=== PATIENT | male | born 1975 | race Caucasian/White ===

== ENCOUNTER 2020-09-13 14:53 | Emergency (ER) | payer SELFPAY ==
[2020-09-13 15:22] VITALS: BP 159/98; PULSE 58; RESP 18; TEMP 36.4; O2SAT 100; BMI 24.4
--- NOTE | 2020-09-13 15:37 | ED_ITS ---
Documented by User: SUSIE Garza 09/14/20 07:08 HPI - Nausea/Vomiting/Diarrhea General: Chief complaint: Nausea/Vomiting/Diarrhea Stated complaint: vomiting uncontrollably for last hour and half Time Seen by Provider: 09/13/20 15:32 History of Present Illness: HPI Narrative: Patient arrives a with vomiting since 2:00 today he is with his fianc?e. She said and that he has possible celiac disease been having problems for months she has been with him for about 90 days. For some reason the pain is worse today and vomiting again since 2:00. Patient not running fever has had some diarrhea is on opioid abuse medication. Patient is asking for medicine for nausea. MD elicited complaint: nausea, vomiting, diarrhea and abdominal pain Pertinent past history: other (Opioid abuse denies marijuana use) Onset (ago): month(s) Description of vomiting: bilious Description of diarrhea: semi-solid Associated nausea: Yes Associated abdominal pain: Yes Location of pain: Diffuse Severity: moderate Quality: aching Exacerbating factors: eating Relieving factors: none Associated symtoms: Reports no associated symptoms and nausea; Denies anxiety, change in vision, chest pain or headache(s) Review of Systems Narrative: Abdominal pain on and off for the last few months been worse the last few weeks fianc? says and then he vomited since 2 today Const: Denies: fever(s), chills or body aches Eyes: Denies: change in vision or blurry vision ENMT: Denies: throat pain or nasal congestion Card: Denies: chest pain or dyspnea on exertion Resp: Denies: dyspnea, productive cough or non-productive cough GI: Reports: abdominal pain, nausea, vomiting and diarrhea : Denies: difficulty urinating Musc: Denies: extremity pain Skin/Breast: Denies: rash Neuro: Denies: headache(s) Psych: Denies: anxiety or depression Festus/Lymph: Denies: easy bruising PFSH ED PFSH: Social History (Updated 07/02/20 @ 10:52 by Caroline Lay LPN) Smoking and tobacco status: current every day smoker Physical Exam Const: COMMON NORMALS: no acute distress, average body habitus and patient oriented x3 HENMT: COMMON NORMALS: normocephalic HEAD & SCALP: normal to inspection and normocephalic FACE & SINUS: normal facial exam Eye: COMMON NORMALS: conjunctivae normal GENERAL EYE: appearance normal, both eyes and all related structures CONJUNCTIVA: Yes conjunctivae normal Neck/C-Spine: COMMON NORMALS: no JVD Chest: COMMONS NORMALS: normal inspection of the chest Resp: COMMON NORMALS: normal respiratory effort and clear to auscultation bilaterally AUSCULTATION: clear to auscultation bilaterally Cardio: COMMON NORMALS: no JVD, regular rate and regular rhythm RATE: regular rate RHYTHM: regular rhythm GI: COMMON NORMALS: Normal to inspection, nondistended, normoactive bowel sounds present PALPATION: Yes Tenderness to palpation present (GI) Extremity: COMMON NORMALS: normal to inspection and full ROM Neuro: COMMON NORMALS: patient oriented x3 Course Vital Signs: Vital signs: Vital Signs Temperature 97.6 F 09/13/20 15:22 Pulse Rate 58 L 09/13/20 15:22 Respiratory Rate 16 09/13/20 20:49 Blood Pressure 159/98 09/13/20 15:22 Pulse Oximetry 100 09/13/20 15:22 MDM - Nausea/Vomiting/Diarrhea Lab Data: Labs: Lab Results 09/13/20 09/13/20 09/13/20 Range/Units 16:52 16:52 18:06 WBC Cancelled 11.1 H Corrected WBC Cancelled RBC Cancelled 4.36 Hgb Cancelled 13.1 Hct Cancelled 39.6 L MCV Cancelled 90.8 MCH Cancelled 30.0 MCHC Cancelled 33.1 RDW Cancelled 12.3 Plt Count Cancelled 176 MPV Cancelled 10.3 Gran % Cancelled Neut % (Auto) Cancelled 90.9 Lymph % (Auto) Cancelled 6.0 [place] % (Auto) Cancelled 2.4 Eos % (Auto) Cancelled 0.1 Baso % (Auto) Cancelled 0.2 Neut # (Auto) Cancelled 10.07 H Lymph # (Auto) Cancelled 0.7 L [place] # (Auto) Cancelled 0.3 Eos # (Auto) Cancelled 0.0 Baso # (Auto) Cancelled 0.0 Absolute Gran (aut o) Cancelled Nucleated RBC % (a uto) Cancelled 0 Nucleated RBCs # Cancelled 0.0 Sodium 140 (136-145) mmol/L Potassium 4.1 (3.5-5.1) mmol/L Chloride 99 (98-107) mmol/L Carbon Dioxide 28 (22-29) mmol/L Anion Gap 17.1 (5-19) BUN 13 (6-20) mg/dL Creatinine 0.8 (0.7-1.2) mg/dL GFR Calculation 104.1 (90-130) mL/min Glucose 127 H (65-115) mg/dL Calculated Osmolal ity 292 (285-295) mOsm/k g Calcium 10.4 (8.5-10.5) mg/dL Magnesium 1.9 (1.7-2.3) mg/dL Total Bilirubin 0.5 (0.15-1.2) mg/dL AST 47 H (0-40) U/L ALT 65 H (0-41) U/L Alkaline Phosphata se 66 (40-130) IU/L Total Protein 8.2 (6.6-8.7) g/dL Albumin 5.0 (3.5-5.2) g/dL Globulin 3.2 (1.3-4.6) g/dL Lipase 33 (13-60) U/L Urine Color (Yellow) Urine Appearance (CLEAR) Urine pH (5-7) Ur Specific Gravit y (1.005-1.030) Urine Protein (Negative) Urine Glucose (UA) (Normal) Urine Ketones (Negative) Urine Blood (Negative) Urine Nitrate (Negative) Urine Bilirubin (Negative) Urine Urobilinogen (Negative) mg/dL Ur Leukocyte Debi ase (Negative) Ethyl Alcohol < 10 (0-10) mg/dL 10/15/20 Range/Units 19:30 WBC Corrected WBC RBC Hgb Hct MCV MCH MCHC RDW Plt Count MPV Gran % Neut % (Auto) Lymph % (Auto) [place] % (Auto) Eos % (Auto) Baso % (Auto) Neut # (Auto) Lymph # (Auto) [place] # (Auto) Eos # (Auto) Baso # (Auto) Absolute Gran (aut o) Nucleated RBC % (a uto) Nucleated RBCs # Sodium (136-145) mmol/L Potassium (3.5-5.1) mmol/L Chloride (98-107) mmol/L Carbon Dioxide (22-29) mmol/L Anion Gap (5-19) BUN (6-20) mg/dL Creatinine (0.7-1.2) mg/dL GFR Calculation (90-130) mL/min Glucose (65-115) mg/dL Calculated Osmolal ity (285-295) mOsm/k g Calcium (8.5-10.5) mg/dL Magnesium (1.7-2.3) mg/dL Total Bilirubin (0.15-1.2) mg/dL AST (0-40) U/L ALT (0-41) U/L Alkaline Phosphata se (40-130) IU/L Total Protein (6.6-8.7) g/dL Albumin (3.5-5.2) g/dL Globulin (1.3-4.6) g/dL Lipase (13-60) U/L Urine Color Yellow (Yellow) Urine Appearance Clear (CLEAR) Urine pH 6.5 (5-7) Ur Specific Gravit y 1.010 (1.005-1.030) Urine Protein Neg (Negative) Urine Glucose (UA) Norm (Normal) Urine Ketones 1+ H (Negative) Urine Blood Neg (Negative) Urine Nitrate Negative (Negative) Urine Bilirubin 2+ H (Negative) Urine Urobilinogen Neg (Negative) mg/dL Ur Leukocyte Debi ase Negative (Negative) Ethyl Alcohol (0-10) mg/dL Discharge Plan Discharge Patient Disposition: Home Clinical Impression: Gastroenteritis Nausea & vomiting Qualifiers: Vomiting type: unspecified Vomiting Intractability: unspecified Qualified Code(s): R11.2 - Nausea with vomiting, unspecified Condition: Stable Prescriptions: New Zofran 4 mg tablet 4 mg PO 6XD PRN (Reason: nausea and vomiting) 4 Days Qty: 10 RF: 0 No Action buprenorphine HCl 8 mg tablet, sublingual 8 mg SUBLINGUAL BID RF: 0 Discharge Orders: Discharge Order (Routine); Ordered 09/13/20 Ordered By: Erika Fowler Discharge Diet: Advance as tolerated and Clear Liquid Discharge Activity: Limit activity as instructed Patient Instructions: Gastroenteritis (ED), Acute Nausea and Vomiting (ED) Activity Restrictions/Additional Instructions: Rest at home today and tomorrow Push fluids, wash hands frequently, follow-up with your primary care provider in 3 to 4 days for reevaluation Return to emergency department if you develop blood in your stool, blood while vomiting, vomiting with use of Zofran, inability to keep fluids down. Continue current medications Clear liquid diet for the first 12 hours, then may advance to bland diet such as crackers, bread or chicken noodle soup Discharge Date/Time: 09/13/20 20:49 Coding Level of Care Code ED Curtain Drier for Chg Fwd Exam Comprehensive Documented by User: BARBARA Thomas 09/13/20 22:21 HPI - Nausea/Vomiting/Diarrhea General: Chief complaint: Nausea/Vomiting/Diarrhea Stated complaint: vomiting uncontrollably for last hour and half Time Seen by Provider: 09/13/20 15:32 [facility] ED PFS: Social History (Updated 07/02/20 @ 10:52 by Caroline Lay LPN) Smoking and tobacco status: current every day smoker Course ED course: Transition of care from Declan Vieira, 45-year-old male patient presents to the emergency department with acute onset of nausea vomiting that started at 2 pm today. He reports several day history of stomach upset. His significant other who is with him reports he has been around paint which causes him to experience stomach upset. He is complaining of intense anxiety, requesting Ativan. Hydroxyzine was offered but he says he does not like the way it makes him feel. He has history of substance abuse, heroin, last use was November 2019. Reports was in psychiatric facility, detox with completion of the program, currently in treatment at [facility] by outpatient and is doing well. He denies relapse. Zofran was administered, CT abdomen pelvis without acute findings, he was able to tolerate p.o. fluids without difficulty. Able to ambulate in the ED without difficulty, serology results and CT findings discussed with patient and significant other, questions were answered, appropriate follow-up recommended with primary care. Vital Signs: Vital signs: Vital Signs Temperature 97.6 F 09/13/20 15:22 Pulse Rate 58 L 09/13/20 15:22 Respiratory Rate 16 09/13/20 20:49 Blood Pressure 159/98 09/13/20 15:22 Pulse Oximetry 100 09/13/20 15:22 MDM - Nausea/Vomiting/Diarrhea Lab Data: Labs: Lab Results 09/13/20 09/13/20 09/13/20 Range/Units 16:52 16:52 18:06 WBC Cancelled 11.1 H Corrected WBC Cancelled RBC Cancelled 4.36 Hgb Cancelled 13.1 Hct Cancelled 39.6 L MCV Cancelled 90.8 MCH Cancelled 30.0 MCHC Cancelled 33.1 RDW Cancelled 12.3 Plt Count Cancelled 176 MPV Cancelled 10.3 Gran % Cancelled Neut % (Auto) Cancelled 90.9 Lymph % (Auto) Cancelled 6.0 [place] % (Auto) Cancelled 2.4 Eos % (Auto) Cancelled 0.1 Baso % (Auto) Cancelled 0.2 Neut # (Auto) Cancelled 10.07 H Lymph # (Auto) Cancelled 0.7 L [place] # (Auto) Cancelled 0.3 Eos # (Auto) Cancelled 0.0 Baso # (Auto) Cancelled 0.0 Absolute Gran (aut o) Cancelled Nucleated RBC % (a uto) Cancelled 0 Nucleated RBCs # Cancelled 0.0 Sodium 140 (136-145) mmol/L Potassium 4.1 (3.5-5.1) mmol/L Chloride 99 (98-107) mmol/L Carbon Dioxide 28 (22-29) mmol/L Anion Gap 17.1 (5-19) BUN 13 (6-20) mg/dL Creatinine 0.8 (0.7-1.2) mg/dL GFR Calculation 104.1 (90-130) mL/min Glucose 127 H (65-115) mg/dL Calculated Osmolal ity 292 (285-295) mOsm/k g Calcium 10.4 (8.5-10.5) mg/dL Magnesium 1.9 (1.7-2.3) mg/dL Total Bilirubin 0.5 (0.15-1.2) mg/dL AST 47 H (0-40) U/L ALT 65 H (0-41) U/L Alkaline Phosphata se 66 (40-130) IU/L Total Protein 8.2 (6.6-8.7) g/dL Albumin 5.0 (3.5-5.2) g/dL Globulin 3.2 (1.3-4.6) g/dL Lipase 33 (13-60) U/L Urine Color (Yellow) Urine Appearance (CLEAR) Urine pH (5-7) Ur Specific Gravit y (1.005-1.030) Urine Protein (Negative) Urine Glucose (UA) (Normal) Urine Ketones (Negative) Urine Blood (Negative) Urine Nitrate (Negative) Urine Bilirubin (Negative) Urine Urobilinogen (Negative) mg/dL Ur Leukocyte Debi ase (Negative) Ethyl Alcohol < 10 (0-10) mg/dL 09/13/20 Range/Units 19:30 WBC Corrected WBC RBC Hgb Hct MCV MCH MCHC RDW Plt Count MPV Gran % Neut % (Auto) Lymph % (Auto) [place] % (Auto) Eos % (Auto) Baso % (Auto) Neut # (Auto) Lymph # (Auto) [place] # (Auto) Eos # (Auto) Baso # (Auto) Absolute Gran (aut o) Nucleated RBC % (a uto) Nucleated RBCs # Sodium (136-145) mmol/L Potassium (3.5-5.1) mmol/L Chloride (98-107) mmol/L Carbon Dioxide (22-29) mmol/L Anion Gap (5-19) BUN (6-20) mg/dL Creatinine (0.7-1.2) mg/dL GFR Calculation (90-130) mL/min Glucose (65-115) mg/dL Calculated Osmolal ity (285-295) mOsm/k g Calcium (8.5-10.5) mg/dL Magnesium (1.7-2.3) mg/dL Total Bilirubin (0.15-1.2) mg/dL AST (0-40) U/L ALT (0-41) U/L Alkaline Phosphata se (40-130) IU/L Total Protein (6.6-8.7) g/dL Albumin (3.5-5.2) g/dL Globulin (1.3-4.6) g/dL Lipase (13-60) U/L Urine Color Yellow (Yellow) Urine Appearance Clear (CLEAR) Urine pH 6.5 (5-7) Ur Specific Gravit y 1.010 (1.005-1.030) Urine Protein Neg (Negative) Urine Glucose (UA) Norm (Normal) Urine Ketones 1+ H (Negative) Urine Blood Neg (Negative) Urine Nitrate Negative (Negative) Urine Bilirubin 2+ H (Negative) Urine Urobilinogen Neg (Negative) mg/dL Ur Leukocyte Debi ase Negative (Negative) Ethyl Alcohol (0-10) mg/dL Imaging Data^: CT Abd/Pel: Radiologist's impression: [facility] [address] [place] [address] CT Scan Report Signed Patient: FANNIE HER Unit #: [id number] : 1975 Age/Sex: 45 / M ADM Date: 09/13/20 Loc: ER Room/Bed: Attending Dr: Ordering Provider/Ordering MD: Ann Marie Vieira Sr, RESIDENTIAL SALES EXECUTIVE- Date of Service: 09/13/20 Procedure(s): CT abdomen pelvis w con* [id number] Accession Number(s): [id number] Report Number: [id number] PROCEDURE INFORMATION: Exam: CT Abdomen And Pelvis With Contrast Exam date and time: 09/13/2020 4:04 PM Age: 45 years old Clinical indication: Nausea and vomiting and other: Diarrhea; Additional info: Abd pain TECHNIQUE: Imaging protocol: Computed tomography of the abdomen and pelvis with intravenous contrast. Radiation optimization: All CT scans at this facility use at least one of these dose optimization techniques: automated exposure control; mA and/or kV adjustment per patient size (includes targeted exams where dose is matched to clinical indication); or iterative reconstruction. Contrast material: OMNI 300; Contrast volume: 95 ml; Contrast route: INTRAVENOUS (IV); COMPARISON: No relevant prior studies available. RADIATION DOSE METRICS: Total DLP (mGy-cm): 480.66 FINDINGS: Lungs: Limited assessment of the lung bases fails to reveal evidence for active cardiopulmonary process. Liver: Unremarkable. No mass. Gallbladder and bile ducts: Normal. No calcified stones. No ductal dilation. Pancreas: Normal. No ductal dilation. Spleen: Normal. No splenomegaly. Adrenals: Normal. No mass. Kidneys and ureters: Rare bilateral tiny foci of nonobstructing calyceal nephrolithiasis all under 3 mm. No hydronephrosis or perinephric fluid. Stomach and bowel: Unremarkable. No obstruction. No mucosal thickening. Appendix: No evidence of appendicitis. Intraperitoneal space: Unremarkable. No free air. No significant fluid collection. Vasculature: Unremarkable. No abdominal aortic aneurysm. Lymph nodes: No current visible evidence of active mesenteric or retroperitoneal lymphadenopathy. Urinary bladder: Unremarkable as visualized. Reproductive: Unremarkable as visualized. Bones/joints: No visible active or acute osseous pathology. Soft tissues: Unremarkable. CT/CT abdomen pelvis w con* [id number] IMPRESSION: 1. Bilateral nephrolithiasis. 2. Currently no visible evidence of acute abdominal or pelvic pathologic process. Radiation Dose CTDIVOL = (mGy): DLP = 480.66 (mGy-cm) Dictated By: Lester Brooks Discharge Plan Discharge Patient Disposition: Home Clinical Impression: Gastroenteritis Nausea & vomiting Qualifiers: Vomiting type: unspecified Vomiting Intractability: unspecified Qualified Code(s): R11.2 - Nausea with vomiting, unspecified Condition: Stable Prescriptions: New Zofran 4 mg tablet 4 mg PO 6XD PRN (Reason: nausea and vomiting) 4 Days Qty: 10 RF: 0 No Action buprenorphine HCl 8 mg tablet, sublingual 8 mg SUBLINGUAL BID RF: 0 Discharge Orders: Discharge Order (Routine); Ordered 09/13/20 Ordered By: Erika Fowler Discharge Diet: Advance as tolerated and Clear Liquid Discharge Activity: Limit activity as instructed Patient Instructions: Gastroenteritis (ED), Acute Nausea and Vomiting (ED) Activity Restrictions/Additional Instructions: Rest at home today and tomorrow Push fluids, wash hands frequently, follow-up with your primary care provider in 3 to 4 days for reevaluation Return to emergency department if you develop blood in your stool, blood while vomiting, vomiting with use of Zofran, inability to keep fluids down. Continue current medications Clear liquid diet for the first 12 hours, then may advance to bland diet such as crackers, bread or chicken noodle soup Discharge Date/Time: 09/13/20 20:49 Coding Level of Care Code ED Curtain Drier for Chg Fwd Exam Comprehensive
[2020-09-13] MEDS: ondansetron 2 mg/ML SDV 2 mL 4 MG IVP ×2 (17:01→18:11)
[2020-09-13] MEDS: sodium chloride 0.9% 1,000 ML 999 ML IV (17:01)
[2020-09-13 17:29] LABS: Alanine Aminotransferase 65 U/L (0-41); Alcohol Level < 10 mg/dL (0-10); Alkaline Phosphatase 66 IU/L (40-130); Anion Gap 17.1 (5-19); Aspartate Amino Transferase 47 U/L (0-40); Blood Urea Nitrogen 13 mg/dL (6-20); Calcium 10.4 mg/dL (8.5-10.5); Carbon Dioxide 28 mmol/L (22-29); Chloride 99 mmol/L (98-107); Creatinine Clr Calc Pharmacy 129.2807; Globulin 3.2 g/dL (1.3-4.6); Glomerular Filtration Rate 104.1 mL/min (90-130); Glucose 127 mg/dL (65-115); Lipase 33 U/L (13-60); Magnesium 1.9 mg/dL (1.7-2.3); Osmolality Calculated 292 mOsm/kg (285-295); Potassium 4.1 mmol/L (3.5-5.1); Sodium 140 mmol/L (136-145); Total Bilirubin 0.5 mg/dL (0.15-1.2); Total Protein 8.2 g/dL (6.6-8.7)
[2020-09-13] MEDS: iohexol 300 mg/mL 100 mL Btl IV (17:56)
[2020-09-13 18:31] LABS: Basophils % 0.2 %; Eosinophils % 0.1 %; Hematocrit 39.6 % (42.0-52.0); Hemoglobin 13.1 g/dL (11.7-16.6); Lymphocytes # 0.7 10^3/uL (0.8-4.8); Mean Corpuscular HGB Conc 33.1 g/dL (30.0-36.0); Mean Corpuscular Volume 90.8 fL (80-94); Mean Platelet Volume 10.3 fL (7.4-10.4); Monocytes # 0.3 10^3/uL (0.2-0.9); Monocytes % 2.4 %; Neutrophils # 10.07 10^3/uL (1.8-7.7); Neutrophils % 90.9 %; Nucleated Red Blood Cells % 0 %; Platelet Count 176 10^3/cmm (130-400); Red Blood Count 4.36 10^6/uL (4.1-5.3); Red Cell Distribution Width 12.3 % (12.1-15.1); White Blood Count 11.1 10^3/uL (4.0-10.0)
[2020-09-13 19:59] LABS: Add Urine Microscopic? NO
[2020-09-13 20:07] LABS: Bilirubin Urine 2+ (Negative); Blood Urine Neg (Negative); Glucose Urine UA Norm (Normal); Ketones Urine 1+ (Negative); Leukocyte Esterase Urine Negative (Negative); Nitrate Urine Negative (Negative); Protein Urine Neg (Negative); Urine Appearance Clear (CLEAR); Urine Color Yellow (Yellow); Urobilinogen Urine Neg (Negative); pH Urine 6.5 (5-7)
[2020-09-13 20:49] VITALS: RESP 16
== END 2020-09-13 20:49 | disposition home or self-care (01) ==
PROVIDERS: Emergency Medicine; Nurse Practitioner Family; Emergency Provider Nurse Practitioner Family
DX: K52.9 Noninfective gastroenteritis and colitis, unspecified (principal); F17.210 Nicotine dependence, cigarettes, uncomplicated
CPT/HCPCS: 12345; 74177; 80053; 80307; 81003; 83690; 83735; 85025; 96361; 96374; 96375; 96376; 99283; J2405; J7030; Q9967

== ENCOUNTER 2020-10-10 08:14 | Emergency (ER) | payer SELFPAY ==
[2020-10-10 08:17] VITALS: PULSE 82; RESP 18; TEMP 36.4; O2SAT 97; BMI 23.0
[2020-10-10 08:28] VITALS: BP 124/84; PULSE 74; RESP 18; O2SAT 96
--- NOTE | 2020-10-10 08:35 | W.ED.ANXIETY ---
HPI - Anxiety General: Chief Complaint: Anxiety Stated Complaint: Panic Attacks/Anxiety Time Seen by Provider: 10/10/20 08:24 History of Present Illness: HPI narrative: 45-year-old male presents emergency room with complaint of anxiety. MD complaint: anxiety Onset (ago): hour(s) Symptoms: palpitations, extremity numbness/tingling, perioral numbness/tingling, dry mouth and sense of impending doom Severity: severe Quality: constant Place: home History of similar episodes: Yes Relieving factors: nothing Associated symptoms: Reports nausea; Deny anorexia, chest pain, chills, confusion, diaphoresis, fever(s), headache(s), malaise, palpitations, short of breath, syncope, vomiting or weakness Review of Systems Const: Denies: fever(s), chills, malaise or diaphoresis ENMT: Denies: throat pain, ear or mastoid pain, nasal discharge or nasal congestion Card: Denies: chest pain, palpitations or syncope Resp: Denies: dyspnea, productive cough or non-productive cough GI: Reports: nausea; Denies: vomiting : Denies: flank pain, dysuria, urinary frequency or urinary urgency Skin/Breast: Denies: rash or pruritus Neuro: Denies: headache(s) or confusion PFSH ED PFSH: Medical History (Updated 10/10/20 @ 08:37 by Yonis Jacques DO) History of substance abuse Social History (Updated 07/02/20 @ 10:52 by Caroline Lay LPN) Smoking and tobacco status: current every day smoker Physical Exam Const: GENERAL APPEARANCE: cooperative ORIENTATION/CONSCIOUSNESS: Yes awake, Yes oriented to person, Yes oriented to place and Yes oriented to time HENMT: COMMON NORMALS: normocephalic, atraumatic and hearing grossly normal bilaterally HEAD & SCALP: normocephalic and atraumatic Eye: COMMON NORMALS: Equal, round and reactive pupils present, EOMs intact bilaterally, conjunctivae normal and no scleral icterus CONJUNCTIVA: Yes conjunctivae normal PUPIL: Yes Equal, round and reactive pupils present Neck/C-Spine: COMMON NORMALS: no JVD Resp: COMMON NORMALS: normal respiratory effort, No retractions, No use of accessory muscles and clear to auscultation bilaterally AUSCULTATION: clear to auscultation bilaterally Cardio: COMMON NORMALS: no JVD, regular rate, regular rhythm and No murmurs present (Cardio) RATE: regular rate RHYTHM: regular rhythm GI: COMMON NORMALS: Soft to palpation and No hepatosplenomegaly present AUSCULTATION: Yes normoactive bowel sounds PALPATION: Yes Soft to palpation, No Tenderness to palpation present (GI), No Guarding due to palpation present (GI) and Yes No hepatosplenomegaly present Extremity: COMMON NORMALS: normal to inspection, capillary refill normal, no clubbing, cyanosis or edema, no calf tenderness and no pedal edema Neuro: SENSORIUM/ORIENTATION: Yes oriented to person, Yes oriented to place and Yes oriented to time Skin: COMMON NORMALS: no rashes or lesions noted GENERAL SKIN EXAM: no rashes or lesions noted Course Vital Signs: Vital signs: Vital Signs Temperature 97.5 F L 10/10/20 08:17 Pulse Rate 74 10/10/20 08:28 Respiratory Rate 18 10/10/20 08:28 Blood Pressure 124/84 10/10/20 08:28 Pulse Oximetry 96 10/10/20 08:28 Discharge Plan Discharge Patient Disposition: Home Clinical Impression: Acute anxiety Condition: Stable Prescriptions: New hydroxyzine HCl 25 mg tablet 25 mg PO Q6H PRN (Reason: anxiety) Qty: 10 RF: 0 No Action buprenorphine HCl 8 mg tablet, sublingual 8 mg SUBLINGUAL BID RF: 0 Discharge Orders: Discharge Order (Routine); Ordered 10/10/20 Ordered By: Yonis Jacques Activity Restrictions/Additional Instructions: Case management will call to get you set up to be seen at [facility] Coding Level of Care Code ED Fire Operations Forester for William Chadwick
[2020-10-10] MEDS: LORazepam 2 mg Tablet PO (08:36)
[2020-10-10 09:03] VITALS: BP 123/84; PULSE 64; RESP 16; TEMP 36.6; O2SAT 96
--- NOTE | 2020-10-10 13:22 | DCPLANNER ---
activities manager had message to speak with patient about services at [facility] [place]. activities manager called [phone], unable to speak with patient at this time, and unable to leave a voicemail for patient, the voicemail box is full and cannot take anymore messages.
== END 2020-10-10 09:12 | disposition home or self-care (01) ==
PROVIDERS: Emergency Provider Family Medicine
DX: F41.9 Anxiety disorder, unspecified (principal); F17.200 Nicotine dependence, unspecified, uncomplicated; F19.11 Other psychoactive substance abuse, in remission
CPT/HCPCS: 12345; 99281; 99282

== ENCOUNTER 2020-10-15 07:53 | Emergency (ER) | payer SELFPAY ==
[2020-10-15 07:59] VITALS: PULSE 129; RESP 15; TEMP 36.7; O2SAT 96
--- NOTE | 2020-10-15 08:13 | ED_ITS ---
HPI - Psych General: Chief Complaint: Psychiatric Symptoms Stated Complaint: Panic Attack/Anxiety Time Seen by Provider: 10/15/20 08:00 History of Present Illness: HPI Narrative: Patient is a 45-year-old male comes to the ED with anxiety/ panic attacks. Patient has a past medical history of opiate abuse and is currently taking buprenorphine as opiate replacement therapy. Patient says buprenorphine causes increased anxiety symptoms. Patient says he has been waking up every morning for over a month with anxiety and panic attack symptoms. He has an appointment with his methadone clinic on Thursday. He is going to go to methadone clinic today to see if he can get med changed. He was seen here on October 10 for same complaint and was discharged with a prescription of hydroxyzine to take for anxiety. Patient says he has been taking the hydroxyzine and it has not helped. Review of Systems Const: Denies: fever(s), chills or fatigue Eyes: Denies: change in vision or eye discomfort ENMT: Denies: throat pain, odynophagia, nasal discharge or nasal congestion Card: Denies: chest pain, palpitations, edema, swelling of feet/ankles, dyspnea on exertion or orthopnea Resp: Denies: dyspnea, productive cough or non-productive cough GI: Denies: abdominal pain, nausea, vomiting, diarrhea, constipation or hematochezia : Denies: flank pain, difficulty urinating, dysuria or hematuria Musc: Denies: neck pain, back pain or extremity swelling Skin/Breast: Denies: rash or new lesions Neuro: Denies: headache(s), numbness in extremities or weakness in extremities Psych: Reports: anxiety and panic attacks [facility] ED PFSH: Medical History History of substance abuse Social History Smoking and tobacco status: current every day smoker Physical Exam Const: COMMON NORMALS: no acute distress, patient oriented x3 and alert GENERAL APPEARANCE: cooperative and anxious HENMT: COMMON NORMALS: normocephalic HEAD & SCALP: normocephalic MOUTH: Normal oral and palatal mucosa present THROAT: posterior oropharynx normal and uvula midline Eye: COMMON NORMALS: Equal, round and reactive pupils present PUPIL: Yes Equal, round and reactive pupils present Neck/C-Spine: COMMON NORMALS: supple GENERAL: Yes normal visual inspection Resp: COMMON NORMALS: normal respiratory effort, No retractions, No use of accessory muscles and clear to auscultation bilaterally AUSCULTATION: clear to auscultation bilaterally Cardio: COMMON NORMALS: regular rate, regular rhythm, S1 normal heart sound present, S2 normal heart sound present, No gallops present (Cardio), No clicks present (Cardio), No murmurs present (Cardio) and Peripheral pulses 2+ throughout RATE: regular rate RHYTHM: regular rhythm HEART SOUNDS: S1 normal heart sound present and S2 normal heart sound present PERIPHERAL PULSES: Peripheral pulses 2+ throughout GI: COMMON NORMALS: Normal to inspection, nondistended, normoactive bowel sounds present, Soft to palpation, non-tender and no masses PALPATION: Yes Soft to palpation : COMMON NORMALS: Yes no CVA tenderness BLADDER/KIDNEY EXAM: Yes no CVA tenderness Back/Pelvis: COMMON NORMALS: no CVA tenderness Extremity: COMMON NORMALS: normal to inspection and no pedal edema Neuro: COMMON NORMALS: patient oriented x3 and moves all extremities SENSORIUM/ORIENTATION: Yes alert Psych: COMMON NORMALS: cooperative and speech normal ATTITUDE: Yes calm SPEECH: Yes normal speech MOOD & AFFECT: Yes anxious THOUGHT CONTENT: No Suicidality present Skin: GENERAL SKIN EXAM: dry skin MDM - Psych MDM Narrative: Medical decision making narrative: Patient is a 45-year-old male who comes to the ED with anxiety/panic attacks. Patient has a history of opiate abuse and is currently taking buprenorphine as opiate replacement therapy. For over a month now he has been having this acute anxiety with panic attacks after since at the methadone clinic he switched from methadone to buprenorphine. Patient has an appointment on Thursday at methadone clinic to get med adjusted. Patient was given some Ativan while here in the ED and it helped his symptoms. Patient was discharged with a written prescription for ten 1 mg Ativan tablets. Return ED precautions given. Patient was told he needs to follow-up with his PCP for further medical management of anxiety. Patient understood and agreed with plan. Discharge Plan Discharge Patient Disposition: Home Clinical Impression: Acute anxiety Condition: Stable Prescriptions: No Action buprenorphine HCl 8 mg tablet, sublingual 8 mg SUBLINGUAL BID RF: 0 hydroxyzine HCl 25 mg tablet 25 mg PO Q6H PRN (Reason: anxiety) Qty: 10 RF: 0 Discharge Orders: Discharge Order (Routine); Ordered 10/15/20 Ordered By: Miguel Salas Referrals: Harjit Kohli, [Primary Care Provider] - Discharge Diet: Regular Discharge Activity: Resume usual activity Patient Instructions: Anxiety (ED) Activity Restrictions/Additional Instructions: Follow-up with medical provider as directed. Take medications as prescribed. Return to the ER or your medical provider if condition worsens. Please read and understand discharge instructions. If any questions, please ask. Coding Level of Care Code ED Former Hand for Anibalg Fwd Exam Comprehensive
[2020-10-15] MEDS: LORazepam 2 mg/mL INJ 1 mL IM (08:32)
[2020-10-15 08:59] VITALS: BP 130/81; PULSE 56; RESP 16; O2SAT 97
== END 2020-10-15 09:01 | disposition home or self-care (01) ==
PROVIDERS: Emergency Provider Physician Assistant; PCP Electrodiagnostic Medicine
DX: F41.9 Anxiety disorder, unspecified (principal); F17.210 Nicotine dependence, cigarettes, uncomplicated
CPT/HCPCS: 12345; 96372; 99284; J2060

== ENCOUNTER 2021-02-23 20:52 | Emergency (ER) | payer SELFPAY ==
[2021-02-23 21:00] VITALS: BP 142/88; PULSE 91; RESP 21; TEMP 36.4; O2SAT 99; BMI 25.7
--- NOTE | 2021-02-23 22:03 | W.ED.GENADLT ---
HPI - General Adult General: Chief complaint: General Medical Stated complaint: medication withdrawl Time Seen by Provider: 02/23/21 21:33 Source: patient Mode of arrival: ambulatory Limitations: no limitations History of Present Illness: HPI narrative: 45-year-old male patient presents to the emergency department due to withdrawal symptoms. He reports ran out of Vyvanse 2 days ago, reports today, onset of chills anxiety and sweats. He reports his primary care provider, calls in his prescription of Vyvanse to the pharmacy. States pharmacy was closed today and could not get his medication filled. Patient has prescription bottle with him. 30 tablets were dispensed on 01/28/2021. Onset (ago): day(s) (1-2) Severity: moderate Pain Consistency: constant Relieving factors: none Exacerbating factors: none Associated symptoms: Reports nausea; Deny chest pain, diaphoresis, dyspnea, headache(s), rash or palpitations Treatments prior to arrival: none Review of Systems General: Reports: 10 or more systems reviewed and unremarkable except in HPI and below Const: Denies: fever(s), chills or diaphoresis Eyes: Denies: blurry vision or eye redness ENMT: Denies: throat pain, dental pain or disequilibrium Card: Denies: chest pain, palpitations or irregular heart rhythm Resp: Denies: dyspnea, productive cough, non-productive cough or wheezing GI: Reports: nausea : Denies: dysuria Musc: Denies: back pain Skin/Breast: Denies: rash or pruritus Neuro: Denies: headache(s), weakness in extremities or behavioral changes Psych: Reports: anxiety and difficulty concentrating (ADHD); Denies: depression, irritability, memory loss, visual hallucinations, auditory hallucinations, suicidal ideation or homicidal ideation Festus/Lymph: Denies: easy bruising PFSH ED PFSH: Medical History History of substance abuse Social History Smoking and tobacco status: current every day smoker cigarettes Packs smoked per day: 1 Years cigarettes smoked: 30 Quit status (tobacco): has tried quititng Number of times tried to quit tobacco: 2 Second hand smoke exposure: Yes Current gender identity: Male Physical Exam Const: COMMON NORMALS: no acute distress, patient oriented x3, healthy appearing and alert GENERAL APPEARANCE: cooperative, comfortable and well hydrated HENMT: COMMON NORMALS: normocephalic, Normal external nose present and moist oral mucous membranes HEAD & SCALP: normocephalic NOSE: Normal external nose present Eye: COMMON NORMALS: Equal, round and reactive pupils present and EOMs intact bilaterally GENERAL EYE: appearance normal, both eyes and all related structures PUPIL: Yes Equal, round and reactive pupils present Neck/C-Spine: COMMON NORMALS: full ROM and no lymphadenopathy GENERAL: Yes normal visual inspection and Yes trachea midline CERVICAL SPINE: Yes cervical ROM normal Lymph: LYMPHATIC: no lymphadenopathy noted Chest: COMMONS NORMALS: normal inspection of the chest and normal palpation of entire chest wall Resp: COMMON NORMALS: normal respiratory effort, No retractions, No use of accessory muscles and clear to auscultation bilaterally EFFORT & INSPECTION: Yes able to speak in complete sentences AUSCULTATION: clear to auscultation bilaterally Cardio: COMMON NORMALS: regular rate, regular rhythm, S1 normal heart sound present, S2 normal heart sound present and Peripheral pulses 2+ throughout RATE: regular rate RHYTHM: regular rhythm HEART SOUNDS: S1 normal heart sound present and S2 normal heart sound present PERIPHERAL PULSES: Peripheral pulses 2+ throughout GI: COMMON NORMALS: Soft to palpation and non-tender INSPECTION: Yes normal to inspection PALPATION: Yes Soft to palpation : COMMON NORMALS: Yes no CVA tenderness BLADDER/KIDNEY EXAM: Yes no CVA tenderness Back/Pelvis: COMMON NORMALS: no CVA tenderness and thoracic and lumbar spine normal to inspection Extremity: COMMON NORMALS: normal to inspection and capillary refill normal Neuro: COMMON NORMALS: patient oriented x3 and no focal motor deficits SENSORIUM/ORIENTATION: Yes alert Psych: COMMON NORMALS: mental status grossly normal, Normal thought process present and cooperative ACTIVITY/MOTOR BEHAVIOR: Yes appropriate eye contact THOUGHT PROCESS: Normal thought process present Skin: COMMON NORMALS: no rashes or lesions noted, turgor normal, no petechiae and no mottling GENERAL SKIN EXAM: no rashes or lesions noted, elasticity normal and turgor normal Course ED course: 45-year-old male patient presents to the emergency department with withdrawal symptoms from Vyvanse. Patient has Vyvanse bottle with him, number 30 tablets were filled on 01/28/2021, enough for 30-day supply. He reports medication is provided by another individual in the home. He states does not administer his medication to himself. It is administered by another individual. He states does not know why his supply is short. Spoke with Dr. Palacio who advised no fill of Vyvanse here in the ED, will place patient on clonidine and Phenergan for withdrawal symptoms, instructed to follow-up with his primary care provider Thursday. Vital Signs: Vital signs: Vital Signs Temperature 97.6 F 02/23/21 21:00 Pulse Rate 91 02/23/21 21:00 Respiratory Rate 18 02/23/21 22:36 Blood Pressure 142/88 02/23/21 21:00 Pulse Oximetry 99 02/23/21 21:00 Discharge Plan Discharge Patient Disposition: Home Clinical Impression: Other stimulant dependence with withdrawal Condition: Stable Prescriptions: New clonidine HCl 0.1 mg tablet 0.1 mg PO TID Qty: 7 RF: 0 promethazine 25 mg tablet 25 mg PO Q6H PRN (Reason: nausea and vomiting) Qty: 10 RF: 0 No Action methadone 40 mg tablet,soluble 60 mg PO DAILY RF: 0 bupropion HCl [Wellbutrin XL] 150 mg tablet extended release 24 hr 150 mg PO QAM Qty: 30 RF: 1 prazosin 5 mg capsule 5 mg PO .HS Qty: 30 RF: 1 mirtazapine [Remeron] 15 mg tablet 15 mg PO .HS Qty: 30 RF: 1 gabapentin 300 mg capsule 300 mg PO TID Qty: 90 RF: 1 Discharge Orders: Discharge ED (Routine); Ordered 02/23/21 Ordered By: Erika Fowler Referrals: Harjit Kohli DO [Primary Care Provider] - Discharge Diet: Usual diet Discharge Activity: Resume usual activity Patient Instructions: Opioid Withdrawal (ED), Opioid Safety Activity Restrictions/Additional Instructions: Return the emergency department if you develop nausea vomiting despite use of promethazine, follow-up with your primary care provider next week for refill of Vyvanse. Take clonidine 3 times daily as needed for withdrawal symptoms, clonidine will make you sleepy so do not drive or operate heavy machinery with use of medication Coding Level of Care Code ED Beauty Shop Manager for William Chadwick
[2021-02-23] MEDS: cloNIDine 0.1 mg Tablet PO (22:34)
[2021-02-23] MEDS: promethazine 25 mg/mL SDV 1 mL IM (22:34)
[2021-02-23 22:36] VITALS: RESP 18
[2021-02-23 22:47] VITALS: BP 129/85; PULSE 58; RESP 18; O2SAT 96
== END 2021-02-23 22:49 | disposition home or self-care (01) ==
PROVIDERS: Emergency Provider Nurse Practitioner Family; PCP Electrodiagnostic Medicine
DX: F15.23 Other stimulant dependence with withdrawal (principal); F17.210 Nicotine dependence, cigarettes, uncomplicated
CPT/HCPCS: 96372; 99283; J2550

== ENCOUNTER 2021-03-19 20:05 | Emergency (ER) | payer SELFPAY ==
[2021-03-19 20:17] VITALS: BP 155/82; PULSE 70; RESP 18; TEMP 36.7; O2SAT 99; BMI 27.8
[2021-03-19 21:18] VITALS: BP 146/94; PULSE 72; RESP 18; O2SAT 97
--- NOTE | 2021-03-19 21:26 | W.ED.GENADLT ---
HPI - General Adult General: Chief complaint: Psychiatric Symptoms Stated complaint: withdrawal symptoms Time Seen by Provider: 03/19/21 21:02 Source: patient Mode of arrival: ambulatory Limitations: no limitations History of Present Illness: HPI narrative: Patient is a 45-year-old male here stating he is withdrawing from clonazepam. He states he was initially placed on this medication in August for seizures. He states he began tapering off this medication last month. He states at the same time they were dosing him with Keppra for better control of the seizures. He states he was on 0.25 mg TID clonazepam and then tapered down to 0.25mg QD x 2 weeks then 0.125mg QD x 2 weeks. Last dose was 2-3 days ago. Patient tells me his symptoms currently include anxiety and what he reports is akathisia symptoms. He states he has withdrawal from benzodiazepines before and was treated with clonidine. He was here last month stating he was withdrawing from Vyvanse. Associated symptoms: Deny chest pain, confusion, dyspnea, headache(s), malaise, rash, palpitations, syncope or vomiting Review of Systems Const: Denies: fever(s), chills, body aches, fatigue or malaise Eyes: Denies: change in vision, blurry vision or photophobia Card: Denies: chest pain, palpitations, irregular heart rhythm, edema, lightheadedness, syncope or pre-syncope Resp: Denies: dyspnea GI: Denies: abdominal pain, nausea or vomiting Skin/Breast: Denies: rash Neuro: Denies: headache(s), difficulty walking, dizziness, confusion, Slurred speech present or seizure-like activity Psych: Reports: anxiety; Denies: suicidal ideation or homicidal ideation [facility] ED PFSH: Medical History History of substance abuse Social History Smoking and tobacco status: current every day smoker cigarettes Packs smoked per day: 1 Years cigarettes smoked: 30 Quit status (tobacco): has tried quititng Number of times tried to quit tobacco: 2 Second hand smoke exposure: Yes Current gender identity: Male Physical Exam Const: COMMON NORMALS: average body habitus, patient oriented x3, alert and well nourished GENERAL APPEARANCE: cooperative and anxious ORIENTATION/CONSCIOUSNESS: Yes awake, Yes oriented to person, Yes oriented to place and Yes oriented to time OTHER: Tremulous HENMT: COMMON NORMALS: normocephalic and atraumatic HEAD & SCALP: normocephalic and atraumatic Resp: COMMON NORMALS: normal respiratory effort and clear to auscultation bilaterally AUSCULTATION: clear to auscultation bilaterally Cardio: COMMON NORMALS: regular rate and regular rhythm RATE: regular rate RHYTHM: regular rhythm Neuro: VERO COMA SCALE: document GCS findings Vero coma scale eye opening: Spontaneous Protection coma scale verbal response: Orientated Protection coma scale motor response: Obey commands Protection coma scale total score: 15 COMMON NORMALS: patient oriented x3, CN's II-XII intact bilaterally, moves all extremities, no focal motor deficits and no sensory deficits noted SENSORIUM/ORIENTATION: Yes alert, Yes oriented to person and Yes oriented to time Skin: COMMON NORMALS: no rashes or lesions noted GENERAL SKIN EXAM: no rashes or lesions noted Course Vital Signs: Vital signs: Vital Signs Temperature 98.0 F 03/19/21 20:17 Pulse Rate 72 03/19/21 21:18 Respiratory Rate 18 03/19/21 21:18 Blood Pressure 146/94 03/19/21 21:53 Pulse Oximetry 97 03/19/21 21:18 MDM - General Adult MDM Narrative: Medical decision making narrative: Patient seemed to have completed a long/sufficient taper from the clonazepam. He does tell me now (he is much improved after the clonidine) that maybe his symptoms were just related to anxiety/psychosomatic. Certainly the anxiety and tremors could be related to benzodiazepine withdrawal. He does not have any perceptual disturbances, psychosis, or seizures (last seizure he reports was 1.5 months ago). His symptoms did improve vastly while here with 0.1 clonidine. He states this has helped previously. I will prescribe him a few days worth of this medication. He has a follow-up appointment with Dr. Kohli in 2 days. Discharge Plan Discharge Patient Disposition: Home Clinical Impression: Anxiety Condition: Stable Prescriptions: New clonidine HCl 0.1 mg tablet 0.1 mg PO BID Qty: 10 RF: 0 No Action Keppra 500 mg tablet 500 mg PO BID@0800,1800 RF: 0 Vitamin D3 1 tab PO DAILY@0800 RF: 0 gabapentin 300 mg capsule 300 mg PO TID@0800,1200,1800 RF: 0 Remeron 15 mg tablet 15 mg PO BEDTIME RF: 0 Discharge Orders: Discharge ED (Routine); Ordered 03/19/21 Ordered By: Merry Flores Referrals: Harjit Kohli DO [Primary Care Provider] - Coding Level of Care Code ED Emergency Dispatch Operator for Chg Fwd Exam Detailed
[2021-03-19 21:53] VITALS: BP 146/94
[2021-03-19] MEDS: cloNIDine 0.1 mg Tablet PO (21:53)
[2021-03-19 22:38] VITALS: PULSE 88; RESP 18; O2SAT 98
== END 2021-03-19 22:41 | disposition home or self-care (01) ==
PROVIDERS: Emergency Provider Physician Assistant; PCP Electrodiagnostic Medicine
DX: F41.9 Anxiety disorder, unspecified (principal); F17.210 Nicotine dependence, cigarettes, uncomplicated
CPT/HCPCS: 99283

== ENCOUNTER 2021-04-16 08:04 | Emergency (ER) | payer SELFPAY ==
--- NOTE | 2021-04-16 08:15 | W.ED.ANXIETY ---
HPI - Anxiety General: Stated Complaint: Anxiety Time Seen by Provider: 04/16/21 08:05 [facility] ED PFSH: Medical History History of substance abuse Social History Smoking and tobacco status: current every day smoker cigarettes Packs smoked per day: 1 Years cigarettes smoked: 30 Quit status (tobacco): has tried quititng Number of times tried to quit tobacco: 2 Second hand smoke exposure: Yes Current gender identity: Male Discharge Plan Discharge Prescriptions: No Action Keppra 500 mg tablet 500 mg PO BID@0800,1800 RF: 0 Vitamin D3 1 tab PO DAILY@0800 RF: 0 gabapentin 300 mg capsule 300 mg PO TID@0800,1200,1800 RF: 0 Remeron 15 mg tablet 15 mg PO BEDTIME RF: 0 clonidine HCl 0.1 mg tablet 0.1 mg PO BID Qty: 10 RF: 0 Coding Level of Care Code ED Juvenile Court Judge for William Chadwick
[2021-04-16 08:24] VITALS: BP 166/96; PULSE 80; RESP 16; TEMP 36.5; O2SAT 99; BMI 27.1
--- NOTE | 2021-04-16 08:28 | W.ED.ANXIETY ---
HPI - Anxiety General: Chief Complaint: Anxiety Stated Complaint: Anxiety Time Seen by Provider: 04/16/21 08:05 Source: patient Mode of arrival: ambulatory Limitations: no limitations History of Present Illness: HPI narrative: Patient is a 46-year-old male who presents to ED today stating he is extremely anxious and is requesting something to help him calm down . Patient tells me he has a history of anxiety. I saw patient on his last visit and during that visit they were trying to taper him off of his Klonopin however patient states he followed up with his PCP Dr. Kohli who had him keep taking this. He tells me he is taking 0.125 mg twice daily. He also takes Remeron daily for his depression. Patient states he did miss his Remeron dose yesterday. He denies any emotional or stressful triggers for his anxiety currently. He is not suicidal or homicidal. He is not experiencing hallucinations. MD complaint: anxiety Onset (ago): hour(s) Severity: moderate Quality: constant Place: home History of similar episodes: Yes Provoking factors: none known Relieving factors: nothing Exacerbating factors: nothing Associated symptoms: Reports no associated symptoms; Deny chest pain, chills, confusion, fever(s), headache(s), malaise, nausea, palpitations, syncope or vomiting Review of Systems Const: Denies: fever(s), chills, body aches, fatigue or malaise Eyes: Denies: change in vision Card: Denies: chest pain, palpitations, irregular heart rhythm, edema, lightheadedness, syncope or pre-syncope Resp: Denies: dyspnea GI: Denies: abdominal pain, nausea or vomiting Musc: Denies: neck pain, back pain or joint pain Skin/Breast: Denies: rash Neuro: Denies: headache(s), numbness in extremities, weakness in extremities, sensory changes, dizziness, confusion, behavioral changes, seizure-like activity, involuntary movements or restless legs Psych: Reports: anxiety and depression [facility] ED PFSH: Medical History History of substance abuse Social History Smoking and tobacco status: current every day smoker cigarettes Packs smoked per day: 1 Years cigarettes smoked: 30 Quit status (tobacco): has tried quititng Number of times tried to quit tobacco: 2 Second hand smoke exposure: Yes Current gender identity: Male Physical Exam Const: COMMON NORMALS: no acute distress, average body habitus, patient oriented x3, no limitations, healthy appearing, alert and well nourished GENERAL APPEARANCE: cooperative and anxious ORIENTATION/CONSCIOUSNESS: Yes awake, Yes oriented to person, Yes oriented to place and Yes oriented to time Resp: COMMON NORMALS: normal respiratory effort and clear to auscultation bilaterally AUSCULTATION: clear to auscultation bilaterally Cardio: COMMON NORMALS: regular rate and regular rhythm RATE: regular rate RHYTHM: regular rhythm Neuro: VERO COMA SCALE: document GCS findings Vero coma scale eye opening: Spontaneous Vero coma scale verbal response: Orientated [place] coma scale motor response: Obey commands [place]ah coma scale total score: 15 COMMON NORMALS: patient oriented x3, moves all extremities, no focal motor deficits, no sensory deficits noted and gait normal SENSORIUM/ORIENTATION: Yes alert, Yes oriented to person, Yes oriented to place and Yes oriented to time Psych: COMMON NORMALS: mental status grossly normal, Normal thought process present, cooperative, normal affect, speech normal, denies hallucinations, denies homicidal ideation and denies suicidal ideation APPEARANCE: Yes grossly normal ATTITUDE: Yes calm ACTIVITY/MOTOR BEHAVIOR: Yes appropriate eye contact and Yes fidgeting SPEECH: Yes normal speech MOOD & AFFECT: Yes euthymic mood THOUGHT PROCESS: Normal thought process present THOUGHT CONTENT: Yes Normal thought content present ATTENTION/CONCENTRATION: Yes attention grossly intact and Yes concentration grossly intact MEMORY/COGNITION: Yes memory grossly intact and Yes cognition grossly intact INSIGHT: Good insight present (Psych) JUDGEMENT: Good judgement present (Psych) Course Vital Signs: Vital signs: Vital Signs Temperature 97.7 F 04/16/21 08:24 Pulse Rate 80 04/16/21 08:24 Respiratory Rate 16 04/16/21 08:24 Blood Pressure 166/96 04/16/21 08:24 Pulse Oximetry 99 04/16/21 08:24 MDM - Anxiety MDM Narrative: Medical decision making narrative: Patient states he feels much better. After speaking to patient further he feels like maybe he experienced a nightmare that triggered some PTSD emotions. Patient has counseling and a psychologist at [facility] that he sees weekly. He has good follow-up with his PCP Dr. Kohli. He feels comfortable going home at this point. Again patient is not suicidal or homicidal. Discharge Plan Discharge Patient Disposition: Home Clinical Impression: Acute anxiety Condition: Stable Prescriptions: No Action Keppra 500 mg tablet 500 mg PO BID@0800,1800 RF: 0 Vitamin D3 1 tab PO DAILY@0800 RF: 0 gabapentin 300 mg capsule 300 mg PO TID@0800,1200,1800 RF: 0 Remeron 15 mg tablet 15 mg PO BEDTIME RF: 0 clonidine HCl 0.1 mg tablet 0.1 mg PO BID Qty: 10 RF: 0 Discharge Orders: Discharge ED (Routine); Ordered 04/16/21 Ordered By: Merry Flores Referrals: Harjit Kohli DO [Primary Care Provider] - Patient Instructions: Anxiety (ED) Coding Level of Care Code ED Sight Effects Specialist for Anibalg Fwd Exam Detailed
[2021-04-16] MEDS: LORazepam 2 mg/mL INJ 1 mL 1 MG IM (08:36)
== END 2021-04-16 09:20 | disposition home or self-care (01) ==
PROVIDERS: Emergency Provider Physician Assistant; PCP Electrodiagnostic Medicine
DX: F41.9 Anxiety disorder, unspecified (principal); F17.210 Nicotine dependence, cigarettes, uncomplicated
CPT/HCPCS: 96372; 99283; J2060

== ENCOUNTER 2021-04-28 08:23 | Emergency (ER) | payer SELFPAY ==
[2021-04-28 08:30] VITALS: BP 168/113; PULSE 82; RESP 15; TEMP 36.1; O2SAT 99; BMI 27.1
--- NOTE | 2021-04-28 08:35 | W.ED.PSYCH ---
HPI - Psych General: Chief Complaint: Psychiatric Symptoms Stated Complaint: PANIC ATTACK/requesting ativan Time Seen by Provider: 04/28/21 08:31 Source: patient Mode of arrival: ambulatory Limitations: no limitations History of Present Illness: HPI Narrative: Patient presents with a panic attack which is a common complaint for him. He states that he gets these several times a week. He normally takes Klonopin twice a day. He does not have control of his own medications. He states that he started having this panic attack this morning at 4 AM. He denies having any suicidal or homicidal ideation. Associated symptoms: Deny depression, homicidal ideation or suicidal ideation Review of Systems General: Reports: 10 or more systems reviewed and unremarkable except in HPI and below Const: Denies: fever(s) Eyes: Denies: change in vision ENMT: Denies: throat pain Card: Denies: chest pain Resp: Denies: dyspnea GI: Denies: abdominal pain, nausea or vomiting : Denies: flank pain Musc: Denies: neck pain or back pain Skin/Breast: Denies: rash Neuro: Denies: headache(s) Psych: Reports: anxiety; Denies: depression, suicidal ideation or homicidal ideation [facility] ED PFSH: Medical History History of substance abuse Social History Smoking and tobacco status: current every day smoker cigarettes Packs smoked per day: 1 Years cigarettes smoked: 30 Quit status (tobacco): has tried quititng Number of times tried to quit tobacco: 2 Second hand smoke exposure: Yes Current gender identity: Male Physical Exam Const: COMMON NORMALS: no acute distress, average body habitus, patient oriented x3, no limitations, healthy appearing, alert and well nourished HENMT: COMMON NORMALS: normocephalic, atraumatic, hearing grossly normal bilaterally, external ears normal, EAC's normal, TM's normal bilaterally, Normal external nose present, Normal nasal mucous membranes and turbinates present, moist oral mucous membranes, oropharynx normal, dentition normal and gingiva normal HEAD & SCALP: normocephalic and atraumatic NOSE: Normal external nose present and Normal nasal mucous membranes and turbinates present EXTERNAL EAR: Yes external ears normal EXTERNAL AUDITORY CANAL: EAC's normal TYMPANIC MEMBRANE: TM's normal bilaterally Neck/C-Spine: COMMON NORMALS: no JVD Resp: COMMON NORMALS: normal respiratory effort, No retractions, No use of accessory muscles, clear to auscultation bilaterally and percussion normal AUSCULTATION: clear to auscultation bilaterally PERCUSSION: percussion normal Cardio: COMMON NORMALS: no JVD, regular rate, regular rhythm, S1 normal heart sound present, S2 normal heart sound present, No gallops present (Cardio), No clicks present (Cardio), No murmurs present (Cardio), No rub (Cardio) and Peripheral pulses 2+ throughout RATE: regular rate RHYTHM: regular rhythm HEART SOUNDS: S1 normal heart sound present and S2 normal heart sound present PERIPHERAL PULSES: Peripheral pulses 2+ throughout Neuro: COMMON NORMALS: patient oriented x3 SENSORIUM/ORIENTATION: Yes alert Psych: COMMON NORMALS: mental status grossly normal, cooperative, denies homicidal ideation and denies suicidal ideation ATTITUDE: Yes calm ACTIVITY/MOTOR BEHAVIOR: Yes fidgeting MOOD & AFFECT: No depressed mood and Yes anxious THOUGHT CONTENT: No Suicidality present and No Homicidality present Course Vital Signs: Vital signs: Vital Signs Temperature 97 F L 04/28/21 08:30 Pulse Rate 82 04/28/21 08:30 Respiratory Rate 15 04/28/21 08:30 Blood Pressure 168/113 04/28/21 08:30 Pulse Oximetry 99 04/28/21 08:30 MDM - Psych MDM Narrative: Medical decision making narrative: Patient given 1 mg of IM Ativan to help with his panic attack. Do not see any reason for further evaluation or treatment at this time as this is a chronic psychiatric condition. Discharge Plan Discharge Patient Disposition: Home Clinical Impression: Panic disorder Condition: Stable Prescriptions: No Action Keppra 500 mg tablet 500 mg PO BID@0800,1800 RF: 0 Vitamin D3 1 tab PO DAILY@0800 RF: 0 gabapentin 300 mg capsule 300 mg PO TID@0800,1200,1800 RF: 0 Remeron 15 mg tablet 15 mg PO BEDTIME RF: 0 clonidine HCl 0.1 mg tablet 0.1 mg PO BID Qty: 10 RF: 0 Discharge Orders: Discharge ED (Routine); Ordered 04/28/21 Ordered By: Hal Hayden Referrals: Kohli,Harjit J, DO [Primary Care Provider] - Discharge Diet: Advance as tolerated Discharge Activity: Resume usual activity Patient Instructions: Opioid Safety Coding Level of Care Code ED Transmission Superintendent for Anibalg Fwd Exam Detailed
[2021-04-28] MEDS: LORazepam 2 mg/mL INJ 1 mL 1 MG IM (08:44)
[2021-04-28 08:49] VITALS: BP 119/78; PULSE 58; O2SAT 95
[2021-04-28 09:18] VITALS: BP 123/74; PULSE 56; O2SAT 94
== END 2021-04-28 09:19 | disposition home or self-care (01) ==
PROVIDERS: Emergency Provider Emergency Medicine; PCP Electrodiagnostic Medicine
DX: F41.0 Panic disorder [episodic paroxysmal anxiety] (principal); F17.210 Nicotine dependence, cigarettes, uncomplicated
CPT/HCPCS: 96372; 99283; J2060

== ENCOUNTER 2021-07-01 17:27 | Emergency (ER) | payer SELFPAY ==
--- NOTE | 2021-07-01 | XR_ITS ---
WS: [id number] RIGHT KNEE: 3 VIEW(S) TECHNIQUE: AP, oblique(s) and lateral. HISTORY: REDNESS COMPARISON: None available. No fracture or dislocation. No joint space narrowing or osteophytes. Small suprapatellar joint effusion. There is a large amount of soft tissue edema surrounding the knee . Greatest along the anterior knee extending above and below the patella. No air. XR/XR knee RT 3V* [id number] IMPRESSION: Large amount soft tissue edema and changes likely due to cellulitis surrounding the knee.
[2021-07-01 17:35] VITALS: BP 132/76; PULSE 80; TEMP 36.4; O2SAT 96; BMI 25.7
--- NOTE | 2021-07-01 17:41 | CTR_ITS ---
PROCEDURE INFORMATION: Exam: CT Right Lower Extremity With Contrast, Knee Exam date and time: 07/01/2021 5:41 PM Age: 46 years old Clinical indication: Pain; Knee; Right; Additional info: Pain and swelling, abscess TECHNIQUE: Imaging protocol: CT of the Right lower extremity with intravenous contrast was performed. Exam focused on the knee. Radiation optimization: All CT scans at this facility use at least one of these dose optimization techniques: automated exposure control; mA and/or kV adjustment per patient size (includes targeted exams where dose is matched to clinical indication); or iterative reconstruction. Contrast material: OMNI 300; Contrast volume: 95 ml; Contrast route: INTRAVENOUS (IV); COMPARISON: No relevant prior studies available. RADIATION DOSE METRICS: Total DLP (mGy-cm): 317.24 FINDINGS: Bones/joints: Normal. No acute fracture or dislocation. Soft tissues: Subcutaneous edema and skin thickening over the prepatellar/infrapatellar spaces and lateral knee without corresponding subcutaneous fluid collection or underlying osseous erosion. CT/CT knee RT w con [id number] IMPRESSION: 1. Skin thickening and subcutaneous edema within the prepatellar/infrapatellar spaces and lateral knee. No evidence of subcutaneous abscess formation or osteomyelitis. 2. No acute osseous abnormalities of the right knee. Radiation Dose CTDIVOL = (mGy): DLP = 317.24 (mGy-cm)
--- NOTE | 2021-07-01 17:43 | W.ED.EXTPRO ---
Documented by User: Yonis Jacques DO 07/03/21 16:59 HPI - Extremity Problem General: Chief complaint: Skin/Abscess/Foreign Body Stated complaint: ABCESS ON RIGHT KNEE, GROINN PAIN Time Seen by Provider: 07/01/21 17:34 History of Present Illness: HPI Narrative: 46-year-old male comes in complaining of abscess on his right knee across the patella. Began about a week ago he was initially started on Bactrim he continued or problems. 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 He was seen by primary care today and they were changing it to doxycycline and he had spontaneous opening and drainage of the wound on the knee. He had been trying to manipulate it at home and had successfully drained some purulent material. He states when it spontaneously opened today he had pain shooting up into the right groin. MD Complaint: extremity pain and extremity swelling Onset (ago): day(s) Pain Consistency: constant Location: right, lower extremity and knee Quality: stabbing Radiation: proximal Relieving factors: rest Exacerbating factors: range of motion and palpation Associated symptoms: Deny chest pain or fever(s) Review of Systems Const: Denies: fever(s), chills, body aches, change in appetite, fatigue or malaise Card: Denies: chest pain, edema, dyspnea on exertion or orthopnea Resp: Denies: dyspnea, productive cough or non-productive cough GI: Denies: abdominal pain, nausea, vomiting, hematemesis, coffee ground emesis, diarrhea, constipation, bloating, hematochezia or melena : Denies: flank pain, dysuria, urinary frequency or urinary urgency PFSH ED PFSH: Medical History History of substance abuse Social History Smoking and tobacco status: current every day smoker cigarettes Packs smoked per day: 1 Years cigarettes smoked: 30 Quit status (tobacco): has tried quititng Number of times tried to quit tobacco: 2 Second hand smoke exposure: Yes Current gender identity: Male Physical Exam Const: ORIENTATION/CONSCIOUSNESS: Yes awake, Yes oriented to person, Yes oriented to place and Yes oriented to time HENMT: COMMON NORMALS: normocephalic, atraumatic and hearing grossly normal bilaterally HEAD & SCALP: normocephalic and atraumatic Neck/C-Spine: COMMON NORMALS: no JVD Resp: COMMON NORMALS: normal respiratory effort, No retractions, No use of accessory muscles and clear to auscultation bilaterally AUSCULTATION: clear to auscultation bilaterally Cardio: COMMON NORMALS: no JVD, regular rate, regular rhythm and No murmurs present (Cardio) RATE: regular rate RHYTHM: regular rhythm GI: COMMON NORMALS: Soft to palpation and No hepatosplenomegaly present AUSCULTATION: Yes normoactive bowel sounds PALPATION: Yes Soft to palpation, No Tenderness to palpation present (GI), No Guarding due to palpation present (GI) and Yes No hepatosplenomegaly present Extremity: NARRATIVE EXTREMITY EXAM: Moderate-sized abscess about 2 inches irregular shaped on the lateral aspect of the right patella anteriorly. There appears to be a fistulous tract no active drainage patient on initial exam would not tolerate much for palpation. There is no popliteal lymph nodes is difficult to examine and I could not really palpate any inguinal lymphadenopathy. His multiple other skin lesions most of which appear to be in various stages of healing he does have a small abscess overlying the left olecranon. No active drainage mild erythematous Neuro: SENSORIUM/ORIENTATION: Yes oriented to person, Yes oriented to place and Yes oriented to time Course Vital Signs: Vital signs: Vital Signs Temperature 97.6 F 07/01/21 17:51 Pulse Rate 76 07/01/21 19:56 Respiratory Rate 16 07/01/21 20:15 Blood Pressure 124/76 07/01/21 19:56 Pulse Oximetry 96 07/01/21 19:56 MDM - Extremity (Nontraumatic) MDM Narrative: Medical decision making narrative: Turned over to Dr. Mckeon at change of see note from diagnosis disposition Lab Data: Labs: Lab Results 07/01/21 07/01/21 07/01/21 Range/Units 18:08 18:08 18:08 WBC 9.0 (4.0-10.0) 10^3/ uL RBC 4.33 (4.1-5.3) 10^6/u L Hgb 12.8 (11.7-16.6) g/dL Hct 38.3 L (42.0-52.0) % MCV 88.5 (80-94) fL MCH 29.6 (28.0-34.0) pg MCHC 33.4 (30.0-36.0) g/dL RDW 12.1 (12.1-15.1) % Plt Count 208 (130-400) 10^3/c mm MPV 9.8 (7.4-10.4) fL Neut % (Auto) 77.6 % Lymph % (Auto) 12.0 % [place] % (Auto) 6.6 % Eos % (Auto) 3.3 % Baso % (Auto) 0.3 % Neut # (Auto) 7.00 (1.8-7.7) 10^3/u L Lymph # (Auto) 1.1 (0.8-4.8) 10^3/u L [place] # (Auto) 0.6 (0.2-0.9) 10^3/u L Eos # (Auto) 0.3 (0.0-0.8) 10^3/u L Baso # (Auto) 0.0 (0.0-0.1) 10^3/u L Nucleated RBC % (a uto) 0 % Nucleated RBCs # 0.0 /100WBC Sodium 134 L (136-145) mmol/L Potassium 4.7 (3.5-5.1) mmol/L Chloride 98 (98-107) mmol/L Carbon Dioxide 25 (22-29) mmol/L Anion Gap 15.7 (5-19) BUN 11 (6-20) mg/dL Creatinine 1.0 (0.7-1.2) mg/dL GFR Calculation 80.1 L (90-130) mL/min Glucose 96 (65-115) mg/dL Calculated Osmolal ity 277 L (285-295) mOsm/k g Lactic Acid 1.3 (0.5-2.2) mmol/L Calcium 8.8 (8.5-10.5) mg/dL Total Bilirubin 0.3 (0.15-1.2) mg/dL AST 44 H (0-40) U/L ALT 58 H (0-41) U/L Alkaline Phosphata se 75 (40-130) IU/L Total Protein 7.1 (6.6-8.7) g/dL Albumin 4.2 (3.5-5.2) g/dL Globulin 2.9 (1.3-4.6) g/dL Discharge Plan Discharge Patient Disposition: Home Clinical Impression: Abscess of skin or subcutaneous tissue Qualifiers: Site of cutaneous abscess: extremity Site of cutaneous abscess of extremity: lower extremity Laterality: right Qualified Code(s): L02.415 - Cutaneous abscess of right lower limb Condition: Stable Prescriptions: New ondansetron 4 mg tablet,disintegrating 4 mg PO Q6H PRN (Reason: nausea and vomiting) Qty: 14 RF: 0 clindamycin HCl 300 mg capsule 300 mg PO Q8H 7 Days Qty: 21 RF: 0 No Action clonazepam 0.125 mg tablet,disintegrating 0.125 mg PO BID RF: 0 methadone 10 mg/5 mL solution 15 mg PO Q4H RF: 0 dextroamphetamine-amphetamine [Adderall] 30 mg tablet 30 mg PO BID RF: 0 gabapentin 300 mg capsule 300 mg PO TID@0800,1200,1800 RF: 0 Remeron 15 mg tablet 15 mg PO BEDTIME RF: 0 Keppra 500 mg tablet 750 mg PO BID RF: 0 Discharge Orders: Discharge ED (Routine); Ordered 07/01/21 Ordered By: Demian Mckeon Referrals: Harjit Kohli DO [Primary Care Provider] - 1-3 days Discharge Diet: Advance as tolerated Discharge Activity: Resume usual activity Patient Instructions: Abscess (ED) Coding Level of Care Code ED Ornamental Ironworking Supervisor for Chg Fwd Exam Detailed Documented by User: Demian Mckeon MD 07/01/21 20:04 HPI - Extremity Problem General: Chief complaint: Skin/Abscess/Foreign Body Stated complaint: ABCESS ON RIGHT KNEE, GROINN PAIN Time Seen by Provider: 07/01/21 17:34 PFSH ED PFSH: Medical History History of substance abuse Social History Smoking and tobacco status: current every day smoker cigarettes Packs smoked per day: 1 Years cigarettes smoked: 30 Quit status (tobacco): has tried quititng Number of times tried to quit tobacco: 2 Second hand smoke exposure: Yes Current gender identity: Male Course Vital Signs: Vital signs: Vital Signs Temperature 97.6 F 07/01/21 17:51 Pulse Rate 76 07/01/21 19:56 Respiratory Rate 16 07/01/21 20:15 Blood Pressure 124/76 07/01/21 19:56 Pulse Oximetry 96 07/01/21 19:56 MDM - Extremity (Nontraumatic) MDM Narrative: Medical decision making narrative: Patient presents here with abscess to his right knee. He states it has been draining at home. CT showed no signs of severe infection. His white count here is normal he has no signs of septic joint. I strongly recommended incising the abscess and he refused in the ER. He states that he does not want incised I informed will not improve without incision and he still refused. He states he wants to try antibiotics and warm compresses. He is return if worsening. Lab Data: Labs: Lab Results 07/01/21 07/01/21 07/01/21 Range/Units 18:08 18:08 18:08 WBC 9.0 (4.0-10.0) 10^3/ uL RBC 4.33 (4.1-5.3) 10^6/u L Hgb 12.8 (11.7-16.6) g/dL Hct 38.3 L (42.0-52.0) % MCV 88.5 (80-94) fL MCH 29.6 (28.0-34.0) pg MCHC 33.4 (30.0-36.0) g/dL RDW 12.1 (12.1-15.1) % Plt Count 208 (130-400) 10^3/c mm MPV 9.8 (7.4-10.4) fL Neut % (Auto) 77.6 % Lymph % (Auto) 12.0 % [place] % (Auto) 6.6 % Eos % (Auto) 3.3 % Baso % (Auto) 0.3 % Neut # (Auto) 7.00 (1.8-7.7) 10^3/u L Lymph # (Auto) 1.1 (0.8-4.8) 10^3/u L [place] # (Auto) 0.6 (0.2-0.9) 10^3/u L Eos # (Auto) 0.3 (0.0-0.8) 10^3/u L Baso # (Auto) 0.0 (0.0-0.1) 10^3/u L Nucleated RBC % (a uto) 0 % Nucleated RBCs # 0.0 /100WBC Sodium 134 L (136-145) mmol/L Potassium 4.7 (3.5-5.1) mmol/L Chloride 98 (98-107) mmol/L Carbon Dioxide 25 (22-29) mmol/L Anion Gap 15.7 (5-19) BUN 11 (6-20) mg/dL Creatinine 1.0 (0.7-1.2) mg/dL GFR Calculation 80.1 L (90-130) mL/min Glucose 96 (65-115) mg/dL Calculated Osmolal ity 277 L (285-295) mOsm/k g Lactic Acid 1.3 (0.5-2.2) mmol/L Calcium 8.8 (8.5-10.5) mg/dL Total Bilirubin 0.3 (0.15-1.2) mg/dL AST 44 H (0-40) U/L ALT 58 H (0-41) U/L Alkaline Phosphata se 75 (40-130) IU/L Total Protein 7.1 (6.6-8.7) g/dL Albumin 4.2 (3.5-5.2) g/dL Globulin 2.9 (1.3-4.6) g/dL Imaging Data^: Other CT: Attestation: I personally reviewed and interpreted this imaging study as follows: Radiologist's impression: [address] [address] [address] Scan Report Signed Patient: Joby Jean Unit #: [id number] : 1975 Age/Sex: 46 / M ADM Date: 07/01/21 Loc: ER Room/Bed: Attending Dr: Ordering Provider/Ordering MD: Yonis Jacques DO Date of Service: 07/01/21 Procedure(s): CT knee RT w con [id number] Accession Number(s): [id number] Report Number: [id number] PROCEDURE INFORMATION: Exam: CT Right Lower Extremity With Contrast, Knee Exam date and time: 07/01/2021 5:41 PM Age: 46 years old Clinical indication: Pain; Knee; Right; Additional info: Pain and swelling, abscess TECHNIQUE: Imaging protocol: CT of the Right lower extremity with intravenous contrast was performed. Exam focused on the knee. Radiation optimization: All CT scans at this facility use at least one of these dose optimization techniques: automated exposure control; mA and/or kV adjustment per patient size (includes targeted exams where dose is matched to clinical indication); or iterative reconstruction. Contrast material: OMNI 300; Contrast volume: 95 ml; Contrast route: INTRAVENOUS (IV); COMPARISON: No relevant prior studies available. RADIATION DOSE METRICS: Total DLP (mGy-cm): 317.24 FINDINGS: Bones/joints: Normal. No acute fracture or dislocation. Soft tissues: Subcutaneous edema and skin thickening over the prepatellar/infrapatellar spaces and lateral knee without corresponding subcutaneous fluid collection or underlying osseous erosion. CT/CT knee RT w con [id number] IMPRESSION: 1. Skin thickening and subcutaneous edema within the prepatellar/infrapatellar spaces and lateral knee. No evidence of subcutaneous abscess formation or osteomyelitis. 2. No acute osseous abnormalities of the right knee. Radiation Dose CTDIVOL = (mGy): DLP = 317.24 (mGy-cm) Dictated By: Jatinder Franks DO Signed By: Jatinder Franks DO Signed Date/Time: 07/01/211925 DD/ 23 Discharge Plan Discharge Patient Disposition: Home Clinical Impression: Abscess of skin or subcutaneous tissue Qualifiers: Site of cutaneous abscess: extremity Site of cutaneous abscess of extremity: lower extremity Laterality: right Qualified Code(s): L02.415 - Cutaneous abscess of right lower limb Condition: Stable Prescriptions: New ondansetron 4 mg tablet,disintegrating 4 mg PO Q6H PRN (Reason: nausea and vomiting) Qty: 14 RF: 0 clindamycin HCl 300 mg capsule 300 mg PO Q8H 7 Days Qty: 21 RF: 0 No Action clonazepam 0.125 mg tablet,disintegrating 0.125 mg PO BID RF: 0 methadone 10 mg/5 mL solution 15 mg PO Q4H RF: 0 dextroamphetamine-amphetamine [Adderall] 30 mg tablet 30 mg PO BID RF: 0 gabapentin 300 mg capsule 300 mg PO TID@0800,1200,1800 RF: 0 Remeron 15 mg tablet 15 mg PO BEDTIME RF: 0 Keppra 500 mg tablet 750 mg PO BID RF: 0 Discharge Orders: Discharge ED (Routine); Ordered 07/01/21 Ordered By: Demian Mckeon Referrals: Harjit Kohli DO [Primary Care Provider] - 1-3 days Discharge Diet: Advance as tolerated Discharge Activity: Resume usual activity Patient Instructions: Abscess (ED) Coding Level of Care Code ED Ornamental Ironworking Supervisor for William Fwagus Exam Detailed
[2021-07-01 17:51] VITALS: BP 132/76; PULSE 80; TEMP 36.4; O2SAT 96
[2021-07-01 18:17] VITALS: RESP 24
[2021-07-01] MEDS: morphine 4 mg/mL SDV 1 mL IVP (18:17)
[2021-07-01 18:32] LABS: Basophils % 0.3 %; Eosinophils # 0.3 10^3/uL (0.0-0.8); Eosinophils % 3.3 %; Hematocrit 38.3 % (42.0-52.0); Hemoglobin 12.8 g/dL (11.7-16.6); Lymphocytes # 1.1 10^3/uL (0.8-4.8); Mean Corpuscular HGB Conc 33.4 g/dL (30.0-36.0); Mean Corpuscular Hemoglobin 29.6 pg (28.0-34.0); Mean Corpuscular Volume 88.5 fL (80-94); Mean Platelet Volume 9.8 fL (7.4-10.4); Monocytes # 0.6 10^3/uL (0.2-0.9); Monocytes % 6.6 %; Neutrophils % 77.6 %; Nucleated Red Blood Cells % 0 %; Platelet Count 208 10^3/cmm (130-400); Red Blood Count 4.33 10^6/uL (4.1-5.3); Red Cell Distribution Width 12.1 % (12.1-15.1)
[2021-07-01 19:02] LABS: Alanine Aminotransferase 58 U/L (0-41); Albumin Level 4.2 g/dL (3.5-5.2); Alkaline Phosphatase 75 IU/L (40-130); Anion Gap 15.7 (5-19); Aspartate Amino Transferase 44 U/L (0-40); Blood Urea Nitrogen 11 mg/dL (6-20); Calcium 8.8 mg/dL (8.5-10.5); Carbon Dioxide 25 mmol/L (22-29); Chloride 98 mmol/L (98-107); Globulin 2.9 g/dL (1.3-4.6); Glomerular Filtration Rate 80.1 mL/min (90-130); Glucose 96 mg/dL (65-115); Lactic Sepsis W/Reflex 1.3 mmol/L (0.5-2.2); Osmolality Calculated 277 mOsm/kg (285-295); Potassium 4.7 mmol/L (3.5-5.1); Sodium 134 mmol/L (136-145); Total Bilirubin 0.3 mg/dL (0.15-1.2); Total Protein 7.1 g/dL (6.6-8.7)
[2021-07-01 19:56] VITALS: BP 124/76; PULSE 76; RESP 18; O2SAT 96
[2021-07-01 20:15] VITALS: RESP 16
== END 2021-07-01 20:16 | disposition home or self-care (01) ==
PROVIDERS: Nurse Practitioner Family; Emergency Provider Emergency Medicine; PCP Electrodiagnostic Medicine
DX: L02.415 Cutaneous abscess of right lower limb (principal); F17.210 Nicotine dependence, cigarettes, uncomplicated
CPT/HCPCS: 73562; 73701; 80053; 83605; 85025; 87040; 96374; 99284; J2270; J2405; Q9967

== ENCOUNTER 2021-07-08 06:15 | Emergency (ER) | payer SELFPAY ==
--- NOTE | 2021-07-08 06:17 | W.ED.PSYCH ---
HPI - Psych General: Chief Complaint: Anxiety Stated Complaint: Panic Attack/Anxiety Time Seen by Provider: 07/08/21 06:15 History of Present Illness: HPI Narrative: 46-year-old male presents emergency room with acute anxiety attack. Patient has had multiple episodes in the past. He states he has been tapering his clonazepam dose he is on methadone. He presents emergency room with complaint of onset of the panic attack short at the time that he woke up at around 5 AM. He is not really taking anything for it. Began approximately 1 hour before arrival here. He denies any chest pain. He is tremulous and anxious. He was recently seen here within the last week for abscess on the right knee which is fully resolved with oral antibiotics. He denies any other illness in the interim no flulike symptoms no fever sweats or chills he denies suicidal or homicidal ideation. MD complaint: other (anxious) Onset (ago): hour(s) Duration: constant History of same: Yes Relieving factors: none Exacerbating factors: none Associated symptoms: Deny auditory hallucinations, visual hallucinations, delusions, depression, homicidal ideation, suicidal ideation or racing thoughts Treatments prior to arrival: none Review of Systems Const: Denies: fever(s), chills, body aches, change in appetite, fatigue or malaise ENMT: Denies: throat pain, ear or mastoid pain, nasal discharge or nasal congestion Card: Denies: chest pain, edema, dyspnea on exertion or orthopnea Resp: Denies: dyspnea, productive cough or non-productive cough GI: Denies: abdominal pain, nausea, vomiting, hematemesis, coffee ground emesis, diarrhea, constipation, bloating, hematochezia or melena : Denies: flank pain, dysuria, urinary frequency or urinary urgency Skin/Breast: Denies: rash or pruritus Psych: Denies: depression, visual hallucinations, auditory hallucinations, suicidal ideation or homicidal ideation [facility] ED PFSH: Medical History History of substance abuse Social History Smoking and tobacco status: current every day smoker cigarettes Packs smoked per day: 1 Years cigarettes smoked: 30 Quit status (tobacco): has tried quititng Number of times tried to quit tobacco: 2 Second hand smoke exposure: Yes Current gender identity: Male Physical Exam Const: COMMON NORMALS: no acute distress GENERAL APPEARANCE: cooperative ORIENTATION/CONSCIOUSNESS: Yes awake, Yes oriented to person, Yes oriented to place and Yes oriented to time HENMT: COMMON NORMALS: normocephalic, atraumatic and hearing grossly normal bilaterally HEAD & SCALP: normocephalic and atraumatic Neck/C-Spine: COMMON NORMALS: no JVD Resp: COMMON NORMALS: normal respiratory effort, No retractions, No use of accessory muscles and clear to auscultation bilaterally AUSCULTATION: clear to auscultation bilaterally Cardio: COMMON NORMALS: no JVD, regular rate, regular rhythm and No murmurs present (Cardio) RATE: regular rate RHYTHM: regular rhythm GI: COMMON NORMALS: Soft to palpation and No hepatosplenomegaly present AUSCULTATION: Yes normoactive bowel sounds PALPATION: Yes Soft to palpation, No Tenderness to palpation present (GI), No Guarding due to palpation present (GI) and Yes No hepatosplenomegaly present Extremity: COMMON NORMALS: normal to inspection, capillary refill normal, no clubbing, cyanosis or edema, no calf tenderness and no pedal edema Neuro: SENSORIUM/ORIENTATION: Yes oriented to person, Yes oriented to place and Yes oriented to time Psych: THOUGHT CONTENT: No delusions Skin: NARRATIVE SKIN EXAM: Multiple small eschar lesions about the legs. The previous abscess on the right prepatellar area is completely resolved no active drainage no redness no erythema Course Vital Signs: Vital signs: Vital Signs Temperature 97.7 F 07/08/21 06:20 Pulse Rate 80 07/08/21 06:20 Respiratory Rate 18 07/08/21 06:20 Blood Pressure 157/101 07/08/21 06:20 Pulse Oximetry 99 07/08/21 06:20 MDM - Psych MDM Narrative: Medical decision making narrative: Improved after p.o. Ativan. Will discharge home with hydroxyzine follow-up with the psychiatry team or his primary care doctor within the week prior. Return if has any further problems. Discharge Plan Discharge Patient Disposition: Home Clinical Impression: Panic disorder Condition: Stable Prescriptions: New hydroxyzine HCl 25 mg tablet 25 mg PO QID PRN (Reason: anxiety) Qty: 10 RF: 0 No Action clonazepam 0.125 mg tablet,disintegrating 0.125 mg PO BID RF: 0 methadone 10 mg/5 mL solution 15 mg PO Q4H RF: 0 dextroamphetamine-amphetamine [Adderall] 30 mg tablet 30 mg PO BID RF: 0 gabapentin 300 mg capsule 300 mg PO TID@0800,1200,1800 RF: 0 Remeron 15 mg tablet 15 mg PO BEDTIME RF: 0 Keppra 500 mg tablet 750 mg PO BID RF: 0 ondansetron 4 mg tablet,disintegrating 4 mg PO Q6H PRN (Reason: nausea and vomiting) Qty: 14 RF: 0 Discharge Orders: Discharge ED (Routine); Ordered 07/08/21 Ordered By: Yonis Jacques Referrals: Harjit Kohli, [Primary Care Provider] - Discharge Diet: Usual diet Discharge Activity: Resume usual activity Patient Instructions: Opioid Safety Activity Restrictions/Additional Instructions: Follow-up with psychiatry or primary care doctor within the next 5 days. Return to the emergency room if you have any further problems. Coding Level of Care Code ED Communication And Outreach Manager for William Fwagus Exam Comprehensive
[2021-07-08 06:20] VITALS: BP 157/101; PULSE 80; RESP 18; TEMP 36.5; O2SAT 99; BMI 27.1
[2021-07-08] MEDS: LORazepam 2 mg Tablet PO (06:36)
[2021-07-08 07:32] VITALS: BP 141/91; PULSE 71; O2SAT 98
== END 2021-07-08 07:34 | disposition home or self-care (01) ==
PROVIDERS: Emergency Provider Family Medicine; PCP Electrodiagnostic Medicine
DX: F41.0 Panic disorder [episodic paroxysmal anxiety] (principal); F17.210 Nicotine dependence, cigarettes, uncomplicated
CPT/HCPCS: 99283

== ENCOUNTER 2021-07-22 04:35 | Emergency (ER) | payer SELFPAY ==
[2021-07-22 04:45] VITALS: BP 143/90; PULSE 71; RESP 16; TEMP 36.7; O2SAT 96; BMI 24.3
[2021-07-22] MEDS: hyDROXYzine 25 mg Capsule 50 MG PO (05:38)
[2021-07-22 05:39] VITALS: RESP 16; TEMP 36.7; O2SAT 96
--- NOTE | 2021-07-22 07:39 | ED_ITS ---
HPI - Anxiety General: Chief Complaint: Anxiety Stated Complaint: Panick Attack Time Seen by Provider: 07/22/21 05:19 History of Present Illness: HPI narrative: 46-year-old male evidently with a history of panic disorder. He presents having panic attacks all night . He could not sleep. He has feelings of impending doom. Has racing thoughts. No significant chest pain etc. on entering the room, he is asleep resting comfortably. He notes that his symptoms seem to improve since arrival. He is on a small dose of Klonopin, which he took, with no improvement by report MD complaint: anxiety Onset (ago): hour(s) Symptoms: dyspnea, palpitations, extremity numbness/tingling and sense of impending doom Severity: similar to previous episodes Place: home History of similar episodes: Yes Provoking factors: none known Relieving factors: nothing Associated symptoms: Reports palpitations; Deny chest pain, chills, fever(s), nausea or vomiting Review of Systems Const: Denies: fever(s) or chills Card: Reports: palpitations; Denies: chest pain Resp: Reports: dyspnea; Denies: pain on inspiration GI: Denies: nausea or vomiting Neuro: Reports: numbness in extremities PFSH ED PFSH: Medical History History of substance abuse Social History Smoking and tobacco status: current every day smoker cigarettes Packs smoked per day: 1 Years cigarettes smoked: 30 Quit status (tobacco): has tried quititng Number of times tried to quit tobacco: 2 Second hand smoke exposure: Yes Current gender identity: Male Physical Exam Const: COMMON NORMALS: no acute distress Eye: COMMON NORMALS: Equal, round and reactive pupils present and EOMs intact bilaterally PUPIL: Yes Equal, round and reactive pupils present Chest: COMMONS NORMALS: normal inspection of the chest Resp: COMMON NORMALS: normal respiratory effort, No use of accessory muscles and clear to auscultation bilaterally AUSCULTATION: clear to auscultation bilaterally Cardio: COMMON NORMALS: regular rate and regular rhythm RATE: regular rate RHYTHM: regular rhythm GI: COMMON NORMALS: Normal to inspection, nondistended, normoactive bowel sounds present Course Vital Signs: Vital signs: Vital Signs Temperature 98.1 F 07/22/21 05:39 Pulse Rate 71 07/22/21 04:45 Respiratory Rate 16 07/22/21 05:39 Blood Pressure 143/90 07/22/21 04:45 Pulse Oximetry 96 07/22/21 05:39 MDM - Anxiety MDM Narrative: Medical decision making narrative: Patient still mildly anxious on awakening. Symptoms are mostly self resolved. He will be given to hydroxyzine, and asked to follow-up with his primary care provider. He maintains that he is not suicidal or homicidal. Discharge Plan Discharge Patient Disposition: Home Clinical Impression: Panic disorder Condition: Stable Prescriptions: No Action clonazepam 0.125 mg tablet,disintegrating 0.125 mg PO BID RF: 0 methadone 10 mg/5 mL solution 15 mg PO Q4H RF: 0 dextroamphetamine-amphetamine [Adderall] 30 mg tablet 30 mg PO BID RF: 0 gabapentin 300 mg capsule 300 mg PO TID@0800,1200,1800 RF: 0 Remeron 15 mg tablet 15 mg PO BEDTIME RF: 0 Keppra 500 mg tablet 750 mg PO BID RF: 0 ondansetron 4 mg tablet,disintegrating 4 mg PO Q6H PRN (Reason: nausea and vomiting) Qty: 14 RF: 0 hydroxyzine HCl 25 mg tablet 25 mg PO QID PRN (Reason: anxiety) Qty: 10 RF: 0 Discharge Orders: Discharge ED (Routine); Ordered 07/22/21 Ordered By: Gregory Palacio Referrals: Harjit Kohli DO [Referring] - 1-3 days Discharge Diet: Advance as tolerated Discharge Activity: Resume usual activity Patient Instructions: Panic Disorder (ED) Activity Restrictions/Additional Instructions: follow up with your doctor about your panic disorder. Coding Level of Care Code ED Nutrition And Dietetics Instructor for William Chadwick
== END 2021-07-22 05:40 | disposition home or self-care (01) ==
PROVIDERS: Emergency Provider Emergency Medicine
DX: F41.0 Panic disorder [episodic paroxysmal anxiety] (principal); F17.210 Nicotine dependence, cigarettes, uncomplicated
CPT/HCPCS: 99282

== ENCOUNTER 2021-09-18 01:49 | Emergency (ER) | payer SELFPAY ==
[2021-09-18 01:55] VITALS: BP 144/90; PULSE 67; RESP 20; TEMP 36.9; O2SAT 98; BMI 23.7
--- NOTE | 2021-09-18 02:33 | ED_ITS ---
HPI - Anxiety General: Chief Complaint: Anxiety Stated Complaint: Chills, withdraw Time Seen by Provider: 09/18/21 02:28 Source: patient Limitations: no limitations History of Present Illness: HPI narrative: 46-year-old male states that he is going through a program to get off Klonopin he is on a low-dose taper of Valium states he accidentally let his prescription run out he had his last 2 mg Valium earlier this morning and supposed to have a dose tonight but did not have any. He states that he just needs 1 2 mg Valium denies any other complaints at this time. Associated symptoms: Deny chest pain, chills, fever(s), headache(s), nausea or vomiting Review of Systems Const: Denies: fever(s), chills, body aches or change in appetite Eyes: Denies: blurry vision or eye discomfort ENMT: Denies: throat pain or dental pain Card: Denies: chest pain Resp: Denies: dyspnea GI: Denies: abdominal pain, nausea, vomiting or diarrhea : Denies: dysuria Musc: Denies: neck pain or back pain Skin/Breast: Denies: rash Neuro: Denies: headache(s) Psych: Reports: anxiety Festus/Lymph: Denies: easy bruising All/Imm: Denies: urticaria PFSH ED PFSH: Medical History History of substance abuse Social History Smoking and tobacco status: current every day smoker cigarettes Packs smoked per day: 1 Years cigarettes smoked: 30 Quit status (tobacco): has tried quititng Number of times tried to quit tobacco: 2 Second hand smoke exposure: Yes Current gender identity: Male Physical Exam Const: COMMON NORMALS: no acute distress, patient oriented x3 and healthy appearing HENMT: COMMON NORMALS: normocephalic and atraumatic HEAD & SCALP: normocephalic and atraumatic Eye: COMMON NORMALS: Equal, round and reactive pupils present and EOMs intact bilaterally PUPIL: Yes Equal, round and reactive pupils present Neck/C-Spine: COMMON NORMALS: full ROM and supple Chest: COMMONS NORMALS: normal inspection of the chest and normal palpation of entire chest wall Resp: COMMON NORMALS: normal respiratory effort, No retractions, No use of accessory muscles and clear to auscultation bilaterally AUSCULTATION: clear to auscultation bilaterally Cardio: COMMON NORMALS: regular rate, regular rhythm and No murmurs present (Cardio) RATE: regular rate RHYTHM: regular rhythm GI: COMMON NORMALS: Normal to inspection, nondistended, normoactive bowel sounds present, Soft to palpation, non-tender and no masses PALPATION: Yes Soft to palpation Extremity: COMMON NORMALS: normal to inspection and full ROM Neuro: COMMON NORMALS: patient oriented x3, moves all extremities and no focal motor deficits Psych: COMMON NORMALS: mental status grossly normal, Normal thought process present and cooperative THOUGHT PROCESS: Normal thought process present Skin: COMMON NORMALS: no rashes or lesions noted and no wounds GENERAL SKIN EXAM: no rashes or lesions noted Course Vital Signs: Vital signs: Vital Signs Temperature 98.4 F 09/18/21 01:55 Pulse Rate 67 09/18/21 01:55 Respiratory Rate 20 H 09/18/21 01:55 Blood Pressure 144/90 09/18/21 01:55 Pulse Oximetry 98 09/18/21 01:55 MDM - Anxiety MDM Narrative: Medical decision making narrative: Patient presents here with anxiety missed a dose of Valium of the withdrawal protocol that did give him a 2 mg Valium here he is no signs of acute withdrawal he stable for discharge he is to follow-up with his PCP and is return if worsening. Discharge Plan Discharge Patient Disposition: Home Clinical Impression: Anxiety Condition: Stable Prescriptions: No Action clonazepam 0.125 mg tablet,disintegrating 0.125 mg PO BID RF: 0 methadone 10 mg/5 mL solution 15 mg PO Q4H RF: 0 dextroamphetamine-amphetamine [Adderall] 30 mg tablet 30 mg PO BID RF: 0 gabapentin 300 mg capsule 300 mg PO TID@0800,1200,1800 RF: 0 Remeron 15 mg tablet 15 mg PO BEDTIME RF: 0 Keppra 500 mg tablet 750 mg PO BID RF: 0 ondansetron 4 mg tablet,disintegrating 4 mg PO Q6H PRN (Reason: nausea and vomiting) Qty: 14 RF: 0 hydroxyzine HCl 25 mg tablet 25 mg PO QID PRN (Reason: anxiety) Qty: 10 RF: 0 Discharge Orders: Discharge ED (Routine); Ordered 09/18/21 Ordered By: Demian Mckeon Discharge Diet: Advance as tolerated Discharge Activity: Resume usual activity Patient Instructions: Anxiety (ED) Coding Level of Care Code ED Alliance Director for Anibalg Fwd Exam Comprehensive
[2021-09-18 02:48] VITALS: BP 140/82; PULSE 66; RESP 18; O2SAT 98
== END 2021-09-18 02:49 | disposition home or self-care (01) ==
PROVIDERS: Emergency Provider Emergency Medicine
DX: F41.9 Anxiety disorder, unspecified (principal); F17.210 Nicotine dependence, cigarettes, uncomplicated
CPT/HCPCS: 99281

== ENCOUNTER 2022-09-22 09:50 | Emergency (ER) | payer MEDICAID, SELFPAY ==
[2022-09-22] VITALS (40 sets, daily range): BP systolic 128–158; BP diastolic 78–118; PULSE 60; O2SAT 99–100
--- NOTE | 2022-09-22 10:00 | XR_ITS ---
WS: [id number] Exam: XR chest 1V portable [id number] Date/Time of Exam: 09/22/2022 10:21 AM Reason For Exam: dyspnea/cough No previous exams. The lungs are clear and fully expanded. Normal cardiomediastinal silhouette. There is tortuosity of t he thoracic aorta. Bony structures are intact. XR/XR chest 1V portable [id number] IMPRESSION: 1. No acute cardiopulmonary finding.
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
--- NOTE | 2022-09-22 11:17 | ECG_ITS ---
[facility] Test Date: 2022-09-22 Pat Name: Joby Pyle Department: Room: Gender: Male Hospice Plan Administrator: : 1975 Requested By: Yonis Tanner Order Number: [id number] Rachid MD: Danya Mcmillan M.D. Measurements Intervals [place] Rate: 78 P: 70 MS: 119 QRS: 56 QRSD: 85 T: 46 QT: 414 QTc: 474 Interpretive Statements SINUS RHYTHM WITH SINUS ARRHYTHMIA WITH SHORT MS INTERVAL No previous ECG available for comparison Electronically Signed On 09-22-2022 22:54:26 CDT by Danya Mcmillan M.D. [id number]
[2022-09-22] MEDS: sodium chloride 0.9% 1,000 ML 999 ML IV ×2 (11:19→11:57)
[2022-09-22] MEDS: ondansetron 2 mg/ML SDV 2 mL 4 MG IVP (11:20)
[2022-09-22 11:32] LABS: Basophils % 0.3 %; Eosinophils # 0.1 10^3/uL (0.0-0.8); Eosinophils % 0.8 %; Hematocrit 41.9 % (42.0-52.0); Lymphocytes % 11.9 %; Mean Corpuscular HGB Conc 33.4 g/dL (30.0-36.0); Mean Corpuscular Hemoglobin 27.8 pg (28.0-34.0); Mean Corpuscular Volume 83.1 fl (80-94); Mean Platelet Volume 9.4 fL (7.4-10.4); Monocytes # 0.4 10^3/uL (0.2-0.9); Monocytes % 4.3 %; Neutrophils # 7.13 10^3/uL (1.8-7.7); Neutrophils % 82.6 %; Nucleated Red Blood Cells % 0 %; Platelet Count 307 10^3/cmm (130-400); Red Blood Count 5.04 10^6/uL (4.1-5.3); Red Cell Distribution Width 12.8 % (12.1-15.1); White Blood Count 8.6 10^3/uL (4.0-10.0)
[2022-09-22 11:49] LABS: Alanine Aminotransferase 34 U/L (0-41); Albumin Level 4.9 g/dL (3.5-5.2); Alkaline Phosphatase 93 U/L (40-130); Anion Gap 20.8 (5-19); Aspartate Amino Transferase 28 U/L (0-40); Blood Urea Nitrogen 8 mg/dL (6-20); Calcium 10.6 mg/dL (8.5-10.5); Carbon Dioxide 24 mmol/L (22-29); Chloride 96 mmol/L (98-107); Globulin 3.7 g/dL (1.3-4.6); Glomerular Filtration Rate 90.1 mL/min (90-130); Glucose 112 mg/dL (65-115); Lipase 41 U/L (13-60); Osmolality Calculated 283 mOsm/kg (285-295); Potassium 3.8 mmol/L (3.5-5.1); Sodium 137 mmol/L (136-145); Total Bilirubin 0.6 mg/dL (0.15-1.2); Total Protein 8.6 g/dL (6.6-8.7)
[2022-09-22] MEDS: haloperidol inj 5 mg/mL INJ 1 mL 2.5 MG IVP (12:25)
== END 2022-09-22 15:10 | disposition home or self-care (01) ==
PROVIDERS: Emergency Provider Family Medicine
DX: F19.10 Other psychoactive substance abuse, uncomplicated (principal); F17.210 Nicotine dependence, cigarettes, uncomplicated
CPT/HCPCS: 71045; 80053; 83690; 85025; 93005; 96361; 96374; 96375; 99284; J1630; J2405; J7030

== ENCOUNTER → 2023-02-16 12:56 | Outpatient (BNVA) | payer MEDICAID, SELFPAY | PROVIDERS: Referring Provider Electrodiagnostic Medicine; Visit Provider Specialist | DX: M16.11 Unilateral primary osteoarthritis, right hip (principal) | CPT/HCPCS: 36415; 80053; 85025; 85651; 86140; 86200; 86431; 86705; 86706; 86709; 86803; 87340; 87522 ==

== ENCOUNTER → 2023-02-16 12:59 | Outpatient (BNVA) | payer MEDICAID, SELFPAY | PROVIDERS: Referring Provider Electrodiagnostic Medicine; Visit Provider Specialist | DX: M25.851 Other specified joint disorders, right hip (principal); M25.551 Pain in right hip; M16.11 Unilateral primary osteoarthritis, right hip | CPT/HCPCS: 73502 ==

== ENCOUNTER 2023-04-01 22:11 | Emergency (ER) | payer MEDICAID, SELFPAY ==
[2023-04-01 22:15] VITALS: BP 168/81; PULSE 94; RESP 19; TEMP 36.7; O2SAT 99; BMI 26.4
--- NOTE | 2023-04-01 22:26 | W.ED.SKABFB ---
HPI - Skin/Abscess/Foreign Bdy General: Chief complaint: Skin/Abscess/Foreign Body Stated complaint: REt had Absess Time Seen by Provider: 04/01/23 22:25 History of Present Illness: 47-year-old male patient comes in today with redness and tenderness to the dorsal right hand. Patient reports he was working with a [employer] and got a thorn in the back of his hand the day before. Patient was able to remove the thorn today but since then he has had increasing redness around the area of the puncture wound. Patient reports his tetanus is up-to-date. Patient does have a history of MRSA. Patient reports no chills or fever. Associated symptoms: Deny vomiting Review of Systems General: Reports: 10 or more systems reviewed and unremarkable except in HPI and below Card: Denies: chest pain Resp: Denies: dyspnea GI: Denies: vomiting Musc: Reports: extremity pain Skin/Breast: Reports: erythema PFS ED PFSH: Medical History (Updated 04/01/23 @ 22:34 by SUSIE Corey) History of substance abuse Narcotic abuse Surgical History (System 03/06/23 @ 14:57 by Amanda Osuna) No pertinent past surgical history Social History (System 03/06/23 @ 14:57 by Amanda Osuna) Smoking and tobacco status: current every day smoker cigarettes Packs smoked per day: 1 Years cigarettes smoked: 30 Quit status (tobacco): has tried quititng Number of times tried to quit tobacco: 2 Second hand smoke exposure: Yes Alcohol intake: current Substance/Drug Use: current Substance/Drug use frequency: daily Other substance/drug use details: Fentanyl Current gender identity: Male Physical Exam Const: COMMON NORMALS: alert HENMT: COMMON NORMALS: normocephalic HEAD & SCALP: normocephalic Neck/C-Spine: COMMON NORMALS: full ROM Resp: COMMON NORMALS: normal respiratory effort Cardio: COMMON NORMALS: regular rate and regular rhythm RATE: regular rate RHYTHM: regular rhythm GI: COMMON NORMALS: non-tender : COMMON NORMALS: Yes no CVA tenderness BLADDER/KIDNEY EXAM: Yes no CVA tenderness Back/Pelvis: COMMON NORMALS: no CVA tenderness and thoracic and lumbar spine normal to inspection Extremity: COMMON NORMALS: normal to inspection Neuro: SENSORIUM/ORIENTATION: Yes alert Skin: TRAUMA: puncture (5 cm area of redness surrounding a single puncture danilo) Course Vital Signs: Vital signs: Vital Signs Temperature 98.1 F 04/01/23 22:15 Pulse Rate 85 04/01/23 22:50 Respiratory Rate 20 H 04/01/23 22:50 Blood Pressure 157/99 04/01/23 22:50 Pulse Oximetry 98 04/01/23 22:50 Oxygen Delivery Me thod Room Air 04/01/23 22:50 MDM - Skin/Abscess/Foreign Bdy Medicial Decision Making 47-year-old male patient comes in today for complaints of redness and tenderness to the right dorsal hand. Patient reports getting a splinter in his hand yesterday but was able to remove the splinter today but since then has developed increasing redness and swelling to hand. On exam minimal edema is noted. Patient does have significant erythema around a single puncture wound to the dorsal hand. Differential diagnosis includes wound infection, local reaction to sting from insect, extravasation from IV drugs. We will go ahead and cover patient with antibiotics for a wound infection. No abscess or significant swelling was noted at this time. Patient was given a gram of Rocephin x1 week continue on doxycycline for the next 10 days. Patient reported understanding of care plan and need for follow-up or return to the ER. Discharge Plan Discharge Patient Disposition: Home Clinical Impression: Puncture wound of right hand with infection Condition: Stable Prescriptions: New doxycycline monohydrate 100 mg capsule 100 mg PO BID 10 Days Qty: 20 0RF No Action methadone 10 mg/5 mL solution 15 mg PO Q4H levetiracetam [Keppra] 500 mg tablet 500 mg PO BID methylphenidate HCl 20 mg tablet 20 mg PO BID clonidine HCl 0.1 mg tablet 0.1 mg PO TID prednisone 10 mg tablet 10 mg PO TID gabapentin 300 mg capsule 300 mg PO TID@0800,1200,1800 Remeron 15 mg tablet 15 mg PO BEDTIME Keppra 500 mg tablet 750 mg PO BID ondansetron 4 mg tablet,disintegrating 4 mg PO Q6H PRN (Reason: nausea and vomiting) Qty: 14 0RF hydroxyzine HCl 25 mg tablet 25 mg PO QID PRN (Reason: anxiety) Qty: 10 0RF ondansetron HCl 4 mg tablet 4 mg PO Q6H PRN (Reason: nausea and vomiting) Qty: 10 0RF Discharge Orders: Discharge ED (Routine); Ordered 04/01/23 Ordered By: Federico Trivedi Referrals: Harjit Kohli, [Primary Care Provider] - Discharge Diet: Usual diet Discharge Activity: Increase activity as tolerated Patient Instructions: Puncture Wound (ED) Activity Restrictions/Additional Instructions: Take antibiotic doxycycline 100 mg twice a day for 10 days. Monitor site for increasing swelling and tenderness. Follow-up with primary care as needed. Return to the emergency department for worsening symptoms such as inability to hold fluids down, fever greater than 100.4, or new concerns. Coding Level of Care Code ED Hair Rooting Machine Operator for William Chadwick
[2023-04-01] MEDS: cefTRIAXone 1,000 MG in water for injection-sterile 2.1 ML 1 MG IM (22:47)
[2023-04-01] MEDS: doxycycline 100 mg Tablet PO (22:48)
[2023-04-01 22:50] VITALS: BP 157/99; PULSE 85; RESP 20; O2SAT 98
== END 2023-04-01 22:57 | disposition home or self-care (01) ==
PROVIDERS: Emergency Provider Nurse Practitioner Family; PCP Electrodiagnostic Medicine
DX: S61.431A Puncture wound without foreign body of right hand, initial encounter (principal); L08.9 Local infection of the skin and subcutaneous tissue, unspecified; W60.XXXA Contact with nonvenomous plant thorns and spines and sharp leaves, initial encounter; F17.210 Nicotine dependence, cigarettes, uncomplicated
CPT/HCPCS: 96372; 99284; J0696

== ENCOUNTER 2023-04-03 14:36 | Outpatient (CLI) | payer MEDICAID, SELFPAY ==
--- NOTE | 2023-04-03 14:30 | MR_ITS ---
WS: [id number] EXAMINATION: MR hip RT wo con* [id number] ORDER DATE: 04/03/2023 2:53 PM COMPARISON: None. HISTORY: M25.859 - Other specified joint disorders, unspecified hip CONTRAST: None. TECHNIQUE: Coronal STIR of the Pelvis. Coronal proton density, coronal T1, axial T2 fat sat, axial T1 , sagittal T2 fat sat, and sagittal T1 performed of the hip. After contrast, axial T1 fat sat, coron al T1 fat sat, and sagittal T1 fat sat were performed. 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 Osseous bump femoral head neck junction. P isol account underwriter configuration right femoral neck on recent radiograph. No significant edema in this locatio n. Associated hypertrophic changes with marginal osteophytes involving the anterior superior acetabul um. Associated chondromalacia involving the acetabulum. No significant subchondral cystic change invo lving the femoral head. Irregularity of the anterior superior RIGHT acetabular labrum. This can be fu rther evaluated with arthrogram if indicated. LEFT hip has a more normal configuration. Normal bone marrow signal in the sacrum. Small amount of ed laureen along the RIGHT sacroiliac joint likely degenerative. Recommend correlation with history of sacro iliitis. Normal visualized soft tissues. No other suspicious findings. MR/MR hip RT wo con* [id number] IMPRESSION: 1. Aspherical RIGHT femoral head with osseous bump at the head neck junction s uggestive of femoral acetabular impingement in the appropriate clinical setting . 2. Hypertrophic spurring irregularity on along the anterior superior bony acet abulum. Chondromalacia involving the RIGHT acetabulum with suspected labral tea r. This can be further evaluated with arthrogram if indicated 3. No significant edema in the RIGHT femoral head or neck. 4. Degenerative arthritis both sacroiliac joints with small amount of edema al rogelio the RIGHT inferior SI joint. 5. Otherwise normal bone marrow signal in the bony pelvis and sacrum. 6. No other acute findings.
== END 2023-04-03 14:37 | disposition home or self-care (01) ==
LOC: RAD 14:40
PROVIDERS: PCP Electrodiagnostic Medicine; Visit Provider Specialist
DX: M25.551 Pain in right hip (principal); M25.859 Other specified joint disorders, unspecified hip; M13.80 Other specified arthritis, unspecified site
CPT/HCPCS: 73721

== ENCOUNTER 2023-06-18 19:05 | Emergency (ER) | payer MEDICAID, SELFPAY ==
[2023-06-18 19:10] VITALS: BMI 24.4
[2023-06-18 19:12] VITALS: BP 150/95; PULSE 98; RESP 17; TEMP 37.2; O2SAT 97
--- NOTE | 2023-06-18 19:17 | W.ED.BACK ---
HPI - Back Pain/Injury General: Chief Complaint: Back Pain/Injury Stated Complaint: Back Pain Time Seen by Provider: 06/18/23 19:17 History of Present Illness: 48-year-old male patient comes in today with complaints of low back pain radiating to the right hip. Patient reports that he had just completed a 2-week burst of steroids for exacerbation of his chronic back and hip pain. Patient reports worsening pain since stopping the steroids yesterday. Patient would like more steroids until he can follow-up with his primary care provider, Dr. Kohli. Patient appears nontoxic. Patient appears in no acute distress. Review of Systems General: Reports: 10 or more systems reviewed and unremarkable except in HPI and below Musc: Reports: back pain and extremity pain [facility] ED PFSH: Medical History (Updated 06/18/23 @ 19:27 by SUSIE Corey) History of substance abuse Narcotic abuse Surgical History (System 03/06/23 @ 14:57 by Amanda Osuna) No pertinent past surgical history Social History (System 03/06/23 @ 14:57 by Amanda Osuna) Smoking and tobacco status: current every day smoker cigarettes Packs smoked per day: 1 Years cigarettes smoked: 30 Quit status (tobacco): has tried quititng Number of times tried to quit tobacco: 2 Second hand smoke exposure: Yes Alcohol intake: current Substance/Drug Use: current Substance/Drug use frequency: daily Other substance/drug use details: Fentanyl Current gender identity: Male Physical Exam Const: COMMON NORMALS: alert HENMT: COMMON NORMALS: normocephalic HEAD & SCALP: normocephalic Neck/C-Spine: COMMON NORMALS: full ROM Resp: COMMON NORMALS: normal respiratory effort Cardio: COMMON NORMALS: regular rate RATE: regular rate Back/Pelvis: LUMBAR SPINE/LOWER BACK: Yes lumbar spinal tenderness Lumbar spinal tenderness location: L4 and L5 and Yes paraspinal muscle tenderness Lumbar paraspinal muscle tenderness: right Extremity: COMMON NORMALS: no pedal edema Neuro: SENSORIUM/ORIENTATION: Yes alert Skin: COMMON NORMALS: turgor normal GENERAL SKIN EXAM: turgor normal Course Vital Signs: Vital signs: Vital Signs Temperature 98.9 F 06/18/23 19:12 Pulse Rate 98 06/18/23 19:12 Respiratory Rate 17 06/18/23 19:12 Blood Pressure 150/95 06/18/23 19:12 Pulse Oximetry 97 06/18/23 19:12 Oxygen Delivery Me thod Room Air 06/18/23 19:12 MDM - Back Pain/Injury Medical Decision Making 48-year-old male patient comes in today with exacerbation of low back pain radiating to the right hip and thigh. On exam patient has spinal tenderness in the L5-S1 area L4-L5 area of the low back. Patient also has muscle tenderness in the right paraspinous muscles. No significant pedal edema is noted. Patient does have some swelling to bilateral hands which he reports is chronic. Respirations are even lungs are clear to auscultation. Vital signs are normal except for some elevated blood pressure. Patient was prescribed a refill on his prednisone for 7 more days with recommendations to follow-up with primary care. Patient was also written for some ketorolac tablets for his pain. Patient reported understanding of care plan and need for follow-up or return to the ER. Discharge Plan Discharge Patient Disposition: Home Clinical Impression: Low back pain Qualifiers: Chronicity: acute Back pain laterality: unspecified Sciatica presence: with sciatica Sciatica laterality: sciatica of right side Qualified Code(s): M54.41 - Lumbago with sciatica, right side Condition: Stable Prescriptions: New prednisone 20 mg tablet 20 mg PO BID 7 Days Qty: 14 0RF ketorolac 10 mg tablet 10 mg PO Q6H PRN (Reason: pain) Qty: 12 0RF No Action methadone 10 mg/5 mL solution 15 mg PO Q4H levetiracetam [Keppra] 500 mg tablet 500 mg PO BID methylphenidate HCl 20 mg tablet 20 mg PO BID clonidine HCl 0.1 mg tablet 0.1 mg PO TID prednisone 10 mg tablet 10 mg PO TID gabapentin 300 mg capsule 300 mg PO TID@0800,1200,1800 Remeron 15 mg tablet 15 mg PO BEDTIME Keppra 500 mg tablet 750 mg PO BID ondansetron 4 mg tablet,disintegrating 4 mg PO Q6H PRN (Reason: nausea and vomiting) Qty: 14 0RF hydroxyzine HCl 25 mg tablet 25 mg PO QID PRN (Reason: anxiety) Qty: 10 0RF ondansetron HCl 4 mg tablet 4 mg PO Q6H PRN (Reason: nausea and vomiting) Qty: 10 0RF Discharge Orders: Discharge ED (Routine); Ordered 06/18/23 Ordered By: Federico Trivedi Referrals: Harjit Kohli DO [Primary Care Provider] - Discharge Diet: Usual diet Discharge Activity: Increase activity as tolerated Patient Instructions: Back Pain (ED) Activity Restrictions/Additional Instructions: Continue with routine care. Drink plenty of water with medications. Follow-up with primary care for further instructions. Return to ED for new concerns. Coding Level of Care Code ED Control Specialist for William Chadwick
[2023-06-18] MEDS: predniSONE 20 mg Tablet 40 MG PO (19:37)
[2023-06-18] MEDS: ketorolac 10 mg Tablet PO (19:37)
== END 2023-06-18 19:41 | disposition home or self-care (01) ==
PROVIDERS: Emergency Provider Nurse Practitioner Family; PCP Electrodiagnostic Medicine
DX: M54.41 Lumbago with sciatica, right side (principal); F17.210 Nicotine dependence, cigarettes, uncomplicated
CPT/HCPCS: 99283; J7512

== ENCOUNTER → 2023-07-09 09:01 | Outpatient (BNVA) | payer MEDICAID, SELFPAY | PROVIDERS: PCP Electrodiagnostic Medicine; Visit Provider Physician Assistant | DX: S32.020A Wedge compression fracture of second lumbar vertebra, initial encounter for closed fracture (principal); W18.2XXA Fall in (into) shower or empty bathtub, initial encounter | CPT/HCPCS: 72110 ==

== ENCOUNTER 2023-07-09 11:19 | Outpatient (CLI) | payer MEDICAID, SELFPAY | END 2023-07-09 11:20 | disposition home or self-care (01) | LOC: SPT 11:19 | PROVIDERS: PCP Electrodiagnostic Medicine; Visit Provider Physician Assistant | DX: Z46.89 Encounter for fitting and adjustment of other specified devices (principal); M54.59 Other low back pain | CPT/HCPCS: 97760; L0456 ==

== ENCOUNTER 2023-07-16 08:08 | Outpatient (CLI) | payer MEDICAID, SELFPAY ==
--- NOTE | 2023-07-16 08:00 | MR_ITS ---
WS: [id number] MRI LUMBAR SPINE NONCONTRAST TECHNIQUE: Sagittal T1, T2 and STIR imaging. Axial T1 and T2 imaging. CLINICAL INFORMATION: back pain FINDINGS: Mild compression superior endplate L2 is unchanged in appearance. Associated edema in the superior en dplate. In addition there is edema within the inferior endplate of L1 with T2 signal abnormality in t he disc space. Associated paravertebral soft tissue edema at the L1-2 level suspicious for discitis Correlation for infection. Mild erosion of the anterior superior cortex of L2 better appreciated on t he prior radiographs. No evidence of epidural abscess. No significant retropulsion. L1-L2: Mild annular bulging. Moderate facet arthropathy. Spinal canal and foramen are patent. L2-L3: Mild annular bulging. Mild facet arthropathy. L3-L4: Mild annular bulging. Slight narrowing of the subarticular recess bilaterally. Moderate arthro vania. Small left foraminal protrusion with mild left foraminal narrowing. L4-L5: Mild annular bulging. Mild facet arthropathy. Spinal canal and foramen are patent. L5-S1: Mild annular bulging. Mild facet arthropathy. Spinal canal and foramen are patent. IMPRESSION: 1. Mild compression of the superior plate L2 with diffuse edema extending into the L1-2 disc space. Additional edema in the inferior endplate of L1 with perivertebral soft tissue inflammation and thick ening. Findings suspicious for discitis/osteomyelitis. Recommend correlation for infection. 2. No significant retropulsion. Only mild loss of vertebral body height at L2. No epidural abscess. 3. Erosive changes involving L2 anterior superior endplate better appreciated on the prior radiograp hs.
== END 2023-07-16 08:09 | disposition home or self-care (01) ==
LOC: RAD 08:11
PROVIDERS: PCP Electrodiagnostic Medicine; Visit Provider Physician Assistant
DX: M48.062 Spinal stenosis, lumbar region with neurogenic claudication (principal); R93.7 Abnormal findings on diagnostic imaging of other parts of musculoskeletal system; R60.0 Localized edema
CPT/HCPCS: 72148

== ENCOUNTER 2023-07-27 11:51 | Outpatient (CLI) | payer MEDICAID, SELFPAY ==
[2023-07-27 12:58] LABS: Add Urine Microscopic? NO; Charge for UA Resulting for Rev
[2023-07-27 13:03] LABS: Basophils % 0.5 %; Eosinophils # 0.2 10^3/uL (0.0-0.8); Eosinophils % 2.6 %; Hematocrit 32.4 % (37-53); Lymphocytes # 1.5 10^3/uL (0.8-4.8); Lymphocytes % 17.4 %; Mean Corpuscular HGB Conc 30.2 g/dL (30-55); Mean Corpuscular Hemoglobin 24.6 pg (27-33); Mean Corpuscular Volume 81.2 fl (82-101); Mean Platelet Volume 8.7 fL (7.4-10.4); Monocytes # 0.6 10^3/uL (0.2-0.9); Monocytes % 6.8 %; Neutrophils # 6.09 10^3/uL (1.8-7.7); Neutrophils % 72.5 %; Nucleated Red Blood Cells % 0 %; Platelet Count 333 10^3/cmm (157-399); Red Blood Count 3.99 10^6/uL (3.85-5.65); Red Cell Distribution Width 13.1 % (12.1-15.1)
[2023-07-27 13:05] LABS: Blood Urine Neg (Negative); Glucose Urine UA Norm (Normal); Ketones Urine Negative (Negative); Nitrate Urine Negative (Negative); Protein Urine Neg (Negative); Urine Appearance Clear (CLEAR); Urine Color Yellow (Yellow); pH Urine 6 (5-7)
[2023-07-27 13:06] LABS: Bilirubin Urine Neg (Negative); Leukocyte Esterase Urine Negative (Negative); Urobilinogen Urine Norm (Negative)
[2023-07-27 13:13] LABS: Erythrocyte Sedimentation Rate 48 mm/hr (0-10)
[2023-07-27 13:22] LABS: Alanine Aminotransferase 18 U/L (0-41); Albumin Level 3.4 g/dL (3.5-5.2); Alkaline Phosphatase 76 U/L (40-130); Anion Gap 10.5 (5-19); Aspartate Amino Transferase 25 U/L (0-40); Blood Urea Nitrogen 7 mg/dL (6-20); Calcium 8.4 mg/dL (8.5-10.5); Carbon Dioxide 31 mmol/L (22-29); Chloride 94 mmol/L (98-107); Globulin 4.1 g/dL (1.3-4.6); Glomerular Filtration Rate 119.9 mL/min (90-130); Glucose 99 mg/dL (65-115); Osmolality Calculated 272 mOsm/kg (285-295); Potassium 3.5 mmol/L (3.5-5.1); Sodium 132 mmol/L (136-145); Total Bilirubin 0.3 mg/dL (0.15-1.2); Total Protein 7.5 g/dL (6.6-8.7)
== END 2023-07-27 11:52 | disposition home or self-care (01) ==
LOC: LAB 11:52
PROVIDERS: PCP Electrodiagnostic Medicine; Visit Provider Orthopaedic Surgery
DX: S32.020A Wedge compression fracture of second lumbar vertebra, initial encounter for closed fracture (principal); X58.XXXA Exposure to other specified factors, initial encounter
CPT/HCPCS: 36415; 80053; 81003; 85025; 85651

== ENCOUNTER 2023-08-03 06:43 | Inpatient (IN) | payer MEDICAID, SELFPAY ==
[2023-08-03] VITALS (12 sets, daily range): BP systolic 137–162; BP diastolic 83–101; PULSE 62–80; RESP 16–22; TEMP 36.5–36.9; O2SAT 91–96; BMI 24.4
--- NOTE | 2023-08-03 07:08 | W.ED.BACK ---
HPI - Back Pain/Injury General: Chief Complaint: Back Pain/Injury Stated Complaint: Lower back pain Time Seen by Provider: 08/03/23 06:48 Source: patient Mode of arrival: EMS History of Present Illness: 48-year-old male presents emergency room with complaint of back pain. He initially fell 2 months ago he has been seen by orthopedic spine surgery had an MRI done on 817 he had lumbar x-rays done at 726 and 810 all of these reports were reviewed today. The MRI of the concern was raised for discitis osteomyelitis, with similar comments on the plain films done prior. His pain has been accelerating. He has a difficult time getting up or getting around due to pain. Patient admits to history of IV drug use he states he spent cleaning the last saluretic via. He did use methamphetamines prior to that. He recently had a cellulitis for which she was treated with doxycycline and then clindamycin he just recently completed the course of clindamycin for cellulitis was on his ankles he had gotten it while working in a garden with [employer] and got scratched and poked by the thorns. He has not recently had any fever sweats or chills he denies any urinary retention or fecal incontinence. He is on methadone. He is also on prednisone. Reviewing old records noted that he had a hemoglobin done prior leukocyte preoperative labs needed his hemoglobin was down to 9.8 with an MCV of 81 on July 07, 2020, on 02/16/23 his hemoglobin was 14 7, MCV at that time in the preceding were normal. MD elicited complaint: back pain and back injury Onset (ago): month(s) (2) Timing: constant Severity: severe Similar Symptoms Previously: Yes Quality: sharp Location: lumbar spine Radiation: right upper leg and right leg below the knee Exacerbating factors: movement, sitting upright and walking Relieving factors: supine Context: fall Associated symptoms: Deny abdominal pain, arthralgias, chills, change in bowel habits, difficulty walking, dysuria, fatigue, fecal incontinence, fever(s), hematuria, myalgias, nausea, numbness, syncope, tingling/numbness/burning, urinary frequency, urinary urgency, vomiting or weakness Review of Systems Const: Denies: fever(s), chills, fatigue or malaise ENMT: Denies: throat pain, ear or mastoid pain, nasal discharge or nasal congestion Card: Denies: chest pain, palpitations, irregular heart rhythm or syncope Resp: Denies: dyspnea, productive cough or non-productive cough GI: Denies: abdominal pain, nausea, vomiting, fecal incontinence or change in bowel habits : Denies: flank pain, difficulty urinating, dysuria, urinary frequency, urinary urgency or hematuria Musc: Reports: back pain and extremity pain Skin/Breast: Denies: rash or pruritus Neuro: Denies: difficulty walking PFSH ED PFSH: Medical History History of substance abuse Narcotic abuse Surgical History No pertinent past surgical history Social History Smoking and tobacco status: current every day smoker cigarettes Packs smoked per day: 1 Years cigarettes smoked: 30 Quit status (tobacco): has tried quititng Number of times tried to quit tobacco: 2 Second hand smoke exposure: Yes Alcohol intake: current Substance/Drug Use: current Substance/Drug use frequency: daily Other substance/drug use details: Fentanyl Current gender identity: Male Physical Exam Const: GENERAL APPEARANCE: cooperative ORIENTATION/CONSCIOUSNESS: Yes awake, Yes oriented to person, Yes oriented to place and Yes oriented to time HENMT: COMMON NORMALS: normocephalic, atraumatic and hearing grossly normal bilaterally HEAD & SCALP: normocephalic and atraumatic Resp: COMMON NORMALS: normal respiratory effort, No retractions, No use of accessory muscles and clear to auscultation bilaterally AUSCULTATION: clear to auscultation bilaterally Cardio: COMMON NORMALS: regular rate, regular rhythm and No murmurs present (Cardio) RATE: regular rate RHYTHM: regular rhythm GI: COMMON NORMALS: Soft to palpation and No hepatosplenomegaly present AUSCULTATION: Yes normoactive bowel sounds PALPATION: Yes Soft to palpation, No Tenderness to palpation present (GI), No Guarding due to palpation present (GI) and Yes No hepatosplenomegaly present Back/Pelvis: LUMBAR SPINE/LOWER BACK: Yes pain with ROM, Yes lumbar spinal tenderness and Yes straight leg raise positive right OTHER: Deep tendon reflexes plus 1 out of 4 in the lower extremities Extremity: COMMON NORMALS: normal to inspection, capillary refill normal, no clubbing, cyanosis or edema, no calf tenderness and no pedal edema Neuro: SENSORIUM/ORIENTATION: Yes oriented to person, Yes oriented to place and Yes oriented to time Skin: COMMON NORMALS: no rashes or lesions noted GENERAL SKIN EXAM: no rashes or lesions noted Course Vital Signs: Vital signs: Vital Signs Temperature 98.4 F 08/03/23 06:43 Pulse Rate 72 08/03/23 10:44 Respiratory Rate 22 H 08/03/23 10:44 Blood Pressure 146/94 08/03/23 10:44 Pulse Oximetry 93 08/03/23 10:44 Oxygen Delivery Me thod Room Air 08/03/23 10:44 MDM - Back Pain/Injury Medical Decision Making Patient states he is allergy to contrast dye. It was 20 years ago he thinks it may have been the dye used with Hives at that time but no difficulty breathing. Recommend that given the previous imaging findings and potential seriousness of the infection if it is present that he go ahead and be premedicated prior to procedure with Benadryl and Solu-Medrol. His white count is elevated his CRP and sed rate are elevated I suspect he may have this subclinical infection its been partially treated with the oral antibiotics as despite this his pain is worsening and timeframe I would have expected that compression would have healed by now after discussions of the risk benefits patient consents to proceeding with MRI with contrast with Solu-Medrol. No difficulty with IV contrast patient reevaluated after the MRI not developed MRI does show osteomyelitis. Dr. Lopez is not on-call but I was able to contact him he has agreed to see the patient. Will admit to hospitalist Dr. Kapoor will see the patient Dr. Jarvis will consult. Dr. Kapoor has asked that we hold the vancomycin until she has septic mucous patient. Sitter waiting until we are able to get a biopsy from the rectal area for culture. Medical Records I reviewed the patient's medical records. Labs I reviewed the patient's lab results. 08/03/23 07:09 08/03/23 07:09 Radiology Impressions Lumbar Spine MRI 08/03/23 07:47 IMPRESSION: Progression of L1-L2 discitis osteomyelitis, developing endplate irregularity increasing marrow edema and enhancement. Concentric epidural enhancement and perhaps tiny pockets of epidural fluid causing local canal narrowing. ADDENDUM: 08/03/23 0956 THIS REPORT CONTAINS FINDINGS THAT MAY BE CRITICAL TO PATIENT CARE. The findings were verbally communicated via telephone conference with YONIS JACQUES at 9:54 AM CDT on 08/03/2023. The findings were acknowledged and understood. Laboratory Results WBC 13.47 10^3/uL (3.29-11.43) H 08/03/23 07:09 RBC 4.73 10^6/uL (3.85-5.65) 08/03/23 07:09 Hgb 11.40 g/dL (11.27-16.99) 08/03/23 07:09 Hct 37.7 % (37-53) 08/03/23 07:09 MCV 79.7 fl (82-101) L 08/03/23 07:09 MCH 24.1 pg (27-33) L 08/03/23 07:09 MCHC 30.2 g/dL (30-55) 08/03/23 07:09 RDW 13.1 % (12.1-15.1) 08/03/23 07:09 Plt Count 348 10^3/cmm (157-399) 08/03/23 07:09 MPV 9.2 fL (7.4-10.4) 08/03/23 07:09 Neut % (Auto) 83.8 % 08/03/23 07:09 Lymph % (Auto) 8.7 % 08/03/23 07:09 [place] % (Auto) 5.8 % 08/03/23 07:09 Eos % (Auto) 1.1 % 08/03/23 07:09 Baso % (Auto) 0.4 % 08/03/23 07:09 Neut # (Auto) 11.29 10^3/uL (1.8-7.7) H 08/03/23 07:09 Lymph # (Auto) 1.2 10^3/uL (0.8-4.8) 08/03/23 07:09 [place] # (Auto) 0.8 10^3/uL (0.2-0.9) 08/03/23 07:09 Eos # (Auto) 0.2 10^3/uL (0.0-0.8) 08/03/23 07:09 Baso # (Auto) 0.1 10^3/uL (0.0-0.1) 08/03/23 07:09 Nucleated RBC % (auto) 0 % 08/03/23 07:09 Nucleated RBCs # 0.0 /100WBC 08/03/23 07:09 ESR 52 mm/hr (0-10) H 08/03/23 07:09 Sodium 130 mmol/L (136-145) L 08/03/23 07:09 Potassium 4.3 mmol/L (3.5-5.1) 08/03/23 07:09 Chloride 94 mmol/L (98-107) L 08/03/23 07:09 Carbon Dioxide 25 mmol/L (22-29) 08/03/23 07:09 Anion Gap 15.3 (5-19) 08/03/23 07:09 BUN 9 mg/dL (6-20) 08/03/23 07:09 Creatinine 0.7 mg/dL (0.7-1.2) 08/03/23 07:09 GFR Calculation 119.9 mL/min (90-130) 08/03/23 07:09 Glucose 108 mg/dL (65-115) 08/03/23 07:09 Calculated Osmolality 269 mOsm/kg (285-295) L 08/03/23 07:09 Lactic Acid 1.1 mmol/L (0.5-2.2) 08/03/23 07:09 Calcium 8.9 mg/dL (8.5-10.5) 08/03/23 07:09 Total Bilirubin 0.3 mg/dL (0.15-1.2) 08/03/23 07:09 AST 21 U/L (0-40) 08/03/23 07:09 ALT 20 U/L (0-41) 08/03/23 07:09 Alkaline Phosphatase 91 U/L (40-130) 08/03/23 07:09 C-Reactive Protein 14.3 mg/L (0.0-4.9) H 08/03/23 07:09 Total Protein 7.4 g/dL (6.6-8.7) 08/03/23 07:09 Albumin 3.5 g/dL (3.5-5.2) 08/03/23 07:09 Globulin 3.9 g/dL (1.3-4.6) 08/03/23 07:09 Urine Color Straw (Yellow) 08/03/23 08:30 Urine Appearance Clear (CLEAR) 08/03/23 08:30 Urine pH 9 (5-7) H 08/03/23 08:30 Ur Specific [place] 1.010 (1.005-1.030) 08/03/23 08:30 Urine Protein Neg (Negative) 08/03/23 08:30 Urine Glucose (UA) Norm (Normal) 08/03/23 08:30 Urine Ketones Negative (Negative) 08/03/23 08:30 Urine Blood Neg (Negative) 08/03/23 08:30 Urine Nitrate Negative (Negative) 08/03/23 08:30 Urine Bilirubin Neg (Negative) 08/03/23 08:30 Prot Sulfosalicylic Acd Negative (Negative) 08/03/23 08:30 Urine Urobilinogen Norm mg/dL (Negative) 08/03/23 08:30 Ur Leukocyte Esterase Negative (Negative) 08/03/23 08:30 Urine Opiates Screen Positive ng/mL (Negative) H 08/03/23 08:30 Ur Barbiturates Screen Negative ng/mL (Negative) 08/03/23 08:30 Ur Phencyclidine Scrn Negative ng/mL (Negative) 08/03/23 08:30 Ur Amphetamines Screen Negative ng/mL (Negative) 08/03/23 08:30 U Benzodiazepines Scrn Negative ng/mL (Negative) 08/03/23 08:30 Urine Cocaine Screen Negative ng/mL (Negative) 08/03/23 08:30 U Marijuana (THC) Screen Positive ng/mL (Negative) H 08/03/23 08:30 Discharge Plan Discharge Patient Disposition: Admitted As Inpatient Clinical Impression: Acute osteomyelitis of lumbar spine Condition: Stable Coding Level of Care Code ED Forest Fire Management Officer for William Chadwick
[2023-08-03 07:34] LABS: Basophils # 0.1 10^3/uL (0.0-0.1); Basophils % 0.4 %; Eosinophils # 0.2 10^3/uL (0.0-0.8); Eosinophils % 1.1 %; Hematocrit 37.7 % (37-53); Lymphocytes # 1.2 10^3/uL (0.8-4.8); Lymphocytes % 8.7 %; Mean Corpuscular HGB Conc 30.2 g/dL (30-55); Mean Corpuscular Hemoglobin 24.1 pg (27-33); Mean Corpuscular Volume 79.7 fl (82-101); Mean Platelet Volume 9.2 fL (7.4-10.4); Monocytes # 0.8 10^3/uL (0.2-0.9); Monocytes % 5.8 %; Neutrophils # 11.29 10^3/uL (1.8-7.7); Neutrophils % 83.8 %; Nucleated Red Blood Cells % 0 %; Platelet Count 348 10^3/cmm (157-399); Red Blood Count 4.73 10^6/uL (3.85-5.65); Red Cell Distribution Width 13.1 % (12.1-15.1); White Blood Count 13.47 10^3/uL (3.29-11.43)
[2023-08-03] MEDS: morphine 4 mg/mL SDV 1 mL IVP ×3 (07:34→17:35)
[2023-08-03] MEDS: ondansetron 2 mg/ML SDV 2 mL 4 MG IVP (07:34)
--- NOTE | 2023-08-03 07:40 | ECG_ITS ---
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 Measurements Intervals [place] Rate: 68 P: 55 OR: 156 QRS: 0 QRSD: 74 T: 34 QT: 395 QTc: 420 Interpretive Statements SINUS RHYTHM No previous ECG available for comparison Electronically Signed On 08-03-2023 22:30:25 CDT by Wei Wayne M.D. [email or web address]
--- NOTE | 2023-08-03 07:47 | MRR_ITS ---
PROCEDURE INFORMATION: Exam: MR Lumbar Spine Without and With Contrast Exam date and time: 08/03/2023 8:46 AM Age: 48 years old Clinical indication: Low back pain; Patient HX: Osteomyelitis L spine on previous mri, worsening back pain TECHNIQUE: Imaging protocol: Magnetic resonance imaging of the lumbar spine without and with contrast. Contrast material: MULTIHANCE; Contrast volume: 18 ml; Contrast route: INTRAVENOUS (IV); COMPARISON: MR lumbar spine wo con* [id number] 07/16/2023 8:40 AM FINDINGS: Bones/joints: There is increasing edema noted within the L1 and L2 vertebral bodies and developing endplate irregularity surrounding the enhancing disc space compatible with the given history of discitis osteomyelitis. There is concentric epidural enhancement within the canal surrounding the thecal sac at this level causing moderate stenosis with trace fluid behind the L2 vertebral body. Spinal cord: Visualized cord, conus medullaris and cauda equina are unremarkable without compression. L1-L2: At L1-L2 there is moderate canal narrowing with crowding of the nerve roots and moderate neural foraminal narrowing. L2-L3: At L2-L3 there is no significant canal narrowing and [id number] neural foraminal narrowing. L3-L4: At L3-L4 there is a broad-based disc bulge with facet arthropathy. There is flzw-jd-vldppzel canal narrowing and moderate neural foraminal narrowing. L4-L5: L4-L5 there is disc bulging with facet arthropathy. There is mild canal narrowing and euyz-he-euwctfma neural foraminal stenosis. L5-S1: At L5-S1 there is no significant canal narrowing and mild neural foraminal stenosis. Soft tissues: There is symmetric enhancing paraspinal soft tissue at the L1-L2 level extending into the upper psoas muscles as well as anteriorly into the retroperitoneum interdigitating between the aorta and inferior vena cava. Other findings: The study is degraded by motion artifact. MR/MR lumbar spine wo/w con [id number] IMPRESSION: Progression of L1-L2 discitis osteomyelitis, developing endplate irregularity increasing marrow edema and enhancement. Concentric epidural enhancement and perhaps tiny pockets of epidural fluid causing local canal narrowing.
[2023-08-03 08:04] LABS: Alanine Aminotransferase 20 U/L (0-41); Albumin Level 3.5 g/dL (3.5-5.2); Alkaline Phosphatase 91 U/L (40-130); Anion Gap 15.3 (5-19); Aspartate Amino Transferase 21 U/L (0-40); Blood Urea Nitrogen 9 mg/dL (6-20); C Reactive Protein 14.3 mg/L (0.0-4.9); Calcium 8.9 mg/dL (8.5-10.5); Carbon Dioxide 25 mmol/L (22-29); Chloride 94 mmol/L (98-107); Erythrocyte Sedimentation Rate 52 mm/hr (0-10); Globulin 3.9 g/dL (1.3-4.6); Glomerular Filtration Rate 119.9 mL/min (90-130); Glucose 108 mg/dL (65-115); Lactic Sepsis W/Reflex 1.1 mmol/L (0.5-2.2); Osmolality Calculated 269 mOsm/kg (285-295); Potassium 4.3 mmol/L (3.5-5.1); Sodium 130 mmol/L (136-145); Total Bilirubin 0.3 mg/dL (0.15-1.2); Total Protein 7.4 g/dL (6.6-8.7)
[2023-08-03] MEDS: morphine 4 mg/mL SDV 1 mL 8 MG IVP (08:09)
[2023-08-03] MEDS: methylPREDNISolone sod succ 40 MG in water for injection-sterile 1 ML 12 MG IVP (08:21)
[2023-08-03] MEDS: diphenhydrAMINE 50 mg/mL SDV 1mL IVP (08:21)
[2023-08-03 08:41] LABS: Add Urine Microscopic? NO; Charge for UA Resulting for Rev
[2023-08-03 08:44] LABS: Bilirubin Urine Neg (Negative); Blood Urine Neg (Negative); Glucose Urine UA Norm (Normal); Ketones Urine Negative (Negative); Leukocyte Esterase Urine Negative (Negative); Nitrate Urine Negative (Negative); Protein Urine Neg (Negative); Sulfosalicylic Acid Urine Negative (Negative); Urine Appearance Clear (CLEAR); Urine Color Straw (Yellow); Urobilinogen Urine Norm (Negative); pH Urine 9 (5-7)
[2023-08-03 08:52] LABS: Amphetamines Screen Urine Negative (Negative); Barbiturates Screen Urine Negative (Negative); Benzodiazepines Screen Urine Negative (Negative); Cocaine Screen Urine Negative (Negative); Opiate Screen Urine Positive (Negative); PCP Screen Urine Negative (Negative); THC Screen Urine Positive (Negative)
[2023-08-03] MEDS: gadobenate dimeglumine 20 mL vial IV (09:43)
[2023-08-03] MEDS: vancomycin 1,000 MG in sodium chloride 0.9% 250 ML 250 MG IV (10:12)
[2023-08-03] MEDS: sodium chloride 0.9% 1,000 ML 100 ML IV ×2 (12:33→21:54)
--- NOTE | 2023-08-03 15:32 | PC.NURSE ---
This nurse went to administer medications clonidine and gabapentin to patient. Patient stated I took those meds about an hour ago this nurse clarified with patient that he took his own medication brought from home. Patient stated Yeah they're already down the [place] . This educated patient that he is not to be taking his own medication while in the hospital unless approved by the MD. This nurse tired to notify MD. MD disregarded the question and referred this nurse to the charge nurse to discuss situation. This nurse and the charge nurse came to the conclusion to hold the scheduled 1500 gabapentin and clonidine. No further concerns at this time.
--- NOTE | 2023-08-03 15:41 | P.HP_ITS ---
Providers/Chief Complaint Admitting Physician: Jordan Wilder MD Primary Care Provider: Harjit Kohli DO Chief Complaint: Lower back pain History of Present Illness Joby Jean is a 48 year old male with a past medical history of hepatitis C, history of IV drug use, presenting to the hospital today due to worsening back pain. It appears that patient was recently diagnosed with suspicion for discitis/osteomyelitis of the lumbar spine as an outpatient and was planning to undergo bone biopsy/cultures with Dr. Lopez, however he presented to the hospital due to interim worsening of the pain. Denies any fever or chills recently. He has been on outpatient treatment with doxycycline and then clindamycin after he developed some sores over his right foot which she states he got after getting into a raspberry [place] and being triggered by thorns. This appears to be now resolved. No streaking cellulitis or lymphangitis per patient description. No animal bites. He has received a dose of vancomycin since coming to the emergency room. Further antibiotics are being held for now per ID recommendations. He denies any urinary or bowel incontinence at this present time. His chief complaint is back pain. Patient is currently in a methadone program and takes 40 mg p.o. every day. Review of Systems General: Reports: 10 or more systems reviewed and unremarkable except in HPI and below Const: Denies: fever(s), chills, body aches, change in appetite, change in weight, malaise, night sweats, diaphoresis, change in sleep pattern, daytime sleepiness or snoring Eyes: Denies: change in vision, blurry vision, photophobia, eye discomfort or eye discharge ENMT: Denies: throat pain, enlarged tonsils, hoarseness, mouth pain, oral sores, dry mouth, tinnitus, nasal congestion or post nasal drip Card: Denies: chest pain, palpitations, irregular heart rhythm, edema, swelling of feet/ankles, lightheadedness, syncope, pre-syncope, dyspnea on exertion, orthopnea, leg pain with exertion or acrocyanosis Resp: Denies: dyspnea, productive cough, non-productive cough, wheezing, stridor, pain on inspiration, change in phlegm color, hemoptysis or chest con gestion GI: Denies: abdominal pain, nausea, vomiting, hematemesis, coffee ground emesis, dysphagia, heartburn, diarrhea, constipation, bloating, GI cramping, change in bowel habits, pain on defecation, hematochezia or melena : Denies: flank pain, difficulty urinating, dysuria, urinary frequency, urinary urgency, urinary hesitancy, urinary dribbling, difficulty starting urination, change in urine stream, nocturia or hematuria Musc: Denies: neck pain, back pain, extremity pain, joint pain, joint swelling, joint redness, joint stiffness or limited range of motion Neuro: Denies: headache(s), numbness in extremities, weakness in extremities, sensory changes, lack of coordination, difficulty walking, frequent falls, dizziness, vertigo, confusion, Slurred speech present, difficulty communicating thoughts or seizure-like activity Psych: Denies: anxiety, depression, mood swings, panic attacks, hopelessness or irritability Endo: Denies: polyuria, polydipsia, tired all the time, cold intolerance, excessive sweating, flushing or heat intolerance Festus/Lymph: Denies: easy bruising or easy bleeding All/Imm: Denies: tongue swelling, facial swelling or acute wheezing Medications/Allergies Home Medications Medication Instructions Recorded Confirmed Last Taken Type clonidine HCl 0.1 mg tablet 0.1 mg PO TID 02/16/23 08/03/23 08/03/23 History gabapentin 300 mg capsule 300 mg PO TID 06/29/23 08/03/23 08/03/23 History TLSO IDALIACE #1 ea 07/09/23 08/03/23 Unknown Rx clindamycin HCl 300 mg capsule 300 mg PO TID 08/03/23 08/03/23 08/02/23 History cyclobenzaprine 10 mg tablet 10 mg PO TID PRN Muscle Spasm 08/03/23 08/03/23 Unknown History levetiracetam 500 mg tablet 250 mg PO BID 08/03/23 08/03/23 08/03/23 History methadone 40 mg soluble tablet 40 mg PO QAM 08/03/23 08/03/23 08/03/23 History methylphenidate HCl 20 mg tablet 20 mg PO BID 08/03/23 08/03/23 08/03/23 History Allergies Allergy/AdvReac Type Severity Reaction Status Date / Time haldol Allergy Severe ADR-Anxiety Uncoded 08/03/23 06:47 contrast dye Allergy Mild ADR-Itching Uncoded 08/03/23 06:47 PFSH Acute PFSH: Medical History History of substance abuse Narcotic abuse Surgical History No pertinent past surgical history Social History Smoking and tobacco status: current every day smoker cigarettes Packs smoked per day: 1 Years cigarettes smoked: 30 Quit status (tobacco): has tried quititng Number of times tried to quit tobacco: 2 Second hand smoke exposure: Yes Alcohol intake: current Substance/Drug Use: current Substance/Drug use frequency: daily Other substance/drug use details: Fentanyl Current gender identity: Male Vitals/I&O/Wt Last Vital Signs Temp 97.7 F 08/03/23 14:48 Pulse 72 08/03/23 14:48 Resp 22 H 08/03/23 14:48 BP 155/94 08/03/23 14:48 Pulse Ox 93 08/03/23 14:48 O2 Del Method Room Air 08/03/23 14:48 08/03/23 08/03/23 08/03/23 06:59 14:59 22:59 Intake Total 251 / 251 Balance 251 / 251 Weight last 48 hrs Weight 81.647 kg Physical Exam Narrative: EXAM NARRATIVE: General: No acute distress, AO x3 HEENT: PERRLA, pupils bilaterally equal and reactive Chest: equal good air entry bilaterally, no more fine basal crackles CVS: S1-S2 regular, no murmurs, no tachycardia, no gallops, no rubs Abdomen: Soft, nontender, no organomegaly, bowel sounds present, morbidly obese Neuro: No focal deficits, no facial deformity, AO x3, power 5/5 in all limbs Data 08/03/23 07:09 08/03/23 07:09 Micro: Microbiology 08/03/23 07:18 Blood Culture - Preliminary Blood SPECIMEN COLLECTED 08/03/23 07:09 Blood Culture - Preliminary Blood SPECIMEN COLLECTED Other data: Radiology Impressions Lumbar Spine MRI 08/03/23 07:47 IMPRESSION: Progression of L1-L2 discitis osteomyelitis, developing endplate irregularity increasing marrow edema and enhancement. Concentric epidural enhancement and perhaps tiny pockets of epidural fluid causing local canal narrowing. ADDENDUM: 08/03/23 0956 THIS REPORT CONTAINS FINDINGS THAT MAY BE CRITICAL TO PATIENT CARE. The findings were verbally communicated via telephone conference with ANANDA HENDRICKS at 9:54 AM CDT on 08/03/2023. The findings were acknowledged and understood. Laboratory Results WBC 13.47 10^3/uL (3.29-11.43) H 08/03/23 07:09 RBC 4.73 10^6/uL (3.85-5.65) 08/03/23 07:09 Hgb 11.40 g/dL (11.27-16.99) 08/03/23 07:09 Hct 37.7 % (37-53) 08/03/23 07:09 MCV 79.7 fl (82-101) L 08/03/23 07:09 MCH 24.1 pg (27-33) L 08/03/23 07:09 MCHC 30.2 g/dL (30-55) 08/03/23 07:09 RDW 13.1 % (12.1-15.1) 08/03/23 07:09 Plt Count 348 10^3/cmm (157-399) 08/03/23 07:09 MPV 9.2 fL (7.4-10.4) 08/03/23 07:09 Neut % (Auto) 83.8 % 08/03/23 07:09 Lymph % (Auto) 8.7 % 08/03/23 07:09 [place] % (Auto) 5.8 % 08/03/23 07:09 Eos % (Auto) 1.1 % 08/03/23 07:09 Baso % (Auto) 0.4 % 08/03/23 07:09 Neut # (Auto) 11.29 10^3/uL (1.8-7.7) H 08/03/23 07:09 Lymph # (Auto) 1.2 10^3/uL (0.8-4.8) 08/03/23 07:09 [place] # (Auto) 0.8 10^3/uL (0.2-0.9) 08/03/23 07:09 Eos # (Auto) 0.2 10^3/uL (0.0-0.8) 08/03/23 07:09 Baso # (Auto) 0.1 10^3/uL (0.0-0.1) 08/03/23 07:09 Nucleated RBC % (auto) 0 % 08/03/23 07:09 Nucleated RBCs # 0.0 /100WBC 08/03/23 07:09 ESR 52 mm/hr (0-10) H 08/03/23 07:09 Sodium 130 mmol/L (136-145) L 08/03/23 07:09 Potassium 4.3 mmol/L (3.5-5.1) 08/03/23 07:09 Chloride 94 mmol/L (98-107) L 08/03/23 07:09 Carbon Dioxide 25 mmol/L (22-29) 08/03/23 07:09 Anion Gap 15.3 (5-19) 08/03/23 07:09 BUN 9 mg/dL (6-20) 08/03/23 07:09 Creatinine 0.7 mg/dL (0.7-1.2) 08/03/23 07:09 GFR Calculation 119.9 mL/min (90-130) 08/03/23 07:09 Glucose 108 mg/dL (65-115) 08/03/23 07:09 Calculated Osmolality 269 mOsm/kg (285-295) L 08/03/23 07:09 Lactic Acid 1.1 mmol/L (0.5-2.2) 08/03/23 07:09 Calcium 8.9 mg/dL (8.5-10.5) 08/03/23 07:09 Total Bilirubin 0.3 mg/dL (0.15-1.2) 08/03/23 07:09 AST 21 U/L (0-40) 08/03/23 07:09 ALT 20 U/L (0-41) 08/03/23 07:09 Alkaline Phosphatase 91 U/L (40-130) 08/03/23 07:09 C-Reactive Protein 14.3 mg/L (0.0-4.9) H 08/03/23 07:09 Total Protein 7.4 g/dL (6.6-8.7) 08/03/23 07:09 Albumin 3.5 g/dL (3.5-5.2) 08/03/23 07:09 Globulin 3.9 g/dL (1.3-4.6) 08/03/23 07:09 Urine Color Straw (Yellow) 08/03/23 08:30 Urine Appearance Clear (CLEAR) 08/03/23 08:30 Urine pH 9 (5-7) H 08/03/23 08:30 Ur Specific [place] 1.010 (1.005-1.030) 08/03/23 08:30 Urine Protein Neg (Negative) 08/03/23 08:30 Urine Glucose (UA) Norm (Normal) 08/03/23 08:30 Urine Ketones Negative (Negative) 08/03/23 08:30 Urine Blood Neg (Negative) 08/03/23 08:30 Urine Nitrate Negative (Negative) 08/03/23 08:30 Urine Bilirubin Neg (Negative) 08/03/23 08:30 Prot Sulfosalicylic Acd Negative (Negative) 08/03/23 08:30 Urine Urobilinogen Norm mg/dL (Negative) 08/03/23 08:30 Ur Leukocyte Esterase Negative (Negative) 08/03/23 08:30 Urine Opiates Screen Positive ng/mL (Negative) H 08/03/23 08:30 Ur Barbiturates Screen Negative ng/mL (Negative) 08/03/23 08:30 Ur Phencyclidine Scrn Negative ng/mL (Negative) 08/03/23 08:30 Ur Amphetamines Screen Negative ng/mL (Negative) 08/03/23 08:30 U Benzodiazepines Scrn Negative ng/mL (Negative) 08/03/23 08:30 Urine Cocaine Screen Negative ng/mL (Negative) 08/03/23 08:30 U Marijuana (THC) Screen Positive ng/mL (Negative) H 08/03/23 08:30 A&P Assessment and plan (1) Acute osteomyelitis of lumbar spine: Acute osteomyelitis of the lumbar spine. Results of MRI as above Dr. Lopez has been consulted the ER. We will consult ID. He has been on outpatient treatment with clindamycin, however it appears this was for a foot infection rather than his spine. Holding off on further antibiotics after receiving 1 dose of vancomycin in the emergency room per ID recommendations to maximize yield of cultures tomorrow. Anticipate surgical intervention in the a.m. N.p.o. after midnight Blood cultures taken today. (2) Hepatitis C: Management per ID Check HIV, urine drug screen (3) Chronic pain: History of chronic pain Continue home medications including cyclobenzaprine, gabapentin, Keppra and methadone. Continue home dose of methylphenidate 20 mg twice daily Plan Full code Soft mechanical level 5 dysphagia diet, n.p.o. after midnight Famotidine for PUD prophylaxis Hold off on pharmacological prophylaxis Attestations Medical Necessity Statement*: Anticipate greater than 2 midnight admission for osteomyelitis of the lumbar spine, anticipated prolonged IV antibiotics, possible surgical intervention Diagnoses Acute osteomyelitis of lumbar spine M46.26 Hepatitis C B19.20 Chronic pain G89.29
--- NOTE | 2023-08-03 16:25 | P.CONIM_ITS ---
Providers/Reason For Consult Consulting Physician/Specialty*: Antonia Kapoor/ / Infectious disease Reason for Consult*: OM spine Requesting Physician: Jordan Wilder MD Attending Physician: Antonia Kapoor MD Primary Care Provider: Harjit Kohli DO History of Present Illness History of Present Illness Joby Jean is a 48 year old male with past medical history of IV drug use, states that he last used 7 months ago, hepatitis C chronic active who presents to the emergency room with worsening back pain. Patient has been having increasing back discomfort since March 2023 and has been having outpatient evaluation for the same. He has had serial x-rays, and MRI in mid May and then again an MRI with contrast today which raise concern for discitis at the L1-L2 level. Patient was planned for back surgery with Dr. Vannesa macias, however he is unable to tell me when this was scheduled. It appears he was planned to undergo bone biopsy and cultures for diagnostic testing. He has been taking outpatient doxycycline and then clindamycin due to some injuries he had over his \right foot from getting into a respiratory push. This has healed over completely. Denies any past medical history of osteomyelitis or endocarditis. Does not have any current orthopedic or cardiac hardware. Denies any difficulties with urinary or bowel incontinence at this present time. Review of Systems General: Reports: 10 or more systems reviewed and unremarkable except in HPI and below Const: Denies: fever(s), chills or body aches Eyes: Denies: change in vision, blurry vision or photophobia ENMT: Reports: hoarseness; Denies: throat pain, enlarged tonsils, odynophagia or nasal congestion Card: Denies: chest pain, palpitations, irregular heart rhythm, edema, swelling of feet/ankles, lightheadedness, pre-syncope, dyspnea on exertion or orthopnea Resp: Denies: dyspnea, productive cough, non-productive cough, wheezing, stridor, pain on inspiration, change in phlegm color, hemoptysis or chest congestion GI: Denies: abdominal pain, nausea, vomiting, hematemesis, coffee ground emesis, dysphagia, heartburn, diarrhea, constipation, GI cramping, change in stool character, hematochezia or melena : Denies: flank pain, dysuria, urinary frequency, urinary urgency, urinary hesitancy or hematuria Musc: Denies: neck pain, back pain, extremity pain, joint swelling, joint warmth or deformity Neuro: Denies: headache(s), numbness in extremities, weakness in extremities, sensory changes, difficulty walking, frequent falls, dizziness, vertigo, behavioral changes, Slurred speech present or seizure-like activity Psych: Denies: anxiety, depression, suicidal ideation or homicidal ideation Endo: Denies: polyuria, polydipsia, tired all the time, cold intolerance or hot flashes Festus/Lymph: Denies: easy bruising or easy bleeding Medications/Allergies Home Medications Medication Instructions Recorded Confirmed Last Taken Type clonidine HCl 0.1 mg tablet 0.1 mg PO TID 02/16/23 08/03/23 08/03/23 History gabapentin 300 mg capsule 300 mg PO TID 06/29/23 08/03/23 08/03/23 History TLSO BRACE #1 ea 07/09/23 08/03/23 Unknown Rx clindamycin HCl 300 mg capsule 300 mg PO TID 08/03/23 08/03/23 08/02/23 History cyclobenzaprine 10 mg tablet 10 mg PO TID PRN Muscle Spasm 08/03/23 08/03/23 Unknown History levetiracetam 500 mg tablet 250 mg PO BID 08/03/23 08/03/23 08/03/23 History methadone 40 mg soluble tablet 40 mg PO QAM 08/03/23 08/03/23 08/03/23 History methylphenidate HCl 20 mg tablet 20 mg PO BID 08/03/23 08/03/23 08/03/23 History Allergies Allergy/AdvReac Type Severity Reaction Status Date / Time haldol Allergy Severe ADR-Anxiety Uncoded 08/03/23 06:47 contrast dye Allergy Mild ADR-Itching Uncoded 08/03/23 06:47 Current Medications Generic Name Dose Route Start Last Admin Trade Name Freq PRN Reason Stop Dose Admin Clonidine HCl 0.1 mg 08/03/23 15:00 08/03/23 15:31 Clonidine 0.1 Mg Tablet PO Not Given TID AARTI Gabapentin 300 mg 08/03/23 15:00 08/03/23 15:32 Gabapentin 300 Mg Capsule PO Not Given TID AARTI Sodium Chloride 1,000 mls @ 100 mls/hr 08/03/23 12:06 08/03/23 12:33 Sodium Chloride 0.9% IV 100 mls/hr .Q10H AARTI Administration Morphine Sulfate 4 mg 08/03/23 12:06 08/03/23 12:32 Morphine 4 Mg/Ml Sdv 1 Ml IVP 4 mg Q4H PRN Administration SEVERE PAIN PFSH Acute PFSH: Medical History History of substance abuse Narcotic abuse Surgical History No pertinent past surgical history Social History Smoking and tobacco status: current every day smoker cigarettes Packs smoked per day: 1 Years cigarettes smoked: 30 Quit status (tobacco): has tried quititng Number of times tried to quit tobacco: 2 Second hand smoke exposure: Yes Alcohol intake: current Substance/Drug Use: current Substance/Drug use frequency: daily Other [place] bstance/drug use details: Fentanyl Current gender identity: Male Vitals/I&O/Wt Last Vital Signs Temp 97.7 F 08/03/23 14:48 Pulse 72 08/03/23 14:48 Resp 22 H 08/03/23 14:48 BP 155/94 08/03/23 14:48 Pulse Ox 93 08/03/23 14:48 O2 Del Method Room Air 08/03/23 14:48 08/03/23 08/03/23 08/03/23 06:59 14:59 22:59 Intake Total 251 / 251 Balance 251 / 251 Weight last 48 hrs Weight 81.647 kg Physical Exam Narrative: General: No acute distress, AO x3 HEENT: PERRLA, pupils bilaterally equal and reactive, pallors not present Chest: Normal vesicular breath sounds, no added sounds, equal good air entry bilaterally CVS: S1-S2 regular, no murmurs, no tachycardia, no gallops, no rubs Abdomen: Soft, nontender, no organomegaly, bowel sounds present Data 08/03/23 07:09 08/03/23 07:09 Micro: Microbiology 08/03/23 07:18 Blood Culture - Preliminary Blood SPECIMEN COLLECTED 08/03/23 07:09 Blood Culture - Preliminary Blood SPECIMEN COLLECTED Other data: Radiology Impressions Lumbar Spine MRI 08/03/23 07:47 IMPRESSION: Progression of L1-L2 discitis osteomyelitis, developing endplate irregularity increasing marrow edema and enhancement. Concentric epidural enhancement and perhaps tiny pockets of epidural fluid causing local canal narrowing. ADDENDUM: 08/03/23 0956 THIS REPORT CONTAINS FINDINGS THAT MAY BE CRITICAL TO PATIENT CARE. The findings were verbally communicated via telephone conference with YONIS JACQUES at 9:54 AM CDT on 08/03/2023. The findings were acknowledged and understood. Laboratory Results WBC 13.47 10^3/uL (3.29-11.43) H 08/03/23 07:09 RBC 4.73 10^6/uL (3.85-5.65) 08/03/23 07:09 Hgb 11.40 g/dL (11.27-16.99) 08/03/23 07:09 Hct 37.7 % (37-53) 08/03/23 07:09 MCV 79.7 fl (82-101) L 08/03/23 07:09 MCH 24.1 pg (27-33) L 08/03/23 07:09 MCHC 30.2 g/dL (30-55) 08/03/23 07:09 RDW 13.1 % (12.1-15.1) 08/03/23 07:09 Plt Count 348 10^3/cmm (157-399) 08/03/23 07:09 MPV 9.2 fL (7.4-10.4) 08/03/23 07:09 Neut % (Auto) 83.8 % 08/03/23 07:09 Lymph % (Auto) 8.7 % 08/03/23 07:09 [place] % (Auto) 5.8 % 08/03/23 07:09 Eos % (Auto) 1.1 % 08/03/23 07:09 Baso % (Auto) 0.4 % 08/03/23 07:09 Neut # (Auto) 11.29 10^3/uL (1.8-7.7) H 08/03/23 07:09 Lymph # (Auto) 1.2 10^3/uL (0.8-4.8) 08/03/23 07:09 [place] # (Auto) 0.8 10^3/uL (0.2-0.9) 08/03/23 07:09 Eos # (Auto) 0.2 10^3/uL (0.0-0.8) 08/03/23 07:09 Baso # (Auto) 0.1 10^3/uL (0.0-0.1) 08/03/23 07:09 Nucleated RBC % (auto) 0 % 08/03/23 07:09 Nucleated RBCs # 0.0 /100WBC 08/03/23 07:09 ESR 52 mm/hr (0-10) H 08/03/23 07:09 Sodium 130 mmol/L (136-145) L 08/03/23 07:09 Potassium 4.3 mmol/L (3.5-5.1) 08/03/23 07:09 Chloride 94 mmol/L (98-107) L 08/03/23 07:09 Carbon Dioxide 25 mmol/L (22-29) 08/03/23 07:09 Anion Gap 15.3 (5-19) 08/03/23 07:09 BUN 9 mg/dL (6-20) 08/03/23 07:09 Creatinine 0.7 mg/dL (0.7-1.2) 08/03/23 07:09 GFR Calculation 119.9 mL/min (90-130) 08/03/23 07:09 Glucose 108 mg/dL (65-115) 08/03/23 07:09 Calculated Osmolality 269 mOsm/kg (285-295) L 08/03/23 07:09 Lactic Acid 1.1 mmol/L (0.5-2.2) 08/03/23 07:09 Calcium 8.9 mg/dL (8.5-10.5) 08/03/23 07:09 Total Bilirubin 0.3 mg/dL (0.15-1.2) 08/03/23 07:09 AST 21 U/L (0-40) 08/03/23 07:09 ALT 20 U/L (0-41) 08/03/23 07:09 Alkaline Phosphatase 91 U/L (40-130) 08/03/23 07:09 C-Reactive Protein 14.3 mg/L (0.0-4.9) H 08/03/23 07:09 Total Protein 7.4 g/dL (6.6-8.7) 08/03/23 07:09 Albumin 3.5 g/dL (3.5-5.2) 08/03/23 07:09 Globulin 3.9 g/dL (1.3-4.6) 08/03/23 07:09 Urine Color Straw (Yellow) 08/03/23 08:30 Urine Appearance Clear (CLEAR) 08/03/23 08:30 Urine pH 9 (5-7) H 08/03/23 08:30 Ur Specific [place] 1.010 (1.005-1.030) 08/03/23 08:30 Urine Protein Neg (Negative) 08/03/23 08:30 Urine Glucose (UA) Norm (Normal) 08/03/23 08:30 Urine Ketones Negative (Negative) 08/03/23 08:30 Urine Blood Neg (Negative) 08/03/23 08:30 Urine Nitrate Negative (Negative) 08/03/23 08:30 Urine Bilirubin Neg (Negative) 08/03/23 08:30 Prot Sulfosalicylic Acd Negative (Negative) 08/03/23 08:30 Urine Urobilinogen Norm mg/dL (Negative) 08/03/23 08:30 Ur Leukocyte Esterase Negative (Negative) 08/03/23 08:30 Urine Opiates Screen Positive ng/mL (Negative) H 08/03/23 08:30 Ur Barbiturates Screen Negative ng/mL (Negative) 08/03/23 08:30 Ur Phencyclidine Scrn Negative ng/mL (Negative) 08/03/23 08:30 Ur Amphetamines Screen Negative ng/mL (Negative) 08/03/23 08:30 U Benzodiazepines Scrn Negative ng/mL (Negative) 08/03/23 08:30 Urine Cocaine Screen Negative ng/mL (Negative) 08/03/23 08:30 U Marijuana (THC) Screen Positive ng/mL (Negative) H 08/03/23 08:30 A&P Assessment and plan (1) Acute osteomyelitis of lumbar spine: Patient admitted to the inpatient unit today due to acute osteomyelitis of the lumbar spine. Looking at images from prior, it appears he may have had some early signs of osteomyelitis versus discitis since May of this year. He has been on oral antibiotics as outpatient which may reduce the yield of planned cultures/bone biopsy to be obtained tomorrow Spine surgery has been consulted from the emergency room, Dr. Lopez to evaluate in a.m. He has received a dose of IV vancomycin thus far Since patient is currently afebrile, this appears to be a more subacute process, hemodynamically stable, hold off on further doses of antibiotics unless he clinically deteriorates. This is being done to maximize yield of cultures to be taken tomorrow. Should patient clinically deteriorate, start vancomycin and Zosyn empirically. We will follow (2) Traumatic compression fracture of L2 vertebra: Likely pathological due to osteomyelitis Plan Chronic hepatitis C: To be managed once more acute issues of osteomyelitis have been addressed. We will follow-up with ID clinic as outpatient, will however obtain all necessary labs including a hep C genotype, liver ultrasound to expedite outpatient management after discharge. Consult Attestations Medical Necessity Statement: Per admitting Coding Level of Care Code Acute Code for michelet Chadwick Diagnoses Acute osteomyelitis of lumbar spine M46.26 Traumatic compression fracture of L2 vertebra S32.020A
[2023-08-03 17:06] LABS: Iron 15 ug/dL (59-158); Percent Saturation 5.6 % (20-50); Thyroid Stimulating Hormone 1.82 uIU/mL (0.27-4.20); Total Iron Binding Capacity 264 mcg/dl; Unsaturated Iron Binding 249 ug/dL (112-347); Vitamin B12 403 pg/mL (232-1245)
[2023-08-03] MEDS: levETIRAcetam 500 mg Tablet 250 MG PO (17:34)
[2023-08-03] MEDS: methylphenidate 10 mg Tablet 20 MG PO (17:34)
[2023-08-03] MEDS: famotidine 20 mg Tablet PO (18:03)
[2023-08-03] MEDS: cyclobenzaprine 10 mg Tablet PO (18:03)
[2023-08-03] MEDS: morphine 4 mg/mL SDV 1 mL 2 MG IVP (20:30)
[2023-08-03] MEDS: cloNIDine 0.1 mg Tablet PO (21:22)
[2023-08-03] MEDS: gabapentin 300 mg Capsule PO (21:22)
[2023-08-03] MEDS: HYDROmorphone 1 mg/mL INJ 1 mL 2 MG IVP (21:53)
[2023-08-04] VITALS (20 sets, daily range): BP systolic 147–164; BP diastolic 80–93; PULSE 63–80; RESP 16–20; TEMP 36.4–36.9; O2SAT 93–96; BMI 24.4
[2023-08-04] MEDS: cyclobenzaprine 10 mg Tablet PO (01:58)
[2023-08-04] MEDS: HYDROmorphone 1 mg/mL INJ 1 mL 2 MG IVP (05:16)
[2023-08-04 05:32] LABS: Bacillus cereus group Not Detected (NOT DETECT); Bacillus subtillis group Not Detected (NOT DETECT); Corynebacterium Not Detected (NOT DETECT); Cutibacterium acnes (P.acnes) Not Detected (NOT DETECT); Enterococcus Not Detected (NOT DETECT); Enterococcus faecalis Not Detected (NOT DETECT); Enterococcus faecium Not Detected (NOT DETECT); Lactobacillus species Not Detected (NOT DETECT); Listeria Not Detected (NOT DETECT); Listeria monocytogenes Not Detected (NOT DETECT); Micrococcus Not Detected (NOT DETECT); Pan Candida Not Detected (NOT DETECT); Pan Gram-Negative Not Detected (NOT DETECT); Staphylococcus epidermidis Not Detected (NOT DETECT); Staphylococcus lugdunensis Not Detected (NOT DETECT); Staphylococcus species Detected (NOT DETECT); Streptococcus agalactiae Not Detected (NOT DETECT); Streptococcus anginosus group Not Detected (NOT DETECT); Streptococcus pneumoniae Not Detected (NOT DETECT); Streptococcus pyogenes Not Detected (NOT DETECT); Streptococcus species Not Detected (NOT DETECT); mecA Detected (NOT DETECT); mecC Not Detected (NOT DETECT)
[2023-08-04 05:44] LABS: Basophils % 0.3 %; Eosinophils # 0.1 10^3/uL (0.0-0.8); Eosinophils % 0.5 %; Hematocrit 34.7 % (37-53); Lymphocytes # 1.9 10^3/uL (0.8-4.8); Lymphocytes % 12.5 %; Mean Corpuscular HGB Conc 31.7 g/dL (30-55); Mean Corpuscular Hemoglobin 24.6 pg (27-33); Mean Corpuscular Volume 77.6 fl (82-101); Mean Platelet Volume 8.6 fL (7.4-10.4); Monocytes % 6.4 %; Neutrophils # 12.22 10^3/uL (1.8-7.7); Neutrophils % 79.8 %; Nucleated Red Blood Cells % 0 %; Platelet Count 374 10^3/cmm (157-399); Red Blood Count 4.47 10^6/uL (3.85-5.65); Red Cell Distribution Width 13.1 % (12.1-15.1); White Blood Count 15.32 10^3/uL (3.29-11.43)
[2023-08-04 05:57] LABS: Estmated Average Glucose 108; Hemoglobin A1C 5.4 % (4.0-6.0)
[2023-08-04 06:07] LABS: Chol HDL Ratio 4.26 mg/dL (1.0-5.00); Cholesterol 162 mg/dL (0-200); HDL Cholesterol 38 mg/dL (60-100); LDL Cholesterol Calculated 107 mg/dL (50-129); Magnesium 1.8 mg/dL (1.7-2.3); Triglycerides 85 mg/dL (0-150); VLDL Cholestrol Calculation 17 mg/dL (0-30)
[2023-08-04 06:09] LABS: Alanine Aminotransferase 18 U/L (0-41); Albumin Level 3.4 g/dL (3.5-5.2); Alkaline Phosphatase 85 U/L (40-130); Anion Gap 11.9 (5-19); Aspartate Amino Transferase 15 U/L (0-40); Blood Urea Nitrogen 12 mg/dL (6-20); Carbon Dioxide 29 mmol/L (22-29); Chloride 96 mmol/L (98-107); Globulin 4.2 g/dL (1.3-4.6); Glomerular Filtration Rate 143.2 mL/min (90-130); Glucose 91 mg/dL (65-115); Osmolality Calculated 275 mOsm/kg (285-295); Potassium 3.9 mmol/L (3.5-5.1); Sodium 133 mmol/L (136-145); Total Bilirubin 0.2 mg/dL (0.15-1.2); Total Protein 7.6 g/dL (6.6-8.7)
[2023-08-04 06:24] LABS: Folate Level 6.1 ng/mL (4.5-32.2)
[2023-08-04 06:31] LABS: HIV 1 & 2 Antibody Non-Reactive (Non-Reactiv); HIV 1 & 2 Antigen Non-Reactive (Non-Reactiv)
[2023-08-04] MEDS: methadone 10 mg Tablet 40 MG PO (06:46)
--- NOTE | 2023-08-04 07:37 | PM.CONSULT ---
Providers/Reason For Consult Consulting Physician/Specialty*: Ortho spine Reason for Consult*: Back pain Attending Physician: Jordan Wilder MD Primary Care Provider: Harjit Kohli DO History of Present Illness History of Present Illness Joby Jean is a 48 year old male who presents to the hospital with increased back pain. This pain is progressively gotten worse. Patient denies fevers at home. He does have history of compression fracture with questionable osteomyelitis of the lumbar spine/discitis. He is developed intractable back pain he was admitted for more definitive treatment. Patient has been scheduled for a kyphoplasty/bone biopsy but is pending approval. He has had progressive worsening back pain intermittent hip pain that is worse with movements. Ranks it as 10 out of 10 on the pain scale. Denies any loss of bowel or bladder control. He has not found much to give him any relief. He is requesting more pain medication. Patient does report a substance abuse history. Review of Systems General: Reports: 10 or more systems reviewed and unremarkable except in HPI and below Const: Denies: fever(s), chills or body aches Eyes: Denies: change in vision, blurry vision or photophobia ENMT: Reports: hoarseness; Denies: throat pain, enlarged tonsils, odynophagia or nasal congestion Card: Denies: chest pain, palpitations, irregular heart rhythm, edema, swelling of feet/ankles, lightheadedness, pre-syncope, dyspnea on exertion or orthopnea Resp: Denies: dyspnea, productive cough, non-productive cough, wheezing, stridor, pain on inspiration, change in phlegm color, hemoptysis or chest congestion GI: Denies: abdominal pain, nausea, vomiting, hematemesis, coffee ground emesis, dysphagia, heartburn, diarrhea, constipation, GI cramping, change in stool character, hematochezia or melena : Denies: flank pain, dysuria, urinary frequency, urinary urgency, urinary hesitancy or hematuria Musc: Denies: neck pain, back pain, extremity pain, joint swelling, joint warmth or deformity Neuro: Denies: headache(s), numbness in extremities, weakness in extremities, sensory changes, difficulty walking, frequent falls, dizziness, vertigo, behavioral changes, Slurred speech present or seizure-like activity Psych: Denies: anxiety, depression, suicidal ideation or homicidal ideation Endo: Denies: polyuria, polydipsia, tired all the time, cold intolerance or hot flashes Festus/Lymph: Denies: easy bruising or easy bleeding Medications/Allergies Home Medications Medication Instructions Recorded Confirmed Last Taken Type clonidine HCl 0.1 mg tablet 0.1 mg PO TID 02/16/23 08/03/23 08/03/23 History gabapentin 300 mg capsule 300 mg PO TID 06/29/23 08/03/23 08/03/23 History TLSO BRACE #1 ea 07/09/23 08/03/23 Unknown Rx clindamycin HCl 300 mg capsule 300 mg PO TID 08/03/23 08/03/23 08/02/23 History cyclobenzaprine 10 mg tablet 10 mg PO TID PRN Muscle Spasm 08/03/23 08/03/23 Unknown History levetiracetam 500 mg tablet 250 mg PO BID 08/03/23 08/03/23 08/03/23 History methadone 40 mg soluble tablet 40 mg PO QAM 08/03/23 08/03/23 08/03/23 History methylphenidate HCl 20 mg tablet 20 mg PO BID 08/03/23 08/03/23 08/03/23 History Allergies Allergy/AdvReac Type Severity Reaction Status Date / Time haldol Allergy Severe ADR-Anxiety Uncoded 08/03/23 06:47 contrast dye Allergy Mild ADR-Itching Uncoded 08/03/23 06:47 Current Medications Generic Name Dose Route Start Last Admin Trade Name Arnulfoq PRN Reason Stop Dose Admin Clonidine HCl 0.1 mg 08/03/23 15:00 08/03/23 21:22 Clonidine 0.1 Mg Tablet PO 0.1 mg TID AARTI Administration Cyclobenzaprine HCl 10 mg 08/03/23 12:38 08/04/23 01:58 Cyclobenzaprine 10 Mg Tablet PO 10 mg TID PRN Administration Muscle Spasm Famotidine 20 mg 08/03/23 18:00 08/03/23 18:03 Famotidine 20 Mg Tablet PO 20 mg BID AARTI Administration Gabapentin 300 mg 08/03/23 15:00 08/03/23 21:22 Gabapentin 300 Mg Capsule PO 300 mg TID AARTI Administration Sodium Chloride 1,000 mls @ 100 mls/hr 08/03/23 12:06 08/03/23 21:54 Sodium Chloride 0.9% IV 100 mls/hr .Q10H AARTI Administration Levetiracetam 250 mg 08/03/23 18:00 08/03/23 17:34 Levetiracetam 500 Mg Tablet PO 250 mg BID AARTI Administration Methadone HCl 40 mg 08/04/23 06:00 08/04/23 06:46 Methadone 10 Mg Tablet PO 40 mg QAM AARTI Administration Methylphenidate HCl 20 mg 08/03/23 18:00 08/03/23 17:34 Methylphenidate 10 Mg Tablet PO 20 mg BID AARTI Administration Morphine Sulfate 2 mg 08/03/23 17:37 08/03/23 20:30 Morphine 4 Mg/Ml Sdv 1 Ml IVP 2 mg Q4H PRN Administration SEVERE PAIN PFSH Acute PFSH: Medical History (Updated 08/04/23 @ 16:47 by Jordan Wilder MD) Bleeding per rectum Femoral acetabular impingement History of drainage of abscess multiple History of substance abuse Narcotic abuse Social anxiety disorder Trauma in childhood Surgical History (Updated 08/04/23 @ 16:47 by Jordan Wilder MD) History of colonoscopy 2008 History of facial surgery 2013 History of liver biopsy 2012 No pertinent past surgical history Social History Smoking and tobacco status: current every day smoker cigarettes Packs smoked per day: 1 Years cigarettes smoked: 30 Quit status (tobacco): has tried quititng Number of times tried to quit tobacco: 2 Second hand smoke exposure: Yes Alcohol intake: current Substance/Drug Use: current Substance/Drug use frequency: daily Other substance/drug use details: Fentanyl Current gender identity: Male Vitals/I&O/Wt Last Vital Signs Temp 97.6 F 08/04/23 04:00 Pulse 66 08/04/23 06:02 Resp 16 08/04/23 05:16 BP 147/91 08/04/23 04:00 Pulse Ox 94 08/04/23 04:00 O2 Del Method Room Air 08/03/23 20:29 08/03/23 08/04/23 08/04/23 22:59 06:59 14:59 Intake Total 1600 / 1851 Output Total 225 / 225 850 / 1075 Balance 1375 / 1626 -850 / 776 Weight last 48 hrs Weight 180 lb Physical Exam Narrative: Patient is alert orient x3 has a good general appearance normal mood and affect. Patient is in obvious acute distress. Demonstrates dorsiflexion and plantarflexion with difficulty of both lower extremities. Severe palpatory and percussion pain throughout the paraspinous musculature of the thoracolumbar spine. Normal sensation to light touch through all dermatomal layers. Normal sensation light touch down both lower extremities with 4/5 motor strength throughout all motor groups. No palpable pain over the SI joints bilaterally. Negative Calixto and Fabere sign. Positive straight leg raise bilaterally. Skin is clear warm with normal sensation to light touch, calves are supple with no medial thigh tenderness, negative Homans' sign. No palpable lymphadenopathy bilaterally. Reflexes are 1+ and symmetric about the knees and Achilles. Dorsalis pedis and posterior tibial pulses are 1+. No palpable edema bilaterally. HENMT: COMMON NORMALS: normocephalic HEAD & SCALP: normocephalic Resp: COMMON NORMALS: normal respiratory effort Cardio: COMMON NORMALS: regular rate and regular rhythm RATE: regular rate RHYTHM: regular rhythm GI: COMMON NORMALS: Soft to palpation and non-tender PALPATION: Yes Soft to palpation : COMMON NORMALS: Yes no CVA tenderness BLADDER/KIDNEY EXAM: Yes no CVA tenderness Back/Pelvis: COMMON NORMALS: no CVA tenderness Psych: COMMON NORMALS: mental status grossly normal and cooperative Data 08/04/23 05:15 08/04/23 05:15 Micro: Microbiology 08/03/23 07:09 Blood Culture - Preliminary Blood NEGATIVE TO DATE 08/03/23 07:18 Blood Culture - Preliminary Blood MRI: Radiologist's impression: MR/MR lumbar spine wo/w con [id number] IMPRESSION: Progression of L1-L2 discitis osteomyelitis, developing endplate irregularity increasing marrow edema and enhancement.? Concentric epidural enhancement and perhaps tiny pockets of epidural fluid causing local canal narrowing. A&P Assessment and plan (1) Acute osteomyelitis of lumbar spine: Leslie with Dr. Jarvis at this point recommendation would be a biopsy to try and obtain the tissue sample. Given the infectious nature of the condition would not recommend kyphoplasty at this time. Continue with TLSO brace when up. (2) Traumatic compression fracture of L2 vertebra: Coding Level of Care Code Acute Code for [facility] Diagnoses Acute osteomyelitis of lumbar spine M46.26 Traumatic compression fracture of L2 vertebra S32.020A
[2023-08-04 08:06] LABS: C Reactive Protein 14.4 mg/L (0.0-4.9)
[2023-08-04] MEDS: morphine 4 mg/mL SDV 1 mL 2 MG IVP (08:22)
[2023-08-04] MEDS: methylphenidate 10 mg Tablet 20 MG PO ×2 (08:24→17:31)
[2023-08-04] MEDS: levETIRAcetam 500 mg Tablet 250 MG PO ×2 (08:24→17:32)
[2023-08-04] MEDS: famotidine 20 mg Tablet PO ×2 (08:25→17:32)
[2023-08-04] MEDS: gabapentin 300 mg Capsule PO ×3 (08:25→20:36)
[2023-08-04] MEDS: cloNIDine 0.1 mg Tablet PO ×3 (08:25→20:36)
--- NOTE | 2023-08-04 10:36 | PC.NURSE ---
IVF not started yet on this patient. No suitable IV present. Dr. Kapoor and Dr. Wilder notified. tool supervisor to start IJ.
--- NOTE | 2023-08-04 10:51 | USCV_ITS ---
Joby Jean Age: 48 Gender: M : 1975 Exam Date: 08/04/2023 11:18 Ordering Phys: Antonia Kapoor MD Technologist: Faustino Phipps [place] [facility] [place]: ? veg BP: 132 / 72 HR: 63 Rhythm: Sinus Technical Quality: Adequate MEASUREMENTS (Male / Female) Normal Values 2D ECHO LV Diastolic Diameter PLAX 4.8 cm 4.2 - 5.9 / 3.9 - 5.3 cm LV Systolic Diameter PLAX 2.6 cm IVS Diastolic Thickness 0.9 cm 0.6 - 1.0 / 0.6 - 0.9 cm IVS Systolic Thickness 1.7 cm LVPW Diastolic Thickness 1.1 cm 0.6 - 1.0 / 0.6 - 0.9 cm LVPW Systolic Thickness 1.3 cm LVOT Diameter 2.0 cm LV Ejection Fraction 2D Teich 76.4 % LV Ejection Fraction MOD 2C 61.7 % LV Ejection Fraction 2C AL 61.5 % LA Diameter 3.7 cm IVC Diameter 1.4 cm M-MODE Aortic Annulus Diameter 4.0 cm LA Ao Ratio MM 1.0 MV E Point Septal Separation 1.0 cm DOPPLER AV Peak Velocity 109.0 cm/s LVOT Peak Velocity 98.0 cm/s AV Area Cont Eq vti 3.2 cm squared AV Area Cont Eq pk 2.9 cm squared MV Area PHT 4.0 cm squared Mitral E to A Ratio 0.9 MV E' Velocity 51.5 cm/s Mitral E to MV E' Ratio 9.9 Mitral E to LV E' Lateral Ratio 9.2 Mitral E to LV E' Septal Ratio 10.7 TR Peak Velocity 120.7 cm/s TR Peak Gradient 5.8 mmHg TV Peak E Velocity 76.0 cm/s Right Atrial Pressure 3.0 mmHg Pulmonary Artery Systolic Pressu 8.8 mmHg RV Acceleration Time 0.1 s FINDINGS Left Ventricle Normal left ventricular size, systolic function and wall thickness, with no regional wall motion abnormalities. Normal left ventricular wall thickness. Normal diastolic filling pattern. Right Ventricle The right ventricle is normal in size and function. Right Atrium The right atrium is normal in size. Left Atrium The left atrium is normal in size. Mitral Valve Structurally normal mitral valve without significant stenosis or prolapse. There is no mitral regurgitation. Aortic Valve Structurally normal aortic valve without significant sclerosis or stenosis. There is no aortic regurgitation. Tricuspid Valve Structurally normal tricuspid valve without significant stenosis or regurgitation. Pulmonary artery systolic pressure is normal. Pulmonic Valve Structurally normal pulmonic valve without significant stenosis. There is no pulmonic regurgitation. Pericardium Normal pericardium without effusion. Aorta Normal ascending aorta dimension. IVC The inferior vena cava appears normal. CONCLUSIONS Normal transthoracic echocardiogram. There are no obvious valvular vegetations noted on this study. No valvular regurgitation. If there is a significant clinical suspicion for endocarditis, transesophageal echocardiogram should be considered. There are no prior echocardiogram studies to compare. Dr. Gm Boss MD (Electronically Signed) Final Date: 04 August 2023 18:16 S
[2023-08-04] MEDS: linezolid 600 mg Tablet PO (11:12)
[2023-08-04] MEDS: HYDROmorphone 1 mg/mL INJ 1 mL 0.5 MG IVP ×5 (11:42→21:00)
[2023-08-04] MEDS: TRAMadol 50 mg Tablet 100 MG PO ×3 (12:42→23:54)
[2023-08-04] MEDS: ondansetron 2 mg/ML SDV 2 mL 4 MG IVP (12:42)
--- NOTE | 2023-08-04 13:30 | PC.NURSE ---
Midline placed to left basilic vein. Referred for midline placement due to poor access. Risks and benefits discussed with patient and medical spokesperson and informed consent obtained. Left basilic vein assessed, noted to be 4 mm, straight, and apparent best choice for placement. Using sterile technique and MST, left basilic vein accessed x 1 stick. Mid-arm circumference measured 10 cm from left AC 32 cm. Trimmed cath length 8 cm, terminating at axilla. Good blood return noted and flushed without difficulty. Line secured with stat-lock. Insertion site covered with Biopatch and TSM. Report given to bedside nurse, Alicia.
[2023-08-04] MEDS: vancomycin 1,250 MG/250 ML PIGGYBACK 250 MG IV ×2 (14:09→22:03)
--- NOTE | 2023-08-04 15:55 | PM.PN ---
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: Infectious disease progress note Patient blood culture returned positive for gram-positive cocci awaiting further identification. He has been unable to get an IV line placed since yesterday in spite of multiple attempts. A midline is being placed today due to lack of other failed attempts. He has been given linezolid 600 mg x 1 while awaiting IV line placement to start vancomycin. He remains afebrile hemodynamically stable Leukocytosis is uptrending. Medications: Reviewed: Yes Vitals/I&O/Wt Last Vital Signs Temp 97.5 F L 08/04/23 11:43 Pulse 63 08/04/23 14:00 Resp 18 08/04/23 14:08 BP 160/90 08/04/23 14:09 Pulse Ox 94 08/04/23 11:43 O2 Del Method Room Air 08/04/23 11:43 08/04/23 08/04/23 08/04/23 06:59 14:59 22:59 Intake Total 1000 / 1000 Output Total 850 / 1075 Balance -850 / 776 1000 / 1000 Weight last 48 hrs Weight 81.647 kg Weight 81.647 kg Physical Exam Narrative: General: No acute distress, AO x3 HEENT: PERRLA, pupils bilaterally equal and reactive, pallors not present Chest: Normal vesicular breath sounds, no added sounds, equal good air entry bilaterally CVS: S1-S2 regular, no murmurs, no tachycardia, no gallops, no rubs Abdomen: Soft, nontender, no organomegaly, bowel sounds present Data 08/04/23 05:15 08/04/23 05:15 Micro: Microbiology 08/03/23 17:42 MRSA Culture - Final Nose 08/03/23 07:09 Blood Culture - Preliminary Blood NEGATIVE TO DATE 08/03/23 07:18 Blood Culture - Preliminary Blood GRAM POSITIVE COCCI IN CLUSTERS A&P Assessment and plan (1) Acute osteomyelitis of lumbar spine: Patient admitted with osteomyelitis of the lumbar spine. Blood culture today showing gram-positive cocci in clusters preliminarily. Patient to be started on vancomycin given positive blood cultures. He has had difficulties with IV access over the last 2 days. We will give him a dose of linezolid 600 mg x 1 now while awaiting placement of a midline. Ideally would have preferred to continue with peripheral lines until blood culture documented to be clear for at least 72 hours, however multiple attempts at peripheral IVs have been unsuccessful and patient has not received any IV fluids since yesterday. Now also needs to start IV antibiotics urgently given positive blood cultures. We will place a midline with plan to replace it with a definitive PICC once blood cultures have cleared. Spine surgery has been consulted from the emergency room, possible OR in a.m. will follow Check echocardiogram given recovery of GPC's in clusters, patient may have subacute endocarditis additionally given his risk factors with IV drug use and subacute course. Repeat blood cultures in a.m. labs to a certain clearance (2) Hepatitis C: Hepatitis C antibody: Reactive from February 16, 2023 Hepatitis C RNA: LOC 6.4 from February 16, 2023, repeat pending Hep C genotype: Pending Hep B surface antigen: Nonreactive from January 2023 Hep B surface antibody: 28.1 Hep B core antibody: Reactive from January 2023 HIV-1 2 antigen antibody: Nonreactive from August 04, 2023 AST ALT: 15, 18 Liver ultrasound : No signs of cirrhosis currently Anticipate starting Mavyret as outpatient shortly after discharge. Medication not currently available on inpatient formulary. Attestations Medical Necessity Statement*: Positive blood cultures, needs IV antibiotics, planned surgery Coding Level of Care Code Acute Code for [facility] Diagnoses Acute osteomyelitis of lumbar spine M46.26 Hepatitis C B19.20
--- NOTE | 2023-08-04 16:32 | US_ITS ---
WS: [id number] RIGHT UPPER QUADRANT ULTRASOUND HISTORY: hepatitis c COMPARISON: None available. Liver: 15.3 cm in length. Normal size liver and echogenicity. No bile duct dilatation or mass. Portal Vein: Normal hepatopetal flow with monophasic waveform. Gallbladder: Normally distended gallbladder with no stones or wall thickening. CBD: 0.4 cm Pancreas: Not visualized. Right kidney: 11.1 cm in length. Normal size and echogenicity. No hydronephrosis or mass. Aorta and IVC: Not visualized. There is a very tiny, trace amount of free fluid in Morison's pouch. IMPRESSION: 1. Negative gallbladder. 2. Trace free fluid near Morison's pouch. 3. Nonvisualization of the pancreas or aorta. 4. Negative liver.
--- NOTE | 2023-08-04 16:43 | P.PN_ITS ---
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: No acute events overnight. On examination patient lying in bed. Complaining of back pain on slight movement. Denies any nausea, vomiting, headache. States he gets methadone from [facility] clinic. Has been stable at 40 mg for quite some time. Asking if pain medication frequency can be narrowed down because of excessive pain. Denies any nausea vomiting, headache, tingling sensation in foot. Vital stable with mild elevation of systolic blood pressures. Blood work today shows persistent leukocytosis at 15.32, hemoglobin of 11, hyponatremia improving up to 133, stable creatinine, A1c of 5.4. Blood cultures today positive for GPC's. MRSA positive. Medications: Reviewed: Yes Vitals/I&O/Wt Last Vital Signs Temp 97.5 F L 08/04/23 11:43 Pulse 63 08/04/23 14:00 Resp 18 08/04/23 16:15 BP 160/90 08/04/23 14:09 Pulse Ox 94 08/04/23 11:43 O2 Del Method Room Air 08/04/23 11:43 08/04/23 08/04/23 08/04/23 06:59 14:59 22:59 Intake Total 1000 / 1000 Output Total 850 / 1075 Balance -850 / 776 1000 / 1000 Weight last 48 hrs Weight 81.647 kg Weight 81.647 kg Physical Exam Narrative: EXAM NARRATIVE: General: No acute distress, AO x3 HEENT: PERRLA, pupils bilaterally equal and reactive Chest: equal good air entry bilaterally, no more fine basal crackles CVS: S1-S2 regular, no murmurs, no tachycardia, no gallops, no rubs Abdomen: Soft, nontender, no organomegaly, bowel sounds present, morbidly obese Neuro: No focal deficits, no facial deformity, AO x3, lower limb power could not be assessed because of back pain. Straight leg test positive. Data 08/04/23 05:15 08/04/23 05:15 Micro: Microbiology 08/03/23 17:42 MRSA Culture - Final Nose 08/03/23 07:09 Blood Culture - Preliminary Blood NEGATIVE TO DATE 08/03/23 07:18 Blood Culture - Preliminary Blood A&P Assessment and plan (1) Acute osteomyelitis of lumbar spine: Patient admitted with osteomyelitis of the lumbar spine. Blood culture today showing gram-positive cocci in clusters preliminarily. Appreciate ID and orthopedic consultation. Plan for the OR in AM. N.p.o. after midnight placed by surgical team. Antibiotics to be started as per ID team. For now on oral linezolid as patient does not have an IV access. Plan for midline placement and then switch over to IV vancomycin. Echocardiogram ordered to rule out possible endocarditis. Patient is at high risk given history of drug abuse. Overall patient would need at least 6 weeks of IV antibiotics after first negative blood cultures for management of discitis/osteomyelitis and epidural abscess. Continue with home dose of methadone. Add Dilaudid 0.5 mg every 2 hourly IV as needed. Tramadol 100 mg every 6 hourly standing. (2) Hepatitis C: Appreciate ID recommendations. HIV negative. Liver ultrasound appreciated. Plan for treatment as an outpatient. (3) Gram-positive bacteremia: (4) Major depressive disorder, recurrent severe without psychotic features: (5) History of substance abuse: (6) Methadone dependence: (7) Chronic pain: Plan Hypertension: Goal blood pressure less than 140/90 mmHg. For now continue with home dose of clonidine 0.1 mg 3 times daily. Will uptitrate as per goal blood pressures for the next 24 hours. Full code Start on regular diet, n.p.o. after midnight SCDs for DVT prophylaxis, holding off on medical prophylaxis in case of OR tomorrow Famotidine for PUD prophylaxis. Discharge planning: Discussed in detail with patient at bedside. Patient will need prolonged IV antibiotic course given discitis and blood culture positive though given history of substance abuse patient is not appropriate to be sent home with PICC line for IV antibiotics. Patient would most likely need placement to SNF versus acute rehab versus swing bed versus LTAC. Patient is agreeable to would want to try at a local SNF. Case management alerted. Anticipate prolonged hospitalization for now given positive blood cultures and need for placement. Attestations Medical Necessity Statement*: Requires further hospitalization for management of gram-positive bacteremia in setting of vertebral osteomyelitis/discitis Diagnoses Acute osteomyelitis of lumbar spine M46.26 Hepatitis C B19.20 Gram-positive bacteremia R78.81 Major depressive disorder, recurrent severe without psychotic features F33.2 History of substance abuse F19.11 Methadone dependence F11.20 Chronic pain G89.29
[2023-08-04] MEDS: sodium chloride 0.9% 1,000 ML 100 ML IV (19:08)
[2023-08-05] VITALS (18 sets, daily range): BP systolic 143–165; BP diastolic 82–101; PULSE 66–81; RESP 16–22; TEMP 36.6–37.1; O2SAT 91–96; BMI 24.4
[2023-08-05] MEDS: cyclobenzaprine 10 mg Tablet PO ×2 (00:01→16:25)
[2023-08-05] MEDS: HYDROmorphone 1 mg/mL INJ 1 mL 0.5 MG IVP ×5 (00:53→20:35)
[2023-08-05 05:27] LABS: Basophils % 0.2 %; Eosinophils # 0.2 10^3/uL (0.0-0.8); Eosinophils % 1.3 %; Hematocrit 36.7 % (37-53); Lymphocytes # 1.6 10^3/uL (0.8-4.8); Lymphocytes % 12.2 %; Mean Corpuscular HGB Conc 31.9 g/dL (30-55); Mean Corpuscular Hemoglobin 24.2 pg (27-33); Mean Platelet Volume 8.6 fL (7.4-10.4); Monocytes % 7.6 %; Neutrophils # 9.96 10^3/uL (1.8-7.7); Neutrophils % 78.4 %; Nucleated Red Blood Cells % 0 %; Platelet Count 370 10^3/cmm (157-399); Red Blood Count 4.83 10^6/uL (3.85-5.65); White Blood Count 12.72 10^3/uL (3.29-11.43)
[2023-08-05] MEDS: methadone 10 mg Tablet 40 MG PO (05:40)
[2023-08-05] MEDS: TRAMadol 50 mg Tablet 100 MG PO ×2 (05:41→17:35)
[2023-08-05 05:43] LABS: Magnesium 1.8 mg/dL (1.7-2.3)
[2023-08-05] MEDS: vancomycin 1,250 MG/250 ML PIGGYBACK 250 MG IV (05:46)
[2023-08-05 05:53] LABS: Alanine Aminotransferase 17 U/L (0-41); Albumin Level 3.6 g/dL (3.5-5.2); Alkaline Phosphatase 87 U/L (40-130); Anion Gap 15.3 (5-19); Aspartate Amino Transferase 17 U/L (0-40); Blood Urea Nitrogen 11 mg/dL (6-20); Carbon Dioxide 26 mmol/L (22-29); Chloride 92 mmol/L (98-107); Globulin 4.2 g/dL (1.3-4.6); Glomerular Filtration Rate 143.2 mL/min (90-130); Glucose 80 mg/dL (65-115); Osmolality Calculated 266 mOsm/kg (285-295); Potassium 4.3 mmol/L (3.5-5.1); Sodium 129 mmol/L (136-145); Total Bilirubin 0.4 mg/dL (0.15-1.2); Total Protein 7.8 g/dL (6.6-8.7)
--- NOTE | 2023-08-05 06:49 | PM.PN ---
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: Resting comfortably. No changes from yesterday from a back pain standpoint. Denies any neurologic changes. Denies any shortness of breath chest pain. Vitals/I&O/Wt Last Vital Signs Temp 98.6 F 08/05/23 04:18 Pulse 68 08/05/23 06:00 Resp 16 08/05/23 06:12 BP 150/90 08/05/23 04:18 Pulse Ox 95 08/05/23 05:40 O2 Del Method Room Air 08/04/23 16:00 08/04/23 08/04/23 08/05/23 14:59 22:59 06:59 Intake Total 1000 / 1000 490 / 1490 250 / 1740 Output Total 500 / 500 800 / 1300 Balance 1000 / 1000 -10 / 990 -550 / 440 Weight last 48 hrs Weight 180 lb Physical Exam Narrative: Patient is alert and oriented has good general appearance normal mood and affect. Very somnolent this morning. He is tender with palpation through the mid back upper lumbar region. He moves both lower extremities feet are warm good cap refill fires in all motor groups with 4/5 strength. Dorsalis pedis posterior tibial pulses are palpable calves are supple no medial thigh tenderness. HENMT: COMMON NORMALS: normocephalic HEAD & SCALP: normocephalic Resp: COMMON NORMALS: normal respiratory effort Cardio: COMMON NORMALS: regular rate and regular rhythm RATE: regular rate RHYTHM: regular rhythm GI: COMMON NORMALS: Soft to palpation PALPATION: Yes Soft to palpation : COMMON NORMALS: Yes no CVA tenderness BLADDER/KIDNEY EXAM: Yes no CVA tenderness Back/Pelvis: COMMON NORMALS: no CVA tenderness Psych: COMMON NORMALS: mental status grossly normal and cooperative Data 08/05/23 05:10 08/05/23 05:10 Micro: Microbiology 08/05/23 05:10 Blood Culture - Preliminary Blood SPECIMEN COLLECTED 08/05/23 05:10 Blood Culture - Preliminary Blood SPECIMEN COLLECTED 08/03/23 17:42 MRSA Culture - Final Nose 08/03/23 07:09 Blood Culture - Preliminary Blood NEGATIVE TO DATE 08/03/23 07:18 Blood Culture - Preliminary Blood A&P Assessment and plan (1) Acute osteomyelitis of lumbar spine: At this point from an orthopedic standpoint nothing surgical. Remove the n.p.o. status from orthopedic standpoint. Infectious disease is planned for PICC line and antibiotics. We will have him wear the TLSO brace when he is up ambulatory. Continue incentive spirometer for pulmonary toilet. SCDs for DVT prophylaxis. (2) Traumatic compression fracture of L2 vertebra: Attestations Medical Necessity Statement*: Defer to medical team Coding Level of Care Code Acute Code for [facility] Diagnoses Acute osteomyelitis of lumbar spine M46.26 Traumatic compression fracture of L2 vertebra S32.020A
[2023-08-05] MEDS: gabapentin 300 mg Capsule PO ×3 (08:24→20:25)
[2023-08-05] MEDS: cloNIDine 0.1 mg Tablet PO ×3 (08:24→20:25)
[2023-08-05] MEDS: levETIRAcetam 500 mg Tablet 250 MG PO ×2 (08:25→17:34)
[2023-08-05] MEDS: famotidine 20 mg Tablet PO ×2 (08:26→17:35)
[2023-08-05] MEDS: sodium chloride 0.9% 1,000 ML 100 ML IV (08:33)
[2023-08-05] MEDS: methylphenidate 10 mg Tablet 20 MG PO ×2 (08:48→17:34)
[2023-08-05] MEDS: amlodipine 10 mg Tablet PO (09:49)
--- NOTE | 2023-08-05 13:39 | PM.PN ---
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: No acute events overnight. Patient has remained hemodynamically stable and afebrile. On examination patient states he continues to have back pain on minimal movement. Denies any nausea vomiting, headache. Discussed in detail with the patient as important for him to get out of bed and move as much as possible. Patient verbalized understanding and is agreeable to try with physical therapy. Patient is comfortable with the current pain regimen therapy. Blood work today shows a white count of 12.7, hemoglobin of 11.7, CMP showing a stable creatinine though sodium down to 129. Medications: Reviewed: Yes Vitals/I&O/Wt Last Vital Signs Temp 97.8 F 08/05/23 11:39 Pulse 67 08/05/23 11:39 Resp 18 08/05/23 11:39 BP 150/83 08/05/23 11:39 Pulse Ox 94 08/05/23 11:39 O2 Del Method Room Air 08/05/23 11:39 08/04/23 08/05/23 08/05/23 22:59 06:59 14:59 Intake Total 490 / 1490 250 / 1740 1850 / 1850 Output Total 500 / 500 800 / 1300 Balance -10 / 0 -550 / 440 1850 / 1850 Weight last 48 hrs Weight 81.647 kg Weight 81.647 kg Physical Exam Narrative: EXAM NARRATIVE: General: No acute distress, AO x3 HEENT: PERRLA, pupils bilaterally equal and reactive Chest: equal good air entry bilaterally, no more fine basal crackles CVS: S1-S2 regular, no murmurs, no tachycardia, no gallops, no rubs Abdomen: Soft, nontender, no organomegaly, bowel sounds present, morbidly obese Neuro: No focal deficits, no facial deformity, AO x3, lower limb power could not be assessed because of back pain. Straight leg test positive. Data 08/05/23 05:10 08/05/23 05:10 Micro: Microbiology 08/03/23 07:09 Blood Culture - Preliminary Blood Staphylococcus aureus 08/03/23 07:18 Blood Culture - Preliminary Blood Staphylococcus aureus 08/05/23 05:10 Blood Culture - Preliminary Blood SPECIMEN COLLECTED 08/05/23 05:10 Blood Culture - Preliminary Blood SPECIMEN COLLECTED 08/03/23 17:42 MRSA Culture - Final Nose A&P Assessment and plan (1) Acute osteomyelitis of lumbar spine: Patient admitted with osteomyelitis of the lumbar spine. Blood culture today showing gram-positive cocci in clusters preliminarily. Appreciate ID and orthopedic consultation. Plan for the OR in AM. N.p.o. after midnight placed by surgical team. Antibiotics to be started as per ID team. For now on oral linezolid as patient does not have an IV access. Plan for midline placement and then switch over to IV vancomycin. Echocardiogram ordered to rule out possible endocarditis. Patient is at high risk given history of drug abuse. Overall patient would need at least 6 weeks of IV antibiotics after first negative blood cultures for management of discitis/osteomyelitis and epidural abscess. Continue with home dose of methadone. Add Dilaudid 0.5 mg every 2 hourly IV as needed. Tramadol 100 mg every 6 hourly standing. (2) Hepatitis C: Appreciate ID recommendations. HIV negative. Liver ultrasound appreciated. Plan for treatment as an outpatient. (3) Gram-positive bacteremia: (4) Major depressive disorder, recurrent severe without psychotic features: (5) History of substance abuse: (6) Methadone dependence: (7) Chronic pain: (8) Staphylococcus aureus bacteremia: Plan Hypertension: Goal blood pressure less than 140/90 mmHg. For now continue with home dose of clonidine 0.1 mg 3 times daily. Will uptitrate as per goal blood pressures for the next 24 hours. Full code Start on regular diet, n.p.o. after midnight SCDs for DVT prophylaxis, holding off on medical prophylaxis in case of OR tomorrow Famotidine for PUD prophylaxis. Discharge planning: Discussed in detail with patient at bedside. Patient will need prolonged IV antibiotic course given discitis and blood culture positive though given history of substance abuse patient is not appropriate to be sent home with PICC line for IV antibiotics. Patient would most likely need placement to SNF versus acute rehab versus swing bed versus LTAC. Patient is agreeable to would want to try at a local SNF. Case management alerted. Anticipate prolonged hospitalization for now given positive blood cultures and need for placement. Plan for the day: Follow-up blood cultures. So far positive for Staph aureus with concerns for MRSA. No surgical plan as per orthopedic team. Restart diet. Out of bed to chair. Echocardiogram results appreciated. Appreciate ID recommendations. Repeat blood cultures sent. We will follow-up blood cultures. Most likely will plan for 6 weeks of IV antibiotics after first negative blood cultures. Physical therapy. T SLO brace when up. Pain management with home dose of methadone, Dilaudid 0.5 every 6 hours as needed. Mild hyponatremia today most likely in setting of multiple opiates. Discontinue IV fluids. Continue with oral regular diet. Repeat sodium levels in AM. If continues to be low will add oral salt tablets. Attestations Medical Necessity Statement*: Requires further hospitalization for management of Staphylococcus aureus bacteremia, vertebral osteomyelitis and discitis by safe discharge planning and outpatient antibiotics are sought. Diagnoses Acute osteomyelitis of lumbar spine M46.26 Hepatitis C B19.20 Gram-positive bacteremia R78.81 Major depressive disorder, recurrent severe without psychotic features F33.2 History of substance abuse F19.11 Methadone dependence F11.20 Chronic pain G89.29 Staphylococcus aureus bacteremia R78.81; B95.61
[2023-08-05 13:56] LABS: Vancomycin Trough 15.5 ug/mL (10-15)
--- NOTE | 2023-08-05 14:08 | PC.NURSE ---
vancomycin trough of 15.5 called to pharmacy. March hang 1400 dose.
[2023-08-05] MEDS: vancomycin 1,250 MG/250 ML PIGGYBACK 150 MG IV ×2 (14:24→22:29)
--- NOTE | 2023-08-05 14:32 | P.PN_ITS ---
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: Infectious disease progress note. Blood culture now identified as MRSA. Patient is appropriately on IV vancomycin. Plans for surgical intervention have been deferred for now per review of orthopedics note. Echocardiogram without gross vegetations on TTE. Medications: Reviewed: Yes Vitals/I&O/Wt Last Vital Signs Temp 97.8 F 08/05/23 11:39 Pulse 67 08/05/23 11:39 Resp 16 08/05/23 14:31 BP 150/83 08/05/23 11:39 Pulse Ox 94 08/05/23 11:39 O2 Del Method Room Air 08/05/23 11:39 08/04/23 08/05/23 08/05/23 22:59 06:59 14:59 Intake Total 490 / 1490 250 / 1740 1850 / 1850 Output Total 500 / 500 800 / 1300 Balance -10 / 990 -550 / 440 1850 / 1850 Weight last 48 hrs Weight 81.647 kg Weight 81.647 kg Physical Exam Narrative: General: No acute distress, AO x3 HEENT: PERRLA, pupils bilaterally equal and reactive, pallors not present Chest: Normal vesicular breath sounds, no added sounds, equal good air entry bilaterally CVS: S1-S2 regular, no murmurs, no tachycardia, no gallops, no rubs Abdomen: Soft, nontender, no organomegaly, bowel sounds present Data 08/05/23 05:10 08/05/23 05:10 Micro: Microbiology 08/03/23 07:09 Blood Culture - Preliminary Blood Staphylococcus aureus 08/03/23 07:18 Blood Culture - Preliminary Blood Staphylococcus aureus 08/05/23 05:10 Blood Culture - Preliminary Blood SPECIMEN COLLECTED 08/05/23 05:10 Blood Culture - Preliminary Blood SPECIMEN COLLECTED 08/03/23 17:42 MRSA Culture - Final Nose A&P Assessment and plan (1) Acute osteomyelitis of lumbar spine: Patient admitted with osteomyelitis of the lumbar spine. Blood culture from August 03 is positive for MRSA. Susceptibilities pending Continue IV vancomycin Thus far cultures from August 05 are negative to date Okay to continue with midline for now given no other IV access available, with plan to replace it with a definitive PICC once blood cultures have cleared. Anticipate treatment for at least 6 weeks from time of clearance Echocardiogram TTE grossly without any vegetations will follow (2) Hepatitis C: Hepatitis C antibody: Reactive from February 16, 2023 Hepatitis C RNA: LOC 6.4 from February 16, 2023, repeat pending Hep C genotype: Pending Hep B surface antigen: Nonreactive from January 2023 Hep B surface antibody: 28.1 Hep B core antibody: Reactive from January 2023 HIV-1 2 antigen antibody: Nonreactive from August 04, 2023 AST ALT: 15, 18 Liver ultrasound : No signs of cirrhosis currently Anticipate starting [place] as outpatient shortly after discharge. Medication not currently available on inpatient formulary. Attestations 2 Medical Necessity Statement*: Continued need of IV antibiotics, MRSA bacteremia, lumbar spine osteomyelitis, will need prolonged IV antibiotics of at least 6 weeks duration Coding Level of Care Code Acute Code for Chg Fwd Moderate MDM includes number and complexity of problems actively addressed during encounter, amount and/or complexity of data reviewed/ordered and described risk of complication, morbidity or mortality of management as documented Diagnoses Acute osteomyelitis of lumbar spine M46.26 Hepatitis C B19.20
[2023-08-06] VITALS (17 sets, daily range): BP systolic 125–161; BP diastolic 80–95; PULSE 72–89; RESP 15–18; TEMP 36.6–36.8; O2SAT 95–97
[2023-08-06] MEDS: TRAMadol 50 mg Tablet 100 MG PO ×3 (00:03→13:22)
[2023-08-06] MEDS: HYDROmorphone 1 mg/mL INJ 1 mL 0.5 MG IVP ×5 (04:04→23:46)
[2023-08-06] MEDS: methadone 10 mg Tablet 40 MG PO (05:52)
[2023-08-06] MEDS: vancomycin 1,250 MG/250 ML PIGGYBACK 150 MG IV ×2 (05:56→21:59)
[2023-08-06] MEDS: gabapentin 300 mg Capsule PO ×3 (08:52→20:34)
[2023-08-06] MEDS: levETIRAcetam 500 mg Tablet 250 MG PO ×2 (08:52→17:01)
[2023-08-06] MEDS: amlodipine 10 mg Tablet PO (08:52)
[2023-08-06] MEDS: methylphenidate 10 mg Tablet 20 MG PO ×2 (08:52→17:01)
[2023-08-06] MEDS: cloNIDine 0.1 mg Tablet PO ×3 (08:52→20:34)
[2023-08-06] MEDS: famotidine 20 mg Tablet PO ×2 (08:53→17:01)
--- NOTE | 2023-08-06 13:37 | PM.PN ---
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: No acute events overnight. Patient has remained hemodynamically stable and afebrile. Continues to complain of back pain. Could not work with physical therapy yesterday because of back pain. Medications: Reviewed: Yes Vitals/I&O/Wt Last Vital Signs Temp 97.9 F 08/06/23 11:25 Pulse 82 08/06/23 11:25 Resp 15 08/06/23 13:36 BP 147/90 08/06/23 11:25 Pulse Ox 97 08/06/23 11:25 O2 Del Method Room Air 08/06/23 11:25 08/05/23 08/06/23 08/06/23 22:59 06:59 14:59 Intake Total 430 / 2280 250 / 2530 490 / 490 Output Total 1300 / 1300 500 / 1800 Balance -870 / 980 -250 / 730 490 / 490 Weight last 48 hrs Weight 81.647 kg Physical Exam Narrative: EXAM NARRATIVE: General: No acute distress, AO x3 HEENT: PERRLA, pupils bilaterally equal and reactive Chest: equal good air entry bilaterally, no more fine basal crackles CVS: S1-S2 regular, no murmurs, no tachycardia, no gallops, no rubs Abdomen: Soft, nontender, no organomegaly, bowel sounds present, morbidly obese Neuro: No focal deficits, no facial deformity, AO x3, lower limb power could not be assessed because of back pain. Straight leg test positive. Data 08/05/23 05:10 08/05/23 05:10 Micro: Microbiology 08/03/23 07:18 Blood Culture - Preliminary Blood Methicillin Resis Staph Aureus 08/05/23 05:10 Blood Culture - Preliminary Blood NEGATIVE TO DATE 08/05/23 05:10 Blood Culture - Preliminary Blood NEGATIVE TO DATE 08/03/23 07:09 Blood Culture - Preliminary Blood Staphylococcus aureus A&P Assessment and plan (1) MRSA bacteremia: (2) Acute osteomyelitis of lumbar spine: Patient admitted with osteomyelitis of the lumbar spine. Blood culture growing MRSA from admission. Sensitivities appreciated. 08/05 so far negative. Appreciate orthopedic and ID recommendations. Not a surgical candidate as per orthopedics. Echocardiogram negative for vegetation. Patient has remained hemodynamically stable and afebrile. Continue with vancomycin as per ID recommendations for now. Target trough levels between 15-20. Continue to follow-up blood cultures from 08/05. If continues to remain negative plan for PICC line placement for prolonged 6 weeks course of IV antibiotics. Out of bed to chair. T SLO brace when up. Continue with home dose of methadone. Dilaudid 0.5 mg every 6 hourly as needed, [place] 5 mg every 4 hourly as needed. (3) Hepatitis C: Appreciate ID recommendations. HIV negative. Liver ultrasound appreciated. Plan for treatment as an outpatient. (4) Major depressive disorder, recurrent severe without psychotic features: (5) History of substance abuse: (6) Methadone dependence: (7) Chronic pain: Plan Hypertension: Goal blood pressure less than 140/90 mmHg. Blood pressure is better controlled. Continue with clonidine 0.1 mg 3 times daily, amlodipine 10 mg daily. Full code Regular diet Heparin 5000 every 12 hourly Famotidine for PUD prophylaxis. Discharge planning: Discussed in detail with patient at bedside. Patient will need prolonged IV antibiotic course given discitis and blood culture positive though given history of substance abuse patient is not appropriate to be sent home with PICC line for IV antibiotics. Patient would most likely need placement to SNF versus acute rehab versus swing bed versus LTAC. Patient is agreeable to would want to try at a local SNF. Case management alerted. Anticipate prolonged hospitalization for now given positive blood cultures and need for placement. Attestations Medical Necessity Statement*: Requires further hospitalization for management of MRSA bacteremia in setting of discitis while outpatient antibiotics and clearance of blood culture is awaited Diagnoses MRSA bacteremia R78.81; B95.62 Acute osteomyelitis of lumbar spine M46.26 Hepatitis C B19.20 Major depressive disorder, recurrent severe without psychotic features F33.2 History of substance abuse F19.11 Methadone dependence F11.20 Chronic pain G89.29
[2023-08-06] MEDS: heparin 5,000 unit/mL INJ 1 mL 5000 UNIT SUBCUT (14:41)
[2023-08-06] MEDS: vancomycin 1,250 MG/250 ML PIGGYBACK 250 MG IV (14:42)
[2023-08-06 14:50] LABS: Alanine Aminotransferase 18 U/L (0-41); Albumin Level 3.6 g/dL (3.5-5.2); Alkaline Phosphatase 104 U/L (40-130); Aspartate Amino Transferase 25 U/L (0-40); Blood Urea Nitrogen 14 mg/dL (6-20); Calcium 9.1 mg/dL (8.5-10.5); Carbon Dioxide 24 mmol/L (22-29); Chloride 91 mmol/L (98-107); Glomerular Filtration Rate 143.2 mL/min (90-130); Glucose 87 mg/dL (65-115); Osmolality Calculated 270 mOsm/kg (285-295); Sodium 130 mmol/L (136-145); Total Bilirubin 0.5 mg/dL (0.15-1.2); Total Protein 7.6 g/dL (6.6-8.7)
[2023-08-06 14:55] LABS: Anion Gap 19.5 (5-19); Potassium 4.5 mmol/L (3.5-5.1)
[2023-08-06] MEDS: HYDROcodone-acetaminophen 5-325 mg Tablet 1 TAB PO ×2 (15:33→19:49)
[2023-08-06 15:34] LABS: HEP C RNA Viral Load Quant 1440000 IU/mL (NOT DETECTED); HEP C RNA Viral Load Quant 6.16 Log IU/mL (NOT DETECTED)
[2023-08-06] MEDS: cyclobenzaprine 10 mg Tablet PO (17:01)
[2023-08-06] MEDS: ondansetron 2 mg/ML SDV 2 mL 4 MG IVP (18:41)
[2023-08-07] VITALS (14 sets, daily range): BP systolic 126–150; BP diastolic 80–93; PULSE 73–92; RESP 16–18; TEMP 36.7–36.9; O2SAT 94–96; BMI 24.1
[2023-08-07] MEDS: heparin 5,000 unit/mL INJ 1 mL 5000 UNIT SUBCUT ×2 (01:13→14:16)
[2023-08-07] MEDS: vancomycin 1,250 MG/250 ML PIGGYBACK 150 MG IV (05:18)
[2023-08-07 05:19] LABS: Basophils % 0.3 %; Eosinophils # 0.2 10^3/uL (0.0-0.8); Eosinophils % 1.8 %; Hematocrit 39.7 % (37-53); Lymphocytes # 1.4 10^3/uL (0.8-4.8); Lymphocytes % 12.3 %; Mean Corpuscular HGB Conc 32.2 g/dL (30-55); Mean Corpuscular Hemoglobin 24.2 pg (27-33); Mean Corpuscular Volume 75.2 fl (82-101); Mean Platelet Volume 8.3 fL (7.4-10.4); Monocytes # 0.7 10^3/uL (0.2-0.9); Monocytes % 6.4 %; Neutrophils # 9.11 10^3/uL (1.8-7.7); Neutrophils % 78.8 %; Nucleated Red Blood Cells % 0 %; Platelet Count 423 10^3/cmm (157-399); Red Blood Count 5.28 10^6/uL (3.85-5.65); Red Cell Distribution Width 13.2 % (12.1-15.1); White Blood Count 11.56 10^3/uL (3.29-11.43)
[2023-08-07] MEDS: ondansetron 2 mg/ML SDV 2 mL 4 MG IVP (05:29)
[2023-08-07] MEDS: methadone 10 mg Tablet 40 MG PO (05:40)
[2023-08-07 05:44] LABS: Alanine Aminotransferase 22 U/L (0-41); Albumin Level 3.6 g/dL (3.5-5.2); Alkaline Phosphatase 109 U/L (40-130); Anion Gap 15.2 (5-19); Aspartate Amino Transferase 24 U/L (0-40); Blood Urea Nitrogen 16 mg/dL (6-20); Calcium 9.3 mg/dL (8.5-10.5); Carbon Dioxide 26 mmol/L (22-29); Chloride 94 mmol/L (98-107); Globulin 4.7 g/dL (1.3-4.6); Glomerular Filtration Rate 143.2 mL/min (90-130); Glucose 107 mg/dL (65-115); Osmolality Calculated 274 mOsm/kg (285-295); Potassium 4.2 mmol/L (3.5-5.1); Sodium 131 mmol/L (136-145); Total Bilirubin 0.4 mg/dL (0.15-1.2); Total Protein 8.3 g/dL (6.6-8.7)
[2023-08-07] MEDS: cyclobenzaprine 10 mg Tablet PO ×4 (05:44→21:16)
[2023-08-07] MEDS: gabapentin 300 mg Capsule PO ×3 (08:55→21:16)
[2023-08-07] MEDS: cloNIDine 0.1 mg Tablet PO ×3 (08:55→21:16)
[2023-08-07] MEDS: amlodipine 10 mg Tablet PO (08:55)
[2023-08-07] MEDS: methylphenidate 10 mg Tablet 20 MG PO ×2 (08:55→17:09)
[2023-08-07] MEDS: levETIRAcetam 500 mg Tablet 250 MG PO ×2 (08:55→17:09)
[2023-08-07] MEDS: famotidine 20 mg Tablet PO ×2 (08:55→17:10)
[2023-08-07] MEDS: HYDROcodone-acetaminophen 5-325 mg Tablet 1 TAB PO ×2 (08:56→14:25)
--- NOTE | 2023-08-07 09:04 | PC.NURSE ---
Nurse asked patient if he wanted a gown and pt declined and stated I have been changing into my own clothes . Nurse respected pts wishes.
[2023-08-07] MEDS: HYDROmorphone 1 mg/mL INJ 1 mL 0.5 MG IVP ×2 (10:15→17:15)
[2023-08-07 13:47] LABS: Vancomycin Trough 16.4 ug/mL (10-15)
--- NOTE | 2023-08-07 14:00 | PM.PN ---
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: No acute events overnight. Patient denies any nausea, vomiting, headache. States yesterday in the evening he was able to move around in the bed and sit up for a short while. He thinks his back is healing. Denies any nausea, vomiting, headache. Has remained hemodynamically stable and afebrile. Blood work appreciated for stable CBC and CMP. Medications: Reviewed: Yes Vitals/I&O/Wt Last Vital Signs Temp 98.0 F 08/07/23 11:10 Pulse 76 08/07/23 11:10 Resp 16 08/07/23 11:10 BP 148/82 08/07/23 11:10 Pulse Ox 96 08/07/23 11:10 O2 Del Method Room Air 08/07/23 11:10 08/06/23 08/07/23 08/07/23 22:59 06:59 14:59 Intake Total 370 / 860 250 / 1110 350 / 350 Output Total 725 / 1225 500 / 1725 Balance -355 / -365 -250 / -615 350 / 350 Weight last 48 hrs Weight 80.853 kg Weight 81.193 kg Physical Exam Narrative: EXAM NARRATIVE: General: No acute distress, AO x3 HEENT: PERRLA, pupils bilaterally equal and reactive Chest: equal good air entry bilaterally, no more fine basal crackles CVS: S1-S2 regular, no murmurs, no tachycardia, no gallops, no rubs Abdomen: Soft, nontender, no organomegaly, bowel sounds present, morbidly obese Neuro: No focal deficits, no facial deformity, AO x3, lower limb power could not be assessed because of back pain. Straight leg test positive. Data 08/07/23 04:55 08/07/23 04:55 Micro: Microbiology 08/03/23 07:18 Blood Culture - Preliminary Blood Methicillin Resis Staph Aureus A&P Assessment and plan (1) MRSA bacteremia: (2) Acute osteomyelitis of lumbar spine: Patient admitted with osteomyelitis of the lumbar spine. Blood culture growing MRSA from admission. Sensitivities appreciated. 08/05 so far negative. Appreciate orthopedic and ID recommendations. Not a surgical candidate as per orthopedics. Echocardiogram negative for vegetation. Patient has remained hemodynamically stable and afebrile. Continue with vancomycin as per ID recommendations for now. Target trough levels between 15-20. Continue to follow-up blood cultures from 08/05. If continues to remain negative plan for PICC line placement for prolonged 6 weeks course of IV antibiotics. Out of bed to chair. T SLO brace when up. Continue with home dose of methadone. Dilaudid 0.5 mg every 6 hourly as needed, [place] 5 mg every 4 hourly as needed. (3) Hepatitis C: Appreciate ID recommendations. HIV negative. Liver ultrasound appreciated. Plan for treatment as an outpatient. (4) Major depressive disorder, recurrent severe without psychotic features: (5) History of substance abuse: (6) Methadone dependence: (7) Chronic pain: Plan Hypertension: Goal blood pressure less than 140/90 mmHg. Blood pressure is better controlled. Continue with clonidine 0.1 mg 3 times daily, amlodipine 10 mg daily. Full code Regular diet Heparin 5000 every 12 hourly Famotidine for PUD prophylaxis. Discharge planning: Discussed in detail with patient at bedside. Patient will need prolonged IV antibiotic course given discitis and blood culture positive though given history of substance abuse patient is not appropriate to be sent home with PICC line for IV antibiotics. Patient would most likely need placement to SNF versus acute rehab versus swing bed versus LTAC. Patient is agreeable to would want to try at a local SNF. Case management alerted. Anticipate prolonged hospitalization for now given positive blood cultures and need for placement. Plan for the day: Follow-up blood cultures sent on 08/05. For now continue with vancomycin with trough between 15-20. If blood cultures from 08/05 remain negative we will plan for PICC line placement on Thursday. Continue pain medications with methadone 40 mg daily, [place] 1 tablet every 4 hour as needed, Dilaudid 0.5 every 6 hours as needed. Change Flexeril to 3 times daily from as needed Out of bed to chair, T SLO brace when out of bed. Possible discharge to select once medically appropriate and PICC line placed. Patient has been declined by multiple supplements. LTAC for now agreeable. Patient is also agreeable for LTAC placement. Attestations Medical Necessity Statement*: Requires further hospitalization for management of MRSA bacteremia in setting of vertebral osteomyelitis/discitis while safe discharge planning and outpatient antibiotics. Diagnoses MRSA bacteremia R78.81; B95.62 Acute osteomyelitis of lumbar spine M46.26 Hepatitis C B19.20 Major depressive disorder, recurrent severe without psychotic features F33.2 History of substance abuse F19.11 Methadone dependence F11.20 Chronic pain G89.29
[2023-08-07] MEDS: vancomycin 1,250 MG/250 ML PIGGYBACK 250 MG IV ×2 (14:19→21:18)
--- NOTE | 2023-08-07 23:11 | PC.NURSE ---
Offered PRN pain medications to pt for pain of 6.5/10. Pt declined, stated he would like to wait until he feels like he really needs it. Educated pt that pain meds are available and staying on top of pain control can help prevent severe pain later. Pt verbalized understanding.
[2023-08-08] VITALS (16 sets, daily range): BP systolic 109–145; BP diastolic 73–87; PULSE 67–89; RESP 15–19; TEMP 36.4–37.1; O2SAT 94–97; BMI 3475.9
[2023-08-08] MEDS: HYDROmorphone 1 mg/mL INJ 1 mL 0.5 MG IVP ×3 (03:10→20:12)
[2023-08-08] MEDS: heparin 5,000 unit/mL INJ 1 mL 5000 UNIT SUBCUT ×2 (03:10→13:49)
[2023-08-08 05:54] LABS: Basophils # 0.1 10^3/uL (0.0-0.1); Basophils % 0.5 %; Eosinophils # 0.3 10^3/uL (0.0-0.8); Eosinophils % 2.5 %; Hematocrit 41.1 % (37-53); Lymphocytes # 1.5 10^3/uL (0.8-4.8); Lymphocytes % 13.5 %; Mean Corpuscular HGB Conc 31.4 g/dL (30-55); Mean Corpuscular Volume 76.5 fl (82-101); Mean Platelet Volume 8.4 fL (7.4-10.4); Monocytes # 0.8 10^3/uL (0.2-0.9); Monocytes % 7.5 %; Neutrophils # 8.38 10^3/uL (1.8-7.7); Neutrophils % 75.4 %; Nucleated Red Blood Cells % 0 %; Platelet Count 420 10^3/cmm (157-399); Red Blood Count 5.37 10^6/uL (3.85-5.65); Red Cell Distribution Width 13.3 % (12.1-15.1); White Blood Count 11.13 10^3/uL (3.29-11.43)
[2023-08-08] MEDS: methadone 10 mg Tablet 40 MG PO (06:07)
[2023-08-08] MEDS: vancomycin 1,250 MG/250 ML PIGGYBACK 250 MG IV ×3 (06:08→22:13)
[2023-08-08 06:22] LABS: Alanine Aminotransferase 23 U/L (0-41); Albumin Level 3.4 g/dL (3.5-5.2); Alkaline Phosphatase 107 U/L (40-130); Aspartate Amino Transferase 23 U/L (0-40); Blood Urea Nitrogen 18 mg/dL (6-20); Carbon Dioxide 25 mmol/L (22-29); Chloride 95 mmol/L (98-107); Globulin 4.8 g/dL (1.3-4.6); Glomerular Filtration Rate 119.9 mL/min (90-130); Glucose 125 mg/dL (65-115); Osmolality Calculated 277 mOsm/kg (285-295); Sodium 132 mmol/L (136-145); Total Bilirubin 0.3 mg/dL (0.15-1.2); Total Protein 8.2 g/dL (6.6-8.7)
[2023-08-08] MEDS: cloNIDine 0.1 mg Tablet PO ×3 (08:27→20:12)
[2023-08-08] MEDS: amlodipine 10 mg Tablet PO (08:28)
[2023-08-08] MEDS: cyclobenzaprine 10 mg Tablet PO ×3 (08:28→20:12)
[2023-08-08] MEDS: famotidine 20 mg Tablet PO ×2 (08:28→17:48)
[2023-08-08] MEDS: gabapentin 300 mg Capsule PO ×3 (08:28→20:12)
[2023-08-08] MEDS: levETIRAcetam 500 mg Tablet 250 MG PO ×2 (08:28→17:48)
[2023-08-08] MEDS: methylphenidate 10 mg Tablet 20 MG PO ×2 (08:28→17:48)
[2023-08-08] MEDS: HYDROcodone-acetaminophen 5-325 mg Tablet 1 TAB PO ×2 (11:47→17:49)
--- NOTE | 2023-08-08 14:06 | P.PN_ITS ---
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: No acute concerns. Today morning patient lying comfortably in bed. States pain is better. Yesterday he was able to rule out out of bed and walk with a walker from bed to the restroom. States he thinks he is feeling and getting better. Denies any nausea, vomiting, headache. Has remained hemodynamically stable and afebrile in last 24 hours on room air. Blood work appreciated for stable CBC with continued thrombocytosis, stable CMP with sodium level of 132 Medications: Reviewed: Yes Vitals/I&O/Wt Last Vital Signs Temp 98.0 F 08/08/23 11:33 Pulse 67 08/08/23 11:33 Resp 18 08/08/23 13:29 BP 125/84 08/08/23 11:33 Pulse Ox 97 08/08/23 11:33 O2 Del Method Room Air 08/08/23 11:33 08/07/23 08/08/23 08/08/23 22:59 06:59 14:59 Intake Total 850 / 1200 550 / 1750 490 / 490 Output Total 420 / 420 450 / 870 550 / 550 Balance 430 / 780 100 / 880 -60 / -60 Weight last 48 hrs Weight 80.739 kg Weight 80.853 kg Physical Exam Narrative: EXAM NARRATIVE: General: No acute distress, AO x3 HEENT: PERRLA, pupils bilaterally equal and reactive Chest: equal good air entry bilaterally, no more fine basal crackles CVS: S1-S2 regular, no murmurs, no tachycardia, no gallops, no rubs Abdomen: Soft, nontender, no organomegaly, bowel sounds present, morbidly obese Neuro: No focal deficits, no facial deformity, AO x3, lower limb power could not be assessed because of back pain. Straight leg test positive. Data 08/08/23 05:31 08/08/23 05:31 A&P Assessment and plan (1) MRSA bacteremia: (2) Acute osteomyelitis of lumbar spine: Patient admitted with osteomyelitis of the lumbar spine. Blood culture growing MRSA from admission. Sensitivities appreciated. 08/05 so far negative. Appreciate orthopedic and ID recommendations. Not a surgical candidate as per orthopedics. Echocardiogram negative for vegetation. Patient has remained hemodynamically stable and afebrile. Continue with vancomycin as per ID recommendations for now. Target trough levels between 15-20. Continue to follow-up blood cultures from 08/05. If continues to remain negative plan for PICC line placement for prolonged 6 weeks course of IV antibiotics. Out of bed to chair. T SLO brace when up. Continue with home dose of methadone. Dilaudid 0.5 mg every 6 hourly as needed, [place] 5 mg every 4 hourly as needed. (3) Hepatitis C: Appreciate ID recommendations. HIV negative. Liver ultrasound appreciated. Plan for treatment as an outpatient. (4) Major depressive disorder, recurrent severe without psychotic features: (5) History of substance abuse: (6) Methadone dependence: (7) Chronic pain: Plan Hypertension: Goal blood pressure less than 140/90 mmHg. Blood pressure is be tter controlled. Continue with clonidine 0.1 mg 3 times daily, amlodipine 10 mg daily. Full code Regular diet Heparin 5000 every 12 hourly Famotidine for PUD prophylaxis. Discharge planning: Discussed in detail with patient at bedside. Patient will need prolonged IV antibiotic course given discitis and blood culture positive though given history of substance abuse patient is not appropriate to be sent home with PICC line for IV antibiotics. Patient would most likely need placement to SNF versus acute rehab versus swing bed versus LTAC. Patient is agreeable to would want to try at a local SNF. Case management alerted. Anticipate prolonged hospitalization for now given positive blood cultures and need for placement. Plan for the day: Blood culture from admission growing MRSA. Blood culture from 08/05 so far negative. Continue with IV vancomycin. Appreciate surgical and ID recommendations. Out of bed to chair with physical therapy and T SLO brace. Continue with current pain medication including methadone, [place] and Dilaudid as needed. Continue with Flexeril scheduled. Monitor renal functions. If blood cultures from 08/05 remain negative on Thursday we will plan for PICC line placement. Patient has been accepted at [facility] and awaiting prior authorization. Plan to discharge to [facility] with PICC line for further IV antibiotic treatment and rehabilitation for 6 weeks course. Attestations Medical Necessity Statement*: Requires further hospitalization for management of MRSA bacteremia in setting of vertebral discitis and osteomyelitis while outpatient therapy and safe discharge planning is resolved. Diagnoses MRSA bacteremia R78.81; B95.62 Acute osteomyelitis of lumbar spine M46.26 Hepatitis C B19.20 Major depressive disorder, recurrent severe without psychotic features F33.2 History of substance abuse F19.11 Methadone dependence F11.20 Chronic pain G89.29
--- NOTE | 2023-08-08 17:11 | PM.PN ---
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: Infectious disease progress note Reports that pain is slightly better but still requires significant pain medication. He is afebrile, hemodynamically stable. Blood culture and follow-up is currently negative to date. Medications: Reviewed: Yes Vitals/I&O/Wt Last Vital Signs Temp 97.5 F L 08/08/23 16:00 Pulse 85 08/08/23 16:00 Resp 18 08/08/23 16:00 BP 109/79 08/08/23 16:00 Pulse Ox 95 08/08/23 16:00 O2 Del Method Room Air 08/08/23 16:00 08/08/23 08/08/23 08/08/23 06:59 14:59 22:59 Intake Total 550 / 1750 490 / 490 250 / 740 Output Total 450 / 870 550 / 550 Balance 100 / 880 -60 / -60 250 / 190 Weight last 48 hrs Weight 80.739 kg Weight 80.853 kg Physical Exam Narrative: General: No acute distress, AO x3 HEENT: PERRLA, pupils bilaterally equal and reactive, pallors not present Chest: Normal vesicular breath sounds, no added sounds, equal good air entry bilaterally CVS: S1-S2 regular, no murmurs, no tachycardia, no gallops, no rubs Abdomen: Soft, nontender, no organomegaly, bowel sounds present Data 08/08/23 05:31 08/08/23 05:31 A&P Assessment and plan (1) MRSA bacteremia: MRSA bacteremia resulting in osteomyelitis of the lumbar spine the likely sequence of events. MRSA bacteremia related to history of IV drug use versus recent skin and soft tissue infection involving his foot the latter has healed currently. (2) Acute osteomyelitis of lumbar spine: Patient admitted with osteomyelitis of the lumbar spine. Blood culture from August 03 is positive for MRSA. Follow-up blood cultures from August 05 this point negative to date Continue IV vancomycin with goal trough of 15-20 Okay to continue with midline for now given no other IV access available, with plan to replace it with a definitive PICC on Thursday (today is thursday) Anticipate treatment for at least 6 weeks from time of clearance, but eventually depending on clinical and radiological course in 6 weeks from now. Echocardiogram TTE grossly without any vegetations, defer MEME is unlikely to change management expert (3) Hepatitis C: Hepatitis C antibody: Reactive from February 16, 2023 Hepatitis C RNA: LOC 6.4 from February 16, 2023, repeat pending Hep C genotype: Pending Hep B surface antigen: Nonreactive from January 2023 Hep B surface antibody: 28.1 Hep B core antibody: Reactive from January 2023 HIV-1 2 antigen antibody: Nonreactive from August 04, 2023 AST ALT: 15, 18 Liver ultrasound : No signs of cirrhosis currently Anticipate starting Mavyret as outpatient currently monitoring for hep B reactivation. Medication not currently available on inpatient formulary. Attestations Medical Necessity Statement*: Per admitting physician Coding Level of Care Code Acute Code for g Fwd Diagnoses MRSA bacteremia R78.81; B95.62 Acute osteomyelitis of lumbar spine M46.26 Hepatitis C B19.20
[2023-08-08] MEDS: bisacodyl 5 mg Tablet 10 MG PO (17:49)
[2023-08-09] VITALS (14 sets, daily range): BP systolic 125–147; BP diastolic 74–91; PULSE 70–85; RESP 16–18; TEMP 36.4–36.9; O2SAT 96–99; BMI 24.1
[2023-08-09] MEDS: heparin 5,000 unit/mL INJ 1 mL 5000 UNIT SUBCUT ×2 (02:11→13:39)
[2023-08-09] MEDS: HYDROcodone-acetaminophen 5-325 mg Tablet 1 TAB PO ×4 (02:11→22:23)
[2023-08-09 04:49] LABS: Basophils % 0.3 %; Eosinophils # 0.4 10^3/uL (0.0-0.8); Eosinophils % 3.2 %; Hematocrit 40.2 % (37-53); Lymphocytes # 1.7 10^3/uL (0.8-4.8); Lymphocytes % 14.8 %; Mean Corpuscular HGB Conc 31.6 g/dL (30-55); Mean Platelet Volume 7.9 fL (7.4-10.4); Monocytes # 0.7 10^3/uL (0.2-0.9); Monocytes % 6.3 %; Neutrophils # 8.62 10^3/uL (1.8-7.7); Nucleated Red Blood Cells % 0 %; Platelet Count 387 10^3/cmm (157-399); Red Blood Count 5.29 10^6/uL (3.85-5.65); Red Cell Distribution Width 13.2 % (12.1-15.1)
[2023-08-09 05:08] LABS: Alanine Aminotransferase 23 U/L (0-41); Albumin Level 3.6 g/dL (3.5-5.2); Alkaline Phosphatase 123 U/L (40-130); Anion Gap 14.3 (5-19); Aspartate Amino Transferase 24 U/L (0-40); Blood Urea Nitrogen 17 mg/dL (6-20); Calcium 9.2 mg/dL (8.5-10.5); Carbon Dioxide 27 mmol/L (22-29); Chloride 96 mmol/L (98-107); Globulin 3.9 g/dL (1.3-4.6); Glomerular Filtration Rate 143.2 mL/min (90-130); Glucose 103 mg/dL (65-115); Osmolality Calculated 278 mOsm/kg (285-295); Potassium 4.3 mmol/L (3.5-5.1); Sodium 133 mmol/L (136-145); Total Bilirubin 0.3 mg/dL (0.15-1.2); Total Protein 7.5 g/dL (6.6-8.7)
[2023-08-09] MEDS: methadone 10 mg Tablet 40 MG PO (06:04)
[2023-08-09] MEDS: vancomycin 1,250 MG/250 ML PIGGYBACK 250 MG IV ×3 (06:05→22:24)
[2023-08-09] MEDS: methylphenidate 10 mg Tablet 20 MG PO ×2 (08:20→17:15)
[2023-08-09] MEDS: gabapentin 300 mg Capsule PO ×3 (08:20→20:52)
[2023-08-09] MEDS: levETIRAcetam 500 mg Tablet 250 MG PO ×2 (08:20→17:15)
[2023-08-09] MEDS: cyclobenzaprine 10 mg Tablet PO ×3 (08:20→20:50)
[2023-08-09] MEDS: cloNIDine 0.1 mg Tablet PO ×3 (08:20→20:50)
[2023-08-09] MEDS: famotidine 20 mg Tablet PO ×2 (08:20→17:15)
[2023-08-09] MEDS: amlodipine 10 mg Tablet PO (08:20)
[2023-08-09] MEDS: HYDROmorphone 1 mg/mL INJ 1 mL 0.5 MG IVP ×3 (11:31→18:10)
[2023-08-09] MEDS: bisacodyl 5 mg Tablet 10 MG PO (14:07)
--- NOTE | 2023-08-09 14:46 | P.PN_ITS ---
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: No acute events overnight. Has been medically stable and afebrile. Working with physical therapy. Oxygen fracture pain medication around physical therapy. Medications: Reviewed: Yes Vitals/I&O/Wt Last Vital Signs Temp 97.5 F L 08/09/23 11:27 Pulse 72 08/09/23 11:27 Resp 17 08/09/23 13:34 BP 142/89 08/09/23 14:07 Pulse Ox 97 08/09/23 11:27 O2 Del Method Room Air 08/09/23 11:27 08/08/23 08/09/23 08/09/23 22:59 06:59 14:59 Intake Total 610 / 1100 250 / 1350 970 / 970 Output Total 1725 / 2275 525 / 525 Balance -1115 / -1175 250 / -925 445 / 445 Weight last 48 hrs Weight 80.739 kg Weight 80.739 kg Physical Exam Narrative: EXAM NARRATIVE: General: No acute distress, AO x3 HEENT: PERRLA, pupils bilaterally equal and reactive Chest: equal good air entry bilaterally, no more fine basal crackles CVS: S1-S2 regular, no murmurs, no tachycardia, no gallops, no rubs Abdomen: Soft, nontender, no organomegaly, bowel sounds present, morbidly obese Neuro: No focal deficits, no facial deformity, AO x3, lower limb power could not be assessed because of back pain. Straight leg test positive. Data 08/09/23 04:40 08/09/23 04:40 A&P Assessment and plan (1) MRSA bacteremia: (2) Acute osteomyelitis of lumbar spine: Patient admitted with osteomyelitis of the lumbar spine. Blood culture growing MRSA from admission. Sensitivities appreciated. 08/05 so far negative. Appreciate orthopedic and ID recommendations. Not a surgical candidate as per orthopedics. Echocardiogram negative for vegetation. Patient has remained hemodynamically stable and afebrile. Continue with vancomycin as per ID recommendations for now. Target trough levels between 15-20. Continue to follow-up blood cultures from 08/05. If continues to remain nega tive plan for PICC line placement for prolonged 6 weeks course of IV antibiotics. Out of bed to chair. T SLO brace when up. Continue with home dose of methadone. Dilaudid 0.5 mg every 6 hourly as needed, [place] 5 mg every 4 hourly as needed. (3) Hepatitis C: Appreciate ID recommendations. HIV negative. Liver ultrasound appreciated. Plan for treatment as an outpatient. (4) Major depressive disorder, recurrent severe without psychotic features: (5) History of substance abuse: (6) Methadone dependence: (7) Chronic pain: Plan Hypertension: Goal blood pressure less than 140/90 mmHg. Blood pressure is better controlled. Continue with clonidine 0.1 mg 3 times daily, amlodipine 10 mg daily. Full code Regular diet Heparin 5000 every 12 hourly Famotidine for PUD prophylaxis. Discharge planning: Discussed in detail with patient at bedside. Patient will need prolonged IV antibiotic course given discitis and blood culture positive though given history of substance abuse patient is not appropriate to be sent home with PICC line for IV antibiotics. Patient would most likely need placement to SNF versus acute rehab versus swing bed versus LTAC. Patient is agreeable to would want to try at a local SNF. Case management alerted. Anticipate prolonged hospitalization for now given positive blood cultures and need for placement. Plan for the day: Blood culture from 08/05 over negative. Continue with current IV antibiotics giving Vanco trough between 15-20. Plan for PICC line placement in a.m. Continue with current pain medications. [facility] Awaiting authorization. Blood pressure well controlled. Continue with current dose of clonidine 0.1 3 times daily and amlodipine 10 mg oral daily. Attestations Medical Necessity Statement*: Requires further hospitalization for management of MRSA bacteremia in setting of vertebral osteomyelitis/discitis while outpatient antibiotics are set up and clearance of blood culture is awaited Diagnoses MRSA bacteremia R78.81; B95.62 Acute osteomyelitis of lumbar spine M46.26 Hepatitis C B19.20 Major depressive disorder, recurrent severe without psychotic features F33.2 History of substance abuse F19.11 Methadone dependence F11.20 Chronic pain G89.29
[2023-08-09] MEDS: magnesium hydroxide 30 mL UDC PO (18:09)
--- NOTE | 2023-08-09 22:19 | PC.NURSE ---
Pt complaining of severe pain, stating he feels as though he is not heard because none of the PRN pain medications are helping with his pain. Educated pt, encouraged position changing, activity, and non-pharmacological means of pain management; called Dr. Mei and received orders for toradol 30mg IVP once.
[2023-08-09] MEDS: ketorolac 30 mg/mL INJ IVP (22:23)
[2023-08-10] VITALS (14 sets, daily range): BP systolic 113–139; BP diastolic 74–90; PULSE 73–97; RESP 15–19; TEMP 36.4–37; O2SAT 96–98; BMI 24.1
[2023-08-10] MEDS: heparin 5,000 unit/mL INJ 1 mL 5000 UNIT SUBCUT ×2 (00:46→13:42)
[2023-08-10] MEDS: HYDROmorphone 1 mg/mL INJ 1 mL 0.5 MG IVP ×3 (00:46→18:00)
--- NOTE | 2023-08-10 02:04 | PC.NURSE ---
This nurse went to round on pt and provide pain management options. Provided pt with PRN dilaudid. Pt began grabbing at the sheet, stating that he can't grab these caps, and these marshmellows aren't coming apart, as well as stating I can't feel my fingers, . This was a change from previous behavior. The pt had an opened backpack at the end of the bed. This nurse saw a container of THC infused food inside the bag. The CREDIT SUPPORT SPECIALIST stated she saw a bag of THC infused food on the bedside table. This nurse notified charge nurse, called fun house operator, and called security. This nurse called and notified Dr. Mei at [phone]. Parties arrived at bedside and asked pt if he had been taking any substances not specifically prescribed during this hospital stay. Pt replied No, the doctors know everything I'm taking. territory supervisor then asked if the pt had any substances in the bag that staff were unaware of. Pt stated No, I don't. territory supervisor and security then confiscated bag with patient's consent. Items were inventoried, this is what was found: 1 nicotine vape 1 dab pen 2 containers of THC infused gummies 1 bag of THC infused chocolates 3 whole methadone bars 1 bottle of unlabelled mixed pills, found to have gabapentin, clonidine, keppra, and flexeril inside 1 bottle of methylphenidate containing one(1) pill 1 straw with powder residue inside One flexeril pill was dropped by charge nurse, witnessed charge nurse throw away the one dropped flexeril. territory supervisor Bhumika assisted this nurse with removing these items from the bag, placing them in a clear bag with an inventory label, patient label, and tamper tape. Patient consented to items being locked in [employer], acquired pt consent signature on inventory label. Placed backpack in patient belonging bag with patient label and stored bag at nurses station. All substances are locked in the [employer] system at this time.
--- NOTE | 2023-08-10 02:16 | PC.NURSE ---
Was called to bedside by pt care RN and prefitter doors. Per report, pt has been acting differently tonight compared to the prior shifts. Staff concerned that pt has been using a vape pen or other mind altering substances in his room. This RN spoke with pt regarding the use of prescribed and nonprescribed medications during hospitalization without consent of the physician. This nurse and security asked to search pt belongings and consent given. This nurse found a package of 10 mg THC edibles laying on bedside table. Per pt, they may have been placed there by his visitor earlier in the day. Multiple medications and contraband found in pt back pack. This nurse asked to hold bag at nurses station until discharge or someone can come remove it from property - pt gave verbal consent. Yeah, I dont care but your making this bigger than it is.
[2023-08-10 04:54] LABS: Basophils # 0.1 10^3/uL (0.0-0.1); Basophils % 0.5 %; Eosinophils # 0.5 10^3/uL (0.0-0.8); Eosinophils % 4.3 %; Hematocrit 38.5 % (37-53); Lymphocytes # 1.7 10^3/uL (0.8-4.8); Lymphocytes % 15.9 %; Mean Corpuscular HGB Conc 31.7 g/dL (30-55); Mean Corpuscular Hemoglobin 24.3 pg (27-33); Mean Corpuscular Volume 76.5 fl (82-101); Monocytes # 0.8 10^3/uL (0.2-0.9); Monocytes % 7.4 %; Neutrophils # 7.64 10^3/uL (1.8-7.7); Neutrophils % 71.5 %; Nucleated Red Blood Cells % 0 %; Platelet Count 411 10^3/cmm (157-399); Red Blood Count 5.03 10^6/uL (3.85-5.65); Red Cell Distribution Width 13.2 % (12.1-15.1); White Blood Count 10.68 10^3/uL (3.29-11.43)
[2023-08-10 05:16] LABS: Alanine Aminotransferase 23 U/L (0-41); Albumin Level 3.4 g/dL (3.5-5.2); Alkaline Phosphatase 102 U/L (40-130); Anion Gap 14.5 (5-19); Aspartate Amino Transferase 26 U/L (0-40); Blood Urea Nitrogen 23 mg/dL (6-20); Carbon Dioxide 26 mmol/L (22-29); Chloride 99 mmol/L (98-107); Globulin 4.3 g/dL (1.3-4.6); Glomerular Filtration Rate 143.2 mL/min (90-130); Glucose 99 mg/dL (65-115); Osmolality Calculated 284 mOsm/kg (285-295); Potassium 4.5 mmol/L (3.5-5.1); Sodium 135 mmol/L (136-145); Total Bilirubin 0.3 mg/dL (0.15-1.2); Total Protein 7.7 g/dL (6.6-8.7)
--- NOTE | 2023-08-10 05:48 | PC.NURSE ---
Pt became verbally aggressive after staff confiscated items from pt room. Pt refused vital signs and began screaming while speaking on the phone demanding that someone come pick him up and that he was ready to leave immediately. Pt stated he would not tolerate being here any longer. This nurse allowed the pt some time to cool off and then went back into the room. Pt was resting quietly in bed and allowed his labs to be drawn and vitals to be checked.
[2023-08-10] MEDS: methadone 10 mg Tablet 40 MG PO (05:50)
[2023-08-10] MEDS: vancomycin 1,250 MG/250 ML PIGGYBACK 250 MG IV ×3 (05:51→22:53)
--- NOTE | 2023-08-10 07:14 | PC.NURSE ---
This nurse went to administer scheduled methadone and vancomycin. Pt stated these are the last two medications he is willing to take, and that once these are done he needs staff to remove the midline so that he can leave. This nurse educated pt on some risks of leaving, pt stated he didn't care and that he needs to get out of here. This nurse gave scheduled meds and stated that the doctor would be informed of the pt's decision to leave and that forms would be prepared. Pt took medication and then threw his bottled drink at the wall after swallowing medication.
--- NOTE | 2023-08-10 08:01 | PC.NURSE ---
Refuses Offered patient the hydrocodone to help keep his pain undercontrol but patient refused.
[2023-08-10] MEDS: levETIRAcetam 500 mg Tablet 250 MG PO ×2 (08:50→17:36)
[2023-08-10] MEDS: cyclobenzaprine 10 mg Tablet PO ×3 (08:50→21:06)
[2023-08-10] MEDS: famotidine 20 mg Tablet PO ×2 (08:50→17:37)
[2023-08-10] MEDS: gabapentin 300 mg Capsule PO ×3 (08:50→21:06)
[2023-08-10] MEDS: cloNIDine 0.1 mg Tablet PO ×3 (08:50→21:05)
[2023-08-10] MEDS: methylphenidate 10 mg Tablet 20 MG PO ×2 (08:51→17:36)
[2023-08-10] MEDS: amlodipine 10 mg Tablet PO (08:51)
--- NOTE | 2023-08-10 09:00 | P.PN_ITS ---
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: Infectious disease progress note Chart reviewed and care plan discussed with hospitalist on 08.10.23. Afebrile, follow up blood cx clear, no acute interim events Picc line placed in right arm today Left arm midline d/c Continues to have back pain, had an extensive discussion with him over the weekend with regards to back pain. His back pain is related to osteomyelitis/discitis, L2 erosive changes. Discussed with him that with tereatmet of infection would xpect his back pain to improve, however the bony changes and inflammation may persist for longer and contribute to pain. Medications: Reviewed: Yes Vitals/I&O/Wt Last Vital Signs Temp 98 F 08/11/23 08:00 Pulse 75 08/11/23 08:00 Resp 17 08/11/23 08:00 BP 150/87 08/11/23 08:00 Pulse Ox 94 08/11/23 08:00 O2 Del Method Room Air 08/11/23 04:00 08/10/23 08/11/23 08/11/23 22:59 06:59 14:59 Intake Total 250 / 980 250 / 1230 250 / 250 Output Total 1725 / 1725 400 / 2125 400 / 400 Balance -1475 / -745 -150 / -895 -150 / -150 Weight last 48 hrs Weight 80.739 kg Weight 80.739 kg Physical Exam Narrative: NOt examined today, care plan discussed with primary attending Data 08/11/23 06:08 08/10/23 04:24 Micro: Microbiology 08/05/23 05:10 Blood Culture - Final Blood NO GROWTH AFTER 5 DAYS 08/05/23 05:10 Blood Culture - Final Blood NO GROWTH AFTER 5 DAYS [facility] [address] [place] [id number] AZUCENA LOPEZ, WOOD MILLING MACHINE TENDER NAME: Joby Jean LOC: [facility] U #: [id number] AGE/SX: 48/M ROOM: 277 RE08/03/[address]: Kennedy Cash MD : 1975 BED: 2 DI S: FAX #: STATUS: ADM IN TLOC: Spec #: [id number] Kathi: 09/04/23-0718 Status: COMP Req #: [id number] Recd: 08/03/[address]: Yonis Jacques DO Src: Blood SpDesc: Ordered: Bcult Procedure Result Verified Site Blood Culture Final 08/09/23-1540 2 OF 4 BOTTLES POSITIVE DIRECT GRAM STAIN: GRAM POSITIVE COCCI IN CLUSTERS IDENTIFICATION BY DIRECT PCR Detection of mecA indicates presence of Methicillin Resistant Staphylococcus spp. Organism 1 Methicillin Resis Staph Aureus Growth IN 2 BOTTLES Gram Stain Charge Charge for Gram Stain CRITICAL RESULT YES/NO: YES CRITICAL CALLED BY: JASON TO AND READ BACK BY: YAZMIN DATE: 08/04/23 TIME: 035 2ND CRITICAL RES YES/NO: YES 2ND CRITICAL CALLED BY: MACI DANG TO AND READ BACK BY: NACHO DATE: 08/05/23 2ND CRITICAL TIME: 1230 MRSA M.I.C. RX --------- ------ * Ampicillin >8 R * Ciprofloxacin >2 R * Clindamycin >4 R * Erythromycin >4 R * Gentamicin <=4 S * Levofloxacin >4 R * Linezolid 4 S * Oxacillin >2 R * Penicillin >8 R * Rifampin <=1 S * Tetracycline 8 I * Trimethoprim/Sulfamethoxazole <=0.5/9.5 S Vancomycin 2 S Daptomycin 1 S Other data: MRI L spine 08/03 MR/MR lumbar spine wo/w con [id number] IMPRESSION: Progression of L1-L2 discitis osteomyelitis, developing endplate irregularity increasing marrow edema and enhancement.? Concentric epidural enhancement and perhaps tiny pockets of epidural fluid causing local canal narrowing. MRI L spine 07/16 IMPRESSION: 1.? Mild compression of the superior plate L2 with diffuse edema extending into the L1-2 disc space. Additional edema in the inferior endplate of L1 with perivertebral soft tissue inflammation and thickening. Findings suspicious for discitis/osteomyelitis. Recommend correlation for infection. 2.? No significant retropulsion. Only mild loss of vertebral body height at L2. No epidural abscess. 3.? Erosive changes involving L2 anterior superior endplate better appreciated on the prior radiographs. A&P Assessment and plan (1) MRSA bacteremia: MRSA bacteremia resulting in osteomyelitis of the lumbar spine the likely sequence of events. MRSA bacteremia related to history of IV drug use versus recent skin and soft tissue infection involving his foot ; the latter has healed currently. (2) Acute osteomyelitis of lumbar spine: Patient admitted with osteomyelitis of the lumbar spine at L1-L2 level with e ndplate irregularity increasing marrow edema and enhancement. Blood culture from August 03 is positive for MRSA. F/up cx from 08/05 thus far negative to date. Presumably same organism causing osteomyelitis of back. Evaluated by spine surgery- no intervention recommended for now Plan to treat medically for now On treatment with IV vancomycin with goal trough of 15-20 Anticipate treatment for at least 6 weeks from time of clearance (08/05-09/16), but final abx course dependent on clinical and radiological course in 6 weeks from now. Echocardiogram TTE grossly without any vegetations, defer MEME as unlikely to filter changer Picc line placed 08/10/23 weekly labs with vancomycin trough, creatinine, crp to be monitored at LT where he is trasnitioning. F/up ID clinic on Sep 17 at 1PM. (3) Hepatitis C: Hepatitis C antibody: Reactive from February 16, 2023 Hepatitis C RNA: LOG 6.1 from 2022 Hep C genotype: 1a Hep B surface antigen: Nonreactive from January 2023 Hep B surface antibody: 28.1 Hep B core antibody: Reactive from January 2023 HIV-1 2 antigen antibody: Nonreactive from August 04, 2023 AST ALT: 08/04/23 Liver ultrasound : No signs of cirrhosis currently Anticipate starting Mavyret as outpatient . Medication not currently available on inpatient formulary, therefore deferred to outpatient treatment. Attestations Medical Necessity Statement*: per primary attending Coding Level of Care Code Acute Code for Chg Fwd Moderate MDM includes number and complexity of problems actively addressed during encounter, amount and/or complexity of data reviewed/ordered and described risk of complication, morbidity or mortality of management as documented Diagnoses MRSA bacteremia R78.81; B95.62 Acute osteomyelitis of lumbar spine M46.26 Hepatitis C B19.20
--- NOTE | 2023-08-10 10:06 | XR_ITS ---
WS: [id number] Exam: XR chest 1V portable [id number] Date/Time of Exam: 08/10/2023 10:06 AM Reason For Exam: Post PICC insertion Comparison 09/22/2022. A right-sided PICC line ends in the lower one third of the SVC in satisfactory position. The lungs are clear and fully expanded. Normal cardiomediastinal silhouette. Bony elements are intact. The LEFT costophrenic angle is out of the [id number]. IMPRESSION: 1. Right-sided PICC line in satisfactory position. No acute cardiopulmonary finding.
[2023-08-10] MEDS: HYDROcodone-acetaminophen 5-325 mg Tablet 1 TAB PO ×3 (10:22→21:06)
--- NOTE | 2023-08-10 10:45 | PC.NURSE ---
Single lumen PICC placed to right basilic vein. Referred to PICC nurse for PICC line due to need for buttermilk drier operator IV antibiotics. Pt had midline placed last week for poor peripheral access with plan to replace with PICC line today after cultures returned. Risks and benefits discussed with patient and patient advocate. Informed consent obtained from patient. Right arm assessed with right basilic vein noted at 4 mm, straight, and apparent best choice for placement. Using sterile technique and MST, right basilic vein accessed x 1 stick. Mid-arm circumference measured 10 cm from right AC 30 cm. Trimmed cath length 41 cm with 0 cm external length noted. Line secured with stat-lock. Insertion site covered with Biopatch and TSM. Midline to left upper arm dc'd with 8 cm noted and tip intact. Pressure held for approx 3 minutes until hemostasis obtained. Site clear without redness, swelling, or bleeding. Report given to bedside nurseJaci.
[2023-08-10] MEDS: nicotine 4 mg lozenge MUCOUS MEM (11:59)
[2023-08-10] MEDS: lidocaine 5% Patch 1 PATCH TOPICAL ×2 (12:26→21:06)
[2023-08-10] MEDS: nicotine 21 mg Patch 1 PATCH TRANSDERMA (13:42)
[2023-08-10 14:09] LABS: Hepatitis C Genotype RNA 1a
[2023-08-10] MEDS: magnesium hydroxide 30 mL UDC PO (14:38)
[2023-08-10] MEDS: metoclopramide 5 mg/mL SDV 2 mL IVP (17:37)
--- NOTE | 2023-08-10 21:33 | P.PN_ITS ---
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: He states has been having some pain in his back. Discussed with him regarding lidocaine patch, as well as with some concern for cravings due to smoking discussed nicotine supplementation. Later discussed again on second visit in the presence also of his friend. discussed also placement of PICC line, continuation of antibiotic treatment for vertebral osteomyelitis due to concern for MRSA infection, osteomyelitis, concern for possible local and/or distant spread of infection, potentially disa nazario and/or possibly life-threatening complications in case of interrupted treatment. Both agreeable and in satisfactionwith plan. All questions answered. Discussed lidocaine patch. Later on also with some muscle spasms requested also for K-pad. Vitals/I&O/Wt Last Vital Signs Temp 98.6 F 08/10/23 16:00 Pulse 90 08/10/23 16:00 Resp 18 08/10/23 18:00 BP 139/90 08/10/23 21:05 Pulse Ox 96 08/10/23 16:00 O2 Del Method Room Air 08/10/23 16:00 08/10/23 08/10/23 08/10/23 06:59 14:59 22:59 Intake Total 250 / 2045 730 / 730 250 / 980 Output Total 1575 / 1575 Balance 250 / 1520 730 / 730 -1325 / -595 Weight last 48 hrs Weight 80.739 kg Weight 80.739 kg Physical Exam Const: COMMON NORMALS: patient oriented x3 and alert GENERAL APPEARANCE: cooperative ORIENTATION/CONSCIOUSNESS: Yes awake HENMT: COMMON NORMALS: oropharynx normal Neck/C-Spine: COMMON NORMALS: no JVD Resp: COMMON NORMALS: normal respiratory effort and clear to auscultation bilaterally AUSCULTATION: clear to auscultation bilaterally Cardio: COMMON NORMALS: no JVD, regular rhythm, S1 normal heart sound present, S2 normal heart sound present and No murmurs present (Cardio) RHYTHM: regular rhythm HEART SOUNDS: S1 normal heart sound present and S2 normal heart sound present GI: COMMON NORMALS: Normal to inspection, nondistended, normoactive bowel sounds present, Soft to palpation and non-tender PALPATION: Yes Soft to palpation Extremity: COMMON NORMALS: no joint enlargement and no pedal edema Neuro: COMMON NORMALS: patient oriented x3 and moves all extremities SENSORIUM/ORIENTATION: Yes alert Skin: COMMON NORMALS: no rashes or lesions noted GENERAL SKIN EXAM: no rashes or lesions noted Data 08/10/23 04:24 08/10/23 04:24 Micro: Microbiology 08/05/23 05:10 Blood Culture - Final Blood NO GROWTH AFTER 5 DAYS 08/05/23 05:10 Blood Culture - Final Blood NO GROWTH AFTER 5 DAYS A&P Assessment and plan (1) Acute osteomyelitis of lumbar spine: Continue vancomycin. As per discussion above with him, as well as his friend placement of PICC line. Continue antibiotic. Discussed with ID. Follow-up with ID in 6 weeks - at that time to have consideration also of repeat imaging. Discussed risks of potentially disabling and/or life-threatening risks with MRSA with local or distant spread of infection. Add lidocaine patch. Add K-pad for muscle spasm. has been still requiring IV opioid. Discussed with case management. Reviewed blood cultures. reviewed echocardiogram. reviewed CBC, renal function. Patient admitted with osteomyelitis of the lumbar spine. Blood culture growing MRSA from admission. Sensitivities appreciated. 08/05 so far negative. Appreciate orthopedic and ID recommendations. Not a surgical candidate as per orthopedics. Echocardiogram negative for vegetation. Patient has remained hemodynamically stable and afebrile. Continue with vancomycin as per ID recommendations for now. Target trough levels between 15-20. Continue to follow-up blood cultures from 08/05. If continues to remain negative plan for PICC line placement for prolonged 6 weeks course of IV antibiotics. Out of bed to chair. T SLO brace when up. Continue with home dose of methadone. Dilaudid 0.5 mg every 6 hourly as needed, [place] 5 mg every 4 hourly as needed. (2) MRSA bacteremia: (3) Hepatitis C: Appreciate ID recommendations. HIV negative. Plan for treatment as an outpatient. (4) Major depressive disorder, recurrent severe without psychotic features: (5) History of substance abuse: (6) Methadone dependence: (7) Chronic pain: Plan Hypertension: Noted close to target.Goal blood pressure less than 140/90 mmHg. Blood pressure is better controlled. Continue with clonidine 0.1 mg 3 times daily, amlodipine 10 mg daily. Full code Regular diet Heparin 5000 every 12 hourly Famotidine for PUD prophylaxis. Discharge planning: Continued arrangements for postdischarge IV antibiotic infusions at LTAC. Attestations Medical Necessity Statement*: Continue admission for assessment management of MRSA vertebral osteomyelitis, treatment of pain, muscle spasm, arrangements for postdischarge continued antibiotic therapy. Diagnoses Acute osteomyelitis of lumbar spine M46.26 MRSA bacteremia R78.81; B95.62 Hepatitis C B19.20 Major depressive disorder, recurrent severe without psychotic features F33.2 History of substance abuse F19.11 Methadone dependence F11.20 Chronic pain G89.29
[2023-08-11] VITALS (10 sets, daily range): BP systolic 96–156; BP diastolic 56–89; PULSE 75–93; RESP 14–19; TEMP 36.6–37; O2SAT 93–98; BMI 24.1
[2023-08-11] MEDS: HYDROmorphone 1 mg/mL INJ 1 mL 0.5 MG IVP ×2 (00:11→06:31)
[2023-08-11] MEDS: HYDROcodone-acetaminophen 5-325 mg Tablet 1 TAB PO ×3 (01:36→20:20)
[2023-08-11] MEDS: heparin 5,000 unit/mL INJ 1 mL 5000 UNIT SUBCUT ×2 (01:36→14:29)
[2023-08-11] MEDS: vancomycin 1,250 MG/250 ML PIGGYBACK 250 MG IV ×3 (06:11→22:29)
[2023-08-11] MEDS: methadone 10 mg Tablet 40 MG PO (06:11)
[2023-08-11 06:39] LABS: Basophils # 0.1 10^3/uL (0.0-0.1); Basophils % 0.5 %; Eosinophils # 0.4 10^3/uL (0.0-0.8); Eosinophils % 3.2 %; Hematocrit 38.3 % (37-53); Lymphocytes # 1.6 10^3/uL (0.8-4.8); Mean Corpuscular HGB Conc 31.9 g/dL (30-55); Mean Corpuscular Hemoglobin 24.3 pg (27-33); Mean Corpuscular Volume 76.1 fl (82-101); Mean Platelet Volume 9.6 fL (7.4-10.4); Monocytes # 0.9 10^3/uL (0.2-0.9); Monocytes % 7.5 %; Neutrophils % 75.5 %; Nucleated Red Blood Cells % 0 %; Platelet Count 264 10^3/cmm (157-399); Red Blood Count 5.03 10^6/uL (3.85-5.65); Red Cell Distribution Width 13.5 % (12.1-15.1); White Blood Count 12.06 10^3/uL (3.29-11.43)
[2023-08-11 09:19] LABS: Anion Gap 14.4 (5-19); Blood Urea Nitrogen 18 mg/dL (6-20); Calcium 9.3 mg/dL (8.5-10.5); Carbon Dioxide 26 mmol/L (22-29); Chloride 95 mmol/L (98-107); Glomerular Filtration Rate 176.7 mL/min (90-130); Glucose 112 mg/dL (65-115); Osmolality Calculated 275 mOsm/kg (285-295); Potassium 4.4 mmol/L (3.5-5.1); Sodium 131 mmol/L (136-145)
[2023-08-11] MEDS: methylphenidate 10 mg Tablet 20 MG PO ×2 (09:52→17:49)
[2023-08-11] MEDS: cloNIDine 0.1 mg Tablet PO ×2 (09:52→20:20)
[2023-08-11] MEDS: levETIRAcetam 500 mg Tablet 250 MG PO ×2 (09:52→17:49)
[2023-08-11] MEDS: famotidine 20 mg Tablet PO ×2 (09:53→17:50)
[2023-08-11] MEDS: gabapentin 300 mg Capsule PO ×3 (09:53→20:20)
[2023-08-11] MEDS: cyclobenzaprine 10 mg Tablet PO ×3 (09:54→20:20)
[2023-08-11] MEDS: amlodipine 10 mg Tablet PO (09:54)
[2023-08-11] MEDS: lidocaine 5% Patch 1 PATCH TOPICAL ×2 (09:54→20:23)
[2023-08-11] MEDS: nicotine 21 mg Patch 1 PATCH TRANSDERMA (09:54)
--- NOTE | 2023-08-11 12:14 | P.DS_ITS ---
Discharge Providers Date of Admission: 08/03/23 12:06 Date of Discharge: August 11, 2023 Attending Provider at Admission: Antonia Kapoor MD Attending Provider at Discharge: Kennedy Cash Primary Care Provider: Harjit Kohli DO Diagnoses at Discharge Discharge Diagnosis (1) MRSA bacteremia: Status: Acute (2) Acute osteomyelitis of lumbar spine: Status: Acute (3) Hepatitis C: Status: Acute Reason for Visit Reason for Visit: Lower back pain Hospital Course Hospital Course 48-year-old gentleman with past history of IV drug use disorder, reporting no use in the last 7 months, chronic active hepatitis C presented to the hospital due to worsening back pain. Has had serial x-rays and MRI mid-May and get an MRI with contrast on admission raising concern for discitis at the L1-2 level. Outpatient he was taking doxycycline and then clindamycin due to some injuries to his right foot which had since healed. Has had prior history of MRSA, though no history of osteomyelitis or endocarditis. He was seen by infectious disease and spine surgery was consulted for biopsy. He was started on vancomycin and Zosyn empirically. Microbiologic cultures returning positive for MRSA bacteremia. TTE WNL. Treated also for symptoms of infection, pain control, TLSO brace. Continued on methadone. Muscle relaxers. Lidocaine patch. Could not take his cannabinoids while in the hospital. Recommendation against vertebroplasty for traumatic compression of L2 due to infection. As per infectious disease plan to continue vancomycin via PICC line for 6 weeks until 09/16 but overall course will depend on reassessment and follow-up imaging. Follow-up with infectious disease in office 09/17. Repeat labs with vancomycin trough, creatinine, CRP to be monitored in LTAC. Target vancomycin trough 15-20. Follow-up with ID also regarding hepatitis C. Physical Exam Narrative: Nicotine patch worked for him. No nightmares. Pain and muscle spasms better controlled. Const: COMMON NORMALS: patient oriented x3 and alert GENERAL APPEARANCE: cooperative ORIENTATION/CONSCIOUSNESS: Yes awake HENMT: COMMON NORMALS: oropharynx normal Neck/C-Spine: COMMON NORMALS: no JVD Resp: COMMON NORMALS: normal respiratory effort and clear to auscultation bilaterally AUSCULTATION: clear to auscultation bilaterally Cardio: COMMON NORMALS: no JVD, regular rhythm, S1 normal heart sound present, S2 normal heart sound present and No murmurs present (Cardio) RHYTHM: regular rhythm HEART SOUNDS: S1 normal heart sound present and S2 normal heart sound present GI: COMMON NORMALS: Normal to inspection, nondistended, normoactive bowel sounds present, Soft to palpation and non-tender PALPATION: Yes Soft to palpation Extremity: COMMON NORMALS: no joint enlargement and no pedal edema Neuro: COMMON NORMALS: patient oriented x3 and moves all extremities SENSORIUM/ORIENTATION: Yes alert Skin: COMMON NORMALS: no rashes or lesions noted GENERAL SKIN EXAM: no rashes or lesions noted Discharge Data Studies Completed and Pending Completed Studies During Hospitalization Category Date Time Status CXRP [XR chest 1V portable [id number]] Routine Exams 08/10/23 10:06 Completed MR lumbar spine wo/w con [id number] Stat MRI 08/03/23 07:47 Completed CV. echo complete* [id number] Routine Ultrasound 08/04/23 10:51 [place] liver [id number] Routine Ultrasound 08/04/23 16:32 Completed Pending at discharge Category Date Time Status Basic Metabolic Panel AM LABS Lab 08/12/23 04:00 Ordered Basic Metabolic Panel AM LABS Lab 08/13/23 04:00 Ordered Complete Blood Count w/Auto AM LABS Lab 08/12/23 04:00 Ordered Complete Blood Count w/Auto AM LABS Lab 08/13/23 04:00 Ordered Occult Blood Stool [Immunochemical Fecal OCB] Routine Lab 08/03/23 07:26 Uncollected Radiology Impressions Lumbar Spine MRI 08/03/23 07:47 IMPRESSION: Progression of L1-L2 discitis osteomyelitis, developing endplate irregularity increasing marrow edema and enhancement. Concentric epidural enhancement and perhaps tiny pockets of epidural fluid causing local canal narrowing. ADDENDUM: 08/03/23 0956 THIS REPORT CONTAINS FINDINGS THAT MAY BE CRITICAL TO PATIENT CARE. The findings were verbally communicated via telephone conference with ANANDA HENDRICKS at 9:54 AM CDT on 08/03/2023. The findings were acknowledged and understood. Laboratory Results WBC 12.06 10^3/uL (3.29-11.43) H 08/11/23 06:08 RBC 5.03 10^6/uL (3.85-5.65) 08/11/23 06:08 Hgb 12.20 g/dL (11.27-16.99) 08/11/23 06:08 Hct 38.3 % (37-53) 08/11/23 06:08 MCV 76.1 fl (82-101) L 08/11/23 06:08 MCH 24.3 pg (27-33) L 08/11/23 06:08 MCHC 31.9 g/dL (30-55) 08/11/23 06:08 RDW 13.5 % (12.1-15.1) 08/11/23 06:08 Plt Count 264 10^3/cmm (157-399) D 08/11/23 06:08 MPV 9.6 fL (7.4-10.4) 08/11/23 06:08 Neut % (Auto) 75.5 % 08/11/23 06:08 Lymph % (Auto) 13.0 % 08/11/23 06:08 [place] % (Auto) 7.5 % 08/11/23 06:08 Eos % (Auto) 3.2 % 08/11/23 06:08 Baso % (Auto) 0.5 % 08/11/23 06:08 Neut # (Auto) 9.10 10^3/uL (1.8-7.7) H 08/11/23 06:08 Lymph # (Auto) 1.6 10^3/uL (0.8-4.8) 08/11/23 06:08 [place] # (Auto) 0.9 10^3/uL (0.2-0.9) 08/11/23 06:08 Eos # (Auto) 0.4 10^3/uL (0.0-0.8) 08/11/23 06:08 Baso # (Auto) 0.1 10^3/uL (0.0-0.1) 08/11/23 06:08 Nucleated RBC % (auto) 0 % 08/11/23 06:08 Nucleated RBCs # 0.0 /100WBC 08/11/23 06:08 ESR 52 mm/hr (0-10) H 08/03/23 07:09 Sodium 131 mmol/L (136-145) L 08/11/23 08:37 Potassium 4.4 mmol/L (3.5-5.1) 08/11/23 08:37 Chloride 95 mmol/L (98-107) L 08/11/23 08:37 Carbon Dioxide 26 mmol/L (22-29) 08/11/23 08:37 Anion Gap 14.4 (5-19) 08/11/23 08:37 BUN 18 mg/dL (6-20) 08/11/23 08:37 Creatinine 0.5 mg/dL (0.7-1.2) L 08/11/23 08:37 GFR Calculation 176.7 mL/min (90-130) H 08/11/23 08:37 Glucose 112 mg/dL (65-115) 08/11/23 08:37 Estimat Average Glucose 108 08/04/23 05:15 Hemoglobin A1c 5.4 % (4.0-6.0) 08/04/23 05:15 Calculated Osmolality 275 mOsm/kg (285-295) L 08/11/23 08:37 Lactic Acid 1.1 mmol/L (0.5-2.2) 08/03/23 07:09 Calcium 9.3 mg/dL (8.5-10.5) 08/11/23 08:37 Magnesium 2.0 mg/dL (1.7-2.3) 08/06/23 05:16 Iron 15 ug/dL (59-158) L 08/03/23 07:18 TIBC 264 mcg/dl 08/03/23 07:18 % Saturation 5.6 % (20-50) L 08/03/23 07:18 Unsat Iron Binding 249 ug/dL (112-347) 08/03/23 07:18 Total Bilirubin 0.3 mg/dL (0.15-1.2) 08/10/23 04:24 AST 26 U/L (0-40) 08/10/23 04:24 ALT 23 U/L (0-41) 08/10/23 04:24 Alkaline Phosphatase 102 U/L (40-130) 08/10/23 04:24 C-Reactive Protein 14.4 mg/L (0.0-4.9) H 08/04/23 05:15 Total Protein 7.7 g/dL (6.6-8.7) 08/10/23 04:24 Albumin 3.4 g/dL (3.5-5.2) L 08/10/23 04:24 Globulin 4.3 g/dL (1.3-4.6) 08/10/23 04:24 Triglycerides 85 mg/dL (0-150) 08/04/23 05:15 Cholesterol 162 mg/dL (0-200) 08/04/23 05:15 LDL Cholesterol, Calc 107 mg/dL (50-129) 08/04/23 05:15 Total VLDL Cholesterol 17 mg/dL (0-30) 08/04/23 05:15 HDL Cholesterol 38 mg/dL (60-100) L 08/04/23 05:15 Cholesterol/HDL Ratio 4.26 mg/dL (1.0-5.00) 08/04/23 05:15 Vitamin B12 403 pg/mL (232-1245) 08/03/23 07:18 Folate 6.1 ng/mL (4.5-32.2) 08/04/23 05:15 TSH 1.82 uIU/mL (0.27-4.20) 08/03/23 07:18 Urine Color Straw (Yellow) 08/03/23 08:30 Urine Appearance Clear (CLEAR) 08/03/23 08:30 Urine pH 9 (5-7) H 08/03/23 08:30 Ur Specific [place] 1.010 (1.005-1.030) 08/03/23 08:30 Urine Protein Neg (Negative) 08/03/23 08:30 Urine Glucose (UA) Norm (Normal) 08/03/23 08:30 Urine Ketones Negative (Negative) 08/03/23 08:30 Urine Blood Neg (Negative) 08/03/23 08:30 Urine Nitrate Negative (Negative) 08/03/23 08:30 Urine Bilirubin Neg (Negative) 08/03/23 08:30 Prot Sulfosalicylic Acd Negative (Negative) 08/03/23 08:30 Urine Urobilinogen Norm mg/dL (Negative) 08/03/23 08:30 Ur Leukocyte Esterase Negative (Negative) 08/03/23 08:30 Vancomycin Trough 16.4 ug/mL (10-15) H 08/07/23 13:14 Urine Opiates Screen Positive ng/mL (Negative) H 08/03/23 08:30 Ur Barbiturates Screen Negative ng/mL (Negative) 08/03/23 08:30 Ur Phencyclidine Scrn Negative ng/mL (Negative) 08/03/23 08:30 Ur Amphetamines Screen Negative ng/mL (Negative) 08/03/23 08:30 U Benzodiazepines Scrn Negative ng/mL (Negative) 08/03/23 08:30 Urine Cocaine Screen Negative ng/mL (Negative) 08/03/23 08:30 U Marijuana (THC) Screen Positive ng/mL (Negative) H 08/03/23 08:30 HCV RNA (PCR) IUs/ml 6.16 Log IU/mL (NOT DETECTED) H 08/04/23 05:15 HCV RNA (PCR) IU log10 [id number] IU/mL (NOT DETECTED) H 08/04/23 05:15 Hep C Genotype (PCR) 1a 08/04/23 05:15 HIV 1&2 Ab & HIV 1 Ag Non-reactive (Non-Reactiv) 08/04/23 05:15 HIV 1&2 Antibody Non-reactive (Non-Reactiv) 08/04/23 05:15 Vitals Last Vital Signs Temp 98 F 08/11/23 08:00 Pulse 75 08/11/23 08:00 Resp 17 08/11/23 08:00 BP 150/87 08/11/23 09:52 Pulse Ox 94 08/11/23 08:00 O2 Del Method Room Air 08/11/23 04:00 Discharge Plan Discharge Patient Disposition: Xfer Short-Term Hosp Condition: Stable Prescriptions: New vancomycin-diluent combo no.1 1.25 gram/250 mL Piggyback 1,250 mg continuous IV infusion Q8H 43 Days Qty: 36805 0RF amlodipine 10 mg Tablet 10 mg PO DAILY Qty: 90 0RF nicotine 21 mg/24 hr Patch 24 Hour 1 patch transdermal DAILY Qty: 90 0RF nicotine (polacrilex) 4 mg Lozenge 4 mg mucous membrane Q2H PRN (Reason: Nicotine Cravings) Qty: 90 0RF lidocaine 5 % Adhesive Patch,Medicated 1 patch topical [id number] Qty: 14 0RF Continued clonidine HCl 0.1 mg tablet 0.1 mg PO TID gabapentin 300 mg capsule 300 mg PO TID (DME) TIFFANIE GIRON See Rx Instructions .Route .MEDSUPPLY Qty: 1 0RF Rx Instructions: As directed cyclobenzaprine 10 mg tablet 10 mg PO TID PRN (Reason: Muscle Spasm) levetiracetam 500 mg tablet 250 mg PO BID methylphenidate HCl 20 mg tablet 20 mg PO BID methadone 40 mg Tablet,Soluble 40 mg PO QAM Discontinued clindamycin HCl 300 mg capsule 300 mg PO TID Rx Instructions: FOR 14 DAYS Discharge Orders: Discharge Order (Routine); Ordered 08/11/23 Ordered By: Kennedy Cash Other Ambulatory Orders: MR lumbar spine wo/w con [id number] (Routine) Timeframe: 6 Weeks Facility: [facility] - Location: [facility] Ordered By: Antonia Kapoor Referrals: [facility] [Provider Group] - 09/17/23 1:00 pm Harjit Kohli DO [Primary Care Provider] - Patient Instructions: Opioid Safety Activity Restrictions/Additional Instructions: On treatment with IV vancomycin with goal trough of 15-20 Anticipate treatment for at least 6 weeks from time of clearance (08/05-09/16), but final abx course dependent on clinical and radiological course in 6 weeks from now. Weekly labs with vancomycin trough, creatinine, crp to be monitored at LT[facility] where he is trasnitioning. F/up ID clinic on Sep 17 at 1PM with regards to MRSA osteomyelitis as well as hepatitis C. Discharge Attestations Time Spent in Discharge Care*: greater than 30 min Quality Metrics Clinical Quality Measures [ No reported AMI, CVA or VTE this stay] Coding Level of Care Code 14275 Total time (in minutes) for Discharge: 50 Diagnoses MRSA bacteremia R78.81; B95.62 Acute osteomyelitis of lumbar spine M46.26 Hepatitis C B19.20
--- NOTE | 2023-08-11 12:40 | PC.NURSE ---
Pt guardian reports to this nurse that patient has two seizures of short duration while she was at bedside. This nurse reports to the patient's bedside, with no signs or symptoms of seizure present. VSS. Guardian advised to immediately report another seizure to this nurse. This nurse was outside of the room for approx. 2 minutes when patient guardian came outside the room stating that patient was having another seizure. This nurse immediately reported to bedside. No s/s of seizure noted. PERRLA, alert and oriented. 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 Eyes track well. Patient answers all questions appropriately. Dr. Cash notified of above. Orders received for seizure precautions. DC put on hold at this time. Case mgt. notified.
--- NOTE | 2023-08-11 13:51 | PC.NURSE ---
1316-Arleen and Joby ask that meds in Pyxis be given to Arleen to take home as she is leaving right now. Meds taken out of pyxis. Arleen takes these with her and is advised to NOT bring any of the meds/vapes etc back to the hospital. She verbalizes understanding.
--- NOTE | 2023-08-11 15:20 | PC.NURSE ---
Clonidine held for BP 96/54. Dr. Cash notified.
[2023-08-11] MEDS: ondansetron 2 mg/ML SDV 2 mL 4 MG IVP (18:34)
[2023-08-12] VITALS: BP 165/90; PULSE 94; RESP 20; TEMP 37.1; O2SAT 94
[2023-08-12] MEDS: HYDROcodone-acetaminophen 5-325 mg Tablet 1 TAB PO (02:18)
== END 2023-08-12 02:15 | DRG 540 ==
LOC: ER 11:24 → MEDSURG 12:38
PROVIDERS: Physician Assistant; Student in an Organized Health Care Education/Training Program; Admitting Provider Student in an Organized Health Care Education/Training Program; Emergency Provider Family Medicine; PCP Electrodiagnostic Medicine; Visit Provider Internal Medicine
DX: M46.26 Osteomyelitis of vertebra, lumbar region (principal); F33.9 Major depressive disorder, recurrent, unspecified; M46.46 Discitis, unspecified, lumbar region; B95.62 Methicillin resistant Staphylococcus aureus infection as the cause of diseases classified elsewhere; B18.2 Chronic viral hepatitis C; F11.21 Opioid dependence, in remission; Z86.14 Personal history of Methicillin resistant Staphylococcus aureus infection; F12.90 Cannabis use, unspecified, uncomplicated; F17.210 Nicotine dependence, cigarettes, uncomplicated; G89.29 Other chronic pain; R56.9 Unspecified convulsions; F40.10 Social phobia, unspecified
CPT/HCPCS: 36415; 36573; 36592; 71045; 72158; 76705; 80048; 80053; 80061; 80202; 80306; 81003; 82607; 82746; 83036; 83540; 83550; 83605; 83735; 84443; 85025; 85651; 86140; 87040; 87077; 87150; 87186; 87205; 87522; 87641; 87806; 87902; 93005; 93306; 94664; 96365; 96372; 96375; 96376; 97110; 97116; 97161; 97530; 99285; A9577; C1751; J1170; J1200; J1644; J1885; J2270; J2405; J2765; J2920; J3370; J7030; J7050

== ENCOUNTER 2023-09-22 14:21 | Outpatient (CLI) | payer MEDICAID, SELFPAY ==
--- NOTE | 2023-09-22 14:30 | MR_ITS ---
WS: [id number] MRI LUMBAR SPINE NONCONTRAST TECHNIQUE: Sagittal T1, T2 and STIR imaging. Axial T1 and T2 imaging. Patient refused gadolinium cont rast and reports prior contrast allergy. CLINICAL INFORMATION: follow up L1-L2 osteomyelitis and epidural changes COMPARISON: MRI 08/03/2023 and 07/16/2023 FINDINGS: Note if counting is performed from the craniocervical junction this results in the last lumbosacral s egment considered S1 or L6. L5 will be considered the last lumbar vertebral body today in keeping with the prior numbering conven tion. Again seen are changes of discitis and osteomyelitis involving the L1-2 disc space with progressive e rosion and collapse of the L2 vertebral body today. Loss of approximately 75% vertebral body height t zurdo. Associated paravertebral soft tissue edema. Retropulsion L1-2 results in moderate central canal stenosis with narrowing of the subarticular recess bilaterally. This is progressed compared to previ ous. No significant epidural abscess today considering lack of IV contrast. Redundancy of the cauda e quina nerve rootlets at the L1 level above the stenosis. L1-L2: Moderate central canal stenosis due to bony retropulsion. Paravertebral soft tissue edema and inflammation. Moderate LEFT and mild RIGHT foraminal narrowing. L2-L3: Mild annular bulging. Mild facet arthropathy. Spinal canal and foramen are patent. L3-L4: Mild annular bulging. Mild facet arthropathy. Slight narrowing of the RIGHT subarticular reces s. L4-L5: Mild annular bulging. Spinal canal and foramen are patent. Mild facet arthropathy. L5-S1: Mild annular bulging. Mild arthropathy. Spinal canal and foramen are patent. IMPRESSION: Some images degraded by patient motion. Gadolinium not administered described above. 1. Persistent findings of discitis/osteomyelitis with interval compression of the L2 vertebral body with loss of approximately 75% vertebral body height. Retropulsion results in moderate central canal stenosis progressed compared to previous. Redundancy of the cauda equina nerve rootlets at the L1 lev el. Consider spine surgery consultation. 2. Associated persistent paravertebral soft tissue edema at L1-2 with bone marrow edema. No visualiz ed paravertebral abscess or drainable fluid collection. 3. No apparent epidural abscess considering lack of gadolinium. 4. No other significant change compared to previous.
== END 2023-09-22 14:22 | disposition home or self-care (01) ==
LOC: RAD 14:21
PROVIDERS: PCP Electrodiagnostic Medicine; Visit Provider Student in an Organized Health Care Education/Training Program
DX: M46.26 Osteomyelitis of vertebra, lumbar region (principal); M48.061 Spinal stenosis, lumbar region without neurogenic claudication; M48.56XA Collapsed vertebra, not elsewhere classified, lumbar region, initial encounter for fracture
CPT/HCPCS: 72148

== ENCOUNTER 2023-10-12 13:23 | Outpatient (CLI) | payer MEDICAID, SELFPAY ==
[2023-10-12 13:56] LABS: Basophils # 0.1 10^3/uL (0.0-0.1); Basophils % 0.5 %; Eosinophils # 0.3 10^3/uL (0.0-0.8); Eosinophils % 2.9 %; Hematocrit 38.6 % (37-53); Lymphocytes # 1.6 10^3/uL (0.8-4.8); Lymphocytes % 17.3 %; Mean Corpuscular HGB Conc 31.1 g/dL (30-55); Mean Corpuscular Hemoglobin 25.1 pg (27-33); Mean Corpuscular Volume 80.8 fl (82-101); Mean Platelet Volume 8.9 fL (7.4-10.4); Monocytes # 0.5 10^3/uL (0.2-0.9); Neutrophils # 6.85 10^3/uL (1.8-7.7); Nucleated Red Blood Cells % 0 %; Platelet Count 323 10^3/cmm (157-399); Red Blood Count 4.78 10^6/uL (3.85-5.65); Red Cell Distribution Width 15.4 % (12.1-15.1); White Blood Count 9.26 10^3/uL (3.29-11.43)
[2023-10-12 14:12] LABS: Alanine Aminotransferase 60 U/L (0-41); Albumin Level 4.2 g/dL (3.5-5.2); Alkaline Phosphatase 109 U/L (40-130); Anion Gap 13.7 (5-19); Aspartate Amino Transferase 43 U/L (0-40); Blood Urea Nitrogen 18 mg/dL (6-20); Carbon Dioxide 29 mmol/L (22-29); Chloride 98 mmol/L (98-107); Globulin 4.5 g/dL (1.3-4.6); Glomerular Filtration Rate 102.7 mL/min (90-130); Glucose 98 mg/dL (65-115); Osmolality Calculated 284 mOsm/kg (285-295); Potassium 4.7 mmol/L (3.5-5.1); Sodium 136 mmol/L (136-145); Total Bilirubin 0.2 mg/dL (0.15-1.2); Total Protein 8.7 g/dL (6.6-8.7)
[2023-10-12 16:53] LABS: Erythrocyte Sedimentation Rate 87 mm/hr (0-10)
[2023-10-12 17:05] LABS: C Reactive Protein 7.9 mg/L (0.0-4.9)
== END 2023-10-12 13:24 | disposition home or self-care (01) ==
LOC: LAB 13:26
PROVIDERS: PCP Electrodiagnostic Medicine; Visit Provider Student in an Organized Health Care Education/Training Program
DX: M46.26 Osteomyelitis of vertebra, lumbar region (principal); R78.81 Bacteremia; B95.62 Methicillin resistant Staphylococcus aureus infection as the cause of diseases classified elsewhere
CPT/HCPCS: 36415; 80053; 85025; 85651; 86140

== ENCOUNTER 2023-10-13 13:46 | Outpatient (CLI) | payer MEDICAID, SELFPAY ==
--- NOTE | 2023-10-13 14:00 | XR_ITS ---
WS: [id number] SCREENING DEXA SCAN [employer] CLINICAL INFORMATION: lumbar COMPARISON: None. FINDINGS: The L1-L4 bone mineral density measures 1.18. This corresponds to a T score score of -0.5 and Z score of -0.1. Left femoral neck bone mineral density measures 0.974 g/cm2. This corresponds to a T score of -0.9 an d Z score of -0.4. Right femoral neck bone mineral density measures 0.973 g/cm2. This corresponds to a T score -0.9of an d Z score of -0.4. Mean femoral neck bone mineral density measures 0.974 g/cm2. This corresponds to a T score of -0.9 an d Z score of -0.4. IMPRESSION: Normal bone mineralization. Patient's FRAX calculated 10 year probability for major osteoporotic fracture is 10.8% and osteoporot ic hip fracture is 0.6%.
== END 2023-10-13 13:47 | disposition home or self-care (01) ==
LOC: RAD 13:46
PROVIDERS: PCP Electrodiagnostic Medicine; Visit Provider Orthopaedic Surgery
DX: B18.2 Chronic viral hepatitis C (principal); B95.62 Methicillin resistant Staphylococcus aureus infection as the cause of diseases classified elsewhere; F11.20 Opioid dependence, uncomplicated; G89.29 Other chronic pain; M54.9 Dorsalgia, unspecified; R78.81 Bacteremia
CPT/HCPCS: 77080

== ENCOUNTER 2023-10-14 12:22 | Inpatient (IN) | payer MEDICAID, SELFPAY ==
[2023-10-14] VITALS (15 sets, daily range): BP systolic 106–121; BP diastolic 68–81; PULSE 64–99; RESP 16–18; TEMP 36.4–37.2; O2SAT 93–97; BMI 21.7
--- NOTE | 2023-10-14 13:48 | W.ED.BACK ---
HPI - Back Pain/Injury General: Chief Complaint: Back Pain/Injury Stated Complaint: abn lab Time Seen by Provider: 10/14/23 12:58 Source: patient and other (Caregiver) Mode of arrival: wheelchair Limitations: no limitations History of Present Illness: Patient is a 48-year-old male with history of polysubstance abuse, hepatitis C, infection who presents to the emergency department accompanied by caregiver due to low back pain onset greater than a week. Patient states he has been taking antibiotics for the past 6 weeks, and his current regimen is oral Bactrim which she has not been able to tolerate. The antibiotics are for a MRSA infection that infiltrated and L2 wedge fracture that he suffered in June of this year. His surgery was postponed until the infection in his spine was cleared, but he currently reports increased pain as well as some saddle anesthesia and difficulty straining for bowel movements. He took his prescribed methadone this morning as well as ibuprofen and diazepam which have not relieved his symptoms. He denies any fever, chest pain, abdominal pain, chills, or any other symptoms. Dr. Kapoor is aware of the patient's presence in the emergency department and once blood cultures drawn, as she has seen the patient prior. He states that the Bactrim he is currently taking causes significant nausea and vomiting, which is why he has not been taking it as prescribed. MD elicited complaint: back pain Pertinent past history: IV drug use and other (Traumatic compression fracture of L2) Timing: constant Similar Symptoms Previously: Yes Location: lumbar spine Radiation: left upper leg and right upper leg Exacerbating factors: movement and sitting upright Relieving factors: supine Associated symptoms: Reports difficulty walking, nausea and vomiting; Deny abdominal pain, chills, dysuria, fatigue, fever(s) or urinary urgency Review of Systems Const: Denies: fever(s), chills, change in weight, fatigue or diaphoresis ENMT: Denies: throat pain, ear or mastoid pain, nasal discharge or nasal congestion Card: Denies: chest pain Resp: Denies: dyspnea GI: Reports: nausea and vomiting; Denies: abdominal pain or diarrhea : Denies: dysuria, urinary frequency or urinary urgency Musc: Reports: back pain; Denies: neck pain Skin/Breast: Denies: rash Neuro: Reports: sensory changes (Saddle anesthesia), difficulty walking and other (Difficulty with bowel movements); Denies: headache(s), weakness in extremities, lack of coordination or dizziness PFSH ED PFSH: Medical History Bleeding per rectum Femoral acetabular impingement History of drainage of abscess multiple History of substance abuse Narcotic abuse Social anxiety disorder Trauma in childhood Surgical History History of colonoscopy 2008 History of facial surgery 2013 History of liver biopsy 2012 No pertinent past surgical history Social History Smoking and tobacco/nicotine status: current every day tobacco/nicotine user cigarettes Packs smoked per day: 1 Years cigarettes smoked: 30 Quit status (tobacco/nicotine): has tried quititng Number of times tried to quit tobacco: 2 Second hand smoke exposure: Yes Alcohol intake: current Substance/Drug Use: current Substance/Drug use frequency: daily Other substance/drug use details: Fentanyl Current gender identity: Male Physical Exam Const: COMMON NORMALS: no acute distress GENERAL APPEARANCE: cooperative, in distress (From pain) and anxious ORIENTATION/CONSCIOUSNESS: Yes awake, Yes oriented to person, Yes oriented to place and Yes oriented to time HENMT: COMMON NORMALS: normocephalic, atraumatic, hearing grossly normal bilaterally, external ears normal, moist oral mucous membranes and oropharynx normal HEAD & SCALP: normocephalic and atraumatic EXTERNAL EAR: Yes external ears normal Eye: COMMON NORMALS: Equal, round and reactive pupils present, EOMs intact bilaterally, conjunctivae normal and no scleral icterus CONJUNCTIVA: Yes conjunctivae normal PUPIL: Yes Equal, round and reactive pupils present Neck/C-Spine: COMMON NORMALS: full ROM, no lymphadenopathy, supple and no JVD Lymph: LYMPHATIC: no lymphadenopathy noted and no lymphedema noted Resp: COMMON NORMALS: normal respiratory effort, No retractions, No use of accessory muscles and clear to auscultation bilaterally AUSCULTATION: clear to auscultation bilaterally Cardio: COMMON NORMALS: no JVD, regular rate, regular rhythm and No murmurs present (Cardio) RATE: regular rate RHYTHM: regular rhythm GI: COMMON NORMALS: Soft to palpation and No hepatosplenomegaly present AUSCULTATION: Yes normoactive bowel sounds PALPATION: Yes Soft to palpation, No Tenderness to palpation present (GI), No Guarding due to palpation present (GI) and Yes No hepatosplenomegaly present Back/Pelvis: THORACIC SPINE/UPPER BACK: Yes normal to inspection LUMBAR SPINE/LOWER BACK: Yes pain with ROM OTHER: There is bony prominence of the L2 vertebra without evidence of overlying erythema. There is no fluctuance noted on palpation. Extremity: COMMON NORMALS: normal to inspection, capillary refill normal, no clubbing, cyanosis or edema, no calf tenderness and no pedal edema Neuro: COMMON NORMALS: moves all extremities and deep tendon reflexes 2+ bilaterally SENSORIUM/ORIENTATION: Yes oriented to person, Yes oriented to place and Yes oriented to time GAIT: Yes Antalgic gait present Skin: COMMON NORMALS: no rashes or lesions noted GENERAL SKIN EXAM: no rashes or lesions noted Course Vital Signs: Vital signs: Vital Signs Temperature 99.0 F 10/14/23 12:30 Pulse Rate 76 10/14/23 15:53 Respiratory Rate 16 10/14/23 15:53 Blood Pressure 107/81 10/14/23 15:53 Pulse Oximetry 97 10/14/23 15:53 Oxygen Delivery Me thod Room Air 10/14/23 15:24 MDM - Back Pain/Injury Medical Decision Making Patient has known vertebral osteomyelitis/discitis. He also has an unstable compression fracture. He recently completed a course of antibiotics however he is not having an increase in his CRP and mild elevation of his white count. I discussed Dr. Kapoor infectious disease has been caring for the patient she is wanting him admitted and get a culture done. Consulted Dr. Lopez he is not on-call but is willing to see the patient and is planning to do surgery in 1 to 2 days when a operating room time can be secured. We will admit the patient in the meantime for pain control. I talked to Dr. Bautista. He reviewed the case and discussed again with Dr. Emelia Kapoor had initially not wanted to start any antibiotics but now given the increase in CRP she is recommending vancomycin and ceftriaxone which Dr. Bautista has ordered. Orders written for admission. Medical Records I reviewed the patient's medical records. Labs I reviewed the patient's lab results. 10/14/23 14:32 10/14/23 14:32 Laboratory Results WBC 12.56 10^3/uL (3.29-11.43) H 10/14/23 14:32 RBC 4.46 10^6/uL (3.85-5.65) 10/14/23 14:32 Hgb 11.30 g/dL (11.27-16.99) 10/14/23 14:32 Hct 36.4 % (37-53) L 10/14/23 14:32 MCV 81.6 fl (82-101) L 10/14/23 14:32 MCH 25.3 pg (27-33) L 10/14/23 14:32 MCHC 31.0 g/dL (30-55) 10/14/23 14:32 RDW 15.5 % (12.1-15.1) H 10/14/23 14:32 Plt Count 298 10^3/cmm (157-399) 10/14/23 14:32 MPV 8.9 fL (7.4-10.4) 10/14/23 14:32 Neut % (Auto) 83.4 % 10/14/23 14:32 Lymph % (Auto) 8.8 % 10/14/23 14:32 [place] % (Auto) 6.7 % 10/14/23 14:32 Eos % (Auto) 0.6 % 10/14/23 14:32 Baso % (Auto) 0.2 % 10/14/23 14:32 Neut # (Auto) 10.47 10^3/uL (1.8-7.7) H 10/14/23 14:32 Lymph # (Auto) 1.1 10^3/uL (0.8-4.8) 10/14/23 14:32 [place] # (Auto) 0.8 10^3/uL (0.2-0.9) 10/14/23 14:32 Eos # (Auto) 0.1 10^3/uL (0.0-0.8) 10/14/23 14:32 Baso # (Auto) 0.0 10^3/uL (0.0-0.1) 10/14/23 14:32 Nucleated RBC % (auto) 0 % 10/14/23 14:32 Nucleated RBCs # 0.0 /100WBC 10/14/23 14:32 ESR 82 mm/hr (0-10) H 10/14/23 14:32 Sodium 133 mmol/L (136-145) L 10/14/23 14:32 Potassium 4.8 mmol/L (3.5-5.1) 10/14/23 14:32 Chloride 93 mmol/L (98-107) L 10/14/23 14:32 Carbon Dioxide 28 mmol/L (22-29) 10/14/23 14:32 Anion Gap 16.8 (5-19) 10/14/23 14:32 BUN 18 mg/dL (6-20) 10/14/23 14:32 Creatinine 1.0 mg/dL (0.7-1.2) 10/14/23 14:32 GFR Calculation 79.4 mL/min (90-130) L 10/14/23 14:32 Glucose 99 mg/dL (65-115) 10/14/23 14:32 Calculated Osmolality 278 mOsm/kg (285-295) L 10/14/23 14:32 Calcium 9.7 mg/dL (8.5-10.5) 10/14/23 14:32 Total Bilirubin 0.4 mg/dL (0.15-1.2) 10/14/23 14:32 AST 31 U/L (0-40) 10/14/23 14:32 ALT 49 U/L (0-41) H 10/14/23 14:32 Alkaline Phosphatase 107 U/L (40-130) 10/14/23 14:32 C-Reactive Protein 79.0 mg/L (0.0-4.9) H 10/14/23 14:32 Total Protein 8.8 g/dL (6.6-8.7) H 10/14/23 14:32 Albumin 3.9 g/dL (3.5-5.2) 10/14/23 14:32 Globulin 4.9 g/dL (1.3-4.6) H 10/14/23 14:32 No radiology studies performed this visit Discharge Plan Discharge Patient Disposition: Admitted As Inpatient Admit Provider: Harry Gomez Clinical Impression: Acute osteomyelitis of lumbar spine, Traumatic compression fracture of L2 vertebra, Chronic hepatitis C, Chronic pain, Methadone dependence Condition: Stable Coding Level of Care Code ED [employer] for William Chadwick
--- NOTE | 2023-10-14 13:53 | XR_ITS ---
WS: [id number] Exam: XR chest 1V portable [id number] Date/Time of Exam: 10/14/2023 1:53 PM Reason For Exam: dyspnea/cough Comparison 08/10/2023. The lungs are clear and fully expanded. Normal cardiomediastinal silhouette. No pleural effusions. Re gional bony elements appear normal. IMPRESSION: 1. No acute cardiopulmonary finding.
--- NOTE | 2023-10-14 13:54 | ECG_ITS ---
Test Date: 2023-10-14 Pat Name: Joby Jean Department: Room: Gender: Male [employer]: : 1975 Requested By: Yonis Tanner Order Number: [id number] Rachid MD: Gm Boss M.D. Measurements Intervals [place] Rate: 80 P: 48 [place]: 139 QRS: 7 QRSD: 79 T: 54 QT: 380 QTc: 439 Interpretive Statements SINUS RHYTHM Compared to ECG 08/03/2023 07:40:12 No significant changes Electronically Signed On 10-14-2023 15:12:16 [employer] by Gm Boss M.D. [id number]
[2023-10-14 14:54] LABS: Basophils % 0.2 %; Eosinophils # 0.1 10^3/uL (0.0-0.8); Eosinophils % 0.6 %; Hematocrit 36.4 % (37-53); Lymphocytes # 1.1 10^3/uL (0.8-4.8); Lymphocytes % 8.8 %; Mean Corpuscular Hemoglobin 25.3 pg (27-33); Mean Corpuscular Volume 81.6 fl (82-101); Mean Platelet Volume 8.9 fL (7.4-10.4); Monocytes # 0.8 10^3/uL (0.2-0.9); Monocytes % 6.7 %; Neutrophils # 10.47 10^3/uL (1.8-7.7); Neutrophils % 83.4 %; Nucleated Red Blood Cells % 0 %; Platelet Count 298 10^3/cmm (157-399); Red Blood Count 4.46 10^6/uL (3.85-5.65); Red Cell Distribution Width 15.5 % (12.1-15.1); White Blood Count 12.56 10^3/uL (3.29-11.43)
[2023-10-14 15:06] LABS: Alanine Aminotransferase 49 U/L (0-41); Albumin Level 3.9 g/dL (3.5-5.2); Alkaline Phosphatase 107 U/L (40-130); Anion Gap 16.8 (5-19); Aspartate Amino Transferase 31 U/L (0-40); Blood Urea Nitrogen 18 mg/dL (6-20); Calcium 9.7 mg/dL (8.5-10.5); Carbon Dioxide 28 mmol/L (22-29); Chloride 93 mmol/L (98-107); Globulin 4.9 g/dL (1.3-4.6); Glomerular Filtration Rate 79.4 mL/min (90-130); Glucose 99 mg/dL (65-115); Osmolality Calculated 278 mOsm/kg (285-295); Potassium 4.8 mmol/L (3.5-5.1); Sodium 133 mmol/L (136-145); Total Bilirubin 0.4 mg/dL (0.15-1.2); Total Protein 8.8 g/dL (6.6-8.7)
[2023-10-14 15:09] LABS: Erythrocyte Sedimentation Rate 82 mm/hr (0-10)
[2023-10-14] MEDS: HYDROmorphone 1 mg/mL INJ 1 mL 0.5 MG IVP ×2 (16:45→21:51)
--- NOTE | 2023-10-14 16:48 | PM.HP ---
Providers/Chief Complaint Admitting Physician: Harry Gomez MD Primary Care Provider: Harjit Kohli DO Chief Complaint: abn lab History of Present Illness Joby Jean is a 48 year old male with a past medical history lumbar osteomyelitis, pathologic fracture, MRSA bacteremia, was at [facility], on daptomycin, completed antibiotic course 09/16, prior history of IV drug abuse, denies any drug use now, currently on p.o. Bactrim, chronic pain, on methadone, who presents to [facility] who presents to [facility] due to severe intractable back pain Patient tells me for the last few days he has been having severe low back pain, no nausea, no vomiting, denies any fevers, no chills, no urinary continence, no bowel incontinence, no saddle perianal anesthesia, no recent falls, no recent injuries, denies IV drug use, Review of Systems Const: Reports: body aches, fatigue and malaise; Denies: fever(s) or chills Card: Denies: chest pain Resp: Denies: dyspnea GI: Denies: abdominal pain : Denies: flank pain or difficulty urinating Musc: Reports: back pain; Denies: neck pain Skin/Breast: Denies: rash Neuro: Reports: weakness in extremities; Denies: headache(s), numbness in extremities or frequent falls Medications/Allergies Home Medications Medication Instructions Recorded Confirmed Last Taken Type clonidine HCl 0.1 mg tablet 0.1 mg PO TID 02/16/23 10/14/23 10/14/23 History gabapentin 300 mg capsule 300 mg PO TID 06/29/23 10/14/23 10/14/23 History TLSO BRACE #1 ea 07/09/23 10/14/23 Unknown Rx cyclobenzaprine 10 mg tablet 10 mg PO TID PRN Muscle Spasm 08/03/23 10/14/23 Unknown History methylphenidate HCl 20 mg tablet 20 mg PO BID 08/03/23 10/14/23 10/14/23 History sulfamethoxazole 800 1 tab PO BID 90 days #180 tabs 09/23/23 10/14/23 10/14/23 Rx mg-trimethoprim 160 mg tablet (Bactrim DS) baclofen 10 mg tablet 10 mg PO BID PRN Pain 10/14/23 10/14/23 Unknown History famotidine 20 mg tablet 20 mg PO BID 10/14/23 10/14/23 Unknown History ibuprofen 600 mg tablet 300 mg PO Q6H PRN Pain 10/14/23 10/14/23 Unknown History lidocaine 5 % topical patch 1 patch topical [id number] 10/14/23 10/14/23 Unknown History lorazepam 1 mg tablet 1 mg PO Q6H PRN Anxiety 10/14/23 10/14/23 Unknown History methadone 10 mg tablet 50 mg PO DAILY 10/14/23 10/14/23 10/14/23 History mirtazapine 15 mg tablet 15 mg PO BEDTIME 10/14/23 10/14/23 10/13/23 History ondansetron 4 mg disintegrating 8 mg PO BID PRN Nausea 10/14/23 10/14/23 Unknown History tablet Allergies Allergy/AdvReac Type Severity Reaction Status Date / Time trazodone Allergy ADR-Nightma Verified 09/29/23 14:18 re haldol Allergy Severe ADR-Anxiety Uncoded 09/29/23 14:18 contrast dye Allergy Mild ADR-Itching Uncoded 09/29/23 14:18 PFSH Acute PFSH: Medical History Bleeding per rectum Femoral acetabular impingement History of drainage of abscess multiple History of substance abuse Narcotic abuse Social anxiety disorder Trauma in childhood Surgical History History of colonoscopy 2009 History of facial surgery 2013 History of liver biopsy 2012 No pertinent past surgical history Social History Smoking and tobacco/nicotine status: current every day tobacco/nicotine user cigarettes Packs smoked per day: 1 Years cigarettes smoked: 30 Quit status (tobacco/nicotine): has tried quititng Number of times tried to quit tobacco: 2 Second hand smoke exposure: Yes Alcohol intake: current Substance/Drug Use: current Substance/Drug use frequency: daily Other substance/drug use details: Fentanyl Current gender identity: Male Vitals/I&O/Wt Last Vital Signs Temp 99.0 F 10/14/23 12:30 Pulse 76 10/14/23 15:53 Resp 16 10/14/23 15:53 BP 107/81 10/14/23 15:53 Pulse Ox 97 10/14/23 15:53 O2 Del Method Room Air 10/14/23 15:24 Weight last 48 hrs Weight 72.575 kg Physical Exam Const: COMMON NORMALS: no acute distress and patient oriented x3 HENMT: COMMON NORMALS: normocephalic HEAD & SCALP: normocephalic Eye: COMMON NORMALS: Equal, round and reactive pupils present and EOMs intact bilaterally Neck/C-Spine: COMMON NORMALS: full ROM and no lymphadenopathy Lymph: LYMPHATIC: no lymphadenopathy noted Chest: COMMONS NORMALS: normal inspection of the chest Resp: COMMON NORMALS: normal respiratory effort, No retractions, No use of accessory muscles and clear to auscultation bilaterally AUSCULTATION: clear to auscultation bilaterally Cardio: COMMON NORMALS: regular rate, regular rhythm, S1 normal heart sound present and S2 normal heart sound present RATE: regular rate RHYTHM: regular rhythm HEART SOUNDS: S1 normal heart sound present and S2 normal heart sound present GI: COMMON NORMALS: Normal to inspection, nondistended, normoactive bowel sounds present, Soft to palpation and non-tender PALPATION: Yes No hepatosplenomegaly present Back/Pelvis: GENERAL BACK: No CVA tenderness THORACIC SPINE/UPPER BACK: Yes normal to inspection LUMBAR SPINE/LOWER BACK: Yes normal to inspection, Yes pain with ROM, No lumbar spinal tenderness, Yes paraspinal muscle tenderness and Yes paraspinal muscle spasm Extremity: COMMON NORMALS: no pedal edema Neuro: COMMON NORMALS: patient oriented x3, CN's II-XII intact bilaterally, moves all extremities and no focal motor deficits Psych: COMMON NORMALS: mental status grossly normal Data 10/14/23 14:32 10/14/23 14:32 Micro: Microbiology 10/14/23 14:10 Blood Culture - Preliminary Blood SPECIMEN COLLECTED 10/14/23 14:18 Blood Culture - Preliminary Blood SPECIMEN COLLECTED A&P Assessment and plan (1) Traumatic compression fracture of L2 vertebra: (2) Acute osteomyelitis of lumbar spine: (3) Chronic pain: (4) Methadone dependence: (5) Nicotine dependence, unspecified, uncomplicated: (6) Intractable low back pain: Plan intractable low back pain -Concerns for discitis, lumbar osteomyelitis, possible underlying abscess -History of lumbar osteomyelitis, ? Pathologic fracture, ? MRSA bacteremia ? At [facility] in [place], completed daptomycin 09/16/2023 MRI lumbar spine 09/22/2023 -IMPRESSION: Some images degraded by patient motion. Gadolinium not administered described above. 1.? Persistent findings of discitis/osteomyelitis with interval compression of the L2 vertebral body with loss of approximately 75% vertebral body height. Retropulsion results in moderate central canal stenosis progressed compared to previous. Redundancy of the cauda equina nerve rootlets at the L1 level. Consider spine surgery consultation. 2.? Associated persistent paravertebral soft tissue edema at L1-2 with bone marrow edema. No visualized paravertebral abscess or drainable fluid collection. 3.? No apparent epidural abscess considering lack of gadolinium. 4.? No other significant change compared to previous ? Plan, ? Presents with acute low back pain, ? No alarm symptoms, no saddle perianal anesthesia, no urinary or bowel incontinence, ? Pain control continue home methadone 25 mg twice daily ? Add Dilaudid 0.5 mg every 4 hours as needed, ? Continue home methylphenidate 20 mg twice daily, continue home lorazepam 1 mg p.o. every 6 hours as needed, ? He did take 300 mg of ibuprofen today, avoid NSAIDs ? Blood cultures, ? ESR, CRP, Pro-Abhijit, ? Spoke to infectious disease, plans on starting antibiotics vancomycin, Rocephin, ?, ER spoke to orthopedic spine service, plan on surgical intervention, on Thursday, with tissue biopsies on Thursday, ? Chronic pain, continue home medications, ? Full code, ?, Lovenox for DVT prophylaxis Attestations Medical Necessity Statement*: patient requires hospitalization for diskitis and vertebral osteomyteltis, inpatient, greater than 2 midnights and High MDM includes number and complexity of problems actively addressed during encounter, amount and/or complexity of data reviewed/ordered and described risk of complication, morbidity or mortality of management as documented Diagnoses Traumatic compression fracture of L2 vertebra S32.020A Acute osteomyelitis of lumbar spine M46.26 Chronic pain G89.29 Methadone dependence F11.20 Nicotine dependence, unspecified, uncomplicated F17.200 Intractable low back pain M54.59
[2023-10-14 17:07] LABS: INR 1.03 (0.8-1.2)
[2023-10-14 17:28] LABS: Procalcitonin 0.08 ng/mL (0-0.5)
[2023-10-14 17:31] LABS: Lactic Sepsis W/Reflex 0.9 mmol/L (0.5-2.2)
[2023-10-14 18:05] LABS: Add Urine Microscopic? NO; Charge for UA Resulting for Rev
[2023-10-14 18:11] LABS: Thyroid Stimulating Hormone 1.11 uIU/mL (0.27-4.20)
[2023-10-14 18:30] LABS: Bilirubin Urine Neg (Negative); Blood Urine Neg (Negative); Glucose Urine UA Norm (Normal); Ketones Urine Negative (Negative); Leukocyte Esterase Urine Negative (Negative); Nitrate Urine Negative (Negative); Protein Urine Neg (Negative); Urine Appearance Clear (CLEAR); Urine Color Dark Yellow (Yellow); Urobilinogen Urine Norm (Negative); pH Urine 5 (5-7)
[2023-10-14 18:48] LABS: Alcohol Level < 10 mg/dL (0-10)
[2023-10-14] MEDS: cefTRIAXone 1,000 MG in sodium chloride 0.9% (plus) 50 ML 100 MG IV (19:20)
[2023-10-14] MEDS: enoxaparin 40 mg/0.4 mL Syringe SUBCUT (19:21)
[2023-10-14] MEDS: sodium chloride 0.9% 1,000 ML 100 ML IV (19:22)
[2023-10-14] MEDS: methadone 10 mg Tablet 25 MG PO (19:22)
[2023-10-14] MEDS: methylphenidate 10 mg Tablet 20 MG PO (19:27)
[2023-10-14 19:58] LABS: Amphetamines Screen Urine Negative (Negative); Barbiturates Screen Urine Negative (Negative); Benzodiazepines Screen Urine Positive (Negative); Cocaine Screen Urine Negative (Negative); Opiate Screen Urine Positive (Negative); PCP Screen Urine Negative (Negative); THC Screen Urine Positive (Negative)
[2023-10-14] MEDS: vancomycin 1,250 MG/250 ML PIGGYBACK 250 MG IV (20:41)
[2023-10-14] MEDS: cloNIDine 0.1 mg Tablet PO (21:50)
[2023-10-14] MEDS: gabapentin 300 mg Capsule PO (21:50)
[2023-10-14] MEDS: baclofen 10 mg Tablet PO (23:15)
[2023-10-14] MEDS: mirtazapine 15 mg Tablet PO (23:15)
[2023-10-14] MEDS: ondansetron 2 mg/ML SDV 2 mL 4 MG IVP (23:16)
[2023-10-15] VITALS (15 sets, daily range): BP systolic 96–120; BP diastolic 58–69; PULSE 53–74; RESP 14–18; TEMP 36.4–36.9; O2SAT 91–92
[2023-10-15 04:59] LABS: Basophils % 0.3 %; Eosinophils # 0.1 10^3/uL (0.0-0.8); Hematocrit 30.5 % (37-53); Lymphocytes # 1.6 10^3/uL (0.8-4.8); Lymphocytes % 14.6 %; Mean Corpuscular HGB Conc 31.8 g/dL (30-55); Mean Corpuscular Hemoglobin 25.6 pg (27-33); Mean Corpuscular Volume 80.5 fl (82-101); Mean Platelet Volume 9.3 fL (7.4-10.4); Monocytes # 0.9 10^3/uL (0.2-0.9); Monocytes % 8.5 %; Neutrophils # 8.33 10^3/uL (1.8-7.7); Neutrophils % 75.4 %; Nucleated Red Blood Cells % 0 %; Platelet Count 259 10^3/cmm (157-399); Red Blood Count 3.79 10^6/uL (3.85-5.65); Red Cell Distribution Width 15.5 % (12.1-15.1); White Blood Count 11.04 10^3/uL (3.29-11.43)
[2023-10-15 05:21] LABS: Creatine Phosphokinase 103 U/L (39-308)
[2023-10-15 05:22] LABS: Alanine Aminotransferase 37 U/L (0-41); Albumin Level 3.3 g/dL (3.5-5.2); Alkaline Phosphatase 93 U/L (40-130); Aspartate Amino Transferase 26 U/L (0-40); Blood Urea Nitrogen 18 mg/dL (6-20); C Reactive Protein 98.4 mg/L (0.0-4.9); Carbon Dioxide 25 mmol/L (22-29); Chloride 97 mmol/L (98-107); Globulin 3.4 g/dL (1.3-4.6); Glomerular Filtration Rate 71.1 mL/min (90-130); Glucose 89 mg/dL (65-115); Osmolality Calculated 279 mOsm/kg (285-295); Phosphorus 3.4 mg/dL (2.5-4.5); Sodium 134 mmol/L (136-145); Total Bilirubin 0.3 mg/dL (0.15-1.2); Total Protein 6.7 g/dL (6.6-8.7)
[2023-10-15 05:23] LABS: Anion Gap 16.7 (5-19); Potassium 4.7 mmol/L (3.5-5.1)
[2023-10-15] MEDS: sodium chloride 0.9% 1,000 ML 100 ML IV ×2 (05:58→16:06)
--- NOTE | 2023-10-15 07:25 | P.CONIM_ITS ---
Providers/Reason For Consult Consulting Physician/Specialty*: Orthopedic spine Reason for Consult*: Back and leg pain Attending Physician: Harry Gomez MD Primary Care Provider: Harjit Kohli DO History of Present Illness History of Present Illness Joby Jean is a 48 year old male who is well-known to our practice based on his condition. He presented back to the hospital for intractable back pain this progressively intensified. Reports a severe uncontrolled back pain reports bilateral leg pain. He denies any specific new injury. Pain has continued and has been unbearable. He denies loss of bowel or bladder control. He has had difficult time mobilizing. Describes the pain as sharp stabbing constant in nature movement making it much worse. Reports equal back to leg pain. Reports pain through the hip and upper thigh region. Ranks the pain as 10 out of 10 on the pain scale. Review of Systems Const: Reports: body aches, fatigue and malaise; Denies: fever(s) or chills Card: Denies: chest pain Resp: Denies: dyspnea GI: Denies: abdominal pain : Denies: flank pain or difficulty urinating Musc: Reports: back pain; Denies: neck pain Skin/Breast: Denies: rash Neuro: Reports: weakness in extremities; Denies: headache(s), numbness in extremities or frequent falls Medications/Allergies Home Medications Medication Instructions Recorded Confirmed Last Taken Type clonidine HCl 0.1 mg tablet 0.1 mg PO TID 02/16/23 10/14/23 10/14/23 History gabapentin 300 mg capsule 300 mg PO TID 06/29/23 10/14/23 10/14/23 History TLSO BRACE #1 ea 07/09/23 10/14/23 Unknown Rx cyclobenzaprine 10 mg tablet 10 mg PO TID PRN Muscle Spasm 08/03/23 10/14/23 Unknown History methylphenidate HCl 20 mg tablet 20 mg PO BID 08/03/23 10/14/23 10/14/23 History sulfamethoxazole 800 1 tab PO BID 90 days #180 tabs 09/23/23 10/14/23 10/14/23 Rx mg-trimethoprim 160 mg tablet (Bactrim DS) baclofen 10 mg tablet 10 mg PO BID PRN Pain 10/14/23 10/14/23 Unknown History famotidine 20 mg tablet 20 mg PO BID 10/14/23 10/14/23 Unknown History ibuprofen 600 mg tablet 300 mg PO Q6H PRN Pain 10/14/23 10/14/23 Unknown History lidocaine 5 % topical patch 1 patch topical [id number] 10/14/23 10/14/23 Unknown History lorazepam 1 mg tablet 1 mg PO Q6H PRN Anxiety 10/14/23 10/14/23 Unknown History methadone 10 mg tablet 50 mg PO DAILY 10/14/23 10/14/23 10/14/23 History mirtazapine 15 mg tablet 15 mg PO BEDTIME 10/14/23 10/14/23 10/13/23 History ondansetron 4 mg disintegrating 8 mg PO BID PRN Nausea 10/14/23 10/14/23 Unknown History tablet Allergies Allergy/AdvReac Type Severity Reaction Status Date / Time trazodone Allergy ADR-Nightma Verified 09/29/23 14:18 re haldol Allergy Severe ADR-Anxiety Uncoded 09/29/23 14:18 contrast dye Allergy Mild ADR-Itching Uncoded 09/29/23 14:18 Current Medications Generic Name Dose Route Start Last Admin Trade Name Freq PRN Reason Stop Dose Admin Baclofen 10 mg 10/14/23 17:32 10/14/23 23:15 Baclofen 10 Mg Tablet PO 10 mg BID PRN Administration Pain Clonidine HCl 0.1 mg 10/14/23 21:00 10/14/23 21:50 Clonidine 0.1 Mg Tablet PO 0.1 mg TID AARTI Administration Enoxaparin Sodium 40 mg 10/14/23 17:32 10/14/23 19:21 Enoxaparin 40 Mg/0.4 Ml Syringe SUBCUT 40 mg Q24H AARTI Administration Famotidine 20 mg 10/14/23 18:00 10/14/23 19:25 Famotidine 20 Mg Tablet PO Not Given BID AARTI Gabapentin 300 mg 10/14/23 21:00 10/14/23 21:50 Gabapentin 300 Mg Capsule PO 300 mg TID AARTI Administration Hydromorphone HCl 0.5 mg 10/14/23 17:32 10/14/23 21:51 Hydromorphone 1 Mg/Ml Inj 1 Ml IVP 0.5 mg Q4H PRN Administration PAIN Sodium Chloride 1,000 mls @ 100 mls/hr 10/14/23 17:32 10/15/23 05:58 Sodium Chloride 0.9% IV 100 mls/hr .Q10H AARTI Administration Ceftriaxone Sodium 1,000 mg/ 50 mls @ 100 mls/hr 10/14/23 17:32 10/14/23 20:45 Sodium Chloride IV Infused Q24H AARTI Infusion Protocol Vancomycin/PEG/NADA/Lysine/Water 1,250 mg in 250 mls @ 250 mls/hr 10/14/23 20:00 10/14/23 21:50 Vancocin IV Infused Q12H AARTI Infusion Lidocaine 1 patch 10/14/23 21:00 10/14/23 21:54 Lidocaine 5% Patch TOPICAL Not Given [id number] AARTI Methadone HCl 25 mg 10/14/23 18:15 10/14/23 19:22 Methadone 10 Mg Tablet PO 25 mg BID AARTI Administration Methylphenidate HCl 20 mg 10/14/23 18:00 10/14/23 19:27 Methylphenidate 10 Mg Tablet PO 20 mg BID AARTI Administration Mirtazapine 15 mg 10/14/23 21:00 10/14/23 23:15 Mirtazapine 15 Mg Tablet PO 15 mg BEDTIME AARTI Administration Ondansetron HCl 4 mg 10/14/23 17:32 10/14/23 23:16 Ondansetron 2 Mg/Ml Sdv 2 Ml IVP 4 mg Q6H PRN Administration NAUSEA AND VOMITING PFSH Acute PFSH: Medical History Bleeding per rectum Femoral acetabular impingement History of drainage of abscess multiple History of substance abuse Narcotic abuse Social anxiety disorder Trauma in childhood Surgical History History of colonoscopy 2009 History of facial surgery 2013 History of liver biopsy 2013 No pertinent past surgical history Social History Smoking and tobacco/nicotine status: current every day tobacco/nicotine user cigarettes Packs smoked per day: 1 Years cigarettes smoked: 30 Quit status (tobacco/nicotine): has tried quititng Number of times tried to quit tobacco: 2 Second hand smoke exposure: Yes Alcohol intake: current Substance/Drug Use: current Substance/Drug use frequency: daily Other s ubstance/drug use details: Fentanyl Current gender identity: Male Vitals/I&O/Wt Last Vital Signs Temp 97.6 F 10/15/23 05:00 Pulse 63 10/15/23 05:00 Resp 16 10/15/23 05:00 BP 98/59 10/15/23 05:00 Pulse Ox 92 10/15/23 05:00 O2 Del Method Room Air 10/14/23 17:50 10/14/23 10/15/23 10/15/23 22:59 06:59 14:59 Intake Total 900 / 900 1120 / 2020 Output Total 500 / 500 Balance 900 / 900 620 / 1520 Weight last 48 hrs Weight 172 lb 14.4 oz Weight 170 lb 12.8 oz Weight 160 lb Physical Exam Narrative: Patient is alert orient x3 has a good general appearance normal mood and affect. Patient presents with antalgic gait. Demonstrates dorsiflexion and plantarflexion with difficulty. Exhibits coordination and stability with a walker. Severe palpatory and percussion pain throughout the paraspinous musculature of the thoracolumbar spine. Decreased l sensation to light touch through all dermatomal layers. Normal sensation light touch down both lower extremities with 4/5 motor strength throughout all motor groups. Moderate palpable pain over the SI joints bilaterally. Negative Calixto and Fabere sign. Negative straight leg raise bilaterally. Skin is clear warm with normal sensat ion to light touch, calves are supple with no medial thigh tenderness, negative Homans' sign. No palpable lymphadenopathy bilaterally. Reflexes are 1+ and symmetric about the knees and Achilles. Dorsalis pedis and posterior tibial pulses are 2+. No palpable edema bilaterally. HENMT: COMMON NORMALS: normocephalic and atraumatic HEAD & SCALP: normocephalic and atraumatic Resp: COMMON NORMALS: normal respiratory effort Cardio: COMMON NORMALS: regular rate and regular rhythm RATE: regular rate RHYTHM: regular rhythm GI: COMMON NORMALS: Soft to palpation PALPATION: Yes Soft to palpation : COMMON NORMALS: Yes no CVA tenderness BLADDER/KIDNEY EXAM: Yes no CVA tenderness Back/Pelvis: COMMON NORMALS: no CVA tenderness Psych: COMMON NORMALS: mental status grossly normal and cooperative Data 10/15/23 04:28 10/15/23 04:28 Micro: Microbiology 10/14/23 14:10 Blood Culture - Preliminary Blood SPECIMEN COLLECTED 10/14/23 14:18 Blood Culture - Preliminary Blood SPECIMEN COLLECTED MRI: Radiologist's impression: IMPRESSION: Some images degraded by patient motion. Gadolinium not administered described above. 1.? Persistent findings of discitis/osteomyelitis with interval compression of the L2 vertebral body with loss of approximately 75% vertebral body height. Retropulsion results in moderate central canal stenosis progressed compared to previous. Redundancy of the cauda equina nerve rootlets at the L1 level. Consider spine surgery consultation. 2.? Associated persistent paravertebral soft tissue edema at L1-2 with bone marrow edema. No visualized paravertebral abscess or drainable fluid collection. 3.? No apparent epidural abscess considering lack of gadolinium. 4.? No other significant change compared to previous. A&P Assessment and plan (1) Intractable low back pain: At this point discussed at length patient's condition with the retropulsed bone at L1 to with the back and leg pain that he is describing attempting to do a decompression at that level to try and alleviate some of his symptoms and do a bone biopsy of that L1-2 level as was recommended by Dr. Lopez. Infectious diseases been consulted for treatment as well discussed this procedure with the patient and he would like to proceed. Discussed the risks and benefits of the procedure which include but not limited to bleeding infection nerve damage continued back pain continued leg pain need for surgery reaction anesthesia he understands these risks wished to proceed discussed with him that we will not put instrumentation in to stabilize the L1-2 level based on his history of infection and current MRSA bacteremia. More than 50% of the time spent with the patient today involved coordination of care, counseling and discussion of conservative versus surgical treatment options. Total amount of time spent with the patient was 46 minutes. (2) MRSA bacteremia: (3) History of substance abuse: Coding Level of Care Code Acute Code for [facility] Diagnoses Intractable low back pain M54.59 MRSA bacteremia R78.81; B95.62 History of substance abuse F19.11 Time Spent (min) 46
[2023-10-15] MEDS: HYDROmorphone 1 mg/mL INJ 1 mL 0.5 MG IVP ×3 (07:35→18:05)
--- NOTE | 2023-10-15 07:58 | PC.OT ---
OT EVALUATION ORDERS RECEIVED. HOLD OT EVALUATION PENDING BACK SX
[2023-10-15] MEDS: vancomycin 1,250 MG/250 ML PIGGYBACK 250 MG IV ×2 (09:43→20:55)
[2023-10-15] MEDS: methylphenidate 10 mg Tablet 20 MG PO ×2 (09:48→18:04)
[2023-10-15] MEDS: cloNIDine 0.1 mg Tablet PO (09:48)
[2023-10-15] MEDS: methadone 10 mg Tablet 25 MG PO ×2 (09:48→18:03)
[2023-10-15] MEDS: gabapentin 300 mg Capsule PO ×3 (09:49→21:01)
--- NOTE | 2023-10-15 09:49 | PC.CHAP ---
Pastoral Care Encounter/Spiritual Assessment Type of Contact [] Declined presidential support specialist visit [] Patient/Family/Request visit [] Outpatient visit [] Follow-up visit [] Physician referral [] Code/Alert [x] Routine visit [] Staff referral [] Actively dying [] Patient sleeping [] Family support [] [] Out of room [] Palliative care [] [x] Receiving care in room [] Pre-surgical visit [] Trauma [] Long length of stay [] ICU visit [] Other: Relational/Emotional Strength [x] Patient feels connected with others/family/visitors/staff [] Distress [] Loneliness/isolation [] Abandonment Spirituality of Patient [x] Person of Nelida [] Attends Buddhist of their [place] [x] Believes in Prayer [] Reads Bible or Mormon materials [] There are Spiritual issues to be addressed [employer] Interventions [x] Prayer [x] Active listening [x] Non-anxious presence [x] Spiritual/emotional support [] Crisis/trauma care [x] Spiritual counseling [] Bereavement support [] Provided bereavement packet [] Provided Bible/devotional materials [] Provided toy/stuffed animal, coloring book to patient or family member [] Provided Communion [] Anointing/[place] [] Salvation [x] Completed spiritual assessment [] Other: Impact on Illness or Injury [] Angry [] Fearful [] Anxious [] Often cries [] Exhaustion [] Unable to work [] Unable to attend jainism [] Unable to walk/stand [] Unable to read [] Unable to drive [] Unable to eat/drink [] Unable to sleep [] Unable to be with family [] Patient intubated [] Other: Summary surgery on back in pain well need rehab at home well be going home Time spent with patient 10 mins
[2023-10-15] MEDS: lidocaine 5% Patch 1 PATCH TOPICAL (09:54)
[2023-10-15] MEDS: LORazepam 1 mg Tablet PO (11:05)
[2023-10-15] MEDS: ondansetron 2 mg/ML SDV 2 mL 4 MG IVP (12:24)
[2023-10-15 13:27] LABS: Bacillus cereus group Not Detected (NOT DETECT); Bacillus subtillis group Not Detected (NOT DETECT); Corynebacterium Not Detected (NOT DETECT); Cutibacterium acnes (P.acnes) Not Detected (NOT DETECT); Enterococcus Not Detected (NOT DETECT); Enterococcus faecalis Not Detected (NOT DETECT); Enterococcus faecium Not Detected (NOT DETECT); Lactobacillus species Not Detected (NOT DETECT); Listeria Not Detected (NOT DETECT); Listeria monocytogenes Not Detected (NOT DETECT); Micrococcus Not Detected (NOT DETECT); Pan Candida Not Detected (NOT DETECT); Pan Gram-Negative Not Detected (NOT DETECT); Staphylococcus epidermidis Not Detected (NOT DETECT); Staphylococcus lugdunensis Not Detected (NOT DETECT); Staphylococcus species Not Detected (NOT DETECT); Streptococcus agalactiae Not Detected (NOT DETECT); Streptococcus anginosus group Not Detected (NOT DETECT); Streptococcus pneumoniae Not Detected (NOT DETECT); Streptococcus pyogenes Not Detected (NOT DETECT); Streptococcus species Not Detected (NOT DETECT)
--- NOTE | 2023-10-15 13:35 | XR_ITS ---
WS: [id number] Exam: XR lumbar spine 1V port [id number] Date/Time of Exam: 10/15/2023 2:29 PM Reason For Exam: evaluate for new fractures Comparison 07/09/2023. And MR lumbar spine performed 09/22/2023. There is been interval destruction of the lower endplate of L1 since the prior study. Progressive bon e destruction of the L2 vertebral body with only the lower endplate remaining. There is also been oss eous destruction of the L2 pedicles. There is some retropulsion of the L1 vertebral body. The remaini ng lumbar vertebra are intact. Facet arthropathy at all levels. Osteopenia. IMPRESSION: 1. New interval osseous destruction of the lower endplate of L1 apparently secondary to L1-2 discitis and osteomyelitis. 2. Progressive destruction of the L2 vertebral body with only the lower endplate of the vertebra ced ining. There is also significant osseous destruction of the L2 pedicles. 3. There appears to be significant L1 retropulsion with some compromise of the spinal canal.
--- NOTE | 2023-10-15 13:48 | P.PN_ITS ---
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: patient was seen this morning, he reports his pain is well controlled, no headache, no blurry vision, no fevers, Vitals/I&O/Wt Last Vital Signs Temp 98.3 F 10/15/23 11:50 Pulse 53 L 10/15/23 11:50 Resp 18 10/15/23 12:23 BP 120/68 10/15/23 12:22 Pulse Ox 92 10/15/23 11:50 O2 Del Method Room Air 10/15/23 11:50 10/14/23 10/15/23 10/15/23 22:59 06:59 14:59 Intake Total 900 / 900 1120 / 2020 490 / 490 Output Total 500 / 500 Balance 900 / 900 620 / 1520 490 / 490 Weight last 48 hrs Weight 78.426 kg Weight 77.474 kg Weight 72.575 kg Physical Exam Const: COMMON NORMALS: no acute distress and patient oriented x3 Resp: COMMON NORMALS: normal respiratory effort, No retractions, No use of accessory muscles and clear to auscultation bilaterally AUSCULTATION: clear to auscultation bilaterally Cardio: COMMON NORMALS: regular rate, regular rhythm, S1 normal heart sound present and S2 normal heart sound present RATE: regular rate RHYTHM: regular rhythm HEART SOUNDS: S1 normal heart sound present and S2 normal heart sound present GI: COMMON NORMALS: Normal to inspection, nondistended, normoactive bowel sounds present and non-tender Extremity: COMMON NORMALS: no pedal edema Neuro: COMMON NORMALS: patient oriented x3 Psych: COMMON NORMALS: mental status grossly normal Data 10/15/23 04:28 10/15/23 04:28 Micro: Microbiology 10/14/23 14:10 Blood Culture - Preliminary Blood SPECIMEN COLLECTED 10/14/23 14:18 Blood Culture - Preliminary Blood SPECIMEN COLLECTED A&P Assessment and plan (1) Traumatic compression fracture of L2 vertebra: (2) Acute osteomyelitis of lumbar spine: (3) Chronic pain: (4) Methadone dependence: (5) Nicotine dependence, unspecified, uncomplicated: (6) Intractable low back pain: Plan intractable low back pain -Concerns for discitis, lumbar osteomyelitis, possible underlying abscess, pathological fracture -History of lumbar osteomyelitis, ? Pathologic fracture, ? MRSA bacteremia ? At [facility] in [place], completed daptomycin 09/16/2023 MRI lumbar spine 09/22/2023 -IMPRESSION: Some images degraded by patient motion. Gadolinium not administered described above. 1.? Persistent findings of discitis/osteomyelitis with interval compression of the L2 vertebral body with loss of approximately 75% vertebral body height. Retropulsion results in moderate central canal stenosis progressed compared to previous. Redundancy of the cauda equina nerve rootlets at the L1 level. Consider spine surgery consultation. 2.? Associated persistent paravertebral soft tissue edema at L1-2 with bone marrow edema. No visualized paravertebral abscess or drainable fluid collection. 3.? No apparent epidural abscess considering lack of gadolinium. 4.? No other significant change compared to previous ? Plan, ? Presents with acute low back pain, ? No alarm symptoms, no saddle or perianal anesthesia, no urinary or bowel incontinence, ? Pain control continue home methadone 25 mg twice daily ? Add Dilaudid 0.5 mg every 4 hours as needed, ? Continue home methylphenidate 20 mg twice daily, continue home lorazepam 1 mg p.o. every 6 hours as needed, ? He did take 300 mg of ibuprofen today, avoid NSAIDs ? Blood cultures, ? follow ESR, CRP, Pro-Abhijit, ? Spoke to infectious disease, plans on starting antibiotics vancomycin, Rocephin, ?, ER spoke to orthopedic spine service, plan on surgical intervention, on Thursday, with tissue biopsies on Thursday, ? Chronic pain, continue home medications, ? Full code, ?, Lovenox for DVT prophylaxis Attestations Medical Necessity Statement*: patient requires hospitalization with concerns for hospitalization Concerns for discitis, lumbar osteomyelitis, possible underlying abscess, pathological fracture Diagnoses Traumatic compression fracture of L2 vertebra S32.020A Acute osteomyelitis of lumbar spine M46.26 Chronic pain G89.29 Methadone dependence F11.20 Nicotine dependence, unspecified, uncomplicated F17.200 Intractable low back pain M54.59
--- NOTE | 2023-10-15 14:49 | PM.CONSULT ---
Providers/Reason For Consult Consulting Physician/Specialty*: Antonia Kapoor MD/ infectious disease Reason for Consult*: Spine osteomyelitis/ discitis Requesting Physician: Dr. Yonis Jacques Attending Physician: Harry Gomez MD Primary Care Provider: Harjit Kohli DO History of Present Illness History of Present Illness Joby Jean is a 48 year old male known to me from a previous hospital admission and recent outpatient follow-up on September 17, 2023. Briefly, Mr. Jean is a 48-year-old male with a remote history of IV drug use, currently in a methadone treatment program with [facility], who was admitted to the hospital between August 03, 2023 to August 11, 2023 with MRSA bacteremia and osteomyelitis of the lumbar spine at the L1-L2 level. MRI at that time had showed endplate irregularity with increasing marrow edema and enhancement at the L1-L2 level. Blood cultures were positive upon admission. Spine biopsy was deferred as blood culture was revealing of the organism. He was treated medically with 6 weeks of IV vancomycin which he completed at an LTAC. He did develop JIMMIE with IV vancomycin therefore treatment was changed to IV daptomycin while at LTAC. He completed 6 weeks of the same and was discharged on September 16, 2023. Piccc line was removed at discharge. TTE was negative for gross vegetations. On September 17, 2023 he followed up as outpatient with the infectious disease clinic where he was wearing a TLSO brace and continued to complain of significant pain over his back.. Follow-up MRI was ordered on this last visit and he was prescribed Bactrim DS twice daily while awaiting results. Inflammatory markers were trending down and were reassuring at 7 three days prior to current admission. He was referred to spinal surgery with Dr. Lopez due to his ongoing pain and discomfort to assess for any decompression/stabilizing surgery for the back. MRI of the lumbar spine was completed on September 22, 2023. Patient refused IV contrast therefore noncontrast study was completed. The study showed interval compression of the L2 vertebral body with loss of 75% of the vertebral body height. There was significant retropulsion resulting in canal stenosis which appeared to be progressed over previous MRI performed in July 2023. There was redundancy of the cauda equina nerve roots at the L1 level. There was associated paravertebral soft tissue edema at the level of L1-L2 with bone marrow edema without any evidence of paravertebral abscess or drainable collection. Findings were likely related to sequelae from known recently treated osteomyelitis/discitis. This past Thursday (today is ), patient slipped and fell in the kitchen while trying to open the fridge. He hit the kitchen counter while falling backwards. Since then his pain got much worse. He tried pain management with additional ibuprofen but when symptoms did not improve he decided to come into the emergency room. Patient states that he also interrupted Bactrim treatment due to poor GI tolerability, he estimates he was off it for about 7 to 10 days before resuming Bactrim again on Thursday. Priro to that he had several episodes where he vomited right after taking bactrim. His CRP went up from 7 to 79 in a span of 2 days. ESR is at 82, with prior trends being between 48-52 from July 2023. He denies any fever or chills. Denies any recent other illnesses, denies any cough chest pain dyspnea palpitations. Denies any diarrhea. Denies abdominal pain. Review of Systems General: Reports: 10 or more systems reviewed and unremarkable except in HPI and below Const: Denies: fever(s), chills or body aches Eyes: Denies: change in vision, blurry vision or photophobia ENMT: Reports: hoarseness; Denies: throat pain, enlarged tonsils, odynophagia or nasal congestion Card: Denies: chest pain, palpitations, irregular heart rhythm, edema, swelling of feet/ankles, lightheadedness, pre-syncope, dyspnea on exertion or orthopnea Resp: Denies: dyspnea, productive cough, non-productive cough, wheezing, stridor, pain on inspiration, change in phlegm color, hemoptysis or chest congestion GI: Denies: abdominal pain, nausea, vomiting, hematemesis, coffee ground emesis, dysphagia, heartburn, diarrhea, constipation, GI cramping, change in stool character, hematochezia or melena : Denies: flank pain, dysuria, urinary frequency, urinary urgency, urinary hesitancy or hematuria Musc: Denies: neck pain, back pain, extremity pain, joint swelling, joint warmth or deformity Neuro: Denies: headache(s), numbness in extremities, weakness in extremities, sensory changes, difficulty walking, frequent falls, dizziness, vertigo, behavioral changes, Slurred speech present or seizure-like activity Psych: Denies: anxiety, depression, suicidal ideation or homicidal ideation Endo: Denies: polyuria, polydipsia, tired all the time, cold intolerance or hot flashes Festus/Lymph: Denies: easy bruising or easy bleeding Medications/Allergies Home Medications Medication Instructions Recorded Confirmed Last Taken Type clonidine HCl 0.1 mg tablet 0.1 mg PO TID 02/16/23 10/14/23 10/14/23 History gabapentin 300 mg capsule 300 mg PO TID 06/29/23 10/14/23 10/14/23 History TLSO BRACE #1 ea 07/09/23 10/14/23 Unknown Rx cyclobenzaprine 10 mg tablet 10 mg PO TID PRN Muscle Spasm 08/03/23 10/14/23 Unknown History methylphenidate HCl 20 mg tablet 20 mg PO BID 08/03/23 10/14/23 10/14/23 History sulfamethoxazole 800 1 tab PO BID 90 days #180 tabs 09/23/23 10/14/23 10/14/23 Rx mg-trimethoprim 160 mg tablet (Bactrim DS) baclofen 10 mg tablet 10 mg PO BID PRN Pain 10/14/23 10/14/23 Unknown History famotidine 20 mg tablet 20 mg PO BID 10/14/23 10/14/23 Unknown History ibuprofen 600 mg tablet 300 mg PO Q6H PRN Pain 10/14/23 10/14/23 Unknown History lidocaine 5 % topical patch 1 patch topical [id number] 10/14/23 10/14/23 Unknown History lorazepam 1 mg tablet 1 mg PO Q6H PRN Anxiety 10/14/23 10/14/23 Unknown History methadone 10 mg tablet 50 mg PO DAILY 10/14/23 10/14/23 10/14/23 History mirtazapine 15 mg tablet 15 mg PO BEDTIME 10/14/23 10/14/23 10/13/23 History ondansetron 4 mg disintegrating 8 mg PO BID PRN Nausea 10/14/23 10/14/23 Unknown History tablet Allergies Allergy/AdvReac Type Severity Reaction Status Date / Time trazodone Allergy ADR-Nightma Verified 09/29/23 14:18 re haldol Allergy Severe ADR-Anxiety Uncoded 09/29/23 14:18 contrast dye Allergy Mild ADR-Itching Uncoded 09/29/23 14:18 Current Medications Generic Name Dose Route Start Last Admin Trade Name Freq PRN Reason Stop Dose Admin Baclofen 10 mg 10/14/23 17:32 10/14/23 23:15 Baclofen 10 Mg Tablet PO 10 mg BID PRN Administration Pain Clonidine HCl 0.1 mg 10/14/23 21:00 10/15/23 09:48 Clonidine 0.1 Mg Tablet PO 0.1 mg TID AARTI Administration Enoxaparin Sodium 40 mg 10/14/23 17:32 10/14/23 19:21 Enoxaparin 40 Mg/0.4 Ml Syringe SUBCUT 40 mg Q24H AARTI Administration Famotidine 20 mg 10/14/23 18:00 10/15/23 09:53 Famotidine 20 Mg Tablet PO Not Given BID AARTI Gabapentin 300 mg 10/14/23 21:00 10/15/23 09:49 Gabapentin 300 Mg Capsule PO 300 mg TID AARTI Administration Hydromorphone HCl 0.5 mg 10/14/23 17:32 10/15/23 12:23 Hydromorphone 1 Mg/Ml Inj 1 Ml IVP 0.5 mg Q4H PRN Administration PAIN Sodium Chloride 1,000 mls @ 100 mls/hr 10/14/23 17:32 10/15/23 05:58 Sodium Chloride 0.9% IV 100 mls/hr .Q10H AARTI Administration Ceftriaxone Sodium 1,000 mg/ 50 mls @ 100 mls/hr 10/14/23 17:32 10/14/23 20:45 Sodium Chloride IV Infused Q24H AARTI Infusion Protocol Vancomycin/PEG/NADA/Lysine/Water 1,250 mg in 250 mls @ 250 mls/hr 10/14/23 20:00 10/15/23 11:10 Vancocin IV Infused Q12H AARTI Infusion Lidocaine 1 patch 10/14/23 21:00 10/15/23 09:54 Lidocaine 5% Patch TOPICAL 1 patch [id number] AARTI Administration Lorazepam 1 mg 10/14/23 17:32 10/15/23 11:05 Lorazepam 1 Mg Tablet PO 1 mg Q6H PRN Administration Anxiety Methadone HCl 25 mg 10/14/23 18:15 10/15/23 09:48 Methadone 10 Mg Tablet PO 25 mg BID AARTI Administration Methylphenidate HCl 20 mg 10/14/23 18:00 10/15/23 09:48 Methylphenidate 10 Mg Tablet PO 20 mg BID AARTI Administration Mirtazapine 15 mg 10/14/23 21:00 10/14/23 23:15 Mirtazapine 15 Mg Tablet PO 15 mg BEDTIME AARTI Administration Ondansetron HCl 4 mg 10/14/23 17:32 10/15/23 12:24 Ondansetron 2 Mg/Ml Sdv 2 Ml IVP 4 mg Q6H PRN Administration NAUSEA AND VOMITING PFSH Acute PFSH: Medical History Bleeding per rectum Femoral acetabular impingement History of drainage of abscess multiple History of substance abuse Narcotic abuse Social anxiety disorder Trauma in childhood Surgical History History of colonoscopy 2008 History of facial surgery 2013 History of liver biopsy 2012 No pertinent past surgical history Social History Smoking and tobacco/nicotine status: current every day tobacco/nicotine user cigarettes Packs smoked per day: 1 Years cigarettes smoked: 30 Quit status (tobacco/nicotine): has tried quititng Number of times tried to quit tobacco: 2 Second hand smoke exposure: Yes Alcohol intake: current Substance/Drug Use: current Substance/Drug use frequency: daily Other substance/drug use details: Fentanyl Current gender identity: Male Vitals/I&O/Wt Last Vital Signs Temp 98.3 F 10/15/23 11:50 Pulse 53 L 10/15/23 11:50 Resp 18 10/15/23 12:23 BP 120/68 10/15/23 12:22 Pulse Ox 92 10/15/23 11:50 O2 Del Method Room Air 10/15/23 11:50 10/14/23 10/15/23 10/15/23 22:59 06:59 14:59 Intake Total 900 / 900 1120 / 2020 490 / 490 Output Total 500 / 500 Balance 900 / 900 620 / 1520 490 / 490 Weight last 48 hrs Weight 78.426 kg Weight 77.474 kg Weight 72.575 kg Physical Exam Narrative: General: No acute distress, AO x3 HEENT: PERRLA, pupils bilaterally equal and reactive, pallors not present Chest: Normal vesicular breath sounds, no added sounds, equal good air entry bilaterally CVS: S1-S2 regular, no murmurs, no tachycardia, no gallops, no rubs Abdomen: Soft, nontender, no organomegaly, bowel sounds present Neuro: No focal motor deficits, no facial deformity, AO x3 Data 10/15/23 04:28 10/15/23 04:28 Other Labs: [facility] [address] Magnetic Resonance Report Signed Patient: Joby Jean Unit #: [id number] : 1975 Age/Sex: 48 / M ADM Date: 09/22/23 Loc: [facility] Room/Bed: Attending Dr: Antonia Kapoor MD Ordering Provider/Ordering MD: Brandyn Kapoor MD Date of Service: 09/22/23 Procedure(s): MR lumbar spine wo con* [id number] Accession Number(s): [id number] Report Number: [id number] WS: [id number] MRI LUMBAR SPINE NONCONTRAST TECHNIQUE: Sagittal T1, T2 and STIR imaging. Axial T1 and T2 imaging. Patient refused gadolinium contrast and reports prior contrast allergy. ? CLINICAL INFORMATION: follow up L1-L2 osteomyelitis and epidural changes COMPARISON: MRI 08/03/2023 and 07/16/2023 FINDINGS: Note if counting is performed from the craniocervical junction this results in the last lumbosacral segment considered S1 or L6. L5 will be considered the last lumbar vertebral body today in keeping with the prior numbering convention. Again seen are changes of discitis and osteomyelitis involving the L1-2 disc space with progressive erosion and collapse of the L2 vertebral body today. Loss of approximately 75% vertebral body height today. Associated paravertebral soft tissue edema. Retropulsion L1-2 results in moderate central canal stenosis with narrowing of the subarticular recess bilaterally. This is progressed compared to previous. No significant epidural abscess today considering lack of IV contrast. Redundancy of the cauda equina nerve rootlets at the L1 level above the stenosis. L1-L2: Moderate central canal stenosis due to bony retropulsion. Paravertebral soft tissue edema and inflammation. Moderate LEFT and mild RIGHT foraminal narrowing. L2-L3: Mild annular bulging. Mild facet arthropathy. Spinal canal and foramen are patent. L3-L4: Mild annular bulging. Mild facet arthropathy. Slight narrowing of the RIGHT subarticular recess. ?L4-L5: Mild annular bulging. Spinal canal and foramen are patent. Mild facet arthropathy. L5-S1: Mild annular bulging. Mild arthropathy. Spinal canal and foramen are patent. IMPRESSION: Some images degraded by patient motion. Gadolinium not administered described above. 1.? Persistent findings of discitis/osteomyelitis with interval compression of the L2 vertebral body with loss of approximately 75% vertebral body height. Retropulsion results in moderate central canal stenosis progressed compared to previous. Redundancy of the cauda equina nerve rootlets at the L1 level. Consider spine surgery consultation. 2.? Associated persistent paravertebral soft tissue edema at L1-2 with bone marrow edema. No visualized paravertebral abscess or drainable fluid collection. 3.? No apparent epidural abscess considering lack of gadolinium. 4.? No other significant change compared to previous. Launch?Image [place] [address] XRay Report Signed Patient: Joby Jean Unit #: [id number] : 1975 Age/Sex: 48 / M ADM Date: 10/14/23 Loc: ER Room/Bed: Attending Dr: Ordering Provider/Ordering MD: Yonis Jacques DO Date of Service: 10/14/23 Procedure(s): XR chest 1V portable [id number] Accession Number(s): [id number] Report Number: [id number] WS: [id number] Exam: XR chest 1V portable [id number] Date/Time of Exam: 10/14/2023 1:53 PM Reason For Exam: dyspnea/cough Comparison 08/10/2023. The lungs are clear and fully expanded. Normal cardiomediastinal silhouette. No pleural effusions. Regional bony elements appear normal. IMPRESSION: 1. No acute cardiopulmonary finding. [facility] [address] [place] [id number] [address] AZUCENA LOPEZ, HISTOLOGIST NAME: Joby Jean LOC: [facility] U #: [id number] AGE/SX: 48/M ROOM: [facility] RE10/14/[address]: Harry Gomez MD : 1975 BED: 2 DIS: FAX #: STATUS: ADM IN TLOC: Spec : [id number] Kathi: 10/14/23 Status: COMP Req : [id number] Recd: 10/14/23-[address]: Harry Gomez MD Ordered: UA Test Low Normal High Flag Reference Site Ua Mac Ur Color Dark Yellow Yellow Appearance Clear CLEAR pH 5 5-7 Spec. [place] 1.030 1.005-1.030 UA Prot Neg Negative Ur Glu UA Norm Normal Ur Ketone Negative Negative Blood Urine Neg Negative Ur Nitrate Negative Negative Ur Bilirubin Neg Negative Urobilinogen Norm Negative mg/dL Ur Estrella Esterase Negative Negative Micro: Microbiology 10/14/23 14:18 Blood Culture - Preliminary Blood NEGATIVE TO DATE 10/14/23 14:10 Blood Culture - Preliminary Blood A&P Assessment and plan (1) MRSA bacteremia: (2) History of substance abuse: (3) Hepatitis C: Patient preference to defer treatment until recovers from spine standpoint. (4) Traumatic compression fracture of L2 vertebra: (5) Acute osteomyelitis of lumbar spine: Plan Recent history as summarized above In Summary, patient with a remote history of IV drug use, currently on methadone maintenance,findings of discitis/osteomyelitis with interval compression of the L2 vertebral body with loss of approximately 75% vertebral body height. Retropulsion results in moderate central canal stenosis progressed compared to previous. Redundancy of the cauda equina nerve rootlets at the L1 level. Findings may represent sequelae of recently treated osteomyelitis vs persisting infection, especially concerning now with acute change in CRP without any other explanation or infection at other site Agree with spinal decompression and bone biopsy and cx Follow blood cx It appears he tolerated transition to bactrim poorly due to GI intolerance. Was prescribed linezolid for a short period instead however hesitant to take this due tod drug interactions. Isolate resistant to doxy and clinda previously. Given sudden change in CRP , cannot rule out possibility of persisting infection . Continue vancomycin while pending blood cx results. d/c ceftriaxone denies current IVDU TTE prevsiouly in july negative for vegetations Denies current IVDU Will follow Consult Attestations Medical Necessity Statement: per admitting Coding Level of Care Code Acute Code for Chg Fwd High MDM includes number and complexity of problems actively addressed during encounter, amount and/or complexity of data reviewed/ordered and described risk of complication, morbidity or mortality of management as documented Diagnoses MRSA bacteremia R78.81; B95.62 History of substance abuse F19.11 Hepatitis C B19.20 Traumatic compression fracture of L2 vertebra S32.020A Acute osteomyelitis of lumbar spine M46.26
[2023-10-15] MEDS: enoxaparin 40 mg/0.4 mL Syringe SUBCUT (18:03)
--- NOTE | 2023-10-15 18:12 | P.CONIM_ITS ---
Providers/Reason For Consult Consulting Physician/Specialty*: Dr FRANCY Paez/ cardiology Reason for Consult*: Patient with suspected endocarditis, to perform a MEME Requesting Physician: Dr Dieudonne Kapoor Attending Physician: Harry Gomez MD Primary Care Provider: Harjit Kohli DO History of Present Illness History of Present Illness Joby Jean is a 48 year old male, is admitted to the hospital with a recurrent osteomyelitis. This patient has a history of IV drug abuse and sharing of needles up until a year ago. Apparently he has been abusing drugs for most of his adult life. He was admitted to hospital in July with features of osteomyelitis involving the L1-L2 and MRSA positive bacteremia. He had 6 weeks of IV antibiotic treatment with Vancomycin/daptomycin followed by Bactrim. His transthoracic echocardiogram in July did not reveal any evidence of bacterial endocarditis. He has not had any IV drug abuse for the last 1 year. He presented with a history of fall and worsening back pain. He has some features of possible recurrence of the osteomyelitis with a compression fracture of the vertebrae. He is scheduled for possible decompression surgery, biopsy and culture. MEME was not stated to evaluate for any endocarditis especially in view of his history of IV drug abuse. He denies any chest pain or palpitations. No unusual shortness of breath. No history of endocarditis or heart murmur. He has no difficulty in swallowing. No history for any GI bleed. No history for any cardiac illnesses in the past. He had some QT prolongation with a higher dose of methadone. Since the dose of methadone was cut back, the QTc also came back to the normal range. Review of Systems Narrative: CONSTITUTIONAL: No fever or chills. EYES: No blurring of vision or other visual disturbances lately. ENT: No hoarseness of voice, auditory disturbances or sore throat. CARDIOVASCULAR: As mentioned above. RESPIRATORY: No significant cough. GASTROINTESTINAL: No hematemesis or melena. GENITOURINARY: No dysuria or hematuria. INTEGUMENTARY: No skin rashes or history of skin cancer. NEURO: No transient ischemic attacks or amaurosis. PSYCHIATRIC: No history of psychosis or major depression. HEMATOLOGIC: No bleeding disorders or significant anemia. ENDOCRINE: No history of polyuria or polydipsia. MUSCULOSKELETAL: Severe back pain ALLERGY/IMMUNOLOGY: As mentioned above. Medications/Allergies Home Medications Medication Instructions Recorded Confirmed Last Taken Type clonidine HCl 0.1 mg tablet 0.1 mg PO TID 02/16/23 10/14/23 10/14/23 History gabapentin 300 mg capsule 300 mg PO TID 06/29/23 10/14/23 10/14/23 History TLSO BRACE #1 ea 07/09/23 10/14/23 Unknown Rx cyclobenzaprine 10 mg tablet 10 mg PO TID PRN Muscle Spasm 08/03/23 10/14/23 Unknown History methylphenidate HCl 20 mg tablet 20 mg PO BID 08/03/23 10/14/23 10/14/23 History sulfamethoxazole 800 1 tab PO BID 90 days #180 tabs 09/23/23 10/14/23 10/14/23 Rx mg-trimethoprim 160 mg tablet (Bactrim DS) baclofen 10 mg tablet 10 mg PO BID PRN Pain 10/14/23 10/14/23 Unknown History famotidine 20 mg tablet 20 mg PO BID 10/14/23 10/14/23 Unknown History ibuprofen 600 mg tablet 300 mg PO Q6H PRN Pain 10/14/23 10/14/23 Unknown History lidocaine 5 % topical patch 1 patch topical [id number] 10/14/23 10/14/23 Unknown History lorazepam 1 mg tablet 1 mg PO Q6H PRN Anxiety 10/14/23 10/14/23 Unknown History methadone 10 mg tablet 50 mg PO DAILY 10/14/23 10/14/23 10/14/23 History mirtazapine 15 mg tablet 15 mg PO BEDTIME 10/14/23 10/14/23 10/13/23 History ondansetron 4 mg disintegrating 8 mg PO BID PRN Nausea 10/14/23 10/14/23 Unknown History tablet Allergies Allergy/AdvReac Type Severity Reaction Status Date / Time trazodone Allergy ADR-Nightma Verified 09/29/23 14:18 re haldol Allergy Severe ADR-Anxiety Uncoded 09/29/23 14:18 contrast dye Allergy Mild ADR-Itching Uncoded 09/29/23 14:18 Current Medications Generic Name Dose Route Start Last Admin Trade Name Freq PRN Reason Stop Dose Admin Baclofen 10 mg 10/14/23 17:32 10/14/23 23:15 Baclofen 10 Mg Tablet PO 10 mg BID PRN Administration Pain Clonidine HCl 0.1 mg 10/14/23 21:00 10/15/23 16:03 Clonidine 0.1 Mg Tablet PO Not Given TID AARTI Enoxaparin Sodium 40 mg 10/14/23 17:32 10/15/23 18:03 Enoxaparin 40 Mg/0.4 Ml Syringe SUBCUT 40 mg Q24H AARTI Administration Famotidine 20 mg 10/14/23 18:00 10/15/23 17:37 Famotidine 20 Mg Tablet PO Not Given BID AARTI Gabapentin 300 mg 10/14/23 21:00 10/15/23 16:04 Gabapentin 300 Mg Capsule PO 300 mg TID AARTI Administration Hydromorphone HCl 0.5 mg 10/14/23 17:32 10/15/23 18:05 Hydromorphone 1 Mg/Ml Inj 1 Ml IVP 0.5 mg Q4H PRN Administration PAIN Sodium Chloride 1,000 mls @ 100 mls/hr 10/14/23 17:32 10/15/23 16:06 Sodium Chloride 0.9% IV 100 mls/hr .Q10H AARTI Administration Vancomycin/PEG/NADA/Lysine/Water 1,250 mg in 250 mls @ 250 mls/hr 10/14/23 20:00 10/15/23 11:10 Vancocin IV Infused Q12H AARTI Infusion Lidocaine 1 patch 10/14/23 21:00 10/15/23 09:54 Lidocaine 5% Patch TOPICAL 1 patch [id number] AARTI Administration Lorazepam 1 mg 10/14/23 17:32 10/15/23 11:05 Lorazepam 1 Mg Tablet PO 1 mg Q6H PRN Administration Anxiety Methadone HCl 25 mg 10/14/23 18:15 10/15/23 18:03 Methadone 10 Mg Tablet PO 25 mg BID AARTI Administration Methylphenidate HCl 20 mg 10/14/23 18:00 10/15/23 18:04 Methylphenidate 10 Mg Tablet PO 20 mg BID AARTI Administration Mirtazapine 15 mg 10/14/23 21:00 10/14/23 23:15 Mirtazapine 15 Mg Tablet PO 15 mg BEDTIME AARTI Administration Ondansetron HCl 4 mg 10/14/23 17:32 10/15/23 12:24 Ondansetron 2 Mg/Ml Sdv 2 Ml IVP 4 mg Q6H PRN Administration NAUSEA AND VOMITING PFSH Acute PFSH: Medical History Bleeding per rectum Femoral acetabular impingement History of drainage of abscess multiple History of substance abuse Narcotic abuse Social anxiety disorder Trauma in childhood Surgical History History of colonoscopy 2009 History of facial surgery 2014 History of liver biopsy 2013 No pertinent past surgical history Social History Smoking and tobacco/nicotine status: current every day tobacco/nicotine user cigarettes Packs smoked per day: 1 Years cigarettes smoked: 30 Quit status (tobacco/nicotine): has tried quititng Number of times tried to quit tobacco: 2 Second hand smoke exposure: Yes Alcohol intake: current Substance/Drug Use: current Substance/Drug use frequency: daily Other substance/drug use details: Fentanyl Current gender identity: Male Vitals/I&O/Wt Last Vital Signs Temp 98.5 F 10/15/23 16:00 Pulse 63 10/15/23 16:00 Resp 18 10/15/23 18:05 BP 102/66 10/15/23 16:03 Pulse Ox 92 10/15/23 16:00 O2 Del Method Room Air 10/15/23 16:00 10/15/23 10/15/23 10/15/23 06:59 14:59 22:59 Intake Total 1120 / 2020 490 / 490 1120 / 1610 Output Total 500 / 500 Balance 620 / 1520 490 / 490 1120 / 1610 Weight last 48 hrs Weight 172 lb 14.4 oz Weight 170 lb 12.8 oz Weight 160 lb Physical Exam Narrative: GENERAL: The patient is alert and oriented times three. Not in any acute distress. HEENT: No significant pallor, icterus or lymphadenopathy.Oral cavity: There are no mucous membrane lesions. NECK: Trachea appears to be central. No masses noted. No JVD or thyromegaly appreciated. RESPIRATORY: Chest is symmetrical. No intercostals muscle retraction or any accessory muscle activation. There is no chest wall tenderness. Breath sounds are heard bilaterally. No rales or rhonchi heard. No evidence of any consolidation. BREASTS: Deferred. HEART: The heart sounds are normal. No S3 or S4. No significant murmurs. No pericardial rub ABDOMEN: No vessel pulsations or distention. No tenderness. No organomegaly appreciated. Bowel sounds are normally heard. : Deferred. RECTAL: Deferred. LYMPHATIC: No lymphadenopathy noted in the neck. EXTREMITIES: No edema or cyanosis. No clubbing. MUSCULOSKELETAL: No acute joint deformities or swelling SKIN: There are no significant rashes or ecchymosis NEUROPSYCHIATRIC: The patient is alert and oriented x3. Appears to be in a good mood. No tremors or rigidity noted. Data 10/15/23 04:28 10/15/23 04:28 Micro: Microbiology 10/14/23 14:18 Blood Culture - Preliminary Blood NEGATIVE TO DATE 10/14/23 14:10 Blood Culture - Preliminary Blood Other data: EKG from 10/14/2023 reveals a normal sinus rhythm with a normal ST Ts A&P Assessment and plan (1) Acute osteomyelitis of lumbar spine: Patient may have recurrence of osteomyelitis. Possibility of endocarditis is a consideration. (2) History of intravenous drug abuse: Patient has a history of IV drug abuse for many years and also sharing needles. He has not used any drugs for the last year or so. (3) MRSA bacteremia: This is based on the blood test in July. Current blood test is pending (4) Intractable low back pain: From the compression fracture/osteomyelitis Plan Other problems are History of hepatitis C On methadone program I discussed with the patient about the need for MEME to better evaluate for endocarditis. The risk of aspiration, bleeding, soft tissue injury, perforation of the stomach/esophagus and other concomitant complications were explained to the patient in detail. The patient understood this well and consented to proceed. The patient understood this well and consented to proceed. We will go ahead and schedule the patient for the procedure tomorrow. Based on the results of the above tests and the patient's clinical progress, further recommendations will be made. Thank you for the opportunity to evaluate this patient and make these recommendations Consult Attestations Medical Necessity Statement: Patient requires continued hospital stay for close monitoring and further man agement Coding Level of Care Code 74021 Diagnoses Acute osteomyelitis of lumbar spine M46.26 History of intravenous drug abuse F19.11 MRSA bacteremia R78.81; B95.62 Intractable low back pain M54.59
[2023-10-15] MEDS: mirtazapine 15 mg Tablet PO (20:54)
[2023-10-16] VITALS (20 sets, daily range): BP systolic 93–176; BP diastolic 57–98; PULSE 51–83; RESP 14–21; TEMP 36.2–37; O2SAT 90–100; BMI 23.4
[2023-10-16] MEDS: sodium chloride 0.9% 1,000 ML 100 ML IV (01:40)
[2023-10-16 07:11] LABS: C Reactive Protein 112.2 mg/L (0.0-4.9); Vancomycin Trough 15.5 ug/mL (10-15)
[2023-10-16 07:25] LABS: Creatine Phosphokinase 82 U/L (39-308)
[2023-10-16] MEDS: vancomycin 1,250 MG/250 ML PIGGYBACK 250 MG IV ×2 (08:36→19:55)
[2023-10-16] MEDS: famotidine 20 mg Tablet PO (08:43)
[2023-10-16] MEDS: gabapentin 300 mg Capsule PO ×3 (08:43→20:36)
[2023-10-16] MEDS: methylphenidate 10 mg Tablet 20 MG PO (08:43)
[2023-10-16] MEDS: methadone 10 mg Tablet 25 MG PO (08:44)
[2023-10-16] MEDS: lidocaine 5% Patch 1 PATCH TOPICAL (08:45)
--- NOTE | 2023-10-16 10:35 | ANES.PREANE2 ---
Pre-Anesthetic Assessment Height/Weight: Height 1.83 m Weight 78.426 kg Temp Pulse Resp BP Pulse Ox O2 Del Method 97.3 F L 58 L 18 129/87 95 Room Air 10/16/23 10:22 10/16/23 10:22 10/16/23 10:22 10/16/23 10:22 10/16/23 10:22 10/16/23 10:22 Preop Diagnosis: Lumbar stenosis, L2 compression fx Operation Date: 10/16/23 11:00 Proposed Procedures p MEME(Not Applicable) - Marleen Paez MD Operation Date: 10/16/23 15:40 Proposed Procedures p Lumbar Laminectomy(Not Applicable) - Jacob Lopez, DO Familial anesthetic complications: Woke up paralyzed during facial reconstructive surgery and couldn't move or talk Was Beta Sebastien taken within 24 hours: N/A Was Clonidine taken within 24 hours: N/A Last intake: Intake Last Liquid Date 10/15/23 Last Solid Date 10/15/23 Social Alcohol, Tobacco and No alcohol IV drug abuse Exam alert, oriented x 3, clear to auscultation bilaterally and regular rate & rhythm Airway Mallampati: Class II Dentition: other (multiple missing poor dentition) Hepatic Hep C Anesthetic Plan ASA status: 3 Anesthesia: MAC Risk of > 500 ml blood loss (7ml/kg in children): No Medications/Allergies Home Medications Medication Instructions Recorded Confirmed Last Taken Type clonidine HCl 0.1 mg tablet 0.1 mg PO TID 02/16/23 10/14/23 10/14/23 History gabapentin 300 mg capsule 300 mg PO TID 06/29/23 10/14/23 10/14/23 History TLSO BRACE #1 ea 07/09/23 10/14/23 Unknown Rx cyclobenzaprine 10 mg tablet 10 mg PO TID PRN Muscle Spasm 08/03/23 10/14/23 Unknown History methylphenidate HCl 20 mg tablet 20 mg PO BID 08/03/23 10/14/23 10/14/23 History sulfamethoxazole 800 1 tab PO BID 90 days #180 tabs 09/23/23 10/14/23 10/14/23 Rx mg-trimethoprim 160 mg tablet (Bactrim DS) baclofen 10 mg tablet 10 mg PO BID PRN Pain 10/14/23 10/14/23 Unknown History famotidine 20 mg tablet 20 mg PO BID 10/14/23 10/14/23 Unknown History ibuprofen 600 mg tablet 300 mg PO Q6H PRN Pain 10/14/23 10/14/23 Unknown History lidocaine 5 % topical patch 1 patch topical [id number] 10/14/23 10/14/23 Unknown History lorazepam 1 mg tablet 1 mg PO Q6H PRN Anxiety 10/14/23 10/14/23 Unknown History methadone 10 mg tablet 50 mg PO DAILY 10/14/23 10/14/23 10/14/23 History mirtazapine 15 mg tablet 15 mg PO BEDTIME 10/14/23 10/14/23 10/13/23 History ondansetron 4 mg disintegrating 8 mg PO BID PRN Nausea 10/14/23 10/14/23 Unknown History tablet Allergies Allergy/AdvReac Type Severity Reaction Status Date / Time trazodone Allergy ADR-Nightma Verified 09/29/23 14:18 re haldol Allergy Severe ADR-Anxiety Uncoded 09/29/23 14:18 contrast dye Allergy Mild ADR-Itching Uncoded 09/29/23 14:18 Current Medications Generic Name Dose Route Start Last Admin Trade Name Freq PRN Reason Stop Dose Admin Baclofen 10 mg 10/14/23 17:32 10/14/23 23:15 Baclofen 10 Mg Tablet PO 10 mg BID PRN Administration Pain Clonidine HCl 0.1 mg 10/14/23 21:00 10/16/23 08:42 Clonidine 0.1 Mg Tablet PO Not Given TID AARTI Enoxaparin Sodium 40 mg 10/14/23 17:32 10/15/23 18:03 Enoxaparin 40 Mg/0.4 Ml Syringe SUBCUT 40 mg Q24H AARTI Administration Famotidine 20 mg 10/14/23 18:00 10/16/23 08:43 Famotidine 20 Mg Tablet PO 20 mg BID AARTI Administration Gabapentin 300 mg 10/14/23 21:00 10/16/23 08:43 Gabapentin 300 Mg Capsule PO 300 mg TID AARTI Administration Hydromorphone HCl 0.5 mg 10/14/23 17:32 10/15/23 18:05 Hydromorphone 1 Mg/Ml Inj 1 Ml IVP 0.5 mg Q4H PRN Administration PAIN Sodium Chloride 1,000 mls @ 100 mls/hr 10/14/23 17:32 10/16/23 01:40 Sodium Chloride 0.9% IV 100 mls/hr .Q10H AARTI Administration Vancomycin/PEG/NADA/Lysine/Water 1,250 mg in 250 mls @ 250 mls/hr 10/14/23 20:00 10/16/23 08:36 Vancocin IV 250 mls/hr Q12H AARTI Administration Lidocaine 1 patch 10/14/23 21:00 10/16/23 08:45 Lidocaine 5% Patch TOPICAL 1 patch [id number] AARTI Administration Lorazepam 1 mg 10/14/23 17:32 10/15/23 11:05 Lorazepam 1 Mg Tablet PO 1 mg Q6H PRN Administration Anxiety Methadone HCl 25 mg 10/14/23 18:15 10/16/23 08:44 Methadone 10 Mg Tablet PO 25 mg BID AARTI Administration Methylphenidate HCl 20 mg 10/14/23 18:00 10/16/23 08:43 Methylphenidate 10 Mg Tablet PO 20 mg BID AARTI Administration Mirtazapine 15 mg 10/14/23 21:00 10/15/23 20:54 Mirtazapine 15 Mg Tablet PO 15 mg BEDTIME AARTI Administration Ondansetron HCl 4 mg 10/14/23 17:32 10/15/23 12:24 Ondansetron 2 Mg/Ml Sdv 2 Ml IVP 4 mg Q6H PRN Administration NAUSEA AND VOMITING PFSH Anesthesia Medical History Bleeding per rectum Femoral acetabular impingement History of drainage of abscess multiple History of substance abuse Narcotic abuse Social anxiety disorder Trauma in childhood Surgical History History of colonoscopy 2009 History of facial surgery 2014 History of liver biopsy 2013 No pertinent past surgical history Social History Smoking and tobacco/nicotine status: current every day tobacco/nicotine user cigarettes Packs smoked per day: 1 Years cigarettes smoked: 30 Quit status (tobacco/nicotine): has tried quititng Number of times tried to quit tobacco: 2 Second hand smoke exposure: Yes Alcohol intake: current Substance/Drug Use: current Substance/Drug use frequency: daily Other substance/drug use details: Fentanyl Current gender identity: Male Data Anesthesia 10/15/23 04:28 10/15/23 04:28 Short CBC 10/14/23 10/15/23 Range/Units 14:32 04:28 WBC 12.56 H 11.04 (3.29-11.43) 10^3/uL Hgb 11.30 9.70 L (11.27-16.99) g/dL Hct 36.4 L 30.5 L (37-53) % MCV 81.6 L 80.5 L (82-101) fl Plt Count 298 259 (157-399) 10^3/cmm Neut % (Auto) 83.4 75.4 % Neut # (Auto) 10.47 H 8.33 H (1.8-7.7) 10^3/uL BMP 10/14/23 10/15/23 14:32 04:28 Sodium 133 L 134 L Potassium 4.8 4.7 Chloride 93 L 97 L Carbon Dioxide 28 25 BUN 18 18 Creatinine 1.0 1.1 Glucose 99 89 Calcium 9.7 9.0 Cardiac Enzymes 10/15/23 10/16/23 Range/Units 04:28 06:36 Creatine Kinase 103 82 (39-308) U/L Liver Function 10/14/23 10/15/23 Range/Units 14:32 04:28 Total Bilirubin 0.4 0.3 (0.15-1.2) mg/dL AST 31 26 (0-40) U/L ALT 49 H 37 (0-41) U/L Alkaline Phosphatase 107 93 (40-130) U/L Albumin 3.9 3.3 L (3.5-5.2) g/dL Urine 10/14/23 Range/Units 17:40 Urine Color Dark yellow (Yellow) Urine Appearance Clear (CLEAR) Urine pH 5 (5-7) Ur Specific [place] 1.030 (1.005-1.030) Urine Protein Neg (Negative) Urine Glucose (UA) Norm (Normal) Urine Ketones Negative (Negative) Urine Nitrate Negative (Negative) Urine Bilirubin Neg (Negative) Ur Leukocyte Esterase Negative (Negative) Coags 10/14/23 10/14/23 10/14/23 14:32 14:32 14:32 ESR 82 H PT 13.90 INR 1.03 C-Reactive Protein 79.0 H 10/15/23 10/16/23 04:28 06:36 ESR PT INR C-Reactive Protein 98.4 H 112.2 H Microbiology 10/16/23 06:42 Blood Culture - Preliminary Blood SPECIMEN COLLECTED 10/16/23 06:36 Blood Culture - Preliminary Blood SPECIMEN COLLECTED 10/14/23 14:18 Blood Culture - Preliminary Blood NEGATIVE TO DATE 10/14/23 14:10 Blood Culture - Preliminary Blood Cardiac Studies: Echocardiogram 08/04/23
--- NOTE | 2023-10-16 11:00 | USCV_ITS ---
Joby Jean Age: 48 Gender: M : 1975 Exam Date: 10/16/2023 11:19 Ordering Phys: Antonia Kapoor MD Technologist: NILA Exam Location: [facility] – [place] Indication: RECCURENT BACTERIMA BP: 130 / 82 HR: Rhythm: Sinus Technical Quality: MEASUREMENTS (Male / Female) Normal Values Medications Administered by the anesthesia service. Please refer to the report Complications None Proc. Components The patient was brought to the MEME examination room in a fasting state after obtaining an informed consent. The MEME probe was passed into the posterior pharynx , mid-esophagus, distal esophagus, and gastric fundus. MEME was performed at multiple levels. The patient tolerated the procedure well and there were no complications. FINDINGS Left Ventricle Appeared to be normal size and ejection fraction. No intracavitary masses. Right Ventricle Normal right ventricular size and systolic function. Right Atrium Appears to be normal size. Residual eustachian valve was noted with no masses or vegetation Left Atrium No intracavitary masses. LA Appendage Normal size and contractility with no intracavitary mass IA Septum Appears to be intact with no evidence of any ASD or VSD by color-flow Doppler examination or by saline contrast injection Mitral Valve Trace to mild mitral valve regurgitation. Aortic Valve Trileaflet valve with no mass or vegetations Tricuspid Valve Normal leaflets with no masses or vegetations Pulmonic Valve No masses or vegetations noted Pericardium No pericardial effusion. Aorta No unstable plaques or lesions CONCLUSIONS 1. No intracavitary masses or vegetations noted 2. Trace to mild mitral regurgitation 3. Normal LV size ejection fraction of around 60% 4. Intact interatrial septum 4. Normal left atrial appendage and contractility. 5. No unstable plaques or lesions in the aorta ascending, arch and the descending aorta Dr Marleen Paez MD [facility] (Electronically Signed) Final Date: 16 October 2023 21:17 S
--- NOTE | 2023-10-16 11:01 | W.PM.OPSUD ---
Surgery/Procedure H&P Update DATE OF PROCEDURE: October 16, 2023 DATE H&P PERFORMED: 10/15/23 H&P UPDATE INFORMATION: I have reviewed H&P completed within last 30 days, I have examined patient prior to procedure and No changes to prior documentation PREOP DIAGNOSIS: MRSA bacteremia, rule out endocarditis PRIMARY INDICATION FOR PROCEDURE: same as above/ recurrent osteomyelitis PLANNED PROCEDURE: Operation Date: 10/16/23 11:00 Proposed Procedures p MEME(Not Applicable) - Marleen Paez MD Operation Date: 10/16/23 15:40 Proposed Procedures p Lumbar Laminectomy(Not Applicable) - Jacob Lopez DO
--- NOTE | 2023-10-16 11:41 | PM.PN ---
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: patient had TTE today. He was found to have trace to mild mitral regurgitation. No masses or vegetations were noted on the valve Medications: Medication Review Details: Current Medications Acetaminophen (Acetaminophen 325 Mg Tablet) 650 mg PO Q6H PRN PRN Reason: Mild/Mod Pain Or Temp >/= 101 Baclofen (Baclofen 10 Mg Tablet) 10 mg PO BID PRN PRN Reason: Pain Last Admin: 10/14/23 23:15 Dose: 10 mg Clonidine HCl (Clonidine 0.1 Mg Tablet) 0.1 mg PO TID [facility] Last Admin: 10/16/23 08:42 Dose: Not Given Cyclobenzaprine HCl (Cyclobenzaprine 10 Mg Tablet) 10 mg PO TID PRN PRN Reason: Muscle Spasm Enoxaparin Sodium (Enoxaparin 40 Mg/0.4 Ml Syringe) 40 mg SUBCUT Q24H [facility] Last Admin: 10/15/23 18:03 Dose: 40 mg Famotidine (Famotidine 20 Mg Tablet) 20 mg PO BID [facility] Last Admin: 10/16/23 08:43 Dose: 20 mg Gabapentin (Gabapentin 300 Mg Capsule) 300 mg PO TID [facility] Last Admin: 10/16/23 08:43 Dose: 300 mg Hydromorphone HCl (Hydromorphone 1 Mg/Ml Inj 1 Ml) 0.5 mg IVP Q4H PRN PRN Reason: PAIN Last Admin: 10/15/23 18:05 Dose: 0.5 mg Sodium Chloride (Sodium Chloride 0.9%) 1,000 mls @ 100 mls/hr IV .Q10H [facility] Last Admin: 10/16/23 01:40 Dose: 100 mls/hr Vancomycin/PEG/NADA/Lysine/Water (Vancocin) 1,250 mg in 250 mls @ 250 mls/hr IV Q12H [facility] Last Admin: 10/16/23 08:36 Dose: 250 mls/hr Sodium Chloride (Sodium Chloride 0.9%) 1,000 mls @ 30 mls/hr IV .Q24H [facility] Stop: 10/17/23 10:29 Lidocaine (Lidocaine 5% Patch) 1 patch TOPICAL [id number] [facility] Last Admin: 10/16/23 08:45 Dose: 1 patch Lidocaine HCl (Lidocaine 1% Inj 10 Ml (Per Ml)) 0.1 ml INTRADERMA PRN PRN PRN Reason: anesthetic prior to IV start Lidocaine HCl (Lidocaine 2% Viscous 15 Ml Udc) 1 ml TOPICAL PRN PRN PRN Reason: Anesthetic prior to IV start Lorazepam (Lorazepam 1 Mg Tablet) 1 mg PO Q6H PRN PRN Reason: Anxiety Last Admin: 10/15/23 11:05 Dose: 1 mg Methadone HCl (Methadone 10 Mg Tablet) 25 mg PO BID [facility] Last Admin: 10/16/23 08:44 Dose: 25 mg Methylphenidate HCl (Methylphenidate 10 Mg Tablet) 20 mg PO BID [facility] Last Admin: 10/16/23 08:43 Dose: 20 mg Midazolam HCl (Midazolam 1 Mg/Ml Inj 2 Ml) 2 mg IVP Q5M PRN PRN Reason: Preop Anxiety Mirtazapine (Mirtazapine 15 Mg Tablet) 15 mg PO BEDTIME [facility] Last Admin: 10/15/23 20:54 Dose: 15 mg Morphine Sulfate (Morphine 4 Mg/Ml Sdv 1 Ml) 0 mg IVP Q5M PRN PRN Reason: Breakthrough Pain PACU PhaseII Ondansetron HCl (Ondansetron 2 Mg/Ml Sdv 2 Ml) 4 mg IVP Q6H PRN PRN Reason: NAUSEA AND VOMITING Last Admin: 10/15/23 12:24 Dose: 4 mg Ondansetron HCl (Ondansetron 2 Mg/Ml Sdv 2 Ml) 4 mg IVP Q15M PRN PRN Reason: Nausea/Vomiting PACU PHASE II Vitals/I&O/Wt Last Vital Signs Temp 97.1 F L 10/16/23 11:32 Pulse 60 10/16/23 11:32 Resp 18 10/16/23 11:32 BP 103/59 10/16/23 11:32 Pulse Ox 95 10/16/23 11:32 O2 Del Method Room Air 10/16/23 11:32 10/15/23 10/16/23 10/16/23 22:59 06:59 14:59 Intake Total 1120 / 1610 1206.667 / 2816.667 Output Total 400 / 400 1200 / 1600 Balance 720 / 1210 6.667 / 1216.667 Weight last 48 hrs Weight 172 lb 14.4 oz Weight 172 lb 14.4 oz Weight 170 lb 12.8 oz Weight 160 lb Physical Exam Narrative: GENERAL: The patient is alert and oriented times three. Not in any acute distress. HEENT: No significant pallor, icterus or lymphadenopathy.Oral cavity: There are no mucous membrane lesions. NECK: Trachea appears to be central. No masses noted. No JVD or thyromegaly appreciated. RESPIRATORY: Chest is symmetrical. No intercostals muscle retraction or any accessory muscle activation. There is no chest wall tenderness. Breath sounds are heard bilaterally. No rales or rhonchi heard. No evidence of any consolidation. BREASTS: Deferred. HEART: The heart sounds are normal. No S3 or S4. No significant murmurs. No pericardial rub ABDOMEN: No vessel pulsations or distention. No tenderness. No organomegaly appreciated. Bowel sounds are normally heard. : Deferred. RECTAL: Deferred. LYMPHATIC: No lymphadenopathy noted in the neck. EXTREMITIES: No edema or cyanosis. No clubbing. MUSCULOSKELETAL: No acute joint deformities or swelling SKIN: There are no significant rashes or ecchymosis NEUROPSYCHIATRIC: The patient is alert and oriented x3. Appears to be in a good mood. No tremors or rigidity noted. Data 10/15/23 04:28 10/15/23 04:28 Micro: Microbiology 10/16/23 06:42 Blood Culture - Preliminary Blood SPECIMEN COLLECTED 10/16/23 06:36 Blood Culture - Preliminary Blood SPECIMEN COLLECTED 10/14/23 14:18 Blood Culture - Preliminary Blood NEGATIVE TO DATE 10/14/23 14:10 Blood Culture - Preliminary Blood A&P Assessment and plan (1) MRSA bacteremia: based on the MEME, he has no evidence of endocarditis, at this point (2) Acute osteomyelitis of lumbar spine: Patient may have recurrence of osteomyelitis. (3) History of intravenous drug abuse: Patient has a history of IV drug abuse for many years and also sharing needles. He has not used any drugs for the last year or so. (4) Intractable low back pain: most likelyFrom the compression fracture/osteomyelitis Plan Other problems are History of hepatitis C On methadone program management as per the primary team I may sign off at this time Attestations Medical Necessity Statement*: as per the primary Coding Level of Care Code 05201 Diagnoses MRSA bacteremia R78.81; B95.62 Acute osteomyelitis of lumbar spine M46.26 History of intravenous drug abuse F19.11 Intractable low back pain M54.59
[2023-10-16] MEDS: ondansetron 2 mg/ML SDV 2 mL 4 MG IVP ×3 (12:36→17:37)
--- NOTE | 2023-10-16 13:07 | P.PN_ITS ---
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: Patient was seen this morning, denies any fevers, chills, pain is under control, currently n.p.o. for his transesophageal echocardiogram, we discussed his positive blood cultures we will continue to monitor him, Vitals/I&O/Wt Last Vital Signs Temp 97.1 F L 10/16/23 11:32 Pulse 57 L 10/16/23 12:00 Resp 16 10/16/23 12:00 BP 110/72 10/16/23 12:00 Pulse Ox 95 10/16/23 12:00 O2 Del Method Room Air 10/16/23 12:00 10/15/23 10/16/23 10/16/23 22:59 06:59 14:59 Intake Total 1120 / 1610 1206.667 / 2816.667 Output Total 400 / 400 1200 / 1600 Balance 720 / 1210 6.667 / 1216.667 Weight last 48 hrs Weight 78.426 kg Weight 78.426 kg Weight 77.474 kg Physical Exam Const: COMMON NORMALS: no acute distress and patient oriented x3 Resp: COMMON NORMALS: normal respiratory effort, No retractions, No use of accessory muscles and clear to auscultation bilaterally AUSCULTATION: clear to auscultation bilaterally Cardio: COMMON NORMALS: regular rate, regular rhythm, S1 normal heart sound present and S2 normal heart sound present RATE: regular rate RHYTHM: regular rhythm HEART SOUNDS: S1 normal heart sound present and S2 normal heart sound present GI: COMMON NORMALS: Normal to inspection, nondistended, normoactive bowel sounds present and non-tender Extremity: COMMON NORMALS: no pedal edema Neuro: COMMON NORMALS: patient oriented x3 Psych: COMMON NORMALS: mental status grossly normal Data 10/15/23 04:28 10/15/23 04:28 Micro: Microbiology 10/16/23 06:42 Blood Culture - Preliminary Blood SPECIMEN COLLECTED 10/16/23 06:36 Blood Culture - Preliminary Blood SPECIMEN COLLECTED 10/14/23 14:18 Blood Culture - Preliminary Blood NEGATIVE TO DATE 10/14/23 14:10 Blood Culture - Preliminary Blood A&P Assessment and plan (1) Traumatic compression fracture of L2 vertebra: (2) Acute osteomyelitis of lumbar spine: (3) Chronic pain: (4) Methadone dependence: (5) Nicotine dependence, unspecified, uncomplicated: (6) Intractable low back pain: (7) Gram-positive bacteremia: (8) History of intravenous drug abuse: Plan intractable low back pain -Concerns for discitis, lumbar osteomyelitis, possible underlying abscess, pathological fracture -History of lumbar osteomyelitis, ? Pathologic fracture, ? MRSA bacteremia, ? Repeat blood cultures 1 out of 4 blood cultures positive gram-positive, co ncerns for recurrent bacteremia ? At LTAC in [place], completed daptomycin 09/16/2023 MRI lumbar spine 09/22/2023 -IMPRESSION: Some images degraded by patient motion. Gadolinium not administered described above. 1.? Persistent findings of discitis/osteomyelitis with interval compression of the L2 vertebral body with loss of approximately 75% vertebral body height. Retropulsion results in moderate central canal stenosis progressed compared to previous. Redundancy of the cauda equina nerve rootlets at the L1 level. Consider spine surgery consultation. 2.? Associated persistent paravertebral soft tissue edema at L1-2 with bone marrow edema. No visualized paravertebral abscess or drainable fluid collection. 3.? No apparent epidural abscess considering lack of gadolinium. 4.? No other significant change compared to previous ? X-ray lumbar spine IMPRESSION: 1. New interval osseous destruction of the lower endplate of L1 apparently secondary to L1-2 discitis and osteomyelitis. 2. Progressive destruction of the L2 vertebral body with only the lower endplate of the vertebra remaining. There is also significant osseous destruction of the L2 pedicles. 3. There appears to be significant L1 retropulsion with some compromise of the spinal canal. ? Plan, ? Presents with acute low back pain, ? No alarm symptoms, no saddle or perianal anesthesia, no urinary or bowel incontinence, ? Pain control continue home methadone 25 mg twice daily ? Add Dilaudid 0.5 mg every 4 hours as needed, ? Continue home methylphenidate 20 mg twice daily, continue home lorazepam 1 mg p.o. every 6 hours as needed, ? He did take 300 mg of ibuprofen today, avoid NSAIDs ? Blood cultures, 1 out of 4 blood cultures positive, continue vancomycin ? follow ESR, CRP, Pro-Abhijit, ?continue antibiotics vancomycin, Rocephin, ? MEME pending, ? Infectious disease on consult ? Orthopedic service on consult ? Chronic pain, continue home medications, ? Full code, ?, Lovenox for DVT prophylaxis Attestations Medical Necessity Statement*: Patient requires hospitalization for recurrent gram-positive bacteremia, with concerns for recurrent discitis, osteomyelitis, pathologic fracture, requiring MEME, surgical intervention, infectious disease consultation Diagnoses Traumatic compression fracture of L2 vertebra S32.020A Acute osteomyelitis of lumbar spine M46.26 Chronic pain G89.29 Methadone dependence F11.20 Nicotine dependence, unspecified, uncomplicated F17.200 Intractable low back pain M54.59 Gram-positive bacteremia R78.81 History of intravenous drug abuse F19.11
[2023-10-16] MEDS: sodium chloride 0.9% 1,000 ML 30 ML IV (13:43)
--- NOTE | 2023-10-16 15:26 | W.PM.OPSUD ---
Surgery/Procedure H&P Update DATE OF PROCEDURE: October 16, 2023 DATE H&P PERFORMED: 10/15/23 H&P UPDATE INFORMATION: I have reviewed H&P completed within last 30 days, I have examined patient prior to procedure and No changes to prior documentation PREOP DIAGNOSIS: MRSA bacteremia, rule out endocarditis PLANNED PROCEDURE: Operation Date: 10/16/23 11:00 Proposed Procedures p MEME(Not Applicable) - Marleen Paez MD Operation Date: 10/16/23 15:40 Proposed Procedures p Lumbar Laminectomy(Not Applicable) - Jacob Lopez DO
--- NOTE | 2023-10-16 15:50 | XR_ITS ---
WS: [id number] INTRAOPERATIVE TECHNIQUE: 3 Spot fluoroscopic images for intraoperative purposes. FLUOROSCOPY TIME: 5.9 seconds CLINICAL INFORMATION: OR PICS COMPARISON: None. FINDINGS: Localization marker projected over the L1 vertebral body IMPRESSION: Images obtained for intraoperative purposes.
[2023-10-16] MEDS: lidocaine-epi 1% 20 mL INJ INJECTION (16:26)
[2023-10-16] MEDS: vancomycin 1,000 MG SDV 1000 MG XX (16:40)
--- NOTE | 2023-10-16 17:19 | P.OP_ITS ---
Operative Report Date of procedure: October 16, 2023 Pre-op diagnosis: Osteomyelitis L1-2 disc base. Procedure done: 1. L1-2 laminectomy with partial facetectomy 2. L2-3 laminectomy with partial facetectomy 3. Tissue biopsy from lumbar spine Specimens removed/disposition: Tissue from epidural space and interspinous ligament and muscle Aerobic anaerobic from L1-2 disc space Surgeon: Jacob Lopez DO Creative Specialist: James Lerma Creative Specialist: The assistant speech language pathologist, James Lerma, KEE was needed for his expertise under the microscope. He was important and necessary throughout the procedure to complete in a safe and timely manner. He assisted with patient positioning prepping and draping tissue retraction suctioning of the operative field protection of the dural sac and tissue closure Estimated blood loss (mL): 100 Procedure: 1. L1-2 laminectomy with partial facetectomy 2. L2-3 laminectomy with partial facetectomy 3. Tissue biopsy from lumbar spine Please read the op suite after undergoing anesthesia was placed in the supine position. All his impingement well-padded. Patient's prepped and draped normal sterile fashion. Skin incision made from L1 down to top of L3. Subperiosteal dissection was made out to the facet joints at L1-2 and L2-3. Retractors were placed microscope was brought in. Rongeur was used to take out the spinous process of L1 and L2. Laminectomy was performed using high-speed bur at L1 as well as L2. Kerrison rongeurs were used to take down the lamina as well as L1 and L2. Next ligamentum flavum was taken down from L1-L2 and L2-L3. Medial aspects of bilateral facet joints at L1-2 and L2-3 were taken down using the high-speed bur. The Kerrison rongeur was used to remove the remaining medial aspect of facet joint in order to facilitate decompression of the dura. Patient had a kyphotic deformity. The tissue samples were taken from the muscle above the lamina. This was chronically infected tissue. The tissue was also taken from the facet of L2-3 look to be chronically infected as well. Aerobic anaerobic specimens were taken from disc base of L1-2. Wounds were irrigated vancomycin powder was placed in the wound. Deep drain was placed. Wound was closed in layered fashion with 0 Vicryl and 2-0 Vicryl and nylon suture. Sterile dressings were applied patient was transferred to the PACU in stable condition.
[2023-10-16] MEDS: HYDROmorphone 1 mg/mL INJ 1 mL 0.5 MG IVP (17:37)
--- NOTE | 2023-10-16 17:45 | ANE.PACU2 ---
Inpatient post-anesthesia follow up: Airway intact: Yes Vital signs: Temperature 99.3 F Pulse Rate 62 Respiratory Rate 19 Blood Pressure 129/77 Pulse Oximetry 94 Oxygen Delivery Me thod Room Air Oxygen Flow Rate 6 Fraction of Inspir ed Oxygen Hydration adequate: Yes Nausea and vomiting: No Pain level: 1 Mental status: Baseline Additional Comments: Patient brought from GI lab after MEME to pre-op for laminectomy and then posted in PACU after laminectomy
[2023-10-16] MEDS: ketorolac 30 mg/mL INJ IVP (18:22)
[2023-10-16] MEDS: LORazepam 1 mg Tablet PO (18:39)
--- NOTE | 2023-10-16 18:49 | P.MISC_ITS ---
Miscellaneous Note Purpose of Documentation: GPCs on 10/14 pending identification. MEME negative for vegetations per disc ussion with cardiology. Patient planned for laminectomy today. Continue vancomycin
--- NOTE | 2023-10-16 18:49 | PM.MISC ---
Miscellaneous Note Purpose of Documentation: GPCs on 10/14 pending identification. MEME negative for vegetations per discussion with cardiology. Patient planned for laminectomy today. Continue vancomycin
[2023-10-16] MEDS: HYDROcodone-acetaminophen 5-325 mg Tablet PO (19:53)
[2023-10-16] MEDS: mirtazapine 15 mg Tablet PO (20:36)
[2023-10-17] VITALS (11 sets, daily range): BP systolic 111–130; BP diastolic 70–80; PULSE 62–74; RESP 16–20; TEMP 36.7–37.4; O2SAT 93–98
--- NOTE | 2023-10-17 01:26 | PC.NURSE ---
This nurse found one vape pen and one dab pen in the pts possession. When asked if it can be put in the pyxis for safety reasons, the pt verblized that was fine. Both devices were put in the pyxis machine and the pt was fully informed and signed the patient valuable envelope sheet form for consent.
--- NOTE | 2023-10-17 06:59 | PM.PN ---
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: POD 1 Patient complaining of back pain. Denies chest pain, shortness of breath, headaches. Vitals/I&O/Wt Last Vital Signs Temp 98.6 F 10/17/23 05:00 Pulse 66 10/17/23 05:00 Resp 17 10/17/23 05:00 BP 130/80 10/17/23 05:00 Pulse Ox 98 10/17/23 05:00 O2 Del Method Room Air 10/16/23 21:50 O2 Flow Rate 6 10/16/23 17:20 10/16/23 10/16/23 10/17/23 14:59 22:59 06:59 Intake Total 2461 / 2461 130 / 2591 Output Total 60 / 70 Balance 2451 / 2451 70 / 2521 Weight last 48 hrs Weight 176 lb 1 oz Weight 172 lb 14.4 oz Physical Exam Narrative: Patient presents alert and oriented x3 with a good general appearance normal mood and affect. Normal coordination normal stability. Mild tenderness around the incisional site with the incision appear to be healing nicely. No signs of erythema or drainage. No signs of infection. Patient denies any fevers or chills. 5/5 motor strength both lower extremities with negative straight leg raise bilaterally. Calves are supple no medial thigh tenderness. Pulses are 2+ at the dorsalis pedis and posterior tibial region. Good capillary refill throughout normal sensation light touch both lower extremities. Data 10/15/23 04:28 10/15/23 04:28 Micro: Microbiology 10/16/23 06:42 Blood Culture - Preliminary Blood NEGATIVE TO DATE 10/16/23 06:36 Blood Culture - Preliminary Blood NEGATIVE TO DATE A&P Assessment and plan (1) Intractable low back pain: Physical therapy to work with mobilization. No bending lifting or twisting. We will set him up for a TLSO brace. Discontinue Hemovac drain. (2) Gram-positive bacteremia: Attestations Medical Necessity Statement*: Defer to medical team Coding Level of Care Code Acute Code for [facility] Diagnoses Intractable low back pain M54.59 Gram-positive bacteremia R78.81
[2023-10-17] MEDS: HYDROmorphone 1 mg/mL INJ 1 mL 0.5 MG IVP ×3 (07:01→18:24)
[2023-10-17 07:07] LABS: Basophils % 0.4 %; Eosinophils # 0.2 10^3/uL (0.0-0.8); Eosinophils % 2.9 %; Hematocrit 32.8 % (37-53); Lymphocytes # 1.3 10^3/uL (0.8-4.8); Lymphocytes % 16.2 %; Mean Corpuscular HGB Conc 30.5 g/dL (30-55); Mean Corpuscular Hemoglobin 25.3 pg (27-33); Mean Platelet Volume 8.7 fL (7.4-10.4); Monocytes # 0.5 10^3/uL (0.2-0.9); Monocytes % 6.2 %; Nucleated Red Blood Cells % 0 %; Platelet Count 321 10^3/cmm (157-399); Red Blood Count 3.95 10^6/uL (3.85-5.65); White Blood Count 7.96 10^3/uL (3.29-11.43)
[2023-10-17 07:32] LABS: C Reactive Protein 73.1 mg/L (0.0-4.9)
[2023-10-17 07:33] LABS: Alanine Aminotransferase 37 U/L (0-41); Albumin Level 3.5 g/dL (3.5-5.2); Alkaline Phosphatase 97 U/L (40-130); Aspartate Amino Transferase 31 U/L (0-40); Blood Urea Nitrogen 14 mg/dL (6-20); Calcium 9.1 mg/dL (8.5-10.5); Carbon Dioxide 27 mmol/L (22-29); Chloride 104 mmol/L (98-107); Globulin 4.2 g/dL (1.3-4.6); Glomerular Filtration Rate 89.7 mL/min (90-130); Glucose 88 mg/dL (65-115); Osmolality Calculated 290 mOsm/kg (285-295); Sodium 140 mmol/L (136-145); Total Bilirubin 0.2 mg/dL (0.15-1.2); Total Protein 7.7 g/dL (6.6-8.7)
[2023-10-17 07:51] LABS: Creatine Phosphokinase 143 U/L (39-308)
[2023-10-17] MEDS: methylphenidate 10 mg Tablet 20 MG PO ×2 (08:29→18:22)
[2023-10-17] MEDS: docusate sodium 100 mg Capsule PO ×2 (08:31→18:21)
[2023-10-17] MEDS: methadone 10 mg Tablet 25 MG PO ×2 (08:31→18:22)
[2023-10-17] MEDS: famotidine 20 mg Tablet PO ×2 (08:32→18:22)
[2023-10-17] MEDS: cloNIDine 0.1 mg Tablet PO ×2 (08:35→14:55)
[2023-10-17] MEDS: gabapentin 300 mg Capsule PO ×3 (08:35→20:01)
--- NOTE | 2023-10-17 10:46 | PC.PT ---
Pt was attempted to be evaluated but refused to move due to pain so out of control. Pt has a TLSO brace in the room but does not want to move to put it on. Will attempt another time when pain is more under control.
--- NOTE | 2023-10-17 11:50 | PM.PN ---
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: Patient was seen this morning, he is lost his IV, he is complaining of pain he did receive methadone this morning, observed his surgical site, looks clean and dry, denies any nausea, no vomiting, abdominal pain, discussed his transesophageal echocardiogram, discussed continue to monitor him as inpatient monitoring his blood cultures, will need IV antibiotics, pain control, Vitals/I&O/Wt Last Vital Signs Temp 99.3 F 10/17/23 07:59 Pulse 62 10/17/23 07:59 Resp 19 H 10/17/23 07:59 BP 129/77 10/17/23 08:35 Pulse Ox 94 10/17/23 07:59 O2 Del Method Room Air 10/17/23 07:59 O2 Flow Rate 6 10/16/23 17:20 10/16/23 10/17/23 10/17/23 22:59 06:59 14:59 Intake Total 2461 / 2461 130 / 2591 Output Total 60 / 70 Balance 2451 / 2451 70 / 2521 Weight last 48 hrs Weight 79.861 kg Weight 78.426 kg Physical Exam Const: COMMON NORMALS: no acute distress and patient oriented x3 Resp: COMMON NORMALS: normal respiratory effort, No retractions, No use of accessory muscles and clear to auscultation bilaterally AUSCULTATION: clear to auscultation bilaterally Cardio: COMMON NORMALS: regular rate, regular rhythm, S1 normal heart sound present and S2 normal heart sound present RATE: regular rate RHYTHM: regular rhythm HEART SOUNDS: S1 normal heart sound present and S2 normal heart sound present GI: COMMON NORMALS: Normal to inspection, nondistended, normoactive bowel sounds present Extremity: COMMON NORMALS: no pedal edema Neuro: COMMON NORMALS: patient oriented x3 Psych: COMMON NORMALS: mental status grossly normal Data 10/17/23 06:53 10/17/23 06:53 Micro: Microbiology 10/16/23 16:42 Anaerobic Culture - Preliminary Tissue 10/16/23 06:42 Blood Culture - Preliminary Blood NEGATIVE TO DATE 10/16/23 06:36 Blood Culture - Preliminary Blood NEGATIVE TO DATE A&P Assessment and plan (1) Traumatic compression fracture of L2 vertebra: (2) Acute osteomyelitis of lumbar spine: (3) Chronic pain: (4) Methadone dependence: (5) Nicotine dependence, unspecified, uncomplicated: (6) Intractable low back pain: (7) Gram-positive bacteremia: (8) History of intravenous drug abuse: Plan intractable low back pain -Concerns for discitis, lumbar osteomyelitis, possible underlying abscess, pathological fracture -History of lumbar osteomyelitis, ? Pathologic fracture, ? MRSA bacteremia, ? Repeat blood cultures 1 out of 4 blood cultures positive gram-positive, concerns for recurrent bacteremia ? At LTAC in [place], completed daptomycin 09/16/2023 MRI lumbar spine 09/22/2023 -IMPRESSION: Some images degraded by patient motion. Gadolinium not administered described above. 1.? Persistent findings of discitis/osteomyelitis with interval compression of the L2 vertebral body with loss of approximately 75% vertebral body height. Retropulsion results in moderate central canal stenosis progressed compared to previous. Redundancy of the cauda equina nerve rootlets at the L1 level. Consider spine surgery consultation. 2.? Associated persistent paravertebral soft tissue edema at L1-2 with bone marrow edema. No visualized paravertebral abscess or drainable fluid collection. 3.? No apparent epidural abscess considering lack of gadolinium. 4.? No other significant change compared to previous ? X-ray lumbar spine IMPRESSION: 1. New interval osseous destruction of the lower endplate of L1 apparently secondary to L1-2 discitis and osteomyelitis. 2. Progressive destruction of the L2 vertebral body with only the lower endplate of the vertebra remaining. There is also significant osseous destruction of the L2 pedicles. 3. There appears to be significant L1 retropulsion with some compromise of the spinal canal. ? Transesophageal echocardiogram CONCLUSIONS ?1.? No intracavitary masses or vegetations noted ?2.? Trace to mild mitral regurgitation ?3.? Normal LV size ejection fraction of around 60% ?4.? Intact interatrial septum ?4.? Normal left atrial appendage and contractility. ?5.? No unstable plaques or lesions in the aorta ascending, arch ?and the descending aorta ? Status post, postoperative day 1 Procedure done: 1.? L1-2 laminectomy with partial facetectomy 2.? L2-3 laminectomy with partial facetectomy 3.? Tissue biopsy from lumbar spine ? Plan, ? Presents with acute low back pain, ? No alarm symptoms, no saddle or perianal anesthesia, no urinary or bowel incontinence, ? Pain control continue home methadone 25 mg twice daily ? Add Dilaudid 0.5 mg every 4 hours as needed, ? Continue home methylphenidate 20 mg twice daily, continue home lorazepam 1 mg p.o. every 6 hours as needed, ? Blood cultures, 1 out of 4 blood cultures positive, continue vancomycin ? follow ESR, CRP, Pro-Abhijit, ?continue antibiotics vancomycin ? Follow surgical site cultures -Patient will likely need PICC line placement, IV antibiotics for least 6 weeks, placement to long-term care facility on discharge ? Infectious disease on consult ? Orthopedic service on consult ? Chronic pain, continue home medications, ? Full code, ?, Lovenox for DVT prophylaxis Attestations Medical Necessity Statement*: Patient requires hospitalization for vertebral osteomyelitis versus discitis versus abscess, status post surgical intervention, 1 out of 4 positive blood cultures, requiring inpatient monitoring of cultures, IV antibiotics, Diagnoses Traumatic compression fracture of L2 vertebra S32.020A Acute osteomyelitis of lumbar spine M46.26 Chronic pain G89.29 Methadone dependence F11.20 Nicotine dependence, unspecified, uncomplicated F17.200 Intractable low back pain M54.59 Gram-positive bacteremia R78.81 History of intravenous drug abuse F19.11
--- NOTE | 2023-10-17 12:26 | PC.NURSE ---
In room to give patient oral antibiotic as his IV is bad and we have been unable to start a new one. Patient asked the name of the medication which was given Linezolid. Patient and lookup medications and patient stated that he would be unable to take it as it would cause him to vomit. Zofran given. Patient states, I still will not be able to take it as I know it will make me sick. Dr. Gomez notified.
[2023-10-17] MEDS: ondansetron 4 MG Tablet PO (12:49)
[2023-10-17] MEDS: ketorolac 30 mg/mL INJ IVP (14:04)
[2023-10-17] MEDS: vancomycin 1,250 MG/250 ML PIGGYBACK 250 MG IV (14:07)
--- NOTE | 2023-10-17 16:43 | PM.PN ---
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: Blood cx from 10/14 now identified as Staph epidermidis . S/p surgery yesterday and also underwent MEME which was negative. From 10/16 blood cx negative to date. Pending OR culture. Medications: Medication Review Details: Current Medications Acetaminophen (Acetaminophen 325 Mg Tablet) 650 mg PO Q6H PRN PRN Reason: Mild/Mod Pain Or Temp >/= 101 Baclofen (Baclofen 10 Mg Tablet) 10 mg PO BID PRN PRN Reason: Pain Last Admin: 10/14/23 23:15 Dose: 10 mg Clonidine HCl (Clonidine 0.1 Mg Tablet) 0.1 mg PO TID [facility] Last Admin: 10/16/23 08:42 Dose: Not Given Cyclobenzaprine HCl (Cyclobenzaprine 10 Mg Tablet) 10 mg PO TID PRN PRN Reason: Muscle Spasm Enoxaparin Sodium (Enoxaparin 40 Mg/0.4 Ml Syringe) 40 mg SUBCUT Q24H [facility] Last Admin: 10/15/23 18:03 Dose: 40 mg Famotidine (Famotidine 20 Mg Tablet) 20 mg PO BID [facility] Last Admin: 10/16/23 08:43 Dose: 20 mg Gabapentin (Gabapentin 300 Mg Capsule) 300 mg PO TID [facility] Last Admin: 10/16/23 08:43 Dose: 300 mg Hydromorphone HCl (Hydromorphone 1 Mg/Ml Inj 1 Ml) 0.5 mg IVP Q4H PRN PRN Reason: PAIN Last Admin: 10/15/23 18:05 Dose: 0.5 mg Sodium Chloride (Sodium Chloride 0.9%) 1,000 mls @ 100 mls/hr IV .Q10H [facility] Last Admin: 10/16/23 01:40 Dose: 100 mls/hr Vancomycin/PEG/NADA/Lysine/Water (Vancocin) 1,250 mg in 250 mls @ 250 mls/hr IV Q12H [facility] Last Admin: 10/16/23 08:36 Dose: 250 mls/hr Sodium Chloride (Sodium Chloride 0.9%) 1,000 mls @ 30 mls/hr IV .Q24H [facility] Stop: 10/17/23 10:29 Lidocaine (Lidocaine 5% Patch) [id number] [facility] Last Admin: 10/16/23 08:45 Dose: 1 patch Lidocaine HCl (Lidocaine 1% Inj 10 Ml (Per Ml)) 0.1 ml INTRADERMA PRN PRN PRN Reason: anesthetic prior to IV start Lidocaine HCl (Lidocaine 2% Viscous 15 Ml Udc) 1 ml TOPICAL PRN PRN PRN Reason: Anesthetic prior to IV start Lorazepam (Lorazepam 1 Mg Tablet) 1 mg PO Q6H PRN PRN Reason: Anxiety Last Admin: 10/15/23 11:05 Dose: 1 mg Methadone HCl (Methadone 10 Mg Tablet) 25 mg PO BID [facility] Last Admin: 10/16/23 08:44 Dose: 25 mg Methylphenidate HCl (Methylphenidate 10 Mg Tablet) 20 mg PO BID [facility] Last Admin: 10/16/23 08:43 Dose: 20 mg Midazolam HCl (Midazolam 1 Mg/Ml Inj 2 Ml) 2 mg IVP Q5M PRN PRN Reason: Preop Anxiety Mirtazapine (Mirtazapine 15 Mg Tablet) 15 mg PO BEDTIME [facility] Last Admin: 10/15/23 20:54 Dose: 15 mg Morphine Sulfate (Morphine 4 Mg/Ml Sdv 1 Ml) 0 mg IVP Q5M PRN PRN Reason: Breakthrough Pain PACU PhaseII Ondansetron HCl (Ondansetron 2 Mg/Ml Sdv 2 Ml) 4 mg IVP Q6H PRN PRN Reason: NAUSEA AND VOMITING Last Admin: 10/15/23 12:24 Dose: 4 mg Ondansetron HCl (Ondansetron 2 Mg/Ml Sdv 2 Ml) 4 mg IVP Q15M PRN PRN Reason: Nausea/Vomiting PACU PHASE II Vitals/I&O/Wt Last Vital Signs Temp 98.1 F 10/17/23 15:46 Pulse 74 10/17/23 15:46 Resp 16 10/17/23 15:46 BP 114/70 10/17/23 15:46 Pulse Ox 93 10/17/23 15:46 O2 Del Method Room Air 10/17/23 15:46 10/17/23 10/17/23 10/17/23 06:59 14:59 22:59 Intake Total 130 / 2591 120 / 120 250 / 370 Output Total 60 / 70 480 / 480 Balance 70 / 2521 -360 / -360 250 / -110 Weight last 48 hrs Weight 79.861 kg Weight 78.426 kg Physical Exam Narrative: General: No acute distress, AO x3 HEENT: PERRLA, pupils bilaterally equal and reactive, pallors not present Chest: Normal vesicular breath sounds, no added sounds, equal good air entry bilaterally CVS: S1-S2 regular, no murmurs, no tachycardia, no gallops, no rubs Abdomen: Soft, nontender, no organomegaly, bowel sounds present Neuro: No focal motor deficits, no facial deformity, AO x3 Data 10/17/23 06:53 10/17/23 06:53 Micro: Microbiology 10/14/23 14:10 Blood Culture - Preliminary Blood Staphylococcus epidermidis 10/16/23 16:42 Gram Stain - Final Tissue Anaerobic Culture - Preliminary 10/16/23 06:42 Blood Culture - Preliminary Blood NEGATIVE TO DATE 10/16/23 06:36 Blood Culture - Preliminary Blood NEGATIVE TO DATE A&P Assessment and plan (1) MRSA bacteremia: (2) History of substance abuse: (3) Hepatitis C: Discussed extensively rationale for starting treatment. He is interested in starting treatment with Hep C, does not wish to delay further. Ordered mavyret to outpatient pharmacy (4) Traumatic compression fracture of L2 vertebra: (5) Acute osteomyelitis of lumbar spine: Plan Mr. Jean is a patient with a remote history of IV drug use, currently on methadone maintenance,recently treated for MRSA bacteremia and lumbar discitis/osteomyelitis with interval compression in July 2023. . He is s/p treatment with 6 weeks of iv vancomycin/daptomycin for 6 weeks (08/05-09/16) followed by transition to po Bactrim with plan to take total treatment to 12 weeks however patient had issues with poor GI tolerability of bactrim. Follow up MRI on 09/22 showed inetrval progression of destructive changes at levels of L1, L2, L3 , with nerve Redundancy of the cauda equina nerve rootlets at the L1 level. This was thought most likely to be most likely related to destruction from known recent osteomyelitis. CRP had trended down to normal with treatment on 10/12/23. Currently admitted since 10/14 after experiencing worsening pain and having sustained a mechanical fall at home 4-5 days [employer]. CRP up to 79 from 7 on 10/14 lumbar spine X ray showed New interval osseous destruction of the lower endplate of L1, Progressive destruction of the L2 vertebral body with only the lower endplate of the vertebra remaining, significant L1 retropulsion with some compromise of the spinal canal. Now s/p L1-2-L3 laminectomy with partial facetectomy on 10/16. pending OR cx from L1-2 disc space. Blood cx from 10/14 reportd 1/ positive for Staph epidermidis, likely contaminant. Follow up from 10/16 negative to date. OR cx pending from 10/16 For now continue iv vancomycin. Final duration of abx to be dependent on OR cx. Likely will plan to continue iv abx until wound heals MEME negative will follow Attestations Medical Necessity Statement*: per admtiting Coding Level of Care Code Acute Code for [facility] Fwd Diagnoses MRSA bacteremia R78.81; B95.62 History of substance abuse F19.11 Hepatitis C B19.20 Traumatic compression fracture of L2 vertebra S32.020A Acute osteomyelitis of lumbar spine M46.26
[2023-10-17] MEDS: enoxaparin 40 mg/0.4 mL Syringe SUBCUT (18:21)
[2023-10-17] MEDS: mirtazapine 15 mg Tablet PO (20:00)
--- NOTE | 2023-10-17 20:18 | PC.NURSE ---
At approximately 0800 was notified to patient room due to patient requesting pain medication. Patient stated his IV was bad and requested it be removed. IV removed upon patient request and patient was informed that new IV would be placed as soon as possible. Verbal order received from Dr. Gomez to administer 1x dose of Morphine IM 0.5ml to help with pain until IV could be replaced. Morphine brought to patient bedside and informed patient of order. Patient asked what the mg was and when informed he stated it was not enough for him and refused medication. Patient also refused scheduled lidocaine patch and all nonpharmalogical attempts to help relieve pain offered. Charge nurse Shirley made aware.
[2023-10-18] VITALS (14 sets, daily range): BP systolic 97–143; BP diastolic 62–83; PULSE 61–98; RESP 13–18; TEMP 36.7–37.2; O2SAT 92–100; BMI 22.8
[2023-10-18] MEDS: vancomycin 1,250 MG/250 ML PIGGYBACK 250 MG IV ×2 (01:34→15:02)
[2023-10-18] MEDS: HYDROmorphone 1 mg/mL INJ 1 mL 0.5 MG IVP ×2 (01:46→17:48)
[2023-10-18] MEDS: LORazepam 1 mg Tablet PO ×2 (01:46→10:36)
[2023-10-18] MEDS: ondansetron 2 mg/ML SDV 2 mL 4 MG IVP (09:28)
[2023-10-18] MEDS: methylphenidate 10 mg Tablet 20 MG PO ×2 (10:36→17:48)
[2023-10-18] MEDS: famotidine 20 mg Tablet PO ×2 (10:36→17:47)
[2023-10-18] MEDS: cloNIDine 0.1 mg Tablet PO ×3 (10:36→20:19)
[2023-10-18] MEDS: docusate sodium 100 mg Capsule PO ×2 (10:37→17:47)
[2023-10-18] MEDS: gabapentin 300 mg Capsule PO ×3 (10:37→20:19)
[2023-10-18] MEDS: methadone 10 mg Tablet 25 MG PO ×2 (10:37→17:47)
[2023-10-18] MEDS: ketorolac 30 mg/mL INJ IVP (10:38)
--- NOTE | 2023-10-18 14:56 | PC.NURSE ---
Hemovac removed per dr order , over with [facility].
--- NOTE | 2023-10-18 15:16 | P.PN_ITS ---
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: Patient was seen this morning, Hemovac in place continues to complain of back pain, surgical site seen, no significant pain, no no significant swelling on examination, surgical site looks clean and dry, no fevers overnight, no cough, no urine incontinence, no bowel incontinence, no saddle perianal anesthesia, no lower extremity weakness, does hurts all over he tells me also Vitals/I&O/Wt Last Vital Signs Temp 98.2 F 10/18/23 13:41 Pulse 68 10/18/23 13:41 Resp 18 10/18/23 13:41 BP 127/76 10/18/23 15:03 Pulse Ox 94 10/18/23 13:41 O2 Del Method Room Air 10/18/23 13:41 O2 Flow Rate 6 10/16/23 17:20 10/18/23 10/18/23 10/18/23 06:59 14:59 22:59 Intake Total 250 / 1220 480 / 480 Output Total 50 / 1030 Balance 200 / 190 480 / 480 Weight last 48 hrs Weight 76.43 kg Weight 79.861 kg Physical Exam Const: COMMON NORMALS: no acute distress and patient oriented x3 Resp: COMMON NORMALS: normal respiratory effort, No retractions, No use of accessory muscles and clear to auscultation bilaterally AUSCULTATION: clear to auscultation bilaterally Cardio: COMMON NORMALS: regular rate, regular rhythm, S1 normal heart sound present and S2 normal heart sound present RATE: regular rate RHYTHM: regular rhythm HEART SOUNDS: S1 normal heart sound present and S2 normal heart sound present GI: COMMON NORMALS: Normal to inspection, nondistended, normoactive bowel sounds present and non-tender Extremity: COMMON NORMALS: no pedal edema Neuro: COMMON NORMALS: patient oriented x3 Psych: COMMON NORMALS: mental status grossly normal Data 10/17/23 06:53 10/17/23 06:53 Micro: Microbiology 10/16/23 16:42 Gram Stain - Final Tissue Anaerobic Culture - Preliminary Wound Culture - Preliminary 10/14/23 14:10 Blood Culture - Preliminary Blood Staphylococcus epidermidis A&P Assessment and plan (1) Traumatic compression fracture of L2 vertebra: (2) Acute osteomyelitis of lumbar spine: (3) Chronic pain: (4) Methadone dependence: (5) Nicotine dependence, unspecified, uncomplicated: (6) Intractable low back pain: (7) Gram-positive bacteremia: (8) History of intravenous drug abuse: Plan intractable low back pain -Concerns for discitis, lumbar osteomyelitis, possible underlying abscess, pathological fracture -History of lumbar osteomyelitis, ? Pathologic fracture, ? MRSA bacteremia, ? Repeat blood cultures 1 out of 4 blood cultures positive gram-positive, concerns for recurrent bacteremia ? At LT[facility] in [place], completed daptomycin 09/16/2023 MRI lumbar spine 09/22/2023 -IMPRESSION: Some images degraded by patient motion. Gadolinium not administered described above. 1.? Persistent findings of discitis/osteomyelitis with interval compression of the L2 vertebral body with loss of approximately 75% vertebral body height. Retropulsion results in moderate central canal stenosis progressed compared to previous. Redundancy of the cauda equina nerve rootlets at the L1 level. Consider spine surgery consultation. 2.? Associated persistent paravertebral soft tissue edema at L1-2 with bone marrow edema. No visualized paravertebral abscess or drainable fluid collection. 3.? No apparent epidural abscess considering lack of gadolinium. 4.? No other significant change compared to previous ? X-ray lumbar spine IMPRESSION: 1. New interval osseous destruction of the lower endplate of L1 apparently secon aundrea to L1-2 discitis and osteomyelitis. 2. Progressive destruction of the L2 vertebral body with only the lower endplate of the vertebra remaining. There is also significant osseous destruction of the L2 pedicles. 3. There appears to be significant L1 retropulsion with some compromise of the spinal canal. ? Transesophageal echocardiogram CONCLUSIONS ?1.? No intracavitary masses or vegetations noted ?2.? Trace to mild mitral regurgitation ?3.? Normal LV size ejection fraction of around 60% ?4.? Intact interatrial septum ?4.? Normal left atrial appendage and contractility. ?5.? No unstable plaques or lesions in the aorta ascending, arch ?and the descending aorta ? Status post, postoperative day 1 Procedure done: 1.? L1-2 laminectomy with partial facetectomy 2.? L2-3 laminectomy with partial facetectomy 3.? Tissue biopsy from lumbar spine ? Plan, ? Presents with acute low back pain, ? No alarm symptoms, no saddle or perianal anesthesia, no urinary or bowel incontinence, ? Pain control continue home methadone 25 mg twice daily ? Add Dilaudid 0.5 mg every 4 hours as needed, ? Continue home methylphenidate 20 mg twice daily, continue home lorazepam 1 mg p.o. every 6 hours as needed, ? Blood cultures, 1 out of 4 blood cultures positive, Staph epidermidis, continue vancomycin a ? Awaiting surgical site cultures ? follow ESR, CRP, Pro-Abhijit, ?continue antibiotics vancomycin ? Follow surgical site cultures -Patient will likely need PICC line placement, IV antibiotics for least 6 weeks, placement to long-term care facility on discharge ? Infectious disease on consult ? Orthopedic service on consult ? Chronic pain, continue home medications, ? Full code, ?, Lovenox for DVT prophylaxis Attestations Medical Necessity Statement*: Patient requires hospitalization for persistent back pain, concerns for discitis vertebral osteomyelitis, requiring surgical intervention, biopsy, and IV antibiotics, awaiting culture results following blood cultures, continues to be on IV vancomycin Diagnoses Traumatic compression fracture of L2 vertebra S32.020A Acute osteomyelitis of lumbar spine M46.26 Chronic pain G89.29 Methadone dependence F11.20 Nicotine dependence, unspecified, uncomplicated F17.200 Intractable low back pain M54.59 Gram-positive bacteremia R78.81 History of intravenous drug abuse F19.11
[2023-10-18] MEDS: enoxaparin 40 mg/0.4 mL Syringe SUBCUT (17:46)
[2023-10-18] MEDS: magnesium hydroxide 30 mL UDC PO (19:47)
[2023-10-18] MEDS: baclofen 10 mg Tablet PO (20:19)
[2023-10-18] MEDS: mirtazapine 15 mg Tablet PO (20:19)
[2023-10-18 23:21] LABS: Basophils % 0.4 %; Eosinophils # 0.3 10^3/uL (0.0-0.8); Eosinophils % 3.9 %; Lymphocytes # 1.9 10^3/uL (0.8-4.8); Lymphocytes % 22.5 %; Mean Corpuscular HGB Conc 31.7 g/dL (30-55); Mean Corpuscular Hemoglobin 25.4 pg (27-33); Mean Corpuscular Volume 80.1 fl (82-101); Mean Platelet Volume 8.6 fL (7.4-10.4); Monocytes # 0.4 10^3/uL (0.2-0.9); Monocytes % 5.2 %; Neutrophils # 5.76 10^3/uL (1.8-7.7); Neutrophils % 67.5 %; Nucleated Red Blood Cells % 0 %; Platelet Count 342 10^3/cmm (157-399); Red Blood Count 3.62 10^6/uL (3.85-5.65); Red Cell Distribution Width 14.8 % (12.1-15.1); White Blood Count 8.52 10^3/uL (3.29-11.43)
[2023-10-18 23:37] LABS: Alanine Aminotransferase 33 U/L (0-41); Albumin Level 3.7 g/dL (3.5-5.2); Alkaline Phosphatase 96 U/L (40-130); Anion Gap 14.4 (5-19); Aspartate Amino Transferase 29 U/L (0-40); Blood Urea Nitrogen 13 mg/dL (6-20); Calcium 9.3 mg/dL (8.5-10.5); Carbon Dioxide 28 mmol/L (22-29); Chloride 95 mmol/L (98-107); Globulin 4.3 g/dL (1.3-4.6); Glomerular Filtration Rate 58.7 mL/min (90-130); Glucose 121 mg/dL (65-115); Osmolality Calculated 279 mOsm/kg (285-295); Potassium 3.4 mmol/L (3.5-5.1); Sodium 134 mmol/L (136-145); Total Bilirubin 0.3 mg/dL (0.15-1.2)
[2023-10-19] VITALS (11 sets, daily range): BP systolic 96–144; BP diastolic 57–82; PULSE 53–62; RESP 13–22; TEMP 36.4–36.8; O2SAT 91–98
[2023-10-19] MEDS: HYDROmorphone 1 mg/mL INJ 1 mL 0.5 MG IVP ×2 (00:14→14:46)
[2023-10-19] MEDS: ketorolac 30 mg/mL INJ IVP (00:22)
[2023-10-19 03:25] LABS: Basophils % 0.5 %; Eosinophils # 0.4 10^3/uL (0.0-0.8); Eosinophils % 4.6 %; Lymphocytes # 1.6 10^3/uL (0.8-4.8); Lymphocytes % 20.9 %; Mean Corpuscular HGB Conc 30.3 g/dL (30-55); Mean Corpuscular Volume 82.4 fl (82-101); Monocytes # 0.6 10^3/uL (0.2-0.9); Monocytes % 7.8 %; Neutrophils # 5.17 10^3/uL (1.8-7.7); Neutrophils % 65.7 %; Nucleated Red Blood Cells % 0 %; Platelet Count 302 10^3/cmm (157-399); Red Blood Count 3.52 10^6/uL (3.85-5.65); White Blood Count 7.86 10^3/uL (3.29-11.43)
[2023-10-19 03:38] LABS: Vancomycin Trough 19.6 ug/mL (10-15)
[2023-10-19] MEDS: vancomycin 1,250 MG/250 ML PIGGYBACK 250 MG IV ×2 (03:44→14:47)
--- NOTE | 2023-10-19 03:48 | PC.NURSE ---
0200 Vanc given late due to delay in lab drawing trough, Vancomycin was administered as soon as trough came back.
[2023-10-19 03:51] LABS: Alanine Aminotransferase 30 U/L (0-41); Albumin Level 3.5 g/dL (3.5-5.2); Alkaline Phosphatase 93 U/L (40-130); Anion Gap 17.5 (5-19); Aspartate Amino Transferase 27 U/L (0-40); Blood Urea Nitrogen 15 mg/dL (6-20); Calcium 8.8 mg/dL (8.5-10.5); Carbon Dioxide 25 mmol/L (22-29); Chloride 97 mmol/L (98-107); Globulin 3.6 g/dL (1.3-4.6); Glomerular Filtration Rate 64.4 mL/min (90-130); Glucose 73 mg/dL (65-115); Osmolality Calculated 281 mOsm/kg (285-295); Potassium 3.5 mmol/L (3.5-5.1); Sodium 136 mmol/L (136-145); Total Bilirubin 0.2 mg/dL (0.15-1.2); Total Protein 7.1 g/dL (6.6-8.7)
[2023-10-19] MEDS: ondansetron 2 mg/ML SDV 2 mL 4 MG IVP (10:06)
[2023-10-19] MEDS: cloNIDine 0.1 mg Tablet PO ×2 (10:06→15:08)
[2023-10-19] MEDS: methadone 10 mg Tablet 25 MG PO ×2 (10:07→16:59)
[2023-10-19] MEDS: gabapentin 300 mg Capsule PO ×3 (10:08→21:17)
[2023-10-19] MEDS: docusate sodium 100 mg Capsule PO ×2 (10:08→17:00)
[2023-10-19] MEDS: famotidine 20 mg Tablet PO ×2 (10:08→17:00)
[2023-10-19] MEDS: methylphenidate 10 mg Tablet 20 MG PO ×2 (10:12→17:00)
[2023-10-19] MEDS: acetaminophen 325 mg Tablet 650 MG PO (15:04)
--- NOTE | 2023-10-19 16:55 | P.PN_ITS ---
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: Patient was seen this morning, he has been ambulating according to nursing staff, this morning he does complain of back pain, no fevers, no chills, no nausea, no vomiting, Vitals/I&O/Wt Last Vital Signs Temp 98.0 F 10/19/23 16:24 Pulse 59 L 10/19/23 16:24 Resp 22 H 10/19/23 16:24 BP 101/57 10/19/23 16:24 Pulse Ox 95 10/19/23 16:24 O2 Del Method Room Air 10/19/23 16:24 O2 Flow Rate 6 10/16/23 17:20 10/19/23 10/19/23 10/19/23 06:59 14:59 22:59 Intake Total 490 / 1940 360 / 360 250 / 610 Balance 490 / 1940 360 / 360 250 / 610 Weight last 48 hrs Weight 80.513 kg Weight 76.43 kg Physical Exam Const: COMMON NORMALS: no acute distress and patient oriented x3 Resp: COMMON NORMALS: normal respiratory effort, No retractions, No use of accessory muscles and clear to auscultation bilaterally AUSCULTATION: clear to auscultation bilaterally Cardio: COMMON NORMALS: regular rate, regular rhythm, S1 normal heart sound present and S2 normal heart sound present RATE: regular rate RHYTHM: regular rhythm HEART SOUNDS: S1 normal heart sound present and S2 normal heart sound present GI: COMMON NORMALS: Normal to inspection, nondistended, normoactive bowel sounds present and non-tender Extremity: COMMON NORMALS: no pedal edema Neuro: COMMON NORMALS: patient oriented x3 Psych: COMMON NORMALS: mental status grossly normal Data 10/19/23 02:36 10/19/23 02:36 Micro: Microbiology 10/14/23 14:18 Blood Culture - Final Blood NO GROWTH AFTER 5 DAYS 10/16/23 16:42 Gram Stain - Final Tissue Anaerobic Culture - Preliminary Wound Culture - Preliminary 10/14/23 14:10 Blood Culture - Final Blood Staphylococcus epidermidis A&P Assessment and plan (1) Traumatic compression fracture of L2 vertebra: (2) Acute osteomyelitis of lumbar spine: (3) Chronic pain: (4) Methadone dependence: (5) Nicotine dependence, unspecified, uncomplicated: (6) Intractable low back pain: (7) Gram-positive bacteremia: (8) History of intravenous drug abuse: Plan intractable low back pain -Concerns for discitis, lumbar osteomyelitis, possible underlying abscess, pathological fracture -History of lumbar osteomyelitis, ? Pathologic fracture, ? MRSA bacteremia, ? Repeat blood cultures 1 out of 4 blood cultures positive gram-positive, concerns for recurrent bacteremia ? At LTAC in [place], completed daptomycin 09/16/2023 MRI lumbar spine 09/22/2023 -IMPRESSION: Some images degraded by patient motion. Gadolinium not administered described above. 1.? Persistent findings of discitis/osteomyelitis with interval compression of the L2 vertebral body with loss of approximately 75% vertebral body height. Retropulsion results in moderate central canal stenosis progressed compared to previous. Redundancy of the cauda equina nerve rootlets at the L1 level. Consider spine surgery consultation. 2.? Associated persistent paravertebral soft tissue edema at L1-2 with bone marrow edema. No visualized paravertebral abscess or drainable fluid collection. 3.? No apparent epidural abscess considering lack of gadolinium. 4.? No other significant change compared to previous ? X-ray lumbar spine IMPRESSION: 1. New interval osseous destruction of the lower endplate of L1 apparently secondary to L1-2 discitis and osteomyelitis. 2. Progressive destruction of the L2 vertebral body with only the lower endplate of the vertebra remaining. There is also significant osseous destruction of the L2 pedicles. 3. There appears to be significant L1 retropulsion with some compromise of the spinal canal. ? Transesophageal echocardiogram CONCLUSIONS ?1.? No intracavitary masses or vegetations noted ?2.? Trace to mild mitral regurgitation ?3.? Normal LV size ejection fraction of around 60% ?4.? Intact interatrial septum ?4.? Normal left atrial appendage and contractility. ?5.? No unstable plaques or lesions in the aorta ascending, arch ?and the descending aorta ? Status post, postoperative day 1 Procedure done: 1.? L1-2 laminectomy with partial facetectomy 2.? L2-3 laminectomy with partial facetectomy 3.? Tissue biopsy from lumbar spine ? Plan, ? Presents with acute low back pain, ? No alarm symptoms, no saddle or perianal anesthesia, no urinary or bowel incontinence, ? Pain control continue home methadone 25 mg twice daily ? Add Dilaudid 0.5 mg every 4 hours as needed, ? Continue home methylphenidate 20 mg twice daily, continue home lorazepam 1 mg p.o. every 6 hours as needed, ? Blood cultures, 1 out of 4 blood cultures positive, Staph epidermidis, likely contamination, continue vancomycin for now, ? Awaiting surgical site cultures, so far nagative ? follow ESR, CRP, Pro-Abhijit, ?continue antibiotics vancomycin ? Follow surgical site cultures ? Infectious disease on consult ? Orthopedic service on consult ? Chronic pain, continue home medications, ? Full code, ?, Lovenox for DVT prophylaxis Attestations Medical Necessity Statement*: Patient requires hospitalizations for concerns for discitis, vertebral osteomy elitis, status post surgical intervention, with biopsy, so far cultures have been unremarkable, blood culture showed Staph epidermidis likely contamination, receiving IV vancomycin, will likely need IV antibiotics on discharge, will coordinate with infectious disease about antibiotic regimen, working on placement, pain control Diagnoses Traumatic compression fracture of L2 vertebra S32.020A Acute osteomyelitis of lumbar spine M46.26 Chronic pain G89.29 Methadone dependence F11.20 Nicotine dependence, unspecified, uncomplicated F17.200 Intractable low back pain M54.59 Gram-positive bacteremia R78.81 History of intravenous drug abuse F19.11
[2023-10-19] MEDS: enoxaparin 40 mg/0.4 mL Syringe SUBCUT (16:59)
[2023-10-19] MEDS: HYDROcodone-acetaminophen 5-325 mg Tablet 1 TAB PO (19:04)
[2023-10-19] MEDS: baclofen 10 mg Tablet PO (21:17)
[2023-10-19] MEDS: mirtazapine 15 mg Tablet PO (21:17)
[2023-10-20] VITALS (9 sets, daily range): BP systolic 110–135; BP diastolic 64–80; PULSE 63–67; RESP 15–20; TEMP 36.8–37.2; O2SAT 94–97
[2023-10-20] MEDS: LORazepam 1 mg Tablet PO (01:50)
[2023-10-20] MEDS: vancomycin 1,250 MG/250 ML PIGGYBACK 250 MG IV ×2 (01:50→14:38)
[2023-10-20 06:59] LABS: Basophils % 0.5 %; Eosinophils # 0.4 10^3/uL (0.0-0.8); Lymphocytes # 1.2 10^3/uL (0.8-4.8); Lymphocytes % 20.5 %; Mean Corpuscular HGB Conc 31.9 g/dL (30-55); Mean Corpuscular Hemoglobin 25.8 pg (27-33); Mean Corpuscular Volume 81.1 fl (82-101); Mean Platelet Volume 8.6 fL (7.4-10.4); Monocytes # 0.5 10^3/uL (0.2-0.9); Monocytes % 8.7 %; Neutrophils # 3.74 10^3/uL (1.8-7.7); Nucleated Red Blood Cells % 0 %; Platelet Count 312 10^3/cmm (157-399); Red Blood Count 3.33 10^6/uL (3.85-5.65); Red Cell Distribution Width 14.9 % (12.1-15.1); White Blood Count 5.85 10^3/uL (3.29-11.43)
[2023-10-20 07:13] LABS: Alanine Aminotransferase 25 U/L (0-41); Alkaline Phosphatase 80 U/L (40-130); Anion Gap 13.4 (5-19); Aspartate Amino Transferase 22 U/L (0-40); Blood Urea Nitrogen 12 mg/dL (6-20); C Reactive Protein 37.2 mg/L (0.0-4.9); Calcium 8.4 mg/dL (8.5-10.5); Carbon Dioxide 24 mmol/L (22-29); Chloride 104 mmol/L (98-107); Globulin 3.7 g/dL (1.3-4.6); Glomerular Filtration Rate 119.9 mL/min (90-130); Glucose 93 mg/dL (65-115); Magnesium 1.8 mg/dL (1.7-2.3); Osmolality Calculated 285 mOsm/kg (285-295); Phosphorus 3.6 mg/dL (2.5-4.5); Potassium 3.4 mmol/L (3.5-5.1); Sodium 138 mmol/L (136-145); Total Bilirubin 0.2 mg/dL (0.15-1.2); Total Protein 6.7 g/dL (6.6-8.7)
[2023-10-20] MEDS: methylphenidate 10 mg Tablet 20 MG PO ×2 (10:31→17:53)
[2023-10-20] MEDS: docusate sodium 100 mg Capsule PO ×2 (10:32→17:53)
[2023-10-20] MEDS: HYDROcodone-acetaminophen 5-325 mg Tablet 1 TAB PO ×2 (10:32→17:54)
[2023-10-20] MEDS: cloNIDine 0.1 mg Tablet PO ×3 (10:32→20:37)
[2023-10-20] MEDS: famotidine 20 mg Tablet PO ×2 (10:32→17:53)
[2023-10-20] MEDS: gabapentin 300 mg Capsule PO ×3 (10:32→20:37)
[2023-10-20] MEDS: methadone 10 mg Tablet 25 MG PO ×2 (10:32→17:52)
[2023-10-20] MEDS: cyclobenzaprine 10 mg Tablet PO ×2 (10:32→17:53)
[2023-10-20] MEDS: lidocaine 5% Patch 1 PATCH TOPICAL (10:33)
--- NOTE | 2023-10-20 13:21 | P.PN_ITS ---
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: I had an extensive discussion with patient about future directives, ? I was told by nursing staff that patient's caregiver has called, and is advises that she cannot provide the care that Joby needs ? Patient will need 2 weeks of IV antibiotics, since surgery, daptomycin versus vancomycin, ? Given his IV drug use, will have to either keep him here as inpatient and give him antibiotics until October 30, all will work on placing him at a intermediate facility to receive IV antibiotics and skilled therapy for his back, back surgery ? Discussed risks and benefits, he voiced understanding, all questions answered, agrees with the plan for now Vitals/I&O/Wt Last Vital Signs Temp 98.5 F 10/20/23 07:41 Pulse 63 10/20/23 07:41 Resp 19 H 10/20/23 10:32 BP 110/66 10/20/23 10:32 Pulse Ox 96 10/20/23 10:32 O2 Del Method Room Air 10/20/23 07:41 O2 Flow Rate 6 10/16/23 17:20 10/19/23 10/20/23 10/20/23 22:59 06:59 14:59 Intake Total 730 / 1090 250 / 1340 Balance 730 / 1090 250 / 1340 Weight last 48 hrs Weight 81.788 kg Weight 80.513 kg Physical Exam Const: COMMON NORMALS: no acute distress and patient oriented x3 Resp: COMMON NORMALS: normal respiratory effort, No retractions, No use of accessory muscles and clear to auscultation bilaterally AUSCULTATION: clear to auscultation bilaterally Cardio: COMMON NORMALS: regular rate, regular rhythm, S1 normal heart sound present and S2 normal heart sound present RATE: regular rate RHYTHM: regular rhythm HEART SOUNDS: S1 normal heart sound present and S2 normal heart sound present GI: COMMON NORMALS: Normal to inspection, nondistended, normoactive bowel sounds present and non-tender Extremity: COMMON NORMALS: no pedal edema Neuro: COMMON NORMALS: patient oriented x3 Psych: COMMON NORMALS: mental status grossly normal Data 10/20/23 06:49 10/20/23 06:49 Micro: Microbiology 10/14/23 14:18 Blood Culture - Final Blood NO GROWTH AFTER 5 DAYS 10/16/23 16:42 Gram Stain - Final Tissue Anaerobic Culture - Preliminary Wound Culture - Preliminary 10/14/23 14:10 Blood Culture - Final Blood Staphylococcus epidermidis A&P Assessment and plan (1) Traumatic compression fracture of L2 vertebra: (2) Acute osteomyelitis of lumbar spine: (3) Chronic pain: (4) Methadone dependence: (5) Nicotine dependence, unspecified, uncomplicated: (6) Intractable low back pain: (7) Gram-positive bacteremia: (8) History of intravenous drug abuse: Plan intractable low back pain -History of lumbar osteomyelitis, ? Pathologic fracture, ? MRSA bacteremia, ? At LTAC in [place], [facility] daptomycin 09/16/2023 MRI lumbar spine 09/22/2023 -IMPRESSION: Some images degraded by patient motion. Gadolinium not administered described above. 1.? Persistent findings of discitis/osteomyelitis with interval compression of the L2 vertebral body with loss of approximately 75% vertebral body height. Retropulsion results in moderate central canal stenosis progressed compared to previous. Redundancy of the cauda equina nerve rootlets at the L1 level. Consider spine surgery consultation. 2.? Associated persistent paravertebral soft tissue edema at L1-2 with bone marrow edema. No visualized paravertebral abscess or drainable fluid collection. 3.? No apparent epidural abscess considering lack of gadolinium. 4.? No other significant change compared to previous ? X-ray lumbar spine IMPRESSION: 1. New interval osseous destruction of the lower endplate of L1 apparently secondary to L1-2 discitis and osteomyelitis. 2. Progressive destruction of the L2 vertebral body with only the lower endplate of the vertebra remaining. There is also significant osseous destruction of the L2 pedicles. 3. There appears to be significant L1 retropulsion with some compromise of the spinal canal. ? Transesophageal echocardiogram CONCLUSIONS ?1.? No intracavitary masses or vegetations noted ?2.? Trace to mild mitral regurgitation ?3.? Normal LV size ejection fraction of around 60% ?4.? Intact interatrial septum ?4.? Normal left atrial appendage and contractility. ?5.? No unstable plaques or lesions in the aorta ascending, arch ?and the descending aorta ? Status post, postoperative day 1 Procedure done: 1.? L1-2 laminectomy with partial facetectomy 2.? L2-3 laminectomy with partial facetectomy 3.? Tissue biopsy from lumbar spine ? Plan, ? No alarm symptoms, no saddle or perianal anesthesia, no urinary or bowel incontinence, ? Pain control continue home methadone 25 mg twice daily ? Add Dilaudid 0.5 mg every 4 hours as needed, ? Continue home methylphenidate 20 mg twice daily, continue home lorazepam 1 mg p.o. every 6 hours as needed, ? Blood cultures, 1 out of 4 blood cultures positive, Staph epidermidis, likely contamination, continue vancomycin for now, ? Awaiting surgical site cultures, so far nagative, ? Plan is to either complete 2 weeks of IV antibiotics here in [facility], or discharge to intermediate facility for total 2 weeks of daptomycin since date of surgery 10/16/2023 ?continue antibiotics vancomycin ? Follow surgical site cultures ? Infectious disease on consult ? Orthopedic service on consult ? Chronic pain, continue home medications, ? Full code, ?, Lovenox for DVT prophylaxis Attestations Medical Necessity Statement*: Patient requires hospitalization for intractable back pain, status post surgery, will require 2 weeks of IV antibiotics, Coding Level of Care Code Acute Code for Chg Fwd Diagnoses Traumatic compression fracture of L2 vertebra S32.020A Acute osteomyelitis of lumbar spine M46.26 Chronic pain G89.29 Methadone dependence F11.20 Nicotine dependence, unspecified, uncomplicated F17.200 Intractable low back pain M54.59 Gram-positive bacteremia R78.81 History of intravenous drug abuse F19.11
[2023-10-20] MEDS: baclofen 10 mg Tablet PO (14:37)
[2023-10-20] MEDS: magnesium hydroxide 30 mL UDC PO (14:38)
[2023-10-20] MEDS: acetaminophen 325 mg Tablet 650 MG PO (14:38)
--- NOTE | 2023-10-20 16:34 | PC.OT ---
PATIENT HAS DEMONSTRATED ABILITY TO TOILET SELF AND PERFORM DRESSING HIMSELF. OT GOALS MET; D/C SKILLED OT SERVICES
[2023-10-20] MEDS: enoxaparin 40 mg/0.4 mL Syringe SUBCUT (17:53)
[2023-10-20] MEDS: mirtazapine 15 mg Tablet PO (20:37)
[2023-10-21] VITALS (7 sets, daily range): BP systolic 108–146; BP diastolic 62–82; PULSE 53–77; RESP 14–18; TEMP 36.6–37.2; O2SAT 96–99
[2023-10-21] MEDS: HYDROcodone-acetaminophen 5-325 mg Tablet 1 TAB PO ×2 (00:53→14:32)
[2023-10-21] MEDS: vancomycin 1,250 MG/250 ML PIGGYBACK 250 MG IV ×2 (02:34→15:59)
[2023-10-21 05:07] LABS: Basophils # 0.1 10^3/uL (0.0-0.1); Basophils % 0.8 %; Eosinophils # 0.4 10^3/uL (0.0-0.8); Hematocrit 26.4 % (37-53); Lymphocytes # 1.5 10^3/uL (0.8-4.8); Lymphocytes % 23.2 %; Mean Corpuscular HGB Conc 30.7 g/dL (30-55); Mean Corpuscular Hemoglobin 25.3 pg (27-33); Mean Corpuscular Volume 82.5 fl (82-101); Mean Platelet Volume 8.5 fL (7.4-10.4); Monocytes # 0.5 10^3/uL (0.2-0.9); Monocytes % 7.3 %; Neutrophils # 4.04 10^3/uL (1.8-7.7); Neutrophils % 62.4 %; Nucleated Red Blood Cells % 0 %; Platelet Count 311 10^3/cmm (157-399); White Blood Count 6.47 10^3/uL (3.29-11.43)
[2023-10-21 05:25] LABS: Alanine Aminotransferase 26 U/L (0-41); Albumin Level 2.9 g/dL (3.5-5.2); Alkaline Phosphatase 82 U/L (40-130); Anion Gap 13.9 (5-19); Aspartate Amino Transferase 28 U/L (0-40); Blood Urea Nitrogen 11 mg/dL (6-20); C Reactive Protein 21.8 mg/L (0.0-4.9); Calcium 8.6 mg/dL (8.5-10.5); Carbon Dioxide 24 mmol/L (22-29); Chloride 100 mmol/L (98-107); Globulin 3.6 g/dL (1.3-4.6); Glomerular Filtration Rate 119.9 mL/min (90-130); Glucose 108 mg/dL (65-115); Magnesium 1.9 mg/dL (1.7-2.3); Osmolality Calculated 278 mOsm/kg (285-295); Potassium 3.9 mmol/L (3.5-5.1); Sodium 134 mmol/L (136-145); Total Bilirubin 0.2 mg/dL (0.15-1.2); Total Protein 6.5 g/dL (6.6-8.7)
[2023-10-21 07:54] LABS: Liver Fibrosis Platelet Count 346 (140-400)
[2023-10-21 09:33] LABS: Ferritin 310 ng/mL (30-400); Iron 22 ug/dL (59-158); Total Iron Binding Capacity 200 mcg/dl; Unsaturated Iron Binding 178 ug/dL (112-347)
[2023-10-21] MEDS: methadone 10 mg Tablet 25 MG PO ×2 (09:41→17:00)
[2023-10-21] MEDS: gabapentin 300 mg Capsule PO ×3 (09:43→20:00)
[2023-10-21] MEDS: famotidine 20 mg Tablet PO ×2 (09:43→17:00)
[2023-10-21] MEDS: docusate sodium 100 mg Capsule PO ×2 (09:43→17:01)
[2023-10-21] MEDS: methylphenidate 10 mg Tablet 20 MG PO ×2 (10:36→17:01)
[2023-10-21] MEDS: cloNIDine 0.1 mg Tablet PO ×2 (11:47→20:00)
--- NOTE | 2023-10-21 12:18 | PM.PN ---
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: Patient was seen this morning, no fevers, chills, no cough, we discussed the plans of possibly working on placement to facility for long-term IV antibiotics until October 30, or keep him here as inpatient to give him antibiotics until October 30, he is agreeable, advised to continue physical therapy here, continue IV antibiotics continue monitoring so far his wound cultures remain unremarkable remains afebrile Vitals/I&O/Wt Last Vital Signs Temp 98.3 F 10/21/23 12:00 Pulse 77 10/21/23 12:00 Resp 16 10/21/23 12:00 BP 115/71 10/21/23 12:00 Pulse Ox 97 10/21/23 12:00 O2 Del Method Room Air 10/20/23 15:41 O2 Flow Rate 6 10/16/23 17:20 10/20/23 10/21/23 10/21/23 22:59 06:59 14:59 Intake Total 610 / 950 610 / 1560 240 / 240 Balance 610 / 950 610 / 1560 240 / 240 Weight last 48 hrs Weight 81.647 kg Weight 81.788 kg Physical Exam Const: COMMON NORMALS: no acute distress and patient oriented x3 Resp: COMMON NORMALS: normal respiratory effort, No retractions, No use of accessory muscles and clear to auscultation bilaterally AUSCULTATION: clear to auscultation bilaterally Cardio: COMMON NORMALS: regular rate, regular rhythm, S1 normal heart sound present and S2 normal heart sound present RATE: regular rate RHYTHM: regular rhythm HEART SOUNDS: S1 normal heart sound present and S2 normal heart sound present GI: COMMON NORMALS: Normal to inspection, nondistended, normoactive bowel sounds present and non-tender Extremity: COMMON NORMALS: no pedal edema Neuro: COMMON NORMALS: patient oriented x3 Psych: COMMON NORMALS: mental status grossly normal Data 10/21/23 05:00 10/21/23 05:00 Micro: Microbiology 10/16/23 06:42 Blood Culture - Final Blood NO GROWTH AFTER 5 DAYS 10/16/23 06:36 Blood Culture - Final Blood NO GROWTH AFTER 5 DAYS 10/16/23 16:42 Gram Stain - Final Tissue Anaerobic Culture - Preliminary Wound Culture - Final A&P Assessment and plan (1) Traumatic compression fracture of L2 vertebra: (2) Acute osteomyelitis of lumbar spine: (3) Chronic pain: (4) Methadone dependence: (5) Nicotine dependence, unspecified, uncomplicated: (6) Intractable low back pain: (7) Gram-positive bacteremia: (8) History of intravenous drug abuse: Plan intractable low back pain -History of lumbar osteomyelitis, ? Pathologic fracture, ? MRSA bacteremia, ? At LTAC in [place], completed daptomycin 09/16/2023 MRI lumbar spine 09/22/2023 -IMPRESSION: Some images degraded by patient motion. Gadolinium not administered described above. 1.? Persistent findings of discitis/osteomyelitis with interval compression of the L2 vertebral body with loss of approximately 75% vertebral body height. Retropulsion results in moderate central canal stenosis progressed compared to previous. Redundancy of the cauda equina nerve rootlets at the L1 level. Consider spine surgery consultation. 2.? Associated persistent paravertebral soft tissue edema at L1-2 with bone marrow edema. No visualized paravertebral abscess or drainable fluid collection. 3.? No apparent epidural abscess considering lack of gadolinium. 4.? No other significant change compared to previous ? X-ray lumbar spine IMPRESSION: 1. New interval osseous destruction of the lower endplate of L1 apparently secondary to L1-2 discitis and osteomyelitis. 2. Progressive destruction of the L2 vertebral body with only the lower endplate of the vertebra remaining. There is also significant osseous destruction of the L2 pedicles. 3. There appears to be significant L1 retropulsion with some compromise of the spinal canal. ? Transesophageal echocardiogram CONCLUSIONS ?1.? No intracavitary masses or vegetations noted ?2.? Trace to mild mitral regurgitation ?3.? Normal LV size ejection fraction of around 60% ?4.? Intact interatrial septum ?4.? Normal left atrial appendage and contractility. ?5.? No unstable plaques or lesions in the aorta ascending, arch ?and the descending aorta ? Status post, postoperative day 1 Procedure done: 1.? L1-2 laminectomy with partial facetectomy 2.? L2-3 laminectomy with partial facetectomy 3.? Tissue biopsy from lumbar spine ? Plan, ? No alarm symptoms, no saddle or perianal anesthesia, no urinary or bowel incontinence, ? Pain control continue home methadone 25 mg twice daily ? Add Dilaudid 0.5 mg every 4 hours as needed, ? Continue home methylphenidate 20 mg twice daily, continue home lorazepam 1 mg p.o. every 6 hours as needed, ? Blood cultures, 1 out of 4 blood cultures positive, Staph epidermidis, likely contamination, continue vancomycin for now, ? Awaiting surgical site cultures, so far nagative, ? Plan is to either complete 2 weeks of IV antibiotics here in [facility], or discharge to care home facility or LTAC for total 2 weeks of daptomycin or vancomycin since date of surgery 10/16/2023, last day of antibiotics October 30, 2023 ?continue antibiotics vancomycin ? Follow surgical site cultures, so far negative ? Repeat blood cultures so far negative ? Infectious disease on consult ? Orthopedic service on consult ? Chronic pain, continue home medications, ? Full code, ?, Lovenox for DVT prophylaxis Attestations Medical Necessity Statement*: Patient requires hospitalization, requiring IV antibiotics, Diagnoses Traumatic compression fracture of L2 vertebra S32.020A Acute osteomyelitis of lumbar spine M46.26 Chronic pain G89.29 Methadone dependence F11.20 Nicotine dependence, unspecified, uncomplicated F17.200 Intractable low back pain M54.59 Gram-positive bacteremia R78.81 History of intravenous drug abuse F19.11
[2023-10-21] MEDS: ondansetron 2 mg/ML SDV 2 mL 4 MG IVP (14:33)
[2023-10-21] MEDS: enoxaparin 40 mg/0.4 mL Syringe SUBCUT (16:57)
[2023-10-21] MEDS: mirtazapine 15 mg Tablet PO (20:00)
[2023-10-22] VITALS (12 sets, daily range): BP systolic 120–151; BP diastolic 66–88; PULSE 62–89; RESP 18–20; TEMP 36.4–37.2; O2SAT 95–96
[2023-10-22] MEDS: LORazepam 1 mg Tablet PO (00:15)
--- NOTE | 2023-10-22 02:33 | PC.NURSE ---
This nurse has attempted 4 times to gain intravenous access without success. Charge nurse notified and [employer] supervisor called for an u/s guided access attempt
[2023-10-22] MEDS: vancomycin 1,250 MG/250 ML PIGGYBACK 250 MG IV ×2 (03:07→14:23)
[2023-10-22 05:58] LABS: Basophils % 0.4 %; Eosinophils # 0.4 10^3/uL (0.0-0.8); Eosinophils % 5.9 %; Hematocrit 29.2 % (37-53); Lymphocytes # 1.5 10^3/uL (0.8-4.8); Mean Corpuscular HGB Conc 30.8 g/dL (30-55); Mean Corpuscular Hemoglobin 25.2 pg (27-33); Mean Corpuscular Volume 81.8 fl (82-101); Mean Platelet Volume 8.7 fL (7.4-10.4); Monocytes # 0.4 10^3/uL (0.2-0.9); Monocytes % 5.9 %; Neutrophils # 4.48 10^3/uL (1.8-7.7); Neutrophils % 65.5 %; Nucleated Red Blood Cells % 0 %; Platelet Count 352 10^3/cmm (157-399); Red Blood Count 3.57 10^6/uL (3.85-5.65); Red Cell Distribution Width 14.9 % (12.1-15.1); White Blood Count 6.83 10^3/uL (3.29-11.43)
[2023-10-22 06:21] LABS: Alanine Aminotransferase 29 U/L (0-41); Albumin Level 3.1 g/dL (3.5-5.2); Alkaline Phosphatase 87 U/L (40-130); Anion Gap 14.8 (5-19); Aspartate Amino Transferase 30 U/L (0-40); Blood Urea Nitrogen 10 mg/dL (6-20); C Reactive Protein 13.6 mg/L (0.0-4.9); Calcium 9.1 mg/dL (8.5-10.5); Carbon Dioxide 25 mmol/L (22-29); Chloride 100 mmol/L (98-107); Globulin 3.8 g/dL (1.3-4.6); Glomerular Filtration Rate 119.9 mL/min (90-130); Glucose 119 mg/dL (65-115); Magnesium 2.1 mg/dL (1.7-2.3); Osmolality Calculated 282 mOsm/kg (285-295); Phosphorus 4.7 mg/dL (2.5-4.5); Potassium 3.8 mmol/L (3.5-5.1); Sodium 136 mmol/L (136-145); Total Bilirubin 0.2 mg/dL (0.15-1.2); Total Protein 6.9 g/dL (6.6-8.7)
[2023-10-22] MEDS: ondansetron 2 mg/ML SDV 2 mL 4 MG IVP (07:54)
[2023-10-22] MEDS: methylphenidate 10 mg Tablet 20 MG PO ×2 (10:15→18:13)
[2023-10-22] MEDS: gabapentin 300 mg Capsule PO ×3 (10:15→20:06)
[2023-10-22] MEDS: docusate sodium 100 mg Capsule PO ×2 (10:16→18:15)
[2023-10-22] MEDS: methadone 10 mg Tablet 25 MG PO ×2 (10:16→18:16)
[2023-10-22] MEDS: famotidine 20 mg Tablet PO ×2 (10:16→18:15)
[2023-10-22] MEDS: cloNIDine 0.1 mg Tablet PO ×3 (10:16→20:06)
--- NOTE | 2023-10-22 14:33 | PM.PN ---
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: Patient was seen this morning, his only complaint is nausea, we discussed a scopolamine patch he is agreeable Vitals/I&O/Wt Last Vital Signs Temp 98.0 F 10/22/23 12:22 Pulse 73 10/22/23 12:22 Resp 20 H 10/22/23 12:22 BP 127/82 10/22/23 14:23 Pulse Ox 96 10/22/23 12:22 O2 Del Method Room Air 10/22/23 12:22 O2 Flow Rate 6 10/16/23 17:20 10/21/23 10/22/23 10/22/23 22:59 06:59 14:59 Intake Total 535.833 / 1015.833 490 / 1505.833 240 / 240 Balance 535.833 / 1015.833 490 / 1505.833 240 / 240 Weight last 48 hrs Weight 81.647 kg Weight 81.647 kg Physical Exam Const: COMMON NORMALS: no acute distress and patient oriented x3 Resp: COMMON NORMALS: normal respiratory effort, No retractions, No use of accessory muscles and clear to auscultation bilaterally AUSCULTATION: clear to auscultation bilaterally Cardio: COMMON NORMALS: regular rate, regular rhythm, S1 normal heart sound present and S2 normal heart sound present RATE: regular rate RHYTHM: regular rhythm HEART SOUNDS: S1 normal heart sound present and S2 normal heart sound present GI: COMMON NORMALS: Normal to inspection, nondistended, normoactive bowel sounds present and non-tender Extremity: COMMON NORMALS: no pedal edema Neuro: COMMON NORMALS: patient oriented x3 Psych: COMMON NORMALS: mental status grossly normal Data 10/22/23 05:47 10/22/23 05:47 Micro: Microbiology 10/16/23 16:42 Gram Stain - Final Tissue Anaerobic Culture - Preliminary Wound Culture - Final A&P Assessment and plan (1) Traumatic compression fracture of L2 vertebra: (2) Acute osteomyelitis of lumbar spine: (3) Chronic pain: (4) Methadone dependence: (5) Nicotine dependence, unspecified, uncomplicated: (6) Intractable low back pain: (7) Gram-positive bacteremia: (8) History of intravenous drug abuse: Plan intractable low back pain -History of lumbar osteomyelitis, ? Pathologic fracture, ? MRSA bacteremia, ? At LTAC in [place], completed daptomycin 09/16/2023 MRI lumbar spine 09/22/2023 -IMPRESSION: Some images degraded by patient motion. Gadolinium not administered described above. 1.? Persistent findings of discitis/osteomyelitis with interval compression of the L2 vertebral body with loss of approximately 75% vertebral body height. Retropulsion results in moderate central canal stenosis progressed compared to previous. Redundancy of the cauda equina nerve rootlets at the L1 level. Consider spine surgery consultation. 2.? Associated persistent paravertebral soft tissue edema at L1-2 with bone marrow edema. No visualized paravertebral abscess or drainable fluid collection. 3.? No apparent epidural abscess considering lack of gadolinium. 4.? No other significant change compared to previous ? X-ray lumbar spine IMPRESSION: 1. New interval osseous destruction of the lower endplate of L1 apparently secondary to L1-2 discitis and osteomyelitis. 2. Progressive destruction of the L2 vertebral body with only the lower endplate of the vertebra remaining. There is also significant osseous destruction of the L2 pedicles. 3. There appears to be significant L1 retropulsion with some compromise of the spinal canal. ? Transesophageal echocardiogram CONCLUSIONS ?1.? No intracavitary masses or vegetations noted ?2.? Trace to mild mitral regurgitation ?3.? Normal LV size ejection fraction of around 60% ?4.? Intact interatrial septum ?4.? Normal left atrial appendage and contractility. ?5.? No unstable plaques or lesions in the aorta ascending, arch ?and the descending aorta ? Status post, postoperative day 1 Procedure done: 1.? L1-2 laminectomy with partial facetectomy 2.? L2-3 laminectomy with partial facetectomy 3.? Tissue biopsy from lumbar spine ? Plan, ? No alarm symptoms, no saddle or perianal anesthesia, no urinary or bowel incontinence, ? Pain control continue home methadone 25 mg twice daily ? Add Dilaudid 0.5 mg every 4 hours as needed, ? Continue home methylphenidate 20 mg twice daily, continue home lorazepam 1 mg p.o. every 6 hours as needed, ? Blood cultures, 1 out of 4 blood cultures positive, Staph epidermidis, likely contamination, continue vancomycin for now, ? Awaiting surgical site cultures, so far nagative, ? Plan is to either complete 2 weeks of IV antibiotics here in [facility], or discharge to shelter facility or LTAC for total 2 weeks of daptomycin or vancomycin since date of surgery 10/16/2023, last day of antibiotics October 30, 2023 ?continue antibiotics vancomycin ? Follow surgical site cultures, so far negative ? Repeat blood cultures so far negative ? Infectious disease on consult ? Orthopedic service on consult ? Chronic pain, continue home medications, ? Full code, ?, Lovenox for DVT prophylaxis Attestations Medical Necessity Statement*: Patient requires hospitalization for need for IV antibiotics, IV drug user, with concerns for discitis vertebral osteomyelitis, status post surgical intervention Diagnoses Traumatic compression fracture of L2 vertebra S32.020A Acute osteomyelitis of lumbar spine M46.26 Chronic pain G89.29 Methadone dependence F11.20 Nicotine dependence, unspecified, uncomplicated F17.200 Intractable low back pain M54.59 Gram-positive bacteremia R78.81 History of intravenous drug abuse F19.11
[2023-10-22] MEDS: scopolamine 1.5 Patch 1 PATCH TRANSDERMA (15:59)
[2023-10-22] MEDS: enoxaparin 40 mg/0.4 mL Syringe SUBCUT (18:12)
[2023-10-22] MEDS: HYDROcodone-acetaminophen 5-325 mg Tablet 1 TAB PO (18:12)
[2023-10-22] MEDS: mirtazapine 15 mg Tablet PO (20:06)
[2023-10-23] VITALS (9 sets, daily range): BP systolic 95–137; BP diastolic 58–86; PULSE 49–65; RESP 16–19; TEMP 36.4–37; O2SAT 94–97; BMI 24.4
[2023-10-23] MEDS: vancomycin 1,250 MG/250 ML PIGGYBACK 250 MG IV (01:51)
[2023-10-23] MEDS: methadone 10 mg Tablet 25 MG PO ×2 (09:56→17:52)
[2023-10-23] MEDS: cloNIDine 0.1 mg Tablet PO ×3 (09:57→22:08)
[2023-10-23] MEDS: methylphenidate 10 mg Tablet 20 MG PO ×2 (09:57→17:52)
[2023-10-23] MEDS: famotidine 20 mg Tablet PO ×2 (09:57→17:52)
[2023-10-23] MEDS: gabapentin 300 mg Capsule PO ×3 (09:57→22:08)
[2023-10-23] MEDS: HYDROcodone-acetaminophen 5-325 mg Tablet 1 TAB PO ×2 (09:57→22:09)
[2023-10-23] MEDS: docusate sodium 100 mg Capsule PO ×2 (09:57→17:52)
--- NOTE | 2023-10-23 12:56 | PM.PN ---
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, no fever, no cough Vitals/I&O/Wt Last Vital Signs Temp 98.2 F 10/23/23 11:56 Pulse 49 L 10/23/23 11:56 Resp 16 10/23/23 11:56 BP 123/73 10/23/23 11:56 Pulse Ox 97 10/23/23 11:56 O2 Del Method Room Air 10/23/23 11:56 O2 Flow Rate 6 10/16/23 17:20 10/22/23 10/23/23 10/23/23 22:59 06:59 14:59 Intake Total 730 / 970 500.833 / 1470.833 360 / 360 Balance 730 / 970 500.833 / 1470.833 360 / 360 Weight last 48 hrs Weight 81.647 kg Weight 81.647 kg Physical Exam Const: COMMON NORMALS: no acute distress and patient oriented x3 HENMT: COMMON NORMALS: normocephalic HEAD & SCALP: normocephalic Cardio: COMMON NORMALS: regular rate, regular rhythm, S1 normal heart sound present and S2 normal heart sound present RATE: regular rate RHYTHM: regular rhythm HEART SOUNDS: S1 normal heart sound present and S2 normal heart sound present GI: COMMON NORMALS: Normal to inspection, nondistended, normoactive bowel sounds present and non-tender Extremity: COMMON NORMALS: no pedal edema Neuro: COMMON NORMALS: patient oriented x3 Psych: COMMON NORMALS: mental status grossly normal Data 10/22/23 05:47 10/22/23 05:47 Micro: Microbiology 10/16/23 16:42 Gram Stain - Final Tissue Anaerobic Culture - Final Wound Culture - Final A&P Assessment and plan (1) Traumatic compression fracture of L2 vertebra: (2) Acute osteomyelitis of lumbar spine: (3) Chronic pain: (4) Methadone dependence: (5) Nicotine dependence, unspecified, uncomplicated: (6) Intractable low back pain: (7) Gram-positive bacteremia: (8) History of intravenous drug abuse: Plan intractable low back pain -History of lumbar osteomyelitis, ? Pathologic fracture, ? MRSA bacteremia, ? At LTAC in [place], completed daptomycin 09/16/2023 MRI lumbar spine 09/22/2023 -IMPRESSION: Some images degraded by patient motion. Gadolinium not administered described above. 1.? Persistent findings of discitis/osteomyelitis with interval compression of the L2 vertebral body with loss of approximately 75% vertebral body height. Retropulsion results in moderate central canal stenosis progressed compared to previous. Redundancy of the cauda equina nerve rootlets at the L1 level. Consider spine surgery consultation. 2.? Associated persistent paravertebral soft tissue edema at L1-2 with bone marrow edema. No visualized paravertebral abscess or drainable fluid collection. 3.? No apparent epidural abscess considering lack of gadolinium. 4.? No other significant change compared to previous ? X-ray lumbar spine IMPRESSION: 1. New interval osseous destruction of the lower endplate of L1 apparently secondary to L1-2 discitis and osteomyelitis. 2. Progressive destruction of the L2 vertebral body with only the lower endplate of the vertebra remaining. There is also significant osseous destruction of the L2 pedicles. 3. There appears to be significant L1 retropulsion with some compromise of the spinal canal. ? Transesophageal echocardiogram CONCLUSIONS ?1.? No intracavitary masses or vegetations noted ?2.? Trace to mild mitral regurgitation ?3.? Normal LV size ejection fraction of around 60% ?4.? Intact interatrial septum ?4.? Normal left atrial appendage and contractility. ?5.? No unstable plaques or lesions in the aorta ascending, arch ?and the descending aorta ? Status post, postoperative day 1 Procedure done: 1.? L1-2 laminectomy with partial facetectomy 2.? L2-3 laminectomy with partial facetectomy 3.? Tissue biopsy from lumbar spine ? Plan, ? No alarm symptoms, no saddle or perianal anesthesia, no urinary or bowel incontinence, ? Pain control continue home methadone 25 mg twice daily ? Add Dilaudid 0.5 mg every 4 hours as needed, ? Continue home methylphenidate 20 mg twice daily, continue home lorazepam 1 mg p.o. every 6 hours as needed, ? Blood cultures, 1 out of 4 blood cultures positive, Staph epidermidis, likely contamination, continue vancomycin for now, ? Awaiting surgical site cultures, so far nagative, ? Plan is to either complete 2 weeks of IV antibiotics here in [facility], or discharge to snf facility or LTAC for total 2 weeks of daptomycin or vancomycin since date of surgery 10/16/2023, last day of antibiotics October 30, 2023 ?continue antibiotics vancomycin ? Follow surgical site cultures, so far negative ? Repeat blood cultures so far negative ? Infectious disease on consult ? Orthopedic service on consult ? Chronic pain, continue home medications, ? Full code, ?, Lovenox for DVT prophylaxis Attestations Medical Necessity Statement*: patient requires hospitalization for IV abx Diagnoses Traumatic compression fracture of L2 vertebra S32.020A Acute osteomyelitis of lumbar spine M46.26 Chronic pain G89.29 Methadone dependence F11.20 Nicotine dependence, unspecified, uncomplicated F17.200 Intractable low back pain M54.59 Gram-positive bacteremia R78.81 History of intravenous drug abuse F19.11
[2023-10-23 14:14] LABS: Vancomycin Trough 19.4 ug/mL (10-15)
[2023-10-23] MEDS: vancomycin 1,000 MG in sodium chloride 0.9% 250 ML 250 MG IV (15:54)
[2023-10-23] MEDS: enoxaparin 40 mg/0.4 mL Syringe SUBCUT (17:52)
[2023-10-23] MEDS: mirtazapine 15 mg Tablet PO (22:08)
[2023-10-23] MEDS: baclofen 10 mg Tablet PO (22:12)
[2023-10-24] VITALS (10 sets, daily range): BP systolic 117–150; BP diastolic 64–85; PULSE 50–61; RESP 16–19; TEMP 36.7–36.9; O2SAT 96–99
[2023-10-24] MEDS: vancomycin 1,000 MG in sodium chloride 0.9% 250 ML 250 MG IV ×2 (03:12→16:42)
[2023-10-24] MEDS: docusate sodium 100 mg Capsule PO ×2 (09:03→17:56)
[2023-10-24] MEDS: gabapentin 300 mg Capsule PO ×3 (09:03→21:44)
[2023-10-24] MEDS: cloNIDine 0.1 mg Tablet PO ×3 (09:04→21:44)
[2023-10-24] MEDS: famotidine 20 mg Tablet PO ×2 (09:04→17:56)
[2023-10-24] MEDS: methylphenidate 10 mg Tablet 20 MG PO ×2 (09:04→17:55)
[2023-10-24] MEDS: methadone 10 mg Tablet 25 MG PO ×2 (09:04→17:55)
[2023-10-24 10:46] LABS: Anion Gap 13.1 (5-19); Blood Urea Nitrogen 13 mg/dL (6-20); Calcium 8.8 mg/dL (8.5-10.5); Carbon Dioxide 25 mmol/L (22-29); Chloride 102 mmol/L (98-107); Glomerular Filtration Rate 102.7 mL/min (90-130); Glucose 118 mg/dL (65-115); Osmolality Calculated 283 mOsm/kg (285-295); Potassium 4.1 mmol/L (3.5-5.1); Sodium 136 mmol/L (136-145)
[2023-10-24] MEDS: HYDROcodone-acetaminophen 5-325 mg Tablet 1 TAB PO (13:52)
--- NOTE | 2023-10-24 14:31 | PM.PN ---
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: Patient was seen this morning, he has no complaints this morning, Vitals/I&O/Wt Last Vital Signs Temp 98.1 F 10/24/23 12:00 Pulse 52 L 10/24/23 12:00 Resp 16 10/24/23 12:00 BP 133/76 10/24/23 12:00 Pulse Ox 96 10/24/23 12:00 O2 Del Method Room Air 10/24/23 12:00 O2 Flow Rate 6 10/16/23 17:20 10/23/23 10/24/23 10/24/23 22:59 06:59 14:59 Intake Total 490 / 850 250 / 1100 360 / 360 Output Total 700 / 700 Balance 490 / 850 -450 / 400 360 / 360 Weight last 48 hrs Weight 83.092 kg Weight 81.647 kg Physical Exam Const: COMMON NORMALS: no acute distress and patient oriented x3 Resp: COMMON NORMALS: normal respiratory effort, No retractions, No use of accessory muscles and clear to auscultation bilaterally AUSCULTATION: clear to auscultation bilaterally Cardio: COMMON NORMALS: regular rate, regular rhythm, S1 normal heart sound present and S2 normal heart sound present RATE: regular rate RHYTHM: regular rhythm HEART SOUNDS: S1 normal heart sound present and S2 normal heart sound present GI: COMMON NORMALS: Normal to inspection, nondistended, normoactive bowel sounds present and non-tender Extremity: COMMON NORMALS: no pedal edema Neuro: COMMON NORMALS: patient oriented x3 Psych: COMMON NORMALS: mental status grossly normal Data 10/22/23 05:47 10/24/23 10:17 Micro: Microbiology 10/16/23 16:42 Gram Stain - Final Tissue Anaerobic Culture - Final Wound Culture - Final A&P Assessment and plan (1) Traumatic compression fracture of L2 vertebra: (2) Acute osteomyelitis of lumbar spine: (3) Chronic pain: (4) Methadone dependence: (5) Nicotine dependence, unspecified, uncomplicated: (6) Intractable low back pain: (7) Gram-positive bacteremia: (8) History of intravenous drug abuse: Plan intractable low back pain -History of lumbar osteomyelitis, ? Pathologic fracture, ? MRSA bacteremia, ? At LTAC in [place], completed daptomycin 09/16/2023 MRI lumbar spine 09/22/2023 -IMPRESSION: Some images degraded by patient motion. Gadolinium not administered described above. 1.? Persistent findings of discitis/osteomyelitis with interval compression of the L2 vertebral body with loss of approximately 75% vertebral body height. Retropulsion results in moderate central canal stenosis progressed compared to previous. Redundancy of the cauda equina nerve rootlets at the L1 level. Consider spine surgery consultation. 2.? Associated persistent paravertebral soft tissue edema at L1-2 with bone marrow edema. No visualized paravertebral abscess or drainable fluid collection. 3.? No apparent epidural abscess considering lack of gadolinium. 4.? No other significant change compared to previous ? X-ray lumbar spine IMPRESSION: 1. New interval osseous destruction of the lower endplate of L1 apparently secondary to L1-2 discitis and osteomyelitis. 2. Progressive destruction of the L2 vertebral body with only the lower endplate of the vertebra remaining. There is also significant osseous destruction of the L2 pedicles. 3. There appears to be significant L1 retropulsion with some compromise of the spinal canal. ? Transesophageal echocardiogram CONCLUSIONS ?1.? No intracavitary masses or vegetations noted ?2.? Trace to mild mitral regurgitation ?3.? Normal LV size ejection fraction of around 60% ?4.? Intact interatrial septum ?4.? Normal left atrial appendage and contractility. ?5.? No unstable plaques or lesions in the aorta ascending, arch ?and the descending aorta ? Status post, postoperative day 1 Procedure done: 1.? L1-2 laminectomy with partial facetectomy 2.? L2-3 laminectomy with partial facetectomy 3.? Tissue biopsy from lumbar spine ? Plan, ? No alarm symptoms, no saddle or perianal anesthesia, no urinary or bowel incontinence, ? Pain control continue home methadone 25 mg twice daily ? Add Dilaudid 0.5 mg every 4 hours as needed, ? Continue home methylphenidate 20 mg twice daily, continue home lorazepam 1 mg p.o. every 6 hours as needed, ? Blood cultures, 1 out of 4 blood cultures positive, Staph epidermidis, likely contamination, continue vancomycin for now, ? Awaiting surgical site cultures, so far nagative, ? Plan is to either complete 2 weeks of IV antibiotics here in [facility], or discharge to detention facility or LTAC for total 2 weeks of daptomycin or vancomycin since date of surgery 10/16/2023, last day of antibiotics October 30, 2023 ?continue antibiotics vancomycin ? Follow surgical site cultures, so far negative ? Repeat blood cultures so far negative ? Infectious disease on consult ? Orthopedic service on consult ? Chronic pain, continue home medications, ? Full code, ?, Lovenox for DVT prophylaxis Attestations Medical Necessity Statement*: Patient requires hospitalization for IV antibiotics Diagnoses Traumatic compression fracture of L2 vertebra S32.020A Acute osteomyelitis of lumbar spine M46.26 Chronic pain G89.29 Methadone dependence F11.20 Nicotine dependence, unspecified, uncomplicated F17.200 Intractable low back pain M54.59 Gram-positive bacteremia R78.81 History of intravenous drug abuse F19.11
[2023-10-24] MEDS: LORazepam 1 mg Tablet PO ×2 (17:56→23:50)
[2023-10-24] MEDS: mirtazapine 15 mg Tablet PO (21:44)
[2023-10-24] MEDS: ondansetron 2 mg/ML SDV 2 mL 4 MG IVP (22:56)
[2023-10-24] MEDS: baclofen 10 mg Tablet PO (23:50)
[2023-10-25] VITALS (13 sets, daily range): BP systolic 118–141; BP diastolic 76–83; PULSE 57–71; RESP 16–18; TEMP 36.4–37.4; O2SAT 98–99
[2023-10-25] MEDS: HYDROcodone-acetaminophen 5-325 mg Tablet 1 TAB PO ×2 (02:04→15:32)
[2023-10-25] MEDS: vancomycin 1,000 MG in sodium chloride 0.9% 250 ML 250 MG IV ×2 (03:39→16:40)
--- NOTE | 2023-10-25 03:45 | PC.NURSE ---
Patient came out into the hallway and had a slightly unsteady gait. This nurse walked with the patient back to room and had to hold onto patient's arm at one point to keep patient from falling into the wall. The patient stated, I don't know what happened, but one minute I was in bed and the next I must have been sleep walking because I was standing at the foot of the bed. This nurse assisted the patient to his bed and educated the patient that if he was sleep walking and continued to have an unsteady gait that this nurse would have to turn on the bed alarm for safety purposes to ensure the patient doesn't fall when getting up. The patient immediately became frustrated and stating, This is fucking bullshit. You've got to be kidding me. If that's the case, I'm not staying here where I can't get up to pee or do anything without the alarm going off. This nurse again educated the patient that is was not to imprison the patient but to ensure a nurse could be present with the patient being unsteady and that the urinal could be placed close to the patient. The patient stated, I don't care. I'm tired of this shit. I've been in the hospital for the last three months and I'm tired of getting treated like a prisoner. I am leaving in the morning because of this shit. This nurse educated the patient that he has the right to leave, but he would not be able to get his antibiotics and that the pain and infection could become worse and he could potentially . This nurse asked the patient if he will take his IV antibiotic that is due. The patient stated, No, I just ready to go. I'm hurting and no one cares. I can't get my pain medications, and I can just get them at the clinic. This nurse was able to talk to the patient about his IV vancomycin and educated him that his antibiotic would only take about one hour to run and he decided to take it. This nurse told the patient that the bed alarm is not an entrapment device but again is strictly for safety and that this nurse wanted him to stay and get his antibiotics because the patient was almost to his deadline to discharge from the hospital in four to five days. This nurse told the patient that bed alarm would not have to be turned on if the patient stayed in bed until he was a little more steady on his feet and that this nurse did not want him to fall because he could risk hitting his head or re-injuring his back. The patient stated that he would not fall, that he would be careful. The patient calmed down and apologized for getting hateful and being rude.
--- NOTE | 2023-10-25 06:01 | PC.NURSE ---
During 0 vitals this morning this SIGNAL ENGINEER found this patient crawling on the floor picking up trash the patient had dropped when getting out of bed. Patient seemed to be completely out of pain when throwing the trash away and then when the patient went back into the bed for this SIGNAL ENGINEER to check their vitals the patient then stated I'm in so much pain I can't stand it, I can't even get up.
[2023-10-25] MEDS: cyclobenzaprine 10 mg Tablet PO (08:46)
[2023-10-25] MEDS: docusate sodium 100 mg Capsule PO ×2 (08:46→17:36)
[2023-10-25] MEDS: methadone 10 mg Tablet 25 MG PO ×2 (08:46→17:35)
[2023-10-25] MEDS: cloNIDine 0.1 mg Tablet PO ×3 (08:47→21:24)
[2023-10-25] MEDS: famotidine 20 mg Tablet PO ×2 (08:47→17:36)
[2023-10-25] MEDS: gabapentin 300 mg Capsule PO ×3 (08:48→21:24)
[2023-10-25] MEDS: methylphenidate 10 mg Tablet 20 MG PO ×2 (08:49→17:35)
--- NOTE | 2023-10-25 12:54 | PM.PN ---
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: Patient was seen this morning, he has no complaints this morning, afebrile overnight, Vitals/I&O/Wt Last Vital Signs Temp 97.5 F L 10/25/23 11:52 Pulse 64 10/25/23 11:52 Resp 17 10/25/23 11:52 BP 125/76 10/25/23 11:52 Pulse Ox 99 10/25/23 11:52 O2 Del Method Room Air 10/25/23 11:52 O2 Flow Rate 6 10/16/23 17:20 10/24/23 10/25/23 10/25/23 22:59 06:59 14:59 Intake Total 490 / 850 250 / 1100 240 / 240 Output Total 50 / 50 Balance 490 / 850 200 / 1050 240 / 240 Weight last 48 hrs Weight 81.193 kg Weight 83.092 kg Physical Exam Const: COMMON NORMALS: no acute distress and patient oriented x3 Resp: COMMON NORMALS: normal respiratory effort, No retractions, No use of accessory muscles and clear to auscultation bilaterally AUSCULTATION: clear to auscultation bilaterally Cardio: COMMON NORMALS: regular rate, regular rhythm, S1 normal heart sound present and S2 normal heart sound present RATE: regular rate RHYTHM: regular rhythm HEART SOUNDS: S1 normal heart sound present and S2 normal heart sound present GI: COMMON NORMALS: Normal to inspection, nondistended, normoactive bowel sounds present and non-tender Extremity: COMMON NORMALS: no pedal edema Neuro: COMMON NORMALS: patient oriented x3 Psych: COMMON NORMALS: mental status grossly normal Data 10/22/23 05:47 10/24/23 10:17 A&P Assessment and plan (1) Traumatic compression fracture of L2 vertebra: (2) Acute osteomyelitis of lumbar spine: (3) Chronic pain: (4) Methadone dependence: (5) Nicotine dependence, unspecified, uncomplicated: (6) Intractable low back pain: (7) Gram-positive bacteremia: (8) History of intravenous drug abuse: Plan intractable low back pain -History of lumbar osteomyelitis, ? Pathologic fracture, ? MRSA bacteremia, ? At LTAC in [place], completed daptomycin 09/16/2023 MRI lumbar spine 09/22/2023 -IMPRESSION: Some images degraded by patient motion. Gadolinium not administered described above. 1.? Persistent findings of discitis/osteomyelitis with interval compression of the L2 vertebral body with loss of approximately 75% vertebral body height. Retropulsion results in moderate central canal stenosis progressed compared to previous. Redundancy of the cauda equina nerve rootlets at the L1 level. Consider spine surgery consultation. 2.? Associated persistent paravertebral soft tissue edema at L1-2 with bone marrow edema. No visualized paravertebral abscess or drainable fluid collection. 3.? No apparent epidural abscess considering lack of gadolinium. 4.? No other significant change compared to previous ? X-ray lumbar spine IMPRESSION: 1. New interval osseous destruction of the lower endplate of L1 apparently secondary to L1-2 discitis and osteomyelitis. 2. Progressive destruction of the L2 vertebral body with only the lower endplate of the vertebra remaining. There is also significant osseous destruction of the L2 pedicles. 3. There appears to be significant L1 retropulsion with some compromise of the spinal canal. ? Transesophageal echocardiogram CONCLUSIONS ?1.? No intracavitary masses or vegetations noted ?2.? Trace to mild mitral regurgitation ?3.? Normal LV size ejection fraction of around 60% ?4.? Intact interatrial septum ?4.? Normal left atrial appendage and contractility. ?5.? No unstable plaques or lesions in the aorta ascending, arch ?and the descending aorta ? Status post, postoperative day 1 Procedure done: 1.? L1-2 laminectomy with partial facetectomy 2.? L2-3 laminectomy with partial facetectomy 3.? Tissue biopsy from lumbar spine ? Plan, ? No alarm symptoms, no saddle or perianal anesthesia, no urinary or bowel incontinence, ? Pain control continue home methadone 25 mg twice daily ? Continue home methylphenidate 20 mg twice daily, continue home lorazepam 1 mg p.o. every 6 hours as needed, ? Blood cultures, 1 out of 4 blood cultures positive, Staph epidermidis, likely contamination, continue vancomycin for now, ? Awaiting surgical site cultures, no growth ? Plan is to either complete 2 weeks of IV antibiotics here in [facility], or discharge to longterm facility or LTAC for total 2 weeks of daptomycin or vancomycin since date of surgery 10/16/2023, last day of antibiotics October 30, 2023 ?continue antibiotics vancomycin ? Follow surgical site cultures, so far negative ? Repeat blood cultures so far negative ? Infectious disease on consult ? Orthopedic service on consult ? Chronic pain, continue home medications, ? Full code, ?, Lovenox for DVT prophylaxis Attestations Medical Necessity Statement*: Patient requires hospitalization for IV antibiotics Diagnoses Traumatic compression fracture of L2 vertebra S32.020A Acute osteomyelitis of lumbar spine M46.26 Chronic pain G89.29 Methadone dependence F11.20 Nicotine dependence, unspecified, uncomplicated F17.200 Intractable low back pain M54.59 Gram-positive bacteremia R78.81 History of intravenous drug abuse F19.11
[2023-10-25 16:28] LABS: Vancomycin Trough 18.9 ug/mL (10-15)
[2023-10-25] MEDS: mirtazapine 15 mg Tablet PO (21:24)
[2023-10-26] VITALS (7 sets, daily range): BP systolic 119–139; BP diastolic 70–89; PULSE 66–87; RESP 14–18; TEMP 36.6–37.2; O2SAT 94–98
[2023-10-26] MEDS: vancomycin 1,000 MG in sodium chloride 0.9% 250 ML 250 MG IV ×2 (04:34→16:39)
[2023-10-26] MEDS: baclofen 10 mg Tablet PO (04:35)
[2023-10-26] MEDS: HYDROcodone-acetaminophen 5-325 mg Tablet 1 TAB PO ×2 (04:35→21:00)
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
[2023-10-26] MEDS: docusate sodium 100 mg Capsule PO ×2 (09:59→17:48)
[2023-10-26] MEDS: cloNIDine 0.1 mg Tablet PO ×3 (09:59→21:00)
[2023-10-26] MEDS: gabapentin 300 mg Capsule PO ×3 (09:59→21:01)
[2023-10-26] MEDS: methylphenidate 10 mg Tablet 20 MG PO ×2 (10:00→17:48)
[2023-10-26] MEDS: methadone 10 mg Tablet 25 MG PO ×2 (10:00→17:47)
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
[2023-10-26] MEDS: enoxaparin 40 mg/0.4 mL Syringe SUBCUT (16:40)
[2023-10-26] MEDS: mirtazapine 15 mg Tablet PO (21:00)
[2023-10-26] MEDS: guaiFENesin 600 mg Tablet PO (23:01)
[2023-10-27] VITALS (11 sets, daily range): BP systolic 95–127; BP diastolic 57–78; PULSE 58–87; RESP 16–19; TEMP 36.4–37.1; O2SAT 96–99
--- NOTE | 2023-10-27 01:29 | PM.PN ---
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: She is extremely tearful today. States that his sister is sick admitted at a hospital in [place] and his grandmother is dying which is why he is stressed today. He thinks he is having a panic attack. Wishes to go home soon. He is currently rethinking starting Mavyret as he is concerned it will make his nausea much worse. Wants to talk to Iris before making any decisions. Medications: Reviewed: Yes Vitals/I&O/Wt Last Vital Signs Temp 98.8 F 10/27/23 00:00 Pulse 87 10/27/23 00:00 Resp 17 10/27/23 00:00 BP 95/57 10/27/23 00:00 Pulse Ox 99 10/27/23 00:00 O2 Del Method Room Air 10/26/23 16:00 O2 Flow Rate 6 10/16/23 17:20 10/26/23 10/26/23 10/27/23 14:59 22:59 06:59 Intake Total 480 / 480 490 / 970 Balance 480 / 480 490 / 970 Weight last 48 hrs Weight 81.193 kg Weight 81.193 kg Physical Exam Narrative: General: No acute distress, AO x3, tearful, anxious HEENT: PERRLA, pupils bilaterally equal and reactive, pallors not present Chest: Normal vesicular breath sounds, no added sounds, equal good air entry bilaterally CVS: S1-S2 regular, no murmurs, no tachycardia, no gallops, no rubs Abdomen: Soft, nontender, no organomegaly, bowel sounds present Neuro: No focal deficits, no facial deformity, AO x3, power 5/5 in all limbs Data 10/22/23 05:47 10/24/23 10:17 A&P Assessment and plan (1) MRSA bacteremia: (2) History of substance abuse: (3) Hepatitis C: Previously agreeable to starting treatment. 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 Home med ordered for hospital use, however now having second thoughts about it. Wants to discuss with Iris again. Qualifiers: Viral hepatitis chronicity: chronic Hepatic coma status: without hepatic coma Qualified Code(s): B18.2 - Chronic viral hepatitis C (4) Traumatic compression fracture of L2 vertebra: Qualifiers: Encounter type: subsequent encounter (5) Acute osteomyelitis of lumbar spine: Plan Mr. Jean is a patient with a remote history of IV drug use, currently on methadone maintenance,recently treated for MRSA bacteremia and lumbar discitis/osteomyelitis with interval compression in July 2023. . He is s/p treatment with 6 weeks of iv vancomycin/daptomycin for 6 weeks (08/05-09/16) followed by transition to po Bactrim with plan to take total treatment to 12 weeks however patient had issues with poor GI tolerability of bactrim. Follow up MRI on 09/22 showed inetrval progression of destructive changes at levels of L1, L2, L3 , with nerve Redundancy of the cauda equina nerve rootlets at the L1 level. This was thought most likely to be most likely related to destruction from known recent osteomyelitis. CRP had trended down to normal with treatment on 10/12/23. Currently admitted since 10/14 after experiencing worsening pain and having sustained a mechanical fall at home 4-5 days [employer]. He states he hit his back on the kitchen counter. CRP up to 79 from 7 on 10/14 lumbar spine X ray showed New interval osseous destruction of the lower endplate of L1, Progressive destruction of the L2 vertebral body with only the lower endplate of the vertebra remaining, significant L1 retropulsion with some compromise of the spinal canal. Now s/p L1-2-L3 laminectomy with partial facetectomy on 10/16. OR cx from L1-2 disc space negative. Blood cx from 10/14 reported 1/4 positive for Staph epidermidis, likely contaminant. Follow up from 10/16 negative to date. MEME negative Plan to continue iv vancomycin until Dec 1 ( 2 weeks post op) and then discharge home will follow Attestations Medical Necessity Statement*: continued need for iv abx , per primary Coding Level of Care Code Acute Code for [facility] Fwd Diagnoses MRSA bacteremia R78.81; B95.62 History of substance abuse F19.11 Chronic hepatitis C without hepatic coma B18.2 Viral hepatitis chronicity: chronic Hepatic coma status: without hepatic coma Traumatic compression fracture of L2 vertebra S32.020A Encounter type: subsequent encounter Acute osteomyelitis of lumbar spine M46.26
[2023-10-27] MEDS: gabapentin 300 mg Capsule PO ×4 (04:00→20:45)
[2023-10-27] MEDS: vancomycin 1,000 MG in sodium chloride 0.9% 250 ML 250 MG IV ×2 (04:00→16:28)
[2023-10-27] MEDS: cloNIDine 0.1 mg Tablet PO ×3 (10:23→20:45)
[2023-10-27] MEDS: guaiFENesin 600 mg Tablet PO ×2 (10:24→18:11)
[2023-10-27] MEDS: famotidine 20 mg Tablet PO ×2 (10:24→18:10)
[2023-10-27] MEDS: docusate sodium 100 mg Capsule PO ×2 (10:24→18:10)
[2023-10-27] MEDS: methylphenidate 10 mg Tablet 20 MG PO ×2 (10:24→18:10)
[2023-10-27] MEDS: methadone 10 mg Tablet 25 MG PO ×2 (10:25→18:11)
[2023-10-27] MEDS: ondansetron 2 mg/ML SDV 2 mL 4 MG IVP ×3 (10:38→22:35)
--- NOTE | 2023-10-27 12:59 | P.PN_ITS ---
Subjective 2 Subjective: Patient resting comfortably. Denies back pain or leg pain. Vitals/I&O/Wt Last Vital Signs Temp 97.6 F 10/27/23 11:24 Pulse 58 L 10/27/23 11:24 Resp 16 10/27/23 11:24 BP 127/78 10/27/23 11:24 Pulse Ox 97 10/27/23 11:24 O2 Del Method Room Air 10/27/23 11:24 O2 Flow Rate 6 10/16/23 17:20 10/26/23 10/27/23 10/27/23 22:59 06:59 14:59 Intake Total 490 / 970 0 / 0 Balance 490 / 970 0 / 0 Weight last 48 hrs Weight 179 lb Physical Exam 2 Narrative: Patient presents alert and oriented x3 with a good general appearance normal mood and affect. Normal coordination normal stability. Mild tenderness around the incisional site with the incision appear to be healing nicely. Sutures still present. No signs of erythema or drainage. No signs of infection. Patient denies any fevers or chills. 5/5 motor strength both lower extremities with negative straight leg raise bilaterally. Calves are supple no medial thigh tenderness. Pulses are 2+ at the dorsalis pedis and posterior tibial region. Good capillary refill throughout normal sensation light touch both lower extremities. Data 10/22/23 05:47 10/24/23 10:17 A&P Assessment and plan (1) Intractable low back pain: Encouraged the patient to continue a walking program because with bending lifting or twisting. We will have the sutures discontinued on 10/29/2023. Apply a Silverlon dressing. Use Steri-Strips across the incisional site. We will see him back in the office in 1 week's time for a wound check. Attestations 2 Medical Necessity Statement*: Defer to medical team Coding Level of Care Code Acute Code for g Fwd Diagnoses Intractable low back pain M54.59
--- NOTE | 2023-10-27 13:00 | P.PN_ITS ---
Vitals/I&O/Wt Last Vital Signs Temp 97.6 F 10/27/23 11:24 Pulse 58 L 10/27/23 11:24 Resp 16 10/27/23 11:24 BP 127/78 10/27/23 11:24 Pulse Ox 97 10/27/23 11:24 O2 Del Method Room Air 10/27/23 11:24 O2 Flow Rate 6 10/16/23 17:20 10/26/23 10/27/23 10/27/23 22:59 06:59 14:59 Intake Total 490 / 970 0 / 0 Balance 490 / 970 0 / 0 Weight last 48 hrs Weight 81.193 kg Physical Exam 2 Const: COMMON NORMALS: no acute distress and patient oriented x3 Resp: COMMON NORMALS: normal respiratory effort, No retractions, No use of accessory muscles and clear to auscultation bilaterally AUSCULTATION: clear to auscultation bilaterally Cardio: COMMON NORMALS: regular rate, regular rhythm, S1 normal heart sound present, S2 normal heart sound present, No gallops present (Cardio), No clicks present (Cardio) and No murmurs present (Cardio) RATE: regular rate R HYTHM: regular rhythm HEART SOUNDS: S1 normal heart sound present and S2 normal heart sound present GI: COMMON NORMALS: Normal to inspection, nondistended, normoactive bowel sounds present and non-tender Extremity: COMMON NORMALS: no pedal edema Neuro: COMMON NORMALS: patient oriented x3 Data 10/22/23 05:47 10/24/23 10:17 A&P Assessment and plan (1) Traumatic compression fracture of L2 vertebra: Qualifiers: Encounter type: subsequent encounter (2) Acute osteomyelitis of lumbar spine: (3) Chronic pain: (4) Methadone dependence: (5) Nicotine dependence, unspecified, uncomplicated: (6) Intractable low back pain: (7) Gram-positive bacteremia: (8) History of intravenous drug abuse: Plan intractable low back pain -History of lumbar osteomyelitis, ? Pathologic fracture, ? MRSA bacteremia, ? At LTAC in [place], completed daptomycin 09/16/2023 MRI lumbar spine 09/22/2023 -IMPRESSION: Some images degraded by patient motion. Gadolinium not administered described above. 1.? Persistent findings of discitis/osteomyelitis with interval compression of the L2 vertebral body with loss of approximately 75% vertebral body height. Retropulsion results in moderate central canal stenosis progressed compared to previous. Redundancy of the cauda equina nerve rootlets at the L1 level. Consider spine surgery consultation. 2.? Associated persistent paravertebral soft tissue edema at L1-2 with bone marrow edema. No visualized paravertebral abscess or drainable fluid collection. 3.? No apparent epidural abscess considering lack of gadolinium. 4.? No other significant change compared to previous ? X-ray lumbar spine IMPRESSION: 1. New interval osseous destruction of the lower endplate of L1 apparently secondary to L1-2 discitis and osteomyelitis. 2. Progressive destruction of the L2 vertebral body with only the lower endplate of the vertebra remaining. There is also significant osseous destruction of the L2 pedicles. 3. There appears to be significant L1 retropulsion with some compromise of the spinal canal. ? Transesophageal echocardiogram CONCLUSIONS ?1.? No intracavitary masses or vegetations noted ?2.? Trace to mild mitral regurgitation ?3.? Normal LV size ejection fraction of around 60% ?4.? Intact interatrial septum ?4.? Normal left atrial appendage and contractility. ?5.? No unstable plaques or lesions in the aorta ascending, arch ?and the descending aorta ? Status post, postoperative day 1 Procedure done: 1.? L1-2 laminectomy with partial facetectomy 2.? L2-3 laminectomy with partial facetectomy 3.? Tissue biopsy from lumbar spine ? Plan, ? No alarm symptoms, no saddle or perianal anesthesia, no urinary or bowel incontinence, ? Pain control continue home methadone 25 mg twice daily ? Continue home methylphenidate 20 mg twice daily, continue home lorazepam 1 mg p.o. every 6 hours as needed, ? Blood cultures, 1 out of 4 blood cultures positive, Staph epidermidis, likely contamination, continue vancomycin for now, ? Awaiting surgical site cultures, no growth ? Plan is to either complete 2 weeks of IV antibiotics here in [facility], or discharge to [facility] facility or LTAC for total 2 weeks of daptomycin or vancomycin since date of surgery 10/16/2023, last day of antibiotics October 30, 2023 ?continue antibiotics vancomycin ? Follow surgical site cultures, so far negative ? Repeat blood cultures so far negative ? Infectious disease on consult ? Orthopedic service on consult ? Chronic pain, continue home medications, ? Full code, ?, Lovenox for DVT prophylaxis Attestations 2 Medical Necessity Statement*: Patient requires hospitalization for IV antibiotics Coding Level of Care Code Acute Code for Chg Fwd Diagnoses Traumatic compression fracture of L2 vertebra S32.020A Encounter type: subsequent encounter Acute osteomyelitis of lumbar spine M46.26 Chronic pain G89.29 Methadone dependence F11.20 Nicotine dependence, unspecified, uncomplicated F17.200 Intractable low back pain M54.59 Gram-positive bacteremia R78.81 History of intravenous drug abuse F19.11
[2023-10-27 14:49] LABS: Alanine Aminotransferase 37 U/L (0-41); Albumin Level 3.7 g/dL (3.5-5.2); Alkaline Phosphatase 108 U/L (40-130); Aspartate Amino Transferase 33 U/L (0-40); Blood Urea Nitrogen 20 mg/dL (6-20); Calcium 9.5 mg/dL (8.5-10.5); Carbon Dioxide 22 mmol/L (22-29); Chloride 101 mmol/L (98-107); Globulin 4.7 g/dL (1.3-4.6); Glomerular Filtration Rate 71.1 mL/min (90-130); Glucose 87 mg/dL (65-115); Osmolality Calculated 284 mOsm/kg (285-295); Sodium 136 mmol/L (136-145); Total Bilirubin 0.2 mg/dL (0.15-1.2); Total Protein 8.4 g/dL (6.6-8.7)
[2023-10-27] MEDS: HYDROcodone-acetaminophen 5-325 mg Tablet 1 TAB PO (16:37)
[2023-10-27] MEDS: enoxaparin 40 mg/0.4 mL Syringe SUBCUT (18:10)
[2023-10-27] MEDS: mirtazapine 15 mg Tablet PO (20:46)
[2023-10-27] MEDS: LORazepam 1 mg Tablet PO (23:51)
[2023-10-28] VITALS (13 sets, daily range): BP systolic 102–158; BP diastolic 63–81; PULSE 56–72; RESP 16–20; TEMP 36.4–37; O2SAT 91–97
[2023-10-28] MEDS: gabapentin 300 mg Capsule PO ×4 (03:27→22:06)
[2023-10-28] MEDS: ondansetron 2 mg/ML SDV 2 mL 4 MG IVP ×4 (03:27→22:06)
[2023-10-28] MEDS: vancomycin 1,000 MG in sodium chloride 0.9% 250 ML 250 MG IV ×2 (03:27→16:30)
[2023-10-28] MEDS: cyclobenzaprine 10 mg Tablet PO (06:20)
[2023-10-28] MEDS: HYDROcodone-acetaminophen 5-325 mg Tablet 1 TAB PO ×2 (06:20→20:19)
[2023-10-28 06:46] LABS: Basophils # 0.1 10^3/uL (0.0-0.1); Basophils % 0.8 %; Eosinophils # 0.5 10^3/uL (0.0-0.8); Eosinophils % 6.9 %; Lymphocytes # 1.7 10^3/uL (0.8-4.8); Lymphocytes % 25.8 %; Mean Corpuscular HGB Conc 30.3 g/dL (30-55); Mean Corpuscular Hemoglobin 25.6 pg (27-33); Mean Corpuscular Volume 84.5 fl (82-101); Mean Platelet Volume 8.6 fL (7.4-10.4); Monocytes # 0.5 10^3/uL (0.2-0.9); Monocytes % 7.8 %; Neutrophils # 3.81 10^3/uL (1.8-7.7); Neutrophils % 58.2 %; Nucleated Red Blood Cells % 0 %; Platelet Count 288 10^3/cmm (157-399); Red Blood Count 3.67 10^6/uL (3.85-5.65); Red Cell Distribution Width 15.8 % (12.1-15.1); White Blood Count 6.54 10^3/uL (3.29-11.43)
[2023-10-28] MEDS: methadone 10 mg Tablet 25 MG PO ×2 (09:45→18:34)
[2023-10-28] MEDS: methylphenidate 10 mg Tablet 20 MG PO ×2 (09:45→18:34)
[2023-10-28] MEDS: guaiFENesin 600 mg Tablet PO ×2 (09:45→18:34)
[2023-10-28] MEDS: famotidine 20 mg Tablet PO (09:45)
[2023-10-28] MEDS: cloNIDine 0.1 mg Tablet PO ×3 (09:47→20:18)
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
--- NOTE | 2023-10-28 13:30 | P.PN_ITS ---
Subjective 2 Subjective: Patient is resting comfortably in bed, has no complaints this morning Vitals/I&O/Wt Last Vital Signs Temp 97.6 F 10/28/23 11:54 Pulse 56 L 10/28/23 11:54 Resp 20 H 10/28/23 11:54 BP 128/79 10/28/23 11:54 Pulse Ox 97 10/28/23 11:54 O2 Del Method Room Air 10/28/23 11:54 O2 Flow Rate 6 10/16/23 17:20 10/27/23 10/28/23 10/28/23 22:59 06:59 14:59 Intake Total 610 / 850 250 / 1100 480 / 480 Balance 610 / 850 250 / 1100 480 / 480 Weight last 48 hrs Weight 81.732 kg Physical Exam 2 Const: COMMON NORMALS: no acute distress and patient oriented x3 Resp: COMMON NORMALS: normal respiratory effort, No retractions, No use of accessory muscles and clear to auscultation bilaterally AUSCULTATION: clear to auscultation bilaterally Cardio: COMMON NORMALS: regular rate, regular rhythm, S1 normal heart sound present and S2 normal heart sound present RATE: regular rate RHYTHM: r egular rhythm HEART SOUNDS: S1 normal heart sound present and S2 normal heart sound present GI: COMMON NORMALS: Normal to inspection, nondistended, normoactive bowel sounds present and non-tender Extremity: COMMON NORMALS: no pedal edema Neuro: COMMON NORMALS: patient oriented x3 Psych: COMMON NORMALS: mental status grossly normal Data 10/28/23 06:36 10/27/23 14:20 A&P Assessment and plan (1) Traumatic compression fracture of L2 vertebra: Qualifiers: Encounter type: subsequent encounter (2) Acute osteomyelitis of lumbar spine: (3) Chronic pain: (4) Methadone dependence: (5) Nicotine dependence, unspecified, uncomplicated: (6) Intractable low back pain: (7) Gram-positive bacteremia: (8) History of intravenous drug abuse: Plan intractable low back pain -History of lumbar osteomyelitis, ? Pathologic fracture, ? MRSA bacteremia, ? At LTAC in [place], completed daptomycin 09/16/2023 MRI lumbar spine 09/22/2023 -IMPRESSION: Some images degraded by patient motion. Gadolinium not administered described above. 1.? Persistent findings of discitis/osteomyelitis with interval compression of the L2 vertebral body with loss of approximately 75% vertebral body height. Retropulsion results in moderate central canal stenosis progressed compared to previous. Redundancy of the cauda equina nerve rootlets at the L1 level. Consider spine surgery consultation. 2.? Associated persistent paravertebral soft tissue edema at L1-2 with bone marrow edema. No visualized paravertebral abscess or drainable fluid collection. 3.? No apparent epidural abscess considering lack of gadolinium. 4.? No other significant change compared to previous ? X-ray lumbar spine IMPRESSION: 1. New interval osseous destruction of the lower endplate of L1 apparently secondary to L1-2 discitis and osteomyelitis. 2. Progressive destruction of the L2 vertebral body with only the lower endplate of the vertebra remaining. There is also significant osseous destruction of the L2 pedicles. 3. There appears to be significant L1 retropulsion with some compromise of the spinal canal. ? Transesophageal echocardiogram CONCLUSIONS ?1.? No intracavitary masses or vegetations noted ?2.? Trace to mild mitral regurgitation ?3.? Normal LV size ejection fraction of around 60% ?4.? Intact interatrial septum ?4.? Normal left atrial appendage and contractility. ?5.? No unstable plaques or lesions in the aorta ascending, arch ?and the descending aorta ? Status post, postoperative day 1 Procedure done: 1.? L1-2 laminectomy with partial facetectomy 2.? L2-3 laminectomy with partial facetectomy 3.? Tissue biopsy from lumbar spine ? Plan, ? No alarm symptoms, no saddle or perianal anesthesia, no urinary or bowel incontinence, ? Pain control continue home methadone 25 mg twice daily ? Continue home methylphenidate 20 mg twice daily, continue home lorazepam 1 mg p.o. every 6 hours as needed, ? Blood cultures, 1 out of 4 blood cultures positive, Staph epidermidis, likely contamination, continue vancomycin for now, ? Awaiting surgical site cultures, no growth ? Plan is to either complete 2 weeks of IV antibiotics here in [facility], or discharge to snf facility or LTAC for total 2 weeks of daptomycin or vancomycin since date of surgery 10/16/2023, last day of antibiotics October 30, 2023 ?continue antibiotics vancomycin ? Follow surgical site cultures, so far negative ? Repeat blood cultures so far negative ? Infectious disease on consult ? Orthopedic service on consult ? Chronic pain, continue home medications, ? Full code, ?, Lovenox for DVT prophylaxis Attestations 2 Medical Necessity Statement*: Patient requires hospitalization for IV antibiotics Diagnoses Traumatic compression fracture of L2 vertebra S32.020A Encounter type: subsequent encounter Acute osteomyelitis of lumbar spine M46.26 Chronic pain G89.29 Methadone dependence F11.20 Nicotine dependence, unspecified, uncomplicated F17.200 Intractable low back pain M54.59 Gram-positive bacteremia R78.81 History of intravenous drug abuse F19.11
[2023-10-28] MEDS: mupirocin oint 22 gm 1 APPLIC NOSTRIL-B (18:33)
[2023-10-28] MEDS: enoxaparin 40 mg/0.4 mL Syringe SUBCUT (18:33)
[2023-10-28] MEDS: mirtazapine 15 mg Tablet PO (20:19)
[2023-10-29] VITALS (14 sets, daily range): BP systolic 92–122; BP diastolic 55–82; PULSE 58–72; RESP 15–19; TEMP 36.4–37.3; O2SAT 94–99
[2023-10-29] MEDS: gabapentin 300 mg Capsule PO ×4 (04:02→21:18)
[2023-10-29] MEDS: ondansetron 2 mg/ML SDV 2 mL 4 MG IVP ×4 (04:02→21:35)
[2023-10-29] MEDS: vancomycin 1,000 MG in sodium chloride 0.9% 250 ML 250 MG IV ×2 (04:02→21:17)
--- NOTE | 2023-10-29 07:36 | P.PN_ITS ---
Subjective 2 Subjective: Patient continues to improve. Has minimal back pain. Vitals/I&O/Wt Last Vital Signs Temp 97.5 F L 10/29/23 03:20 Pulse 60 10/29/23 03:20 Resp 15 10/29/23 03:20 BP 94/60 10/29/23 03:20 Pulse Ox 97 10/29/23 03:20 O2 Del Method Room Air 10/29/23 03:20 O2 Flow Rate 6 10/16/23 17:20 10/28/23 10/29/23 10/29/23 22:59 06:59 14:59 Intake Total 490 / 970 250 / 1220 Output Total 50 / 50 Balance 490 / 970 200 / 1170 Weight last 48 hrs Weight 181 lb 6 oz Weight 180 lb 3 oz Physical Exam 2 Narrative: Patient presents alert and oriented x3 with a good general appearance normal mood and affect. Normal coordination normal stability. Mild tenderness around the incisional site with the incision appear to be healing nicely. No signs of erythema or drainage. No signs of infection. Patient denies any fevers or chills. 5/5 motor strength both lower extremities with negative straight leg raise bilaterally. Calves are supple no medial thigh tenderness. Pulses are 2+ at the dorsalis pedis and posterior tibial region. Good capillary refill throughout normal sensation light touch both lower extremities. Data 10/28/23 06:36 10/27/23 14:20 A&P Assessment and plan (1) Intractable low back pain: Discontinue the sutures to the lumbar spine apply Steri-Strips across the incisional site use Silverlon dressing. We will see him back in the office in 1 to 2 weeks for wound check with Dr. Lopez. Continue mobilizing with no bending lifting or twisting. Attestations 2 Medical Necessity Statement*: Defer to medical team Coding Level of Care Code Acute Code for Chg Fwd Diagnoses Intractable low back pain M54.59
[2023-10-29] MEDS: pantoprazole DR 40 mg Tablet PO (10:27)
[2023-10-29] MEDS: methylphenidate 10 mg Tablet 20 MG PO ×2 (10:27→17:50)
[2023-10-29] MEDS: guaiFENesin 600 mg Tablet PO ×2 (10:27→17:50)
[2023-10-29] MEDS: cloNIDine 0.1 mg Tablet PO ×3 (10:28→21:18)
[2023-10-29] MEDS: methadone 10 mg Tablet 25 MG PO ×2 (10:32→17:50)
[2023-10-29] MEDS: chlorhexidine gluconate 4% Btl 118 mL 1 APPLIC TOPICAL (10:54)
[2023-10-29] MEDS: mupirocin oint 22 gm 1 APPLIC NOSTRIL-B ×2 (10:56→17:49)
--- NOTE | 2023-10-29 15:14 | PM.PN ---
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: Tolerating Mavyret. Has some issues with nausea, however switch to Protonix and seems to be tolerating this okay for now. He is to complete his IV antibiotics tomorrow. Suture site appears to be healthy. Added MRSA decolonization. Medications: Reviewed: Yes Medication Review Details: Current Medications Acetaminophen (Acetaminophen 325 Mg Tablet) 650 mg PO Q6H PRN PRN Reason: Mild/Mod Pain Or Temp >/= 101 Baclofen (Baclofen 10 Mg Tablet) 10 mg PO BID PRN PRN Reason: Pain Last Admin: 10/14/23 23:15 Dose: 10 mg Clonidine HCl (Clonidine 0.1 Mg Tablet) 0.1 mg PO TID [facility] Last Admin: 10/16/23 08:42 Dose: Not Given Cyclobenzaprine HCl (Cyclobenzaprine 10 Mg Tablet) 10 mg PO TID PRN PRN Reason: Muscle Spasm Enoxaparin Sodium (Enoxaparin 40 Mg/0.4 Ml Syringe) 40 mg SUBCUT Q24H [facility] Last Admin: 10/15/23 18:03 Dose: 40 mg Famotidine (Famotidine 20 Mg Tablet) 20 mg PO BID [facility] Last Admin: 10/16/23 08:43 Dose: 20 mg Gabapentin (Gabapentin 300 Mg Capsule) 300 mg PO TID [facility] Last Admin: 10/16/23 08:43 Dose: 300 mg Hydromorphone HCl (Hydromorphone 1 Mg/Ml Inj 1 Ml) 0.5 mg IVP Q4H PRN PRN Reason: PAIN Last Admin: 10/15/23 18:05 Dose: 0.5 mg Sodium Chloride (Sodium Chloride 0.9%) 1,000 mls @ 100 mls/hr IV .Q10H [facility] Last Admin: 10/16/23 01:40 Dose: 100 mls/hr Vancomycin/PEG/NADA/Lysine/Water (Vancocin) 1,250 mg in 250 mls @ 250 mls/hr IV Q12H [facility] Last Admin: 10/16/23 08:36 Dose: 250 mls/hr Sodium Chloride (Sodium Chloride 0.9%) 1,000 mls @ 30 mls/hr IV .Q24H [facility] Stop: 10/17/23 10:29 Lidocaine (Lidocaine 5% Patch) 1 patch TOPICAL [id number] [facility] Last Admin: 10/16/23 08:45 Dose: 1 patch Lidocaine HCl (Lidocaine 1% Inj 10 Ml (Per Ml)) 0.1 ml INTRADERMA PRN PRN PRN Reason: anesthetic prior to IV start Lidocaine HCl (Lidocaine 2% Viscous 15 Ml Udc) 1 ml TOPICAL PRN PRN PRN Reason: Anesthetic prior to IV start Lorazepam (Lorazepam 1 Mg Tablet) 1 mg PO Q6H PRN PRN Reason: Anxiety Last Admin: 10/15/23 11:05 Dose: 1 mg Methadone HCl (Methadone 10 Mg Tablet) 25 mg PO BID [facility] Last Admin: 10/16/23 08:44 Dose: 25 mg Methylphenidate HCl (Methylphenidate 10 Mg Tablet) 20 mg PO BID [facility] Last Admin: 10/16/23 08:43 Dose: 20 mg Midazolam HCl (Midazolam 1 Mg/Ml Inj 2 Ml) 2 mg IVP Q5M PRN PRN Reason: Preop Anxiety Mirtazapine (Mirtazapine 15 Mg Tablet) 15 mg PO BEDTIME [facility] Last Admin: 10/15/23 20:54 Dose: 15 mg Morphine Sulfate (Morphine 4 Mg/Ml Sdv 1 Ml) 0 mg IVP Q5M PRN PRN Reason: Breakthrough Pain PACU PhaseII Ondansetron HCl (Ondansetron 2 Mg/Ml Sdv 2 Ml) 4 mg IVP Q6H PRN PRN Reason: NAUSEA AND VOMITING Last Admin: 10/15/23 12:24 Dose: 4 mg Ondansetron HCl (Ondansetron 2 Mg/Ml Sdv 2 Ml) 4 mg IVP Q15M PRN PRN Reason: Nausea/Vomiting PACU PHASE II Vitals/I&O/Wt Last Vital Signs Temp 98.6 F 10/29/23 11:03 Pulse 66 10/29/23 11:03 Resp 16 10/29/23 11:03 BP 122/79 10/29/23 11:03 Pulse Ox 99 10/29/23 11:03 O2 Del Method Room Air 10/29/23 11:03 O2 Flow Rate 6 10/16/23 17:20 10/29/23 10/29/23 10/29/23 06:59 14:59 22:59 Intake Total 250 / 1220 240 / 240 Output Total 50 / 50 Balance 200 / 1170 240 / 240 Weight last 48 hrs Weight 82.27 kg Weight 81.732 kg Physical Exam Narrative: General: No acute distress, AO x3 HEENT: PERRLA, pupils bilaterally equal and reactive, pallors not present Chest: Normal vesicular breath sounds, no added sounds, equal good air entry bilaterally CVS: S1-S2 regular, no murmurs, no tachycardia, no gallops, no rubs Abdomen: Soft, nontender, no organomegaly, bowel sounds present Neuro: No focal deficits, no facial deformity, AO x3, power 5/5 in all limbs Data 10/28/23 06:36 10/27/23 14:20 A&P Assessment and plan (1) MRSA bacteremia: (2) History of substance abuse: (3) Hepatitis C: started on Mavyret Qualifiers: Viral hepatitis chronicity: chronic Hepatic coma status: without hepatic coma Qualified Code(s): B18.2 - Chronic viral hepatitis C (4) Traumatic compression fracture of L2 vertebra: Qualifiers: Encounter type: subsequent encounter (5) Acute osteomyelitis of lumbar spine: Plan Mr. Jean is a patient with a remote history of IV drug use, currently on methadone maintenance,recently treated for MRSA bacteremia and lumbar discitis/osteomyelitis with interval compression in July 2023. . He is s/p treatment with 6 weeks of iv vancomycin/daptomycin for 6 weeks (08/05-09/16) followed by transition to po Bactrim with plan to take total treatment to 12 weeks however patient had issues with poor GI tolerability of bactrim. Follow up MRI on 09/22 showed inetrval progression of destructive changes at levels of L1, L2, L3 , with nerve Redundancy of the cauda equina nerve rootlets at the L1 level. This was thought most likely to be most likely related to destruction from known recent osteomyelitis. CRP had trended down to normal with treatment on 10/12/23. Currently admitted since 10/14 after experiencing worsening pain and having sustained a mechanical fall at home 4-5 days [employer]. He states he hit his back on the kitchen counter. lumbar spine X ray showed New interval osseous destruction of the lower endplate of L1, Progressive destruction of the L2 vertebral body with only the lower endplate of the vertebra remaining, significant L1 retropulsion with some compromise of the spinal canal. Now s/p L1-2-L3 laminectomy with partial facetectomy on 10/16. OR cx from L1-2 disc space negative. Blood cx from 10/14 reported 1/4 positive for Staph epidermidis, likely contaminant. Follow up from 10/16 negative to date. MEME negative Plan to continue iv vancomycin until Dec ( 2 weeks post op) and then discharge home Currently his wound appears to be healing okay, however given the patient's gait instability and propensity for falls, prescription opiate use, I am concerned that he remains at high risk for wound dehiscence. will follow Attestations Medical Necessity Statement*: per allison tafoya Coding Level of Care Code Acute Code for g Fwd Diagnoses MRSA bacteremia R78.81; B95.62 History of substance abuse F19.11 Chronic hepatitis C without hepatic coma B18.2 Viral hepatitis chronicity: chronic Hepatic coma status: without hepatic coma Traumatic compression fracture of L2 vertebra S32.020A Encounter type: subsequent encounter Acute osteomyelitis of lumbar spine M46.26
[2023-10-29 15:49] LABS: Vancomycin Trough 20.2 ug/mL (10-15)
--- NOTE | 2023-10-29 17:19 | PM.PN ---
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: Patient was seen this morning, he has no complaints Vitals/I&O/Wt Last Vital Signs Temp 99.2 F 10/29/23 16:00 Pulse 68 10/29/23 16:00 Resp 17 10/29/23 16:00 BP 121/82 10/29/23 16:25 Pulse Ox 98 10/29/23 16:00 O2 Del Method Room Air 10/29/23 16:00 O2 Flow Rate 6 10/16/23 17:20 10/29/23 10/29/23 10/29/23 06:59 14:59 22:59 Intake Total 250 / 1220 240 / 240 Output Total 50 / 50 Balance 200 / 1170 240 / 240 Weight last 48 hrs Weight 82.27 kg Weight 81.732 kg Physical Exam Const: COMMON NORMALS: no acute distress and patient oriented x3 Resp: COMMON NORMALS: normal respiratory effort, No retractions, No use of accessory muscles and clear to auscultation bilaterally AUSCULTATION: clear to auscultation bilaterally Cardio: COMMON NORMALS: regular rate, regular rhythm, S1 normal heart sound present and S2 normal heart sound present RATE: regular rate RHYTHM: regular rhythm HEART SOUNDS: S1 normal heart sound present and S2 normal heart sound present GI: COMMON NORMALS: Normal to inspection, nondistended, normoactive bowel sounds present and non-tender Extremity: COMMON NORMALS: no pedal edema Neuro: COMMON NORMALS: patient oriented x3 Data 10/28/23 06:36 10/27/23 14:20 A&P Assessment and plan (1) Traumatic compression fracture of L2 vertebra: Qualifiers: Encounter type: subsequent encounter (2) Acute osteomyelitis of lumbar spine: (3) Chronic pain: (4) Methadone dependence: (5) Nicotine dependence, unspecified, uncomplicated: (6) Intractable low back pain: (7) Gram-positive bacteremia: (8) History of intravenous drug abuse: Plan intractable low back pain -History of lumbar osteomyelitis, ? Pathologic fracture, ? MRSA bacteremia, ? At LTAC in [place], completed daptomycin 09/16/2023 MRI lumbar spine 09/22/2023 -IMPRESSION: Some images degraded by patient motion. Gadolinium not administered described above. 1.? Persistent findings of discitis/osteomyelitis with interval compression of the L2 vertebral body with loss of approximately 75% vertebral body height. Retropulsion results in moderate central canal stenosis progressed compared to previous. Redundancy of the cauda equina nerve rootlets at the L1 level. Consider spine surgery consultation. 2.? Associated persistent paravertebral soft tissue edema at L1-2 with bone marrow edema. No visualized paravertebral abscess or drainable fluid collection. 3.? No apparent epidural abscess considering lack of gadolinium. 4.? No other significant change compared to previous ? X-ray lumbar spine IMPRESSION: 1. New interval osseous destruction of the lower endplate of L1 apparently secondary to L1-2 discitis and osteomyelitis. 2. Progressive destruction of the L2 vertebral body with only the lower endplate of the vertebra remaining. There is also significant osseous destruction of the L2 pedicles. 3. There appears to be significant L1 retropulsion with some compromise of the spinal canal. ? Transesophageal echocardiogram CONCLUSIONS ?1.? No intracavitary masses or vegetations noted ?2.? Trace to mild mitral regurgitation ?3.? Normal LV size ejection fraction of around 60% ?4.? Intact interatrial septum ?4.? Normal left atrial appendage and contractility. ?5.? No unstable plaques or lesions in the aorta ascending, arch ?and the descending aorta ? Status post, postoperative day 1 Procedure done: 1.? L1-2 laminectomy with partial facetectomy 2.? L2-3 laminectomy with partial facetectomy 3.? Tissue biopsy from lumbar spine ? Plan, ? No alarm symptoms, no saddle or perianal anesthesia, no urinary or bowel incontinence, ? Pain control continue home methadone 25 mg twice daily ? Continue home methylphenidate 20 mg twice daily, continue home lorazepam 1 mg p.o. every 6 hours as needed, ? Blood cultures, 1 out of 4 blood cultures positive, Staph epidermidis, likely contamination, continue vancomycin for now, ? Awaiting surgical site cultures, no growth ? Plan is to either complete 2 weeks of IV antibiotics here in [facility], or discharge to custodial facility or LTAC for total 2 weeks of daptomycin or vancomycin since date of surgery 10/16/2023, last day of antibiotics October 30, 2023 ?continue antibiotics vancomycin ? Follow surgical site cultures, so far negative ? Repeat blood cultures so far negative ? Infectious disease on consult ? Orthopedic service on consult ? Chronic pain, continue home medications, ? Full code, ?, Lovenox for DVT prophylaxis Attestations Medical Necessity Statement*: Patient requires hospitalization for IV antibiotics Diagnoses Traumatic compression fracture of L2 vertebra S32.020A Encounter type: subsequent encounter Acute osteomyelitis of lumbar spine M46.26 Chronic pain G89.29 Methadone dependence F11.20 Nicotine dependence, unspecified, uncomplicated F17.200 Intractable low back pain M54.59 Gram-positive bacteremia R78.81 History of intravenous drug abuse F19.11
[2023-10-29] MEDS: enoxaparin 40 mg/0.4 mL Syringe SUBCUT (17:49)
--- NOTE | 2023-10-29 18:55 | PC.NURSE ---
Removed 7 Stitches from back incision per JUHI Hong. Wound is clean dry and free of redness or drainage.
[2023-10-29] MEDS: mirtazapine 15 mg Tablet PO (21:18)
[2023-10-30] MEDS: ondansetron 2 mg/ML SDV 2 mL 4 MG IVP ×2 (02:32→08:56)
[2023-10-30] MEDS: gabapentin 300 mg Capsule PO ×2 (03:32→09:48)
[2023-10-30 04:20] VITALS: BP 95/62; PULSE 57; RESP 15; TEMP 36.7; O2SAT 95
[2023-10-30 06:47] LABS: Anion Gap 14.3 (5-19); Blood Urea Nitrogen 22 mg/dL (6-20); Carbon Dioxide 26 mmol/L (22-29); Chloride 102 mmol/L (98-107); Glomerular Filtration Rate 79.4 mL/min (90-130); Glucose 172 mg/dL (65-115); Osmolality Calculated 293 mOsm/kg (285-295); Potassium 4.3 mmol/L (3.5-5.1); Sodium 138 mmol/L (136-145)
[2023-10-30 08:00] VITALS: BP 98/67; PULSE 58; RESP 17; TEMP 36.7; O2SAT 96
[2023-10-30 09:34] VITALS: RESP 16
[2023-10-30] MEDS: methadone 10 mg Tablet 25 MG PO (09:34)
[2023-10-30] MEDS: pantoprazole DR 40 mg Tablet PO (09:35)
[2023-10-30] MEDS: methylphenidate 10 mg Tablet 20 MG PO (09:35)
[2023-10-30] MEDS: guaiFENesin 600 mg Tablet PO (09:35)
[2023-10-30] MEDS: chlorhexidine gluconate 4% Btl 118 mL 1 APPLIC TOPICAL (09:46)
[2023-10-30 09:47] VITALS: BP 122/81
[2023-10-30] MEDS: cloNIDine 0.1 mg Tablet PO (09:47)
[2023-10-30] MEDS: mupirocin oint 22 gm 1 APPLIC NOSTRIL-B (09:47)
[2023-10-30 11:46] VITALS: BP 112/75; PULSE 59; RESP 18; TEMP 36.3; O2SAT 98
--- NOTE | 2023-10-30 11:48 | PM.DCS ---
Discharge Providers Date of Admission: 10/14/23 16:07 Date of Discharge: October 30, 2023 Attending Provider at Admission: Harry Gomez MD Attending Provider at Discharge: Harry Gomez MD Primary Care Provider: Harjit Kohli DO Diagnoses at Discharge Discharge Diagnosis (1) Traumatic compression fracture of L2 vertebra: Status: Acute Qualifiers: Encounter type: subsequent encounter (2) Acute osteomyelitis of lumbar spine: Status: Acute (3) Chronic pain: Status: Acute (4) Methadone dependence: Status: Acute (5) Nicotine dependence, unspecified, uncomplicated: Status: Acute (6) Intractable low back pain: Status: Acute (7) Gram-positive bacteremia: Status: Acute (8) History of intravenous drug abuse: Status: Acute Reason for Visit Reason for Visit: abn lab Hospital Course Hospital Course Joby Jean is a 48 year old male with a past medical history lumbar osteomyelitis, pathologic fracture, MRSA bacteremia, was at [facility], on daptomycin, completed antibiotic course 09/16, prior history of IV drug abuse, denies any drug use now, currently on p.o. Bactrim, chronic pain, on methadone, who presents to [facility] who presents to [facility] due to severe intractable back pain Patient tells me for the last few days he has been having severe low back pain, no nausea, no vomiting, denies any fevers, no chills, no urinary continence, no bowel incontinence, no saddle perianal anesthesia, no recent falls, no recent injuries, denies IV drug use, Patient was admitted to [facility] for intractable low back pain -History of lumbar osteomyelitis, ? Pathologic fracture, ? MRSA bacteremia, ? At [facility] in [place], completed daptomycin 09/16/2023 MRI lumbar spine 09/22/2023 -IMPRESSION: Some images degraded by patient motion. Gadolinium not administered described above. 1.? Persistent findings of discitis/osteomyelitis with interval compression of the L2 vertebral body with loss of approximately 75% vertebral body height. Retropulsion results in moderate central canal stenosis progressed compared to previous. Redundancy of the cauda equina nerve rootlets at the L1 level. Consider spine surgery consultation. 2.? Associated persistent paravertebral soft tissue edema at L1-2 with bone marrow edema. No visualized paravertebral abscess or drainable fluid collection. 3.? No apparent epidural abscess considering lack of gadolinium. 4.? No other significant change compared to previous ? X-ray lumbar spine IMPRESSION: 1. New interval osseous destruction of the lower endplate of L1 apparently secondary to L1-2 discitis and osteomyelitis. 2. Progressive destruction of the L2 vertebral body with only the lower endplate of the vertebra remaining. There is also significant osseous destruction of the L2 pedicles. 3. There appears to be significant L1 retropulsion with some compromise of the spinal canal. ? Transesophageal echocardiogram CONCLUSIONS ?1.? No intracavitary masses or vegetations noted ?2.? Trace to mild mitral regurgitation ?3.? Normal LV size ejection fraction of around 60% ?4.? Intact interatrial septum ?4.? Normal left atrial appendage and contractility. ?5.? No unstable plaques or lesions in the aorta ascending, arch ?and the descending aorta ? Status post, Procedure done: 1.? L1-2 laminectomy with partial facetectomy 2.? L2-3 laminectomy with partial facetectomy 3.? Tissue biopsy from lumbar spine ? No alarm symptoms, no saddle or perianal anesthesia, no urinary or bowel incontinence, ? Pain control continue home methadone 25 mg twice daily ? Continue home methylphenidate 20 mg twice daily, continue home lorazepam 1 mg p.o. every 6 hours as needed, ? Blood cultures, 1 out of 4 blood cultures positive, Staph epidermidis, likely contamination ? urgical site cultures, no growth ? Infectious disease was consulted, recommended 2 weeks of IV vancomycin since surgery -Attempts were made to place and shelter or long-term care facility which were unsuccessful, patient was kept as inpatient received 2 weeks of IV antibiotic therapy, completed antibiotic therapy as inpatient ?For patient's hepatitis C, will be discharged on Mavyret, follow-up with infectious disease as outpatient, ? Follow-up with orthopedic service as outpatient, ? Advised to continue to be mobile, as there is risk of DVTs and PEs, ? If any calf pain or calf swelling or shortness of breath go to emergency room, ? If any fevers, chills please go to the emergency room ? Please abstain from any drug use -see primary care in 1 week Physical Exam Const: COMMON NORMALS: no acute distress and patient oriented x3 Neck/C-Spine: COMMON NORMALS: no JVD Resp: COMMON NORMALS: normal respiratory effort, No retractions, No use of accessory muscles and clear to auscultation bilaterally AUSCULTATION: clear to auscultation bilaterally Cardio: COMMON NORMALS: no JVD, regular rate, regular rhythm, S1 normal heart sound present and S2 normal heart sound present RATE: regular rate RHYTHM: regular rhythm HEART SOUNDS: S1 normal heart sound present and S2 normal heart sound present GI: COMMON NORMALS: Normal to inspection, nondistended, normoactive bowel sounds present and non-tender Extremity: COMMON NORMALS: no pedal edema Neuro: COMMON NORMALS: patient oriented x3 Psych: COMMON NORMALS: mental status grossly normal Discharge Data Studies Completed and Pending Completed Studies During Hospitalization Category Date Time Status XR chest 1V portable [id number] Stat Exams 10/14/23 13:53 Completed XR lumbar spine 1 view portable [XR lumbar spine 1V Exams 10/15/23 13:35 Completed port [id number]] Routine XR lumbar spine 1V [id number] Routine Exams 10/16/23 15:50 Completed CV. echo transesophageal [id number] Routine Ultrasound 10/16/23 11:00 Completed Pending at discharge Category Date Time Status Basic Metabolic Panel AM LABS Lab 10/31/23 04:00 Ordered Basic Metabolic Panel AM LABS Lab 11/01/23 04:00 Ordered HIV 1&2 Antigen & Antibody Routine Lab 10/16/23 13:12 Received Liver Fibrosis Hep Panel w/FIB AM LABS Lab 10/20/23 06:49 Results Occult Blood Stool [Immunochemical Fecal OCB] Routine Lab 10/21/23 08:18 Uncollected Laboratory Results WBC 6.54 10^3/uL (3.29-11.43) 10/28/23 06:36 RBC 3.67 10^6/uL (3.85-5.65) L 10/28/23 06:36 Hgb 9.40 g/dL (11.27-16.99) L 10/28/23 06:36 Hct 31.0 % (37-53) L 10/28/23 06:36 MCV 84.5 fl (82-101) 10/28/23 06:36 MCH 25.6 pg (27-33) L 10/28/23 06:36 MCHC 30.3 g/dL (30-55) 10/28/23 06:36 RDW 15.8 % (12.1-15.1) H 10/28/23 06:36 Plt Count 288 10^3/cmm (157-399) 10/28/23 06:36 Liver Fibrosis Plt Cnt 346 (140-400) 10/20/23 06:49 MPV 8.6 fL (7.4-10.4) 10/28/23 06:36 Neut % (Auto) 58.2 % 10/28/23 06:36 Lymph % (Auto) 25.8 % 10/28/23 06:36 [place] % (Auto) 7.8 % 10/28/23 06:36 Eos % (Auto) 6.9 % 10/28/23 06:36 Baso % (Auto) 0.8 % 10/28/23 06:36 Neut # (Auto) 3.81 10^3/uL (1.8-7.7) 10/28/23 06:36 Lymph # (Auto) 1.7 10^3/uL (0.8-4.8) 10/28/23 06:36 [place] # (Auto) 0.5 10^3/uL (0.2-0.9) 10/28/23 06:36 Eos # (Auto) 0.5 10^3/uL (0.0-0.8) 10/28/23 06:36 Baso # (Auto) 0.1 10^3/uL (0.0-0.1) 10/28/23 06:36 Nucleated RBC % (auto) 0 % 10/28/23 06:36 Nucleated RBCs # 0.0 /100WBC 10/28/23 06:36 ESR 82 mm/hr (0-10) H 10/14/23 14:32 PT 13.90 SECONDS (12.1-14.9) 10/14/23 14:32 INR 1.03 (0.8-1.2) 10/14/23 14:32 Sodium 138 mmol/L (136-145) 10/30/23 05:59 Potassium 4.3 mmol/L (3.5-5.1) 10/30/23 05:59 Chloride 102 mmol/L (98-107) 10/30/23 05:59 Carbon Dioxide 26 mmol/L (22-29) 10/30/23 05:59 Anion Gap 14.3 (5-19) 10/30/23 05:59 BUN 22 mg/dL (6-20) H 10/30/23 05:59 Creatinine 1.0 mg/dL (0.7-1.2) 10/30/23 05:59 GFR Calculation 79.4 mL/min (90-130) L 10/30/23 05:59 Glucose 172 mg/dL (65-115) H 10/30/23 05:59 Calculated Osmolality 293 mOsm/kg (285-295) 10/30/23 05:59 Lactic Acid 0.9 mmol/L (0.5-2.2) 10/14/23 14:32 Calcium 9.0 mg/dL (8.5-10.5) 10/30/23 05:59 Phosphorus 4.7 mg/dL (2.5-4.5) H 10/22/23 05:47 Magnesium 2.1 mg/dL (1.7-2.3) 10/22/23 05:47 Iron 22 ug/dL (59-158) L 10/21/23 05:00 TIBC 200 mcg/dl 10/21/23 05:00 % Saturation 11.0 % (20-50) L 10/21/23 05:00 Unsat Iron Binding 178 ug/dL (112-347) 10/21/23 05:00 Ferritin 310 ng/mL (30-400) 10/21/23 05:00 Total Bilirubin 0.2 mg/dL (0.15-1.2) 10/27/23 14:20 AST 33 U/L (0-40) 10/27/23 14:20 ALT 37 U/L (0-41) 10/27/23 14:20 Alkaline Phosphatase 108 U/L (40-130) 10/27/23 14:20 Creatine Kinase 143 U/L (39-308) 10/17/23 06:53 C-Reactive Protein 13.6 mg/L (0.0-4.9) H 10/22/23 05:47 Total Protein 8.4 g/dL (6.6-8.7) 10/27/23 14:20 Albumin 3.7 g/dL (3.5-5.2) 10/27/23 14:20 Globulin 4.7 g/dL (1.3-4.6) H 10/27/23 14:20 Procalcitonin 0.08 ng/mL (0-0.5) 10/14/23 14:32 TSH 1.11 uIU/mL (0.27-4.20) 10/14/23 14:32 Urine Color Dark yellow (Yellow) 10/14/23 17:40 Urine Appearance Clear (CLEAR) 10/14/23 17:40 Urine pH 5 (5-7) 10/14/23 17:40 Ur Specific [place] 1.030 (1.005-1.030) 10/14/23 17:40 Urine Protein Neg (Negative) 10/14/23 17:40 Urine Glucose (UA) Norm (Normal) 10/14/23 17:40 Urine Ketones Negative (Negative) 10/14/23 17:40 Urine Blood Neg (Negative) 10/14/23 17:40 Urine Nitrate Negative (Negative) 10/14/23 17:40 Urine Bilirubin Neg (Negative) 10/14/23 17:40 Urine Urobilinogen Norm mg/dL (Negative) 10/14/23 17:40 Ur Leukocyte Esterase Negative (Negative) 10/14/23 17:40 Vancomycin Trough 20.2 ug/mL (10-15) H 10/29/23 15:15 Urine Opiates Screen Positive ng/mL (Negative) H 10/14/23 17:40 Ur Barbiturates Screen Negative ng/mL (Negative) 10/14/23 17:40 Ur Phencyclidine Scrn Negative ng/mL (Negative) 10/14/23 17:40 Ur Amphetamines Screen Negative ng/mL (Negative) 10/14/23 17:40 U Benzodiazepines Scrn Positive ng/mL (Negative) H 10/14/23 17:40 Urine Cocaine Screen Negative ng/mL (Negative) 10/14/23 17:40 U Marijuana (THC) Screen Positive ng/mL (Negative) H 10/14/23 17:40 Ethyl Alcohol < 10 mg/dL (0-10) 10/14/23 14:32 Vitals Last Vital Signs Temp 97.3 F L 10/30/23 11:46 Pulse 59 L 10/30/23 11:46 Resp 18 10/30/23 11:46 BP 112/75 10/30/23 11:46 Pulse Ox 98 10/30/23 11:46 O2 Del Method Room Air 10/30/23 11:46 O2 Flow Rate 6 10/16/23 17:20 Discharge Plan Discharge Patient Disposition: Home Condition: Stable Prescriptions: New Mavyret 100-40 mg tablet 3 tab PO DAILY 56 Days Qty: 168 0RF Rx Instructions: must administer with a meal/food Continued clonidine HCl 0.1 mg tablet 0.1 mg PO TID (DME) TLSO BRACE See Rx Instructions .Route .MEDSUPPLY Qty: 1 0RF Rx Instructions: As directed cyclobenzaprine 10 mg tablet 10 mg PO TID PRN (Reason: Muscle Spasm) methylphenidate HCl 20 mg tablet 20 mg PO BID methadone 10 mg Tablet 50 mg PO DAILY famotidine 20 mg tablet 20 mg PO BID mirtazapine 15 mg tablet 15 mg PO BEDTIME lorazepam 1 mg tablet 1 mg PO Q6H PRN (Reason: Anxiety) ondansetron 4 mg tablet,disintegrating 8 mg PO BID PRN (Reason: Nausea) baclofen 10 mg tablet 10 mg PO BID PRN (Reason: Pain) lidocaine 5 % adhesive patch,medicated 1 patch topical [id number] ibuprofen 600 mg Tablet 300 mg PO Q6H PRN (Reason: Pain) Changed gabapentin 300 mg capsule 300 mg PO Q6H 30 Days Qty: 120 0RF Discontinued sulfamethoxazole-trimethoprim [Bactrim DS] 800-160 mg tablet 1 tab PO BID 90 Days Qty: 180 0RF Discharge Orders: Discharge Order (Routine); Ordered 10/30/23 Ordered By: Harry Gomez Referrals: Jacob Lopez DO [Physician] - 2 weeks (We have notified your physician's clinic of the need for a follow-up appointment to be scheduled. If you have not heard from them within the next 2 business days, please call them directly. ) Harjit Kohli DO [Primary Care Provider] - Antonia Kapoor MD [Hospitalist] - 2 weeks (We have notified your physician's clinic of the need for a follow-up appointment to be scheduled. If you have not heard from them within the next 2 business days, please call them directly. ) Discharge Diet: Advance as tolerated Discharge Activity: Limit activity as instructed Patient Instructions: Opioid Safety Activity Restrictions/Additional Instructions: Thank you for choosing [facility] for your care! The following is a list of instructions, from your provider, to follow upon your discharge to ensure you have the optimal recovery from your recent injury or surgery. Follow-up care is a quintana part of your treatment and safety. Be sure to make and go to all appointments and call your doctor if you are having problems. If you do not already have a follow-up appointment made, call Dr. Lopez's] office in the next 1-3 days to make follow up appointment for [1-2] weeks at [phone]. It is also a good idea to know your test results and keep a list of the medicines you take. Medications will be prescribed for you at your provider's discretion. These medications are to be used as instructed; if they are taken more often that prescribed they will not be refilled early and in most cases will not be refilled at all. > When a refill is needed, you should contact lori monroe 2-3 business days before your prescription runs out. Medications will NOT be refilled by environmental planner providers after hours! > Many pain medications contain Tylenol (Acetaminophen). Do not consume more than 4,000 mg of Tylenol per day in total with any combination of medications. > Pain medications can cause constipation. Please use an over the counter stool softener as directed, while taking pain medications. Consult your local pharmacist with questions or recommendations on stool softeners. If constipation persists, contact our office or your primary care provider. > While under our care, you are not to receive pain medications or other controlled substances from any other provider unless our office is notified and approves. Any attempts to do so will result in refusal to prescribe any further pain medications and possible dismissal from our practice. ? Walking is essential for the healing process after surgery. We would like you to slowly advance your walking. This should be done on relatively flat clear ground (inside or out) or can be done on a treadmill. Remember this goal does not have to happen all at once, slowly increase your distance and duration. This can be broken into more more than one walk per day as tolerated. Patients who walk as directed after surgery rarely require Physical Therapy. In the unlikely event this issue arises your provider will direct hospital staff to make the appropriate arrangements. ? No lifting over 5 pounds {a gallon of milk) or bending/twisting until further notice. Each of these activities places an unnecessary amount of stress onto the body and can impede the delicate healing process. > Instead of bending at the waist, keep your back straight and bend at the knees. > Instead of twisting your torso, keep your back straight and turn your entire body with your feet. ? You may sleep in any position which makes you comfortable. Many patients find comfort sleeping in a reclining chair. It is not abnormal to have difficulty sleeping for the first several weeks following your surgery. We recommend trying Benadry! or Tylenol PM as directed to help with your sleeping difficulties. Both medications are over the counter and available without prescription. ? NO SMOKING!!! Smoking dramatically increases the probability of developing postoperative wound infections. ? Common complaints after lumbar and/or thoracic spine surgery include, but are not limited to: numbness and/or tingling in the legs, pain around the incision and surrounding tissues, muscle spasms, or stiffness of the middle to low back. Contact our office if these symptoms persist or if an acute change occurs. ? No driving for the first 3-5days, and not while taking narcotics until seen at your follow-up appointment and cleared. There are no restrictions for riding on short trips, however if you take a longer trip, arrangements should be made to make regular stops to get out of the vehicle and stretch . ? Swelling is an unfortunate event that will take place with any surgery and is the primary source of your postoperative discomfort. While walking and regular approved activities helps control inflammation, there are additional steps you can take to minimize swelling. > Place ice over the surgical site and surrounding tissue for twenty minutes, followed by applying a low/medium heat (heating pad) for an additional twenty minutes every 1-2 hours as needed for painrelief. > You may use of over the counter anti-inflammatory medications (Ibuprofen, Motrin, Aleve, Advil, etc) as directed on the package label. These types of medicines will significantly reduce the amount of discomfort you experience after surgery from swelling. It should be noted that if you have and allergy to any of these medications, or a history of ulcers or kidney disease you should consult you primary care provider prior to starting these medications. Discharge Attestations Time Spent in Discharge Care*: greater than 30 min Quality Metrics Clinical Quality Measures [ No reported AMI, CVA or VTE this stay] Coding Level of Care Code 85847 Total time (in minutes) for Discharge: 45 Diagnoses Traumatic compression fracture of L2 vertebra S32.020A Encounter type: subsequent encounter Acute osteomyelitis of lumbar spine M46.26 Chronic pain G89.29 Methadone dependence F11.20 Nicotine dependence, unspecified, uncomplicated F17.200 Intractable low back pain M54.59 Gram-positive bacteremia R78.81 History of intravenous drug abuse F19.11
[2023-10-30] MEDS: DAPTOmycin 500 MG in sodium chloride 0.9% (100 ml) 100 ML 100 MG IV (13:27)
[2023-10-30 15:00] VITALS: BP 112/75; PULSE 59; RESP 18; TEMP 36.3; O2SAT 98
[2023-11-03 13:44] LABS: HIV 1 & 2 Antibody Non-Reactive (Non-Reactiv); HIV 1 & 2 Antigen Non-Reactive (Non-Reactiv)
[2023-11-05 11:33] LABS: Liver Fibrosis Protein, Total 6.3
[2023-11-05 11:34] LABS: Albumin 3.1; Alkaline phosphatase 72; Bilirubin, Direct 0.1; Bilirubin, Total 0.2; FIB 4 Index 0.61; Globulin 3.2; Liver Fibrosis ALT 24; Liver Fibrosis AST 21
== END 2023-10-30 15:01 | disposition home or self-care (01) | DRG 519 ==
LOC: ER 13:50 → MEDSURG 16:08
PROVIDERS: Emergency Medicine; Internal Medicine Cardiovascular Disease; Orthopaedic Surgery; Student in an Organized Health Care Education/Training Program; Admitting Provider Family Medicine; Emergency Provider Family Medicine; PCP Electrodiagnostic Medicine; Visit Provider Family Medicine
PROC: B24BZZZ Ultrasonography of Heart with Aorta (ICD-10-PCS; CPT 93312; principal; 2023-10-16 11:00)
PROC: 00NY0ZZ Release Lumbar Spinal Cord, Open Approach (ICD-10-PCS; principal; 2023-10-16 15:10)
DX: M46.26 Osteomyelitis of vertebra, lumbar region (principal); F33.9 Major depressive disorder, recurrent, unspecified; G89.29 Other chronic pain; F11.90 Opioid use, unspecified, uncomplicated; B95.7 Other staphylococcus as the cause of diseases classified elsewhere; F19.11 Other psychoactive substance abuse, in remission; F90.9 Attention-deficit hyperactivity disorder, unspecified type; F17.210 Nicotine dependence, cigarettes, uncomplicated; F40.10 Social phobia, unspecified; B18.2 Chronic viral hepatitis C; Z86.14 Personal history of Methicillin resistant Staphylococcus aureus infection; Z81.3 Family history of other psychoactive substance abuse and dependence
CPT/HCPCS: 36415; 71045; 72020; 76000; 80048; 80053; 80202; 80306; 80307; 81003; 82550; 82728; 82977; 83540; 83550; 83605; 83735; 83883; 84100; 84145; 84443; 84450; 84460; 84520; 85025; 85610; 85651; 86140; 87040; 87070; 87075; 87077; 87150; 87205; 87806; 93005; 93312; 93320; 93325; 94664; 96372; 96374; 97116; 97161; 97530; 99285; J0696; J0878; J1170; J1650; J1885; J2250; J2405; J2704; J2710; J3010; J3370; J3490; J7030; J7050; Q0162

== ENCOUNTER 2023-11-07 16:04 | Inpatient (IN) | payer MEDICAID, SELFPAY ==
[2023-11-07] VITALS (8 sets, daily range): BP systolic 83–164; BP diastolic 66–101; PULSE 74–101; RESP 16–22; TEMP 36.7–37.1; O2SAT 94–98; BMI 20.3
--- NOTE | 2023-11-07 16:11 | CTR_ITS ---
PROCEDURE INFORMATION: Exam: CT Lumbar Spine Without Contrast Exam date and time: 11/07/2023 5:21 PM Age: 48 years old Clinical indication: Low back pain; Prior surgery; Surgery date: <1 month; Surgery type: Lumbar; Additional info: Recetn back surgery/trauma/hx osteomyelitis L spine TECHNIQUE: Imaging protocol: Computed tomography of the lumbar spine without contrast. Radiation optimization: All CT scans at this facility use at least one of these dose optimization techniques: automated exposure control; mA and/or kV adjustment per patient size (includes targeted exams where dose is matched to clinical indication); or iterative reconstruction. REPORTING DATA: Count of CT and Cardiac NM exams in prior 12 months: This patient has received 0 known CTs and 0 known cardiac nuclear medicine studies in the 12 months prior to the current study. COMPARISON: MR lumbar spine wo con* [id number] 09/22/2023 2:37 PM RADIATION DOSE METRICS: Total DLP (mGy-cm): 358.32 FINDINGS: Bones/joints: Bony erosion and sclerotic changes associated with discitis and osteomyelitis involving L1-L2 disc space with erosion and almost complete collapse of the L2 vertebral body height. There is bony retropulsion at L1-L2 into the central canal causing moderate to marked central canal stenosis and narrowing. Intraperitoneal space: Other findings including visualized abdomen and pelvis: None. Soft tissues: Unremarkable. CT/CT lumbar spine wo con* [id number] IMPRESSION: Progressive discitis/osteomyelitis of L1-L2 with almost complete collapse of the L2 vertebral body height and bony retropulsion with associated moderate to marked central canal stenosis. The aforementioned findings initiated a critical results communication pathway. An addendum will be issued at the time of clinician notification.
--- NOTE | 2023-11-07 16:31 | PC.NURSE ---
PATIENT REFUSED MORPHINE. WASTED IN PYXIS WITH YOUSUF ESPINOZA RN. PATIENT REFUSED TORADOL. PROVIDER NOTIFIED OF BOTH.
--- NOTE | 2023-11-07 16:44 | W.ED.BACK ---
Documented by User: Yonis Jacques DO 11/08/23 17:02 HPI - Back Pain/Injury General: Chief Complaint: Back Pain/Injury Stated Complaint: LOW BACK PAIN S/P SURGERY Time Seen by Provider: 11/07/23 16:07 Source: patient Mode of arrival: EMS History of Present Illness: 48-year-old male with a history of lumbar compression fracture lumbar osteomyelitis with abscess. Comes in today complaining of severe back pain. Yesterday he slipped in the shower had a spinning sensation and twisted and developed back spasm. Patient declined pain medications were initially offered in the emergency room. MD elicited complaint: back pain Pertinent past history: prior back pain Onset (ago): day(s) Timing: constant Quality: spasming Location: lumbar spine Exacerbating factors: none Relieving factors: none Associated symptoms: Deny abdominal pain, arthralgias, chills, change in bowel habits, difficulty walking, dysuria, fatigue, fecal incontinence, fever(s), hematuria, myalgias, nausea, numbness, syncope, tingling/numbness/burning, urinary frequency, urinary urgency, vomiting or weakness Review of Systems Const: Denies: fever(s), chills or fatigue Card: Denies: chest pain or syncope Resp: Denies: dyspnea GI: Denies: abdominal pain, nausea, vomiting, fecal incontinence or change in bowel habits : Denies: dysuria, urinary frequency, urinary urgency or hematuria Musc: Denies: neck pain or back pain Skin/Breast: Denies: rash Neuro: Denies: difficulty walking [facility] ED PFSH: Medical History History of drainage of abscess multiple Trauma in childhood Social anxiety disorder Femoral acetabular impingement Bleeding per rectum History of substance abuse Narcotic abuse Surgical History History of liver biopsy 2012 History of colonoscopy 2008 History of facial surgery 2013 No pertinent past surgical history Social History Smoking and tobacco/nicotine status: current every day tobacco/nicotine user cigarettes Packs smoked per day: 1 Years cigarettes smoked: 30 Quit status (tobacco/nicotine): has tried quititng Number of times tried to quit tobacco: 2 Second hand smoke exposure: Yes Alcohol intake: current Substance/Drug Use: current Substance/Drug use frequency: daily Other substance/drug use details: Fentanyl Current gender identity: Male Physical Exam Const: COMMON NORMALS: no acute distress GENERAL APPEARANCE: cooperative and comfortable ORIENTATION/CONSCIOUSNESS: Yes awake, Yes oriented to person, Yes oriented to place and Yes oriented to time HENMT: COMMON NORMALS: normocephalic, atraumatic and hearing grossly normal bilaterally HEAD & SCALP: normocephalic and atraumatic Resp: COMMON NORMALS: normal respiratory effort, No retractions, No use of accessory muscles and clear to auscultation bilaterally AUSCULTATION: clear to auscultation bilaterally Cardio: COMMON NORMALS: regular rate, regular rhythm and No murmurs present (Cardio) RATE: regular rate RHYTHM: regular rhythm GI: COMMON NORMALS: Soft to palpation and No hepatosplenomegaly present AUSCULTATION: Yes normoactive bowel sounds PALPATION: Yes Soft to palpation, No Tenderness to palpation present (GI), No Guarding due to palpation present (GI) and Yes No hepatosplenomegaly present Extremity: COMMON NORMALS: normal to inspection, capillary refill normal, no clubbing, cyanosis or edema, no calf tenderness and no pedal edema Neuro: SENSORIUM/ORIENTATION: Yes oriented to person, Yes oriented to place and Yes oriented to time Skin: COMMON NORMALS: no rashes or lesions noted GENERAL SKIN EXAM: no rashes or lesions noted Course Vital Signs: Vital signs: Vital Signs Temperature 97.5 F L 11/08/23 11:54 Pulse Rate 62 11/08/23 11:54 Respiratory Rate 18 11/08/23 11:54 Blood Pressure 117/57 11/08/23 15:36 Pulse Oximetry 97 11/08/23 11:54 Oxygen Delivery Me thod Room Air 11/08/23 11:54 MDM - Back Pain/Injury Medical Decision Making Care signed out to Dr. Palacio at change of shift. See final notes for diagnosis and disposition. 48-year-old male received in checkout from Dr. Peter. This gentleman has an L2 that shows progressive discitis/osteomyelitis with some bony retropulsion. His white blood cell count is 13. 85% neutrophils. CRP is 11. He essentially has intractable pain. He will be admitted. Will treat empirically with IV antibiotics after blood cultures. Hospitalist will see the patient in the ER. Orthopedic spine has been consulted, and will see the patient in the morning. Medical Records I reviewed the patient's medical records. Labs I reviewed the patient's lab results. 11/07/23 18:55 11/07/23 18:55 Radiology Impressions Lumbar Spine CT 11/07/23 16:11 IMPRESSION: Progressive discitis/osteomyelitis of L1-L2 with almost complete collapse of the L2 vertebral body height and bony retropulsion with associated moderate to marked central canal stenosis. The aforementioned findings initiated a critical results communication pathway. An addendum will be issued at the time of clinician notification. ADDENDUM: 11/07/231817 THIS REPORT CONTAINS FINDINGS THAT MAY BE CRITICAL TO PATIENT CARE. The findings were verbally communicated via telephone conference with Dr. Palacio at 6:16 PM [employer]TER on 11/07/2023. The findings were acknowledged and understood. Lumbar Spine MRI 11/08/23 07:01 IMPRESSION: 1. L1-L2 discitis. 2. Multilevel spinal stenosis and neural foraminal narrowing is detailed above. 3. No disc herniation. 4. Osteomyelitis of the L1, L2, and L3 vertebrae. 5. Moderate L1 compression deformity and severe L 2 compression deformity could be acute or subacute. 6. 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 7. Bilateral L1 and L2 laminectomies. Thoracic Spine MRI 11/08/23 07:01 IMPRESSION: Grossly unremarkable examination. Laboratory Results WBC 12.97 10^3/uL (3.29-11.43) H 11/07/23 18:55 RBC 4.28 10^6/uL (3.85-5.65) 11/07/23 18:55 Hgb 11.00 g/dL (11.27-16.99) L 11/07/23 18:55 Hct 35.2 % (37-53) L 11/07/23 18:55 MCV 82.2 fl (82-101) 11/07/23 18:55 MCH 25.7 pg (27-33) L 11/07/23 18:55 MCHC 31.3 g/dL (30-55) 11/07/23 18:55 RDW 15.2 % (12.1-15.1) H 11/07/23 18:55 Plt Count 246 10^3/cmm (157-399) 11/07/23 18:55 MPV 8.8 fL (7.4-10.4) 11/07/23 18:55 Neut % (Auto) 85.4 % 11/07/23 18:55 Lymph % (Auto) 7.9 % 11/07/23 18:55 Ballard % (Auto) 4.8 % 11/07/23 18:55 Eos % (Auto) 1.2 % 11/07/23 18:55 Baso % (Auto) 0.4 % 11/07/23 18:55 Neut # (Auto) 11.08 10^3/uL (1.8-7.7) H 11/07/23 18:55 Lymph # (Auto) 1.0 10^3/uL (0.8-4.8) 11/07/23 18:55 Ballard # (Auto) 0.6 10^3/uL (0.2-0.9) 11/07/23 18:55 Eos # (Auto) 0.2 10^3/uL (0.0-0.8) 11/07/23 18:55 Baso # (Auto) 0.1 10^3/uL (0.0-0.1) 11/07/23 18:55 Nucleated RBC % (auto) 0 % 11/07/23 18:55 Nucleated RBCs # 0.0 /100WBC 11/07/23 18:55 ESR 51 mm/hr (0-10) H 11/07/23 18:55 Sodium 136 mmol/L (136-145) 11/07/23 18:55 Potassium 4.2 mmol/L (3.5-5.1) 11/07/23 18:55 Chloride 98 mmol/L (98-107) 11/07/23 18:55 Carbon Dioxide 24 mmol/L (22-29) 11/07/23 18:55 Anion Gap 18.2 (5-19) 11/07/23 18:55 BUN 20 mg/dL (6-20) 11/07/23 18:55 Creatinine 1.0 mg/dL (0.7-1.2) 11/07/23 18:55 GFR Calculation 79.4 mL/min (90-130) L 11/07/23 18:55 Glucose 89 mg/dL (65-115) 11/07/23 18:55 Calculated Osmolality 284 mOsm/kg (285-295) L 11/07/23 18:55 Calcium 9.6 mg/dL (8.5-10.5) 11/07/23 18:55 C-Reactive Protein 10.9 mg/L (0.0-4.9) H 11/07/23 18:55 Vitamin B12 552 pg/mL (232-1245) 11/07/23 18:55 TSH 1.99 uIU/mL (0.27-4.20) 11/07/23 18:55 Discharge Plan Discharge Patient Disposition: Admitted As Inpatient Admit Provider: Sierra Ramos Clinical Impression: Intractable back pain, Osteomyelitis of lumbar spine Condition: Stable Coding Level of Care Code ED [employer] for [employer] Documented by User: Gregory Palacio DO 11/07/23 20:20 HPI - Back Pain/Injury General: Chief Complaint: Back Pain/Injury Stated Complaint: LOW BACK PAIN S/P SURGERY Time Seen by Provider: 11/07/23 16:07 [facility] ED PFSH: Medical History History of drainage of abscess multiple Trauma in childhood Social anxiety disorder Femoral acetabular impingement Bleeding per rectum History of substance abuse Narcotic abuse Surgical History History of liver biopsy 2013 History of colonoscopy 2009 History of facial surgery 2014 No pertinent past surgical history Social History Smoking and tobacco/nicotine status: current every day tobacco/nicotine user cigarettes Packs smoked per day: 1 Years cigarettes smoked: 30 Quit status (tobacco/nicotine): has tried quititng Number of times tried to quit tobacco: 2 Second hand smoke exposure: Yes Alcohol intake: current Substance/Drug Use: current Substance/Drug use frequency: daily Other substance/drug use details: Fentanyl Current gender identity: Male Course Vital Signs: Vital signs: Vital Signs Temperature 97.5 F L 11/08/23 11:54 Pulse Rate 62 11/08/23 11:54 Respiratory Rate 18 11/08/23 11:54 Blood Pressure 117/57 11/08/23 15:36 Pulse Oximetry 97 11/08/23 11:54 Oxygen Delivery Me thod Room Air 11/08/23 11:54 MDM - Back Pain/Injury Medical Decision Making 48-year-old male received in checkout from Dr. Peter. This gentleman has an L2 that shows progressive discitis/osteomyelitis with some bony retropulsion. His white blood cell count is 13. 85% neutrophils. CRP is 11. He essentially has intractable pain. He will be admitted. Will treat empirically with IV antibiotics after blood cultures. Hospitalist will see the patient in the ER. Orthopedic spine has been consulted, and will see the patient in the morning. Labs 11/07/23 18:55 11/07/23 18:55 Radiology Impressions Lumbar Spine CT 11/07/23 16:11 IMPRESSION: Progressive discitis/osteomyelitis of L1-L2 with almost complete collapse of the L2 vertebral body height and bony retropulsion with associated moderate to marked central canal stenosis. The aforementioned findings initiated a critical results communication pathway. An addendum will be issued at the time of clinician notification. ADDENDUM: 11/07/231817 THIS REPORT CONTAINS FINDINGS THAT MAY BE CRITICAL TO PATIENT CARE. The findings were verbally communicated via telephone conference with Dr. Palacio at 6:16 PM [employer] on 11/07/2023. The findings were acknowledged and understood. Lumbar Spine MRI 11/08/23 07:01 IMPRESSION: 1. L1-L2 discitis. 2. Multilevel spinal stenosis and neural foraminal narrowing is detailed above. 3. No disc herniation. 4. Osteomyelitis of the L1, L2, and L3 vertebrae. 5. Moderate L1 compression deformity and severe L 2 compression deformity could be acute or subacute. 6. 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 7. Bilateral L1 and L2 laminectomies. Thoracic Spine MRI 11/08/23 07:01 IMPRESSION: Grossly unremarkable examination. Laboratory Results WBC 12.97 10^3/uL (3.29-11.43) H 11/07/23 18:55 RBC 4.28 10^6/uL (3.85-5.65) 11/07/23 18:55 Hgb 11.00 g/dL (11.27-16.99) L 11/07/23 18:55 Hct 35.2 % (37-53) L 11/07/23 18:55 MCV 82.2 fl (82-101) 11/07/23 18:55 MCH 25.7 pg (27-33) L 11/07/23 18:55 MCHC 31.3 g/dL (30-55) 11/07/23 18:55 RDW 15.2 % (12.1-15.1) H 11/07/23 18:55 Plt Count 246 10^3/cmm (157-399) 11/07/23 18:55 MPV 8.8 fL (7.4-10.4) 11/07/23 18:55 Neut % (Auto) 85.4 % 11/07/23 18:55 Lymph % (Auto) 7.9 % 11/07/23 18:55 Ballard % (Auto) 4.8 % 11/07/23 18:55 Eos % (Auto) 1.2 % 11/07/23 18:55 Baso % (Auto) 0.4 % 11/07/23 18:55 Neut # (Auto) 11.08 10^3/uL (1.8-7.7) H 11/07/23 18:55 Lymph # (Auto) 1.0 10^3/uL (0.8-4.8) 11/07/23 18:55 Ballard # (Auto) 0.6 10^3/uL (0.2-0.9) 11/07/23 18:55 Eos # (Auto) 0.2 10^3/uL (0.0-0.8) 11/07/23 18:55 Baso # (Auto) 0.1 10^3/uL (0.0-0.1) 11/07/23 18:55 Nucleated RBC % (auto) 0 % 11/07/23 18:55 Nucleated RBCs # 0.0 /100WBC 11/07/23 18:55 ESR 51 mm/hr (0-10) H 11/07/23 18:55 Sodium 136 mmol/L (136-145) 11/07/23 18:55 Potassium 4.2 mmol/L (3.5-5.1) 11/07/23 18:55 Chloride 98 mmol/L (98-107) 11/07/23 18:55 Carbon Dioxide 24 mmol/L (22-29) 11/07/23 18:55 Anion Gap 18.2 (5-19) 11/07/23 18:55 BUN 20 mg/dL (6-20) 11/07/23 18:55 Creatinine 1.0 mg/dL (0.7-1.2) 11/07/23 18:55 GFR Calculation 79.4 mL/min (90-130) L 11/07/23 18:55 Glucose 89 mg/dL (65-115) 11/07/23 18:55 Calculated Osmolality 284 mOsm/kg (285-295) L 11/07/23 18:55 Calcium 9.6 mg/dL (8.5-10.5) 11/07/23 18:55 C-Reactive Protein 10.9 mg/L (0.0-4.9) H 11/07/23 18:55 Vitamin B12 552 pg/mL (232-1245) 11/07/23 18:55 TSH 1.99 uIU/mL (0.27-4.20) 11/07/23 18:55 All radiology interpretation(s) finalized by discharge Discharge Plan Discharge Patient Disposition: Admitted As Inpatient Admit Provider: Sierra Ramos Clinical Impression: Intractable back pain, Osteomyelitis of lumbar spine Condition: Stable Coding Level of Care Code ED [employer] for William Chadwick
[2023-11-07] MEDS: ketorolac 60 mg/2 mL INJ IM (17:06)
[2023-11-07] MEDS: orphenadrine 30 mg/mL Inj 2 mL 60 MG IM (17:07)
[2023-11-07 19:07] LABS: Basophils # 0.1 10^3/uL (0.0-0.1); Basophils % 0.4 %; Eosinophils # 0.2 10^3/uL (0.0-0.8); Eosinophils % 1.2 %; Hematocrit 35.2 % (37-53); Lymphocytes % 7.9 %; Mean Corpuscular HGB Conc 31.3 g/dL (30-55); Mean Corpuscular Hemoglobin 25.7 pg (27-33); Mean Corpuscular Volume 82.2 fl (82-101); Mean Platelet Volume 8.8 fL (7.4-10.4); Monocytes # 0.6 10^3/uL (0.2-0.9); Monocytes % 4.8 %; Neutrophils # 11.08 10^3/uL (1.8-7.7); Neutrophils % 85.4 %; Nucleated Red Blood Cells % 0 %; Platelet Count 246 10^3/cmm (157-399); Red Blood Count 4.28 10^6/uL (3.85-5.65); Red Cell Distribution Width 15.2 % (12.1-15.1); White Blood Count 12.97 10^3/uL (3.29-11.43)
[2023-11-07 19:24] LABS: Anion Gap 18.2 (5-19); Blood Urea Nitrogen 20 mg/dL (6-20); C Reactive Protein 10.9 mg/L (0.0-4.9); Calcium 9.6 mg/dL (8.5-10.5); Carbon Dioxide 24 mmol/L (22-29); Chloride 98 mmol/L (98-107); Glomerular Filtration Rate 79.4 mL/min (90-130); Glucose 89 mg/dL (65-115); Osmolality Calculated 284 mOsm/kg (285-295); Potassium 4.2 mmol/L (3.5-5.1); Sodium 136 mmol/L (136-145)
--- NOTE | 2023-11-07 19:28 | P.HP_ITS ---
Providers/Chief Complaint 2 Primary Care Provider: Harjit Kohli DO Chief Complaint: LOW BACK PAIN S/P SURGERY History of Present Illness Joby Jean is a 48 year old male with history of osteomyelitis L2, history of MRSA infection, chronic osteomyelitis lumbar region finished 6 weeks of daptomycin at [facility], finished antibiotic regimen 09/16, history of drug abuse, on methadone for chronic back pain, patient is coming from home because he fell in the bathroom and made his back pain worse. He has not noticed any fever, nausea, vomiting chest pain or shortness of breath. No recent diarrhea. Patient is stating that he was trying to pull his pants when he lost balance fell in the bathroom and hit the top which exacerbated his back pain. He is also complaining of sciatica shooting pain from lower back radiating towards groin and going to his right knee CT scan lumbar region showed progressive osteomyelitis, Dr. Vallejo consulted, I have started him on IV antibiotics, patient is emotionally labile stating that he does not want to because of persistent infection I did reassure him that he will see a surgeon in the morning and he could discuss his surgical options with him but for now we are treating him medically with IV antibiotics He is in the process of appointing a female friend as medical DPOA patient has been disowned by his family because of IV drug abuse history Review of Systems 2 Const: Denies: fever(s) Eyes: Denies: change in vision ENMT: Denies: throat pain Card: Denies: chest pain Resp: Denies: dyspnea GI: Denies: abdominal pain : Denies: flank pain Musc: Reports: back pain; Denies: neck pain Medications/Allergies Home Medications Medication Instructions Recorded Confirmed Last Taken Type clonidine HCl 0.1 mg tablet 0.1 mg PO TID 02/16/23 10/14/23 10/14/23 History TLSO BRACE #1 ea 07/09/23 10/14/23 Unknown Rx cyclobenzaprine 10 mg tablet 10 mg PO TID PRN Muscle Spasm 08/03/23 10/14/23 Unknown History methylphenidate HCl 20 mg tablet 20 mg PO BID 08/03/23 10/14/23 10/14/23 History baclofen 10 mg tablet 10 mg PO BID PRN Pain 10/14/23 10/14/23 Unknown History famotidine 20 mg tablet 20 mg PO BID 10/14/23 10/14/23 Unknown History ibuprofen 600 mg tablet 300 mg PO Q6H PRN Pain 10/14/23 10/14/23 Unknown History lidocaine 5 % topical patch 1 patch topical [id number] 10/14/23 10/14/23 Unknown History lorazepam 1 mg tablet 1 mg PO Q6H PRN Anxiety 10/14/23 10/14/23 Unknown History methadone 10 mg tablet 50 mg PO DAILY 10/14/23 10/14/23 10/14/23 History mirtazapine 15 mg tablet 15 mg PO BEDTIME 10/14/23 10/14/23 10/13/23 History ondansetron 4 mg disintegrating 8 mg PO BID PRN Nausea 10/14/23 10/14/23 Unknown History tablet glecaprevir 100 mg-pibrentasvir 40 3 tab PO DAILY 8 weeks #168 tabs 10/18/23 Unknown Rx mg tablet (Mavyret) gabapentin 300 mg capsule 300 mg PO Q6H 30 days #120 caps 10/30/23 10/14/23 10/14/23 Rx sulfamethoxazole 400 1 tab PO DAILY 30 days #30 tabs 10/30/23 Unknown Rx mg-trimethoprim 80 mg tablet (Bactrim) Allergies Allergy/AdvReac Type Severity Reaction Status Date / Time trazodone Allergy ADR-Nightma Verified 09/29/23 14:18 re haldol Allergy Severe ADR-Anxiety Uncoded 09/29/23 14:18 contrast dye Allergy Mild ADR-Itching Uncoded 09/29/23 14:18 PFSH Acute 2 PFSH: Medical History History of drainage of abscess multiple Trauma in childhood Social anxiety disorder Femoral acetabular impingement Bleeding per rectum History of substance abuse Narcotic abuse Surgical History History of liver biopsy 2013 History of colonoscopy 2009 History of facial surgery 2013 No pertinent past surgical history Social History Smoking and tobacco/nicotine status: current every day tobacco/nicotine user cigarettes Packs smoked per day: 1 Years cigarettes smoked: 30 Quit status (tobacco/nicotine): has tried quititng Number of times tried to quit tobacco: 2 Second hand smoke exposure: Yes Alcohol intake: current Substance/Drug Use: current Substance/Drug use frequency: daily Other substance/drug use details: Fentanyl Current gender identity: Male Vitals/I&O/Wt Last Vital Signs Temp 98.8 F 11/07/23 16:05 Pulse 76 11/07/23 18:39 Resp 18 11/07/23 18:39 BP 160/97 11/07/23 16:13 Pulse Ox 97 11/07/23 18:39 O2 Del Method Room Air 11/07/23 18:39 Weight last 48 hrs Weight 68.039 kg Physical Exam 2 Narrative: Young male Current laying supine No signs of cauda equina Does have sensation medial side of his thighs Has not lost control over his bladder Awake alert GCS 15 Clinically dehydrated Emotional eval S1, S2 Hemodynamic stable Currently on room air No audible stridor or wheezing Caregiver at the bedside Data 11/07/23 18:55 11/07/23 18:55 A&P Assessment and plan (1) Osteomyelitis of lumbar spine: (2) Intractable back pain: (3) Methadone dependence: (4) Hepatitis C: Qualifiers: Viral hepatitis chronicity: chronic Hepatic coma status: without hepatic coma Qualified Code(s): B18.2 - Chronic viral hepatitis C (5) Panic disorder: (6) Cannabis use disorder, severe, dependence: (7) Post-traumatic stress disorder, chronic: (8) Hip pain: Plan Progressive osteomyelitis L2 Recent trauma, patient fell in the bathroom Patient is methadone dependent, He is on 60 mg of methadone I will divide methadone dose to 20 [address] Willett consulted I will start patient on broad-spectrum antibiotics he does have mild leukocytosis Not complaining of fever Patient is stating that whenever he takes Bactrim it causes abdominal pain and vomiting he wants to switch his chronic suppressive therapy he has history of MRSA infection in the past Patient is not sure if he would opt for assisted placement He wants to go home but want to make sure his osteomyelitis is being taken care of, I encouraged him to have detailed discussion with Dr. Lopez in the morning Cardiac diet DVT prophylaxis on hold in case he would require any surgical intervention Continue hepatitis C treatment Patient is clonidine dependent as well for his rebound hypertension, I would continue that as well Attestations 2 Medical Necessity Statement*: More than 2 midnights anticipated Diagnoses Osteomyelitis of lumbar spine M46.26 Intractable back pain M54.9 Methadone dependence F11.20 Chronic hepatitis C without hepatic coma B18.2 Viral hepatitis chronicity: chronic Hepatic coma status: without hepatic coma Panic disorder F41.0 Cannabis use disorder, severe, dependence F12.20 Post-traumatic stress disorder, chronic F43.12 Hip pain M25.559
--- NOTE | 2023-11-07 19:39 | PC.NURSE ---
pt took home meds, zofran, gabapentin, and clonidine and let staff know.
[2023-11-07 21:26] LABS: Erythrocyte Sedimentation Rate 51 mm/hr (0-10)
[2023-11-07 22:08] LABS: Thyroid Stimulating Hormone 1.99 uIU/mL (0.27-4.20); Vitamin B12 552 pg/mL (232-1245)
[2023-11-07] MEDS: ketorolac 30 mg/mL INJ 15 MG IVP (22:14)
[2023-11-07] MEDS: cloNIDine 0.1 mg Tablet PO (22:25)
[2023-11-07] MEDS: mirtazapine 15 mg Tablet PO (22:25)
[2023-11-07] MEDS: gabapentin 300 mg Capsule PO (22:25)
[2023-11-07] MEDS: piperacillin-tazobactam 3.375 GM in sodium chloride 0.9% (plus) 50 ML IV (22:26)
[2023-11-07] MEDS: cyclobenzaprine 10 mg Tablet PO (23:30)
[2023-11-08] VITALS (12 sets, daily range): BP systolic 96–142; BP diastolic 57–88; PULSE 62–83; RESP 17–20; TEMP 36.4–37.1; O2SAT 94–99
[2023-11-08] MEDS: gabapentin 300 mg Capsule PO ×4 (04:03→20:34)
[2023-11-08] MEDS: ondansetron 2 mg/ML SDV 2 mL 4 MG IVP ×2 (04:08→12:31)
[2023-11-08] MEDS: ketorolac 30 mg/mL INJ 15 MG IVP (06:25)
[2023-11-08] MEDS: piperacillin-tazobactam 3.375 GM in sodium chloride 0.9% (plus) 50 ML IV ×3 (06:26→23:10)
--- NOTE | 2023-11-08 06:57 | P.CONIM_ITS ---
Providers/Reason For Consult 2 Consulting Physician/Specialty*: hospitalist Reason for Consult*: Back pain osteomyelitis. Attending Physician: Sierra Ramos MD Primary Care Provider: Harjit Kohli DO History of Present Illness History of Present Illness Joby Jean is a 48 year old male who has a long history of having osteomyelitis. Cultures have been negative. At this point patient continues to have pain and CT scan looks like his vertebrae may be collapsing further. Review of Systems 2 Const: Denies: fever(s) Eyes: Denies: change in vision ENMT: Denies: throat pain Card: Denies: chest pain Resp: Denies: dyspnea GI: Denies: abdominal pain : Denies: flank pain Musc: Reports: back pain; Denies: neck pain Medications/Allergies Home Medications Medication Instructions Recorded Confirmed Last Taken Type clonidine HCl 0.1 mg tablet 0.1 mg PO TID 02/16/23 10/14/23 10/14/23 History TLSO BRACE #1 ea 07/09/23 10/14/23 Unknown Rx cyclobenzaprine 10 mg tablet 10 mg PO TID PRN Muscle Spasm 08/03/23 10/14/23 Unknown History methylphenidate HCl 20 mg tablet 20 mg PO BID 08/03/23 10/14/23 10/14/23 History baclofen 10 mg tablet 10 mg PO BID PRN Pain 10/14/23 10/14/23 Unknown History famotidine 20 mg tablet 20 mg PO BID 10/14/23 10/14/23 Unknown History ibuprofen 600 mg tablet 300 mg PO Q6H PRN Pain 10/14/23 10/14/23 Unknown History lidocaine 5 % topical patch 1 patch topical [id number] 10/14/23 10/14/23 Unknown History lorazepam 1 mg tablet 1 mg PO Q6H PRN Anxiety 10/14/23 10/14/23 Unknown History methadone 10 mg tablet 50 mg PO DAILY 10/14/23 10/14/23 10/14/23 History mirtazapine 15 mg tablet 15 mg PO BEDTIME 10/14/23 10/14/23 10/13/23 History ondansetron 4 mg disintegrating 8 mg PO BID PRN Nausea 10/14/23 10/14/23 Unknown History tablet glecaprevir 100 mg-pibrentasvir 40 3 tab PO DAILY 8 weeks #168 tabs 10/18/23 Unknown Rx mg tablet (Mavyret) gabapentin 300 mg capsule 300 mg PO Q6H 30 days #120 caps 10/30/23 10/14/23 10/14/23 Rx sulfamethoxazole 400 1 tab PO DAILY 30 days #30 tabs 10/30/23 Unknown Rx mg-trimethoprim 80 mg tablet (Bactrim) Allergies Allergy/AdvReac Type Severity Reaction Status Date / Time trazodone Allergy ADR-Nightma Verified 09/29/23 14:18 re haldol Allergy Severe ADR-Anxiety Uncoded 09/29/23 14:18 contrast dye Allergy Mild ADR-Itching Uncoded 09/29/23 14:18 Current Medications Generic Name Dose Route Start Last Admin Trade Name Freq PRN Reason Stop Dose Admin Clonidine HCl 0.1 mg 11/07/23 21:06 11/07/23 22:25 Clonidine 0.1 Mg Tablet PO 0.1 mg TID AARTI Administration Cyclobenzaprine HCl 10 mg 11/07/23 21:06 11/07/23 23:30 Cyclobenzaprine 10 Mg Tablet PO 10 mg TID PRN Administration Muscle Spasm Gabapentin 300 mg 11/07/23 21:06 11/08/23 04:03 Gabapentin 300 Mg Capsule PO 300 mg Q6H AARTI Administration Piperacillin Sod/Tazobactam 50 mls @ 12.5 mls/hr 11/07/23 22:15 11/08/23 06:26 Sod 3.375 gm/ Sodium Chloride IV 12.5 mls/hr Q8H AARTI Administration Mirtazapine 15 mg 11/07/23 21:06 11/07/23 22:25 Mirtazapine 15 Mg Tablet PO 15 mg BEDTIME AARTI Administration Ondansetron HCl 4 mg 11/07/23 21:06 11/08/23 04:08 Ondansetron 2 Mg/Ml Sdv 2 Ml IVP 4 mg Q6H PRN Administration NAUSEA AND VOMITING PFSH Acute 2 PFSH: Medical History History of drainage of abscess multiple Trauma in childhood Social anxiety disorder Femoral acetabular impingement Bleeding per rectum History of substance abuse Narcotic abuse Surgical History History of liver biopsy 2013 History of colonoscopy 2009 History of facial surgery 2013 No pertinent past surgical history Social History Smoking and tobacco/nicotine status: current every day tobacco/nicotine user cigarettes Packs smoked per day: 1 Years cigarettes smoked: 30 Quit status (tobacco/nicotine): has tried quititng Number of times tried to quit tobacco: 2 Second hand smoke exposure: Yes Alcohol intake: current Substance/Drug Use: current Substance/Drug use frequency: daily Other substance/drug use details: Fentanyl Current gender identity: Male Vitals/I&O/Wt Last Vital Signs Temp 98.7 F 11/08/23 05:12 Pulse 76 11/08/23 05:12 Resp 18 11/08/23 05:12 BP 142/84 11/08/23 05:12 Pulse Ox 97 11/08/23 05:12 O2 Del Method Room Air 11/07/23 22:50 11/07/23 11/07/23 11/08/23 14:59 22:59 06:59 Intake Total 530 / 530 Balance 530 / 530 Weight last 48 hrs Weight 150 lb Weight 150 lb Physical Exam 2 Narrative: 5 5 strength in bilateral extremities se nsations intact. Patient is lying in bed no pain seems to be relatively controlled. Except when he moves. Data 11/07/23 18:55 11/07/23 18:55 Micro: Microbiology 11/07/23 22:15 Blood Culture - Preliminary Blood SPECIMEN COLLECTED 11/07/23 22:15 Blood Culture - Preliminary Blood SPECIMEN COLLECTED A&P Assessment and plan (1) Osteomyelitis of lumbar spine: Patient continues to have pain CT looks like worsening collapse of the L1-2 level. Will obtain MRI of lumbar and thoracic spine. Patient may need a fusion to prevent further collapse. Will determine after the MRI. Consult Attestations 2 Medical Necessity Statement: Pain control Coding Level of Care Code Acute Code for [facility] Fwd Diagnoses Osteomyelitis of lumbar spine M46.26
--- NOTE | 2023-11-08 07:01 | MRR_ITS ---
PROCEDURE INFORMATION: Exam: MR Thoracic Spine Without Contrast Exam date and time: 11/08/2023 2:22 PM Age: 48 years old Clinical indication: Pain in thoracic spine; Without myelpathy or radiculopathy; Additional info: Osteomylitis TECHNIQUE: Imaging protocol: Magnetic resonance imaging of the thoracic spine without contrast. COMPARISON: MR lumbar spine wo con* [id number] 11/08/2023 1:48 PM FINDINGS: Limitations: Study is suboptimal due to excessive motion artifact. Study is suboptimal due to excessive motion artifact. Bones/joints: Grossly unremarkable. No fracture. Normal alignment. Spinal cord: Grossly unremarkable. Normal obviously abnormal signal. No cord compression. T1-T2: Grossly unremarkable. No significant disc bulge or herniation. No severe spinal canal stenosis. No significant neural foraminal narrowing. T2-T3: Grossly unremarkable. No significant disc bulge or herniation. No severe spinal canal stenosis. No significant neural foraminal narrowing. T3-T4: Grossly unremarkable. No significant disc bulge or herniation. No severe spinal canal stenosis. No significant neural foraminal narrowing. T4-T5: Grossly unremarkable. No significant disc bulge or herniation. No severe spinal canal stenosis. No significant neural foraminal narrowing. T5-T6: Grossly unremarkable. No significant disc bulge or herniation. No severe spinal canal stenosis. No significant neural foraminal narrowing. T6-T7: Grossly unremarkable. No significant disc bulge or herniation. No severe spinal canal stenosis. No significant neural foraminal narrowing. T7-T8: Grossly unremarkable. No significant disc bulge or herniation. No severe spinal canal stenosis. No significant neural foraminal narrowing. T8-T9: Grossly unremarkable. No significant disc bulge or herniation. No severe spinal canal stenosis. No significant neural foraminal narrowing. T9-T10: Grossly unremarkable. No significant disc bulge or herniation. No severe spinal canal stenosis. No significant neural foraminal narrowing. T10-T11: Grossly unremarkable. No significant disc bulge or herniation. No severe spinal canal stenosis. No significant neural foraminal narrowing. T11-T12: Grossly unremarkable. No significant disc bulge or herniation. No severe spinal canal stenosis. No significant neural foraminal narrowing. T12-L1: Grossly unremarkable. No significant disc bulge or herniation. No severe spinal canal stenosis. No significant neural foraminal narrowing. Soft tissues: Grossly unremarkable. MR/MR thoracic spin wo con* [id number] IMPRESSION: Grossly unremarkable examination.
--- NOTE | 2023-11-08 07:01 | MRR_ITS ---
PROCEDURE INFORMATION: Exam: MR Lumbar Spine Without Contrast Exam date and time: 11/08/2023 1:48 PM Age: 48 years old Clinical indication: Low back pain; Prior surgery; Surgery date: <1 month; Surgery type: Lumbar; Additional info: Osteomyeltis TECHNIQUE: Imaging protocol: Magnetic resonance imaging of the lumbar spine without contrast. COMPARISON: CT lumbar spine wo con* [id number] 11/07/2023 5:21 PM FINDINGS: Bones/joints: Moderate compression deformity of the L1 vertebral body. Severe compression deformity of the L2 vertebral body. Abnormal low signal in these 2 vertebral bodies on the T2 and T1 spin echo sequences, but with high signal abnormality on the STIR sequences. This may all be due to osteomyelitis, but this could indicate that these compression deformities are acute or subacute. There is fairly diffuse high signal abnormality throughout the non-compressed L3 vertebral body. This is most suggestive of osteomyelitis. These deformities caused mild kyphosis and mild scoliosis. No other fractures. No other areas of suspected osteomyelitis. Bilateral L1 and L2 laminectomies. Spinal cord: Tip of the conus medullaris is at the L1 level. The conus medullaris is unremarkable. There is some clumping of the cauda equina structures which could be arachnoiditis. L1-L2: Discitis with near-complete obliteration of the disc space. Large osteophytes extending 11 mm posteriorly. No obvious disc herniation. No facet osteoarthritis. Mild spinal stenosis. Moderate bilateral neural foraminal narrowing. L2-L3: . Normal disc. No spinal stenosis. No significant neural foraminal narrowing. No facet osteoarthritis. L3-L4: Mild degenerative disc disease with diffuse disc bulge. No disc herniation. No facet osteoarthritis. No spinal stenosis. Mild bilateral neural foraminal narrowing. L4-L5: No significant disc bulge or herniation. No spinal canal stenosis. No significant neural foraminal narrowing. L5-S1: No significant disc bulge or herniation. No spinal canal stenosis. No significant neural foraminal narrowing. Soft tissues: Otherwise, unremarkable. MR/MR lumbar spine wo con* [id number] IMPRESSION: 1. L1-L2 discitis. 2. Multilevel spinal stenosis and neural foraminal narrowing is detailed above. 3. No disc herniation. 4. Osteomyelitis of the L1, L2, and L3 vertebrae. 5. Moderate L1 compression deformity and severe L 2 compression deformity could be acute or subacute. 6. 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 7. Bilateral L1 and L2 laminectomies.
[2023-11-08] MEDS: vancomycin 1,000 MG in sodium chloride 0.9% 250 ML 250 MG IV ×2 (07:45→19:49)
[2023-11-08] MEDS: cyclobenzaprine 10 mg Tablet PO ×2 (07:56→21:07)
[2023-11-08] MEDS: methadone 10 mg Tablet 20 MG PO (07:56)
[2023-11-08] MEDS: sennosides-docusate Tablet 2 TAB PO ×2 (07:59→18:32)
[2023-11-08] MEDS: cloNIDine 0.1 mg Tablet PO ×3 (07:59→20:34)
--- NOTE | 2023-11-08 10:24 | PC.PHAR ---
PT STATES METHADONE IS NOW 60 MG DAILY
[2023-11-08] MEDS: methylphenidate 10 mg Tablet 20 MG PO ×2 (12:30→20:37)
[2023-11-08] MEDS: ketorolac 30 mg/mL INJ IVP ×2 (12:31→21:04)
--- NOTE | 2023-11-08 14:42 | P.PN_ITS ---
Subjective 2 Subjective: Having some muscle spasms in his back. Vitals/I&O/Wt Last Vital Signs Temp 97.5 F L 11/08/23 11:54 Pulse 62 11/08/23 11:54 Resp 18 11/08/23 11:54 BP 117/57 11/08/23 11:54 Pulse Ox 97 11/08/23 11:54 O2 Del Method Room Air 11/08/23 11:54 11/07/23 11/08/23 11/08/23 22:59 06:59 14:59 Intake Total 530 / 530 780 / 780 Balance 530 / 530 780 / 780 Weight last 48 hrs Weight 68.039 kg Weight 68.039 kg Physical Exam 2 Const: COMMON NORMALS: patient oriented x3 and alert GENERAL APPEARANCE: c ooperative ORIENTATION/CONSCIOUSNESS: Yes awake HENMT: COMMON NORMALS: oropharynx normal Resp: COMMON NORMALS: normal respiratory effort and clear to auscultation bilaterally AUSCULTATION: clear to auscultation bilaterally Cardio: COMMON NORMALS: regular rhythm, S1 normal heart sound present, S2 normal heart sound present and No murmurs present (Cardio) RHYTHM: regular rhythm HEART SOUNDS: S1 normal heart sound present and S2 normal heart sound present GI: COMMON NORMALS: Normal to inspection, nondistended, normoactive bowel sounds present, Soft to palpation and non-tender PALPATION: Yes Soft to palpation Extremity: COMMON NORMALS: no joint enlargement and no pedal edema Neuro: COMMON NORMALS: patient oriented x3 and moves all extremities S ENSORIUM/ORIENTATION: Yes alert Data 11/07/23 18:55 11/07/23 18:55 Micro: Microbiology 11/07/23 22:15 Blood Culture - Preliminary Blood SPECIMEN COLLECTED 11/07/23 22:15 Blood Culture - Preliminary Blood SPECIMEN COLLECTED A&P Assessment and plan (1) Osteomyelitis of lumbar spine: (2) Intractable back pain: (3) Methadone dependence: (4) Hepatitis C: Qualifiers: Viral hepatitis chronicity: chronic Hepatic coma status: without hepatic coma Qualified Code(s): B18.2 - Chronic viral hepatitis C (5) Panic disorder: (6) Cannabis use disorder, severe, dependence: (7) Post-traumatic stress disorder, chronic: (8) Hip pain: Plan Progressive osteomyelitis L2: Noted worsened loss of height of L2, orthopedic consultation, documentation reviewed. Discussed with patient he has planned for MRI of his back for additional assessment. He has been receiving treatment for L2 osteomyelitis with history of MRSA infection. However, with progressive loss of height, pain has also come to worsening disability, functional decline, pain. Very difficult situation. Certainly with surgical intervention hardware implantation would be at risk of MRSA infection, likely needing lifelong antibiotic suppression. Continue to treatment of osteomyelitis and attempted eradication of infection prior to surgical intervention would help reduce chance of MRSA reinfection, surgical/hardware failure, other complications and/or need for lifelong antibiotic suppression with potential adverse effects, while on the other hand understandable concern by overnight physician for risking progression of functional decline, bedbound status, nerve injury/spinal cord injury with vertebral collapse with bony retropulsion, moderate to marked central canal stenosis, progressive deconditioning, associated comorbidities, pneumonia, pressure ulcers, etc. Discussed with patient. Pending additional assessment by MRI. Tomorrow if available please consult with infectious disease for assistance in this difficult case and to help him make decisions regarding choice of management. Discussed with orthopedic surgeon. Continue vancomycin, for now empirically on Zosyn as well, continue. At risk of renal injury with combination, reassess renal function. He additionally requests for Toradol which has worked well for him for pain adding to the risk. Follow-up chemistry requested. He is on methadone at home, will need to confirm dose with methadone clinic when opens on Thursday. Patient is not sure if he would opt for halfway placement. Case management consultation. He wants to go home but want to make sure his osteomyelitis is being taken care of. He is agreeable to proceed with assessment by MRI, continue IV antibiotics. Cardiac diet DVT prophylaxis on hold in case he would require any surgical intervention Continue follow-up for hepatitis C Patient takes Coumadin but blood pressure was soft on presentation, so far has not been resumed yet. Monitor for rebound hypertension. Attestations 2 Medical Necessity Statement*: Continue admission for assessment management of worsened osteomyelitis, loss of L2 vertebral height and bony retropulsion with moderate to marked central canal stenosis, IV antibiotic, consideration of further options, consideration of surgical management and timing of such. Diagnoses Osteomyelitis of lumbar spine M46.26 Intractable back pain M54.9 Methadone dependence F11.20 Chronic hepatitis C without hepatic coma B18.2 Viral hepatitis chronicity: chronic Hepatic coma status: without hepatic coma Panic disorder F41.0 Cannabis use disorder, severe, dependence F12.20 Post-traumatic stress disorder, chronic F43.12 Hip pain M25.559
[2023-11-08] MEDS: mirtazapine 15 mg Tablet PO (20:34)
[2023-11-09] MEDS: gabapentin 300 mg Capsule PO ×2 (03:16→07:56)
[2023-11-09 04:00] VITALS: BP 120/72; PULSE 77; RESP 17; TEMP 37.2; O2SAT 99
[2023-11-09] MEDS: ketorolac 30 mg/mL INJ IVP (04:51)
[2023-11-09] MEDS: ondansetron 2 mg/ML SDV 2 mL 4 MG IVP (04:53)
[2023-11-09 05:39] VITALS: BMI 23.8
[2023-11-09] MEDS: piperacillin-tazobactam 3.375 GM in sodium chloride 0.9% (plus) 50 ML IV (06:24)
[2023-11-09 07:44] VITALS: BP 118/70; PULSE 76; RESP 19; TEMP 36.4; O2SAT 95
[2023-11-09] MEDS: vancomycin 1,000 MG in sodium chloride 0.9% 250 ML 250 MG IV (07:50)
[2023-11-09] MEDS: methylphenidate 10 mg Tablet 20 MG PO (07:54)
[2023-11-09 07:55] VITALS: BP 118/70
[2023-11-09] MEDS: cloNIDine 0.1 mg Tablet PO (07:55)
[2023-11-09] MEDS: sennosides-docusate Tablet 2 TAB PO (07:55)
[2023-11-09 08:02] VITALS: RESP 18
[2023-11-09] MEDS: methadone 10 mg Tablet 20 MG PO (08:02)
--- NOTE | 2023-11-09 08:50 | PM.PN ---
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: Discussed at length with the patient this morning his condition which involves collapse of L2 slightly L3. He does report a fall off of the toilet trying to pull his pants up while at home. Pain has intensified since that fall. Denies any loss of bowel or bladder control. Vitals/I&O/Wt Last Vital Signs Temp 97.5 F L 11/09/23 07:44 Pulse 76 11/09/23 07:44 Resp 18 11/09/23 08:02 BP 118/70 11/09/23 07:55 Pulse Ox 95 11/09/23 07:44 O2 Del Method Room Air 11/09/23 07:44 11/08/23 11/09/23 11/09/23 22:59 06:59 14:59 Intake Total 660 / 1440 50 / 1490 240 / 240 Balance 660 / 1440 50 / 1490 240 / 240 Weight last 48 hrs Weight 176 lb Weight 150 lb Weight 150 lb Physical Exam Narrative: Patient presents alert and oriented x3 with a good general appearance normal mood and affect. Normal coordination normal stability. Mild tenderness around the incisional site with the incision appear to be healing nicely. No signs of erythema or drainage. No signs of infection. Patient denies any fevers or chills. 4/5 motor strength both lower extremities with negative straight leg raise bilaterally. Calves are supple no medial thigh tenderness. Pulses are 2+ at the dorsalis pedis and posterior tibial region. Good capillary refill throughout normal sensation light touch both lower extremities. HENMT: COMMON NORMALS: normocephalic and atraumatic HEAD & SCALP: normocephalic and atraumatic Resp: COMMON NORMALS: normal respiratory effort Cardio: COMMON NORMALS: regular rate and regular rhythm RATE: regular rate RHYTHM: regular rhythm GI: COMMON NORMALS: Soft to palpation and non-tender PALPATION: Yes Soft to palpation : COMMON NORMALS: Yes no CVA tenderness BLADDER/KIDNEY EXAM: Yes no CVA tenderness Back/Pelvis: COMMON NORMALS: no CVA tenderness Psych: COMMON NORMALS: mental status grossly normal and cooperative Data 11/07/23 18:55 11/07/23 18:55 Micro: Microbiology 11/07/23 22:15 Blood Culture - Preliminary Blood NEGATIVE TO DATE 11/07/23 22:15 Blood Culture - Preliminary Blood NEGATIVE TO DATE MRI: Radiologist's impression: MR/MR lumbar spine wo con* [id number] IMPRESSION: 1. L1-L2 discitis. 2. Multilevel spinal stenosis and neural foraminal narrowing is detailed above. 3. No disc herniation. 4. Osteomyelitis of the L1, L2, and L3 vertebrae. 5. Moderate L1 compression deformity and severe L 2 compression deformity could be acute or subacute. 6. 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 7. Bilateral L1 and L2 laminectomies. A&P Assessment and plan (1) Osteomyelitis of lumbar spine: At this point I discussed with the patient to the operative procedure which will involve a lumbar fusion. Discussed the complications and risks associated with that due to his history of osteomyelitis. Unfortunately Dr. Lopez had a family emergency and therefore we will not be able to perform the procedure this week. Patient has a TLSO brace and encouraged him to wear that at all times when he is out of bed or up in a chair. Discussed him following up in the office in 1 weeks time for scheduling this surgical procedure outpatient. He is under consultation with infectious disease and the hospitalist team. Encouraged him to continue SCDs for DVT prophylaxis. Continue incentive spirometry for pulmonary toilet. More than 50% of the time spent with the patient today involved coordination of care, counseling and discussion of conservative versus surgical treatment options. Total amount of time spent with the patient was 25 minutes. (2) Intractable back pain: (3) Status post lumbar laminectomy: Attestations Medical Necessity Statement*: Defer to medical team Coding Level of Care Code Acute Code for [facility] Fwd Diagnoses Osteomyelitis of lumbar spine M46.26 Intractable back pain M54.9 Status post lumbar laminectomy Z98.890 Time Spent (min) 25
[2023-11-09 09:40] VITALS: PULSE 80; RESP 15; O2SAT 93
--- NOTE | 2023-11-09 10:23 | P.DS_ITS ---
Discharge Providers 2 Date of Admission: 11/07/23 19:29 Date of Discharge: November 09, 2023 Attending Provider at Admission: Sierra Ramos MD Attending Provider at Discharge: Jordan Wilder MD Primary Care Provider: Harjit Kohli DO Diagnoses at Discharge Discharge Diagnosis (1) Osteomyelitis of lumbar spine: Status: Acute (2) Intractable back pain: Status: Acute (3) Status post lumbar laminectomy: Status: Acute Reason for Visit 2 Reason for Visit: LOW BACK PAIN S/P SURGERY Brief History: History as per HPI: Joby Jean is a 48 year old male with history of osteomyelitis L2, history of MRSA infection, chronic osteomyelitis lumbar region finished 6 weeks of daptomycin at [facility], finished antibiotic regimen 09/16, history of drug abuse, on methadone for chronic back pain, patient is coming from home because he fell in the bathroom and made his back pain worse. He has not noticed any fever, nausea, vomiting chest pain or shortness of breath. No recent diarrhea. Patient is stating that he was trying to pull his pants when he lost balance fell in the bathroom and hit the top which exacerbated his back pain. He is also complaining of sciatica shooting pain from lower back radiating towards groin and going to his right knee CT scan lumbar region showed progressive osteomyelitis, Dr. Vallejo consulted, I have started him on IV antibiotics, patient is emotionally labile stating that he does not want to because of persistent infection I did reassure him that he will see a surgeon in the morning and he could discuss his surgical options with him but for now we are treating him medically with IV antibiotics He is in the process of appointing a female friend as medical DPOA patient has been disowned by his family because of IV drug abuse history Hospital Course Hospital Course Patient was admitted to the hospital for further evaluation and management of worsening back pain. On admission CT spine was done which was concerning for further vertebral destruction and worsening of collapse of the L1-L2 level. Orthopedic surgery was consulted and MRI was obtained. Orthopedic surgery recommended patient to undergo operative procedure which will also involve lumbar fusion. Unfortunately Dr. Lopez had a family emergency and therefore will not be available to do the procedure for 1 week and patient was advised to follow-up as an outpatient. Patient is agreeable. Blood cultures during hospitalization remain negative and patient remained afebrile. On further discussion patient has not been taking his oral Bactrim regularly because of concerns for nausea. He is also not been taking his medications for hepatitis C. Patient was advised in detail to continue taking Bactrim and Mavyret going forward. He is advised to take Zofran 3 times a day. Pain medications, need for compliance with oral antibiotics and antihepatitis C medications were discussed in detail with patient and patient's spouse at bedside. All the questions were answered. Patient will follow-up with his primary care provider within next 1 week for further continuation of pain medications and with Dr. Lopez for scheduling of outpatient corrective spinal surgery. Physical Exam 2 Const: COMMON NORMALS: patient oriented x3 and alert GENERAL APPEARANCE: c ooperative ORIENTATION/CONSCIOUSNESS: Yes awake HENMT: COMMON NORMALS: oropharynx normal Resp: COMMON NORMALS: normal respiratory effort and clear to auscultation bilaterally AUSCULTATION: clear to auscultation bilaterally Cardio: COMMON NORMALS: regular rhythm, S1 normal heart sound present, S2 normal heart sound present and No murmurs present (Cardio) RHYTHM: regular rhythm HEART SOUNDS: S1 normal heart sound present and S2 normal heart sound present GI: COMMON NORMALS: Normal to inspection, nondistended, normoactive bowel sounds present, Soft to palpation and non-tender PALPATION: Yes Soft to palpation Back/Pelvis: OTHER: Extremity: COMMON NORMALS: no joint enlargement and no pedal edema Neuro: COMMON NORMALS: patient oriented x3 and moves all extremities S ENSORIUM/ORIENTATION: Yes alert Discharge Data Studies Completed and Pending Completed Studies During Hospitalization Category Date Time Status CT lumbar spine wo con* [id number] Stat Cat Scan 11/07/23 16:11 Completed MR lumbar spine wo con* [id number] Routine MRI 11/08/23 07:01 Completed MR thoracic spin wo con* [id number] Routine MRI 11/08/23 07:01 Completed Pending at discharge Category Date Time Status Blood Culture Stat Lab 11/07/23 22:15 Results Radiology Impressions Lumbar Spine CT 11/07/23 16:11 IMPRESSION: Progressive discitis/osteomyelitis of L1-L2 with almost complete collapse of the L2 vertebral body height and bony retropulsion with associated moderate to marked central canal stenosis. The aforementioned findings initiated a critical results communication pathway. An addendum will be issued at the time of clinician notification. ADDENDUM: 11/07/23 [id number] THIS REPORT CONTAINS FINDINGS THAT MAY BE CRITICAL TO PATIENT CARE. The findings were verbally communicated via telephone conference with Dr. Palacio at 6:16 PM NON DESTRUCTIVE TESTING SCIENTIST on 11/07/2023. The findings were acknowledged and understood. Lumbar Spine MRI 11/08/23 07:01 IMPRESSION: 1. L1-L2 discitis. 2. Multilevel spinal stenosis and neural foraminal narrowing is detailed above. 3. No disc herniation. 4. Osteomyelitis of the L1, L2, and L3 vertebrae. 5. Moderate L1 compression deformity and severe L 2 compression deformity could be acute or subacute. 6. 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 7. Bilateral L1 and L2 laminectomies. Thoracic Spine MRI 11/08/23 07:01 IMPRESSION: Grossly unremarkable examination. Laboratory Results WBC 12.97 10^3/uL (3.29-11.43) H 11/07/23 18:55 RBC 4.28 10^6/uL (3.85-5.65) 11/07/23 18:55 Hgb 11.00 g/dL (11.27-16.99) L 11/07/23 18:55 Hct 35.2 % (37-53) L 11/07/23 18:55 MCV 82.2 fl (82-101) 11/07/23 18:55 MCH 25.7 pg (27-33) L 11/07/23 18:55 MCHC 31.3 g/dL (30-55) 11/07/23 18:55 RDW 15.2 % (12.1-15.1) H 11/07/23 18:55 Plt Count 246 10^3/cmm (157-399) 11/07/23 18:55 MPV 8.8 fL (7.4-10.4) 11/07/23 18:55 Neut % (Auto) 85.4 % 11/07/23 18:55 Lymph % (Auto) 7.9 % 11/07/23 18:55 Stephenson % (Auto) 4.8 % 11/07/23 18:55 Eos % (Auto) 1.2 % 11/07/23 18:55 Baso % (Auto) 0.4 % 11/07/23 18:55 Neut # (Auto) 11.08 10^3/uL (1.8-7.7) H 11/07/23 18:55 Lymph # (Auto) 1.0 10^3/uL (0.8-4.8) 11/07/23 18:55 Stephenson # (Auto) 0.6 10^3/uL (0.2-0.9) 11/07/23 18:55 Eos # (Auto) 0.2 10^3/uL (0.0-0.8) 11/07/23 18:55 Baso # (Auto) 0.1 10^3/uL (0.0-0.1) 11/07/23 18:55 Nucleated RBC % (auto) 0 % 11/07/23 18:55 Nucleated RBCs # 0.0 /100WBC 11/07/23 18:55 ESR 51 mm/hr (0-10) H 11/07/23 18:55 Sodium 136 mmol/L (136-145) 11/07/23 18:55 Potassium 4.2 mmol/L (3.5-5.1) 11/07/23 18:55 Chloride 98 mmol/L (98-107) 11/07/23 18:55 Carbon Dioxide 24 mmol/L (22-29) 11/07/23 18:55 Anion Gap 18.2 (5-19) 11/07/23 18:55 BUN 20 mg/dL (6-20) 11/07/23 18:55 Creatinine 1.0 mg/dL (0.7-1.2) 11/07/23 18:55 GFR Calculation 79.4 mL/min (90-130) L 11/07/23 18:55 Glucose 89 mg/dL (65-115) 11/07/23 18:55 Calculated Osmolality 284 mOsm/kg (285-295) L 11/07/23 18:55 Calcium 9.6 mg/dL (8.5-10.5) 11/07/23 18:55 C-Reactive Protein 10.9 mg/L (0.0-4.9) H 11/07/23 18:55 Vitamin B12 552 pg/mL (232-1245) 11/07/23 18:55 TSH 1.99 uIU/mL (0.27-4.20) 11/07/23 18:55 Vitals Last Vital Signs Temp 97.5 F L 11/09/23 07:44 Pulse 80 11/09/23 09:40 Resp 15 11/09/23 09:40 BP 118/70 11/09/23 07:55 Pulse Ox 93 11/09/23 09:40 O2 Del Method Room Air 11/09/23 09:40 Discharge Plan Discharge Patient Disposition: Home Condition: Stable Prescriptions: New hydrocodone-acetaminophen 7.5-300 mg tablet 1 tab PO Q8H PRN (Reason: pain) Qty: 20 0RF Continued clonidine HCl 0.1 mg tablet 0.1 mg PO TID (DME) TLSO BRACE See Rx Instructions .Route .MEDSUPPLY Qty: 1 0RF Rx Instructions: As directed cyclobenzaprine 10 mg tablet 10 mg PO TID PRN (Reason: Muscle Spasm) methylphenidate HCl 20 mg tablet 20 mg PO BID methadone 10 mg Tablet 60 mg PO DAILY famotidine 20 mg tablet 20 mg PO BID mirtazapine 15 mg tablet 15 mg PO BEDTIME lorazepam 1 mg tablet 1 mg PO Q6H PRN (Reason: Anxiety) baclofen 10 mg tablet 10 mg PO BID PRN (Reason: Pain) gabapentin 300 mg capsule 300 mg PO Q6H 30 Days Qty: 120 0RF Changed ondansetron 4 mg tablet,disintegrating 8 mg PO BID 30 Days Qty: 120 0RF Discharge Orders: Discharge Order (Routine); Ordered 11/09/23 Ordered By: Jordan Wilder Referrals: Jacob Lopez DO [Physician] - 11/12/23 10:45 am Harjit Kohli DO [Primary Care Provider] - 11/12/23 (We have notified your physician's clinic of the need for a follow-up appointment to be scheduled. If you have not heard from them within the next 2 business days, please call them directly. CALL DR OFFICE FOR TIME) Discharge Diet: Regular Discharge Activity: Resume usual activity and Increase activity as tolerated Patient Instructions: Hydrocodone/Acetaminophen (By mouth), Osteomyelitis (GEN), Opioid Safety Discharge Attestations 2 Time Spent in Discharge Care*: greater than 30 min Quality Metrics Clinical Quality Measures [ No reported AMI, CVA or VTE this stay] Coding Level of Care Code 36876 Total time (in minutes) for Discharge: 60 Diagnoses Osteomyelitis of lumbar spine M46.26 Intractable back pain M54.9 Status post lumbar laminectomy Z98.890
[2023-11-09 11:55] VITALS: PULSE 80; RESP 15; O2SAT 93
== END 2023-11-09 11:56 | disposition home or self-care (01) | DRG 540 ==
LOC: ER 18:22 → MEDSURG 19:52
PROVIDERS: Family Medicine; Admitting Provider Internal Medicine; Emergency Provider Emergency Medicine; PCP Electrodiagnostic Medicine; Visit Provider Student in an Organized Health Care Education/Training Program
DX: M46.26 Osteomyelitis of vertebra, lumbar region (principal); F11.20 Opioid dependence, uncomplicated; M46.46 Discitis, unspecified, lumbar region; F40.10 Social phobia, unspecified; F17.210 Nicotine dependence, cigarettes, uncomplicated; G89.29 Other chronic pain; Z86.14 Personal history of Methicillin resistant Staphylococcus aureus infection; B18.2 Chronic viral hepatitis C; F41.0 Panic disorder [episodic paroxysmal anxiety]; F12.20 Cannabis dependence, uncomplicated; F43.12 Post-traumatic stress disorder, chronic; I10 Essential (primary) hypertension; M25.559 Pain in unspecified hip; Z98.890 Other specified postprocedural states; Z79.2 Long term (current) use of antibiotics
CPT/HCPCS: 36415; 72131; 72146; 72148; 80048; 82607; 84443; 85025; 85651; 86140; 87040; 96372; 99285; J1885; J2360; J2405; J2543; J3370; J7050

== ENCOUNTER → 2023-12-08 08:57 | Outpatient (BNVA) | payer MEDICAID, SELFPAY | PROVIDERS: PCP Electrodiagnostic Medicine; Visit Provider Orthopaedic Surgery | DX: M46.26 Osteomyelitis of vertebra, lumbar region (principal); Z01.812 Encounter for preprocedural laboratory examination; M48.56XA Collapsed vertebra, not elsewhere classified, lumbar region, initial encounter for fracture | CPT/HCPCS: 36415; 72100; 80053; 81001; 83036; 85025; 86140; 87522 ==

== ENCOUNTER → 2023-12-09 10:57 | Outpatient (BNVA) | payer MEDICAID, SELFPAY | PROVIDERS: PCP Electrodiagnostic Medicine; Visit Provider Family Medicine | DX: Z01.818 Encounter for other preprocedural examination (principal) | CPT/HCPCS: 81003 ==

== ENCOUNTER 2023-12-15 20:54 | Emergency (ER) | payer MEDICAID, SELFPAY ==
[2023-12-15 20:56] VITALS: BP 114/69; PULSE 89; RESP 18; TEMP 37.1; O2SAT 95; BMI 23.8
--- NOTE | 2023-12-15 21:24 | W.ED.BACK ---
HPI - Back Pain/Injury General: Chief Complaint: Back Pain/Injury Stated Complaint: back pain Time Seen by Provider: 12/15/23 20:56 History of Present Illness: Patient presents to the ER with complaints of worsening back pain secondary to fall 3 days ago. Patient rates it a 10 out of 10 currently. Patient does go to the urgent care and had x-rays that he said they just showed inflammation. Patient does have a bad back and sees Dr. Sandoval. He has a history of osteomyelitis of the spine. He is not getting ready to undergo another surgery by Dr. Lopez. Patient is currently on [place], methadone, gabapentin, baclofen, this usually controls the pain very decent but is not controlling it at all right now. Patient states is worse when he moves or stands. Review of Systems General: Reports: 10 or more systems reviewed and unremarkable except in HPI and below PFSH ED PFSH: Medical History History of drainage of abscess multiple Trauma in childhood Social anxiety disorder Femoral acetabular impingement Bleeding per rectum History of substance abuse Narcotic abuse Surgical History History of liver biopsy 2013 History of colonoscopy 2009 History of facial surgery 2014 No pertinent past surgical history Social History Smoking and tobacco/nicotine status: current every day tobacco/nicotine user cigarettes Packs smoked per day: 1 Years cigarettes smoked: 30 Quit status (tobacco/nicotine): has tried quititng Number of times tried to quit tobacco: 2 Second hand smoke exposure: Yes Alcohol intake: current Substance/Drug Use: current Substance/Drug use frequency: daily Other substance/drug use details: Fentanyl Current gender identity: Male Physical Exam Const: COMMON NORMALS: average body habitus, patient oriented x3, no limitations, healthy appearing, alert and well nourished HENMT: COMMON NORMALS: normocephalic, atraumatic, hearing grossly normal bilaterally, external ears normal, EAC's normal, Normal external nose present, moist oral mucous membranes and oropharynx normal HEAD & SCALP: normocephalic and atraumatic NOSE: Normal external nose present EXTERNAL EAR: Yes external ears normal EXTERNAL AUDITORY CANAL: EAC's normal Neck/C-Spine: COMMON NORMALS: no JVD Chest: COMMONS NORMALS: normal inspection of the chest and normal palpation of entire chest wall Resp: COMMON NORMALS: normal respiratory effort, No retractions, No use of accessory muscles and clear to auscultation bilaterally AUSCULTATION: clear to auscultation bilaterally Cardio: COMMON NORMALS: no JVD, regular rate, regular rhythm, S1 normal heart sound present, S2 normal heart sound present, No gallops present (Cardio), No clicks present (Cardio), No murmurs present (Cardio) and No rub (Cardio) RATE: regular rate RHYTHM: regular rhythm HEART SOUNDS: S1 normal heart sound present and S2 normal heart sound present GI: COMMON NORMALS: Normal to inspection, nondistended, normoactive bowel sounds present, Soft to palpation, non-tender, No hepatosplenomegaly present and no masses PALPATION: Yes Soft to palpation and Yes No hepatosplenomegaly present Neuro: COMMON NORMALS: patient oriented x3 SENSORIUM/ORIENTATION: Yes alert Course Vital Signs: Vital signs: Vital Signs Temperature 98.8 F 12/15/23 20:56 Pulse Rate 82 12/15/23 22:26 Respiratory Rate 18 12/15/23 23:38 Blood Pressure 114/69 12/15/23 20:56 Pulse Oximetry 92 12/15/23 22:26 Oxygen Delivery Me thod Room Air 12/15/23 22:26 MDM - Back Pain/Injury Medical Decision Making Patient was given total of 2 mg Dilaudid and 10 mg of baclofen and is resting much comfortable. Patient be discharged home. Patient said he had x-rays at the urgent care which were not negative. Patient has an appointment to follow-up with Dr. Lopez for more surgery. Patient should keep that appointment. Differential Diagnosis Unlikely lumbar radiculopathy, sciatica, strain of lumbar region, renal colic, pyelonephritis, thoracic back pain, AAA or discitis Medical Records I reviewed the patient's medical records. Labs I reviewed the patient's lab results. All radiology interpretation(s) finalized by discharge Discharge Plan Discharge Patient Disposition: Home Clinical Impression: Intractable back pain Condition: Stable Prescriptions: No Action clonidine HCl 0.1 mg tablet 0.1 mg PO TID (DME) TLSO BRACE See Rx Instructions .Route .MEDSUPPLY Qty: 1 0RF Rx Instructions: As directed mupirocin 2 % ointment 1 applic topical BID Qty: 22 5RF Rx Instructions: use twice daily around nares, groin and axilla for 5 days each month chlorhexidine gluconate [Antiseptic Skin Clnsr(chlorhe)] 4 % liquid 1 applic topical Q5M Qty: 118 0RF Rx Instructions: use face down to take a bath with hibiclens wash 5 days a month omeprazole 40 mg capsule,delayed release(DR/EC) 40 mg PO DAILY PRN (Reason: gerd) meloxicam 15 mg tablet 15 mg PO DAILY PRN (Reason: Spasms) hydrocodone-acetaminophen 7.5-325 mg tablet 1 tab PO Q4H PRN (Reason: pain) 5 Days Qty: 20 0RF methylphenidate HCl 20 mg tablet 20 mg PO BID methadone 10 mg Tablet 30 mg PO BID mirtazapine 15 mg tablet 15 mg PO BEDTIME lorazepam 1 mg tablet 1 mg PO Q6H PRN (Reason: Anxiety) baclofen 10 mg tablet 10 mg PO TID PRN (Reason: Pain) gabapentin 300 mg capsule 300 mg PO 5XD ondansetron 4 mg tablet,disintegrating 8 mg PO TID Discharge Orders: Discharge ED (Routine); Ordered 12/16/23 Ordered By: Sergio Wagner Referrals: Harjit Kohli DO [Primary Care Provider] - 1 week Patient Instructions: Back Pain (ED), Opioid Safety, Pain Management Activity Restrictions/Additional Instructions: Please continue your current pain medicine regimen. Please continue to follow-up with Dr. Lopez for definitive care and treatment. Otherwise please follow-up with your family practice physician within next 7 to 10 days for further treatment. Coding Level of Care Code ED [employer] for William Chadwick
[2023-12-15 22:21] VITALS: RESP 18
[2023-12-15] MEDS: HYDROmorphone 1 mg/mL INJ 1 mL IVP ×2 (22:21→23:38)
[2023-12-15 22:26] VITALS: PULSE 82; RESP 18; O2SAT 92
--- NOTE | 2023-12-15 23:27 | PC.NURSE ---
Family gave patient his nightly medications.
[2023-12-15 23:38] VITALS: RESP 18
[2023-12-15] MEDS: baclofen 10 mg Tablet PO (23:38)
[2023-12-16 01:02] VITALS: PULSE 89; RESP 16; O2SAT 93
[2023-12-16 01:04] VITALS: PULSE 89; RESP 16; O2SAT 93
--- NOTE | 2023-12-16 01:05 | PC.NURSE ---
Guardian Iris contacted to come pickup patient, and that he was ready for discharge. Guardian to come pickup patient.
--- NOTE | 2023-12-16 02:00 | XRR_ITS ---
PROCEDURE INFORMATION: Exam: XR Lumbosacral Spine Exam date and time: 12/16/2023 2:37 AM Age: 48 years old Clinical indication: Pain and injury or trauma and condition or disease; Blunt trauma (contusions or hematomas); Low back pain; Patient HX: Fall two days ago. Patient does have a known l2 FX since May; Additional info: Fall, chronic osteo, worse back pain TECHNIQUE: Imaging protocol: Radiologic exam of the lumbosacral spine. Views: 2 or 3 views. COMPARISON: 1. MR lumbar spine wo con* 11/08/2023 1:[address] lumbar spine wo con* [id number] 11/07/2023 5:21 PM FINDINGS: Bones/joints: No acute fracture. Stable chronic changes from L1-L2 discitis/osteomyelitis, with destruction of the endplates and [id number] height loss at L1 and severe height loss at L2. Soft tissues: Unremarkable. Gastrointestinal tract: Heavy fecal pattern incidentally noted in the colon, raising possibility of constipation. XR/XR lumbar spine 2-3V* [id number] IMPRESSION: 1. No acute fracture. 2. Stable chronic changes from L1-L2 discitis/osteomyelitis, with destruction of the endplates and [id number]-[id number] height loss at L1 and severe height loss at L2. 3. Heavy fecal pattern incidentally noted in the colon, raising possibility of constipation.
--- NOTE | 2023-12-16 02:01 | PC.NURSE ---
Guarditommy Arndt called [employer] Supervisor to request xray be taken before discharge. Guardian states that the pt fell after the previous xray was taken at Dr Fang office. Dr Wagner notified.
--- NOTE | 2023-12-16 04:05 | PC.NURSE ---
Deep Simmons was contacted at this time regarding patient's discharge status and the lumbar x-ray results. Deep then stated, Well, [place] and I have a snowy drive way, so I guess I will be there when I can. Guarditommy had no further questions or concerns.
--- NOTE | 2023-12-16 04:39 | PC.NURSE ---
This nurse spoke with Arleen, the pts guardian on the phone. She stated that she was upset d/t the fact we would not call Dr. Lopez. This nurse explained to her that he was not instrumentation instructor and she should contact his office in the morning with any concerns. Arleen was also concerned that Dr. Wagner would not be able to read the xray correctly. This nurse explained to her that the xray is sent out and a radiologist reads them. Arleen again repeated that she has been told to have Dr. Lopez called anytime the pt is in the ER. She was again informed that we would not be contacting Dr. Jessica langleyight d/t him not being instrumentation instructor and also because there was not a change in his xray. She then stated that she could not be moving him back and forth to his appointments and wanted him to stay here until 0620 when she would pick him up and take him to his methadone appointment. This nurse informed her that as of right now he could lay in the bed but if we the ER filled up and we needed that bed he would be placed in the waiting room in a wheelchair. She stated that she understood and would be here to pick him up at 0620.
[2023-12-16 04:48] VITALS: RESP 16
--- NOTE | 2023-12-16 07:25 | PC.NURSE ---
Patient's guardian arrived at 0715 to picker patient and give him a ride home, patient's guardian was very upset because she wanted the patient pushed to her vehicle via stretcher due to her broken back. Patient was ambulatory inside the room. I retrieved a wheelchair and took it into the room, I then assisted the patient into the wheelchair to assist him to the guardian's vehicle. The patient's guardian refused to sign the discharge papers and stated that we did not take care of the patient or call Dr. Lopez last night like we were instructed to. Patient's guardian appeared very upset and did not want the patient discharge.
== END 2023-12-16 07:27 | disposition home or self-care (01) ==
PROVIDERS: Emergency Provider Emergency Medicine; PCP Electrodiagnostic Medicine
DX: M54.89 Other dorsalgia (principal)
CPT/HCPCS: 72100; 96374; 96376; 99284; J1170

== ENCOUNTER 2023-12-17 14:50 | Inpatient (IN) | payer MEDICAID, SELFPAY ==
[2023-12-17 15:20] VITALS: BP 124/78; PULSE 82; RESP 17; TEMP 36.5; O2SAT 94; BMI 23.6
--- NOTE | 2023-12-17 16:44 | PC.NURSE ---
pt was adamant on self-ambulating to bathroom with visitor. refused to wait for commode.
--- NOTE | 2023-12-17 16:51 | W.ED.FALL ---
HPI - Fall General: Chief Complaint: Fall Stated Complaint: broken back per Time Seen by Provider: 12/17/23 16:18 History of Present Illness: 48-year-old male presents emergency department with complaints of right-sided leg numbness and recent falls. He is been seen by Dr. Lopez the orthopedic physician and advised that he needs back surgery with decompression and fusion. Patient states that he is now having bowel and bladder incontinence and worsening back pain. Patient does have a history of traumatic brain injury and has decreased mental cognition but is accompanied by his caregiver who is providing additional history for this patient. The caregiver states the patient is at his baseline regarding his mental cognition. Associated symptoms-after fall: Reports difficulty walking Review of Systems General: Reports: 10 or more systems reviewed and unremarkable except in HPI and below Musc: Reports: back pain and muscle weakness Neuro: Reports: numbness in extremities, weakness in extremities, sensory changes, lack of coordination, difficulty walking and other (Bowel and bladder incontinence) [facility] PFSH: Medical History History of drainage of abscess multiple Trauma in childhood Social anxiety disorder Femoral acetabular impingement Bleeding per rectum History of substance abuse Narcotic abuse Surgical History History of liver biopsy 2012 History of colonoscopy 2008 History of facial surgery 2013 No pertinent past surgical history Social History Smoking and tobacco/nicotine status: current every day tobacco/nicotine user cigarettes Packs smoked per day: 1 Years cigarettes smoked: 30 Quit status (tobacco/nicotine): has tried quititng Number of times tried to quit tobacco: 2 Second hand smoke exposure: Yes Alcohol intake: current Substance/Drug Use: current Substance/Drug use frequency: daily Other substance/drug use details: Fentanyl Current gender identity: Male Physical Exam Narrative: EXAM NARRATIVE: Constitutional: the patient appears well nourished and of normal physical development. Vital signs as documented. Patient does endorse 6 out of 10 back pain. He is alert and oriented-to person, place, time and situation. Although he does have developmental delay per the caregiver he is at his baseline. Head, eyes, ears, nose, mouth, throat: Normocephalic, atraumatic. Pupils-equal, round, reactive to light. No scleral icterus. Normal-appearing external ears. Normal appearing nasal turbinates, no drainage. No obvious oral lesions, posterior oropharynx without erythema or exudates. Neck: Supple, trachea is midline, no lymphadenopathy, no jugular venous distension, thyromegaly, or carotid bruits. Carotid upstrokes are brisk bilaterally. Lungs: clear to auscultation to all lung liang. Symmetrical rise and fall of chest, no obvious signs of increased work of breathing at present. Cardiac: Regular rate and rhythm, positive S1, S2. No murmurs, rubs or gallops that I can appreciate Abdomen: Soft, non-tender to palpation, normal active bowel sounds to all quadrants. No palpable masses, no organomegaly and abdominal bruits. Extremities: 2+ pulses in the upper extremities that are equal bilaterally, 2+ pulses in the lower extremities that are equal bilaterally. Non-edematous. Neuro: GCS 15. Decreased motor response to the right lower extremity. Decreased 2 point discrimination to the right lower leg, he is unable to discriminate hot and cold sensation to the right lower extremity. He does appear to have decreased sensation to the perineal area and is incontinent of bowel and bladder. DTRs to the right lower extremity significantly decreased in comparison to the remaining extremities Skin: Warm, dry, intact. Course Vital Signs: Vital signs: Vital Signs Temperature 98.6 F 12/18/23 19:51 Pulse Rate 69 12/18/23 19:51 Respiratory Rate 18 12/18/23 19:51 Blood Pressure 140/76 12/18/23 20:02 Pulse Oximetry 100 12/18/23 19:51 Oxygen Delivery Me thod Room Air 12/18/23 17:27 Oxygen Flow Rate 6 12/18/23 17:07 MDM - Fall Medical Decision Making Physical exam completed and documented, I will obtain a CBC, CMP PT PTT INR and EKG to evaluate the patient for inpatient admission. I will contact the patient's orthopedic spine surgeon Dr. Lopez and discuss the pt's plan of care. I will also obtain a CT scan thoracic and lumbar given his recent fall. Medical Records I reviewed the patient's medical records. Lab Data I reviewed the patient's lab results. 12/18/23 06:06 12/18/23 06:06 Radiology Impressions Lumbar Spine CT 12/17/23 17:06 IMPRESSION: Persistent sequela of chronic discitis and osteomyelitis at L1/2, with destruction and collapse of inferior endplate of L1 vertebral body and L2 vertebral body and bilateral pedicles and mild focal left upper lumbar scoliosis and kyphosis and < 5 mm, grade I (< 25%) retrolisthesis of L1 on 2. Associated moderate canal narrowing and moderate right and mild left neural foraminal narrowing at L1/2 and inferior displacement and presumed moderate impingement of cauda equina and severe impingement of bilateral L2 nerve roots from retrolisthesis of L1 on 2. L-spine MRI is better study of choice for evaluation of cauda equina or nerve root compression. THIS REPORT CONTAINS FINDINGS THAT MAY BE CRITICAL TO PATIENT CARE. The findings were verbally communicated via telephone conference with IVAN TURNER at 6:47 PM VOICE ENGINEER on 12/17/2023. The findings were acknowledged and understood. ADDENDUM: 12/17/231910 ADDENDUM: For numbering purposes, there are assumed to be *13* rib-bearing thoracic and 5 lumbar vertebrae. *As such, following discs are renumbered.* *At T11/12, mild circumferential disc bulge is partially visualized. At T12/13, there is moderate circumferential disc bulge along with vertebral osteophytes, with mild canal and mild left neural foraminal narrowing. At T13/L1, there is mild circumferential disc bulge, without significant canal, but mild left neural foraminal narrowing.* Thoracic Spine CT 12/17/23 17:06 IMPRESSION: Partially visualized sequela of chronic discitis and osteomyelitis at L1/2, with destruction and collapse of inferior endplate of L1 vertebral body and L2 vertebral body and bilateral pedicles and < 5 mm, grade I (< 25%) retrolisthesis of L1 on 2, better evaluated on l-spine CT of same date. See report of that study. All radiology interpretation(s) finalized by discharge Critical Care Time Critical Care Time: Critical Care Time: Yes Total Critical Care Time: 55 Attestation: The patients was emergently evaluated as this patient's presentation and case had a high probability of a clinically significant, sudden, or life threatening deterioration of this patient's initial critical presentation or condition which required my full and direct attention, intervention and personal management. Discharge Plan Discharge Patient Disposition: Admitted As Inpatient Admit Provider: Halytskyy,Kennedy Clinical Impression: Cauda equina compression, Paresthesia of right leg, Accidental fall, Bowel and bladder incontinence Condition: Stable Coding Level of Care Code ED [employer] Delivery Driver for William Chadwick
--- NOTE | 2023-12-17 17:06 | CTR_ITS ---
PROCEDURE INFORMATION: Exam: CT Lumbar Spine Without Contrast Exam date and time: 12/17/2023 5:46 PM Age: 48 years old Clinical indication: Low back pain; Additional info: Paresthesia with bowel and bladder incontinence TECHNIQUE: Imaging protocol: Computed tomography of the lumbar spine without contrast. Radiation optimization: All CT scans at this facility use at least one of these dose optimization techniques: automated exposure control; mA and/or kV adjustment per patient size (includes targeted exams where dose is matched to clinical indication); or iterative reconstruction. COMPARISON: 1. MR lumbar spine wo con* [id number] 11/08/2023 1:48 PM 2. L-spine CT 11/07/23 3. Abdomen/pelvis CT 09/13/20 RADIATION DOSE METRICS: Total DLP (mGy-cm): 696 FINDINGS: Bones/joints: For numbering purposes, there are assumed to be 12 rib-bearing thoracic and 5 lumbar vertebrae. There is mild focal left upper lumbar scoliosis and kyphosis. < 5 mm, grade I (< 25%) retrolisthesis of L1 on 2 is unchanged from 11/07/23. L1/2 disc remains severely narrowed and irregular, with associated sclerosis of L1 and 2 vertebral bodies and moderate destruction and collapse of inferior endplate of L1 vertebral body and severe destruction and collapse of L2 vertebral body and bilateral pedicles, consistent with sequela of chronic discitis and osteomyelitis. There is associated moderate canal narrowing and moderate right and mild left neural foraminal narrowing at L1/2 and inferior displacement and presumed moderate impingement of cauda equina and severe impingement of bilateral L2 nerve roots from retrolisthesis of L1 on 2. At T10/11, mild circumferential disc bulge is partially visualized. At T11/12, there is moderate circumferential disc bulge along with vertebral osteophytes, with mild canal and mild left neural foraminal narrowing. At T12/L1, there is mild circumferential disc bulge, without significant canal, but mild left neural foraminal narrowing. At L2/3, there is mild circumferential disc bulge, without significant canal or neural foraminal narrowing. At L3/4, there is moderate circumferential disc bulge along with mild-moderate, bilateral ligamentum flavum and facet hypertrophy, with moderate canal, but no significant neural foraminal narrowing. At L4/5, there is mild circumferential disc bulge and mild bilateral ligamentum flavum and facet hypertrophy with mild canal, but no significant neural foraminal narrowing. L5/S1, there is mild circumferential disc bulge and mild right facet hypertrophy, without significant canal or neural foraminal narrowing. Lungs: Mild, reticular opacities at dependent portions of bilateral lower lobes likely represent subsegmental atelectasis. Adrenal glands: Bilateral adrenals are plump. Vasculature: Abdominal aorta and bilateral iliac arteries are mild-moderately tortuous. Abdominal aorta is mildly calcified. Soft tissues: Unremarkable. CT/CT lumbar spine wo con* [id number] IMPRESSION: Persistent sequela of chronic discitis and osteomyelitis at L1/2, with destruction and collapse of inferior endplate of L1 vertebral body and L2 vertebral body and bilateral pedicles and mild focal left upper lumbar scoliosis and kyphosis and < 5 mm, grade I (< 25%) retrolisthesis of L1 on 2. Associated moderate canal narrowing and moderate right and mild left neural foraminal narrowing at L1/2 and inferior displacement and presumed moderate impingement of cauda equina and severe impingement of bilateral L2 nerve roots from retrolisthesis of L1 on 2. L-spine MRI is better study of choice for evaluation of cauda equina or nerve root compression. THIS REPORT CONTAINS FINDINGS THAT MAY BE CRITICAL TO PATIENT CARE. The findings were verbally communicated via telephone conference with IVAN TURNER at 6:47 PM BARREL HEADER on 12/17/2023. The findings were acknowledged and understood.
--- NOTE | 2023-12-17 17:06 | CTR_ITS ---
PROCEDURE INFORMATION: Exam: CT Thoracic Spine Without Contrast Exam date and time: 12/17/2023 5:43 PM Age: 48 years old Clinical indication: Pain in thoracic spine; Additional info: Fall/paresthesias TECHNIQUE: Imaging protocol: Computed tomography of the thoracic spine without contrast. Radiation optimization: All CT scans at this facility use at least one of these dose optimization techniques: automated exposure control; mA and/or kV adjustment per patient size (includes targeted exams where dose is matched to clinical indication); or iterative reconstruction. COMPARISON: MR thoracic spin wo con* [id number] 11/08/2023 2:22 PM RADIATION DOSE METRICS: Total DLP (mGy-cm): 872 FINDINGS: Bones/joints: For numbering purposes, there are assumed to be 13 rib-bearing thoracic vertebrae. There is mild right mid thoracic scoliosis. No acute fractures. < 5 mm, grade I (< 25%) retrolisthesis of L1 on 2 is partially visualized. L1/2 disc remains severely narrowed and irregular, with associated sclerosis of L1 and 2 vertebral bodies and moderate destruction and collapse of inferior endplate of L1 vertebral body and severe destruction and collapse of L2 vertebral body and bilateral pedicles, consistent with sequela of chronic discitis and osteomyelitis. This is better evaluated on l-spine CT of same date. Moderate degenerative disc and facet disease of lower cervical spine, as evidenced by vertebral osteophytes and facet hypertrophy, is present. There is mild and mild-moderate degenerative disc disease of several levels of thoracic spine and mild degenerative facet disease of lower thoracic spine, as evidenced by vertebral osteophytes and facet hypertrophy. At T12/13, there is mild canal and mild left neural foraminal narrowing. At T13/L1, there is mild left neural foraminal narrowing. Soft tissues: Unremarkable. Vasculature: Descending thoracic aorta is moderately tortuous. Thoracic aorta is minimally calcified. Ligamentum arteriosum is incidentally calcified. Lymph nodes: A few, < 1.1 cm in short axis, non and mildly enlarged, distal paraesophageal lymph nodes are nonspecific. Lungs: Mild, crescentic air-space opacities at dependent portion of right lower lobe and mild, linear and reticular opacities at dependent portions of bilateral upper and lower lobes likely reflect subsegmental atelectasis. Adrenal glands: Bilateral adrenals are plump. CT/CT thoracic spin wo con* [id number] IMPRESSION: Partially visualized sequela of chronic discitis and osteomyelitis at L1/2, with destruction and collapse of inferior endplate of L1 vertebral body and L2 vertebral body and bilateral pedicles and < 5 mm, grade I (< 25%) retrolisthesis of L1 on 2, better evaluated on l-spine CT of same date. See report of that study.
[2023-12-17 18:04] LABS: Basophils % 0.4 %; Eosinophils # 0.4 10^3/uL (0.0-0.8); Eosinophils % 5.1 %; Hematocrit 30.9 % (37-53); Lymphocytes # 1.3 10^3/uL (0.8-4.8); Lymphocytes % 19.6 %; Mean Corpuscular HGB Conc 31.4 g/dL (30-55); Mean Corpuscular Hemoglobin 26.6 pg (27-33); Mean Corpuscular Volume 84.7 fl (82-101); Mean Platelet Volume 8.9 fL (7.4-10.4); Monocytes # 0.5 10^3/uL (0.2-0.9); Monocytes % 7.6 %; Neutrophils # 4.54 10^3/uL (1.8-7.7); Neutrophils % 66.9 %; Nucleated Red Blood Cells % 0 %; Platelet Count 323 10^3/cmm (157-399); Red Blood Count 3.65 10^6/uL (3.85-5.65); Red Cell Distribution Width 13.6 % (12.1-15.1)
--- NOTE | 2023-12-17 18:06 | ECG_ITS ---
[facility] Test Date: 2023-12-17 Pat Name: Joby Jean Department: Room: Gender: Male Termite Inspector: : 1975 Requested By: Bob Nina Order Number: [id number] Rachid MD: Wei Wayne M.D. Measurements Intervals [place] Rate: 63 P: 56 MI: 152 QRS: 13 QRSD: 80 T: 22 QT: 417 QTc: 428 Interpretive Statements SINUS RHYTHM Compared to ECG 10/14/2023 13:58:37 No significant changes Electronically Signed On 12-18-2023 12:20:52 SLAT GRADER by Wei Wayne M.D. [email or web address]
[2023-12-17 18:19] LABS: INR 0.97 (0.8-1.2)
[2023-12-17 18:46] LABS: Alanine Aminotransferase 30 U/L (0-41); Albumin Level 3.6 g/dL (3.5-5.2); Alkaline Phosphatase 123 U/L (40-130); Aspartate Amino Transferase 29 U/L (0-40); Blood Urea Nitrogen 10 mg/dL (6-20); Calcium 8.7 mg/dL (8.5-10.5); Carbon Dioxide 28 mmol/L (22-29); Chloride 98 mmol/L (98-107); Globulin 4.2 g/dL (1.3-4.6); Glomerular Filtration Rate 119.9 mL/min (90-130); Glucose 98 mg/dL (65-115); Osmolality Calculated 285 mOsm/kg (285-295); Sodium 138 mmol/L (136-145); Total Bilirubin 0.2 mg/dL (0.15-1.2); Total Protein 7.8 g/dL (6.6-8.7)
--- NOTE | 2023-12-17 19:10 | P.HP_ITS ---
Providers/Chief Complaint 2 Admitting Physician: Kennedy Cash Primary Care Provider: Harjit Kohli DO Chief Complaint: broken back per History of Present Illness 48-year-old gentleman with history of chronic cellulitis of L2, history of MRSA infection, status post IV antibiotic, on chronic suppression with Bactrim, vertebral destruction, collapse of L1-L2, remote history of substance use disorder, on methadone, hepatitis C, treatment has been paused, admitted in October at that time could not undergo surgery with orthospine surgeon unavailable, arrangements were going to be made outpatient, however, has been having worsening symptoms, worsening back pain, bowel habit changes, reporting some difficulties with continence urine, feces, states he is unable to urinate by evaluation, urine accumulates to a certain amount, and then he urinates, denies lower abdominal pain. Similar problems with bowel movements, states sometimes does not make it to the bathroom. Reports worsening back pain. Worsening paresthesia right lower extremity, some numbness around the groin. Orthospine surgery was contacted from ER, requesting admission, n.p.o. after midnight plans for surgical intervention in the morning. Patient states otherwise has been at baseline state of health, denies any cardiac issues in the past, no chest pain or pressure, no shortness of breath at rest or with exertion. Review of Systems 2 Const: Denies: fever(s), chills, body aches or malaise ENMT: Denies: throat pain Card: Denies: chest pain, edema, pre-syncope or dyspnea on exertion Resp: Denies: dyspnea, productive cough, change in phlegm color or hemoptysis GI: Reports: fecal incontinence and change in bowel habits; Denies: abdominal pain, nausea, vomiting, diarrhea, constipation, hematochezia or melena : Reports: urinary hesitancy and urinary incontinence; Denies: flank pain, difficulty urinating, urinary frequency or hematuria Musc: Reports: back pain; Denies: joint swelling or joint redness Skin/Breast: Denies: rash or new lesions Neuro: Reports: other (Groin numbness); Denies: headache(s), numbness in extremities, weakness in extremities, dizziness, confusion or seizure-like activity Medications/Allergies Home Medications Medication Instructions Recorded Confirmed Last Taken Type clonidine HCl 0.1 mg tablet 0.1 mg PO TID 02/16/23 12/11/23 12/11/23 History TLSO BRACE #1 ea 07/09/23 12/08/23 Unknown Rx methylphenidate HCl 20 mg tablet 20 mg PO BID 08/03/23 12/11/23 12/11/23 History lorazepam 1 mg tablet 1 mg PO Q6H PRN Anxiety 10/14/23 12/11/23 12/11/23 History methadone 10 mg tablet 30 mg PO BID 10/14/23 12/11/23 12/11/23 History mirtazapine 15 mg tablet 15 mg PO BEDTIME 10/14/23 12/11/23 12/10/23 History chlorhexidine gluconate 4 % 1 applic topical Q5M 2 doses #118 12/01/23 12/11/23 12/11/23 Rx topical liquid (Antiseptic Skin mL Cleanser (chlorhexidine)) mupirocin 2 % topical ointment 1 applic topical BID 12/01/23 12/11/23 12/11/23 Rx decolonization #22 grams meloxicam 15 mg tablet 15 mg PO DAILY PRN Spasms 12/09/23 12/11/23 12/10/23 History omeprazole 40 mg capsule,delayed 40 mg PO DAILY PRN gerd 12/09/23 12/11/23 12/11/23 History release baclofen 10 mg tablet 10 mg PO TID PRN Pain 12/11/23 12/11/23 Unknown History gabapentin 300 mg capsule 300 mg PO 5XD 12/11/23 12/11/23 12/11/23 History ondansetron 4 mg disintegrating 8 mg PO TID Nausea 12/11/23 12/11/23 12/11/23 History tablet hydrocodone 7.5 mg-acetaminophen 1 tab PO Q4H PRN pain 5 days #20 12/14/23 Unknown Rx 325 mg tablet tabs Allergies Allergy/AdvReac Type Severity Reaction Status Date / Time trazodone Allergy ADR-Nightma Verified 12/17/23 15:42 re haldol Allergy Severe ADR-Anxiety Uncoded 12/17/23 15:42 contrast dye Allergy Mild ADR-Itching Uncoded 12/17/23 15:42 PFSH Acute 2 PFSH: Medical History History of drainage of abscess multiple Trauma in childhood Social anxiety disorder Femoral acetabular impingement Bleeding per rectum History of substance abuse Narcotic abuse Surgical History History of liver biopsy 2013 History of colonoscopy 2009 History of facial surgery 2013 No pertinent past surgical history Social History Smoking and tobacco/nicotine status: current every day tobacco/nicotine user cigarettes Packs smoked per day: 1 Years cigarettes smoked: 30 Quit status (tobacco/nicotine): has tried quititng Number of times tried to quit tobacco: 2 Second hand smoke exposure: Yes Alcohol intake: current Substance/Drug Use: current Substance/Drug use frequency: daily Other substance/drug use details: Fentanyl Current gender identity: Male Vitals/I&O/Wt Last Vital Signs Temp 97.7 F 12/17/23 15:20 Pulse 82 12/17/23 15:20 Resp 17 12/17/23 15:20 BP 124/78 12/17/23 15:20 Pulse Ox 94 12/17/23 15:20 O2 Del Method Room Air 12/17/23 15:20 Weight last 48 hrs Weight 81.193 kg Physical Exam 2 Narrative: Accompanied by his guardian. Const: COMMON NORMALS: patient oriented x3 and alert GENERAL APPEARANCE: c ooperative ORIENTATION/CONSCIOUSNESS: Yes awake HENMT: COMMON NORMALS: oropharynx normal Neck/C-Spine: COMMON NORMALS: no JVD Resp: COMMON NORMALS: normal respiratory effort and clear to auscultation bilaterally AUSCULTATION: clear to auscultation bilaterally Cardio: COMMON NORMALS: no JVD, regular rhythm, S1 normal heart sound present, S2 normal heart sound present and No murmurs present (Cardio) RHYTHM: regular rhythm HEART SOUNDS: S1 normal heart sound present and S2 normal heart sound present GI: COMMON NORMALS: Normal to inspection, nondistended, normoactive bowel sounds present, Soft to palpation and non-tender PALPATION: Yes Soft to palpation Extremity: COMMON NORMALS: no joint enlargement and no pedal edema OTHER: Moves bilateral lower extremities, feet. Feels light touch but decreased sensation right lower extremity. Extremities, Neuro: COMMON NORMALS: patient oriented x3 and moves all extremities S ENSORIUM/ORIENTATION: Yes alert Skin: COMMON NORMALS: no rashes or lesions noted GENERAL SKIN EXAM: no rashes or lesions noted Data 12/17/23 17:25 12/17/23 17:25 A&P Assessment and plan (1) Lumbar vertebral collapse: L1/2 distraction and collapse, worsening symptoms, worse pain, paresthesia, decrease sensation right lower extremity, change in urinary and bowel habits, reports some groin numbness as well. Concern for progression to cauda equina syndrome in addition to nerve root impingement. At this point surgery has been consulted, requests to be n.p.o. and description of surgery in the morning. He otherwise has been in baseline state of health. Denies cardiac or respiratory issues. On methadone. Last time taking this morning, 60 mg dose. Continue in the morning with 30 mg until can be confirmed. Reviewed vitals, CBC, CMP, INR, PTT. EKG, QTc. Thoracic spine CT, lumbar spine CT. Reviewed ER note, discussed with ER physician. Prescription patient and his guardian he was advised to pause Bactrim for the time of surgery to be resumed after as per infectious disease and orthospine. NPO. SCD DVT prophylaxis. 1 dose heparin in anticipation of surgery. Will empirically start vancomycin for now. Will need to follow-up with infectious disease. Continue acetaminophen, Bactrim, hydrocodone as needed for pain, methadone. IV Dilaudid as needed for severe breakthrough. Narcan as needed in case of respiratory depression. Plan Smoking disorder: Discussed cessation of pain, he would like to have nicotine patch. Requested. Brucellosis is pending. History of substance use On methadone: Thursday take 60 mg once a day in the morning, other days takes 30 mg twice daily. Take 60 mg. This morning. Resume tomorrow 30 mg, will need to confirm dose with clinic. Reassess renal function with hospitalization, vancomycin, surgical intervention. Monitor for QTc prolongation with methadone. Hepatitis C: Treatment has been on positive, he is to follow-up with infectious disease and resume treatment after current condition is addressed. Attestations 2 Medical Necessity Statement*: Admission of over 2 midnights anticipated for assessment management of worsened vertebral collapse, possible cauda equina syndrome. Diagnoses Lumbar vertebral collapse M48.56XA
[2023-12-17 19:12] VITALS: BP 136/88; PULSE 73; O2SAT 96
[2023-12-17 19:15] LABS: Anion Gap 16.2 (5-19); Potassium 4.2 mmol/L (3.5-5.1)
--- NOTE | 2023-12-17 19:25 | PC.NURSE ---
report called to Ree on Med-Surg, no further questions at time of report
[2023-12-17 19:38] VITALS: BP 136/88; PULSE 73; O2SAT 96
[2023-12-17 20:32] VITALS: BP 125/79; PULSE 83; RESP 19; TEMP 37.1; O2SAT 98
--- NOTE | 2023-12-17 21:10 | PC.PHAR ---
Pharmacy to dose Vancomycin Vanco Initial Dosing Patient Information Sex M M/F Last Name Ei AGE 48 years First Name Joby Ht 73 inches : 1975 ABW 75.744 kg Location: [facility] IBW 79.9 kg If loading dose given: DW 75.744 kg Loading DOSE: 1250 mg SCr 0.7 mg/dl This Dose = 16.5 mg/kg CrCl 136.8 ml/min 1st dose Cmax: 20.8 mcg/ml Vd 56.808 liters Time elapsed: 12.0 hrs Ke 0.118 hrs-1 Serum Conc. = 5.0 mcg/ml t1/2 6 hrs Hrs until 20 mcg/ml 1.3 hrs Hrs until 15 mcg/ml 3.8 hours Hrs until 10 mcg/ml 7.2 hours Dose Tau (Freq) Levels expected Standard 1250 12 Cmax 25.9 Targets 16.50 8.8 Cpeak 23.0 25 to 40 mg/kg hours Cmin 8.0 10 to 20
[2023-12-17 21:23] VITALS: BP 125/79
[2023-12-17] MEDS: cloNIDine 0.1 mg Tablet PO (21:23)
[2023-12-17] MEDS: mirtazapine 15 mg Tablet PO (21:23)
[2023-12-17] MEDS: gabapentin 300 mg Capsule PO (21:23)
[2023-12-17] MEDS: vancomycin 1,250 MG/250 ML PIGGYBACK 250 MG IV (21:23)
--- NOTE | 2023-12-17 21:25 | PC.NURSE ---
Patient states putting a nicotine patch on before bed causes him to have nightmares and sleep walk.
--- NOTE | 2023-12-17 21:35 | PC.NURSE ---
This nurse to bedside to complete admission assessment and document belongings. Patient accompanied by adult female who states she is the patient's caregiver. This nurse asked if the patient had any medications from home at bedside and explained that all personal belongings from home(medications or otherwise) must be documented by staff so that his belongings can go home with him at discharge. This nurse also explained that the patient cannot take any medications from home while here. Caregiver stated that he did have medications but that she would be taking them when she goes home. Caregiver and patient refused to let this nurse view and document personal belongings. This nurse then gave scheduled 2100 meds. Caregiver asked if patient was going to take zofran; this nurse explained we do not have his home formula of zofran in our pharmacy but that we could send his supply down to pharmacy to administer while he is here. Patient's caregiver then opened multiple pill containers before attempting to give the patient zofran from his home supply. This nurse stated that the patient cannot take medications from home without them being verified by pharmacy and scanned by a nurse. Caregiver stated she had given flexeril to the patient(from his home supply) prior to his CT scan. Both patient and caregiver were educated multiple times about the safety risks of taking home medications while in the hospital.
[2023-12-17] MEDS: HYDROcodone-acetaminophen 7.5-325 mg Tablet 1 TAB PO (22:17)
[2023-12-18] VITALS (22 sets, daily range): BP systolic 96–189; BP diastolic 63–107; PULSE 59–89; RESP 12–19; TEMP 36.3–37.2; O2SAT 92–100; BMI 22.8
[2023-12-18 06:16] LABS: Basophils % 0.5 %; Eosinophils # 0.4 10^3/uL (0.0-0.8); Eosinophils % 6.8 %; Hematocrit 31.9 % (37-53); Lymphocytes % 17.5 %; Mean Corpuscular HGB Conc 31.3 g/dL (30-55); Mean Corpuscular Hemoglobin 26.6 pg (27-33); Mean Corpuscular Volume 84.8 fl (82-101); Mean Platelet Volume 8.5 fL (7.4-10.4); Monocytes # 0.5 10^3/uL (0.2-0.9); Monocytes % 8.1 %; Neutrophils # 3.92 10^3/uL (1.8-7.7); Neutrophils % 66.6 %; Nucleated Red Blood Cells % 0 %; Platelet Count 291 10^3/cmm (157-399); Red Blood Count 3.76 10^6/uL (3.85-5.65); Red Cell Distribution Width 13.6 % (12.1-15.1); White Blood Count 5.89 10^3/uL (3.29-11.43)
[2023-12-18 06:33] LABS: Alanine Aminotransferase 26 U/L (0-41); Albumin Level 3.3 g/dL (3.5-5.2); Alkaline Phosphatase 114 U/L (40-130); Anion Gap 13.9 (5-19); Aspartate Amino Transferase 23 U/L (0-40); Blood Urea Nitrogen 10 mg/dL (6-20); Calcium 8.7 mg/dL (8.5-10.5); Carbon Dioxide 29 mmol/L (22-29); Chloride 101 mmol/L (98-107); Globulin 3.9 g/dL (1.3-4.6); Glomerular Filtration Rate 119.9 mL/min (90-130); Glucose 126 mg/dL (65-115); Magnesium 2.1 mg/dL (1.7-2.3); Osmolality Calculated 291 mOsm/kg (285-295); Potassium 3.9 mmol/L (3.5-5.1); Sodium 140 mmol/L (136-145); Total Bilirubin 0.2 mg/dL (0.15-1.2); Total Protein 7.2 g/dL (6.6-8.7)
--- NOTE | 2023-12-18 07:12 | PM.CONSULT ---
Providers/Reason For Consult Consulting Physician/Specialty*: [facility] Reason for Consult*: L1/L2 osteomylitis with progressive neurodeficits Attending Physician: Kennedy Cash Primary Care Provider: Harjit Kohli DO History of Present Illness History of Present Illness Joby Jean is a 48 year old male with long history of progressively worsening discitis and osteomyelitis to collapse of the L2 vertebrae at this point patient has progressive compression on his spinal cord with progressive neurologic deficits including bowel and bladder incontinence. At this point plan to take him to the OR today. Review of Systems Const: Denies: fever(s), chills, body aches or malaise ENMT: Denies: throat pain Card: Denies: chest pain, edema, pre-syncope or dyspnea on exertion Resp: Denies: dyspnea, productive cough, change in phlegm color or hemoptysis GI: Reports: fecal incontinence and change in bowel habits; Denies: abdominal pain, nausea, vomiting, diarrhea, constipation, hematochezia or melena : Reports: urinary hesitancy and urinary incontinence; Denies: flank pain, difficulty urinating, urinary frequency or hematuria Musc: Reports: back pain; Denies: joint swelling or joint redness Skin/Breast: Denies: rash or new lesions Neuro: Reports: other (Groin numbness); Denies: headache(s), numbness in extremities, weakness in extremities, dizziness, confusion or seizure-like activity Medications/Allergies Home Medications Medication Instructions Recorded Confirmed Last Taken Type clonidine HCl 0.1 mg tablet 0.1 mg PO TID 02/16/23 12/11/23 12/11/23 History TLSO BRAANIRUDH #1 ea 07/09/23 12/08/23 Unknown Rx methylphenidate HCl 20 mg tablet 20 mg PO BID 08/03/23 12/11/23 12/11/23 History lorazepam 1 mg tablet 1 mg PO Q6H PRN Anxiety 10/14/23 12/11/23 12/11/23 History methadone 10 mg tablet 30 mg PO BID 10/14/23 12/11/23 12/11/23 History mirtazapine 15 mg tablet 15 mg PO BEDTIME 10/14/23 12/11/23 12/10/23 History chlorhexidine gluconate 4 % 1 applic topical Q5M 2 doses #118 12/01/23 12/11/2312/11/24 Rx topical liquid (Antiseptic Skin mL Cleanser (chlorhexidine)) mupirocin 2 % topical ointment 1 applic topical BID 12/01/23 12/11/23 12/11/23 Rx decolonization #22 grams meloxicam 15 mg tablet 15 mg PO DAILY PRN Spasms 12/09/23 12/11/23 12/10/23 History omeprazole 40 mg capsule,delayed 40 mg PO DAILY PRN gerd 12/09/23 12/11/23 12/11/23 History release baclofen 10 mg tablet 10 mg PO TID PRN Pain 12/11/23 12/11/23 Unknown History gabapentin 300 mg capsule 300 mg PO 5XD 12/11/23 12/11/23 12/11/23 History ondansetron 4 mg disintegrating 8 mg PO TID Nausea 12/11/23 12/11/23 12/11/23 History tablet hydrocodone 7.5 mg-acetaminophen 1 tab PO Q4H PRN pain 5 days #20 12/14/23 Unknown Rx 325 mg tablet tabs Allergies Allergy/AdvReac Type Severity Reaction Status Date / Time trazodone Allergy ADR-Nightma Verified 12/17/23 15:42 re haldol Allergy Severe ADR-Anxiety Uncoded 12/17/23 15:42 contrast dye Allergy Mild ADR-Itching Uncoded 12/17/23 15:42 Current Medications Generic Name Dose Route Start Last Admin Trade Name Freq PRN Reason Stop Dose Admin Hydrocodone Bitart/Acetaminophen 1 tab 12/17/23 20:32 12/17/23 22:17 Hydrocodone-Acetaminophen 7.5-325 Mg Tablet PO 1 tab Q4H PRN Administration pain Clonidine HCl 0.1 mg 12/17/23 21:00 12/17/23 21:23 Clonidine 0.1 Mg Tablet PO 0.1 mg TID AARTI Administration Gabapentin 300 mg 12/17/23 22:00 12/18/23 06:20 Gabapentin 300 Mg Capsule PO Not Given 5XD AARTI Vancomycin/PEG/NADA/Lysine/Water 1,250 mg in 250 mls @ 250 mls/hr 12/17/23 22:00 12/17/23 22:38 Vancocin IV Infused Q12H AARTI Infusion Mirtazapine 15 mg 12/17/23 21:00 12/17/23 21:23 Mirtazapine 15 Mg Tablet PO 15 mg BEDTIME AARTI Administration Nicotine 1 patch 12/17/23 20:32 12/17/23 21:25 Nicotine 14 Mg Patch TRANSDERMA Not Given Q24H AARTI Non-Formulary Medication 8 mg 12/17/23 21:00 12/17/23 22:18 Ondansetron PO 8 mg TID AARTI Administration PFSH Acute PFSH: Medical History History of drainage of abscess multiple Trauma in childhood Social anxiety disorder Femoral acetabular impingement Bleeding per rectum History of substance abuse Narcotic abuse Surgical History History of liver biopsy 2012 History of colonoscopy 2009 History of facial surgery 2013 No pertinent past surgical history Social History Smoking and tobacco/nicotine status: current every day tobacco/nicotine user cigarettes Packs smoked per day: 1 Years cigarettes smoked: 30 Quit status (tobacco/nicotine): has tried quititng Number of times tried to quit tobacco: 2 Second hand smoke exposure: Yes Alcohol intake: current Substance/Drug Use: current Substance/Drug use frequency: daily Other substance/drug use details: Fentanyl Current gender identity: Male Vitals/I&O/Wt Last Vital Signs Temp 98.6 F 12/18/23 04:00 Pulse 62 12/18/23 04:00 Resp 19 H 12/18/23 04:00 BP 108/70 12/18/23 04:00 Pulse Ox 94 12/18/23 04:00 O2 Del Method Room Air 12/18/23 04:00 12/17/23 12/18/23 12/18/23 22:59 06:59 14:59 Intake Total 250 / 250 Balance 250 / 250 Weight last 48 hrs Weight 173 lb 9.6 oz Weight 173 lb 9.6 oz Weight 179 lb Physical Exam Narrative: Weakness bilateral extremities and severe pain Data 12/18/23 06:06 12/18/23 06:06 A&P Assessment and plan (1) Intractable back pain: Patient has severe collapse of L1 on L2 vertebrae. With compression of the spinal cord at this point plan to take him to do a T10-L4 posterior spine fusion with decompression of the L1-L3 level. I had an open and honest discussion with the patient about the risks, benefits and alternatives to both surgical and nonsurgical treatment. The patient verbalized understanding of the inherent unpredictability associated with surgery. Risk of surgery were discussed including, but not limited to, infection, bleeding, temporary and permanent nerve damage, continued pain, stiffness, incomplete healing, need for revision surgery, blood clot and other complications. The patient verbalized understanding that there is spine is elective in nature and if they find any of these risks to be unacceptable then they should choose not to have the surgery. The patient verbalized understanding of these risks and elected to proceed with the surgery. Coding Level of Care Code Acute Code for [facility] Diagnoses Intractable back pain M54.9
--- NOTE | 2023-12-18 07:17 | SC_ITS ---
NOTE: Report was unsigned for reason: Order was edited. Original Signature date and time was: 12/18/23 @ 1600 WS: [id number] C-ARM RADIOGRAPHS SPINE; 2 IMAGES HISTORY: Surgery COMPARISON: None available. A single image of the lumbar spine is submitted. Intraoperative imaging during procedure by Dr. Lopez. IMPRESSION: Intraoperative imaging for Dr. Lopez. [facility]
[2023-12-18] MEDS: gabapentin 300 mg Capsule PO ×3 (08:30→22:17)
[2023-12-18] MEDS: methylphenidate 10 mg Tablet 20 MG PO ×2 (09:35→17:38)
[2023-12-18] MEDS: methadone 10 mg Tablet 30 MG PO ×2 (09:35→19:33)
[2023-12-18] MEDS: pantoprazole DR 40 mg Tablet PO (09:36)
[2023-12-18] MEDS: cloNIDine 0.1 mg Tablet PO ×2 (09:36→17:39)
[2023-12-18] MEDS: vancomycin 1,250 MG/250 ML PIGGYBACK 250 MG IV (09:38)
--- NOTE | 2023-12-18 10:10 | PC.CHAP ---
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 visit [] Patient/Family/Request visit [] Outpatient visit [] Follow-up visit [] Physician referral [] Code/Alert [x] Routine visit [] Staff referral [] Actively dying [] Patient sleeping [x Family support [] [] Out of room [] Palliative care [] [] Receiving care in room [] Pre-surgical visit [] Trauma [] Long length of stay [] ICU visit [] Other: Relational/Emotional Strength [x] Patient feels connected with others/family/visitors/staff [] Distress [] Loneliness/isolation [] Abandonment Spirituality of Patient [x] Person of Nelida [] Attends Taoist of their Nelida [x] Believes in Prayer [] Reads Bible or Pentecostalism materials [] There are Spiritual issues to be addressed Cask Maker Interventions [x] Prayer [x] Active listening [x] Non-anxious presence [x] Spiritual/emotional support [] Crisis/trauma care [] Spiritual counseling [] Bereavement support [] Provided bereavement packet [] Provided Bible/devotional materials [] Provided toy/stuffed animal, coloring book to patient or family member [] Provided Communion [] Anointing/[place] [] Salvation [x] Completed spiritual assessment [] Other: Impact on Illness or Injury [] Angry [] Fearful [] Anxious [] Often cries [] Exhaustion [] Unable to work [] Unable to attend orthodoxy [] Unable to walk/stand [] Unable to read [] Unable to drive [] Unable to eat/drink [] Unable to sleep [] Unable to be with family [] Patient intubated [] Other: Summary Time spent with patient 10 min
--- NOTE | 2023-12-18 11:17 | SUR.PREOP ---
1110 Here to get pt to transport to surgery and family member states he is tolieting and may be as long as fifteen minutes,asked for family member to notify of when pt is finished and verbalized understanding
--- NOTE | 2023-12-18 11:49 | PC.NURSE ---
Patient to surgery at this time.
[2023-12-18] MEDS: sodium chloride 0.9% 1,000 ML 30 ML IV (12:10)
--- NOTE | 2023-12-18 12:27 | P.ANESASSM_ITS ---
Pre-Anesthetic Assessment Height/Weight: Height 1.85 m Weight 78.744 kg Temp Pulse Resp BP Pulse Ox O2 Del Method 98.6 F 89 18 135/82 96 Room Air 12/18/23 11:50 12/18/23 11:50 12/18/23 11:50 12/18/23 11:50 12/18/23 11:50 12/18/23 11:50 Preop Diagnosis: L1-2 osteomyelitis with cauda equina syndrome Operation Date: 12/18/23 14:00 Proposed Procedures p t-10 posterior spine fusion decompression L1-L3(Not Applicable) - Jacob Lopez, DO Familial anesthetic complications: Awake during part of his emergency brain surgery from trauma, his extensive use of methadone and opioid use was thought to contribute Was Beta Sebastien taken within 24 hours: N/A Was Clonidine taken within 24 hours: N/A Last intake: Intake Last Liquid Date 12/17/23 Last Liquid Time 23:55 Last Solid Date 12/17/23 Last Solid Time 22:00 Social No alcohol and No tobacco Exam alert, oriented x 3, clear to auscultation bilaterally and regular rate & rhythm Airway Mallampati: Class III Dentition: chipped Hepatic Hepatitis GI Gastroesophageal Reflux Disease Neuropsych extensive opioid abuse d/o on methadone, uses marijuana, improved with ketamine adminstration, on methylphenidate Anesthetic Plan ASA status: 3 Anesthesia: General Risk of > 500 ml blood loss (7ml/kg in children): No Medications/Allergies Home Medications Medication Instructions Recorded Confirmed Last Taken Type clonidine HCl 0.1 mg tablet 0.1 mg PO TID 02/16/23 12/18/23 12/11/23 History TLSO BRACE #1 ea 07/09/23 12/18/23 Unknown Rx methylphenidate HCl 20 mg tablet 20 mg PO BID 08/03/23 12/18/23 12/11/23 History lorazepam 1 mg tablet 1 mg PO Q6H PRN Anxiety 10/14/23 12/18/23 12/11/23 History methadone 10 mg tablet 30 mg PO BID 10/14/23 12/18/23 12/11/23 History mirtazapine 15 mg tablet 15 mg PO BEDTIME 10/14/23 12/18/23 12/10/23 History chlorhexidine gluconate 4 % 1 applic topical Q5M 2 doses #118 12/01/23 12/18/23 12/11/23 Rx topical liquid (Antiseptic Skin mL Cleanser (chlorhexidine)) mupirocin 2 % topical ointment 1 applic topical BID 12/01/23 12/18/23 12/11/23 Rx decolonization #22 grams meloxicam 15 mg tablet 15 mg PO DAILY PRN Spasms 12/09/23 12/18/23 12/10/23 History omeprazole 40 mg capsule,delayed 40 mg PO DAILY PRN gerd 12/09/23 12/18/23 12/11/23 History release baclofen 10 mg tablet 10 mg PO TID PRN Pain 12/11/23 12/18/23 Unknown History gabapentin 300 mg capsule See Rx Instructions .Route .COMPLEX 12/11/23 12/18/23 12/11/23 History ondansetron 4 mg disintegrating 8 mg PO TID 12/11/23 12/18/23 12/11/23 History tablet hydrocodone 7.5 mg-acetaminophen 1 tab PO Q4H PRN pain 5 days #20 12/14/23 12/18/23 Unknown Rx 325 mg tablet tabs chlorhexidine gluconate 4 % 1 applic topical Q4D 12/18/23 12/18/23 Unknown History topical liquid (Hibiclens) sulfamethoxazole 800 1 tab PO DAILY 12/18/23 12/18/23 Unknown History mg-trimethoprim 160 mg tablet Allergies Allergy/AdvReac Type Severity Reaction Status Date / Time trazodone Allergy ADR-Nightma Verified 12/17/23 15:42 re haldol Allergy Severe ADR-Anxiety Uncoded 12/17/23 15:42 contrast dye Allergy Mild ADR-Itching Uncoded 12/17/23 15:42 Current Medications Generic Name Dose Route Start Last Admin Trade Name Freq PRN Reason Stop Dose Admin Hydrocodone Bitart/Acetaminophen 1 tab 12/17/23 20:32 12/17/23 22:17 Hydrocodone-Acetaminophen 7.5-325 Mg Tablet PO 1 tab Q4H PRN Administration pain Clonidine HCl 0.1 mg 12/17/23 21:00 12/18/23 09:36 Clonidine 0.1 Mg Tablet PO 0.1 mg TID AARTI Administration Gabapentin 300 mg 12/17/23 22:00 12/18/23 08:30 Gabapentin 300 Mg Capsule PO 300 mg 5XD AARTI Administration Vancomycin/PEG/NADA/Lysine/Water 1,250 mg in 250 mls @ 250 mls/hr 12/17/23 22:00 12/18/23 10:38 Vancocin IV Infused Q12H AARTI Infusion Sodium Chloride 1,000 mls @ 30 mls/hr 12/18/23 12:00 12/18/23 12:10 Sodium Chloride 0.9% IV 30 mls/hr .Q24H AARTI Administration Lorazepam 1 mg 12/17/23 20:32 12/18/23 11:29 Lorazepam 1 Mg Tablet PO 1 mg Q6H PRN Administration Anxiety Methadone HCl 30 mg 12/18/23 09:00 12/18/23 09:35 Methadone 10 Mg Tablet PO 30 mg DAILY AARTI Administration Methylphenidate HCl 20 mg 12/18/23 09:00 12/18/23 09:35 Methylphenidate 10 Mg Tablet PO 20 mg BID AARTI Administration Mirtazapine 15 mg 12/17/23 21:00 12/17/23 21:23 Mirtazapine 15 Mg Tablet PO 15 mg BEDTIME AARTI Administration Mupirocin 1 applic 12/18/23 09:00 12/18/23 09:39 Mupirocin Oint 22 Gm TOPICAL Not Given BID AARTI Nicotine 1 patch 12/17/23 20:32 12/17/23 21:25 Nicotine 14 Mg Patch TRANSDERMA Not Given Q24H [facility] Non-Formulary Medication 8 mg 12/17/23 21:00 12/18/23 08:28 Ondansetron PO 8 mg TID AARTI Administration Pantoprazole Sodium 40 mg 12/17/23 20:36 12/18/23 09:[address] 40 Mg Tablet PO 40 mg DAILY PRN Administration gerd PFSH Anesthesia Medical History History of drainage of abscess multiple Trauma in childhood Social anxiety disorder Femoral acetabular impingement Bleeding per rectum History of substance abuse Narcotic abuse Surgical History History of liver biopsy 2012 History of colonoscopy 2009 History of facial surgery 2013 No pertinent past surgical history Social History Smoking and tobacco/nicotine status: current every day tobacco/nicotine user cigarettes Packs smoked per day: 1 Years cigarettes smoked: 30 Quit status (tobacco/nicotine): has tried quititng Number of times tried to quit tobacco: 2 Second hand smoke exposure: Yes Alcohol intake: current Substance/Drug Use: current Substance/Drug use frequency: daily Other substance/drug use details: Fentanyl Current gender identity: Male Data Anesthesia 12/18/23 06:06 12/18/23 06:06 Short CBC 12/17/23 12/18/23 Range/Units 17:25 06:06 WBC 6.80 5.89 (3.29-11.43) 10^3/uL Hgb 9.70 L 10.00 L (11.27-16.99) g/dL Hct 30.9 L 31.9 L (37-53) % MCV 84.7 84.8 (82-101) fl Plt Count 323 291 (157-399) 10^3/cmm Neut % (Auto) 66.9 66.6 % Neut # (Auto) 4.54 3.92 (1.8-7.7) 10^3/uL BMP 12/17/23 12/18/23 17:25 06:06 Sodium 138 140 Potassium 4.2 3.9 Chloride 98 101 Carbon Dioxide 28 29 BUN 10 10 Creatinine 0.7 0.7 Glucose 98 126 H Calcium 8.7 8.7 Liver Function 12/17/23 12/18/23 Range/Units 17:25 06:06 Total Bilirubin 0.2 0.2 (0.15-1.2) mg/dL AST 29 23 (0-40) U/L ALT 30 26 (0-41) U/L Alkaline Phosphatase 123 114 (40-130) U/L Albumin 3.6 3.3 L (3.5-5.2) g/dL Blood Bank 12/18/23 07:48 Blood Type B Positive Rho(D) Type Rh positive Antibody Screen Negative Coa 12/17/23 17:25 PT 13.20 INR 0.97 APTT 31.0 Cardiac Studies: 2 Echocardiogram 08/04/23 Transesophageal Echocardiogram 10/16/23
[2023-12-18] MEDS: thrombin 5,000 unit SDV 5000 UNIT XX (13:54)
[2023-12-18] MEDS: vancomycin 1,000 MG SDV 1000 MG XX (13:56)
[2023-12-18] MEDS: lidocaine-epi 2% 20 mL INJ INJECTION (13:57)
[2023-12-18] MEDS: heparin, porcine 1,000 unit/mL INJ 10 mL 10000 UNIT IRRIGATION (14:03)
--- NOTE | 2023-12-18 16:33 | PM.OP ---
Operative Report Date of procedure: December 18, 2023 Pre-op diagnosis: Osteomyelitis with kyphotic deformity of the spine Post-op diagnosis: same Procedure done: 1. T10 and L4 posterior spine fusion 2. T10-L4 posterior spine instrumentation 3. Use of computer navigation stereotactic for the spine 4. Bone marrow aspirate from right iliac crest. Incision 5. Use of allograft Surgeon: Jacob Lopez DO Estimated blood loss (mL): 200 Procedure: 1. T10 and L4 posterior spine fusion 2. T10-L4 posterior spine instrumentation 3. Use of computer navigation stereotactic for the spine 4. Bone marrow aspirate from right iliac crest. Incision 5. Use of allograft Patient brought the operative suite after undergoing anesthesia was placed in the prone position. All his impingement well-padded patient's prepped and draped normal sterile fashion. Skin incision made from T10 down to L4. Subperiosteal dissection was made out to the transverse processes of T10 bilaterally all the way down to the L4 transverse processes bilaterally. Next tension was brought to obtain the bone marrow aspirate from the right iliac crest. This was done through a separate incision the [employer] cell bone marrow aspiration kit was used 20 cc of bone marrow aspirate were drawn from the right iliac crest this was mixed with the allograft bone graft that was later used in the case. Next tension was brought to attaching the computer navigation. This was done by placing 2 pins into the right iliac crest these pins were later removed at the end of the case. The fiducial was attached to these pins the C-arm was then brought in and spun around the patient. Information from serum was then linked to the computer for later used for placing pedicle screws. Pedicle screws were then placed this was done by using the computer navigated gearshift. Followed by the pedicle feeler. Followed by using the computer navigated screw placement. This was done at L4 bilaterally L 3 bilaterally, L2 was skipped due to the destruction of the body. This placed at the L1 vertebral body bilaterally. T12 bilaterally, T11 bilaterally, and T10 bilaterally. Wounds were then irrigated. And then attention was brought to decorticating the bone the lamina and TPs were done from T10 down to T12. The transverse processes of L1-L4 were decorticated. The allograft was packed into the lateral gutters. Deep drain was placed along with vancomycin powder wound was closed in layered fashion with 0 Vicryl and Monocryl. Sterile dressings were applied and patient was transferred to the PACU in stable condition.
--- NOTE | 2023-12-18 16:57 | PC.NURSE ---
1343 - oral airway removed per pt expelling - simple mask remains in place at 6L
--- NOTE | 2023-12-18 17:25 | ANE.PACU2 ---
Inpatient post-anesthesia follow up: Airway intact: Yes Vital signs: Temperature 97.5 F Pulse Rate 68 Respiratory Rate 18 Blood Pressure 187/107 Pulse Oximetry 100 Oxygen Delivery Me thod Room Air Oxygen Flow Rate 6 Fraction of Inspir ed Oxygen Hydration adequate: Yes Nausea and vomiting: No Pain level: 1 Mental status: Baseline
[2023-12-18] MEDS: ketorolac 30 mg/mL INJ IVP ×2 (17:38→22:18)
[2023-12-18] MEDS: HYDROmorphone 1 mg/mL INJ 1 mL 0.2 MG IVP ×2 (17:39→22:19)
[2023-12-18] MEDS: ceFAZolin 2,000 MG in sodium chloride 0.9% (plus) 50 ML 100 MG IV (18:35)
--- NOTE | 2023-12-18 19:06 | P.PN_ITS ---
Subjective 2 Subjective: No changes this morning. Being taken to OR. Vitals/I&O/Wt Last Vital Signs Temp 97.6 F 12/18/23 18:48 Pulse 62 12/18/23 18:48 Resp 16 12/18/23 18:48 BP 176/71 12/18/23 18:48 Pulse Ox 98 12/18/23 18:48 O2 Del Method Room Air 12/18/23 17:27 O2 Flow Rate 6 12/18/23 17:07 12/18/23 12/18/23 12/18/23 06:59 14:59 22:59 Intake Total 250 / 250 890 / 1140 Output Total 400 / 400 Balance 250 / 250 490 / 740 Weight last 48 hrs Weight 78.744 kg Weight 78.744 kg Weight 81.193 kg Physical Exam 2 Narrative: Accompanied by his guardian. Const: COMMON NORMALS: patient oriented x3 and alert GENERAL APPEARANCE: c ooperative ORIENTATION/CONSCIOUSNESS: Yes awake HENMT: COMMON NORMALS: oropharynx normal Neck/C-Spine: COMMON NORMALS: no JVD Resp: COMMON NORMALS: normal respiratory effort and clear to auscultation bilaterally AUSCULTATION: clear to auscultation bilaterally Cardio: COMMON NORMALS: no JVD, regular rhythm, S1 normal heart sound present, S2 normal heart sound present and No murmurs present (Cardio) RHYTHM: regular rhythm HEART SOUNDS: S1 normal heart sound present and S2 normal heart sound present GI: COMMON NORMALS: Normal to inspection, nondistended, normoactive bowel sounds present, Soft to palpation and non-tender PALPATION: Yes Soft to palpation Extremity: COMMON NORMALS: no joint enlargement and no pedal edema Neuro: COMMON NORMALS: patient oriented x3 and moves all extremities S ENSORIUM/ORIENTATION: Yes alert Skin: COMMON NORMALS: no rashes or lesions noted GENERAL SKIN EXAM: no rashes or lesions noted Urinary Catheter Management: Mcghee: Cath Placed During This Visit: yes Urinary Catheter Date of Insertion: 12/18/23 Urinary Catheter Time of Insertion: 13:20 Data 12/18/23 06:06 12/18/23 06:06 A&P Assessment and plan (1) Lumbar vertebral collapse: Reviewed vital signs, CBC, BMP, orthopedic surgery consultation note. Discussed with patient and guardian. Discussed with nurse case manager. Going to the OR for spine stabilization/fusion. Continue postoperative care. For now continue vancomycin.At risk of renal dysfunction. Reassess chemistry. L1/2 distraction and collapse, worsening symptoms, worse pain, paresthesia, decrease sensation right lower extremity, change in urinary and bowel habits, reports some groin numbness as well. Concern for progression to cauda equina syndrome in addition to nerve root impingement. At this point surgery has been consulted, requests to be n.p.o. and description of surgery in the morning. He otherwise has been in baseline state of health. Denies cardiac or respiratory issues. On methadone. Last time taking this morning, 60 mg dose. Continue in the morning with 30 mg until can be confirmed. Will need to follow-up with infectious disease. Continue acetaminophen, Bactrim, hydrocodone as needed for pain, methadone. IV Dilaudid as needed for severe breakthrough. Narcan as needed in case of respiratory depression. Plan Smoking disorder: Requested nicotine patch, nicotine lozenges. History of substance use On methadone: Reviewed methadone prescription, restarted 30 mg twice daily. Hepatitis C: Treatment has been on positive, he is to follow-up with infectious disease and resume treatment after current condition is addressed. Attestations 2 Medical Necessity Statement*: Continue admission for assessment management of vertebral collapse, cauda equina syndrome angioma with history of vertebral osteomyelitis. and High MDM includes amount and/or complexity of data reviewed/ordered [ previous or external records, resulted lab(s)/test(s), ordered lab(s)/test(s) and other healthcare professional discussion] and described risk of complication, morbidity or mortality of management as documented Diagnoses Lumbar vertebral collapse M48.56XA
[2023-12-18] MEDS: LORazepam 1 mg Tablet PO (19:34)
[2023-12-18] MEDS: HYDROcodone-acetaminophen 7.5-325 mg Tablet 1 TAB PO (21:05)
[2023-12-18] MEDS: mirtazapine 15 mg Tablet PO (21:05)
[2023-12-18] MEDS: baclofen 10 mg Tablet PO (21:06)
--- NOTE | 2023-12-18 21:38 | PC.NURSE ---
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 patient talked through process of removal. patient tolerated well.
[2023-12-18] MEDS: oxyCODONE 5 mg IR Tab/Cap 10 MG PO (23:45)
[2023-12-19] VITALS (11 sets, daily range): BP systolic 101–148; BP diastolic 64–81; PULSE 59–112; RESP 14–18; TEMP 36.4–37.4; O2SAT 93–97
[2023-12-19] MEDS: vancomycin 1,250 MG/250 ML PIGGYBACK 250 MG IV ×2 (00:49→12:46)
--- NOTE | 2023-12-19 00:56 | PC.NURSE ---
accessed PIV at 2218 to administer pain medication, IV flushed fine with no pain per pt. at 2235 rewriter came back to hang vancomycin as ordered, when IV was flushed the patient c/o pain at IV site. pt wanted IV removed. 6 attempts were made by 3 nurses, no success. pt refused further attemptes at that time knowing abx were going to be late, stating I'm about to lose my shit. I need a break. I want an ultrasound one only. charge nurse called to see if someone was on shift able to do ultrasound. ER nurse came to the floor at 0020 and was successful at placing an IV at 0045. abx hung immediately and pharmacy called.
--- NOTE | 2023-12-19 03:28 | PC.NURSE ---
US guided IV infiltrated with completion of abx. night hospitalist asked if picc could be ordered in consideration of patient's poor veins and hx, and pt having picc last admission. dr declined and deferred to day team. did give telephone order for attempt at foot IV if viable placement was seen.
[2023-12-19] MEDS: gabapentin 300 mg Capsule PO ×4 (05:14→20:11)
[2023-12-19] MEDS: oxyCODONE 5 mg IR Tab/Cap 10 MG PO ×2 (05:39→14:59)
[2023-12-19] MEDS: baclofen 10 mg Tablet PO ×3 (05:39→23:28)
[2023-12-19] MEDS: LORazepam 1 mg Tablet PO (05:39)
--- NOTE | 2023-12-19 07:14 | PC.NURSE ---
ticket writer came to the patient room and spoke to patient about concern over no voiding over night. caregiver was in the room and agreed that he had not voided overnight and thought it was a good idea to attempt. ticket writer asked patient if he felt like he could void. patient said yes, ticket writer informed patient of assistance with the urinal if that was ok and the patient agreed. ticket writer applied gloves, picked up the urinal and placed it under the blanket placing the tip of the patient into the urinal. the patient yelled out what the hell do you think you're doing, you can't just touch me and not give me a heads up . both ticket writer and caregiver attempted to explain to the patient that conversation had transpired in which he had agreed to which he stated he had no recollection of. caregiver explained that post surgery patient has some memory issues and continues to discuss the issue with the patient, attempting to explain that she had been there the entire time and had heard and seen the whole thing. ticket writer asked caregiver to assist the patient to attempt to void to ensure that the patient was not retaining. patient would not void. ticket writer asked if bladder scan could be done as it was non invasive, caregiver stated that was reasonable, to which the patient replied I'm not fucking doing that . will continue to monitor patient.
[2023-12-19] MEDS: methylphenidate 10 mg Tablet 20 MG PO ×2 (08:18→17:33)
[2023-12-19] MEDS: methadone 10 mg Tablet 30 MG PO ×2 (08:19→17:33)
[2023-12-19] MEDS: docusate sodium 100 mg Capsule PO ×2 (08:19→17:34)
[2023-12-19] MEDS: oxyCODONE 10 mg ER (12 HR) Tablet PO ×2 (08:20→17:39)
[2023-12-19] MEDS: cloNIDine 0.1 mg Tablet PO ×3 (08:20→20:11)
[2023-12-19] MEDS: HYDROcodone-acetaminophen 7.5-325 mg Tablet 1 TAB PO ×3 (08:20→23:28)
--- NOTE | 2023-12-19 10:18 | PC.NURSE ---
Addendum entered by Lauro Mcgowan RN 12/19/23 21:02: LUE was used not the RUE. Original Note: Consent obtained by myself and neonatal critical care nurse. All risk and benefits discussed. Risk included but not limited to dvt and infection. RUE scanned with US and brachial vein was the best option. Vein was straight, free of visible clot. and 3.2 mm. Pt draped in sterile fashion. Using real time US, lidocaine injected, vein accessed, and midline floated into position. EBL less then 5 ml. No bleeding no hemaotoma. Pt arm circumference at 10 cm above the ac fossa is 32 cm.
[2023-12-19] MEDS: ketorolac 30 mg/mL INJ IVP ×2 (10:23→17:35)
[2023-12-19] MEDS: ceFAZolin 2,000 MG in sodium chloride 0.9% (plus) 50 ML 100 MG IV (10:23)
[2023-12-19] MEDS: HYDROmorphone 1 mg/mL INJ 1 mL 0.2 MG IVP ×2 (10:23→14:59)
--- NOTE | 2023-12-19 10:56 | P.PN_ITS ---
Subjective 2 Subjective: Patient is resting complaint bed. Vitals/I&O/Wt Last Vital Signs Temp 97.8 F 12/19/23 07:28 Pulse 60 12/19/23 07:28 Resp 14 12/19/23 07:28 BP 143/79 12/19/23 08:20 Pulse Ox 96 12/19/23 07:28 O2 Del Method Room Air 12/19/23 07:28 O2 Flow Rate 6 12/18/23 17:07 12/18/23 12/19/23 12/19/23 22:59 06:59 14:59 Intake Total 1180 / 1430 645 / 2075 240 / 240 Output Total 1050 / 1050 200 / 1250 500 / 500 Balance 130 / 380 445 / 825 -260 / -260 Weight last 48 hrs Weight 173 lb 9.6 oz Weight 173 lb 9.6 oz Weight 173 lb 9.6 oz Weight 179 lb Physical Exam 2 Narrative: Resting comfortably bed cannot get exam. Urinary Catheter Management: Mcghee: Cath Placed During This Visit: yes, but has since been removed by the nurse Reason for Continuing Indwelling Catheter: Decision to DC Catheter Urinary Catheter Date of Insertion: 12/18/23 Urinary Catheter Time of Insertion: 13:20 Date Urinary Catheter Removed: 12/18/23 Time Urinary Catheter Discontinued: 21:38 Data 12/18/23 06:06 12/18/23 06:06 A&P Assessment and plan (1) Status post lumbar spinal fusion: Postop day #1 T10-L4 posterior spine fusion. Encourage physical therapy, pain control. Attestations 2 Medical Necessity Statement*: Pain control Coding Level of Care Code Acute Code for Chg Fwd Diagnoses Status post lumbar spinal fusion Z98.1
[2023-12-19 12:05] LABS: Basophils % 0.2 %; Eosinophils % 0.2 %; Hematocrit 28.9 % (37-53); Lymphocytes # 1.2 10^3/uL (0.8-4.8); Lymphocytes % 9.7 %; Mean Corpuscular HGB Conc 31.8 g/dL (30-55); Mean Corpuscular Hemoglobin 26.6 pg (27-33); Mean Corpuscular Volume 83.5 fl (82-101); Mean Platelet Volume 8.8 fL (7.4-10.4); Monocytes # 0.9 10^3/uL (0.2-0.9); Monocytes % 7.4 %; Neutrophils # 10.41 10^3/uL (1.8-7.7); Neutrophils % 82.2 %; Nucleated Red Blood Cells % 0 %; Platelet Count 350 10^3/cmm (157-399); Red Blood Count 3.46 10^6/uL (3.85-5.65); Red Cell Distribution Width 13.6 % (12.1-15.1); White Blood Count 12.66 10^3/uL (3.29-11.43)
[2023-12-19 12:30] LABS: Alanine Aminotransferase 21 U/L (0-41); Albumin Level 3.1 g/dL (3.5-5.2); Alkaline Phosphatase 103 U/L (40-130); Anion Gap 13.3 (5-19); Aspartate Amino Transferase 25 U/L (0-40); Blood Urea Nitrogen 19 mg/dL (6-20); Calcium 8.8 mg/dL (8.5-10.5); Carbon Dioxide 28 mmol/L (22-29); Chloride 98 mmol/L (98-107); Globulin 3.5 g/dL (1.3-4.6); Glomerular Filtration Rate 79.4 mL/min (90-130); Glucose 112 mg/dL (65-115); Osmolality Calculated 283 mOsm/kg (285-295); Potassium 4.3 mmol/L (3.5-5.1); Sodium 135 mmol/L (136-145); Total Bilirubin 0.2 mg/dL (0.15-1.2); Total Protein 6.6 g/dL (6.6-8.7)
[2023-12-19] MEDS: ondansetron 2 mg/ML SDV 2 mL 4 MG IVP (20:11)
[2023-12-19] MEDS: mirtazapine 15 mg Tablet PO (20:11)
--- NOTE | 2023-12-19 22:17 | P.PN_ITS ---
Subjective 2 Subjective: He has been having some difficulties with pain control. Currently resting. Vitals/I&O/Wt Last Vital Signs Temp 99.3 F 12/19/23 19:30 Pulse 76 12/19/23 19:30 Resp 18 12/19/23 19:30 BP 114/66 12/19/23 20:11 Pulse Ox 97 12/19/23 19:30 O2 Del Method Room Air 12/19/23 16:00 O2 Flow Rate 6 12/18/23 17:07 12/19/23 12/19/23 12/19/23 06:59 14:59 22:59 Intake Total 645 / 2075 780 / 780 360 / 1140 Output Total 200 / 1250 500 / 500 15 / 515 Balance 445 / 825 280 / 280 345 / 625 Weight last 48 hrs Weight 78.744 kg Weight 78.744 kg Physical Exam 2 Narrative: Accompanied by his guardian. Const: GENERAL APPEARANCE: cooperative OTHER: Asleep, wakes up briefly to voice, falls back asleep. HENMT: COMMON NORMALS: oropharynx normal Neck/C-Spine: COMMON NORMALS: no JVD Resp: COMMON NORMALS: normal respiratory effort and clear to auscultation bilaterally AUSCULTATION: clear to auscultation bilaterally Cardio: COMMON NORMALS: no JVD, regular rhythm, S1 normal heart sound present, S2 normal heart sound present and No murmurs present (Cardio) RHYTHM: regular rhythm HEART SOUNDS: S1 normal heart sound present and S2 normal heart sound present GI: COMMON NORMALS: Normal to inspection, nondistended, normoactive bowel sounds present, Soft to palpation and non-tender PALPATION: Yes Soft to palpation Extremity: COMMON NORMALS: no joint enlargement and no pedal edema Neuro: COMMON NORMALS: moves all extremities Skin: COMMON NORMALS: no rashes or lesions noted GENERAL SKIN EXAM: no rashes or lesions noted Urinary Catheter Management: Mcghee: Cath Placed During This Visit: yes, but has since been removed by the nurse Reason for Continuing Indwelling Catheter: Decision to DC Catheter Urinary Catheter Date of Insertion: 12/18/23 Urinary Catheter Time of Insertion: 13:20 Date Urinary Catheter Removed: 12/18/23 Time Urinary Catheter Discontinued: 21:38 Data 12/19/23 11:50 12/19/23 11:50 A&P Assessment and plan (1) Lumbar vertebral collapse: Status post spine stabilization/fusion. Been having difficulties with pain control. Requiring IV opioids in addition to Toradol, oxycodone, as well as usual medications with gabapentin, methadone. Somnolent. Discussed risks with opioid treatment. Continue to optimize pain control. Requested continuous O2 monitoring. Naloxone if respiratory depression.Discussed with his guardian. Add bowel regimen. Continue postoperative care. For now continue vancomycin.At risk of renal dysfunction. Reassess chemistry. L1/2 destruction and collapse, worsening symptoms, worse pain, paresthesia, decrease sensation right lower extremity, change in urinary and bowel habits, reports some groin numbness as well. Concern for progression to cauda equina syndrome in addition to nerve root impingement. At this point surgery has been consulted, requests to be n.p.o. and description of surgery in the morning. He otherwise has been in baseline state of health. Denies cardiac or respiratory issues. On methadone. Last time taking this morning, 60 mg dose. Continue in the morning with 30 mg until can be confirmed. Will need to follow-up with infectious disease. Continue acetaminophen, Bactrim, hydrocodone as needed for pain, methadone. IV Dilaudid as needed for severe breakthrough. Narcan as needed in case of respiratory depression. DVT prophylaxis once safe per orthopedics. Reviewed orthopedic note. Discussed with physical therapist. Plan Anemia: Reviewed CBC, noted anemia, hemoglobin 9.2. Postoperative. Reassess. Smoking disorder: nicotine patch, nicotine lozenges. History of substance use On methadone: 30 mg twice daily. Hepatitis C: Treatment has been on positive, he is to follow-up with infectious disease and resume treatment after current condition is addressed. Attestations 2 Medical Necessity Statement*: Continue admission for assessment management of vertebral collapse, cauda equina syndrome angioma with history of vertebral osteomyelitis. and High MDM includes amount and/or complexity of data reviewed/ordered [ previous or external records, resulted lab(s)/test(s), ordered lab(s)/test(s) and other healthcare professional discussion] and described risk of complication, morbidity or mortality of management as documented Diagnoses Lumbar vertebral collapse M48.56XA
[2023-12-20] VITALS (12 sets, daily range): BP systolic 118–143; BP diastolic 74–90; PULSE 69–81; RESP 15–18; TEMP 36.4–37.2; O2SAT 92–98
[2023-12-20] MEDS: HYDROmorphone 1 mg/mL INJ 1 mL 0.2 MG IVP ×2 (00:49→04:52)
[2023-12-20] MEDS: vancomycin 1,250 MG/250 ML PIGGYBACK 250 MG IV ×2 (00:51→13:24)
--- NOTE | 2023-12-20 01:16 | PC.NURSE ---
Pt's caregiver requesting pain medication for pt. Pt is somnolent, but able to provide that his back pain is 8/10 at this time. Dilaudid administered per orders. Pt con't to fall asleep during administration. An hour prior to Dilaudid administration pt's caregiver stated it was time for pt to receive pain medication. Pt was asleep at that time, and this nurse explained to the pt's caregiver that we don't wake pts for PRN pain medications. However the caregiver woke the patient and then he stated he was in pain prior to falling back asleep, hydro/apap and baclofen was administered at that time. Pain management continues.
[2023-12-20] MEDS: oxyCODONE 5 mg IR Tab/Cap 10 MG PO (03:13)
[2023-12-20] MEDS: HYDROcodone-acetaminophen 7.5-325 mg Tablet 1 TAB PO ×4 (04:35→20:22)
[2023-12-20] MEDS: LORazepam 1 mg Tablet PO ×3 (04:38→20:23)
[2023-12-20 05:37] LABS: Basophils % 0.2 %; Eosinophils # 0.2 10^3/uL (0.0-0.8); Eosinophils % 2.2 %; Hematocrit 28.4 % (37-53); Lymphocytes # 1.3 10^3/uL (0.8-4.8); Lymphocytes % 14.6 %; Mean Corpuscular Hemoglobin 26.5 pg (27-33); Mean Corpuscular Volume 85.5 fl (82-101); Mean Platelet Volume 8.5 fL (7.4-10.4); Monocytes # 0.7 10^3/uL (0.2-0.9); Monocytes % 8.1 %; Neutrophils # 6.49 10^3/uL (1.8-7.7); Neutrophils % 74.2 %; Nucleated Red Blood Cells % 0 %; Platelet Count 330 10^3/cmm (157-399); Red Blood Count 3.32 10^6/uL (3.85-5.65); Red Cell Distribution Width 13.8 % (12.1-15.1); White Blood Count 8.75 10^3/uL (3.29-11.43)
[2023-12-20 06:04] LABS: Alanine Aminotransferase 18 U/L (0-41); Albumin Level 2.9 g/dL (3.5-5.2); Alkaline Phosphatase 102 U/L (40-130); Anion Gap 10.8 (5-19); Aspartate Amino Transferase 21 U/L (0-40); Blood Urea Nitrogen 18 mg/dL (6-20); Carbon Dioxide 26 mmol/L (22-29); Chloride 102 mmol/L (98-107); Globulin 3.4 g/dL (1.3-4.6); Glomerular Filtration Rate 89.7 mL/min (90-130); Glucose 145 mg/dL (65-115); Osmolality Calculated 284 mOsm/kg (285-295); Potassium 3.8 mmol/L (3.5-5.1); Sodium 135 mmol/L (136-145); Total Bilirubin 0.2 mg/dL (0.15-1.2); Total Protein 6.3 g/dL (6.6-8.7)
[2023-12-20] MEDS: baclofen 10 mg Tablet PO ×3 (08:22→20:30)
[2023-12-20] MEDS: docusate sodium 100 mg Capsule PO ×2 (08:22→17:24)
[2023-12-20] MEDS: methadone 10 mg Tablet 30 MG PO ×2 (08:22→17:23)
[2023-12-20] MEDS: gabapentin 300 mg Capsule PO ×3 (08:22→20:23)
[2023-12-20] MEDS: nicotine 14 mg Patch 1 PATCH TRANSDERMA (08:23)
[2023-12-20] MEDS: cloNIDine 0.1 mg Tablet PO ×3 (08:23→20:23)
[2023-12-20] MEDS: oxyCODONE 10 mg ER (12 HR) Tablet PO ×2 (08:23→17:25)
[2023-12-20] MEDS: methylphenidate 10 mg Tablet 20 MG PO ×2 (08:28→17:24)
--- NOTE | 2023-12-20 10:59 | P.PN_ITS ---
Subjective 2 Subjective: Patient asleep in the room when I walked in when I woke him up he said he was in pain discussed with nurses they feel like he is overmedicated from a pain control standpoint. Vitals/I&O/Wt Last Vital Signs Temp 98.6 F 12/20/23 07:51 Pulse 70 12/20/23 07:51 Resp 15 12/20/23 07:51 BP 142/83 12/20/23 08:23 Pulse Ox 96 12/20/23 07:51 O2 Del Method Room Air 12/20/23 07:51 O2 Flow Rate 6 12/18/23 17:07 12/19/23 12/20/23 12/20/23 22:59 06:59 14:59 Intake Total 360 / 1140 250 / 1390 240 / 240 Output Total 15 / 515 400 / 915 Balance 345 / 625 -150 / 475 240 / 240 Weight last 48 hrs Weight 173 lb 9.6 oz Weight 173 lb 9.6 oz Physical Exam 2 Narrative: Drain has minimal output incision clean dry and intact Urinary Catheter Management: Mcghee: Cath Placed During This Visit: yes, but has since been removed by the nurse Reason for Continuing Indwelling Catheter: Decision to DC Catheter Urinary Catheter Date of Insertion: 12/18/23 Urinary Catheter Time of Insertion: 13:20 Date Urinary Catheter Removed: 12/18/23 Time Urinary Catheter Discontinued: 21:38 Data 12/20/23 04:54 12/20/23 04:54 A&P Assessment and plan (1) Status post lumbar spinal fusion: Postop day 2 thoracolumbar fusion. Will cut back on his pain meds. DC drain Attestations 2 Medical Necessity Statement*: Pain control Coding Level of Care Code Acute Code for Chg Fwd Diagnoses Status post lumbar spinal fusion Z98.1
--- NOTE | 2023-12-20 11:18 | P.PN_ITS ---
Subjective 2 Subjective: Bothered by back pain. Moaning in discomfort. Vitals/I&O/Wt Last Vital Signs Temp 98.6 F 12/20/23 07:51 Pulse 70 12/20/23 07:51 Resp 15 12/20/23 07:51 BP 142/83 12/20/23 08:23 Pulse Ox 96 12/20/23 07:51 O2 Del Method Room Air 12/20/23 07:51 O2 Flow Rate 6 12/18/23 17:07 12/19/23 12/20/23 12/20/23 22:59 06:59 14:59 Intake Total 360 / 1140 250 / 1390 240 / 240 Output Total 15 / 515 400 / 915 Balance 345 / 625 -150 / 475 240 / 240 Weight last 48 hrs Weight 78.744 kg Weight 78.744 kg Physical Exam 2 Narrative: Accompanied by his guardian. Const: COMMON NORMALS: patient oriented x3 and alert GENERAL APPEARANCE: c ooperative ORIENTATION/CONSCIOUSNESS: Yes awake HENMT: COMMON NORMALS: oropharynx normal Neck/C-Spine: COMMON NORMALS: no JVD Resp: COMMON NORMALS: normal respiratory effort and clear to auscultation bilaterally AUSCULTATION: clear to auscultation bilaterally Cardio: COMMON NORMALS: no JVD, regular rhythm, S1 normal heart sound present, S2 normal heart sound present and No murmurs present (Cardio) RHYTHM: regular rhythm HEART SOUNDS: S1 normal heart sound present and S2 normal heart sound present GI: COMMON NORMALS: Normal to inspection, nondistended, normoactive bowel sounds present, Soft to palpation and non-tender PALPATION: Yes Soft to palpation Extremity: COMMON NORMALS: no joint enlargement and no pedal edema OTHER: Moves bilateral lower extremities. Neuro: COMMON NORMALS: patient oriented x3 and moves all extremities S ENSORIUM/ORIENTATION: Yes alert Skin: COMMON NORMALS: no rashes or lesions noted GENERAL SKIN EXAM: no rashes or lesions noted Urinary Catheter Management: Mcghee: Cath Placed During This Visit: yes, but has since been removed by the nurse Reason for Continuing Indwelling Catheter: Decision to DC Catheter Urinary Catheter Date of Insertion: 12/18/23 Urinary Catheter Time of Insertion: 13:20 Date Urinary Catheter Removed: 12/18/23 Time Urinary Catheter Discontinued: 21:38 Data 12/20/23 04:54 12/20/23 04:54 A&P Assessment and plan (1) Lumbar vertebral collapse: Status post spine stabilization/fusion. Bothered by back pain. Difficulties with pain management with reported episodes of lethargy, other times and pain. Will resume Toradol. Renew methadone, hydrocodone with Tylenol. Dilaudid as she has been discontinued. Continue oxycodone ER. Monitor for respiratory suppression with risk. Naloxone as needed. Added bowel regimen. He had a bowel movement last night. Continue postoperative care. For now continue vancomycin. Reviewed BUN, creatinine, 18, 0.9 respectively. Electrolytes okay. At risk of renal dysfunction. Reassess chemistry. Reviewed CBC, with postoperative anemia, hemoglobin 8.8. Reviewed ortho note. Drain is being DC'd. Reaching out to ortho regarding considerations around DVT prophylaxis - please check again in the morning. L1/2 destruction and collapse, worsening symptoms, worse pain, paresthesia, decrease sensation right lower extremity, change in urinary and bowel habits, reports some groin numbness as well. Concern for progression to cauda equina syndrome in addition to nerve root impingement. At this point surgery has been consulted, requests to be n.p.o. and description of surgery in the morning. He otherwise has been in baseline state of health. Denies cardiac or respiratory issues. On methadone. Last time taking this morning, 60 mg dose. Continue in the morning with 30 mg until can be confirmed. Follow-up with infectious disease. Continue acetaminophen, Bactrim, hydrocodone as needed for pain, methadone. IV Dilaudid as needed for severe breakthrough. Narcan as needed in case of respiratory depression. DVT prophylaxis once safe per orthopedics. Reviewed orthopedic note. Plan Anemia: Reviewed CBC, noted anemia, hemoglobin 8.8. Postoperative. Reassess. Smoking disorder: nicotine patch, nicotine lozenges. History of substance use On methadone: 30 mg twice daily. Hepatitis C: Treatment has been on positive, he is to follow-up with infectious disease and resume treatment after current condition is addressed. Attestations 2 Medical Necessity Statement*: Continue admission for assessment management of difficult to control pain, vertebral collapse, cauda equina syndrome angioma with history of vertebral osteomyelitis. and High MDM includes described risk of complication, morbidity or mortality of management as documented Diagnoses Lumbar vertebral collapse M48.56XA
[2023-12-20] MEDS: ketorolac 30 mg/mL INJ IVP ×3 (11:27→23:22)
[2023-12-20 12:43] LABS: Vancomycin Trough 16.4 ug/mL (10-15)
[2023-12-20] MEDS: mirtazapine 15 mg Tablet PO (20:22)
[2023-12-21] VITALS (8 sets, daily range): BP systolic 118–165; BP diastolic 75–89; PULSE 61–80; RESP 16–18; TEMP 36.7–37.1; O2SAT 95–98
[2023-12-21] MEDS: vancomycin 1,250 MG/250 ML PIGGYBACK 250 MG IV ×2 (01:20→14:22)
[2023-12-21] MEDS: HYDROcodone-acetaminophen 7.5-325 mg Tablet 1 TAB PO ×5 (01:21→22:24)
[2023-12-21 05:20] LABS: Basophils % 0.4 %; Eosinophils # 0.3 10^3/uL (0.0-0.8); Eosinophils % 4.2 %; Hematocrit 27.7 % (37-53); Lymphocytes # 1.2 10^3/uL (0.8-4.8); Lymphocytes % 16.3 %; Mean Corpuscular Hemoglobin 26.6 pg (27-33); Mean Corpuscular Volume 85.8 fl (82-101); Mean Platelet Volume 8.8 fL (7.4-10.4); Monocytes # 0.6 10^3/uL (0.2-0.9); Monocytes % 8.1 %; Neutrophils # 5.07 10^3/uL (1.8-7.7); Neutrophils % 70.3 %; Nucleated Red Blood Cells % 0 %; Platelet Count 293 10^3/cmm (157-399); Red Blood Count 3.23 10^6/uL (3.85-5.65); Red Cell Distribution Width 13.5 % (12.1-15.1)
[2023-12-21] MEDS: baclofen 10 mg Tablet PO ×2 (05:28→17:31)
[2023-12-21] MEDS: ketorolac 30 mg/mL INJ IVP ×4 (05:28→23:29)
[2023-12-21 05:36] LABS: Anion Gap 12.4 (5-19); Blood Urea Nitrogen 14 mg/dL (6-20); Carbon Dioxide 26 mmol/L (22-29); Chloride 104 mmol/L (98-107); Glomerular Filtration Rate 102.7 mL/min (90-130); Glucose 156 mg/dL (65-115); Osmolality Calculated 292 mOsm/kg (285-295); Potassium 3.4 mmol/L (3.5-5.1); Sodium 139 mmol/L (136-145)
--- NOTE | 2023-12-21 07:00 | P.PN_ITS ---
Subjective 2 Subjective: Patient still continuing to complain of pain however he is moving better in bed. Vitals/I&O/Wt Last Vital Signs Temp 98.6 F 12/21/23 00:00 Pulse 80 12/21/23 05:00 Resp 18 12/21/23 05:00 BP 150/81 12/21/23 05:00 Pulse Ox 98 12/21/23 05:00 O2 Del Method Room Air 12/20/23 15:57 O2 Flow Rate 6 12/18/23 17:07 12/20/23 12/21/23 12/21/23 22:59 06:59 14:59 Intake Total 240 / 970 250 / 1220 Output Total 450 / 450 Balance -210 / 520 250 / 770 Weight last 48 hrs Weight 173 lb 9.6 oz Weight 173 lb 9.6 oz Physical Exam 2 Narrative: Able to move in bed leg pain is improved walking with physical therapy doing well Urinary Catheter Management: Mcghee: Cath Placed During This Visit: yes, but has since been removed by the nurse Reason for Continuing Indwelling Catheter: Decision to DC Catheter Urinary Catheter Date of Insertion: 12/18/23 Urinary Catheter Time of Insertion: 13:20 Date Urinary Catheter Removed: 12/18/23 Time Urinary Catheter Discontinued: 21:38 Data 12/21/23 05:02 12/21/23 05:02 A&P Assessment and plan (1) Status post lumbar spinal fusion: Postop day 3 T10-L4 posterior spine fusion Discharge planning Attestations 2 Medical Necessity Statement*: Per primary service Coding Level of Care Code Acute Code for Chg Fwd Diagnoses Status post lumbar spinal fusion Z98.1
[2023-12-21] MEDS: nicotine 14 mg Patch 1 PATCH TRANSDERMA (08:35)
[2023-12-21] MEDS: methadone 10 mg Tablet 30 MG PO ×2 (08:35→17:32)
[2023-12-21] MEDS: oxyCODONE 10 mg ER (12 HR) Tablet PO (08:35)
[2023-12-21] MEDS: docusate sodium 100 mg Capsule PO ×2 (08:35→17:32)
[2023-12-21] MEDS: gabapentin 300 mg Capsule PO ×3 (08:36→20:15)
[2023-12-21] MEDS: cloNIDine 0.1 mg Tablet PO ×3 (08:36→20:15)
[2023-12-21] MEDS: methylphenidate 10 mg Tablet 20 MG PO ×2 (08:42→17:31)
[2023-12-21] MEDS: fentaNYL 25 mcg Patch 1 PATCH TRANSDERMA (14:22)
[2023-12-21] MEDS: morphine 4 mg/mL SDV 1 mL 2 MG IVP (14:23)
--- NOTE | 2023-12-21 16:46 | PM.PN ---
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: Hospital course, labs appreciated. No acute events overnight. Seen with the caregiver at bedside. Again complaining of extensive pain. Caregiver discussed in detail regarding plan for pain management does not outpatient and while during hospitalization. Patient is laying in bed, moaning with each repositioning of self in bed. Did walk with physical therapy up to 75 feet today. Otherwise has remained hemodynamically stable and afebrile. Vitals/I&O/Wt Last Vital Signs Temp 98.0 F 12/21/23 16:17 Pulse 65 12/21/23 16:17 Resp 18 12/21/23 16:17 BP 120/76 12/21/23 16:17 Pulse Ox 96 12/21/23 16:17 O2 Del Method Room Air 12/21/23 16:17 O2 Flow Rate 6 12/18/23 17:07 12/21/23 12/21/23 12/21/23 06:59 14:59 22:59 Intake Total 250 / 1220 720 / 720 250 / 970 Balance 250 / 770 720 / 720 250 / 970 Weight last 48 hrs Weight 78.744 kg Weight 78.744 kg Physical Exam Narrative: Accompanied by his guardian. Const: COMMON NORMALS: patient oriented x3 and alert GENERAL APPEARANCE: cooperative ORIENTATION/CONSCIOUSNESS: Yes awake OTHER: Asleep, wakes up briefly to voice, falls back asleep. HENMT: COMMON NORMALS: oropharynx normal Neck/C-Spine: COMMON NORMALS: no JVD Resp: COMMON NORMALS: normal respiratory effort and clear to auscultation bilaterally AUSCULTATION: clear to auscultation bilaterally Cardio: COMMON NORMALS: no JVD, regular rhythm, S1 normal heart sound present, S2 normal heart sound present and No murmurs present (Cardio) RHYTHM: regular rhythm HEART SOUNDS: S1 normal heart sound present and S2 normal heart sound present GI: COMMON NORMALS: Normal to inspection, nondistended, normoactive bowel sounds present, Soft to palpation and non-tender PALPATION: Yes Soft to palpation Extremity: COMMON NORMALS: no joint enlargement and no pedal edema OTHER: Moves bilateral lower extremities. Neuro: COMMON NORMALS: patient oriented x3 and moves all extremities SENSORIUM/ORIENTATION: Yes alert Skin: COMMON NORMALS: no rashes or lesions noted GENERAL SKIN EXAM: no rashes or lesions noted Urinary Catheter Management: Mcghee: Cath Placed During This Visit: yes, but has since been removed by the nurse Reason for Continuing Indwelling Catheter: Decision to DC Catheter Urinary Catheter Date of Insertion: 12/18/23 Urinary Catheter Time of Insertion: 13:20 Date Urinary Catheter Removed: 12/18/23 Time Urinary Catheter Discontinued: 21:38 Data 12/21/23 05:02 12/21/23 05:02 A&P Assessment and plan (1) Lumbar vertebral collapse: Status post spine stabilization/fusion. Bothered by back pain. Difficulties with pain management with reported episodes of lethargy, other times and pain. Will resume Toradol. Renew methadone, hydrocodone with Tylenol. Dilaudid as she has been discontinued. Continue oxycodone ER. Monitor for respiratory suppression with risk. Naloxone as needed. Added bowel regimen. He had a bowel movement last night. Continue postoperative care. For now continue vancomycin. Reviewed BUN, creatinine, 18, 0.9 respectively. Electrolytes okay. At risk of renal dysfunction. Reassess chemistry. Reviewed CBC, with postoperative anemia, hemoglobin 8.8. Reviewed ortho note. Drain is being DC'd. Reaching out to ortho regarding considerations around DVT prophylaxis - please check again in the morning. L1/2 destruction and collapse, worsening symptoms, worse pain, paresthesia, decrease sensation right lower extremity, change in urinary and bowel habits, reports some groin numbness as well. Concern for progression to cauda equina syndrome in addition to nerve root impingement. At this point surgery has been consulted, requests to be n.p.o. and description of surgery in the morning. He otherwise has been in baseline state of health. Denies cardiac or respiratory issues. On methadone. Last time taking this morning, 60 mg dose. Continue in the morning with 30 mg until can be confirmed. Follow-up with infectious disease. Continue acetaminophen, Bactrim, hydrocodone as needed for pain, methadone. IV Dilaudid as needed for severe breakthrough. Narcan as needed in case of respiratory depression. DVT prophylaxis once safe per orthopedics. Reviewed orthopedic note. Plan Anemia: Reviewed CBC, noted anemia, hemoglobin 8.8. Postoperative. Reassess. Smoking disorder: nicotine patch, nicotine lozenges. History of substance use On methadone: 30 mg twice daily. Hepatitis C: Currently he is off treatment because of nausea and vomiting. Would like to start further plans able to tolerate p.o. and of oral antibiotics. Will need to follow-up with ID as an outpatient. Plan for the day: Continue with home antihypertensives. Postoperative care as per surgical team. Physical therapy. For pain management continue with home dose of Suboxone, [place]. Add fentanyl 25 mcg patch along with tramadol 50 mg every 4 hourly as needed. Discussed with the caregiver that he should have alternative tramadol and [place] every few hours for cascading effect. Patient and caregiver verbalized understanding and agreeable. Also discussed with the caregiver that he needs to see pain management as an outpatient for which she will need to get referral from his primary care office. No OR cultures, blood culture sent. Continue current IV antibiotics. Will consult ID for outpatient antibiotic treatment and duration. Attestations Medical Necessity Statement*: Requires further hospitalization for postoperative care in setting of lumbar vertebral collapse post spinal fusion and instrumentation, pain management requiring multiple doses of pain medications Diagnoses Lumbar vertebral collapse M48.56XA
[2023-12-21] MEDS: mirtazapine 15 mg Tablet PO (20:15)
[2023-12-21] MEDS: LORazepam 1 mg Tablet PO (20:15)
[2023-12-21] MEDS: TRAMadol 50 mg Tablet PO (20:15)
[2023-12-21] MEDS: pantoprazole DR 40 mg Tablet PO (20:15)
--- NOTE | 2023-12-21 22:39 | P.CONIM_ITS ---
Providers/Reason For Consult 2 Consulting Physician/Specialty*: Antonia Kapoor MD. Infectious Disease Reason for Consult*: history of MRSA spine infection Requesting Physician: Jordan Wilder MD Attending Physician: Jordan Wilder MD Primary Care Provider: Harjit Kohli DO History of Present Illness History of Present Illness Joby Jean is a 48 year old male known to me from the outpatient side. Briefly patient has a history of MRSA bacteremia and lumbar discitis/osteomyelitis with interval compression in July 2023. He is status post completion of 6 weeks of IV vancomycin/daptomycin until September 16, 2023 followed by transition to oral Bactrim to take total treatment course to 12 weeks. Follow-up MRI in August and then again in October showed interval progression of destructive changes at levels of L1-L2-L3 with spinal nerve compression. Most likely related to destruction from his osteomyelitis. In September 2023 he had presented with acutely worsening pain after sustaining a mechanical fall at home and underwent L1-L2-L3 laminectomy with partial facetectomy on 1116. OR cultures were taken at this time to ensure resolution of osteomyelitis and were reassuringly negative. MEME was additionally negative for any vegetations. Blood culture 1 out of 4 was positive for Staph epidermidis at this time, likely contaminant. He received 2 weeks of IV vancomycin until satisfactory wound healing was noted. He has continued to have significant pain as outpatient related to his destructive changes and is currently admitted since December 17, 2023 due to increasing collapse of the L2 vertebra with progressive compression of the spinal cord. He underwent T10-L4 posterior spine fusion and instrumentation. He has been afebrile, hemodynamically stable. He is doing well postoperatively, states that pain is improved. Patient states that he has improved nausea has increased appetite and has put on weight since last being seen in October 2023. Review of Systems 2 General: Reports: 10 or more systems reviewed and unremarkable except in HPI and below Const: Denies: fever(s), chills or body aches Eyes: Denies: change in vision, blurry vision or photophobia ENMT: Reports: hoarseness; Denies: throat pain, enlarged tonsils, odynophagia or nasal congestion Card: Denies: chest pain, palpitations, irregular heart rhythm, edema, swelling of feet/ankles, lightheadedness, pre-syncope, dyspnea on exertion or orthopnea Resp: Denies: dyspnea, productive cough, non-productive cough, wheezing, stridor, pain on inspiration, change in phlegm color, hemoptysis or chest congestion GI: Denies: abdominal pain, nausea, vomiting, hematemesis, coffee ground emesis, dysphagia, heartburn, diarrhea, constipation, GI cramping, change in stool character, hematochezia or melena : Denies: flank pain, dysuria, urinary frequency, urinary urgency, urinary hesitancy or hematuria Musc: Denies: neck pain, back pain, extremity pain, joint swelling, joint warmth or deformity Neuro: Denies: headache(s), numbness in extremities, weakness in extremities, sensory changes, difficulty walking, frequent falls, dizziness, vertigo, behavioral changes, Slurred speech present or seizure-like activity Psych: Denies: anxiety, depression, suicidal ideation or homicidal ideation Endo: Denies: polyuria, polydipsia, tired all the time, cold intolerance or hot flashes Festus/Lymph: Denies: easy bruising or easy bleeding Medications/Allergies Home Medications Medication Instructions Recorded Confirmed Last Taken Type clonidine HCl 0.1 mg tablet 0.1 mg PO TID 02/16/23 12/18/23 12/11/23 History TLSO BRACE #1 ea 07/09/23 12/18/23 Unknown Rx methylphenidate HCl 20 mg tablet 20 mg PO BID 08/03/23 12/18/23 12/11/23 History lorazepam 1 mg tablet 1 mg PO Q6H PRN Anxiety 10/14/23 12/18/23 12/11/23 History methadone 10 mg tablet 30 mg PO BID 10/14/23 12/18/23 12/11/23 History mirtazapine 15 mg tablet 15 mg PO BEDTIME 10/14/23 12/18/23 12/10/23 History chlorhexidine gluconate 4 % 1 applic topical Q5M 2 doses #118 12/01/23 12/18/23 12/11/23 Rx topical liquid (Antiseptic Skin mL Cleanser (chlorhexidine)) mupirocin 2 % topical ointment 1 applic topical BID 12/01/23 12/18/23 12/11/23 Rx decolonization #22 grams meloxicam 15 mg tablet 15 mg PO DAILY PRN Spasms 0112/18/23 12/10/23 History omeprazole 40 mg capsule,delayed 40 mg PO DAILY PRN gerd 12/09/23 12/18/23 12/11/23 History release baclofen 10 mg tablet 10 mg PO TID PRN Pain 12/11/23 12/18/23 Unknown History gabapentin 300 mg capsule See Rx Instructions .Route .COMPLEX 12/11/23 12/18/23 12/11/23 History ondansetron 4 mg disintegrating 8 mg PO TID 12/11/23 12/18/23 12/11/23 History tablet hydrocodone 7.5 mg-acetaminophen 1 tab PO Q4H PRN pain 5 days #20 12/14/23 12/18/23 Unknown Rx 325 mg tablet tabs chlorhexidine gluconate 4 % 1 applic topical Q4D 12/18/23 12/18/23 Unknown History topical liquid (Hibiclens) fentanyl 25 mcg/hr transdermal 1 patch transdermal Q72H #5 ea 12/22/23 Unknown Rx patch sulfamethoxazole 800 1 tab PO BIDWMEAL 14 days #28 tabs 12/22/23 12/18/23 Unknown Rx mg-trimethoprim 160 mg tablet Allergies Allergy/AdvReac Type Severity Reaction Status Date / Time trazodone Allergy ADR-Nightma Verified 12/17/23 15:42 re haloperidol [From Haldol] AdvReac Severe ADR-Anxiety Verified 12/21/23 22:46 Iodinated Contrast Media AdvReac Mild ADR-Itching Verified 12/21/23 22:46 Current Medications Generic Name Dose Route Start Last Admin Trade Name Freq PRN Reason Stop Dose Admin Hydrocodone Bitart/Acetaminophen 1 tab 12/17/23 20:32 12/21/23 22:24 Hydrocodone-Acetaminophen 7.5-325 Mg Tablet PO 1 tab Q4H PRN Administration pain Baclofen 10 mg 12/17/23 20:32 12/21/23 17:31 Baclofen 10 Mg Tablet PO 10 mg TID PRN Administration Pain Clonidine HCl 0.1 mg 12/17/23 21:00 12/21/23 20:15 Clonidine 0.1 Mg Tablet PO 0.1 mg TID AARTI Administration Docusate Sodium 100 mg 12/18/23 18:00 12/21/23 17:32 Docusate Sodium 100 Mg Capsule PO 100 mg BID AARTI Administration Fentanyl 1 patch 12/21/23 13:45 12/21/23 14:22 Fentanyl 25 Mcg Patch TRANSDERMA 1 patch Q72H [facility] Administration Gabapentin 300 mg 12/19/23 18:00 12/21/23 20:15 Gabapentin 300 Mg Capsule PO 300 mg TID [facility] Administration Vancomycin/PEG/NADA/Lysine/Water 1,250 mg in 250 mls @ 250 mls/hr 12/19/23 13:00 12/21/23 15:38 Vancocin IV Infused 0100,1300 [facility] Infusion Ketorolac Tromethamine 30 mg 12/20/23 11:17 12/21/23 17:32 Ketorolac 30 Mg/Ml Inj IVP 12/25/23 11:16 30 mg Q6H PRN Administration MODERATE PAIN Lorazepam 1 mg 12/17/23 20:32 12/21/23 20:15 Lorazepam 1 Mg Tablet PO 1 mg Q6H PRN Administration Anxiety Methadone HCl 30 mg 12/18/23 19:00 12/21/23 17:32 Methadone 10 Mg Tablet PO 30 mg BID [facility] Administration Methylphenidate HCl 20 mg 12/18/23 09:00 12/21/23 17:31 Methylphenidate 10 Mg Tablet PO 20 mg BID [facility] Administration Mirtazapine 15 mg 12/17/23 21:00 12/21/23 20:15 Mirtazapine 15 Mg Tablet PO 15 mg BEDTIME [facility] Administration Morphine Sulfate 2 mg 12/21/23 13:18 12/21/23 14:23 Morphine 4 Mg/Ml Sdv 1 Ml IVP 2 mg Q4H PRN Administration SEVERE PAIN Mupirocin 1 applic 12/18/23 09:00 12/21/23 17:32 Mupirocin Oint 22 Gm TOPICAL Not Given BID [facility] Nicotine 1 patch 12/20/23 09:00 12/21/23 08:35 Nicotine 14 Mg Patch TRANSDERMA 1 patch Q24H [facility] Administration Non-Formulary Medication 8 mg 12/17/23 21:00 12/21/23 20:16 Ondansetron PO 8 mg TID [facility] Administration Ondansetron HCl 4 mg 12/18/23 16:02 12/19/23 20:11 Ondansetron 2 Mg/Ml Sdv 2 Ml IVP 4 mg Q6H PRN Administration NAUSEA AND VOMITING Pantoprazole Sodium 40 mg 12/17/23 20:36 12/21/23 20:[address] 40 Mg Tablet PO 40 mg DAILY PRN Administration gerd Polyethylene Glycol 17 gm 12/20/23 09:00 12/21/23 17:33 Polyethylene Glycol 3350 Pkt 17 Gm PO Not Given BID AARTI Tramadol HCl 50 mg 12/21/23 13:18 12/21/23 20:15 Tramadol 50 Mg Tablet PO 50 mg Q6H PRN Administration MODERATE PAIN PFSH Acute 2 PFSH: Medical History History of drainage of abscess multiple Trauma in childhood Social anxiety disorder Femoral acetabular impingement Bleeding per rectum History of substance abuse Narcotic abuse Surgical History History of liver biopsy 2012 History of colonoscopy 2009 History of facial surgery 2013 No pertinent past surgical history Social History Smoking and tobacco/nicotine status: current every day tobacco/nicotine user cigarettes Packs smoked per day: 1 Years cigarettes smoked: 30 Quit status (tobacco/nicotine): has tried quititng Number of times tried to quit tobacco: 2 Second hand smoke exposure: Yes Alcohol intake: current Substance/Drug Use: current Substance/Drug use frequency: daily Other substance/drug use details: Fentanyl Current gender identity: Male Vitals/I&O/Wt Last Vital Signs Temp 98.7 F 12/21/23 19:57 Pulse 79 12/21/23 19:57 Resp 18 12/21/23 19:57 BP 131/87 12/21/23 19:57 Pulse Ox 98 12/21/23 19:57 O2 Del Method Room Air 12/21/23 16:17 O2 Flow Rate 6 12/18/23 17:07 12/21/23 12/21/23 12/21/23 06:59 14:59 22:59 Intake Total 250 / 1220 720 / 720 1260 / 1980 Balance 250 / 770 720 / 720 1260 / 1980 Weight last 48 hrs Weight 78.744 kg Weight 78.744 kg Physical Exam 2 Narrative: General: No acute distress, AO x3 HEENT: PERRLA, pupils bilaterally equal and reactive, pallors not present Chest: Normal vesicular breath sounds, no added sounds, equal good air entry bilaterally CVS: S1-S2 regular, no murmurs, no tachycardia, no gallops, no rubs Abdomen: Soft, nontender, no organomegaly, bowel sounds present Neuro: No focal deficits, no facial deformity, AO x3, power 5/5 in all limbs Extremities: surgical dressing not opened for exam by me today Urinary Catheter Management: Mcghee: Cath Placed During This Visit: yes, but has since been removed by the nurse Reason for Continuing Indwelling Catheter: Decision to DC Catheter Urinary Catheter Date of Insertion: 12/18/23 Urinary Catheter Time of Insertion: 13:20 Date Urinary Catheter Removed: 12/18/23 Time Urinary Catheter Discontinued: 21:38 Data 12/22/23 05:43 12/22/23 05:43 A&P Assessment and plan (1) Osteomyelitis of lumbar spine: treated (2) Hepatitis C: Qualifiers: Viral hepatitis chronicity: chronic Hepatic coma status: without hepatic coma Qualified Code(s): B18.2 - Chronic viral hepatitis C Plan 48-year-old male with HPI as outlined above, osteomyelitis of the lumbar spine, status post 12 weeks of treatment completed in August 2023. Underwent laminectomy in September at which point cultures were obtained and were reassuringly negative. He has continued to have persistent destructive changes at the L2, likely residual from his known osteomyelitis leading to spinal root compression, significant pain and bowel and bladder incontinence. He is now status post lumbar fusion and instrumentation as noted above. Patient has completed an adequate course for lumbar osteomyelitis. No current indication for long-term antibiotics. Can continue Bactrim DS 1 tab p.o. twice daily for the next 2 weeks until adequate wound healing has occurred. Thereafter plan to discontinue antibiotics. Patient is not currently interested in resuming [place]. This will be reconsidered at a later time as an outpatient. Follow-up in ID clinic in 1 month Coding Level of Care Code Acute Code for Chg Fwd Diagnoses Osteomyelitis of lumbar spine M46.26 Chronic hepatitis C without hepatic coma B18.2 Viral hepatitis chronicity: chronic Hepatic coma status: without hepatic coma
--- NOTE | 2023-12-21 23:33 | PC.NURSE ---
Caregiver states that patient walked approximately 100 feet in the diaz with her. Nurse did not witness this.
[2023-12-22] VITALS (8 sets, daily range): BP systolic 114–150; BP diastolic 60–78; PULSE 61–77; RESP 15–20; TEMP 36.4–37; O2SAT 96–97
[2023-12-22] MEDS: TRAMadol 50 mg Tablet PO ×2 (00:54→08:58)
[2023-12-22] MEDS: alum-mag-hydroxide-sime 30 mL UDC PO (01:21)
--- NOTE | 2023-12-22 01:47 | PC.NURSE ---
Patient refused PO Bactrium stating, cant' we just start that in the morning? It makes my stomach hurt and I don't feel like eating right now. I'll just take it in the morning with breakfast.
[2023-12-22] MEDS: baclofen 10 mg Tablet PO (02:24)
[2023-12-22] MEDS: HYDROcodone-acetaminophen 7.5-325 mg Tablet 1 TAB PO ×2 (04:07→08:58)
[2023-12-22] MEDS: ketorolac 30 mg/mL INJ IVP ×2 (05:26→11:40)
[2023-12-22] MEDS: morphine 4 mg/mL SDV 1 mL 2 MG IVP ×2 (05:59→11:41)
[2023-12-22 06:01] LABS: Basophils % 0.5 %; Eosinophils # 0.4 10^3/uL (0.0-0.8); Eosinophils % 5.5 %; Hematocrit 25.6 % (37-53); Lymphocytes # 1.3 10^3/uL (0.8-4.8); Lymphocytes % 20.8 %; Mean Corpuscular Hemoglobin 26.8 pg (27-33); Mean Corpuscular Volume 83.7 fl (82-101); Mean Platelet Volume 8.5 fL (7.4-10.4); Monocytes # 0.5 10^3/uL (0.2-0.9); Monocytes % 8.2 %; Neutrophils % 64.4 %; Nucleated Red Blood Cells % 0 %; Platelet Count 311 10^3/cmm (157-399); Red Blood Count 3.06 10^6/uL (3.85-5.65); Red Cell Distribution Width 13.5 % (12.1-15.1); White Blood Count 6.36 10^3/uL (3.29-11.43)
[2023-12-22 06:16] LABS: Anion Gap 11.6 (5-19); Blood Urea Nitrogen 16 mg/dL (6-20); Calcium 8.2 mg/dL (8.5-10.5); Carbon Dioxide 30 mmol/L (22-29); Chloride 101 mmol/L (98-107); Glomerular Filtration Rate 102.7 mL/min (90-130); Glucose 124 mg/dL (65-115); Osmolality Calculated 291 mOsm/kg (285-295); Potassium 3.6 mmol/L (3.5-5.1); Sodium 139 mmol/L (136-145)
--- NOTE | 2023-12-22 06:52 | PC.NURSE ---
Throughout my shift, patient has received Baclofen x1, Morphine x1, Toradol x2, Tramadol x2, and [place] x2. Patient has not rated pain less than 7/10 throughout shift.
--- NOTE | 2023-12-22 08:03 | P.PN_ITS ---
Subjective 2 Subjective: Pain better controlled patient is wanting to the hospital today. Vitals/I&O/Wt Last Vital Signs Temp 97.6 F 12/22/23 07:21 Pulse 61 12/22/23 07:21 Resp 18 12/22/23 07:21 BP 126/77 12/22/23 07:21 Pulse Ox 97 12/22/23 07:21 O2 Del Method Room Air 12/22/23 07:21 O2 Flow Rate 6 12/18/23 17:07 12/21/23 12/22/23 12/22/23 22:59 06:59 14:59 Intake Total 1260 / 1979 500 / 2480 Balance 1260 / 1979 500 / 2480 Weight last 48 hrs Weight 173 lb 9.6 oz Weight 173 lb 9.6 oz Physical Exam 2 Narrative: Leg pain is gone patient feels like he is more solid when he stands up. Has been ambulating Urinary Catheter Management: Mcghee: Cath Placed During This Visit: yes, but has since been removed by the nurse Reason for Continuing Indwelling Catheter: Decision to DC Catheter Urinary Catheter Date of Insertion: 12/18/23 Urinary Catheter Time of Insertion: 13:20 Date Urinary Catheter Removed: 12/18/23 Time Urinary Catheter Discontinued: 21:38 Data 12/22/23 05:43 12/22/23 05:43 A&P Assessment and plan (1) Status post lumbar spinal fusion: Status post thoracolumbar fusion. Discharge planning. Attestations 2 Medical Necessity Statement*: Per primary service Coding Level of Care Code Acute Code for Chg Fwd Diagnoses Status post lumbar spinal fusion Z98.1
[2023-12-22] MEDS: acetaminophen 325 mg Tablet 650 MG PO (08:56)
[2023-12-22] MEDS: methadone 10 mg Tablet 30 MG PO (08:56)
[2023-12-22] MEDS: cloNIDine 0.1 mg Tablet PO (08:56)
[2023-12-22] MEDS: methylphenidate 10 mg Tablet 20 MG PO (08:57)
[2023-12-22] MEDS: docusate sodium 100 mg Capsule PO (08:58)
[2023-12-22] MEDS: gabapentin 300 mg Capsule PO (08:58)
[2023-12-22] MEDS: nicotine 14 mg Patch 1 PATCH TRANSDERMA (08:59)
[2023-12-22] MEDS: calcium carbonate 500 mg Chew Tablet PO (11:40)
--- NOTE | 2023-12-22 12:01 | PM.DCS ---
Discharge Providers Date of Admission: 12/17/23 17:23 Date of Discharge: December 22, 2023 Attending Provider at Admission: Kennedy Cash Attending Provider at Discharge: Jordan Wilder MD Consults: Orthopedics: Dr. Lopez ID: Dr. Kapoor Primary Care Provider: Harjit Kohli DO Diagnoses at Discharge Discharge Diagnosis (1) Status post lumbar spinal fusion: Status: Acute Reason for Visit Reason for Visit: broken back per Brief History: History as per HPI: 48-year-old gentleman with history of chronic cellulitis of L2, history of MRSA infection, status post IV antibiotic, on chronic suppression with Bactrim, vertebral destruction, collapse of L1-L2, remote history of substance use disorder, on methadone, hepatitis C, treatment has been paused, admitted in October at that time could not undergo surgery with orthospine surgeon unavailable, arrangements were going to be made outpatient, however, has been having worsening symptoms, worsening back pain, bowel habit changes, reporting some difficulties with continence urine, feces, states he is unable to urinate by evaluation, urine accumulates to a certain amount, and then he urinates, denies lower abdominal pain. Similar problems with bowel movements, states sometimes does not make it to the bathroom. Reports worsening back pain. Worsening paresthesia right lower extremity, some numbness around the groin. Orthospine surgery was contacted from ER, requesting admission, n.p.o. after midnight plans for surgical intervention in the morning. Patient states otherwise has been at baseline state of health, denies any cardiac issues in the past, no chest pain or pressure, no shortness of breath at rest or with exertion. Hospital Course Hospital Course Patient was admitted to the hospital further evaluation and management of worsening of lumbar vertebral collapse with concerns for symptoms consistent with cauda equina. Orthopedics was consulted. He was continued on his home pain regimen. He underwent T10 L4 posterior spinal fusion, T10 L4 posterior spinal instrumentation. During hospitalization his blood cultures remain negative. He was also seen by infectious disease to determine length of outpatient treatment. Patient worked well with physical therapy. Hospitalization was otherwise unremarkable. He has been discharged home on oral antibiotics for next 2 weeks with advised to follow-up with ID in clinic in around 1 month. Physical Exam Narrative: Accompanied by his guardian. Const: COMMON NORMALS: patient oriented x3 and alert GENERAL APPEARANCE: cooperative ORIENTATION/CONSCIOUSNESS: Yes awake OTHER: Asleep, wakes up briefly to voice, falls back asleep. HENMT: COMMON NORMALS: oropharynx normal Neck/C-Spine: COMMON NORMALS: no JVD Resp: COMMON NORMALS: normal respiratory effort and clear to auscultation bilaterally AUSCULTATION: clear to auscultation bilaterally Cardio: COMMON NORMALS: no JVD, regular rhythm, S1 normal heart sound present, S2 normal heart sound present and No murmurs present (Cardio) RHYTHM: regular rhythm HEART SOUNDS: S1 normal heart sound present and S2 normal heart sound present GI: COMMON NORMALS: Normal to inspection, nondistended, normoactive bowel sounds present, Soft to palpation and non-tender PALPATION: Yes Soft to palpation Extremity: COMMON NORMALS: no joint enlargement and no pedal edema OTHER: Moves bilateral lower extremities. Neuro: COMMON NORMALS: patient oriented x3 and moves all extremities SENSORIUM/ORIENTATION: Yes alert Skin: COMMON NORMALS: no rashes or lesions noted GENERAL SKIN EXAM: no rashes or lesions noted Urinary Catheter Management: Mcghee: Cath Placed During This Visit: yes, but has since been removed by the nurse Reason for Continuing Indwelling Catheter: Decision to DC Catheter Urinary Catheter Date of Insertion: 12/18/23 Urinary Catheter Time of Insertion: 13:20 Date Urinary Catheter Removed: 12/18/23 Time Urinary Catheter Discontinued: 21:38 Discharge Data Studies Completed and Pending Completed Studies During Hospitalization Category Date Time Status CT lumbar spine wo con* [id number] Stat Cat Scan 12/17/23 17:[address] thoracic spin wo con* [id number] Stat Cat Scan 12/17/23 17:06 Completed XR lumbar spine 2-3V* [id number] Routine Exams 12/18/23 16:14 Completed Pending at discharge Category Date Time Status Basic Metabolic Panel AM LABS Lab 12/23/23 04:00 Ordered Complete Blood Count w/Auto AM LABS Lab 12/23/23 04:00 Ordered Radiology Impressions Lumbar Spine CT 12/17/23 17:06 IMPRESSION: Persistent sequela of chronic discitis and osteomyelitis at L1/2, with destruction and collapse of inferior endplate of L1 vertebral body and L2 vertebral body and bilateral pedicles and mild focal left upper lumbar scoliosis and kyphosis and < 5 mm, grade I (< 25%) retrolisthesis of L1 on 2. Associated moderate canal narrowing and moderate right and mild left neural foraminal narrowing at L1/2 and inferior displacement and presumed moderate impingement of cauda equina and severe impingement of bilateral L2 nerve roots from retrolisthesis of L1 on 2. L-spine MRI is better study of choice for evaluation of cauda equina or nerve root compression. THIS REPORT CONTAINS FINDINGS THAT MAY BE CRITICAL TO PATIENT CARE. The findings were verbally communicated via telephone conference with IVAN TURNER at 6:47 PM [employer] on 12/17/2023. The findings were acknowledged and understood. ADDENDUM: 12/17/231910 ADDENDUM: For numbering purposes, there are assumed to be *13* rib-bearing thoracic and 5 lumbar vertebrae. *As such, following discs are renumbered.* *At T11/12, mild circumferential disc bulge is partially visualized. At T12/13, there is moderate circumferential disc bulge along with vertebral osteophytes, with mild canal and mild left neural foraminal narrowing. At T13/L1, there is mild circumferential disc bulge, without significant canal, but mild left neural foraminal narrowing.* Thoracic Spine CT 12/17/23 17:06 IMPRESSION: Partially visualized sequela of chronic discitis and osteomyelitis at L1/2, with destruction and collapse of inferior endplate of L1 vertebral body and L2 vertebral body and bilateral pedicles and < 5 mm, grade I (< 25%) retrolisthesis of L1 on 2, better evaluated on l-spine CT of same date. See report of that study. Laboratory Results WBC 6.36 10^3/uL (3.29-11.43) 12/22/23 05:43 Corrected WBC Cancelled 12/19/23 04:53 RBC 3.06 10^6/uL (3.85-5.65) L 12/22/23 05:43 Hgb 8.20 g/dL (11.27-16.99) L 12/22/23 05:43 Hct 25.6 % (37-53) L 12/22/23 05:43 MCV 83.7 fl (82-101) 12/22/23 05:43 MCH 26.8 pg (27-33) L 12/22/23 05:43 MCHC 32.0 g/dL (30-55) 12/22/23 05:43 RDW 13.5 % (12.1-15.1) 12/22/23 05:43 Plt Count 311 10^3/cmm (157-399) 12/22/23 05:43 MPV 8.5 fL (7.4-10.4) 12/22/23 05:43 Gran % Cancelled 12/19/23 04:53 Neut % (Auto) 64.4 % 12/22/23 05:43 Lymph % (Auto) 20.8 % 12/22/23 05:43 [place] % (Auto) 8.2 % 12/22/23 05:43 Eos % (Auto) 5.5 % 12/22/23 05:43 Baso % (Auto) 0.5 % 12/22/23 05:43 Neut # (Auto) 4.10 10^3/uL (1.8-7.7) 12/22/23 05:43 Lymph # (Auto) 1.3 10^3/uL (0.8-4.8) 12/22/23 05:43 [place] # (Auto) 0.5 10^3/uL (0.2-0.9) 12/22/23 05:43 Eos # (Auto) 0.4 10^3/uL (0.0-0.8) 12/22/23 05:43 Baso # (Auto) 0.0 10^3/uL (0.0-0.1) 12/22/23 05:43 Absolute Gran (auto) Cancelled 12/19/23 04:53 Nucleated RBC % (auto) 0 % 12/22/23 05:43 Nucleated RBCs # 0.0 /100WBC 12/22/23 05:43 PT 13.20 SECONDS (12.1-14.9) 12/17/23 17:25 INR 0.97 (0.8-1.2) 12/17/23 17:25 APTT 31.0 SECONDS (23.9-36.7) 12/17/23 17:25 Sodium 139 mmol/L (136-145) 12/22/23 05:43 Potassium 3.6 mmol/L (3.5-5.1) 12/22/23 05:43 Chloride 101 mmol/L (98-107) 12/22/23 05:43 Carbon Dioxide 30 mmol/L (22-29) H 12/22/23 05:43 Anion Gap 11.6 (5-19) 12/22/23 05:43 BUN 16 mg/dL (6-20) 12/22/23 05:43 Creatinine 0.8 mg/dL (0.7-1.2) 12/22/23 05:43 GFR Calculation 102.7 mL/min (90-130) 12/22/23 05:43 Glucose 124 mg/dL (65-115) H 12/22/23 05:43 Calculated Osmolality 291 mOsm/kg (285-295) 12/22/23 05:43 Calcium 8.2 mg/dL (8.5-10.5) L 12/22/23 05:43 Magnesium 2.1 mg/dL (1.7-2.3) 12/18/23 06:06 Total Bilirubin 0.2 mg/dL (0.15-1.2) 12/20/23 04:54 AST 21 U/L (0-40) 12/20/23 04:54 ALT 18 U/L (0-41) 12/20/23 04:54 Alkaline Phosphatase 102 U/L (40-130) 12/20/23 04:54 Total Protein 6.3 g/dL (6.6-8.7) L 12/20/23 04:54 Albumin 2.9 g/dL (3.5-5.2) L 12/20/23 04:54 Globulin 3.4 g/dL (1.3-4.6) 12/20/23 04:54 Vancomycin Trough 16.4 ug/mL (10-15) H 12/20/23 12:01 Blood Type B Positive 12/18/23 07:48 Rho(D) Type Rh positive 12/18/23 07:48 Antibody Screen Negative 12/18/23 07:48 Vitals Last Vital Signs Temp 98.3 F 12/22/23 11:52 Pulse 77 12/22/23 11:52 Resp 15 12/22/23 11:52 BP 127/78 12/22/23 11:52 Pulse Ox 97 12/22/23 11:52 O2 Del Method Room Air 12/22/23 11:52 O2 Flow Rate 6 12/18/23 17:07 Discharge Plan Discharge Patient Disposition: Home Condition: Stable Prescriptions: New fentanyl 25 mcg/hr patch 72 hour 1 patch transdermal Q72H Qty: 5 0RF Continued clonidine HCl 0.1 mg tablet 0.1 mg PO TID (DME) TIFFANIE GIRON See Rx Instructions .Route .MEDSUPPLY Qty: 1 0RF Rx Instructions: As directed mupirocin 2 % ointment 1 applic topical BID Qty: 22 5RF Rx Instructions: use twice daily around nares, groin and axilla for 5 days each month chlorhexidine gluconate [Antiseptic Skin Clnsr(chlorhe)] 4 % liquid 1 applic topical Q5M Qty: 118 0RF Rx Instructions: use face down to take a bath with hibiclens wash 5 days a month omeprazole 40 mg capsule,delayed release(DR/EC) 40 mg PO DAILY PRN (Reason: gerd) meloxicam 15 mg tablet 15 mg PO DAILY PRN (Reason: Spasms) hydrocodone-acetaminophen 7.5-325 mg tablet 1 tab PO Q4H PRN (Reason: pain) 5 Days Qty: 20 0RF Hibiclens 4 % liquid 1 applic TOPICAL Q4D methylphenidate HCl 20 mg tablet 20 mg PO BID methadone 10 mg Tablet 30 mg PO BID mirtazapine 15 mg tablet 15 mg PO BEDTIME lorazepam 1 mg tablet 1 mg PO Q6H PRN (Reason: Anxiety) baclofen 10 mg tablet 10 mg PO TID PRN (Reason: Pain) gabapentin 300 mg capsule See Rx Instructions .ROUTE .COMPLEX Rx Instructions: 600 mg orally QAM - 300 MG AFTERNOON - 600 MG QPM ondansetron 4 mg tablet,disintegrating 8 mg PO TID Changed sulfamethoxazole-trimethoprim 800-160 mg tablet 1 tab PO BIDWMEAL 14 Days Qty: 28 0RF Discharge Orders: Discharge Order (Routine); Ordered 12/22/23 Ordered By: Jordan Wilder Referrals: Jacob Lopez DO [Physician] - 01/05/24 2:15 pm Harjit Kohli DO [Primary Care Provider] - 4-7 days ([phone] We have notified your physician's clinic of the need for a follow-up appointment to be scheduled. If you have not heard from them within the next 2 business days, please call them directly. [facility] THE DR OFFICE WILL CALL WITH APPOINTMENT) Antonia Kapoor MD [Hospitalist] - 1 month (We have notified your physician's clinic of the need for a follow-up appointment to be scheduled. If you have not heard from them within the next 2 business days, please call them directly. ) Discharge Diet: Regular Discharge Activity: Resume usual activity and Increase activity as tolerated Patient Instructions: Back Pain, Fentanyl (Absorbed through the skin) (Duragesic, Ionsys, Novaplus..., Lumbar Spinal Fusion (GEN), Opioid Safety Activity Restrictions/Additional Instructions: Thank you for [facility] for your care! The following is a list of instructions, from your provider, to follow upon your discharge to ensure you have the optimal recovery from your recent injury orsurgery. Follow-up care is a quintana part of your treatment and safety. Be sure to make and go to all appointments, and call your doctor if you are having problems. If you do not already have a follow-up appointment made, call Dr. Lopez office in the next 1-3 days to make follow up appointment for 2 weeks at [phone]. It is also a good idea to know your test results and keep a list of the medicines you take. Medications will be prescribed for you at your provider's discretion. These medications are to be used as instructed; if they are taken more often that prescribed they will not be refilled early and in most cases will not be refilled at all. > When a refill is needed,you should contact lori monroe 2-3 business days before your prescription runs out. Medications will NOT be refilled by probation officer providers after hours! > Many pain medications contain Tylenol (Acetaminophen). Do not consume more than 4,000 mg of Tylenol per day in total with any combination ofmedications. > Pain medications can cause constipation. Please use an over the counter stool softener as directed, while taking pain medications. Consulty our local pharmacist with questions or recommendations on stool softeners. If constipation persists, contact our office or your primary care provider. > While under our care,you are not to receive pain medications or other controlled substances from any other provider unless our office is notified and approves. Any attempts to do so will result in refusal to prescribe any further pain medications and possible dismissal from our practice. ? ? Showering is permitted, however we ask that you do not take a bath, sit in a whirlpool / Jacuzzi, or go swimming for 1 month. For only the first 2 days after surgery, lt wilt be necessary for you to cover your wound/dressing with plastic and tape to keep it dry. ? Walking is essential for the healing process after surgery. We would like you to slowly advance your walking. This should be done on relatively flat clear ground (inside or out) or can be done on a treadmill. Remember this goal does not have to happen all at once, slowly increase your distance and duration. This can be broken into more more than one walk per day as tolerated. Patients who walk as directed after surgery rarely require Physical Therapy. In the unlikely event this issue arises your provider will direct hospital staff to make the appropriate arrangements. ? No lifting over 5 pounds {a gallon of milk) or bending/twisting until further notice. Each of these activities places an unnecessary amount of stress onto the body and can impede the delicate healing process. > Instead of bending at the waist, keep your back straight and bend at the knees. > Instead of twisting your torso, keep your back straight and turn your entire body with your feet. ? You may sleep in any position which makes you comfortable. Many patients find comfort sleeping in a reclining chair. It is not abnormal to have difficulty sleeping for the first several weeks following your surgery. We recommend trying Benadry! or Tylenol PM as directed to help with your sleeping difficulties. Both medications are over the counter and available withoutprescription. ? NO SMOKING!!! Smoking dramatically increases the probability of developing postoperative wound infections. ? Common complaints after lumbar and/or thoracic spine surgery include, but are not limited to: numbness and/or tingling in the legs, pain around the incision and surrounding tissues, muscle spasms, or stiffness of the middle to low back. Contact our office if these symptoms persist or if an acute change occurs. ? No driving for the first 3-5days, and not while taking narcotics [] until seen at your follow-up appointment and cleared. There are no restrictions for riding on short trips, however if you take a longer trip, arrangements should be made to make regular stops to get out of the vehicle and stretch . ? Swelling is an unfortunate event that will take place with any surgery and is the primary source of your postoperative discomfort. While walking and regular approved activities helps control inflammation, there are additional steps you can take to minimizeswelling. > Place ice over the surgical site and surrounding tissue for twenty minutes, followed by applying a low/medium heat (heating pad) for an additional twenty minutes every 1-2 hours as needed for painrelief. > You may use of over the counter anti-inflammatory medications (Ibuprofen, Motrin, Aleve, Advil, etc) as directed on the package label. These types of medicines wm significantly reduce the amount of discomfort you experience after surgery from swelling. It should be noted that if you have and allergy to any of these medications, or a history of ulcers or kidney disease you should consult you primary care provider prior to starting these medications. Please follow-up with pain management as an outpatient. Please follow-up with orthopedics and ID on specific dates. Physical therapy and progression as per orthopedic team. Discharge Attestations Time Spent in Discharge Care*: greater than 30 min Specific Discharge Activities: educating patient, educating and/or supporting family/caregiver, discussing with pcp/other providers, discussing with adult protective caseworker/social workers/dc planners, documenting/other paperwork and evaluating patient/reviewing data Status at Discharge: Cognitive status at discharge: cognitively intact, Behavioral status at discharge: cooperative, Functional status at discharge: uses cane/walker, Overall status at discharge: patient is back to baseline Quality Metrics Clinical Quality Measures [ No reported AMI, CVA or VTE this stay] Coding Level of Care Code 90816 Total time (in minutes) for Discharge: 60 Diagnoses Status post lumbar spinal fusion Z98.1
--- NOTE | 2023-12-22 16:25 | PC.NURSE ---
Discharge Note Patient discharged to home via personal vehicle accompanied by caregiver. Discharge instructions reviewed with patient and/or bank representative. Mobile pharmacy medications and/or prescriptions provided. Belongings/home medications returned.
== END 2023-12-22 16:28 | disposition home or self-care (01) | DRG 457 ==
LOC: ER 17:18 → MEDSURG 18:27
PROVIDERS: Orthopaedic Surgery; Admitting Provider Internal Medicine; Emergency Provider Internal Medicine; PCP Electrodiagnostic Medicine; Visit Provider Student in an Organized Health Care Education/Training Program
PROC: 0RG70AJ Fusion of 2 to 7 Thoracic Vertebral Joints with Interbody Fusion Device, Posterior Approach, Anterior Column, Open Approach (ICD-10-PCS; principal; 2023-12-18 13:30)
DX: M48.56XA Collapsed vertebra, not elsewhere classified, lumbar region, initial encounter for fracture (principal); F11.20 Opioid dependence, uncomplicated; M46.26 Osteomyelitis of vertebra, lumbar region; G83.4 Cauda equina syndrome; Z87.820 Personal history of traumatic brain injury; D64.9 Anemia, unspecified; B19.20 Unspecified viral hepatitis C without hepatic coma; Z86.14 Personal history of Methicillin resistant Staphylococcus aureus infection; Z79.2 Long term (current) use of antibiotics; F40.10 Social phobia, unspecified; F17.210 Nicotine dependence, cigarettes, uncomplicated; R15.9 Full incontinence of feces; R32 Unspecified urinary incontinence; M40.205 Unspecified kyphosis, thoracolumbar region; M40.204 Unspecified kyphosis, thoracic region
CPT/HCPCS: 36415; 36569; 36573; 36592; 51702; 51798; 72100; 72128; 72131; 75989; 76000; 80048; 80053; 80202; 83735; 85025; 85610; 85730; 86850; 86900; 93005; 97110; 97116; 97162; 99285; C1713; C1751; C9359; J0690; J1100; J1170; J1644; J1885; J2250; J2270; J2405; J2704; J3010; J3370; J3490; J7030

== ENCOUNTER 2023-12-23 03:24 | Emergency (ER) | payer MEDICAID, SELFPAY ==
[2023-12-23 03:25] VITALS: BP 137/85; PULSE 81; RESP 18; TEMP 37; O2SAT 96; BMI 22.4
[2023-12-23 03:31] VITALS: BP 145/83; PULSE 80; RESP 16; O2SAT 98
--- NOTE | 2023-12-23 03:52 | PC.NURSE ---
This nurse spoke with the pts guardian, Arleen, via phone. Arleen was upset that pt was discharged from the hospital with poor pain mgt. She is convinced that the discharge doctor knew that he did not have adequate pain meds. Arleen mentioned that the pt had received poor care in the ER over night before but she stated I know you will do better tonight. She also stated that the pt was given zofran PO prior to ems leaving and she sent him with his gabapentin so he did not go into withdrawls.
[2023-12-23 04:01] VITALS: BP 133/80; PULSE 77; RESP 16; O2SAT 98
--- NOTE | 2023-12-23 04:21 | W.ED.BACK ---
HPI - Back Pain/Injury General: Chief Complaint: Back Pain/Injury Stated Complaint: post surgical back pain Time Seen by Provider: 12/23/23 03:32 History of Present Illness: Patient presented to the ER with complaints of bleeding saturating his postsurgical dressing. Patient had back surgery by Dr. Lopez on December 18 and was discharged yesterday. Patient thought he was bleeding and saturated his dressing however upon further talking to the patient he said he used a ice pack that leaked and thought that it may have leaked all over his dressing. Dressing was intact but appeared to be saturated with serosanguineous fluid and not gross blood Review of Systems General: Reports: 10 or more systems reviewed and unremarkable except in HPI and below PFSH ED PFSH: Medical History History of drainage of abscess multiple Trauma in childhood Social anxiety disorder Femoral acetabular impingement Bleeding per rectum History of substance abuse Narcotic abuse Surgical History History of liver biopsy 2012 History of colonoscopy 2008 History of facial surgery 2013 No pertinent past surgical history Social History Smoking and tobacco/nicotine status: current every day tobacco/nicotine user cigarettes Packs smoked per day: 1 Years cigarettes smoked: 30 Quit status (tobacco/nicotine): has tried quititng Number of times tried to quit tobacco: 2 Second hand smoke exposure: Yes Alcohol intake: current Substance/Drug Use: current Substance/Drug use frequency: daily Other substance/drug use details: Fentanyl Current gender identity: Male Physical Exam Neck/C-Spine: COMMON NORMALS: no JVD Chest: COMMONS NORMALS: normal inspection of the chest and normal palpation of entire chest wall Resp: COMMON NORMALS: normal respiratory effort, No retractions, No use of accessory muscles and clear to auscultation bilaterally AUSCULTATION: clear to auscultation bilaterally Cardio: COMMON NORMALS: no JVD, regular rate, regular rhythm, S1 normal heart sound present, S2 normal heart sound present, No gallops present (Cardio), No clicks present (Cardio), No murmurs present (Cardio) and No rub (Cardio) RATE: regular rate RHYTHM: regular rhythm HEART SOUNDS: S1 normal heart sound present and S2 normal heart sound present GI: COMMON NORMALS: Normal to inspection, nondistended, normoactive bowel sounds present, Soft to palpation, non-tender, No hepatosplenomegaly present and no masses PALPATION: Yes Soft to palpation and Yes No hepatosplenomegaly present Back/Pelvis: OTHER: Dressing was removed from surgical site that extends down the majority of patient's thoracic and lumbar area along with what appears to be at drain site near his right sacral area. The dressing was saturated with serosanguineous fluid there is no jose enrique blood or bleeding noted. There is no odor. Steri-Strips were all intact. Area was cleansed and redressed by nursing. Course Vital Signs: Vital signs: Vital Signs Temperature 98.6 F 12/23/23 03:25 Pulse Rate 81 12/23/23 03:25 Respiratory Rate 18 12/23/23 03:25 Blood Pressure 137/85 12/23/23 03:25 Pulse Oximetry 96 12/23/23 03:25 MDM - Back Pain/Injury Medical Decision Making Patient was seen in the ER today for essentially dressing change of his postsurgical site on his back. This was done with no complications. Medical Records I reviewed the patient's medical records. Labs I reviewed the patient's lab results. No radiology studies performed this visit Discharge Plan Discharge Patient Disposition: Home Clinical Impression: Change or removal of surgical wound dressing Condition: Stable Prescriptions: No Action clonidine HCl 0.1 mg tablet 0.1 mg PO TID (DME) TLSO BRACE See Rx Instructions .Route .MEDSUPPLY Qty: 1 0RF Rx Instructions: As directed mupirocin 2 % ointment 1 applic topical BID Qty: 22 5RF Rx Instructions: use twice daily around nares, groin and axilla for 5 days each month chlorhexidine gluconate [Antiseptic Skin Clnsr(chlorhe)] 4 % liquid 1 applic topical Q5M Qty: 118 0RF Rx Instructions: use face down to take a bath with hibiclens wash 5 days a month omeprazole 40 mg capsule,delayed release(DR/EC) 40 mg PO DAILY PRN (Reason: gerd) meloxicam 15 mg tablet 15 mg PO DAILY PRN (Reason: Spasms) hydrocodone-acetaminophen 7.5-325 mg tablet 1 tab PO Q4H PRN (Reason: pain) 5 Days Qty: 20 0RF Hibiclens 4 % liquid 1 applic TOPICAL Q4D sulfamethoxazole-trimethoprim 800-160 mg tablet 1 tab PO BIDWMEAL 14 Days Qty: 28 0RF fentanyl 25 mcg/hr patch 72 hour 1 patch transdermal Q72H Qty: 5 0RF methylphenidate HCl 20 mg tablet 20 mg PO BID methadone 10 mg Tablet 30 mg PO BID mirtazapine 15 mg tablet 15 mg PO BEDTIME lorazepam 1 mg tablet 1 mg PO Q6H PRN (Reason: Anxiety) baclofen 10 mg tablet 10 mg PO TID PRN (Reason: Pain) gabapentin 300 mg capsule See Rx Instructions .ROUTE .COMPLEX Rx Instructions: 600 mg orally QAM - 300 MG AFTERNOON - 600 MG QPM ondansetron 4 mg tablet,disintegrating 8 mg PO TID Discharge Orders: Discharge ED (Routine); Ordered 12/23/23 Ordered By: Sergio Wagner Referrals: Harjit Kohli DO [Primary Care Provider] - 1 week Activity Restrictions/Additional Instructions: Keep your surgical wound clean and dry. Follow the instructions that Dr. Lopez gave you after surgery. Do not use your leaking water bottle. If you develop any redness streaking fever chills worsening pain feel free to return to the ER for further evaluation otherwise follow-up with Dr. Lopez as directed through postsurgical discharge paperwork Coding Level of Care Code ED Field Agronomist for William Chadwick
--- NOTE | 2023-12-23 04:27 | PC.NURSE ---
Caregiver Iris - Caregiver Iris called this RN to notify me that the pt was in the ER. studio operation engineer wanted to inform me that pt is scared and cold. Iris stated that she will be at bedside with pt when she is able to pull her head together , I just want you to know that he's there .
[2023-12-23 04:30] VITALS: BP 134/89; PULSE 71; RESP 16; O2SAT 99
[2023-12-23 04:59] VITALS: BP 134/89; PULSE 65; RESP 16; O2SAT 98
== END 2023-12-23 05:20 | disposition home or self-care (01) ==
PROVIDERS: Emergency Provider Emergency Medicine; PCP Electrodiagnostic Medicine
DX: Z48.01 Encounter for change or removal of surgical wound dressing (principal); F17.210 Nicotine dependence, cigarettes, uncomplicated
CPT/HCPCS: 99281

== ENCOUNTER 2024-01-11 14:52 | Outpatient (CLI) | payer MEDICAID, SELFPAY ==
--- NOTE | 2024-01-11 15:15 | MR_ITS ---
WS: [id number] MRI HEAD WITHOUT CONTRAST TECHNIQUE: Sagittal T1, T2 axial, T2 axial FLAIR, axial and coronal T1 images, axial susceptibility w eighted imaging, axial diffusion weighted images, and coronal T2 images were obtained. CLINICAL INFORMATION: R51.9 - Headache, unspecified COMPARISON: None. FINDINGS: No evidence of restricted diffusion to suggest acute ischemia. Ventricular system and basilar cistern s are patent. 1 or 2 tiny foci of T2 hyperintensity in the frontal subcortical white matter of doubtf ul clinical significance but can be seen with migraine headaches. No other suspicious intracranial si gnal abnormalities. No significant parenchymal volume loss. Normal posterior fossa. Normal vascular f low voids at the skull base. No extra-axial fluid collections. No evidence of mass or mass effect. Paranasal sinuses and mastoid air cells are well aerated. Normal posterior nasopharynx and parapharyngeal fat. Visualized orbits are normal. No hemosiderin on the crystal ceptibly weighted images. Normal optic chiasm and pituitary infundibulum. Temporal lobes and hippocam pal formations are normal in appearance. No other suspicious findings. IMPRESSION: 1. No evidence of restricted diffusion to suggest acute ischemia. 2. No suspicious intracranial signal abnormalities. Normal rogers-white differentiation. 3. 1 or 2 tiny foci of T2 hyperintensity in the subcortical white matter of doubtful clinical signif icance but can be seen with migraine headaches. 4. No hemosiderin on the susceptibly weighted images. 5. No other suspicious findings.
== END 2024-01-11 14:53 | disposition home or self-care (01) ==
LOC: RAD 14:52
PROVIDERS: PCP Electrodiagnostic Medicine; Visit Provider Psychiatry & Neurology Neurology
DX: R51.9 Headache, unspecified (principal); R56.9 Unspecified convulsions
CPT/HCPCS: 70551

== ENCOUNTER → 2024-02-11 14:44 | Outpatient (BNVA) | payer MEDICAID, SELFPAY | PROVIDERS: PCP Electrodiagnostic Medicine; Visit Provider Orthopaedic Surgery | DX: Z98.1 Arthrodesis status (principal) | CPT/HCPCS: 72100 ==

== ENCOUNTER → 2024-03-22 14:23 | Outpatient (BNVA) | payer MEDICAID, SELFPAY | PROVIDERS: PCP Electrodiagnostic Medicine; Visit Provider Orthopaedic Surgery | DX: Z98.1 Arthrodesis status (principal) | CPT/HCPCS: 72100 ==

== ENCOUNTER 2024-05-24 01:30 | Emergency (ER) | payer MEDICAID, SELFPAY ==
[2024-05-24 01:31] VITALS: BP 128/91; PULSE 84; RESP 16; TEMP 36.8; O2SAT 94; BMI 24.4
--- NOTE | 2024-05-24 01:44 | ED_ITS ---
HPI - Abdominal Pain 2 General: Chief Complaint: Abdominal Pain Stated Complaint: abd pain Time Seen by Provider: 05/24/24 01:39 History of Present Illness: Patient presents to the ER with complaints of abdominal pain cramps and diarrhea. Patient said this started about 10:00 tonight. He is wondering if he got food poisoning. He has no nausea vomiting fever chills. No one else has been sick around him. He has eaten no known food he is in known bad or anyone else was complained of. Review of Systems 2 General: Reports: 10 or more systems reviewed and unremarkable except in HPI and below PFSH ED 2 PFSH: Medical History Cauda equina compression Lumbar vertebral collapse ADD (attention deficit disorder) History of drainage of abscess multiple Trauma in childhood Social anxiety disorder Femoral acetabular impingement Bleeding per rectum History of substance abuse Narcotic abuse Surgical History History of liver biopsy 2012 History of colonoscopy 2009 History of facial surgery 2014 Social History Smoking and tobacco/nicotine status: current every day tobacco/nicotine user cigarettes Packs smoked per day: 1 Years cigarettes smoked: 30 Quit status (tobacco/nicotine): has tried quititng Number of times tried to quit tobacco: 2 Second hand smoke exposure: Yes Alcohol intake: current Substance/Drug Use: current Substance/Drug use frequency: daily Other substance/drug use details: Fentanyl Current gender identity: Male Physical Exam 2 Const: COMMON NORMALS: no acute distress, average body habitus, patient oriented x3, no limitations, healthy appearing, alert and well nourished HENMT: COMMON NORMALS: normocephalic, hearing grossly normal bilaterally, external ears normal, Normal external nose present and moist oral mucous membranes HEAD & SCALP: normocephalic NOSE: Normal external nose present EXTERNAL EAR: Yes external ears normal Neck/C-Spine: COMMON NORMALS: no JVD Chest: COMMONS NORMALS: normal inspection of the chest and normal palpation of entire chest wall Resp: COMMON NORMALS: normal respiratory effort, No retractions, No use of accessory muscles and clear to auscultation bilaterally AUSCULTATION: clear to auscultation bilaterally Cardio: COMMON NORMALS: no JVD, regular rate, regular rhythm, S1 normal heart sound present, S2 normal heart sound present, No gallops present (Cardio), No clicks present (Cardio), No murmurs present (Cardio) and No rub (Cardio) R ATE: regular rate RHYTHM: regular rhythm HEART SOUNDS: S1 normal heart sound present and S2 normal heart sound present GI: COMMON NORMALS: Normal to inspection, nondistended, normoactive bowel sounds present, Soft to palpation, non-tender, No hepatosplenomegaly present and no masses PALPATION: Yes Soft to palpation and Yes No hepatosplenomegaly present Neuro: COMMON NORMALS: patient oriented x3 SENSORIUM/ORIENTATION: Yes alert Course 2 Vital Signs: Vital signs: Vital Signs Temperature 98.3 F 05/24/24 01:31 Pulse Rate 64 05/24/24 03:06 Respiratory Rate 18 05/24/24 03:06 Blood Pressure 128/91 05/24/24 01:31 Pulse Oximetry 92 05/24/24 03:06 Oxygen Delivery Me thod Room Air 05/24/24 01:31 MDM - Abdominal Pain Medical Decision Making For the exams form lab work was obtained which showed patient is anemic with hemoglobin 10.3 however this is elevated for him. Otherwise unremarkable, urinalysis did show 3+ mucus trace leukocyte Estrace, urine drug screen did show marijuana. Will wait and see if the urinalysis is grossly out any bacteria, otherwise patient be discharged home to follow-up with his PCP. Lab Data 05/24/24 02:11 05/24/24 02:11 Labs/Radiology: Laboratory Results WBC 9.17 10^3/uL (3.29-11.43) 05/24/24 02:11 RBC 4.39 10^6/uL (3.85-5.65) 05/24/24 02:11 Hgb 10.30 g/dL (11.27-16.99) L 05/24/24 02:11 Hct 35.0 % (37-53) L 05/24/24 02:11 MCV 79.7 fl (82-101) L 05/24/24 02:11 MCH 23.5 pg (27-33) L 05/24/24 02:11 MCHC 29.4 g/dL (30-55) L 05/24/24 02:11 RDW 15.7 % (12.1-15.1) H 05/24/24 02:11 Plt Count 307 10^3/cmm (157-399) 05/24/24 02:11 MPV 8.8 fL (7.4-10.4) 05/24/24 02:11 Neut % (Auto) 80.4 % 05/24/24 02:11 Lymph % (Auto) 10.4 % 05/24/24 02:11 [place] % (Auto) 5.3 % 05/24/24 02:11 Eos % (Auto) 3.2 % 05/24/24 02:11 Baso % (Auto) 0.4 % 05/24/24 02:11 Neut # (Auto) 7.37 10^3/uL (1.8-7.7) 05/24/24 02:11 Lymph # (Auto) 1.0 10^3/uL (0.8-4.8) 05/24/24 02:11 [place] # (Auto) 0.5 10^3/uL (0.2-0.9) 05/24/24 02:11 Eos # (Auto) 0.3 10^3/uL (0.0-0.8) 05/24/24 02:11 Baso # (Auto) 0.0 10^3/uL (0.0-0.1) 05/24/24 02:11 Nucleated RBC % (auto) 0 % 05/24/24 02:11 Nucleated RBCs # 0.0 /100WBC 05/24/24 02:11 Sodium 135 mmol/L (136-145) L 05/24/24 02:11 Potassium 3.8 mmol/L (3.5-5.1) 05/24/24 02:11 Chloride 98 mmol/L (98-107) 05/24/24 02:11 Carbon Dioxide 24 mmol/L (22-29) 05/24/24 02:11 Anion Gap 16.8 (5-19) 05/24/24 02:11 BUN 9 mg/dL (6-20) 05/24/24 02:11 Creatinine 0.8 mg/dL (0.7-1.2) 05/24/24 02:11 GFR Calculation 102.3 mL/min (90-130) 05/24/24 02:11 Glucose 114 mg/dL (65-115) 05/24/24 02:11 Calculated Osmolality 280 mOsm/kg (285-295) L 05/24/24 02:11 Calcium 8.9 mg/dL (8.5-10.5) 05/24/24 02:11 Magnesium 2.1 mg/dL (1.7-2.3) 05/24/24 02:11 Total Bilirubin 0.2 mg/dL (0.15-1.2) 05/24/24 02:11 AST 13 U/L (0-40) 05/24/24 02:11 ALT 8 U/L (0-41) 05/24/24 02:11 Alkaline Phosphatase 145 U/L (40-130) H 05/24/24 02:11 Total Protein 7.9 g/dL (6.6-8.7) 05/24/24 02:11 Albumin 3.2 g/dL (3.5-5.2) L 05/24/24 02:11 Globulin 4.7 g/dL (1.3-4.6) H 05/24/24 02:11 Lipase 33 U/L (13-60) 05/24/24 02:11 Urine Color Dark yellow (Yellow) 05/24/24 01:51 Urine Appearance Clear (CLEAR) 05/24/24 01:51 Urine pH 6 (5-7) 05/24/24 01:51 Ur Specific [place] 1.015 (1.005-1.030) 05/24/24 01:51 Urine Protein Trace (Negative) 05/24/24 01:51 Urine Glucose (UA) Norm (Normal) 05/24/24 01:51 Urine Ketones 1+ (Negative) H 05/24/24 01:51 Urine Blood 2+ (Negative) H 05/24/24 01:51 Urine Nitrate Negative (Negative) 05/24/24 01:51 Urine Bilirubin Neg (Negative) 05/24/24 01:51 Urine Urobilinogen 1 mg/dL (Negative) H 05/24/24 01:51 Ur Leukocyte Esterase Trace (Negative) H 05/24/24 01:51 Urine RBC 0-4 /hpf (0-2) H 05/24/24 01:51 Urine WBC 0-4 /hpf (0-5) H 05/24/24 01:51 Ur Squamous Epith Cells None /hpf (0-5) 05/24/24 01:51 Amorphous Sediment Not Reportable 05/24/24 01:51 Urine Bacteria Trace /hpf (NONE) 05/24/24 01:51 Urine Mucus 3+ /hpf 05/24/24 01:51 Urine Opiates Screen Negative ng/mL (Negative) 05/24/24 01:51 Ur Barbiturates Screen Negative ng/mL (Negative) 05/24/24 01:51 Ur Phencyclidine Scrn Negative ng/mL (Negative) 05/24/24 01:51 Ur Amphetamines Screen Negative ng/mL (Negative) 05/24/24 01:51 U Benzodiazepines Scrn Negative ng/mL (Negative) 05/24/24 01:51 Urine Cocaine Screen Negative ng/mL (Negative) 05/24/24 01:51 U Marijuana (THC) Screen Positive ng/mL (Negative) H 05/24/24 01:51 No radiology studies performed this visit Discharge Plan Discharge Patient Disposition: Home Clinical Impression: Gastroenteritis Abdominal pain Qualifiers: Abdominal location: generalized Qualified Code(s): R10.84 - Generalized abdominal pain Condition: Stable Prescriptions: No Action clonidine HCl 0.1 mg tablet 0.1 mg PO TID ondansetron 8 mg tablet,disintegrating 8 mg PO Q8H neomycin-polymyxin B-dexameth [Maxitrol] 3.5mg/mL-10,000 unit/mL-0.1 % drops,suspension 2 drp ophthalmic (eye) QID 7 Days Qty: 5 0RF Rx Instructions: Route-Ears to treat Otits Externa methadone 10 mg tablet 10 mg PO Q6H hydrocodone-acetaminophen 10-325 mg tablet 1 tab PO Q6H PRN (Reason: pain) 7 Days Qty: 30 0RF methylphenidate HCl 20 mg tablet 20 mg PO BID 30 Days Qty: 60 0RF gabapentin 300 mg capsule 600 mg PO TID PRN (Reason: chronic pain) 30 Days Qty: 180 5RF baclofen 10 mg tablet 10 mg PO TID Qty: 90 5RF mirtazapine 15 mg tablet 15 mg PO .q hs Qty: 30 5RF Discharge Orders: Discharge ED (Routine); Ordered 05/24/24 Ordered By: Sergio Wagner Referrals: Chuy Galindo MD [Primary Care Provider] - 1 week Patient Instructions: Abdominal Pain (ED) Activity Restrictions/Additional Instructions: Your lab work did not reveal any acute cause of your abdominal pain. Urinalysis showed you may have an infection or may be a contaminated specimen. Will wait till the culture to see what bacteria grows out and see if it is something other than skin luis angel. Otherwise drink plenty of fluids and follow-up with your primary care physician within next 7 to 10 days for further evaluation and treatment. Coding Level of Care Code ED Carpet Cutter for William Chadwick
[2024-05-24 02:09] LABS: Add Urine Microscopic? YES; Amphetamines Screen Urine Negative (Negative); Barbiturates Screen Urine Negative (Negative); Benzodiazepines Screen Urine Negative (Negative); Bilirubin Urine Neg (Negative); Blood Urine 2+ (Negative); Cocaine Screen Urine Negative (Negative); Glucose Urine UA Norm (Normal); Ketones Urine 1+ (Negative); Leukocyte Esterase Urine Trace (Negative); Nitrate Urine Negative (Negative); Opiate Screen Urine Negative (Negative); PCP Screen Urine Negative (Negative); Protein Urine Trace (Negative); Specific Gravity, Urine 1.015 (1.005-1.030); THC Screen Urine Positive (Negative); Urine Appearance Clear (CLEAR); Urine Color Dark Yellow (Yellow); Urobilinogen Urine 1 mg/dL (Negative); pH Urine 6 (5-7)
[2024-05-24 02:10] LABS: Add Urine Culture? No; Bacteria Urine TRACE /hpf; Mucus Urine 3+ /hpf; RBC Urine 0-4 /hpf (0-2); WBC Urine 0-4 /hpf (0-5)
[2024-05-24 02:35] LABS: Basophils % 0.4 %; Eosinophils # 0.3 10^3/uL (0.0-0.8); Eosinophils % 3.2 %; Lymphocytes % 10.4 %; Mean Corpuscular HGB Conc 29.4 g/dL (30-55); Mean Corpuscular Hemoglobin 23.5 pg (27-33); Mean Corpuscular Volume 79.7 fl (82-101); Mean Platelet Volume 8.8 fL (7.4-10.4); Monocytes # 0.5 10^3/uL (0.2-0.9); Monocytes % 5.3 %; Neutrophils # 7.37 10^3/uL (1.8-7.7); Neutrophils % 80.4 %; Nucleated Red Blood Cells % 0 %; Platelet Count 307 10^3/cmm (157-399); Red Blood Count 4.39 10^6/uL (3.85-5.65); Red Cell Distribution Width 15.7 % (12.1-15.1); White Blood Count 9.17 10^3/uL (3.29-11.43)
[2024-05-24 02:52] LABS: Alanine Aminotransferase 8 U/L (0-41); Albumin Level 3.2 g/dL (3.5-5.2); Alkaline Phosphatase 145 U/L (40-130); Anion Gap 16.8 (5-19); Aspartate Amino Transferase 13 U/L (0-40); Blood Urea Nitrogen 9 mg/dL (6-20); Calcium 8.9 mg/dL (8.5-10.5); Carbon Dioxide 24 mmol/L (22-29); Chloride 98 mmol/L (98-107); Creatinine Clr Calc Pharmacy 127.3531; Globulin 4.7 g/dL (1.3-4.6); Glomerular Filtration Rate 102.3 mL/min (90-130); Glucose 114 mg/dL (65-115); Lipase 33 U/L (13-60); Magnesium 2.1 mg/dL (1.7-2.3); Osmolality Calculated 280 mOsm/kg (285-295); Potassium 3.8 mmol/L (3.5-5.1); Sodium 135 mmol/L (136-145); Total Bilirubin 0.2 mg/dL (0.15-1.2); Total Protein 7.9 g/dL (6.6-8.7)
[2024-05-24 03:06] VITALS: PULSE 64; RESP 18; O2SAT 92
== END 2024-05-24 03:09 | disposition home or self-care (01) ==
PROVIDERS: Emergency Provider Emergency Medicine; PCP Family Medicine Adult Medicine
DX: K52.9 Noninfective gastroenteritis and colitis, unspecified (principal); R10.84 Generalized abdominal pain; F17.210 Nicotine dependence, cigarettes, uncomplicated
CPT/HCPCS: 36415; 80053; 80306; 81001; 83690; 83735; 85025; 99283

== ENCOUNTER 2024-07-30 10:29 | Emergency (ER) | payer MEDICAID, SELFPAY ==
[2024-07-30 10:30] VITALS: BP 121/79; PULSE 72; RESP 21; TEMP 36.7; O2SAT 98; BMI 22.3
--- NOTE | 2024-07-30 10:43 | W.ED.NAVMDI ---
HPI - Nausea/Vomiting/Diarrhea General: Chief complaint: Nausea/Vomiting/Diarrhea Stated complaint: N/V Time Seen by Provider: 07/30/24 10:31 History of Present Illness: 49-year-old male who comes in complaining of nausea and vomiting. He states he started having vomiting at 5 AM today. He has been unable to keep down his medications as well as any fluids or food this morning. He denies coffee-ground emesis or bright red bloody emesis. He states he has not had his Ativan for the past month and he feels like he is having a panic attack and is in withdrawal. He was unable to keep his methadone down this morning as well. He denies associated abdominal pain. No diarrhea. He does have associated diaphoresis but no fever. No ill contacts. He denies missing any doses of his medication or running out of his methadone. Associated nausea: Yes Associated symtoms: Reports diaphoresis and nausea; Denies altered mental status or dysuria Related Data Home Medications Medication Instructions Recorded Confirmed clonidine HCl 0.1 mg tablet 0.1 mg PO TID 02/16/23 06/28/24 methadone 10 mg tablet 10 mg PO Q6H 12/29/23 06/28/24 Previous Rx's Medication Instructions Recorded baclofen 10 mg tablet 10 mg PO TID Chronic pain s/p back 04/12/24 surgery #90 tabs gabapentin 300 mg capsule 600 mg (2 x 300 mg) PO TID PRN 04/12/24 chronic pain 30 days #180 caps mirtazapine 15 mg tablet 15 mg PO .q hs #30 tabs 04/28/24 methylphenidate HCl 20 mg tablet 20 mg PO BID add 30 days #60 tabs 07/08/24 promethazine 25 mg tablet 25 mg PO Q4H PRN nausea and 07/30/24 vomiting #20 tabs Allergies Allergy/AdvReac Type Severity Reaction Status Date / Time levetiracetam [From Keppra] Allergy ADR-Vomitin Verified 06/28/24 12:45 g trazodone Allergy ADR-Nightma Verified 06/28/24 12:45 re haloperidol [From Haldol] AdvReac Severe ADR-Anxiety Verified 06/28/24 12:45 Iodinated Contrast Media AdvReac Mild ADR-Itching Verified 06/28/24 12:45 contrast Allergy hives Uncoded 06/28/24 12:45 Review of Systems General: Reports: 10 or more systems reviewed and unremarkable except in HPI and below Const: Reports: diaphoresis; Denies: fever(s) or chills GI: Reports: nausea and vomiting; Denies: abdominal pain, hematemesis, coffee ground emesis, diarrhea, constipation or GI cramping : Denies: difficulty urinating or dysuria PFS ED PFSH: Medical History (Updated 07/30/24 @ 11:22 by Echo Lopez MD) Cauda equina compression Lumbar vertebral collapse ADD (attention deficit disorder) History of drainage of abscess multiple Trauma in childhood Social anxiety disorder Femoral acetabular impingement Bleeding per rectum History of substance abuse Narcotic abuse Surgical History History of liver biopsy 2013 History of colonoscopy 2009 History of facial surgery 2013 Social History Smoking and tobacco/nicotine status: current every day tobacco/nicotine user cigarettes Packs smoked per day: 1 Years cigarettes smoked: 30 Quit status (tobacco/nicotine): has tried quititng Number of times tried to quit tobacco: 2 Second hand smoke exposure: Yes Alcohol intake: current Substance/Drug Use: current Substance/Drug use frequency: daily Other substance/drug use details: Fentanyl Current gender identity: Male Physical Exam Narrative: EXAM NARRATIVE: Patient is diaphoretic, appears chronically ill Const: EXAM LIMITATIONS: no altered mental status GENERAL APPEARANCE: cooperative and well developed HENMT: COMMON NORMALS: normocephalic HEAD & SCALP: normocephalic Eye: COMMON NORMALS: Equal, round and reactive pupils present PUPIL: Yes Equal, round and reactive pupils present Neck/C-Spine: COMMON NORMALS: supple Resp: COMMON NORMALS: normal respiratory effort and clear to auscultation bilaterally AUSCULTATION: clear to auscultation bilaterally Cardio: COMMON NORMALS: regular rate and regular rhythm RATE: regular rate RHYTHM: regular rhythm GI: COMMON NORMALS: Normal to inspection, nondistended, normoactive bowel sounds present, Soft to palpation and non-tender PALPATION: Yes Soft to palpation Extremity: COMMON NORMALS: normal to inspection and no pedal edema Psych: APPEARANCE: Yes unkempt MOOD & AFFECT: Yes euthymic mood Course ED course: Patient's been given 2 mg of IM Ativan as well as 25 mg of IM Phenergan. He is feeling significantly better. No further vomiting. Patient states he feels like he can tolerate p.o. fluids. Will p.o. challenge the patient if he has no further vomiting, will discharge the patient home. Reevaluation(s): Reevaluation #1: Patient feeling significantly better. Nausea resolved. Time: 11:21 Vital Signs: Vital signs: Vital Signs Temperature 98.1 F 07/30/24 10:30 Pulse Rate 72 07/30/24 10:30 Respiratory Rate 21 H 07/30/24 10:30 Blood Pressure 121/79 07/30/24 10:30 Pulse Oximetry 98 07/30/24 10:30 Oxygen Delivery Me thod Room Air 07/30/24 10:30 MDM - Nausea/Vomiting/Diarrhea Medical Decision Making 49-year-old male who presents with nausea and vomiting onset at 5 AM this morning. 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 He also has a history of being on Ativan, not having had over the past month. Doubt that this is benzodiazepine withdrawal if it has been over a month since he had his benzodiazepines. Certainly there is a possibility that he has run out of his methadone and is in opiate withdrawal. Patient is declining IV and is wanting IM medications. Will try giving him IM Phenergan for nausea and IM Ativan and then p.o. challenge the patient. Lab Data Laboratory Results POC Glucose 145 mg/dL (70-110) H 07/30/24 10:53 No radiology studies performed this visit Discharge Plan Discharge Patient Disposition: Home Clinical Impression: Vomiting Condition: Stable Prescriptions: New promethazine 25 mg tablet 25 mg PO Q4H PRN (Reason: nausea and vomiting) Qty: 20 0RF No Action clonidine HCl 0.1 mg tablet 0.1 mg PO TID methadone 10 mg tablet 10 mg PO Q6H gabapentin 300 mg capsule 600 mg PO TID PRN (Reason: chronic pain) 30 Days Qty: 180 5RF baclofen 10 mg tablet 10 mg PO TID Qty: 90 5RF mirtazapine 15 mg tablet 15 mg PO .q hs Qty: 30 5RF methylphenidate HCl 20 mg tablet 20 mg PO BID 30 Days Qty: 60 0RF Discharge Orders: Discharge ED (Routine); Ordered 07/30/24 Ordered By: Echo Lopez Referrals: Chuy Galindo MD [Primary Care Provider] - Discharge Diet: Advance as tolerated Discharge Activity: Resume usual activity Patient Instructions: Opioid Safety, Pain Management Activity Restrictions/Additional Instructions: Go home and take your regular medications. Take the Phenergan every 4-6 hours as needed for nausea and vomiting. Make sure you are drinking plenty fluids. Return if you have persistent vomiting. Follow-up as needed with your primary care provider Coding Level of Care Code ED Supervisor [employer] for William Chadwick
[2024-07-30] MEDS: promethazine 25 mg/mL SDV 1 mL IM (10:54)
[2024-07-30] MEDS: LORazepam 2 mg/mL INJ 1 mL IM (10:55)
[2024-07-30 11:02] LABS: Glucose Point of Care 145 mg/dL (70-110)
== END 2024-07-30 12:02 | disposition home or self-care (01) ==
PROVIDERS: Emergency Provider Emergency Medicine; PCP Family Medicine Adult Medicine
DX: R11.11 Vomiting without nausea (principal); F11.20 Opioid dependence, uncomplicated; F17.210 Nicotine dependence, cigarettes, uncomplicated
CPT/HCPCS: 36416; 82962; 96372; 99284; J2060; J2550

== ENCOUNTER 2024-08-12 04:49 | Emergency (ER) | payer MEDICAID, SELFPAY ==
--- NOTE | 2024-08-12 04:56 | ED_ITS ---
HPI - Back Pain/Injury General: Chief Complaint: Back Pain/Injury Stated Complaint: Back pain Time Seen by Provider: 08/12/24 04:50 History of Present Illness: 49-year-old male with history of chronic pain and narcotic dependence who presents to the emergency room with back pain and concern for baclofen withdrawal. He says he does not feel good he is having back pain. He accidentally ran out of his baclofen. He thought he could make it till this afternoon when he is going to get it filled. No saddle numbness, no urinary retention or incontinence, no focal motor deficit, no sensory deficit. no recent fever. no cough. no shortness of breath. no chest pain. no abdominal pain. no nausea or vomiting. no dysuria. no altered mental status. no edema. Related Data Home Medications Medication Instructions Recorded Confirmed clonidine HCl 0.1 mg tablet 0.1 mg PO TID 02/16/23 08/11/24 methadone 10 mg tablet 10 mg PO Q6H 12/29/23 08/11/24 Previous Rx's Medication Instructions Recorded baclofen 10 mg tablet 10 mg PO TID Chronic pain s/p back 04/12/24 surgery #90 tabs gabapentin 300 mg capsule 600 mg (2 x 300 mg) PO TID PRN 04/12/24 chronic pain 30 days #180 caps mirtazapine 15 mg tablet 15 mg PO .q hs #30 tabs 04/28/24 promethazine 25 mg tablet 25 mg PO Q4H PRN nausea and 07/30/24 vomiting #20 tabs methylphenidate HCl 20 mg tablet 20 mg PO BID add 30 days #60 tabs 08/08/24 Allergies Allergy/AdvReac Type Severity Reaction Status Date / Time levetiracetam [From Keppra] Allergy ADR-Vomitin Verified 06/28/24 12:45 g trazodone Allergy ADR-Nightma Verified 06/28/24 12:45 re haloperidol [From Haldol] AdvReac Severe ADR-Anxiety Verified 06/28/24 12:45 Iodinated Contrast Media AdvReac Mild ADR-Itching Verified 06/28/24 12:45 contrast Allergy hives Uncoded 06/28/24 12:45 Review of Systems Narrative: Constitutional symptoms: Negative except as documented in HPI. Skin symptoms: Negative except as documented in HPI. Eye symptoms: Negative except as documented in HPI. ENMT symptoms: Negative except as documented in HPI. Respiratory symptoms: Negative except as documented in HPI. Cardiovascular symptoms: Negative except as documented in HPI. Gastrointestinal symptoms: Negative except as documented in HPI. Genitourinary symptoms: Negative except as documented in HPI. Musculoskeletal symptoms: Negative except as documented in HPI. Neurologic symptoms: Negative except as documented in HPI. Psychiatric symptoms: Negative except as documented in HPI. Endocrine symptoms: Negative except as documented in HPI. PFS ED PFSH: Medical History Cauda equina compression Lumbar vertebral collapse ADD (attention deficit disorder) History of drainage of abscess multiple Trauma in childhood Social anxiety disorder Femoral acetabular impingement Bleeding per rectum History of substance abuse Narcotic abuse Surgical History History of liver biopsy 2013 History of colonoscopy 2009 History of facial surgery 2014 Social History Smoking and tobacco/nicotine status: current every day tobacco/nicotine user cigarettes Packs smoked per day: 1 Years cigarettes smoked: 30 Quit status (tobacco/nicotine): has tried quititng Number of times tried to quit tobacco: 2 Second hand smoke exposure: Yes Alcohol intake: current Substance/Drug Use: current Substance/Drug use frequency: daily Other substance/drug use details: Fentanyl Current gender identity: Male Physical Exam 2 Narrative: EXAM NARRATIVE: General: Alert, no acute distress. Head: Normocephalic Neck: Trachea midline Eye: Extraocular movements are intact. Ears, nose, mouth and throat: Oral mucosa moist Respiratory: Respirations are non-labored Musculoskeletal: Normal ROM Back: no step off, no focal tenderness, some paraspinal muscle tenderness Neurological: Alert and oriented to person, place, time, and situation, No focal neurological deficit observed. Psychiatric: Cooperative, appropriate mood & affect. MDM - Back Pain/Injury Medical Decision Making Assessment and plan: Chronic back pain ? P.o. Ativan and p.o. baclofen here in the emergency room. Patient is complaining of anxiety - Discharged home - Discussed plan with patient. Answered any questions. - Evaluation and treatment of this problem were appropriate in the emergency setting. No radiology studies performed this visit Discharge Plan Discharge Patient Disposition: Home Clinical Impression: Back pain Condition: Stable Prescriptions: No Action clonidine HCl 0.1 mg tablet 0.1 mg PO TID methadone 10 mg tablet 10 mg PO Q6H gabapentin 300 mg capsule 600 mg PO TID PRN (Reason: chronic pain) 30 Days Qty: 180 5RF baclofen 10 mg tablet 10 mg PO TID Qty: 90 5RF mirtazapine 15 mg tablet 15 mg PO .q hs Qty: 30 5RF methylphenidate HCl 20 mg tablet 20 mg PO BID 30 Days Qty: 60 0RF promethazine 25 mg tablet 25 mg PO Q4H PRN (Reason: nausea and vomiting) Qty: 20 0RF Discharge Orders: Discharge ED (Routine); Ordered 08/12/24 Ordered By: Soco Alanis Referrals: Chuy Galindo MD [Primary Care Provider] - Discharge Diet: Usual diet Discharge Activity: Increase activity as tolerated Patient Instructions: Chronic Pain (ED) Activity Restrictions/Additional Instructions: You will need to have your baclofen refilled by your prescribing physician. Thank you for choosing [facility] for your healthcare needs today. Please realize this is an emergency room and that we are providing you with a medical screening exam and this may not be complete and all inclusive of all the testing and or work up that you may need to determine your ailment or severity of your illness. You have been screened and evaluated and felt safe for discharge. Health conditions do change or evolve sometimes and as such it is important that you follow up with your Primary Doctor to be re checked, 3-5 days is a general good time frame for follow up. You are always welcome to return to the ED for re assessment if your symptoms are worsening or you have new concerns Coding Level of Care Code ED Press Leader for William Chadwick
[2024-08-12] MEDS: baclofen 10 mg Tablet PO (04:57)
[2024-08-12] MEDS: LORazepam 1 mg Tablet PO (04:57)
[2024-08-12 05:02] VITALS: BP 107/58; PULSE 61; RESP 16; O2SAT 95
[2024-08-12 05:03] VITALS: BP 107/58; PULSE 65; RESP 16; O2SAT 97
== END 2024-08-12 05:27 | disposition home or self-care (01) ==
PROVIDERS: Emergency Provider Emergency Medicine; PCP Family Medicine Adult Medicine
DX: M54.9 Dorsalgia, unspecified (principal); F17.210 Nicotine dependence, cigarettes, uncomplicated
CPT/HCPCS: 99283

== ENCOUNTER 2024-09-07 16:56 | Emergency (ER) | payer MEDICAID, SELFPAY ==
[2024-09-07 16:59] VITALS: BP 136/94; PULSE 82; RESP 13; TEMP 37; O2SAT 93; BMI 25.7
[2024-09-07 17:19] VITALS: BP 126/85; PULSE 84; O2SAT 93
--- NOTE | 2024-09-07 17:45 | W.ED.GENADLT ---
HPI - General Adult General: Chief complaint: General Medical Stated complaint: Anxiety, Constipation Time Seen by Provider: 09/07/24 17:15 Source: patient Mode of arrival: EMS Limitations: no limitations History of Present Illness: Patient is a 49-year-old male here for complaint of constipation and anxiety. Patient states he has been suffering from constipation for several months. He is on methadone. He feels like he has hard pellet stools and sometimes when he wipes he notices there is yellow on the toilet paper. Patient feels like when he strains hard to defecate he gets scared that is going to hurt and this triggers an anxiety/panic attack which is what he states happened today. He reportedly has a history of diverticulitis although I cannot find any documentation of this in his chart. Patient states he is not having any abdominal pain at the time of my examination. He is visibly anxious upon arrival. His vital signs are normal/stable. Onset (ago): month(s) (constipation) Relieving factors: none Exacerbating factors: none Associated symptoms: Reports nausea; Deny chest pain, dyspnea, headache(s), malaise, rash or vomiting Treatments prior to arrival: none Related Data Home Medications Medication Instructions Recorded Confirmed clonidine HCl 0.1 mg tablet 0.1 mg PO TID 02/16/23 08/16/24 methadone 10 mg tablet 10 mg PO Q6H 12/29/23 08/16/24 Previous Rx's Medication Instructions Recorded baclofen 10 mg tablet 10 mg PO TID Chronic pain s/p back 04/12/24 surgery #90 tabs gabapentin 300 mg capsule 600 mg (2 x 300 mg) PO TID PRN 04/12/24 chronic pain 30 days #180 caps mirtazapine 15 mg tablet 15 mg PO .q hs #30 tabs 04/28/24 promethazine 25 mg tablet 25 mg PO Q4H PRN nausea and 07/30/24 vomiting #20 tabs methylphenidate HCl 20 mg tablet 20 mg PO BID add 30 days #60 tabs 09/07/24 Allergies Allergy/AdvReac Type Severity Reaction Status Date / Time levetiracetam [From Keppra] Allergy ADR-Vomitin Verified 09/07/24 17:09 g trazodone Allergy ADR-Nightma Verified 09/07/24 17:09 re haloperidol [From Haldol] AdvReac Severe ADR-Anxiety Verified 09/07/24 17:09 Iodinated Contrast Media AdvReac Mild ADR-Itching Verified 09/07/24 17:09 contrast Allergy hives Uncoded 09/07/24 17:09 Review of Systems Const: Denies: fever(s), chills, body aches, fatigue or malaise Card: Denies: chest pain Resp: Denies: dyspnea GI: Reports: nausea and constipation; Denies: abdominal pain, vomiting, hematemesis, rectal pain, hematochezia or melena : Denies: flank pain, difficulty urinating, dysuria, urinary frequency, urinary urgency or urinary hesitancy Musc: Denies: neck pain, back pain, extremity pain, extremity swelling, joint pain or joint swelling Skin/Breast: Denies: rash Neuro: Denies: headache(s), numbness in extremities, weakness in extremities, sensory changes or dizziness Psych: Reports: anxiety; Denies: suicidal ideation PFSH ED PFSH: Medical History Cauda equina compression Lumbar vertebral collapse ADD (attention deficit disorder) History of drainage of abscess multiple Trauma in childhood Social anxiety disorder Femoral acetabular impingement Bleeding per rectum History of substance abuse Narcotic abuse Surgical History History of liver biopsy 2013 History of colonoscopy 2009 History of facial surgery 2014 Social History Smoking and tobacco/nicotine status: never used tobacco/nicotine Quit status (tobacco/nicotine): has tried quititng Number of times tried to quit tobacco: 2 Second hand smoke exposure: Yes Alcohol intake: current Substance/Drug Use: current Substance/Drug use frequency: daily Other substance/drug use details: Fentanyl Current gender identity: Male Physical Exam Const: COMMON NORMALS: patient oriented x3, no limitations, alert and well nourished GENERAL APPEARANCE: cooperative and anxious ORIENTATION/CONSCIOUSNESS: Yes awake, Yes oriented to person, Yes oriented to place and Yes oriented to time HENMT: TEETH & GINGIVA: Yes edentulous and Yes poor dentition Eye: COMMON NORMALS: no scleral icterus Resp: COMMON NORMALS: normal respiratory effort and clear to auscultation bilaterally AUSCULTATION: clear to auscultation bilaterally Cardio: COMMON NORMALS: regular rate and regular rhythm RATE: regular rate RHYTHM: regular rhythm GI: COMMON NORMALS: Normal to inspection, nondistended, normoactive bowel sounds present, Soft to palpation, non-tender, No hepatosplenomegaly present and no masses INSPECTION: Yes normal to inspection PALPATION: Yes Soft to palpation and Yes No hepatosplenomegaly present Neuro: COMMON NORMALS: patient oriented x3 SENSORIUM/ORIENTATION: Yes alert, Yes oriented to person, Yes oriented to place and Yes oriented to time Course Vital Signs: Vital signs: Vital Signs Temperature 98.6 F 09/07/24 16:59 Pulse Rate 72 09/07/24 18:31 Respiratory Rate 13 09/07/24 16:59 Blood Pressure 116/75 09/07/24 18:31 Pulse Oximetry 95 09/07/24 18:31 Oxygen Delivery Me thod Room Air 09/07/24 18:31 MDM - General Adult Medical Decision Making Patient is not having any abdominal pain. Abdomen is palpated without any tenderness. Vital signs are stable. Blood work showing a normal white count. He has chronic anemia. Other blood work is overall nonactionable. XR showing a large colonic stool burden. This probably secondary to his methadone use. There is no indication at this time for further advanced imaging. Patient's anxiety is much improved after IM Ativan. Of case management try to get him a follow-up appoint with primary care. Return ED precautions given. Medical Records I reviewed the patient's medical records. Lab Data I reviewed the patient's lab results. 09/07/24 18:22 09/07/24 18:04 Radiology Impressions Abdomen X-Ray 09/07/24 17:56 IMPRESSION: Large colonic stool burden. Laboratory Results WBC 8.75 10^3/uL (3.29-11.43) 09/07/24 18:22 Corrected WBC Cancelled 09/07/24 18:04 RBC 3.92 10^6/uL (3.85-5.65) 09/07/24 18:22 Hgb 8.80 g/dL (11.27-16.99) L 09/07/24 18:22 Hct 30.4 % (37-53) L 09/07/24 18:22 MCV 77.6 fl (82-101) L 09/07/24 18:22 MCH 22.4 pg (27-33) L 09/07/24 18: MCHC 28.9 g/dL (30-55) L 09/07/24 18:22 RDW 16.2 % (12.1-15.1) H 09/07/24 18:22 Plt Count 350 10^3/cmm (157-399) 09/07/24 18:22 MPV 8.9 fL (7.4-10.4) 09/07/24 18:22 Gran % Cancelled 09/07/24 18:04 Neut % (Auto) 86.7 % 09/07/24 18:22 Lymph % (Auto) 8.2 % 09/07/24 18:22 [place] % (Auto) 3.2 % 09/07/24 18: Eos % (Auto) 0.7 % 09/07/24 18: Baso % (Auto) 0.6 % 09/07/24 18:22 Neut # (Auto) 7.59 10^3/uL (1.8-7.7) 09/07/24 18:22 Lymph # (Auto) 0.7 10^3/uL (0.8-4.8) L 09/07/24 18:22 [place] # (Auto) 0.3 10^3/uL (0.2-0.9) 09/07/24 18:22 Eos # (Auto) 0.1 10^3/uL (0.0-0.8) 09/07/24 18:22 Baso # (Auto) 0.1 10^3/uL (0.0-0.1) 09/07/24 18:22 Absolute Gran (auto) Cancelled 09/07/24 18:04 Nucleated RBC % (auto) 0 % 09/07/24 18: Nucleated RBCs # 0.0 /100WBC 09/07/24 18:22 Sodium 130 mmol/L (136-145) L 09/07/24 18:04 Potassium 4.6 mmol/L (3.5-5.1) 09/07/24 18:04 Chloride 95 mmol/L (98-107) L 09/07/24 18:04 Carbon Dioxide 26 mmol/L (22-29) 09/07/24 18:04 Anion Gap 13.6 (5-19) 09/07/24 18:04 BUN 10 mg/dL (6-20) 09/07/24 18:04 Creatinine 0.9 mg/dL (0.7-1.2) 09/07/24 18:04 GFR Calculation 89.3 mL/min (90-130) L 09/07/24 18:04 Glucose 95 mg/dL (65-115) 09/07/24 18:04 Calculated Osmolality 269 mOsm/kg (285-295) L 09/07/24 18:04 Calcium 8.8 mg/dL (8.5-10.5) 09/07/24 18:04 Total Bilirubin 0.3 mg/dL (0.15-1.2) 09/07/24 18:04 AST 17 U/L (0-40) 09/07/24 18:04 ALT 11 U/L (0-41) 09/07/24 18:04 Alkaline Phosphatase 120 U/L (40-130) 09/07/24 18:04 Total Protein 8.4 g/dL (6.6-8.7) 09/07/24 18:04 Albumin 3.5 g/dL (3.5-5.2) 09/07/24 18:04 Globulin 4.9 g/dL (1.3-4.6) H 09/07/24 18:04 All radiology interpretation(s) finalized by discharge Discharge Plan Discharge Patient Disposition: Home Clinical Impression: Chronic constipation, Anxiety Condition: Stable Prescriptions: No Action clonidine HCl 0.1 mg tablet 0.1 mg PO TID methadone 10 mg tablet 10 mg PO Q6H gabapentin 300 mg capsule 600 mg PO TID PRN (Reason: chronic pain) 30 Days Qty: 180 5RF baclofen 10 mg tablet 10 mg PO TID Qty: 90 5RF mirtazapine 15 mg tablet 15 mg PO .q hs Qty: 30 5RF methylphenidate HCl 20 mg tablet 20 mg PO BID 30 Days Qty: 60 0RF promethazine 25 mg tablet 25 mg PO Q4H PRN (Reason: nausea and vomiting) Qty: 20 0RF Discharge Orders: Discharge ED (Routine); Ordered 09/07/24 Ordered By: Merry Flores Referrals: Chuy Galindo MD [Primary Care Provider] - Patient Instructions: Polyethylene Glycol 3350 (By mouth), Constipation (DC), High Fiber Diet (ED) Activity Restrictions/Additional Instructions: As we discussed, I will try to have case management get you an appointment to see your primary care provider for ER follow-up. You may begin doing [id number] bowel regimen such as a capful of MiraLAX twice daily, Colace twice daily, Senokot, or other preparations such as milk of magnesia and/or mag citrate. Coding Level of Care Code ED Polysomnograph Tech for William Chadwick
--- NOTE | 2024-09-07 17:56 | XRR_ITS ---
PROCEDURE INFORMATION: Exam: XR Abdomen Exam date and time: 09/07/2024 6:47 PM Age: 49 years old Clinical indication: Constipation TECHNIQUE: Imaging protocol: Radiologic exam of the abdomen. Views: 2 Views. Upright and supine views. COMPARISON: CT abdomen pelvis w con* [id number] 09/13/2020 5:48 PM FINDINGS: Gastrointestinal tract: Large colonic stool burden. No bowel dilation. Intraperitoneal space: Normal. No free air. Bones/joints: Multilevel posterior spinal fusion hardware noted within the lower thoracolumbar spine. XR/XR abdomen min 2V [id number] IMPRESSION: Large colonic stool burden.
[2024-09-07 18:26] LABS: Alanine Aminotransferase 11 U/L (0-41); Albumin Level 3.5 g/dL (3.5-5.2); Alkaline Phosphatase 120 U/L (40-130); Aspartate Amino Transferase 17 U/L (0-40); Blood Urea Nitrogen 10 mg/dL (6-20); Calcium 8.8 mg/dL (8.5-10.5); Carbon Dioxide 26 mmol/L (22-29); Chloride 95 mmol/L (98-107); Creatinine Clr Calc Pharmacy 109.3694; Globulin 4.9 g/dL (1.3-4.6); Glomerular Filtration Rate 89.3 mL/min (90-130); Glucose 95 mg/dL (65-115); Osmolality Calculated 269 mOsm/kg (285-295); Sodium 130 mmol/L (136-145); Total Bilirubin 0.3 mg/dL (0.15-1.2); Total Protein 8.4 g/dL (6.6-8.7)
[2024-09-07 18:29] LABS: Anion Gap 13.6 (5-19); Potassium 4.6 mmol/L (3.5-5.1)
[2024-09-07 18:31] VITALS: BP 116/75; PULSE 72; O2SAT 95
[2024-09-07] MEDS: LORazepam 2 mg/mL INJ 1 mL IM (18:43)
[2024-09-07] MEDS: promethazine 25 mg/mL SDV 1 mL IM (18:43)
[2024-09-07 20:02] LABS: Basophils # 0.1 10^3/uL (0.0-0.1); Basophils % 0.6 %; Eosinophils # 0.1 10^3/uL (0.0-0.8); Eosinophils % 0.7 %; Hematocrit 30.4 % (37-53); Lymphocytes # 0.7 10^3/uL (0.8-4.8); Lymphocytes % 8.2 %; Mean Corpuscular HGB Conc 28.9 g/dL (30-55); Mean Corpuscular Hemoglobin 22.4 pg (27-33); Mean Corpuscular Volume 77.6 fl (82-101); Mean Platelet Volume 8.9 fL (7.4-10.4); Monocytes # 0.3 10^3/uL (0.2-0.9); Monocytes % 3.2 %; Neutrophils # 7.59 10^3/uL (1.8-7.7); Neutrophils % 86.7 %; Nucleated Red Blood Cells % 0 %; Platelet Count 350 10^3/cmm (157-399); Red Blood Count 3.92 10^6/uL (3.85-5.65); Red Cell Distribution Width 16.2 % (12.1-15.1); White Blood Count 8.75 10^3/uL (3.29-11.43)
[2024-09-07 20:48] VITALS: BP 87/55; PULSE 47; O2SAT 96
[2024-09-07 21:40] VITALS: BP 82/54; PULSE 50; RESP 16; O2SAT 96
[2024-09-07 23:34] VITALS: BP 92/66; PULSE 89; RESP 18; O2SAT 94
[2024-09-08 00:12] VITALS: BP 96/59; PULSE 60; RESP 18; O2SAT 94
[2024-09-08 00:37] VITALS: BP 91/53; PULSE 54; RESP 16; O2SAT 93
== END 2024-09-08 00:32 | disposition home or self-care (01) ==
PROVIDERS: Emergency Provider Physician Assistant; PCP Family Medicine Adult Medicine
DX: K59.09 Other constipation (principal); F41.9 Anxiety disorder, unspecified; Z87.891 Personal history of nicotine dependence
CPT/HCPCS: 36415; 74019; 80053; 85025; 96372; 99284; J2060; J2550

== ENCOUNTER 2024-09-17 14:42 | Emergency (ER) | payer MEDICAID, SELFPAY ==
[2024-09-17 14:44] VITALS: BP 152/79; PULSE 71; RESP 16; TEMP 36.8; O2SAT 93; BMI 24.4
--- NOTE | 2024-09-17 14:47 | ED_ITS ---
HPI - Abdominal Pain 2 General: Chief Complaint: Abdominal Pain Stated Complaint: abd pain; anxiety Time Seen by Provider: 09/17/24 14:43 Source: patient and EMS Mode of arrival: EMS Limitations: no limitations History of Present Illness: 49-year-old male states that he has been having lower abdominal pain. States pains been sharp in nature he is also been feeling extremely anxious states he is got a history of anxiety. Denies any fever denies any diarrhea. Associated Symptoms: Reports nausea; Denies chills, diarrhea, dysuria, fever(s) and vomiting Related Data Home Medications Medication Instructions Recorded Confirmed clonidine HCl 0.1 mg tablet 0.1 mg PO TID 02/16/23 08/16/24 methadone 10 mg tablet 10 mg PO Q6H 12/29/23 08/16/24 Previous Rx's Medication Instructions Recorded baclofen 10 mg tablet 10 mg PO TID Chronic pain s/p back 04/12/24 surgery #90 tabs gabapentin 300 mg capsule 600 mg (2 x 300 mg) PO TID PRN 04/12/24 chronic pain 30 days #180 caps mirtazapine 15 mg tablet 15 mg PO .q hs #30 tabs 04/28/24 promethazine 25 mg tablet 25 mg PO Q4H PRN nausea and 07/30/24 vomiting #20 tabs methylphenidate HCl 20 mg tablet 20 mg PO BID add 30 days #60 tabs 09/07/24 Allergies Allergy/AdvReac Type Severity Reaction Status Date / Time levetiracetam [From Keppra] Allergy ADR-Vomitin Verified 09/07/24 17:09 g trazodone Allergy ADR-Nightma Verified 09/07/24 17:09 re haloperidol [From Haldol] AdvReac Severe ADR-Anxiety Verified 09/07/24 17:09 Iodinated Contrast Media AdvReac Mild ADR-Itching Verified 09/07/24 17:09 contrast Allergy hives Uncoded 09/07/24 17:09 Review of Systems 2 Const: Denies: fever(s), chills, body aches or change in appetite ENMT: Denies: throat pain or dental pain Card: Denies: chest pain Resp: Denies: dyspnea GI: Reports: abdominal pain and nausea; Denies: vomiting or diarrhea : Denies: dysuria Musc: Denies: neck pain or back pain Skin/Breast: Denies: rash Psych: Reports: anxiety PFSH ED 2 PFSH: Medical History Cauda equina compression Lumbar vertebral collapse ADD (attention deficit disorder) History of drainage of abscess multiple Trauma in childhood Social anxiety disorder Femoral acetabular impingement Bleeding per rectum History of substance abuse Narcotic abuse Surgical History History of liver biopsy 2013 History of colonoscopy 2009 History of facial surgery 2014 Social History Smoking and tobacco/nicotine status: never used tobacco/nicotine Quit status (tobacco/nicotine): has tried quititng Number of times tried to quit tobacco: 2 Second hand smoke exposure: Yes Alcohol intake: current Substance/Drug Use: current Substance/Drug use frequency: daily Other substance/drug use details: Fentanyl Current gender identity: Male Physical Exam 2 Const: COMMON NORMALS: patient oriented x3 GENERAL APPEARANCE: anxious HENMT: COMMON NORMALS: normocephalic and atraumatic HEAD & SCALP: n ormocephalic and atraumatic Eye: COMMON NORMALS: conjunctivae normal CONJUNCTIVA: Yes conjunctivae normal Neck/C-Spine: COMMON NORMALS: full ROM and supple Chest: COMMONS NORMALS: normal inspection of the chest Resp: COMMON NORMALS: normal respiratory effort Cardio: COMMON NORMALS: regular rate, regular rhythm and No murmurs present (Cardio) RATE: regular rate RHYTHM: regular rhythm GI: COMMON NORMALS: Normal to inspection, nondistended, normoactive bowel sounds present, Soft to palpation and no masses PALPATION: Yes Soft to palpation OTHER: lower abd tenderness Extremity: COMMON NORMALS: normal to inspection and full ROM Neuro: COMMON NORMALS: patient oriented x3, moves all extremities and no focal motor deficits Psych: COMMON NORMALS: mental status grossly normal, Normal thought process present and cooperative THOUGHT PROCESS: Normal thought process present Skin: COMMON NORMALS: no rashes or lesions noted and no wounds GENERAL SKIN EXAM: no rashes or lesions noted Course 2 Vital Signs: Vital signs: Vital Signs Temperature 98.2 F 09/17/24 14:44 Pulse Rate 54 L 09/17/24 18:12 Respiratory Rate 16 09/17/24 14:44 Blood Pressure 133/79 09/17/24 18:12 Pulse Oximetry 95 09/17/24 18:12 Oxygen Delivery Me thod Room Air 09/17/24 14:44 MDM - Abdominal Pain Medical Decision Making Patient presents with abdominal pain along with anxiety imaging here is normal blood works normal he feels much improved here after Ativan he is stable for discharge follow-up PCP return if worsening. Medical Records I reviewed the patient's medical records. Lab Data I reviewed the patient's lab results. 09/17/24 15:13 09/17/24 15:13 Labs/Radiology: Radiology Impressions Abdomen/Pelvis CT 09/17/24 14:51 IMPRESSION: 1. No definite acute intra-abdominal or pelvic pathology on this noncontrast exam. 2. Remote lumbar spinal trauma status post fixation. Age indeterminate periprosthetic lucency noted along the course of the interpedicular screws at L4. No acute osseous injury. 3. Small scattered retroperitoneal lymph nodes likely related to prior surgical change although nonspecific. Laboratory Results WBC 9.34 10^3/uL (3.29-11.43) 09/17/24 15:13 RBC 4.37 10^6/uL (3.85-5.65) 09/17/24 15:13 Hgb 9.50 g/dL (11.27-16.99) L 09/17/24 15:13 Hct 32.7 % (37-53) L 09/17/24 15:13 MCV 74.8 fl (82-101) L 09/17/24 15:13 MCH 21.7 pg (27-33) L 09/17/24 15:13 MCHC 29.1 g/dL (30-55) L 09/17/24 15:13 RDW 16.0 % (12.1-15.1) H 09/17/24 15:13 Plt Count 386 10^3/cmm (157-399) 09/17/24 15:13 MPV 9.4 fL (7.4-10.4) 09/17/24 15:13 Neut % (Auto) 86.5 % 09/17/24 15:13 Lymph % (Auto) 8.2 % 09/17/24 15:13 [place] % (Auto) 3.6 % 09/17/24 15:13 Eos % (Auto) 1.1 % 09/17/24 15:13 Baso % (Auto) 0.3 % 09/17/24 15:13 Neut # (Auto) 8.07 10^3/uL (1.8-7.7) H 09/17/24 15:13 Lymph # (Auto) 0.8 10^3/uL (0.8-4.8) 09/17/24 15:13 [place] # (Auto) 0.3 10^3/uL (0.2-0.9) 09/17/24 15:13 Eos # (Auto) 0.1 10^3/uL (0.0-0.8) 09/17/24 15:13 Baso # (Auto) 0.0 10^3/uL (0.0-0.1) 09/17/24 15:13 Nucleated RBC % (auto) 0 % 09/17/24 15:13 Nucleated RBCs # 0.0 /100WBC 09/17/24 15:13 Sodium 136 mmol/L (136-145) 09/17/24 15:13 Potassium 3.7 mmol/L (3.5-5.1) 09/17/24 15:13 Chloride 99 mmol/L (98-107) 09/17/24 15:13 Carbon Dioxide 24 mmol/L (22-29) 09/17/24 15:13 Anion Gap 16.7 (5-19) 09/17/24 15:13 BUN 11 mg/dL (6-20) 09/17/24 15:13 Creatinine 0.9 mg/dL (0.7-1.2) 09/17/24 15:13 GFR Calculation 89.3 mL/min (90-130) L 09/17/24 15:13 Glucose 117 mg/dL (65-115) H 09/17/24 15:13 Calculated Osmolality 282 mOsm/kg (285-295) L 09/17/24 15:13 Calcium 8.8 mg/dL (8.5-10.5) 09/17/24 15:13 Total Bilirubin 0.3 mg/dL (0.15-1.2) 09/17/24 15:13 AST 14 U/L (0-40) 09/17/24 15:13 ALT 8 U/L (0-41) 09/17/24 15:13 Alkaline Phosphatase 103 U/L (40-130) 09/17/24 15:13 Total Protein 8.5 g/dL (6.6-8.7) 09/17/24 15:13 Albumin 3.6 g/dL (3.5-5.2) 09/17/24 15:13 Globulin 4.9 g/dL (1.3-4.6) H 09/17/24 15:13 Lipase 11 U/L (13-60) L 09/17/24 15:13 Urine Color Yellow (Yellow) 09/17/24 15:29 Urine Appearance Clear (CLEAR) 09/17/24 15: Urine pH 5.5 (5-7) 09/17/24 15:29 Ur Specific [place] 1.019 (1.005-1.030) 09/17/24 15: Urine Protein 1+ (Negative) A 09/17/24 15: Urine Glucose (UA) Negative (Normal) 09/17/24 15: Urine Ketones Trace (Negative) 09/17/24 15: Urine Blood 2+ (Negative) A 09/17/24 15: Urine Nitrate Negative (Negative) 09/17/24 15: Urine Bilirubin Negative (Negative) 09/17/24 15: Urine Urobilinogen 1.0 mg/dL (Negative) 09/17/24 15:29 Ur Leukocyte Esterase Trace (Negative) A 09/17/24 15:29 Urine RBC 21-50 /hpf (0-2) H 09/17/24 15:29 Urine WBC 0-5 /hpf (0-5) 09/17/24 15:29 Ur Squamous Epith Cells 0-5 /hpf (0-5) 09/17/24 15:29 Amorphous Sediment Not Reportable 09/17/24 15:29 Urine Bacteria 1+ /hpf (NONE) H 09/17/24 15:29 Hyaline Casts 7.85 /lpf 09/17/24 15:29 Urine Mucus Trace /hpf 09/17/24 15:29 Urine Sperm 1+ /hpf 09/17/24 15:29 All radiology interpretation(s) finalized by discharge EKG Data EKG 1: I personally reviewed and interpreted this EKG as follows: EKG interpretation date: 09/17/24 EKG interpretation time: 14:42 Interpretation: nsr hr [address] elevation qrs 83 qtc 420 Discharge Plan Discharge Patient Disposition: Home Clinical Impression: Abdominal pain, Anxiety Condition: Stable Prescriptions: No Action clonidine HCl 0.1 mg tablet 0.1 mg PO TID methadone 10 mg tablet 10 mg PO Q6H gabapentin 300 mg capsule 600 mg PO TID PRN (Reason: chronic pain) 30 Days Qty: 180 5RF baclofen 10 mg tablet 10 mg PO TID Qty: 90 5RF mirtazapine 15 mg tablet 15 mg PO .q hs Qty: 30 5RF methylphenidate HCl 20 mg tablet 20 mg PO BID 30 Days Qty: 60 0RF promethazine 25 mg tablet 25 mg PO Q4H PRN (Reason: nausea and vomiting) Qty: 20 0RF Discharge Orders: Discharge ED (Routine); Ordered 09/17/24 Ordered By: Demian Mckeon Referrals: Chuy Galindo MD [Primary Care Provider] - 4-7 days Discharge Diet: Advance as tolerated Discharge Activity: Resume usual activity Patient Instructions: Abdominal Pain (ED) Coding Level of Care Code ED Medicaid Collection Specialist for William Chadwick
--- NOTE | 2024-09-17 14:51 | CTR_ITS ---
PROCEDURE INFORMATION: Exam: CT Abdomen And Pelvis Without Contrast Exam date and time: 09/17/2024 3:38 PM Age: 49 years old Clinical indication: Abdominal pain; Generalized; Additional info: Abd pain TECHNIQUE: Imaging protocol: Computed tomography of the abdomen and pelvis without contrast. Radiation optimization: All CT scans at this facility use at least one of these dose optimization techniques: automated exposure control; mA and/or kV adjustment per patient size (includes targeted exams where dose is matched to clinical indication); or iterative reconstruction. COMPARISON: CT abdomen pelvis w con* [id number] 09/13/2020 5:48 PM RADIATION DOSE METRICS: Total DLP (mGy-cm): 454.43 FINDINGS: Lungs: Visualized lung bases are clear. Liver: Normal appearance of the liver. Gallbladder and biliary ducts: Normal appearance of the gallbladder. No radiopaque cholelithiasis. Pancreas: Normal appearance of the pancreas. No ductal dilation. Spleen: Normal appearance of the spleen. Adrenal glands: Normal appearance of both adrenal glands. Kidneys and ureters: Normal appearance of both kidneys. No evidence of nephrolithiasis or hydronephrosis. No renal mass or cyst is seen. Normal appearance of both ureters without hydroureter or ureteral stone. Stomach and bowel: Normal appearance of the stomach. Normal appearance of the small bowel without luminal dilation suggested. Mild proximal colonic stool burden. Appendix: The appendix is identified and normal in appearance. No evidence of appendicitis. Intraperitoneal space: Unremarkable. No free air. No significant fluid collection. Vasculature: Pelvic calcifications, likely representing incidental phleboliths. Trace atherosclerosis in the abdominal aorta. Lymph nodes: Small scattered retroperitoneal lymph nodes which are nonspecific. Urinary bladder: The bladder is mostly decompressed and not well evaluated. Reproductive: Unremarkable appearance of the prostate. Bones/joints: Remote prior fracture of the L2 vertebral body status post spinal fixation posteriorly spanning from T11 through L4 with laminectomy at L2. There is sclerosis within the L2 through L4 vertebral bodies. There is lucency along the course of the inter pedicular screws at L4 without prior comparison to evaluate for chronicity. Hardware appears intact. No acute fracture or aggressive osseous lesion. Soft tissues: The visualized superficial soft tissues have a normal appearance. CT/CT kidney stone [id number] IMPRESSION: 1. No definite acute intra-abdominal or pelvic pathology on this noncontrast exam. 2. Remote lumbar spinal trauma status post fixation. Age indeterminate periprosthetic lucency noted along the course of the interpedicular screws at L4. No acute osseous injury. 3. Small scattered retroperitoneal lymph nodes likely related to prior surgical change although nonspecific.
[2024-09-17] MEDS: LORazepam 2 mg/mL INJ 1 mL IVP (15:14)
[2024-09-17 15:18] LABS: Basophils % 0.3 %; Eosinophils # 0.1 10^3/uL (0.0-0.8); Eosinophils % 1.1 %; Hematocrit 32.7 % (37-53); Lymphocytes # 0.8 10^3/uL (0.8-4.8); Lymphocytes % 8.2 %; Mean Corpuscular HGB Conc 29.1 g/dL (30-55); Mean Corpuscular Hemoglobin 21.7 pg (27-33); Mean Corpuscular Volume 74.8 fl (82-101); Mean Platelet Volume 9.4 fL (7.4-10.4); Monocytes # 0.3 10^3/uL (0.2-0.9); Monocytes % 3.6 %; Neutrophils # 8.07 10^3/uL (1.8-7.7); Neutrophils % 86.5 %; Nucleated Red Blood Cells % 0 %; Platelet Count 386 10^3/cmm (157-399); Red Blood Count 4.37 10^6/uL (3.85-5.65); White Blood Count 9.34 10^3/uL (3.29-11.43)
[2024-09-17 15:36] LABS: Alanine Aminotransferase 8 U/L (0-41); Albumin Level 3.6 g/dL (3.5-5.2); Alkaline Phosphatase 103 U/L (40-130); Anion Gap 16.7 (5-19); Aspartate Amino Transferase 14 U/L (0-40); Blood Urea Nitrogen 11 mg/dL (6-20); Calcium 8.8 mg/dL (8.5-10.5); Carbon Dioxide 24 mmol/L (22-29); Chloride 99 mmol/L (98-107); Creatinine Clr Calc Pharmacy 106.8494; Globulin 4.9 g/dL (1.3-4.6); Glomerular Filtration Rate 89.3 mL/min (90-130); Glucose 117 mg/dL (65-115); Lipase 11 U/L (13-60); Osmolality Calculated 282 mOsm/kg (285-295); Potassium 3.7 mmol/L (3.5-5.1); Sodium 136 mmol/L (136-145); Total Bilirubin 0.3 mg/dL (0.15-1.2); Total Protein 8.5 g/dL (6.6-8.7)
[2024-09-17 15:41] LABS: Bilirubin Urine Negative (Negative); Blood Urine 2+ (Negative); Glucose Urine UA Negative (Normal); Ketones Urine Trace (Negative); Leukocyte Esterase Urine Trace (Negative); Nitrate Urine Negative (Negative); Protein Urine 1+ (Negative); Specific Gravity, Urine 1.019 (1.005-1.030); Urine Appearance Clear (CLEAR); Urine Color Yellow (Yellow); pH Urine 5.5 (5-7)
[2024-09-17 15:46] LABS: Add Urine Microscopic? YES; Hyaline Casts Urine 7.85 /lpf; RBC Urine 21-50 /hpf (0-2); Squamous Epithelial Cell Urine 0-5 /hpf (0-5); WBC Urine 0-5 /hpf (0-5)
[2024-09-17 15:56] LABS: UA Slide Review UA Slide Review Perf
[2024-09-17 15:57] LABS: Add Urine Culture? Yes; Bacteria Urine 1+ /hpf; Mucus Urine TRACE /hpf; Sperm Urine 1+ /hpf
--- NOTE | 2024-09-17 16:22 | ECG_ITS ---
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
--- NOTE | 2024-09-17 18:10 | PC.NURSE ---
iv in r upper arm d/c, intact, dressed with coban and 2x2.
[2024-09-17 18:12] VITALS: BP 133/79; PULSE 54; O2SAT 95
== END 2024-09-17 18:13 | disposition home or self-care (01) ==
PROVIDERS: Emergency Provider Emergency Medicine; PCP Family Medicine Adult Medicine
DX: R10.30 Lower abdominal pain, unspecified (principal); F41.9 Anxiety disorder, unspecified; Z87.891 Personal history of nicotine dependence
CPT/HCPCS: 74176; 80053; 81001; 83690; 85025; 87086; 93005; 96374; 99285; J2060

== ENCOUNTER 2024-09-27 | Emergency (ER) | payer MEDICAID, SELFPAY ==
[2024-09-27] VITALS (12 sets, daily range): BP systolic 94–144; BP diastolic 67–105; PULSE 48–88; RESP 12–24; O2SAT 92–99; BMI 33.2
--- NOTE | 2024-09-27 00:09 | XRR_ITS ---
PROCEDURE INFORMATION: Exam: XR Abdomen Exam date and time: 09/27/2024 12:21 AM Age: 49 years old Clinical indication: Abdominal pain; Generalized; Prior surgery; Surgery date: 6+ months; Surgery type: Back SX in nov 2023; Additional info: Abd pain TECHNIQUE: Imaging protocol: Radiologic exam of the abdomen. Views: Frontal supine view of the abdomen. 1 View. COMPARISON: CT kidney stone [id number] 09/17/2024 3:38 PM FINDINGS: Gastrointestinal tract: Gaseous dilation of the transverse colon measuring up to 7.5 cm. No findings suggesting mechanical obstruction. Bones/joints: Unremarkable. Other findings: Postoperative changes of T11-L4 posterior fusion. XR/XR abdomen 1V* [id number] IMPRESSION: Nonspecific gaseous dilation of the transverse colon. No findings suggesting mechanical obstruction.
--- NOTE | 2024-09-27 00:13 | ED_ITS ---
HPI - Anxiety General: Chief Complaint: Anxiety Stated Complaint: Anxiety Time Seen by Provider: 09/27/24 00:03 History of Present Illness: 49-year-old man with a history of fentan yl abuse now on methadone maintenance therapy who presents the emergency room by ambulance with anxiety. He says he has been having panic attacks lately and is having 1 now. He says he has been having some rectal pain at times and has not followed with his primary about this. No focal abdominal pain. He says he got anxious and vomited. He did take some Zofran. Related Data Home Medications Medication Instructions Recorded Confirmed clonidine HCl 0.1 mg tablet 0.1 mg PO TID 02/16/23 08/16/24 methadone 10 mg tablet 10 mg PO Q6H 12/29/23 08/16/24 Previous Rx's Medication Instructions Recorded baclofen 10 mg tablet 10 mg PO TID Chronic pain s/p back 04/12/24 surgery #90 tabs gabapentin 300 mg capsule 600 mg (2 x 300 mg) PO TID PRN 04/12/24 chronic pain 30 days #180 caps mirtazapine 15 mg tablet 15 mg PO .q hs #30 tabs 04/28/24 promethazine 25 mg tablet 25 mg PO Q4H PRN nausea and 07/30/24 vomiting #20 tabs methylphenidate HCl 20 mg tablet 20 mg PO BID add 30 days #60 tabs 09/07/24 hydrocortisone 1 %-pramoxine 1 % 1 applic OR BID PRN hemorrhoids 09/27/24 rectal foam (Proctofoam HC) #10 grams Allergies Allergy/AdvReac Type Severity Reaction Status Date / Time levetiracetam [From Keppra] Allergy ADR-Vomitin Verified 09/27/24 00:12 g trazodone Allergy ADR-Nightma Verified 09/27/24 00:12 re haloperidol [From Haldol] AdvReac Severe ADR-Anxiety Verified 09/27/24 00:12 Iodinated Contrast Media AdvReac Mild ADR-Itching Verified 09/27/24 00:12 contrast Allergy hives Uncoded 09/27/24 00:12 Review of Systems Narrative: Constitutional symptoms: Negative except as documented in HPI. Skin symptoms: Negative except as documented in HPI. Eye symptoms: Negative except as documented in HPI. ENMT symptoms: Negative except as documented in HPI. Respiratory symptoms: Negative except as documented in HPI. Cardiovascular symptoms: Negative except as documented in HPI. Gastrointestinal symptoms: Negative except as documented in HPI. Genitourinary symptoms: Negative except as documented in HPI. Musculoskeletal symptoms: Negative except as documented in HPI. Neurologic symptoms: Negative except as documented in HPI. Psychiatric symptoms: Negative except as documented in HPI. Endocrine symptoms: Negative except as documented in HPI. PFSH ED PFSH: Medical History Cauda equina compression Lumbar vertebral collapse ADD (attention deficit disorder) History of drainage of abscess multiple Trauma in childhood Social anxiety disorder Femoral acetabular impingement Bleeding per rectum History of substance abuse Narcotic abuse Surgical History History of liver biopsy 2013 History of colonoscopy 2009 History of facial surgery 2014 Social History Smoking and tobacco/nicotine status: never used tobacco/nicotine Quit status (tobacco/nicotine): has tried quititng Number of times tried to quit tobacco: 2 Second hand smoke exposure: Yes Alcohol intake: current Substance/Drug Use: current Substance/Drug use frequency: daily Other substance/drug use details: Fentanyl Current gender identity: Male Physical Exam Narrative: EXAM NARRATIVE: General: Alert, no acute distress. Skin: Warm, dry. Head: Normocephalic, atraumatic. Neck: Supple, trachea midline. Eye: Extraocular movements are intact. Ears, nose, mouth and throat: mucosa moist. Cardiovascular: Regular, Normal peripheral perfusion. Respiratory: Lungs are clear to auscultation, respirations are non-labored, breath sounds are equal, Symmetrical chest wall expansion. Gastrointestinal: Soft, Nontender, Non distended Musculoskeletal: Normal ROM, no deformity. Neurological: Alert and oriented, No focal neurological deficit observed. Psychiatric: Cooperative, patient does appear quite anxious. He is rambling about different things. Hard to keep focused Course Vital Signs: Vital signs: Vital Signs Pulse Rate 60 09/27/24 01:40 Respiratory Rate 14 09/27/24 01:40 Blood Pressure 108/74 09/27/24 01:40 Pulse Oximetry 92 09/27/24 01:40 Oxygen Delivery Me thod Room Air 09/27/24 00:02 MDM - Anxiety Medical Decision Making Abdomen x-ray: Nonspecific bowel gas pattern. No evidence of free air or obs truction. This was reviewed and interpreted by myself the emergency room physician. Assessment and plan: Anxiety ?Ativan in the emergency room. Provided with information on psychiatric help in the area. - Discharged home - Discussed plan with patient. Answered any questions. - Evaluation and treatment of this problem were appropriate in the emergency setting. Lab Data Radiology Impressions Abdomen X-Ray 09/27/24 00:09 IMPRESSION: Nonspecific gaseous dilation of the transverse colon. No findings suggesting mechanical obstruction. All radiology interpretation(s) finalized by discharge Discharge Plan Discharge Patient Disposition: Home Clinical Impression: Acute anxiety Condition: Stable Prescriptions: New Proctofoam HC 1-1 % foam 1 applic OR BID PRN (Reason: hemorrhoids) Qty: 10 0RF No Action clonidine HCl 0.1 mg tablet 0.1 mg PO TID methadone 10 mg tablet 10 mg PO Q6H gabapentin 300 mg capsule 600 mg PO TID PRN (Reason: chronic pain) 30 Days Qty: 180 5RF baclofen 10 mg tablet 10 mg PO TID Qty: 90 5RF mirtazapine 15 mg tablet 15 mg PO .q hs Qty: 30 5RF methylphenidate HCl 20 mg tablet 20 mg PO BID 30 Days Qty: 60 0RF promethazine 25 mg tablet 25 mg PO Q4H PRN (Reason: nausea and vomiting) Qty: 20 0RF Discharge Orders: Discharge ED (Routine); Ordered 09/27/24 Ordered By: Soco Alanis Referrals: Chuy Galindo MD [Primary Care Provider] - 4-7 days (Please call for a follow-up with your primary care provider soon as possible.) Discharge Diet: Usual diet Discharge Activity: Increase activity as tolerated Patient Instructions: Opioid Safety, Pain Management Activity Restrictions/Additional Instructions: Please follow-up with the [facility] behavioral health crisis center tomorrow or the next day. Phone number is [phone]. There is a 24-hour crisis hotline with the number of [phone]. Hours of operation are 8 AM to 6 PM. Thank you for choosing [facility] for your healthcare needs today. Please realize this is an emergency room and that we are providing you with a medical screening exam and this may not be complete and all inclusive of all the testing and or work up that you may need to determine your ailment or severity of your illness. You have been screened and evaluated and felt safe for discharge. Health conditions do change or evolve sometimes and as such it is important that you follow up with your Primary Doctor to be re checked, 3-5 days is a general good time frame for follow up. You are always welcome to return to the ED for re assessment if your symptoms are worsening or you have new concerns Coding Level of Care Code ED Bleaching Supervisor for William Chadwick
--- NOTE | 2024-09-27 00:15 | PC.NURSE ---
Pt request no IV at this time. Requests meds be given IM. MD notified. MD gave verbal order to change dose from 1mg IVP to 2mg IM. The initial 2mg ativan vial was used to administer the total dose of 2 mg and the 1mg ivp order was discontinued with verbal orders.
[2024-09-27] MEDS: LORazepam 2 mg/mL INJ 1 mL IM (00:24)
--- NOTE | 2024-09-27 02:07 | PC.NURSE ---
Pt resting quietly. Reports feeling better/
== END 2024-09-27 06:13 | disposition home or self-care (01) ==
PROVIDERS: Emergency Provider Emergency Medicine; PCP Family Medicine Adult Medicine
DX: F41.8 Other specified anxiety disorders (principal); Z72.0 Tobacco use; F19.11 Other psychoactive substance abuse, in remission
CPT/HCPCS: 74018; 96372; 96374; 99284; J2060

== ENCOUNTER 2024-10-01 03:00 | Emergency (ER) | payer MEDICAID, SELFPAY ==
[2024-10-01 03:01] VITALS: BP 144/87; PULSE 87; RESP 22; TEMP 37.1; O2SAT 97; BMI 24.4
[2024-10-01 03:08] VITALS: BP 135/96; PULSE 73; O2SAT 92
--- NOTE | 2024-10-01 03:54 | ED_ITS ---
HPI - Anxiety General: Chief Complaint: Anxiety Stated Complaint: ANXIETY Time Seen by Provider: 10/01/24 03:44 History of Present Illness: 49 year old male with a history of anxie ty disorder. He states he has hydroxyzine at home, but it doesn't really help, and keeps him awake so he stopped taking it. He presents with uncontrolled anxiety symptoms, which he relates to a recent back surgery causing chronic pain. He says sometimes he just can't get his symptoms under control at home. He doesn't like taking anxiety medicine unless given to him by our doctor because he has a history of substance abuse. Related Data Home Medications Medication Instructions Recorded Confirmed clonidine HCl 0.1 mg tablet 0.1 mg PO TID 02/16/23 08/16/24 methadone 10 mg tablet 10 mg PO Q6H 12/29/23 08/16/24 Previous Rx's Medication Instructions Recorded baclofen 10 mg tablet 10 mg PO TID Chronic pain s/p back 04/12/24 surgery #90 tabs gabapentin 300 mg capsule 600 mg (2 x 300 mg) PO TID PRN 04/12/24 chronic pain 30 days #180 caps mirtazapine 15 mg tablet 15 mg PO .q hs #30 tabs 04/28/24 promethazine 25 mg tablet 25 mg PO Q4H PRN nausea and 07/30/24 vomiting #20 tabs methylphenidate HCl 20 mg tablet 20 mg PO BID add 30 days #60 tabs 09/07/24 hydrocortisone 1 %-pramoxine 1 % 1 applic [place] BID PRN hemorrhoids 09/27/24 rectal foam (Proctofoam HC) #10 grams Allergies Allergy/AdvReac Type Severity Reaction Status Date / Time levetiracetam [From Keppra] Allergy ADR-Vomitin Verified 09/27/24 00:12 g trazodone Allergy ADR-Nightma Verified 09/27/24 00:12 re haloperidol [From Haldol] AdvReac Severe ADR-Anxiety Verified 09/27/24 00:12 Iodinated Contrast Media AdvReac Mild ADR-Itching Verified 09/27/24 00:12 contrast Allergy hives Uncoded 09/27/24 00:12 [facility] ED PFSH: Medical History Cauda equina compression Lumbar vertebral collapse ADD (attention deficit disorder) History of drainage of abscess multiple Trauma in childhood Social anxiety disorder Femoral acetabular impingement Bleeding per rectum History of substance abuse Narcotic abuse Surgical History History of liver biopsy 2013 History of colonoscopy 2009 History of facial surgery 2013 Social History Smoking and tobacco/nicotine status: never used tobacco/nicotine Quit status (tobacco/nicotine): has tried quititng Number of times tried to quit tobacco: 2 Second hand smoke exposure: Yes Alcohol intake: current Substance/Drug Use: current Substance/Drug use frequency: daily Other substance/drug use details: Fentanyl Current gender identity: Male Physical Exam Const: GENERAL APPEARANCE: cooperative, anxious and disheveled; not ill appearing and not frail appearing HENMT: COMMON NORMALS: normocephalic, atraumatic and Normal external nose present HEAD & SCALP: normocephalic and atraumatic FACE & SINUS: normal facial exam and face symmetric NOSE: Normal external nose present Eye: COMMON NORMALS: Equal, round and reactive pupils present and EOMs intact bilaterally PUPIL: Yes Equal, round and reactive pupils present Neck/C-Spine: GENERAL: Yes trachea midline Chest: CHEST: Yes Symmetrical chest wall rise Resp: COMMON NORMALS: normal respiratory effort, No retractions, No use of accessory muscles and clear to auscultation bilaterally AUSCULTATION: clear to auscultation bilaterally Cardio: COMMON NORMALS: regular rate and regular rhythm RATE: regular rate RHYTHM: regular rhythm GI: COMMON NORMALS: Normal to inspection, nondistended, normoactive bowel sounds present Extremity: COMMON NORMALS: no pedal edema Neuro: VERO COMA SCALE: document GCS findings Savage coma scale eye opening: Spontaneous Savage coma scale verbal response: Orientated Savage coma scale motor response: Obey commands Vero coma scale total score: 15 SENSORY EXAM: Yes extremities (intact) Psych: COMMON NORMALS: speech normal SPEECH: Yes normal speech Skin: COMMON NORMALS: no rashes or lesions noted GENERAL SKIN EXAM: no rashes or lesions noted Course Vital Signs: Vital signs: Vital Signs Temperature 98.8 F 10/01/24 03:01 Pulse Rate 55 L 10/01/24 05:41 Respiratory Rate 22 H 10/01/24 03:01 Blood Pressure 115/78 10/01/24 05:41 Pulse Oximetry 100 10/01/24 05:41 MDM - Anxiety Medical Decision Making Improved after IM ativan. He refused Zydis. Medically he is stable. He does not require further workup. He will be discharged. No radiology studies performed this visit Discharge Plan Discharge Patient Disposition: Home Clinical Impression: Acute anxiety Condition: Stable Prescriptions: No Action clonidine HCl 0.1 mg tablet 0.1 mg PO TID methadone 10 mg tablet 10 mg PO Q6H gabapentin 300 mg capsule 600 mg PO TID PRN (Reason: chronic pain) 30 Days Qty: 180 5RF baclofen 10 mg tablet 10 mg PO TID Qty: 90 5RF mirtazapine 15 mg tablet 15 mg PO .q hs Qty: 30 5RF methylphenidate HCl 20 mg tablet 20 mg PO BID 30 Days Qty: 60 0RF promethazine 25 mg tablet 25 mg PO Q4H PRN (Reason: nausea and vomiting) Qty: 20 0RF Proctofoam HC 1-1 % foam 1 applic [place] BID PRN (Reason: hemorrhoids) Qty: 10 0RF Discharge Orders: Discharge ED (Routine); Ordered 10/01/24 Ordered By: Gregory Palacio Referrals: Chuy Galinod MD [Primary Care Provider] - 1-3 days Patient Instructions: Anxiety (ED), Opioid Safety, Pain Management Coding Level of Care Code ED Auto Body Shop Manager for William Chadwick
[2024-10-01 04:08] VITALS: BP 130/90; PULSE 64; O2SAT 97
[2024-10-01] MEDS: LORazepam 2 mg/mL INJ 1 mL IM (04:13)
[2024-10-01 05:41] VITALS: BP 115/78; PULSE 55; O2SAT 100
== END 2024-10-01 05:20 | disposition home or self-care (01) ==
PROVIDERS: Emergency Provider Emergency Medicine; PCP Family Medicine Adult Medicine
DX: F41.8 Other specified anxiety disorders (principal); Z72.0 Tobacco use
CPT/HCPCS: 96372; 99284; J2060

== ENCOUNTER 2024-10-03 22:37 | Emergency (ER) | payer MEDICAID, SELFPAY ==
[2024-10-03 22:39] VITALS: BP 113/73; PULSE 76; RESP 18; TEMP 36.9; O2SAT 91; BMI 22.3
[2024-10-03 22:42] VITALS: BP 113/73; PULSE 78; O2SAT 92
--- NOTE | 2024-10-03 22:44 | ECG_ITS ---
[facility]: 2024-[facility]03 Pat Name: Joby Jean Department: Room: Gender: Male Belling Machine Operator: : 1975 Requested By: Sergio Wagner Order Number: [id number] Rachid MD: Marleen Paez M.D. Measurements Intervals [place] Rate: 80 P: 52 LA: 148 QRS: 10 QRSD: 82 T: 56 QT: 308 QTc: 355 Interpretive Statements SINUS RHYTHM NONSPECIFIC T-WAVE ABNORMALITY Compared to ECG 09/17/2024 14:42:11 T-wave abnormality now present Heavy baseline artifacts Electronically Signed On 10-06-2024 21:33:25 BUILDING CARPENTER by Marleen Paez M.D. [id number]
--- NOTE | 2024-10-03 22:46 | ED_ITS ---
HPI - Chest Pain 2 General: Chief Complaint: Chest Pain Stated Complaint: CHEST PAIN Time Seen by Provider: 10/03/24 22:38 History of Present Illness: Patient presents to the ER complaining of having anxiety attack and having chest pain. Patient a lot going on his just recently his disability has been moving he has not got his anxiety under control. Patient was seen last night for the exact same thing worked up and discharged home. Related Data Home Medications Medication Instructions Recorded Confirmed clonidine HCl 0.1 mg tablet 0.1 mg PO TID 02/16/23 08/16/24 methadone 10 mg tablet 10 mg PO Q6H 12/29/23 08/16/24 Previous Rx's Medication Instructions Recorded baclofen 10 mg tablet 10 mg PO TID Chronic pain s/p back 04/12/24 surgery #90 tabs gabapentin 300 mg capsule 600 mg (2 x 300 mg) PO TID PRN 04/12/24 chronic pain 30 days #180 caps mirtazapine 15 mg tablet 15 mg PO .q hs #30 tabs 04/28/24 promethazine 25 mg tablet 25 mg PO Q4H PRN nausea and 07/30/24 vomiting #20 tabs methylphenidate HCl 20 mg tablet 20 mg PO BID add 30 days #60 tabs 09/07/24 hydrocortisone 1 %-pramoxine 1 % 1 applic [place] BID PRN hemorrhoids 09/27/24 rectal foam (Proctofoam HC) #10 grams Allergies Allergy/AdvReac Type Severity Reaction Status Date / Time levetiracetam [From Keppra] Allergy ADR-Vomitin Verified 10/03/24 22:42 g trazodone Allergy ADR-Nightma Verified 10/03/24 22:42 re haloperidol [From Haldol] AdvReac Severe ADR-Anxiety Verified 10/03/24 22:42 Iodinated Contrast Media AdvReac Mild ADR-Itching Verified 10/03/24 22:42 contrast Allergy hives Uncoded 10/03/24 22:42 Review of Systems 2 General: Reports: 10 or more systems reviewed and unremarkable except in HPI and below PFSH ED 2 PFSH: Medical History Cauda equina compression Lumbar vertebral collapse ADD (attention deficit disorder) History of drainage of abscess multiple Trauma in childhood Social anxiety disorder Femoral acetabular impingement Bleeding per rectum History of substance abuse Narcotic abuse Surgical History History of liver biopsy 2012 History of colonoscopy 2009 History of facial surgery 2013 Social History Smoking and tobacco/nicotine status: never used tobacco/nicotine Quit status (tobacco/nicotine): has tried quititng Number of times tried to quit tobacco: 2 Second hand smoke exposure: Yes Alcohol intake: current Substance/Drug Use: current Substance/Drug use frequency: daily Other substance/drug use details: Fentanyl Current gender identity: Male Physical Exam 2 Const: COMMON NORMALS: no acute distress, average body habitus, patient oriented x3, no limitations, healthy appearing, alert and well nourished HENMT: COMMON NORMALS: normocephalic, atraumatic, hearing grossly normal bilaterally, external ears normal, Normal external nose present and moist oral mucous membranes HEAD & SCALP: normocephalic and atraumatic NOSE: Normal external nose present EXTERNAL EAR: Yes external ears normal Neck/C-Spine: COMMON NORMALS: no JVD Chest: COMMONS NORMALS: normal inspection of the chest and normal palpation of entire chest wall Resp: COMMON NORMALS: normal respiratory effort, No retractions, No use of accessory muscles and clear to auscultation bilaterally AUSCULTATION: clear to auscultation bilaterally Cardio: COMMON NORMALS: no JVD, regular rate, regular rhythm, S1 normal heart sound present, S2 normal heart sound present, No gallops present (Cardio), No clicks present (Cardio), No murmurs present (Cardio) and No rub (Cardio) R ATE: regular rate RHYTHM: regular rhythm HEART SOUNDS: S1 normal heart sound present and S2 normal heart sound present GI: COMMON NORMALS: Normal to inspection, nondistended, normoactive bowel sounds present, Soft to palpation, non-tender, No hepatosplenomegaly present and no masses PALPATION: Yes Soft to palpation and Yes No hepatosplenomegaly present Neuro: COMMON NORMALS: patient oriented x3 SENSORIUM/ORIENTATION: Yes alert Course 2 Vital Signs: Vital signs: Vital Signs Temperature 98.5 F 10/03/24 22:39 Pulse Rate 50 L 10/04/24 01:00 Respiratory Rate 18 10/03/24 22:39 Blood Pressure 94/66 10/04/24 01:00 Pulse Oximetry 92 10/04/24 01:00 Oxygen Delivery Me thod Room Air 10/03/24 22:42 MDM - Chest Pain Medical Decision Making Note lab work and imaging reviewed from yesterday's ER visit. Patient was offered buspirone to calm his anxiety here in ER and he declined it and wanted Ativan by name. Patient was worked up in standard chest pain fashion with serial EKGs serial enzymes chest x-ray, all of which were benign, patient self this to and his anxiety was under control. Patient will be discharged home Medical Records I reviewed the patient's medical records. Lab Data I reviewed the patient's lab results. 10/03/24 22:59 10/03/24 22:59 Laboratory Results WBC 7.15 10^3/uL (3.29-11.43) 10/03/24 22:59 RBC 4.56 10^6/uL (3.85-5.65) 10/03/24 22:59 Hgb 9.80 g/dL (11.27-16.99) L 10/03/24 22:59 Hct 33.2 % (37-53) L 10/03/24 22:59 MCV 72.8 fl (82-101) L 10/03/24 22:59 MCH 21.5 pg (27-33) L 10/03/24 22:59 MCHC 29.5 g/dL (30-55) L 10/03/24 22:59 RDW 16.3 % (12.1-15.1) H 10/03/24 22:59 Plt Count 350 10^3/cmm (157-399) 10/03/24 22:59 MPV 8.6 fL (7.4-10.4) 10/03/24 22:59 Neut % (Auto) 72.8 % 10/03/24 22:59 Lymph % (Auto) 16.4 % 10/03/24 22:59 Eddy % (Auto) 6.2 % 10/03/24 22:59 Eos % (Auto) 3.9 % 10/03/24 22:59 Baso % (Auto) 0.6 % 10/03/24 22:59 Neut # (Auto) 5.21 10^3/uL (1.8-7.7) 10/03/24 22:59 Lymph # (Auto) 1.2 10^3/uL (0.8-4.8) 10/03/24 22:59 Eddy # (Auto) 0.4 10^3/uL (0.2-0.9) 10/03/24 22:59 Eos # (Auto) 0.3 10^3/uL (0.0-0.8) 10/03/24 22:59 Baso # (Auto) 0.0 10^3/uL (0.0-0.1) 10/03/24 22:59 Nucleated RBC % (auto) 0 % 10/03/24 22:59 Nucleated RBCs # 0.0 /100WBC 10/03/24 22:59 Sodium 137 mmol/L (136-145) 10/03/24 22:59 Potassium 3.8 mmol/L (3.5-5.1) 10/03/24 22:59 Chloride 98 mmol/L (98-107) 10/03/24 22:59 Carbon Dioxide 26 mmol/L (22-29) 10/03/24 22:59 Anion Gap 16.8 (5-19) 10/03/24 22:59 BUN 13 mg/dL (6-20) 10/03/24 22:59 Creatinine 1.0 mg/dL (0.7-1.2) 10/03/24 22:59 GFR Calculation 79.1 mL/min (90-130) L 10/03/24 22:59 Glucose 130 mg/dL (65-115) H 10/03/24 22:59 Calculated Osmolality 286 mOsm/kg (285-295) 10/03/24 22:59 Calcium 8.6 mg/dL (8.5-10.5) 10/03/24 22:59 Total Bilirubin 0.2 mg/dL (0.15-1.2) 10/03/24 22:59 AST 16 U/L (0-40) 10/03/24 22:59 ALT 8 U/L (0-41) 10/03/24 22:59 Alkaline Phosphatase 111 U/L (40-130) 10/03/24 22:59 Troponin T Baseline 15 ng/L (0-15) 10/03/24 22:59 Troponin T 120 Minute 14.67 ng/L (0-15) 10/04/24 00:44 Delta Troponin T -0.33 ABS# (0-10) L 10/04/24 00:44 Total Protein 8.0 g/dL (6.6-8.7) 10/03/24 22:59 Albumin 3.7 g/dL (3.5-5.2) 10/03/24 22:59 Globulin 4.3 g/dL (1.3-4.6) 10/03/24 22:59 No radiology studies performed this visit Discharge Plan Discharge Patient Disposition: Home Clinical Impression: Acute anxiety Chest pain Qualifiers: Chest pain type: unspecified Qualified Code(s): R07.9 - Chest pain, unspecified Condition: Stable Prescriptions: No Action clonidine HCl 0.1 mg tablet 0.1 mg PO TID methadone 10 mg tablet 10 mg PO Q6H gabapentin 300 mg capsule 600 mg PO TID PRN (Reason: chronic pain) 30 Days Qty: 180 5RF baclofen 10 mg tablet 10 mg PO TID Qty: 90 5RF mirtazapine 15 mg tablet 15 mg PO .q hs Qty: 30 5RF methylphenidate HCl 20 mg tablet 20 mg PO BID 30 Days Qty: 60 0RF promethazine 25 mg tablet 25 mg PO Q4H PRN (Reason: nausea and vomiting) Qty: 20 0RF Proctofoam HC 1-1 % foam 1 applic [place] BID PRN (Reason: hemorrhoids) Qty: 10 0RF Discharge Orders: Discharge ED (Routine); Ordered 10/04/24 Ordered By: Sergio Wagner Referrals: Chuy Galindo MD [Primary Care Provider] - 1 week Patient Instructions: Chest Pain (ED), Anxiety (ED) Activity Restrictions/Additional Instructions: Evaluation in the ER that included lab work, EKGs, chest x-ray all were benign. There is no acute signs of cardiac causes for your chest pain or anxiety. It is felt just to be anxiety. Please follow-up with your family practice physician for further evaluation and treatment. Coding Level of Care Code ED Fingernail Sculpturer for William Chadwick
[2024-10-03 23:10] LABS: Basophils % 0.6 %; Eosinophils # 0.3 10^3/uL (0.0-0.8); Eosinophils % 3.9 %; Hematocrit 33.2 % (37-53); Lymphocytes # 1.2 10^3/uL (0.8-4.8); Lymphocytes % 16.4 %; Mean Corpuscular HGB Conc 29.5 g/dL (30-55); Mean Corpuscular Hemoglobin 21.5 pg (27-33); Mean Corpuscular Volume 72.8 fl (82-101); Mean Platelet Volume 8.6 fL (7.4-10.4); Monocytes # 0.4 10^3/uL (0.2-0.9); Monocytes % 6.2 %; Neutrophils # 5.21 10^3/uL (1.8-7.7); Neutrophils % 72.8 %; Nucleated Red Blood Cells % 0 %; Platelet Count 350 10^3/cmm (157-399); Red Blood Count 4.56 10^6/uL (3.85-5.65); Red Cell Distribution Width 16.3 % (12.1-15.1); White Blood Count 7.15 10^3/uL (3.29-11.43)
[2024-10-03 23:12] VITALS: BP 117/79; PULSE 64; O2SAT 94
[2024-10-03 23:15] VITALS: BP 114/74; PULSE 63; O2SAT 91
[2024-10-03 23:23] LABS: Troponin(5th) Baseline 15 ng/L (0-15)
[2024-10-03 23:26] LABS: Alanine Aminotransferase 8 U/L (0-41); Albumin Level 3.7 g/dL (3.5-5.2); Alkaline Phosphatase 111 U/L (40-130); Anion Gap 16.8 (5-19); Aspartate Amino Transferase 16 U/L (0-40); Blood Urea Nitrogen 13 mg/dL (6-20); Calcium 8.6 mg/dL (8.5-10.5); Carbon Dioxide 26 mmol/L (22-29); Chloride 98 mmol/L (98-107); Creatinine Clr Calc Pharmacy 92.7625; Globulin 4.3 g/dL (1.3-4.6); Glomerular Filtration Rate 79.1 mL/min (90-130); Glucose 130 mg/dL (65-115); Osmolality Calculated 286 mOsm/kg (285-295); Potassium 3.8 mmol/L (3.5-5.1); Sodium 137 mmol/L (136-145); Total Bilirubin 0.2 mg/dL (0.15-1.2)
[2024-10-03 23:30] VITALS: BP 103/74; PULSE 58; O2SAT 94
[2024-10-04] VITALS (16 sets, daily range): BP systolic 87–115; BP diastolic 62–79; PULSE 47–82; RESP 10; O2SAT 92–97
--- NOTE | 2024-10-04 00:50 | ECG_ITS ---
[facility]: 2024[facility]10[facility]04 Pat Name: Joby Jean Department: Room: Gender: Male Warp Dresser: : 1975 Requested By: Sergio Wagner Order Number: [id number] Rachid MD: CAT YOUSIF Measurements Intervals [place] Rate: 51 P: 41 WI: 164 QRS: 6 QRSD: 89 T: 12 QT: 483 QTc: 445 Interpretive Statements SINUS BRADYCARDIA Compared to ECG 10/03/2024 22:40:40 Sinus rhythm no longer present T-wave abnormality no longer present Electronically Signed On 10-07-2024 00:40:29 ORNAMENT STAPLER by CAT YOUSIF [id number]
[2024-10-04 01:09] LABS: Troponin 5 2HR 14.67 ng/L (0-15)
[2024-10-04 01:10] LABS: Troponin 5 2HR Delta -0.33 ABS# (0-10)
== END 2024-10-04 05:20 | disposition home or self-care (01) ==
PROVIDERS: Emergency Provider Emergency Medicine; PCP Family Medicine Adult Medicine
DX: F41.9 Anxiety disorder, unspecified (principal); R07.9 Chest pain, unspecified
CPT/HCPCS: 36415; 80053; 84484; 85025; 93005; 99284

== ENCOUNTER → 2024-10-04 14:44 | Outpatient (BNVA) | payer MEDICAID, SELFPAY | PROVIDERS: PCP Family Medicine Adult Medicine; Visit Provider Orthopaedic Surgery | DX: Z98.1 Arthrodesis status (principal) | CPT/HCPCS: 72100 ==

== ENCOUNTER 2024-10-04 15:36 | Emergency (ER) | payer MEDICAID, SELFPAY ==
--- NOTE | 2024-10-04 15:44 | XRR_ITS ---
PROCEDURE INFORMATION: Exam: XR Chest Exam date and time: 10/04/2024 3:58 PM Age: 49 years old Clinical indication: Shortness of breath; Additional info: Anxiety TECHNIQUE: Imaging protocol: Radiologic exam of the chest. Views: 1 view. COMPARISON: CR XR chest 1V portable [id number] 10/14/2023 2:14 PM FINDINGS: Lungs: Unremarkable. No consolidation. Pleural spaces: Unremarkable. No pleural effusion. No pneumothorax. Heart/Mediastinum: Unremarkable. No cardiomegaly. Bones/joints: Partially visualized spinal fusion hardware in the lower thoracolumbar spine. No acute findings. XR/XR chest 1V portable [id number] IMPRESSION: No acute findings.
--- NOTE | 2024-10-04 15:45 | ED_ITS ---
HPI - Anxiety General: Chief Complaint: Anxiety Stated Complaint: Rapid Resp. Panic Attack Time Seen by Provider: 10/04/24 15:41 Source: patient Mode of arrival: ambulatory Limitations: no limitations History of Present Illness: 49-year-old male who is at a point with his spine surgeon he states he has a history of severe anxiety and panic attack states that the appointment made him extremely anxious and had a panic attack. Rapid response was called and brought him here patient is extremely anxious he states this feels like his previous panic attacks he is hyper ventilating. Denies SI or HI Associated symptoms: Deny chest pain, chills, fever(s), headache(s), nausea or vomiting Related Data Home Medications Medication Instructions Recorded Confirmed clonidine HCl 0.1 mg tablet 0.1 mg PO TID 02/16/23 10/04/24 methadone 10 mg tablet 10 mg PO Q6H 12/29/23 10/04/24 Previous Rx's Medication Instructions Recorded baclofen 10 mg tablet 10 mg PO TID Chronic pain s/p back 04/12/24 surgery #90 tabs gabapentin 300 mg capsule 600 mg (2 x 300 mg) PO TID PRN 04/12/24 chronic pain 30 days #180 caps mirtazapine 15 mg tablet 15 mg PO .q hs #30 tabs 04/28/24 promethazine 25 mg tablet 25 mg PO Q4H PRN nausea and 07/30/24 vomiting #20 tabs methylphenidate HCl 20 mg tablet 20 mg PO BID add 30 days #60 tabs 09/07/24 hydrocortisone 1 %-pramoxine 1 % 1 applic GA BID PRN hemorrhoids 09/27/24 rectal foam (Proctofoam HC) #10 grams Allergies Allergy/AdvReac Type Severity Reaction Status Date / Time levetiracetam [From Keppra] Allergy ADR-Vomitin Verified 10/04/24 14:57 g trazodone Allergy ADR-Nightma Verified 10/04/24 14:57 re haloperidol [From Haldol] AdvReac Severe ADR-Anxiety Verified 10/04/24 14:57 Iodinated Contrast Media AdvReac Mild ADR-Itching Verified 10/04/24 14:57 contrast Allergy hives Uncoded 10/04/24 14:57 Review of Systems Const: Denies: fever(s), chills, body aches or change in appetite ENMT: Denies: throat pain or dental pain Card: Denies: chest pain Resp: Denies: dyspnea GI: Denies: abdominal pain, nausea, vomiting or diarrhea Musc: Denies: neck pain or back pain Skin/Breast: Denies: rash Neuro: Denies: headache(s) Psych: Reports: anxiety [facility] ED PFSH: Medical History Cauda equina compression Lumbar vertebral collapse ADD (attention deficit disorder) History of drainage of abscess multiple Trauma in childhood Social anxiety disorder Femoral acetabular impingement Bleeding per rectum History of substance abuse Narcotic abuse Surgical History History of liver biopsy 2013 History of colonoscopy 2009 History of facial surgery 2013 Social History Smoking and tobacco/nicotine status: current every day tobacco/nicotine user cigarettes Packs smoked per day: 1 Years cigarettes smoked: 30 Quit status (tobacco/nicotine): has tried quititng Number of times tried to quit tobacco: 2 Second hand smoke exposure: Yes Alcohol intake: current Substance/Drug Use: current Substance/Drug use frequency: daily Other substance/drug use details: Fentanyl Current gender identity: Male Physical Exam Const: COMMON NORMALS: patient oriented x3 GENERAL APPEARANCE: anxious HENMT: COMMON NORMALS: normocephalic and atraumatic HEAD & SCALP: normocephalic and atraumatic Neck/C-Spine: COMMON NORMALS: full ROM and supple Chest: COMMONS NORMALS: normal inspection of the chest Resp: COMMON NORMALS: No retractions, No use of accessory muscles and clear to auscultation bilaterally EFFORT & INSPECTION: Yes tachypneic AUSCULTATION: clear to auscultation bilaterally Cardio: COMMON NORMALS: regular rate, regular rhythm and No murmurs present (Cardio) RATE: regular rate RHYTHM: regular rhythm Extremity: COMMON NORMALS: normal to inspection and full ROM Neuro: COMMON NORMALS: patient oriented x3, moves all extremities and no focal motor deficits Psych: COMMON NORMALS: mental status grossly normal, Normal thought process present and cooperative MOOD & AFFECT: Yes anxious THOUGHT PROCESS: Normal thought process present Skin: COMMON NORMALS: no rashes or lesions noted and no wounds GENERAL SKIN EXAM: no rashes or lesions noted Course Vital Signs: Vital signs: Vital Signs Temperature 98.1 F 10/04/24 15:46 Pulse Rate 85 10/04/24 15:46 Respiratory Rate 18 10/04/24 15:46 Blood Pressure 145/96 10/04/24 15:46 Pulse Oximetry 96 10/04/24 15:46 Oxygen Delivery Me thod Room Air 10/04/24 15:46 MDM - Anxiety Medical Decision Making Patient presents here with an anxiety attack he feels much improved here EKG x- ray is normal he is not suicidal or homicidal he is stable for discharge follow- up with PCP return if worsening. Medical Records I reviewed the patient's medical records. Lab Data Radiology Impressions Chest X-Ray 10/04/24 15:44 IMPRESSION: No acute findings. All radiology interpretation(s) finalized by discharge EKG Data EKG 1: I personally reviewed and interpreted this EKG as follows: EKG interpretation date: 10/04/24 EKG interpretation time: 15:56 Interpretation: Chest X-Ray 10/04/24 15:44 IMPRESSION: No acute findings. nsr hr [address] or t wave abnormalities qrs 77 qtc 416 Other EKG comments: Chest X-Ray 10/04/24 15:44 IMPRESSION: No acute findings. Discharge Plan Discharge Patient Disposition: Home Clinical Impression: Acute anxiety Condition: Stable Prescriptions: No Action clonidine HCl 0.1 mg tablet 0.1 mg PO TID methadone 10 mg tablet 10 mg PO Q6H gabapentin 300 mg capsule 600 mg PO TID PRN (Reason: chronic pain) 30 Days Qty: 180 5RF baclofen 10 mg tablet 10 mg PO TID Qty: 90 5RF mirtazapine 15 mg tablet 15 mg PO .q hs Qty: 30 5RF methylphenidate HCl 20 mg tablet 20 mg PO BID 30 Days Qty: 60 0RF promethazine 25 mg tablet 25 mg PO Q4H PRN (Reason: nausea and vomiting) Qty: 20 0RF Proctofoam HC 1-1 % foam 1 applic GA BID PRN (Reason: hemorrhoids) Qty: 10 0RF Discharge Orders: Discharge ED (Routine); Ordered 10/04/24 Ordered By: Demian Mckeon Referrals: Chuy Galindo MD [Primary Care Provider] - 4-7 days Discharge Diet: Advance as tolerated Discharge Activity: Resume usual activity Patient Instructions: Anxiety (ED) Coding Level of Care Code ED Vp Of Product for William Chadwick
[2024-10-04 15:46] VITALS: BP 145/96; PULSE 85; RESP 18; TEMP 36.7; O2SAT 96
--- NOTE | 2024-10-04 15:56 | ECG_ITS ---
[facility] Test Date: 2024-10-04 Pat Name: Joby Jean Department: Room: Gender: Male General Adjuster: : 1975 Requested By: Demian Mckeon Order Number: [id number] Rachid MD: Marleen Paez M.D. Measurements Intervals [place] Rate: 72 P: 62 VA: 145 QRS: 15 QRSD: 77 T: 46 QT: 392 QTc: 430 Interpretive Statements SINUS RHYTHM NONSPECIFIC T-WAVE ABNORMALITY Compared to ECG 10/04/2024 00:50:43 T-wave abnormality now present Sinus bradycardia no longer present Electronically Signed On 10-06-2024 21:33:35 [employer] by Marleen Paez M.D. [email or web address]
[2024-10-04] MEDS: LORazepam 2 mg/mL INJ 1 mL IM (16:02)
[2024-10-04 16:52] VITALS: BP 115/74; PULSE 67; O2SAT 96
== END 2024-10-04 16:54 | disposition home or self-care (01) ==
PROVIDERS: Emergency Provider Emergency Medicine; PCP Family Medicine Adult Medicine
DX: F41.8 Other specified anxiety disorders (principal); F17.210 Nicotine dependence, cigarettes, uncomplicated
CPT/HCPCS: 71045; 93005; 96372; 99284; J2060

== ENCOUNTER → 2024-10-21 10:55 | Outpatient (BNVA) | payer MEDICAID, SELFPAY | PROVIDERS: PCP Family Medicine Adult Medicine; Visit Provider Family Medicine | DX: Z01.818 Encounter for other preprocedural examination (principal) | CPT/HCPCS: 80048; 81003; 85025 ==

== ENCOUNTER 2024-11-08 08:46 | Emergency (ER) | payer MEDICAID, SELFPAY ==
[2024-11-08 08:49] VITALS: BP 131/84; PULSE 73; RESP 18; TEMP 36.9; O2SAT 95
[2024-11-08] MEDS: LORazepam 2 mg Tablet PO (08:54)
--- NOTE | 2024-11-08 08:59 | ED_ITS ---
HPI - Anxiety General: Chief Complaint: Anxiety Stated Complaint: Anxiety Time Seen by Provider: 11/08/24 08:48 Source: patient Mode of arrival: ambulatory Limitations: no limitations History of Present Illness: Patient is a 49-year-old male who is well-known to our emergency department here for anxiety. Patient states he has a chronic history of back pain that he is seeing Dr. Lopez for. He states they are in the process of trying to get insurance to cover another back procedure because he reportedly has loosening of his back hardware. He states he takes baclofen for back spasms. He states he missed his dose yesterday evening this when he awoke with this morning he was having a severe back spasm that then triggered his anxiety and a panic attack thus causing him to call an ambulance. He has no new acute neurologic deficits related to the back pain. Denies fevers. complaint: anxiety and other (back spasm) Onset (ago): hour(s) Severity: moderate Quality: constant Place: home History of similar episodes: Yes Provoking factors: emotional stress and other (pain) Relieving factors: medication Exacerbating factors: nothing Associated symptoms: Deny chest pain, chills, fever(s), headache(s), malaise, nausea, palpitations, syncope or vomiting Related Data Home Medications Medication Instructions Recorded Confirmed clonidine HCl 0.1 mg tablet 0.1 mg PO TID 02/16/23 11/02/24 methadone 10 mg tablet 10 mg PO Q6H 12/29/23 11/02/24 Previous Rx's Medication Instructions Recorded baclofen 10 mg tablet 10 mg PO TID Chronic pain s/p back 04/12/24 surgery #90 tabs promethazine 25 mg tablet 25 mg PO Q4H PRN nausea and 07/30/24 vomiting #20 tabs hydrocortisone 1 %-pramoxine 1 % 1 applic [place] BID PRN hemorrhoids 09/27/24 rectal foam (Proctofoam HC) #10 grams mirtazapine 15 mg tablet 15 mg PO .q hs #30 tabs 10/24/24 methylphenidate HCl 20 mg tablet 20 mg PO BID add 30 days #60 tabs 10/31/24 gabapentin 300 mg capsule 600 mg (2 x 300 mg) PO TID PRN 11/02/24 chronic pain 30 days #180 caps Allergies Allergy/AdvReac Type Severity Reaction Status Date / Time levetiracetam [From Keppra] Allergy ADR-Vomitin Verified 11/02/24 08:00 g trazodone Allergy ADR-Nightma Verified 11/02/24 08:00 re haloperidol [From Haldol] AdvReac Severe ADR-Anxiety Verified 11/02/24 08:00 Iodinated Contrast Media AdvReac Mild ADR-Itching Verified 11/02/24 08:00 contrast Allergy hives Uncoded 11/02/24 08:00 Review of Systems Const: Denies: fever(s), chills, body aches, fatigue or malaise Card: Denies: chest pain, palpitations, irregular heart rhythm, edema, swelling of feet/ankles, lightheadedness, syncope, pre-syncope, dyspnea on exertion, orthopnea, leg pain with exertion or acrocyanosis Resp: Denies: dyspnea GI: Denies: abdominal pain, nausea, vomiting or diarrhea : Denies: flank pain, dysuria or hematuria Musc: Reports: back pain; Denies: neck pain, extremity pain, extremity swelling, joint pain or joint s welling Skin/Breast: Denies: rash Neuro: Denies: headache(s), numbness in extremities, weakness in extremities, sensory changes or dizziness Psych: Reports: anxiety; Denies: suicidal ideation PFSH ED PFSH: Medical History Cauda equina compression Lumbar vertebral collapse ADD (attention deficit disorder) History of drainage of abscess multiple Trauma in childhood Social anxiety disorder Femoral acetabular impingement Bleeding per rectum History of substance abuse Narcotic abuse Surgical History History of liver biopsy 2013 History of colonoscopy 2009 History of facial surgery 2014 Social History Smoking and tobacco/nicotine status: never used tobacco/nicotine Quit status (tobacco/nicotine): has tried quititng Number of times tried to quit tobacco: 2 Second hand smoke exposure: Yes Alcohol intake: current Substance/Drug Use: current Substance/Drug use frequency: daily Other substance/drug use details: Fentanyl Current gender identity: Male Physical Exam Const: COMMON NORMALS: no acute distress, patient oriented x3, no limitations, alert and well nourished GENERAL APPEARANCE: cooperative ORIENTATION/CONSCIOUSNESS: Yes awake, Yes oriented to person, Yes oriented to place and Yes oriented to time Resp: COMMON NORMALS: normal respiratory effort and clear to auscultation bilaterally AUSCULTATION: clear to auscultation bilaterally Cardio: COMMON NORMALS: regular rate and regular rhythm RATE: regular rate RHYTHM: regular rhythm Back/Pelvis: COMMON NORMALS: thoracic and lumbar spine normal to inspection and straight leg raise negative bilaterally THORACIC SPINE/UPPER BACK: No thoracic spinal tenderness and No paraspinal muscle tenderness LUMBAR SPINE/LOWER BACK: No lumbar spinal tenderness, Yes paraspinal muscle tenderness and Yes straight leg raise negative bilaterally PELVIS: Yes buttocks normal and No sciatic notch tenderness SACRUM: no tenderness COCCYX: no tenderness Extremity: GENERAL: Yes normal exam except as noted Neuro: VERO COMA SCALE: document GCS findings Vero coma scale eye opening: Spontaneous Vero coma scale verbal response: Orientated [place] coma scale motor response: Obey commands [place] coma scale total score: 15 COMMON NORMALS: patient oriented x3, moves all extremities, no focal motor deficits and no sensory deficits noted SENSORIUM/ORIENTATION: Yes alert, Yes oriented to person, Yes oriented to place and Yes oriented to time Course Vital Signs: Vital signs: Vital Signs Temperature 98.4 F 11/08/24 08:49 Pulse Rate 73 11/08/24 08:49 Respiratory Rate 18 11/08/24 08:49 Blood Pressure 131/84 11/08/24 08:49 Pulse Oximetry 95 11/08/24 08:49 Oxygen Delivery Me thod Room Air 11/08/24 08:49 MDM - Anxiety Medical Decision Making At time of my initial examination, patient had already been provided Ativan that was ordered by another provider. He is resting comfortably in bed and does not appear overly anxious. He is complaining about the spasms in his back. He was provided IM Toradol and Norflex. Patient will be allowed discharge from an emergency standpoint. Recommend he continue to follow-up with his behavioral health provider for his anxiety as well as Dr. Lopez for his back. Return to ED precautions given. Medical Records I reviewed the patient's medical records. No radiology studies performed this visit Discharge Plan Discharge Patient Disposition: Home Clinical Impression: Back muscle spasm, Acute anxiety Condition: Stable Prescriptions: No Action clonidine HCl 0.1 mg tablet 0.1 mg PO TID methadone 10 mg tablet 10 mg PO Q6H baclofen 10 mg tablet 10 mg PO TID Qty: 90 5RF mirtazapine 15 mg tablet 15 mg PO .q hs Qty: 30 5RF methylphenidate HCl 20 mg tablet 20 mg PO BID 30 Days Qty: 60 0RF gabapentin 300 mg capsule 600 mg PO TID PRN (Reason: chronic pain) 30 Days Qty: 180 5RF promethazine 25 mg tablet 25 mg PO Q4H PRN (Reason: nausea and vomiting) Qty: 20 0RF Proctofoam HC 1-1 % foam 1 applic AR BID PRN (Reason: hemorrhoids) Qty: 10 0RF Discharge Orders: Discharge ED (Routine); Ordered 11/08/24 Ordered By: Merry Flores Referrals: Chuy Galindo MD [Primary Care Provider] - Activity Restrictions/Additional Instructions: Please continue to follow-up with Dr. Lopez in regards to your back pain. You may follow-up with your primary care provider or behavioral health specialist in regards to your anxiety. Coding Level of Care Code ED Specimen Accessioner for William Chadwick
--- NOTE | 2024-11-08 09:51 | PC.NURSE ---
attempted to give pt medications, pt refused.pt asked multiple times 'what medication is that?' 'are you sure they actually gave me ativan earlier?' 'i dont want the medication, actually i will take it'. pt went back and forth multiple times on if he was going to take the meds or not. pt decided it would be best for him not to take medication. provider and primary nurse notified.
[2024-11-08 10:11] VITALS: BP 123/72; PULSE 68; O2SAT 99
== END 2024-11-08 10:12 | disposition home or self-care (01) ==
PROVIDERS: Emergency Provider Physician Assistant; PCP Family Medicine Adult Medicine
DX: M62.830 Muscle spasm of back (principal); F41.8 Other specified anxiety disorders
CPT/HCPCS: 99283

== ENCOUNTER 2024-11-09 15:50 | Observation (INO) | payer MEDICAID, SELFPAY ==
[2024-11-09] VITALS (17 sets, daily range): BP systolic 87–134; BP diastolic 51–96; PULSE 55–68; RESP 16–18; TEMP 36.2–36.7; O2SAT 92–100; BMI 22.1; BMI 22.8
--- NOTE | 2024-11-09 | XR_ITS ---
WS: [id number] Exam: XR lumbar spine 2-3V* [id number] Date/Time of Exam: 11/09/2024 12:00 AM Reason For Exam: CHRIS PICS Single intraoperative lateral view of the lumbar spine is submitted. The image was obtained for intra operative visualization.
--- NOTE | 2024-11-09 13:11 | W.PM.OPSUD ---
Surgery/Procedure H&P Update DATE OF PROCEDURE: November 09, 2024 DATE H&P PERFORMED: 10/21/23 H&P UPDATE INFORMATION: I have reviewed H&P completed within last 30 days, I have examined patient prior to procedure and No changes to prior documentation PREOP DIAGNOSIS: Osteomyelitis; failed hardware; kyphosis PLANNED PROCEDURE: Operation Date: 11/09/24 14:30 Proposed Procedures p Spinal Fusion PSF(Not Applicable) - Jacob Lopez DO s Lumbar Spine Decompression Lumbar Decompression(Not Applicable) - DO jose Ca Hardware Removal Lumbar(Not Applicable) - Jacob Lopez DO
--- NOTE | 2024-11-09 13:40 | ANES.PREANE2 ---
Pre-Anesthetic Assessment Height/Weight: Height 6 ft 1 in Weight 168 lb Preop Diagnosis: Osteomyelitis; failed hardware; kyphosis Operation Date: 11/09/24 14:30 Proposed Procedures p Spinal Fusion PSF(Not Applicable) - Jacob Lopez DO s Lumbar Spine Decompression Lumbar Decompression(Not Applicable) - Jacob Lopez DO s Hardware Removal Lumbar(Not Applicable) - Jacob Lopez DO Was Beta Sebastien taken within 24 hours: N/A Was Clonidine taken within 24 hours: N/A Last intake: Intake Last Liquid Date 11/08/24 Last Liquid Time 19:30 Last Solid Date 11/08/24 Last Solid Time 19:30 Social Tobacco and No alcohol Exam alert, oriented x 3, clear to auscultation bilaterally and regular rate & rhythm Airway Submandibular: within normal limits Cervical ROM: within normal limits Mallampati: Class II Dentition: false Anesthetic Plan ASA status: 3 Anesthesia: General Other: No prior issues with anesthesia NPO since yesterday Patient has a history of polysubstance abuse, clean for 2 years. On chronic methadone. Taken today Hypertension on clonidine, taken today Patient has hepatitis C, no treatment PTSD Labs 10/21/2024 reviewed acceptable for procedure Echo showing EF 60% Plan for general anesthesia Medications/Allergies Home Medications Medication Instructions Recorded Confirmed Last Taken Type clonidine HCl 0.1 mg tablet 0.1 mg PO TID 02/16/23 11/08/24 11/09/24 History methadone 10 mg tablet 80 mg PO Q6H 12/29/23 11/09/24 11/08/24 History promethazine 25 mg tablet 25 mg PO Q4H PRN nausea and 07/30/24 11/08/24 Unknown Rx vomiting #20 tabs hydrocortisone 1 %-pramoxine 1 % 1 applic [place] BID PRN hemorrhoids 09/27/24 11/08/24 Unknown Rx rectal foam (Proctofoam HC) #10 grams mirtazapine 15 mg tablet 15 mg PO .q hs #30 tabs 10/24/24 11/08/24 11/08/24 Rx gabapentin 300 mg capsule 600 mg (2 x 300 mg) PO TID PRN 11/02/24 11/09/24 11/09/24 Rx chronic pain 30 days #180 caps baclofen 10 mg tablet 10 mg PO QID Chronic pain s/p back 1211/08/24 11/09/24 History surgery methylphenidate HCl 20 mg tablet 40 mg PO BID add 11/08/24 11/08/24 11/08/24 History Allergies Allergy/AdvReac Type Severity Reaction Status Date / Time levetiracetam [From Keppra] Allergy ADR-Vomitin Verified 11/08/24 14:36 g trazodone Allergy ADR-Nightma Verified 11/08/24 14:36 re haloperidol [From Haldol] AdvReac Severe ADR-Anxiety Verified 11/08/24 14:36 Iodinated Contrast Media AdvReac Mild ADR-Itching Verified 11/08/24 14:36 contrast Allergy hives Uncoded 11/08/24 14:36 [facility] Anesthesia Medical History Cauda equina compression Lumbar vertebral collapse ADD (attention deficit disorder) History of drainage of abscess multiple Trauma in childhood Social anxiety disorder Femoral acetabular impingement Bleeding per rectum History of substance abuse Narcotic abuse Surgical History History of liver biopsy 2013 History of colonoscopy 2009 History of facial surgery 2014 Social History Smoking and tobacco/nicotine status: never used tobacco/nicotine Quit status (tobacco/nicotine): has tried quititng Number of times tried to quit tobacco: 2 Second hand smoke exposure: Yes Alcohol intake: current Substance/Drug Use: current Substance/Drug use frequency: daily Other substance/drug use details: Fentanyl Current gender identity: Male Data Anesthesia Cardiac Studies: Echocardiogram 08/04/23 Transesophageal Echocardiogram 10/16/23
[2024-11-09] MEDS: sodium chloride 0.9% 1,000 ML 30 ML IV (13:55)
[2024-11-09] MEDS: midazolam 1 mg/mL INJ 2 mL 2 MG IVP (14:00)
[2024-11-09] MEDS: ceFAZolin 2,000 mg SDV 2000 MG IVP ×2 (14:06→21:41)
[2024-11-09] MEDS: VANCOMYCIN ADD-Vantage 1,000 MG VIAL 1000 MG XX (15:07)
[2024-11-09] MEDS: lidocaine-epi 1% 20 mL INJ 10 ML INJECTION (15:09)
[2024-11-09] MEDS: heparin, porcine 1,000 unit/mL INJ 10 mL 10000 UNIT IRRIGATION (15:10)
--- NOTE | 2024-11-09 16:45 | P.OP_ITS ---
Operative Report Date of procedure: November 09, 2024 Pre-op diagnosis: Hardware failure Discitis Post-op diagnosis: same Procedure done: 1. L3-L5 posterior spine fusion 2. L3-L5 posterior spinous rotation 3. Use of computer navigation/stereotactic for the spine 4. Bone marrow aspiration from right iliac crest Specimens removed/disposition: L4 on right culture Surgeon: Jacob Lopez DO Estimated blood loss (mL): 50 Procedure: 1. L3-L5 posterior spine fusion 2. L3-L5 posterior spinous rotation 3. Use of computer navigation/stereotactic for the spine 4. Bone marrow aspiration from right iliac crest Patient brought the op suite after undergoing anesthesia was placed in the prone position. All his impingement well-padded. The bottom half incision was incised. The L3 and L4 screws were identified. The L4-5 facet and transverse process were exposed bilaterally. The L4 screw Was loosened. The tulips removed from underneath the cordell and then the screw was backed out this was done bilaterally. A culture was taken of the L4 pedicle on the right side. Next tension was brought to getting the bone marrow aspirate from right iliac crest. A separate incision through the fascia was made and the bone marrow aspirate kit was used awl was inserted then 10 cc of bone marrow aspirate were aspirated. Next attention was brought to placing the computer navigation pins 2 pins were placed in radiographs. These pins were later removed at the end the case. The fiducial was then attached to the pins. C-arm was then brought in and spun around the patient. The information from the C arm was then loaded the computer. This was then used to place the L5 pedicle screws. Next and is brought to placing the L5 pedicle screws. This was done by using the computer navigated awl to find the pedicle. Pedicle feeler was used f ollowed by placing the pedicle screws. This was all done using computer navigation. The L5 pedicle screws were placed bilaterally. Next the cordell was cut in order to fit the cordell cordell connector. The cordell cordell connector was placed and locked into position. Then the cordell was placed through the L5 to open connecting to the cordell connecting the L3-L5 instrumentation. This was done bilaterally. Next tension was brought to decorticating transverse processes of L3-L4 and L5. This was done bilaterally. And then ostial amp bone graft was packed into the gutters. Wound was irrigated vancomycin powder was placed deep drain was placed wound was closed with layered fashion with Vicryl and Monocryl suture. Sterile dressings were applied patient transferred to the PACU in stable condition.
--- NOTE | 2024-11-09 17:59 | ANE.PACU2 ---
Inpatient post-anesthesia follow up: Airway intact: Yes Vital signs: Temperature 97.3 F Pulse Rate 74 Respiratory Rate 16 Blood Pressure 138/87 Pulse Oximetry 92 Oxygen Delivery Me thod Room Air Oxygen Flow Rate 6 Fraction of Inspir ed Oxygen Hydration adequate: Yes Nausea and vomiting: No Pain level: 1 Mental status: Baseline
[2024-11-09] MEDS: docusate sodium 100 mg Capsule PO (18:48)
[2024-11-09] MEDS: methylphenidate 10 mg Tablet 40 MG PO (18:48)
[2024-11-09] MEDS: oxyCODONE-APAP 10-325 mg Tablet PO (18:49)
[2024-11-09] MEDS: lactated ringers 1,000 ML 90 ML IV (18:50)
[2024-11-09] MEDS: HYDROmorphone 1 mg/mL INJ 1 mL 2 MG IVP (21:40)
--- NOTE | 2024-11-09 21:41 | P.CONIM_ITS ---
Providers/Reason For Consult Consulting Physician/Specialty*: Hospitalist Reason for Consult*: Patient was wanting to leave AMA after surgery Attending Physician: Jacob Lopez DO History of Present Illness History of Present Illness Joby Jean is a 49 year old male status post lumbar spine fusion, hardware removal, patient has history of lumbar decompression surgery with cauda equina signs, postoperatively patient was wanting to leave AMA however he has not been cleared by Dr. Lopez to be discharged at this point, hospitalist service was requested to monitor him overnight. 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 For opioid addiction has been taking methadone. Review of records revealed that patient has difficulty speaking with behavioral outburst and seizures. He does have a legal guardian. He takes methadone, baclofen, Ritalin for ADD and mirtazapine along clonidine. . At the time my evaluation he is not endorsing significant pain stating that pain is under control he is requesting his mirtazapine baclofen and gabapentin evening dose Review of Systems Const: Denies: fever(s) Eyes: Denies: change in vision ENMT: Denies: throat pain Card: Denies: chest pain Resp: Denies: dyspnea GI: Denies: abdominal pain Musc: Reports: back pain Medications/Allergies Home Medications Medication Instructions Recorded Confirmed Last Taken Type clonidine HCl 0.1 mg tablet 0.1 mg PO TID 02/16/23 11/08/24 11/09/24 History methadone 10 mg tablet 80 mg PO Q6H 12/29/23 11/09/24 11/08/24 History promethazine 25 mg tablet 25 mg PO Q4H PRN nausea and 07/30/24 11/08/24 Unknown Rx vomiting #20 tabs hydrocortisone 1 %-pramoxine 1 % 1 applic [place] BID PRN hemorrhoids 09/27/24 11/08/24 Unknown Rx rectal foam (Proctofoam HC) #10 grams mirtazapine 15 mg tablet 15 mg PO .q hs #30 tabs 10/24/24 11/08/24 11/08/24 Rx gabapentin 300 mg capsule 600 mg (2 x 300 mg) PO TID PRN 11/02/24 11/09/24 11/09/24 Rx chronic pain 30 days #180 caps baclofen 10 mg tablet 10 mg PO QID Chronic pain s/p back 11/08/24 11/08/24 11/09/24 History surgery methylphenidate HCl 20 mg tablet 40 mg PO BID add 11/08/24 11/08/24 11/08/24 History Allergies Allergy/AdvReac Type Severity Reaction Status Date / Time levetiracetam [From Keppra] Allergy ADR-Vomitin Verified 11/08/24 14:36 g trazodone Allergy ADR-Nightma Verified 11/08/24 14:36 re haloperidol [From Haldol] AdvReac Severe ADR-Anxiety Verified 11/08/24 14:36 Iodinated Contrast Media AdvReac Mild ADR-Itching Verified 11/08/24 14:36 contrast Allergy hives Uncoded 11/08/24 14:36 Current Medications Generic Name Dose Route Start Last Admin Trade Name Freq PRN Reason Stop Dose Admin Baclofen 10 mg 11/09/24 17:00 11/09/24 18:15 Baclofen 10 Mg Tablet PO Not Given QID AARTI Docusate Sodium 100 mg 11/09/24 18:00 11/09/24 18:48 Docusate Sodium 100 Mg Capsule PO 100 mg BID AARTI Administration Lactated Ringer's 1,000 mls @ 90 mls/hr 11/09/24 16:45 11/09/24 18:50 Lactated Ringers IV 90 mls/hr .[id number] AARTI Administration Methadone HCl 80 mg 11/09/24 16:45 11/09/24 18:15 Methadone 10 Mg Tablet PO Not Given Q6H AARTI Methylphenidate HCl 40 mg 11/09/24 18:00 11/09/24 18:48 Methylphenidate 10 Mg Tablet PO 40 mg BID AARTI Administration Oxycodone/Acetaminophen 1 - 2 tab 11/09/24 16:42 11/09/24 18:49 Oxycodone-Apap 10-325 Mg Tablet PO 2 tab Q4H PRN Administration MODERATE TO SEVERE PAIN PFSH Acute PFSH: Medical History Cauda equina compression Lumbar vertebral collapse ADD (attention deficit disorder) History of drainage of abscess multiple Trauma in childhood Social anxiety disorder Femoral acetabular impingement Bleeding per rectum History of substance abuse Narcotic abuse Surgical History History of liver biopsy 2012 History of colonoscopy 2009 History of facial surgery 2013 Social History Smoking and tobacco/nicotine status: never used tobacco/nicotine Quit status (tobacco/nicotine): has tried quititng Number of times tried to quit tobacco: 2 Second hand smoke exposure: Yes Alcohol intake: current Substance/Drug Use: current Substance/Drug use frequency: daily Other substance/drug use details: Fentanyl Current gender identity: Male Vitals/I&O/Wt Last Vital Signs Temp 98.0 F 11/09/24 19:39 Pulse 65 11/09/24 19:39 Resp 17 11/09/24 19:39 BP 134/51 11/09/24 19:39 Pulse Ox 96 11/09/24 19:39 O2 Del Method Room Air 11/09/24 19:39 O2 Flow Rate 6 11/09/24 17:26 11/09/24 11/09/24 11/09/24 06:59 14:59 22:59 Intake Total 1200 / 1200 Output Total 50 / 50 Balance 1150 / 1150 Weight last 48 hrs Weight 76.294 kg Weight 76.204 kg Physical Exam Narrative: Patient is awake and alert No signs of cauda equina GCS 15 He was speaking with his guardian over the phone S1, S2 Hemodynamically stable Euvolemic Not complaining of significant distress Back pain under control Pleasant and cooperative during my evaluation Patient is waiting to stay Urinary Catheter Management: Mcghee: Cath Placed During This Visit: yes, but has since been removed by the nurse Urinary Catheter Date of Insertion: 11/09/24 Urinary Catheter Time of Insertion: 14:30 Date Urinary Catheter Removed: 11/09/24 Time Urinary Catheter Discontinued: 16:39 A&P Assessment and plan (1) Acute anxiety: (2) ADD (attention deficit disorder): Qualifiers: Hyperactivity presence: present Attention deficit-hyperactivity disorder type: predominantly inattentive Qualified Code(s): F90.0 - Attention- deficit hyperactivity disorder, predominantly inattentive type (3) Major depressive disorder, recurrent severe without psychotic features: (4) Cannabis use disorder, severe, dependence: (5) Methadone dependence: (6) Chronic hepatitis C: Qualifiers: Hepatic coma status: without hepatic coma Qualified Code(s): B18.2 - Chronic viral hepatitis C (7) Osteomyelitis of lumbar spine: (8) Back muscle spasm: (9) Memory loss: (10) Traumatic brain injury: Qualifiers: Encounter type: sequela Loss of consciousness presence/duration: with LOC of unspecified duration Qualified Code(s): S06.9X9S - Unspecified intracranial injury with loss of consciousness of unspecified duration, sequela (11) Seizure after head injury: (12) Status post lumbar spinal fusion: (13) Status post lumbar laminectomy: (14) Paresthesia of right leg: Plan Patient is willing to stay, he has spoken with his guardian Iris, he is not plan to leave at this point, I do not think we need wrist restraints chemical restraints, however I would put him on one-to-one observation He may continue his baclofen, gabapentin. Holding off on mirtazapine for now. Holding off on Adderall which she can resume by the morning. DVT prophylaxis SCDs No active signs of cauda equina Hemodynamically stable Regular diet PT in the morning Consult Attestations Medical Necessity Statement: Discharge as per orthopedics Diagnoses Acute anxiety F41.9 Attention deficit hyperactivity disorder (ADHD), predominantly inattentive type F90.0 Hyperactivity presence: present Attention deficit-hyperactivity disorder type: predominantly inattentive Major depressive disorder, recurrent severe without psychotic features F33.2 Cannabis use disorder, severe, dependence F12.20 Methadone dependence F11.20 Chronic hepatitis C without hepatic coma B18.2 Hepatic coma status: without hepatic coma Osteomyelitis of lumbar spine M46.26 Back muscle spasm M62.830 Memory loss R41.3 Traumatic brain injury with loss of consciousness, sequela S06.9X9S Encounter type: sequela Loss of consciousness presence/duration: with LOC of unspecified duration Seizure after head injury R56.1 Status post lumbar spinal fusion Z98.1 Status post lumbar laminectomy Z98.890 Paresthesia of right leg R20.2
[2024-11-09] MEDS: promethazine 25 mg Tablet PO (21:46)
--- NOTE | 2024-11-09 21:57 | PC.NURSE ---
Patient refusing Methodone, stating he only takes it in the morning. Patient states he already took his home medications and listed Clonidine, Gabapentin, Remeron, Baclofen. Patient educated to not take his home medications, that we will administer them.
--- NOTE | 2024-11-09 23:23 | PC.NURSE ---
Patient requesting pain medication. This nurse brought Dilaudid 0.5 mg that was ordered PRN to patient's room. Patient asked the dose of the Dilaudid. This nurse stated half a milligram. Patient states that dose isn't going to work for me, you need to call the doctor and have a higher dose. I explained to patient that we can try the 0.5 mg dose first and if it doesn't work for his pain, then we can call the physician to ask for the dose to be increased. Patient states then I just won't take it at all. Patient refusing Dilaudid and wanting to leave AMA. Voicemail left for Dr. Lopez. Patient's guardian called, stating that the patient cannot leave, as she is his guardian and does not want him to leave. Verified with charge nurse and housekeeping cleaner that patient cannot make the decision to leave due to having a guardian. Patient became verbally aggressive with staff when informed that he cannot leave. He stated I'll just rip these things out of my arm and walk out of here and you can't stop me. Patient on speaker phone with guardian, yelling and cussing at guardian as guardian was explaining to him why he needs to stay. Dr. Lopez called back and ordered one time dose of [address] Ramos was consulted and came to see patient. Dr. Ramos informed that a one-on-one sitter is needed due to patient being an elopement risk and this order was received.
[2024-11-10] VITALS (11 sets, daily range): BP systolic 131–143; BP diastolic 65–87; PULSE 56–74; RESP 16–18; TEMP 36.3–37.1; O2SAT 92–95
[2024-11-10] MEDS: oxyCODONE-APAP 10-325 mg Tablet PO ×2 (00:52→06:18)
[2024-11-10] MEDS: HYDROmorphone 1 mg/mL INJ 1 mL 0.5 MG IVP ×3 (00:53→06:22)
--- NOTE | 2024-11-10 00:56 | PC.NURSE ---
PRN Oxycodone brought to patient for pain. Patient states can I have the IV stuff, it works so much better. Patient educated that he will not be able to have the IV stuff at home and it is best to try oral first. Patient insists that he must have the IV Dilaudid for pain.
[2024-11-10 02:00] LABS: Basophils % 0.1 %; Hematocrit 33.5 % (37-53); Lymphocytes # 0.6 10^3/uL (0.8-4.8); Lymphocytes % 5.4 %; Mean Corpuscular HGB Conc 29.3 g/dL (30-55); Mean Corpuscular Hemoglobin 22.5 pg (27-33); Mean Platelet Volume 9.1 fL (7.4-10.4); Monocytes # 0.2 10^3/uL (0.2-0.9); Monocytes % 1.7 %; Neutrophils # 10.42 10^3/uL (1.8-7.7); Neutrophils % 92.5 %; Nucleated Red Blood Cells % 0 %; Platelet Count 350 10^3/cmm (157-399); Red Blood Count 4.35 10^6/uL (3.85-5.65); Red Cell Distribution Width 17.4 % (12.1-15.1); White Blood Count 11.26 10^3/uL (3.29-11.43)
[2024-11-10 02:25] LABS: Anion Gap 18.3 (5-19); Blood Urea Nitrogen 15 mg/dL (6-20); Calcium 9.1 mg/dL (8.5-10.5); Carbon Dioxide 24 mmol/L (22-29); Chloride 101 mmol/L (98-107); Creatinine Clr Calc Pharmacy 80.2892; Glomerular Filtration Rate 64.1 mL/min (90-130); Glucose 125 mg/dL (65-115); Osmolality Calculated 290 mOsm/kg (285-295); Potassium 4.3 mmol/L (3.5-5.1); Sodium 139 mmol/L (136-145)
[2024-11-10] MEDS: lactated ringers 1,000 ML 90 ML IV (06:18)
[2024-11-10] MEDS: ceFAZolin 2,000 mg SDV 2000 MG IVP (06:19)
--- NOTE | 2024-11-10 08:07 | P.DS_ITS ---
Discharge Providers Date of Admission: 11/09/24 15:50 Date of Discharge: November 10, 2024 Attending Provider at Admission: Jacob Lopez DO Attending Provider at Discharge: Jacob Lopez DO Diagnoses at Discharge Discharge Diagnosis (1) Acute anxiety: Status: Acute (2) ADD (attention deficit disorder): Status: Acute Qualifiers: Hyperactivity presence: present Attention deficit-hyperactivity disorder type: predominantly inattentive Qualified Code(s): F90.0 - Attention- deficit hyperactivity disorder, predominantly inattentive type (3) Major depressive disorder, recurrent severe without psychotic features: Status: Acute (4) Cannabis use disorder, severe, dependence: Status: Acute (5) Methadone dependence: Status: Acute (6) Chronic hepatitis C: Status: Acute Qualifiers: Hepatic coma status: without hepatic coma Qualified Code(s): B18.2 - Chronic viral hepatitis C (7) Osteomyelitis of lumbar spine: Status: Acute (8) Back muscle spasm: Status: Acute (9) Memory loss: Status: Acute (10) Traumatic brain injury: Status: Acute Qualifiers: Encounter type: sequela Loss of consciousness presence/duration: with LOC of unspecified duration Qualified Code(s): S06.9X9S - Unspecified intracranial injury with loss of consciousness of unspecified duration, sequela (11) Seizure after head injury: Status: Acute (12) Status post lumbar spinal fusion: Status: Acute Permanent problem details: Dr. Lopez with fusion of T10-L4 on 12/18/2023 (13) Status post lumbar laminectomy: Status: Acute Permanent problem details: Dr. Lopez with fusion of T10-L4 on 12/18/2023 (14) Paresthesia of right leg: Status: Acute Physical Exam Narrative: Patient doing well much better than last night. At this point he pain is well- controlled. Will have him work with physical therapy that he to be discharged. Urinary Catheter Management: Mcghee: Cath Placed During This Visit: yes, but has since been removed by the nurse Urinary Catheter Date of Insertion: 11/09/24 Urinary Catheter Time of Insertion: 14:30 Date Urinary Catheter Removed: 11/09/24 Time Urinary Catheter Discontinued: 16:39 Discharge Data Studies Completed and Pending Pending at discharge Category Date Time Status C-arm Fluoroscopy 55992 Routine Exams 11/09/24 13:00 Taken Anaerobic Culture Routine Lab 11/09/24 15:13 Received Tissue Culture and Gram Stain Routine Lab 11/09/24 15:13 Received Laboratory Results WBC 11.26 10^3/uL (3.29-11.43) 11/10/24 01:34 RBC 4.35 10^6/uL (3.85-5.65) 11/10/24 01:34 Hgb 9.80 g/dL (11.27-16.99) L 11/10/24 01:34 Hct 33.5 % (37-53) L 11/10/24 01:34 MCV 77.0 fl (82-101) L 11/10/24 01:34 MCH 22.5 pg (27-33) L 11/10/24 01:34 MCHC 29.3 g/dL (30-55) L 11/10/24 01:34 RDW 17.4 % (12.1-15.1) H 11/10/24 01:34 Plt Count 350 10^3/cmm (157-399) 11/10/24 01:34 MPV 9.1 fL (7.4-10.4) 11/10/24 01:34 Neut % (Auto) 92.5 % 11/10/24 01:34 Lymph % (Auto) 5.4 % 11/10/24 01:34 Arroyo % (Auto) 1.7 % 11/10/24 01:34 Eos % (Auto) 0.0 % 11/10/24 01:34 Baso % (Auto) 0.1 % 11/10/24 01:34 Neut # (Auto) 10.42 10^3/uL (1.8-7.7) H 11/10/24 01:34 Lymph # (Auto) 0.6 10^3/uL (0.8-4.8) L 11/10/24 01:34 Arroyo # (Auto) 0.2 10^3/uL (0.2-0.9) 11/10/24 01:34 Eos # (Auto) 0.0 10^3/uL (0.0-0.8) 11/10/24 01:34 Baso # (Auto) 0.0 10^3/uL (0.0-0.1) 11/10/24 01:34 Nucleated RBC % (auto) 0 % 11/10/24 01:34 Nucleated RBCs # 0.0 /100WBC 11/10/24 01:34 Sodium 139 mmol/L (136-145) 11/10/24 01:34 Potassium 4.3 mmol/L (3.5-5.1) 11/10/24 01:34 Chloride 101 mmol/L (98-107) 11/10/24 01:34 Carbon Dioxide 24 mmol/L (22-29) 11/10/24 01:34 Anion Gap 18.3 (5-19) 11/10/24 01:34 BUN 15 mg/dL (6-20) 11/10/24 01:34 Creatinine 1.2 mg/dL (0.7-1.2) 11/10/24 01:34 GFR Calculation 64.1 mL/min (90-130) L 11/10/24 01:34 Glucose 125 mg/dL (65-115) H 11/10/24 01:34 Calculated Osmolality 290 mOsm/kg (285-295) 11/10/24 01:34 Calcium 9.1 mg/dL (8.5-10.5) 11/10/24 01:34 Vitals Last Vital Signs Temp 97.3 F L 11/10/24 07:15 Pulse 56 L 11/10/24 07:15 Resp 16 11/10/24 06:22 BP 138/87 11/10/24 07:15 Pulse Ox 95 11/10/24 07:15 O2 Del Method Room Air 11/10/24 07:15 O2 Flow Rate 6 11/09/24 17:26 Discharge Plan Discharge Patient Disposition: Home Condition: Stable Prescriptions: New oxycodone 10 mg tablet 10 mg PO Q4H PRN (Reason: pain) 7 Days Qty: 42 0RF Continued clonidine HCl 0.1 mg tablet 0.1 mg PO TID methadone 10 mg tablet 80 mg PO Q6H mirtazapine 15 mg tablet 15 mg PO .q hs Qty: 30 5RF gabapentin 300 mg capsule 600 mg PO TID PRN (Reason: chronic pain) 30 Days Qty: 180 5RF promethazine 25 mg tablet 25 mg PO Q4H PRN (Reason: nausea and vomiting) Qty: 20 0RF baclofen 10 mg tablet 10 mg PO QID methylphenidate HCl 20 mg tablet 40 mg PO BID Proctofoam HC 1-1 % foam 1 applic [place] BID PRN (Reason: hemorrhoids) Qty: 10 0RF Discharge Orders: Discharge Order (Routine); Ordered 11/10/24 Ordered By: Jacob Lopze Discharge Diet: Advance as tolerated Discharge Activity: Limit activity as instructed Patient Instructions: Acute Wound Care (DC), Opioid Safety, Post Anesthesia Care Activity Restrictions/Additional Instructions: Thank you for [facility] for your care! The following is a list of instructions, from your provider, to follow upon your discharge to ensure you have the optimal recovery from your recent injury orsurgery. Follow-up care is a quintana part of your treatment and safety. Be sure to make and go to all appointments, and call your doctor if you are having problems. If you do not already have a follow-up appointment made, call Dr. Lopez office in the next 1-3 days to make follow up appointment for 1 weeks at [phone]. It is also a good idea to know your test results and keep a list of the medicines you take. Medications will be prescribed for you at your provider's discretion. These medications are to be used as instructed; if they are taken more often that prescribed they will not be refilled early and in most cases will not be refilled at all. > When a refill is needed,you should contact lori monroe 2-3 business days before your prescription runs out. Medications will NOT be refilled by nutrition services assistant providers after hours! > Many pain medications contain Tylenol (Acetaminophen). Do not consume more than 4,000 mg of Tylenol per day in total with any combination ofmedications. > Pain medications can cause constipation. Please use an over the counter stool softener as directed, while taking pain medications. Consulty our local pharmacist with questions or recommendations on stool softeners. If constipation persists, contact our office or your primary care provider. > While under our care,you are not to receive pain medications or other controlled substances from any other provider unless our office is notified and approves. Any attempts to do so will result in refusal to prescribe any further pain medications and possible dismissal from our practice. ? Follow-up in 1 week keep dressing on we will change in clinic ? Showering is permitted, however we ask that you do not take a bath, sit in a whirlpool / Jacuzzi, or go swimming for 1 month. For only the first 2 days after surgery, lt wilt be necessary for you to cover your wound/dressing with plastic and tape to keep it dry. ? Walking is essential for the healing process after surgery. We would like you to slowly advance your walking. This should be done on relatively flat clear ground (inside or out) or can be done on a treadmill. Remember this goal does not have to happen all at once, slowly increase your distance and duration. This can be broken into more more than one walk per day as tolerated. Patients who walk as directed after surgery rarely require Physical Therapy. In the unlikely event this issue arises your provider will direct hospital staff to make the appropriate arrangements. ? No lifting over 5 pounds {a gallon of milk) or bending/twisting until further notice. Each of these activities places an unnecessary amount of stress onto the body and can impede the delicate healing process. > Instead of bending at the waist, keep your back straight and bend at the knees. > Instead of twisting your torso, keep your back straight and turn your entire body with your feet. ? You may sleep in any position which makes you comfortable. Many patients find comfort sleeping in a reclining chair. It is not abnormal to have difficulty sleeping for the first several weeks following your surgery. We recommend trying Benadry! or Tylenol PM as directed to help with your sleeping difficulties. Both medications are over the counter and available withoutprescription. ? NO SMOKING!!! Smoking dramatically increases the probability of developing postoperative wound infections. ? Common complaints after lumbar and/or thoracic spine surgery include, but are not limited to: numbness and/or tingling in the legs, pain around the incision and surrounding tissues, muscle spasms, or stiffness of the middle to low back. Contact our office if these symptoms persist or if an acute change occurs. ? No driving for the first 3-5days, and not while taking narcotics [] until seen at your follow-up appointment and cleared. There are no restrictions for riding on short trips, however if you take a longer trip, arrangements should be made to make regular stops to get out of the vehicle and stretch . ? Swelling is an unfortunate event that will take place with any surgery and is the primary source of your postoperative discomfort. While walking and regular approved activities helps control inflammation, there are additional steps you can take to minimizeswelling. > Place ice over the surgical site and surrounding tissue for twenty minutes, followed by applying a low/medium heat (heating pad) for an additional twenty minutes every 1-2 hours as needed for painrelief. > You may use of over the counter anti-inflammatory medications (Ibuprofen, Motrin, Aleve, Advil, etc) as directed on the package label. These types of medicines wm significantly reduce the amount of discomfort you experience after surgery from swelling. It should be noted that if you have and allergy to any of these medications, or a history of ulcers or kidney disease you should consult you primary care provider prior to starting these medications. Discharge Attestations Time Spent in Discharge Care*: less than 30 min Status at Discharge: Cognitive status at discharge: cognitively intact , Behavioral status at discharge: cooperative , Quality Metrics Clinical Quality Measures [ No reported AMI, CVA or VTE this stay] Coding Level of Care Code Acute Code for Chg Fwd Diagnoses Acute anxiety F41.9 Attention deficit hyperactivity disorder (ADHD), predominantly inattentive type F90.0 Hyperactivity presence: present Attention deficit-hyperactivity disorder type: predominantly inattentive Major depressive disorder, recurrent severe without psychotic features F33.2 Cannabis use disorder, severe, dependence F12.20 Methadone dependence F11.20 Chronic hepatitis C without hepatic coma B18.2 Hepatic coma status: without hepatic coma Osteomyelitis of lumbar spine M46.26 Back muscle spasm M62.830 Memory loss R41.3 Traumatic brain injury with loss of consciousness, sequela S06.9X9S Encounter type: sequela Loss of consciousness presence/duration: with LOC of unspecified duration Seizure after head injury R56.1 Status post lumbar spinal fusion Z98.1 Status post lumbar laminectomy Z98.890 Paresthesia of right leg R20.2
[2024-11-10] MEDS: docusate sodium 100 mg Capsule PO (09:24)
== END 2024-11-10 11:43 | disposition home or self-care (01) ==
LOC: MEDSURG 15:50
PROVIDERS: Internal Medicine; Admitting Provider Orthopaedic Surgery; Visit Provider Orthopaedic Surgery
PROC: (CPT 20939; principal; 2024-11-09 14:10)
PROC: (CPT 63005; 2024-11-09 14:10)
PROC: (CPT 20939; 2024-11-09 14:10)
DX: T84.296A Other mechanical complication of internal fixation device of vertebrae, initial encounter (principal); Y82.8 Other medical devices associated with adverse incidents; F41.9 Anxiety disorder, unspecified; F90.0 Attention-deficit hyperactivity disorder, predominantly inattentive type; F33.2 Major depressive disorder, recurrent severe without psychotic features; F11.20 Opioid dependence, uncomplicated; R20.2 Paresthesia of skin; Z98.890 Other specified postprocedural states; Z98.1 Arthrodesis status; R56.1 Post traumatic seizures; S06.9X9S Unspecified intracranial injury with loss of consciousness of unspecified duration, sequela; X58.XXXS Exposure to other specified factors, sequela; R41.3 Other amnesia; M62.830 Muscle spasm of back; M46.26 Osteomyelitis of vertebra, lumbar region; B18.2 Chronic viral hepatitis C; F12.20 Cannabis dependence, uncomplicated; Z86.14 Personal history of Methicillin resistant Staphylococcus aureus infection; Z87.820 Personal history of traumatic brain injury; B19.20 Unspecified viral hepatitis C without hepatic coma
CPT/HCPCS: 20939; 22612; 22614; 61783; 36415; 51702; 72100; 76000; 80048; 85025; 87070; 87075; 87176; 87205; 97116; 97161; C1713; C9359; G0378; J0131; J0690; J1100; J1171; J1644; J2250; J2405; J2704; J3010; J3370; J3490; J7030; J7120; P9045; Q0169

== ENCOUNTER 2024-11-12 07:05 | Emergency (ER) | payer MEDICAID, SELFPAY ==
[2024-11-12 07:08] VITALS: BP 116/72; PULSE 75; RESP 20; TEMP 36.6; O2SAT 98; BMI 22.4
--- NOTE | 2024-11-12 07:10 | W.ED.GENADLT ---
HPI - General Adult General: Chief complaint: Anxiety Stated complaint: back pain Time Seen by Provider: 11/12/24 07:06 Source: patient and EMS Mode of arrival: EMS Limitations: no limitations History of Present Illness: 49-year-old male is very well-known to the ER the patient had back surgery 3 days ago he states he has been having extreme anxiety. He has a history of severe anxiety states he has had back pain from the surgery and is causing the extremely anxious. He states he needs some Ativan to calm down he has not been able to sleep he denies any fevers 90 drainage denies any SI or HI Associated symptoms: Deny chest pain, dyspnea, headache(s), nausea, rash or vomiting Related Data Home Medications Medication Instructions Recorded Confirmed clonidine HCl 0.1 mg tablet 0.1 mg PO TID 02/16/23 11/12/24 methadone 10 mg tablet 80 mg PO Q6H 12/29/23 11/12/24 baclofen 10 mg tablet 10 mg PO QID Chronic pain s/p back 11/08/24 11/12/24 surgery methylphenidate HCl 20 mg tablet 40 mg PO BID add 11/08/24 11/12/24 mirtazapine 15 mg tablet 15 mg PO BEDTIME 11/12/24 11/12/24 ondansetron 4 mg disintegrating 8 mg PO BID PRN Nausea 11/12/24 11/12/24 tablet Previous Rx's Medication Instructions Recorded hydrocortisone 1 %-pramoxine 1 % 1 applic DC BID PRN hemorrhoids 09/27/24 rectal foam (Proctofoam HC) #10 grams gabapentin 300 mg capsule 600 mg (2 x 300 mg) PO TID PRN 11/02/24 chronic pain 30 days #180 caps oxycodone 10 mg tablet 10 mg PO Q4H PRN pain 7 days #42 11/10/24 tabs Allergies Allergy/AdvReac Type Severity Reaction Status Date / Time levetiracetam [From Keppra] Allergy ADR-Vomitin Verified 11/08/24 14:36 g trazodone Allergy ADR-Nightma Verified 11/08/24 14:36 re haloperidol [From Haldol] AdvReac Severe ADR-Anxiety Verified 11/08/24 14:36 Iodinated Contrast Media AdvReac Mild ADR-Itching Verified 11/08/24 14:36 contrast Allergy hives Uncoded 11/08/24 14:36 Review of Systems Const: Denies: fever(s), chills, body aches or change in appetite ENMT: Denies: throat pain or dental pain Card: Denies: chest pain Resp: Denies: dyspnea GI: Denies: abdominal pain, nausea, vomiting or diarrhea Musc: Reports: back pain; Denies: neck pain Skin/Breast: Denies: rash Neuro: Denies: headache(s) PFSH ED PFSH: Medical History Cauda equina compression Lumbar vertebral collapse ADD (attention deficit disorder) History of drainage of abscess multiple Trauma in childhood Social anxiety disorder Femoral acetabular impingement Bleeding per rectum History of substance abuse Narcotic abuse Surgical History History of liver biopsy 2012 History of colonoscopy 2009 History of facial surgery 2013 Social History Smoking and tobacco/nicotine status: never used tobacco/nicotine Quit status (tobacco/nicotine): has tried quititng Number of times tried to quit tobacco: 2 Second hand smoke exposure: Yes Alcohol intake: current Substance/Drug Use: current Substance/Drug use frequency: daily Other substance/drug use details: Fentanyl Current gender identity: Male Physical Exam Const: COMMON NORMALS: no acute distress, patient oriented x3 and healthy appearing HENMT: COMMON NORMALS: normocephalic and atraumatic HEAD & SCALP: normocephalic and atraumatic Eye: COMMON NORMALS: conjunctivae normal CONJUNCTIVA: Yes conjunctivae normal Neck/C-Spine: COMMON NORMALS: full ROM and supple Chest: COMMONS NORMALS: normal inspection of the chest Resp: COMMON NORMALS: normal respiratory effort Cardio: COMMON NORMALS: regular rate, regular rhythm and No murmurs present (Cardio) RATE: regular rate RHYTHM: regular rhythm Extremity: COMMON NORMALS: normal to inspection and full ROM Neuro: COMMON NORMALS: patient oriented x3, moves all extremities and no focal motor deficits Psych: COMMON NORMALS: mental status grossly normal, Normal thought process present and cooperative MOOD & AFFECT: Yes anxious THOUGHT PROCESS: Normal thought process present Skin: COMMON NORMALS: no rashes or lesions noted and no wounds GENERAL SKIN EXAM: no rashes or lesions noted Course Vital Signs: Vital signs: Vital Signs Temperature 98 F 11/12/24 07:08 Pulse Rate 85 11/12/24 07:45 Respiratory Rate 17 11/12/24 07:45 Blood Pressure 127/75 11/12/24 07:45 Pulse Oximetry 95 11/12/24 07:45 Oxygen Delivery Me thod Room Air 11/12/24 07:21 MDM - General Adult Medical Decision Making Patient presents here with low back pain following severe anxiety he has no fevers he is here more for his anxiety than back pain he feels improved after Ativan he is stable for discharge follow-up with his surgeon return if worsening. Medical Records I reviewed the patient's medical records. No radiology studies performed this visit Discharge Plan Discharge Patient Disposition: Home Clinical Impression: Acute anxiety Chronic pain Qualifiers: Chronic pain type: due to trauma Qualified Code(s): G89.21 - Chronic pain due to trauma Condition: Stable Prescriptions: No Action clonidine HCl 0.1 mg tablet 0.1 mg PO TID methadone 10 mg tablet 80 mg PO Q6H gabapentin 300 mg capsule 600 mg PO TID PRN (Reason: chronic pain) 30 Days Qty: 180 5RF baclofen 10 mg tablet 10 mg PO QID methylphenidate HCl 20 mg tablet 40 mg PO BID oxycodone 10 mg tablet 10 mg PO Q4H PRN (Reason: pain) 7 Days Qty: 42 0RF Proctofoam HC 1-1 % foam 1 applic DC BID PRN (Reason: hemorrhoids) Qty: 10 0RF ondansetron 4 mg tablet,disintegrating 8 mg PO BID PRN (Reason: Nausea) mirtazapine 15 mg tablet 15 mg PO BEDTIME Discharge Orders: Discharge ED (Routine); Ordered 11/12/24 Ordered By: Demian Mckeon Discharge Diet: Advance as tolerated Discharge Activity: Resume usual activity Patient Instructions: Back Pain (ED), Anxiety (ED) Coding Level of Care Code ED Applications Administrator for William Chadwick
[2024-11-12] MEDS: LORazepam 2 mg/mL INJ 1 mL IM (07:17)
[2024-11-12] MEDS: HYDROcodone-acetaminophen 5-325 mg Tablet 1 TAB PO (07:17)
[2024-11-12 07:21] VITALS: BP 115/52; PULSE 83; RESP 16; O2SAT 97
[2024-11-12 07:45] VITALS: BP 127/75; PULSE 85; RESP 17; O2SAT 95
== END 2024-11-12 09:40 | disposition home or self-care (01) ==
PROVIDERS: Emergency Provider Emergency Medicine
DX: F41.8 Other specified anxiety disorders (principal); G89.21 Chronic pain due to trauma
CPT/HCPCS: 96372; 99284; J2060

== ENCOUNTER 2024-11-22 11:05 | Emergency (ER) | payer MEDICAID, SELFPAY ==
[2024-11-22 11:10] VITALS: BP 109/53; PULSE 73; RESP 18; TEMP 36.7; O2SAT 96; BMI 22.4
--- NOTE | 2024-11-22 11:32 | XRR_ITS ---
PROCEDURE INFORMATION: Exam: XR Lumbosacral Spine Exam date and time: 11/22/2024 11:45 AM Age: 49 years old Clinical indication: Low back pain; Prior surgery; Surgery date: <1 month; Surgery type: Lumbar fusion TECHNIQUE: Imaging protocol: Radiologic exam of the lumbosacral spine. Views: 2 or 3 views. COMPARISON: CR XR lumbar spine 2-3V* [id number] 03/22/2024 2:50 PM FINDINGS: Bones/joints: Status post extensive thoracolumbar posterior cordell and screw fusion, now extending to the level of S1. Stable appearance of superior compression deformity/collapse of the vertebral body of L2. No distinct evidence of hardware fracture. Soft tissues: Visualized superficial soft tissues are within normal limits. XR/XR lumbar spine 2-3V* [id number] IMPRESSION: Status post extensive thoracolumbar posterior cordell and screw fusion, now extending to the level of S1. Stable appearance of superior compression deformity/collapse of the vertebral body of L2.
--- NOTE | 2024-11-22 11:33 | ED_ITS ---
HPI - Back Pain/Injury General: Chief Complaint: Back Pain/Injury Stated Complaint: Back Pain/ Post surg Time Seen by Provider: 11/22/24 11:16 Source: patient Mode of arrival: EMS Limitations: no limitations History of Present Illness: Patient is a 49-year-old male who is well-known to our emergency department here with complaint of lower back pain and anxiety. Patient states he has a longstanding history of back problems . He has underwent several previous back surgeries most recently just a few weeks ago by Dr. Lopez. He has since followed up with Dr. Lopez as well as followed up with Dr. Kapoor with infectious disease as he does have a history of osteomyelitis in his spine. Patient states he moved wrong today and had some back pain which then triggered his anxiety and threw him into a panic attack . This is a very similar story to several previous instances when I have seen patient. He is requesting referral to a primary care provider to hopefully not have to keep coming back to the emergency department for his anxiety. MD elicited complaint: back pain and other (anxiety) Pertinent past history: prior back pain and back surgery Onset (ago): hour(s) Timing: constant Similar Symptoms Previously: Yes Location: lumbar spine Radiation: none Exacerbating factors: movement Relieving factors: none Associated symptoms: Deny abdominal pain, chills, fatigue, fecal incontinence or fever(s) Related Data Home Medications Medication Instructions Recorded Confirmed clonidine HCl 0.1 mg tablet 0.1 mg PO TID 02/16/23 11/22/24 baclofen 10 mg tablet 10 mg PO QID Chronic pain s/p back 11/08/24 11/22/24 surgery methylphenidate HCl 20 mg tablet 40 mg PO BID add 11/08/24 11/22/24 mirtazapine 15 mg tablet 15 mg PO BEDTIME 11/12/24 11/22/24 Previous Rx's Medication Instructions Recorded gabapentin 300 mg capsule 600 mg (2 x 300 mg) PO TID PRN 11/02/24 chronic pain 30 days #180 caps Bone Growth Stimulator #1 ea 11/14/24 oxycodone 10 mg tablet 10 mg PO BID PRN pain 30 days #60 11/17/24 tabs Allergies Allergy/AdvReac Type Severity Reaction Status Date / Time acetaminophen [From Tylenol] Allergy Mild Unknown Unverified 11/15/24 14:43 levetiracetam [From Keppra] Allergy ADR-Vomitin Verified 11/15/24 14:43 g trazodone Allergy ADR-Nightma Verified 11/15/24 14:43 re haloperidol [From Haldol] AdvReac Severe ADR-Anxiety Verified 11/15/24 14:43 Iodinated Contrast Media AdvReac Mild ADR-Itching Verified 11/15/24 14:43 contrast Allergy hives Uncoded 11/15/24 14:43 Review of Systems Const: Denies: fever(s), chills, body aches, fatigue or malaise Card: Denies: chest pain Resp: Denies: dyspnea GI: Denies: abdominal pain or fecal incontinence : Denies: urinary incontinence Musc: Reports: back pain; Denies: neck pain, extremity pain, extremity swelling, joint pain or joint swelling Skin/Breast: Denies: rash Psych: Reports: anxiety PFSH ED PFSH: Medical History Cauda equina compression Lumbar vertebral collapse ADD (attention deficit disorder) History of drainage of abscess multiple Trauma in childhood Social anxiety disorder Femoral acetabular impingement Bleeding per rectum History of substance abuse Narcotic abuse Surgical History History of liver biopsy 2013 History of colonoscopy 2009 History of facial surgery 2014 Social History Smoking and tobacco/nicotine status: never used tobacco/nicotine Quit status (tobacco/nicotine): has tried quititng Number of times tried to quit tobacco: 2 Second hand smoke exposure: Yes Alcohol intake: current Substance/Drug Use: current Substance/Drug use frequency: daily Other substance/drug use details: Fentanyl Current gender identity: Male Physical Exam Const: COMMON NORMALS: no acute distress, no limitations, alert and well nourished GENERAL APPEARANCE: cooperative ORIENTATION/CONSCIOUSNESS: Yes awake, Yes oriented to person, Yes oriented to place and Yes oriented to time Resp: COMMON NORMALS: normal respiratory effort and clear to auscultation bilaterally AUSCULTATION: clear to auscultation bilaterally Cardio: COMMON NORMALS: regular rate and regular rhythm RATE: regular rate RHYTHM: regular rhythm Back/Pelvis: LUMBAR SPINE/LOWER BACK: Yes lumbar spinal tenderness (mild), No paraspinal muscle spasm and Yes straight leg raise negative bilaterally PELVIS: Yes buttocks normal and No sciatic notch tenderness SACROILIAC JOINTS: Yes SI joints normal SACRUM: no tenderness COCCYX: no tenderness OTHER: ROM testing not performed due to known recent surgery; surgical incision site is well dressed and incisions appear clean and well healing-no discharge or redness present Extremity: COMMON NORMALS: capillary refill normal, no clubbing, cyanosis or edema, no calf tenderness and no pedal edema GENERAL: Yes normal exam except as noted Neuro: COMMON NORMALS: moves all extremities, no focal motor deficits and no sensory deficits noted SENSORIUM/ORIENTATION: Yes alert, Yes oriented to person, Yes oriented to place and Yes oriented to time Course Vital Signs: Vital signs: Vital Signs Temperature 98.1 F 11/22/24 11:10 Pulse Rate 52 L 11/22/24 12:03 Respiratory Rate 18 11/22/24 11:10 Blood Pressure 105/65 11/22/24 12:03 Pulse Oximetry 93 11/22/24 12:03 Oxygen Delivery Me thod Room Air 11/22/24 12:03 MDM - Back Pain/Injury Medical Decision Making Patient requesting lumbar XR. Was obtained and essentially unremarkable/stable surgeries regarding his recent surgery. There is no evidence for infection. Patient states he is mainly here because of his anxiety/panic attack which is the same complaint that he usually presents with. He was provided IM Ativan and on re-examination, he is sleeping comfortably. I woke patient and he is okay with going home at this time. He is requesting we will place a case management referral to try to get him a primary care provider and hopefully get placed back on medications to help with his anxiety. Case management referral was placed for this. Patient has allowed discharge. Recommend continued follow-up with Dr. Lopez as scheduled. Medical Records I reviewed the patient's medical records. All radiology interpretation(s) finalized by discharge Discharge Plan Discharge Patient Disposition: Home Clinical Impression: Panic attack Back pain Qualifiers: Back pain location: low back pain Chronicity: chronic Back pain laterality: midline Sciatica presence: without sciatica Qualified Code(s): M54.50 - Low back pain, unspecified Condition: Stable Prescriptions: No Action clonidine HCl 0.1 mg tablet 0.1 mg PO TID gabapentin 300 mg capsule 600 mg PO TID PRN (Reason: chronic pain) 30 Days Qty: 180 5RF (DME) Bone Growth Stimulator See Rx Instructions .Route .MEDSUPPLY Qty: 1 0RF Rx Instructions: As directed oxycodone 10 mg tablet 10 mg PO BID PRN (Reason: pain) 30 Days Qty: 60 0RF baclofen 10 mg tablet 10 mg PO QID methylphenidate HCl 20 mg tablet 40 mg PO BID mirtazapine 15 mg tablet 15 mg PO BEDTIME Discharge Orders: Discharge ED (Routine); Ordered 11/22/24 Ordered By: Merry Flores Activity Restrictions/Additional Instructions: As we discussed, I will place a case management referral to try to get you set up with primary care provider. Continue to follow-up with Dr. Lopez as scheduled. You may return to the emergency department for worsening or uncontrollable back pain, trouble ambulating, fevers, severe weakness or loss of sensation to your lower extremities, bowel or bladder incontinence/retention, or any other concerns you may have. Coding Level of Care Code ED [employer] Wheel for William Chadwick
[2024-11-22] MEDS: LORazepam 2 mg/mL INJ 1 mL IM (11:45)
[2024-11-22 12:03] VITALS: BP 105/65; PULSE 52; O2SAT 93
[2024-11-22 12:51] VITALS: BP 104/70; PULSE 46; O2SAT 94
--- NOTE | 2024-11-24 07:42 | DCPLANNER ---
messaged [facility]pf[facility] for er f/u
== END 2024-11-22 12:52 | disposition home or self-care (01) ==
PROVIDERS: Emergency Provider Physician Assistant
DX: F41.0 Panic disorder [episodic paroxysmal anxiety] (principal); M54.50 Low back pain, unspecified; Z72.0 Tobacco use
CPT/HCPCS: 72100; 96372; 99284; J2060

== ENCOUNTER 2024-12-01 10:49 | Outpatient (CLI) | payer MEDICAID, SELFPAY ==
[2024-12-01 12:19] LABS: Hepatitis B Surface Antigen Non-Reactive (Nonreactive)
[2024-12-02 15:44] LABS: HEP C RNA Viral Load Quant 5.81 Log IU/mL (NOT DETECTED); HEP C RNA Viral Load Quant 651000 IU/mL (NOT DETECTED)
== END 2024-12-01 10:50 | disposition home or self-care (01) ==
LOC: LAB 10:53
PROVIDERS: Student in an Organized Health Care Education/Training Program; PCP Family Medicine Adult Medicine; Visit Provider Family Medicine Adult Medicine
DX: B18.2 Chronic viral hepatitis C (principal); B19.20 Unspecified viral hepatitis C without hepatic coma
CPT/HCPCS: 36415; 81596; 87340; 87522

== ENCOUNTER → 2024-12-13 14:47 | Outpatient (BNVA) | payer MEDICAID, SELFPAY | PROVIDERS: PCP Family Medicine Adult Medicine; Visit Provider Orthopaedic Surgery | DX: Z98.1 Arthrodesis status (principal) | CPT/HCPCS: 72100 ==

== ENCOUNTER 2024-12-14 16:46 | Outpatient (CLI) | payer MEDICAID, SELFPAY ==
--- NOTE | 2024-12-14 16:30 | CTR_ITS ---
PROCEDURE INFORMATION: Exam: CT Lumbar Spine Without Contrast Exam date and time: 12/14/2024 5:03 PM Age: 49 years old Clinical indication: Low back pain; Prior surgery; Surgery date: 1-6 months TECHNIQUE: Imaging protocol: Computed tomography of the lumbar spine without contrast. Radiation optimization: All CT scans at this facility use at least one of these dose optimization techniques: automated exposure control; mA and/or kV adjustment per patient size (includes targeted exams where dose is matched to clinical indication); or iterative reconstruction. COMPARISON: CT lumbar spine wo con* [id number] 12/17/2023 5:46 PM RADIATION DOSE METRICS: Total DLP (mGy-cm): 370.9 FINDINGS: Bones/joints: Posterior fusion hardware extending from T11 through L5 with Daisy orthotic lucency surrounding the cortical screws at T11 and L5 which can be seen the setting of loosening. Chronic appearing fracture at L2 with prominent endplate changes at L4-L5 and severe degenerative disc disease at L3-L4. Soft tissues: Unremarkable. CT/CT lumbar spine wo con* [id number] IMPRESSION: 1. Posterior fusion hardware extending from T11 through L5 with Daisy orthotic lucency surrounding the cortical screws at T11 and L5 which can be seen the setting of loosening. 2. Chronic appearing fracture at L2 with prominent endplate changes at L4-L5 and severe degenerative disc disease at L3-L4.
== END 2024-12-14 16:47 | disposition home or self-care (01) ==
LOC: RAD 16:47
PROVIDERS: PCP Family Medicine Adult Medicine; Visit Provider Orthopaedic Surgery
DX: M51.369 Other intervertebral disc degeneration, lumbar region without mention of lumbar back pain or lower extremity pain (principal); Z98.1 Arthrodesis status; R93.89 Abnormal findings on diagnostic imaging of other specified body structures; M84.48XA Pathological fracture, other site, initial encounter for fracture
CPT/HCPCS: 72131

== ENCOUNTER 2024-12-19 14:09 | Inpatient (IN) | payer MEDICAID, SELFPAY ==
[2024-12-19] VITALS (29 sets, daily range): BP systolic 100–162; BP diastolic 42–95; PULSE 41–77; RESP 10–18; TEMP 36.1–36.6; O2SAT 93–100; BMI 21.7
--- NOTE | 2024-12-19 10:05 | W.PM.OPSUD ---
Surgery/Procedure H&P Update DATE OF PROCEDURE: December 19, 2024 DATE H&P PERFORMED: 12/15/24 H&P UPDATE INFORMATION: I have reviewed H&P completed within last 30 days, I have examined patient prior to procedure and No changes to prior documentation PREOP DIAGNOSIS: Failure of hardware; L5 radiculopathy PLANNED PROCEDURE: Operation Date: 12/19/24 10:35 Proposed Procedures p Sacroiliac Joint Fusion SI Joint Fusion(Bilateral) - Jacob Lopez DO s Lumbopelvic Fixation(Not Applicable) - Jacob Lopez DO
--- NOTE | 2024-12-19 10:17 | ANES.PREANE2 ---
Pre-Anesthetic Assessment Height/Weight: Height 6 ft Weight 160 lb Temp Pulse Resp BP Pulse Ox O2 Del Method 97.6 F 77 16 108/87 97 Room Air 12/19/24 08:44 12/19/24 08:44 12/19/24 08:44 12/19/24 08:44 12/19/24 08:44 12/19/24 08:51 Preop Diagnosis: Failure of hardware; L5 radiculopathy Operation Date: 12/19/24 10:35 Proposed Procedures p Sacroiliac Joint Fusion SI Joint Fusion(Bilateral) - Jacob Lopez DO s Lumbopelvic Fixation(Not Applicable) - Jacob Lopez DO Was Beta Sebastien taken within 24 hours: N/A Was Clonidine taken within 24 hours: Yes Last intake: Intake Last Liquid Date 12/19/24 Last Liquid Time 06:00 Last Solid Date 12/18/24 Last Solid Time 19:30 Social No alcohol smokes marijuana Exam alert, oriented x 3, clear to auscultation bilaterally and regular rate & rhythm Airway Submandibular: within normal limits Cervical ROM: within normal limits Mallampati: Class II Comments: Comments: edentulous Anesthetic Plan ASA status: 3 Anesthesia: General Other: No prior issues with anesthesia NPO since yesterday Patient has a history of polysubstance abuse, clean for 2 years. On chronic methadone. Taken today Hypertension on clonidine, taken today Patient has hepatitis C, no treatment PTSD Labs october reviewed acceptable for procedure Echo showing EF 60% Plan for general anesthesia Medications/Allergies Home Medications Medication Instructions Recorded Confirmed Last Taken Type clonidine HCl 0.1 mg tablet 0.1 mg PO TID 02/16/23 12/19/24 12/19/24 06:00 History gabapentin 300 mg capsule 600 mg (2 x 300 mg) PO TID PRN 11/02/24 12/19/24 12/19/24 06:00 Rx chronic pain 30 days #180 caps mirtazapine 15 mg tablet (Remeron) 15 mg PO BEDTIME 11/12/24 12/19/24 12/18/24 22:00 History Bone Growth Stimulator #1 ea 11/14/24 12/19/24 Unknown Rx oxycodone 10 mg tablet 10 mg PO BID PRN pain 5 days #10 12/01/24 12/19/24 12/19/24 06:00 Rx tabs methylphenidate HCl 20 mg tablet 20 mg PO BID add 30 days #60 tabs 12/02/24 12/19/24 12/18/24 17:00 Rx Wheelchair #1 ea 12/13/24 12/19/24 Unknown Rx oxycodone 10 mg tablet 10 mg PO Q4H PRN pain 7 days #42 12/13/24 12/19/24 12/16/24 Rx tabs baclofen 10 mg tablet 10 mg PO TID 12/16/24 12/19/24 12/19/24 06:00 History Allergies Allergy/AdvReac Type Severity Reaction Status Date / Time acetaminophen [From Tylenol] Allergy Mild Unknown Verified 12/19/24 08:22 fentanyl Allergy ADR-Irritab Verified 12/19/24 10:42 le levetiracetam [From Keppra] Allergy ADR-Vomitin Verified 12/19/24 08:22 g trazodone Allergy ADR-Nightma Verified 12/19/24 08:22 re haloperidol [From Haldol] AdvReac Severe ADR-Anxiety Verified 12/19/24 08:22 Iodinated Contrast Media AdvReac Mild ADR-Itching Verified 12/19/24 08:22 contrast Allergy hives Uncoded 12/19/24 08:22 [facility] Anesthesia Medical History Cauda equina compression Lumbar vertebral collapse ADD (attention deficit disorder) History of drainage of abscess multiple Trauma in childhood Social anxiety disorder Femoral acetabular impingement Bleeding per rectum History of substance abuse Narcotic abuse Surgical History History of liver biopsy 2013 History of colonoscopy 2009 History of facial surgery 2014 Social History Smoking and tobacco/nicotine status: unknown if used tobacco/nicotine Quit status (tobacco/nicotine): has tried quititng Number of times tried to quit tobacco: 2 Second hand smoke exposure: Yes Alcohol intake: current Substance/Drug Use: current Substance/Drug use frequency: daily Other substance/drug use details: Fentanyl Current gender identity: Male Data Anesthesia 12/19/24 10:28 Cardiac Studies: Echocardiogram 08/04/23 Transesophageal Echocardiogram 10/16/23
[2024-12-19 10:40] LABS: Basophils % 0.3 %; Eosinophils # 0.1 10^3/uL (0.0-0.8); Eosinophils % 1.2 %; Hematocrit 36.6 % (37-53); Lymphocytes # 1.1 10^3/uL (0.8-4.8); Lymphocytes % 11.2 %; Mean Corpuscular HGB Conc 29.2 g/dL (30-55); Mean Corpuscular Volume 75.2 fl (82-101); Monocytes # 0.4 10^3/uL (0.2-0.9); Monocytes % 4.3 %; Neutrophils # 7.98 10^3/uL (1.8-7.7); Neutrophils % 82.8 %; Nucleated Red Blood Cells % 0 %; Platelet Count 406 10^3/cmm (157-399); Red Blood Count 4.87 10^6/uL (3.85-5.65); Red Cell Distribution Width 15.6 % (12.1-15.1); White Blood Count 9.64 10^3/uL (3.29-11.43)
[2024-12-19] MEDS: sodium chloride 0.9% 1,000 ML 30 ML IV (10:43)
[2024-12-19] MEDS: ceFAZolin 2,000 mg SDV 2000 MG IVP ×2 (11:03→18:34)
[2024-12-19] MEDS: heparin, porcine 1,000 unit/mL INJ 10 mL 10000 UNIT IRRIGATION (11:30)
[2024-12-19] MEDS: lidocaine-epi 1% PF 1:200,000 30 mL SDV INJECTION (11:45)
[2024-12-19] MEDS: iohexol 300 mg/mL 50 mL Btl XX (11:50)
[2024-12-19] MEDS: VANCOMYCIN ADD-Vantage 1,000 MG VIAL 1000 MG XX (12:42)
--- NOTE | 2024-12-19 13:59 | XR_ITS ---
WS: [id number] C-ARM RADIOGRAPHS LUMBAR SPINE; 4 IMAGES HISTORY: OR PICS COMPARISON: None available. Intraoperative imaging during posterior lumbar fusion. XR/XR lumbar spine 2-3V* [id number] IMPRESSION: Intraoperative imaging during lumbar fusion procedure.
--- NOTE | 2024-12-19 14:11 | PM.OP ---
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 L3 to pelvis fusion 2. L3-S1 posterior spine instrumentation 3. Lumbopelvic instrumentation 4. L5/S1 posterior interbody fusion 5. Interbody cage placed at L5/S1 6. Open SI joint fusion on the right 7. Open SI joint fusion on the left 8. Use of computer navigation stereotactic for spine 9. Bone marrow aspirate from right iliac crest 10. Use of allograft 11. Removal of deep hardware from spine 12. Revision spine surgery Surgeon: Jacob Lopez DO Estimated blood loss (mL): 25 Procedure: 1. L3 to pelvis fusion 2. L3-S1 posterior spine instrumentation 3. Lumbopelvic instrumentation 4. L5/S1 posterior interbody fusion 5. Interbody cage placed at L5/S1 6. Open SI joint fusion on the right 7. Open SI joint fusion on the left 8. Use of computer navigation stereotactic for spine 9. Bone marrow aspirate from right iliac crest 10. Use of allograft 11. Removal of deep hardware from spine 12. Revision spine surgery Patient brought to the operative suite after undergoing anesthesia was placed in the prone position. All areas impingement well-padded. Patient is prepped and draped in normal sterile fashion. Attention was brought to doing the interbody cage at L5-S1. This was done by using the ostiaomesh from spineology. Skin incision was made lateral to the disc base on AP fluoroscopy. The starting pin was inserted this has the ability to have neurostimulation. Ensured that the nerve was not compromised during the procedure. The tube was then placed over the neurostimulator. This is the working tube that I will be working through to place the cage. A drill was then inserted under AP and lateral fluoroscopy. This was then followed by shaver. Shaver was backed in and out in order to get good endplate scraping. And then the forward pushing and the backward pushing scrapers of the endplates were then used. Pituitaries used to remove bone graft. The space was then irrigated. Then the [place] mesh was then inserted into the disc base. AP lateral fluoroscopy ensured there is good position. And then the ostial mesh was packed with bone graft 12 segments or 2 tubes were used in order to facilitate placement of the L5-S1 interbody cage. Skin incisions made using the previous skin incision extending slightly above and below. The thoracolumbar fascia was split and subperiosteal dissection was made out to the transverse process of L3 to L5 bilaterally as well as the sacral ala bilaterally. The screws were identified at L3-S1 bilaterally. Transverse processes of theL3, L4 and 5 were identified and dissected out as well. Sacrum and SI joints were dissected out as well. The screw caps and edwardo edwardo connectors were identified connecting to the L3 screw. The screws were loosened. At the end Of L5 was loosened. Edwardo and edwardo edwardo connector were removed. Then the screw was removed as well this was done bilaterally. The screw can be removed just using a rongeur did not even need to be unscrewed. Next attension was was brought to the bone marrow aspirate. This was done by using the [employer] bone marrow aspiration kit. The iliac crest was identified and through a separate incision through the fascia and the bone marrow aspiration kit was inserted into the right iliac crest. Bone marrow aspirate was taken 20 cc. This was mixed with the allograft. Next attention was brought to placing the fiducial for the C-arm. This is going to be used for the computer navigation. 2 pins were placed into the right iliac crest which were later moved to the end of the case. The fiducial was attached. C-arm was brought in and then spun around the patient. The information from serum was then later used after is loaded the computer for the placement of pedicle screws. Next attention was brought to placing the pedicle screws. This was done S1 bilaterally. The computer navigated awl was inserted into the pedicle. Followed by the pedicle feeler. Followed by placement of the screws using the computer navigation. At all these levels. Next attention was placing the iliac screws. This was done using the computer navigated awl. This is placed through the ala across the SI joint into the iliac crest. Then followed by the pedicle feeler. Followed by computer navigated tap. Bone graft was placed into the screw holes in order to facilitate more stability of the screws. 90 mm 9.5 millimeter pedicle screws were then placed into the iliac crest. This was done bilaterally. Next attention was brought to the open SI joint fusions. This was done by using the computer navigated awl crossing the SI joint. Through direct visualization as well. The pedicle feeler was used to make sure was crossed no breaches. The canal was then filled with bone graft. And then a computer navigated SI joint fusion screws placed across the SI joint. This process was done on both the right and the left side. Wounds were then irrigated. The edwardo edwardo connector was attached to the edwardo just distal to the L3 pedicle screw. The edwardo was then connected from the edwardo edwardo connector down to the S1 and into the iliac screw completing the lumbopelvic fixation. The screw caps were then torqued into position. This was done bilaterally. Next attention was brought to decorticating the transverse processes of L3 bilaterally L4 bilaterally L5 bilaterally and sacral ala bilaterally as well as the SI joints. Osteoamp bone graft was then packed into the gutters. And across the SI joint. Vancomycin powder was placed deep drain was placed and wound was closed in layered fashion with Vicryl and Monocryl. Sterile dressings were applied patient was transferred to the PACU in stable condition.
[2024-12-19] MEDS: HYDROmorphone 1 mg/mL INJ 1 mL 0.4 MG IVP ×2 (16:11→21:15)
[2024-12-19] MEDS: cloNIDine 0.1 mg Tablet PO ×2 (16:12→21:05)
[2024-12-19] MEDS: baclofen 10 mg Tablet PO ×2 (16:12→21:05)
[2024-12-19] MEDS: lactated ringers 1,000 ML 90 ML IV (16:13)
[2024-12-19] MEDS: oxyCODONE-APAP 10-325 mg Tablet PO (16:46)
[2024-12-19] MEDS: methylphenidate 10 mg Tablet 20 MG PO (17:30)
[2024-12-19] MEDS: docusate sodium 100 mg Capsule PO (17:30)
[2024-12-19] MEDS: mirtazapine 15 mg Tablet PO (21:05)
[2024-12-19] MEDS: gabapentin 300 mg Capsule 600 MG PO (21:49)
[2024-12-20] VITALS (13 sets, daily range): BP systolic 95–150; BP diastolic 58–81; PULSE 54–86; RESP 15–20; TEMP 36.6–37.4; O2SAT 94–98
[2024-12-20] MEDS: HYDROmorphone 1 mg/mL INJ 1 mL 0.4 MG IVP ×4 (00:15→21:31)
[2024-12-20] MEDS: lactated ringers 1,000 ML 90 ML IV ×2 (00:15→12:26)
[2024-12-20] MEDS: oxyCODONE-APAP 10-325 mg Tablet PO ×3 (00:42→14:33)
[2024-12-20] MEDS: diazePAM 5 mg Tablet PO (01:09)
[2024-12-20] MEDS: ceFAZolin 2,000 mg SDV 2000 MG IVP ×2 (02:29→12:14)
--- NOTE | 2024-12-20 07:55 | PM.PN ---
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: Patient's pain is controlled doing well. At this point has not been up with physical therapy yet. Vitals/I&O/Wt Last Vital Signs Temp 98.1 F 12/20/24 03:36 Pulse 54 L 12/20/24 03:36 Resp 18 12/20/24 06:17 BP 150/81 12/20/24 03:36 Pulse Ox 95 12/20/24 03:36 O2 Del Method Room Air 12/20/24 03:36 12/19/24 12/20/24 12/20/24 22:59 06:59 14:59 Intake Total 100 / 100 843 / 943 Output Total 125 / 325 620 / 945 Balance -25 / -225 223 / -2 Weight last 48 hrs Weight 162 lb Weight 160 lb Weight 160 lb Physical Exam Narrative: Alert and oriented x 3 Head is normocephalic atraumatic Respirations are intact No evidence of any rashes or infection 5/5 strength in bilateral upper and lower extremities Sensation intact in all extremities Deep tendon reflexes 2 out of 4 bilateral upper and lower extremities Urinary Catheter Management: Mcghee: Cath Placed During This Visit: yes Urinary Catheter Date of Insertion: 12/19/24 Urinary Catheter Time of Insertion: 11:00 Data 12/19/24 10:28 A&P Assessment and plan (1) Status post lumbar spinal fusion: Patient is postop day 1 thoracolumbar fusion. At this point pain is controlled will get up with therapy patient needs TLSO brace we will get the drain out. Will physical therapy assistant instructor involved for discharge. Attestations Medical Necessity Statement*: Pain control Coding Level of Care Code Acute Code for Chg Fwd Diagnoses Status post lumbar spinal fusion Z98.1
--- NOTE | 2024-12-20 10:12 | PC.CHAP ---
Pastoral Care Encounter/Spiritual Assessment Type of Contact [] Declined delivery agent visit [] Patient/Family/Request visit [] Outpatient visit [] Follow-up visit [] Physician referral [] Code/Alert [x] Routine visit [] Staff referral [] Actively dying [] Patient sleeping [] Family support [] [] Out of room [] Palliative care [] [] Receiving care in room [] Pre-surgical visit [] Trauma [] Long length of stay [] ICU visit [] Other: Relational/Emotional Strength [x] Patient feels connected with others/family/visitors/staff [] Distress [] Loneliness/isolation [] Abandonment Spirituality of Patient [x] Person of Nelida [] Attends Gnosticist of their Nelida [x] Believes in Prayer [x] Reads Bible or Protestant materials [] There are Spiritual issues to be addressed [employer] Attendant Interventions [x] Prayer [x] Active listening [x] Non-anxious presence [x] Spiritual/emotional support [] Crisis/trauma care [] Spiritual counseling [] Bereavement support [] Provided bereavement packet [] Provided Bible/devotional materials [] Provided toy/stuffed animal, coloring book to patient or family member [] Provided Communion [] Anointing/[place] [] Salvation [x] Completed spiritual assessment [] Other: Impact on Illness or Injury [] Angry [] Fearful [] Anxious [] Often cries [] Exhaustion [] Unable to work [] Unable to attend anglican [] Unable to walk/stand [] Unable to read [] Unable to drive [] Unable to eat/drink [] Unable to sleep [] Unable to be with family [] Patient intubated [] Other: Summary Time spent with patient 10 min
[2024-12-20] MEDS: gabapentin 300 mg Capsule 600 MG PO ×2 (10:13→20:54)
[2024-12-20] MEDS: methylphenidate 10 mg Tablet 20 MG PO ×2 (10:13→17:42)
[2024-12-20] MEDS: docusate sodium 100 mg Capsule PO ×2 (10:13→17:42)
[2024-12-20] MEDS: baclofen 10 mg Tablet PO ×3 (10:13→20:54)
[2024-12-20] MEDS: oxyCODONE 5 mg IR Tab/Cap PO ×2 (18:20→23:12)
[2024-12-20] MEDS: ondansetron 2 mg/ML SDV 2 mL 4 MG IVP (20:53)
[2024-12-20] MEDS: mirtazapine 15 mg Tablet PO (20:54)
[2024-12-21] VITALS (9 sets, daily range): BP systolic 114–136; BP diastolic 64–88; PULSE 74–82; RESP 16–18; TEMP 36.8–37.7; O2SAT 95–96
[2024-12-21] MEDS: oxyCODONE 5 mg IR Tab/Cap PO ×2 (04:02→09:50)
[2024-12-21] MEDS: baclofen 10 mg Tablet PO ×2 (09:05→15:16)
[2024-12-21] MEDS: cloNIDine 0.1 mg Tablet PO ×2 (09:05→15:16)
[2024-12-21] MEDS: methylphenidate 10 mg Tablet 20 MG PO (09:05)
[2024-12-21] MEDS: gabapentin 300 mg Capsule 600 MG PO ×2 (09:05→15:16)
[2024-12-21] MEDS: docusate sodium 100 mg Capsule PO (09:05)
--- NOTE | 2024-12-21 13:50 | P.DS_ITS ---
Discharge Providers Date of Admission: 12/19/24 14:09 Date of Discharge: December 21, 2024 Attending Provider at Admission: Jacob Lopez DO Attending Provider at Discharge: Jacob Lopez DO Diagnoses at Discharge Discharge Diagnosis (1) Status post lumbar spinal fusion: Status: Acute Permanent problem details: Dr. Lopez with fusion of T10-L4 on 12/18/2023 Physical Exam Narrative: Pain control patient in bed. Did well with therapy Urinary Catheter Management: Mcghee: Cath Placed During This Visit: yes Urinary Catheter Date of Insertion: 12/19/24 Urinary Catheter Time of Insertion: 11:00 Discharge Data Studies Completed and Pending Completed Studies During Hospitalization Category Date Time Status XR lumbar spine 2-3V* [id number] Routine Exams 12/19/24 13:59 Completed Radiology Impressions Lumbar Spine X-Ray 12/19/24 13:59 IMPRESSION: Intraoperative imaging during lumbar fusion procedure. Laboratory Results WBC 9.64 10^3/uL (3.29-11.43) 12/19/24 10:28 RBC 4.87 10^6/uL (3.85-5.65) 12/19/24 10:28 Hgb 10.70 g/dL (11.27-16.99) L 12/19/24 10:28 Hct 36.6 % (37-53) L 12/19/24 10:28 MCV 75.2 fl (82-101) L 12/19/24 10:28 MCH 22.0 pg (27-33) L 12/19/24 10:28 MCHC 29.2 g/dL (30-55) L 12/19/24 10:28 RDW 15.6 % (12.1-15.1) H 12/19/24 10:28 Plt Count 406 10^3/cmm (157-399) H 12/19/24 10:28 MPV 9.0 fL (7.4-10.4) 12/19/24 10:28 Neut % (Auto) 82.8 % 12/19/24 10:28 Lymph % (Auto) 11.2 % 12/19/24 10:28 [place] % (Auto) 4.3 % 12/19/24 10:28 Eos % (Auto) 1.2 % 12/19/24 10:28 Baso % (Auto) 0.3 % 12/19/24 10:28 Neut # (Auto) 7.98 10^3/uL (1.8-7.7) H 12/19/24 10:28 Lymph # (Auto) 1.1 10^3/uL (0.8-4.8) 12/19/24 10:28 [place] # (Auto) 0.4 10^3/uL (0.2-0.9) 12/19/24 10:28 Eos # (Auto) 0.1 10^3/uL (0.0-0.8) 12/19/24 10:28 Baso # (Auto) 0.0 10^3/uL (0.0-0.1) 12/19/24 10:28 Nucleated RBC % (auto) 0 % 12/19/24 10: Nucleated RBCs # 0.0 /100WBC 12/19/24 10:28 Blood Type B Positive 12/19/24 10:28 Rho(D) Type Rh positive 12/19/24 10:28 Antibody Screen Negative 12/19/24 10:28 Vitals Last Vital Signs Temp 98.8 F 12/21/24 12:00 Pulse 80 12/21/24 12:00 Resp 17 12/21/24 12:00 BP 114/64 12/21/24 12:00 Pulse Ox 96 12/21/24 12:00 O2 Del Method Room Air 12/21/24 12:00 Discharge Plan Discharge Patient Disposition: Home Condition: Stable Prescriptions: New oxycodone 10 mg tablet 10 mg PO Q4H PRN (Reason: pain) 7 Days Qty: 42 0RF Continued clonidine HCl 0.1 mg tablet 0.1 mg PO TID (DME) Wheelchair See Rx Instructions .Route .MEDSUPPLY Qty: 1 0RF Rx Instructions: As directed gabapentin 300 mg capsule 600 mg PO TID PRN (Reason: chronic pain) 30 Days Qty: 180 5RF (DME) Bone Growth Stimulator See Rx Instructions .Route .MEDSUPPLY Qty: 1 0RF Rx Instructions: As directed methylphenidate HCl 20 mg tablet 20 mg PO BID 30 Days Qty: 60 0RF baclofen 10 mg tablet 10 mg PO TID Rx Instructions: TAKE ONE TABLET BY MOUTH THREE TIMES DAILY FOR chronic pain back surgery mirtazapine [Remeron] 15 mg tablet 15 mg PO BEDTIME Discontinued oxycodone 10 mg tablet 10 mg PO BID PRN (Reason: pain) 5 Days Qty: 10 0RF oxycodone 10 mg tablet 10 mg PO Q4H MDD 6 PRN (Reason: pain) 7 Days Qty: 42 0RF Discharge Orders: Discharge Order (Routine); Ordered 12/21/24 Ordered By: Jacob Lopez Other Ambulatory Orders: DME: Wheelchair (Order) Location: None Selected Ordered By: Jacob Lopez Referrals: Jacob Lopez DO [Physician] - 01/05/25 3:15 pm Discharge Diet: Advance as tolerated Discharge Activity: Limit activity as instructed Patient Instructions: Oxycodone, Rapid Release (By mouth), Acute Wound Care (DC), Opioid Safety, Post Anesthesia Care Activity Restrictions/Additional Instructions: Thank you for [facility] for your care! The following is a list of instructions, from your provider, to follow upon your discharge to ensure you have the optimal recovery from your recent injury orsurgery. Follow-up care is a quintana part of your treatment and safety. Be sure to make and go to all appointments, and call your doctor if you are having problems. If you do not already have a follow-up appointment made, call Dr. Lopez office in the next 1-3 days to make follow up appointment for 1 weeks at [phone]. It is also a good idea to know your test results and keep a list of the medicines you take. Medications will be prescribed for you at your provider's discretion. These medications are to be used as instructed; if they are taken more often that prescribed they will not be refilled early and in most cases will not be refilled at all. > When a refill is needed,you should contact lori monroe 2-3 business days before your prescription runs out. Medications will NOT be refilled by content administrator providers after hours! > Many pain medications contain Tylenol (Acetaminophen). Do not consume more than 4,000 mg of Tylenol per day in total with any combination ofmedications. > Pain medications can cause constipation. Please use an over the counter stool softener as directed, while taking pain medications. Consulty our local pharmacist with questions or recommendations on stool softeners. If constipation persists, contact our office or your primary care provider. > While under our care,you are not to receive pain medications or other controlled substances from any other provider unless our office is notified and approves. Any attempts to do so will result in refusal to prescribe any further pain medications and possible dismissal from our practice. ? Follow-up in 1 week but change dressing then. ? Showering is permitted, however we ask that you do not take a bath, sit in a whirlpool / Jacuzzi, or go swimming for 1 month. For only the first 2 days after surgery, lt wilt be necessary for you to cover your wound/dressing with plastic and tape to keep it dry. ? Walking is essential for the healing process after surgery. We would like you to slowly advance your walking. This should be done on relatively flat clear ground (inside or out) or can be done on a treadmill. Remember this goal does not have to happen all at once, slowly increase your distance and duration. This can be broken into more more than one walk per day as tolerated. Patients who walk as directed after surgery rarely require Physical Therapy. In the unlikely event this issue arises your provider will direct hospital staff to make the appropriate arrangements. ? No lifting over 5 pounds {a gallon of milk) or bending/twisting until further notice. Each of these activities places an unnecessary amount of stress onto the body and can impede the delicate healing process. > Instead of bending at the waist, keep your back straight and bend at the knees. > Instead of twisting your torso, keep your back straight and turn your entire body with your feet. ? You may sleep in any position which makes you comfortable. Many patients find comfort sleeping in a reclining chair. It is not abnormal to have difficulty sleeping for the first several weeks following your surgery. We re commend trying Benadry! or Tylenol PM as directed to help with your sleeping difficulties. Both medications are over the counter and available withoutprescription. ? NO SMOKING!!! Smoking dramatically increases the probability of developing postoperative wound infections. ? Common complaints after lumbar and/or thoracic spine surgery include, but are not limited to: numbness and/or tingling in the legs, pain around the incision and surrounding tissues, muscle spasms, or stiffness of the middle to low back. Contact our office if these symptoms persist or if an acute change occurs. ? No driving for the first 3-5days, and not while taking narcotics [] until seen at your follow-up appointment and cleared. There are no restrictions for riding on short trips, however if you take a longer trip, arrangements should be made to make regular stops to get out of the vehicle and stretch . ? Swelling is an unfortunate event that will take place with any surgery and is the primary source of your postoperative discomfort. While walking and regular approved activities helps control inflammation, there are additional steps you can take to minimizeswelling. > Place ice over the surgical site and surrounding tissue for twenty minutes, followed by applying a low/medium heat (heating pad) for an additional twenty minutes every 1-2 hours as needed for painrelief. > You may use of over the counter anti-inflammatory medications (Ibuprofen, Motrin, Aleve, Advil, etc) as directed on the package label. These types of medicines wm significantly reduce the amount of discomfort you experience after surgery from swelling. It should be noted that if you have and allergy to any of these medications, or a history of ulcers or kidney disease you should consult you primary care provider prior to starting these medications. Discharge Attestations Time Spent in Discharge Care*: less than 30 min Status at Discharge: Cognitive status at discharge: cognitively intact , Behavioral status at discharge: cooperative , Quality Metrics Clinical Quality Measures [ No reported AMI, CVA or VTE this stay] Coding Level of Care Code Acute Code for Chg Fwd Diagnoses Status post lumbar spinal fusion Z98.1
[2024-12-21] MEDS: diazePAM 5 mg Tablet PO (14:31)
[2024-12-21] MEDS: ondansetron 2 mg/ML SDV 2 mL 4 MG IVP (14:31)
--- NOTE | 2024-12-21 16:08 | PC.NURSE ---
Discussed discharge with patient, follow up appointments, new medications, discontinued medications and signs and symptoms of infection. Patient verbalized understanding.
== END 2024-12-21 16:10 | disposition home or self-care (01) | DRG 428 ==
LOC: MEDSURG 14:25
PROVIDERS: Admitting Provider Orthopaedic Surgery; Visit Provider Orthopaedic Surgery
PROC: 0SG30AJ Fusion of Lumbosacral Joint with Interbody Fusion Device, Posterior Approach, Anterior Column, Open Approach (ICD-10-PCS; CPT 27280; principal; 2024-12-19 10:35)
PROC: 0SG30AJ Fusion of Lumbosacral Joint with Interbody Fusion Device, Posterior Approach, Anterior Column, Open Approach (ICD-10-PCS; 2024-12-19 10:35)
DX: T84.226A Displacement of internal fixation device of vertebrae, initial encounter (principal); Y79.8 Miscellaneous orthopedic devices associated with adverse incidents, not elsewhere classified; M54.16 Radiculopathy, lumbar region; F11.90 Opioid use, unspecified, uncomplicated; I10 Essential (primary) hypertension; B19.20 Unspecified viral hepatitis C without hepatic coma; F98.8 Other specified behavioral and emotional disorders with onset usually occurring in childhood and adolescence; F40.10 Social phobia, unspecified; F17.210 Nicotine dependence, cigarettes, uncomplicated; M85.80 Other specified disorders of bone density and structure, unspecified site; M40.209 Unspecified kyphosis, site unspecified
CPT/HCPCS: 36415; 51702; 72100; 76000; 85025; 86850; 86900; 87086; 97116; 97162; 97530; C1713; C1762; C1781; C9359; J0690; J1100; J1171; J1644; J1885; J2250; J2405; J2704; J3010; J3370; J3490; J7030; J7120; L0456; Q9967

== ENCOUNTER → 2025-01-26 15:49 | Outpatient (BNVA) | payer MEDICAID, SELFPAY | PROVIDERS: Family Provider Family Medicine; PCP Family Medicine; Visit Provider Orthopaedic Surgery | DX: Z98.1 Arthrodesis status (principal) | CPT/HCPCS: 72100 ==

== ENCOUNTER → 2025-02-23 15:41 | Outpatient (BNVA) | payer MEDICAID, SELFPAY | PROVIDERS: Family Provider Family Medicine; PCP Family Medicine; Visit Provider Orthopaedic Surgery | DX: Z98.1 Arthrodesis status (principal) | CPT/HCPCS: 72100 ==

== ENCOUNTER → 2025-03-24 13:44 | Outpatient (BNVA) | payer MEDICAID, SELFPAY | PROVIDERS: Family Provider Family Medicine; PCP Family Medicine; Visit Provider Family Medicine | DX: D64.9 Anemia, unspecified (principal) | CPT/HCPCS: 85025 ==

== ENCOUNTER → 2025-04-04 15:37 | Outpatient (BNVA) | payer MEDICAID, SELFPAY | PROVIDERS: Family Provider Family Medicine; PCP Family Medicine; Visit Provider Orthopaedic Surgery | DX: Z98.1 Arthrodesis status (principal) | CPT/HCPCS: 72100 ==

== ENCOUNTER → 2025-06-22 08:06 | Outpatient (BNVA) | payer MEDICAID, SELFPAY | PROVIDERS: Family Provider Family Medicine; PCP Family Medicine; Visit Provider Orthopaedic Surgery | DX: Z98.1 Arthrodesis status (principal); M54.9 Dorsalgia, unspecified; M21.371 Foot drop, right foot | CPT/HCPCS: 72100 ==

== ENCOUNTER → 2025-07-04 15:34 | Outpatient (BNVA) | payer MEDICAID, SELFPAY | PROVIDERS: Family Provider Family Medicine; PCP Family Medicine; Visit Provider Orthopaedic Surgery | DX: Z98.1 Arthrodesis status (principal) | CPT/HCPCS: 72100; 99213 ==

== ENCOUNTER → 2025-08-01 14:31 | Outpatient (BNVA) | payer MEDICAID, SELFPAY | PROVIDERS: Family Provider Family Medicine; PCP Family Medicine; Referring Provider Orthopaedic Surgery; Visit Provider Specialist | DX: M21.371 Foot drop, right foot (principal) | CPT/HCPCS: 95909 ==

== ENCOUNTER → 2025-09-26 15:01 | Outpatient (BNVA) | payer MEDICAID, SELFPAY | PROVIDERS: Family Provider Family Medicine; PCP Family Medicine; Visit Provider Orthopaedic Surgery | DX: M54.9 Dorsalgia, unspecified (principal); Z98.1 Arthrodesis status | CPT/HCPCS: 72100; 99213 ==

== ENCOUNTER 2025-10-19 15:28 | Outpatient (CLI) | payer MEDICAID, SELFPAY ==
--- NOTE | 2025-10-19 15:30 | XR_ITS ---
WS: [id number] DEXA (DUAL ENERGY X-RAY ABSORPTIOMETRY) Bone mineral density was performed using a [employer] machine. HISTORY: bone disorder COMPARISON: 10/13/2023 RIGHT forearm BMD: 0.984. T score: -0.1 Z score: 0.0 Total hip BMD: Left: 0.748 g/cm2. T score: -2.4 Z score: -2.0 Right: 0.739 g/cm2. T score: -2.5 Z score: -2.0 10 year probability of a major osteoporotic fracture is 17.8%. Compared to the prior study from 10/13/2023. Bilateral hips bone mineral density has decreased by 23.7%. XR/XR DEXA axial skeleton* [id number] IMPRESSION: OSTEOPOROSIS, male patient. Significant decrease in bone mineral density within the hips since the prior .
== END 2025-10-19 15:29 | disposition home or self-care (01) ==
PROVIDERS: PCP Family Medicine; Visit Provider Family Medicine
DX: Z13.820 Encounter for screening for osteoporosis (principal); M89.9 Disorder of bone, unspecified; M81.0 Age-related osteoporosis without current pathological fracture
CPT/HCPCS: 77080

== ENCOUNTER → 2025-11-07 15:30 | Outpatient (BNVA) | payer MEDICAID, SELFPAY | PROVIDERS: PCP Family Medicine; Visit Provider Orthopaedic Surgery | DX: S32.020D Wedge compression fracture of second lumbar vertebra, subsequent encounter for fracture with routine healing (principal); M47.812 Spondylosis without myelopathy or radiculopathy, cervical region; M46.26 Osteomyelitis of vertebra, lumbar region; M54.6 Pain in thoracic spine; X58.XXXD Exposure to other specified factors, subsequent encounter | CPT/HCPCS: 72050; 72072; 72100; 99213 ==

== ENCOUNTER 2025-11-17 14:09 | Outpatient (CLI) | payer MEDICAID, SELFPAY ==
--- NOTE | 2025-11-17 14:15 | CTR_ITS ---
PROCEDURE INFORMATION: Exam: CT Lumbar Spine Without Contrast Exam date and time: 11/17/2025 2:24 PM Age: 50 years old Clinical indication: Low back pain; Prior Surgery; Surgery Date: 6+ months; Surgery Type: spinal fusion x 4; Additional Info: lumbar back pain TECHNIQUE: Imaging protocol: Computed tomography of the lumbar spine without contrast. Radiation optimization: All CT scans at this facility use at least one of these dose optimization techniques: automated exposure control; mA and/or kV adjustment per patient size (includes targeted exams where dose is matched to clinical indication); or iterative reconstruction. COMPARISON: 1. CT lumbar spine wo con* [id number] 12/14/2024 5:[address] lumbar spine wo con* [id number] 12/17/2023 5:46 PM RADIATION DOSE METRICS: Total DLP (mGy-cm): 934.31 FINDINGS: Bones/joints: Posterior fixation hardware consisting of pedicle screws and vertical rods extend from T10-S2. The T10 level is not included on this study. At T11, the right pedicle screw breaches the central canal by 6 mm. At T12, the right pedicle screw similarly breaches the canal. There has been previous removal of pedicle screws at L4. Old fracture of L1 and L2 with virtual fusion of these vertebral bodies. Bilateral laminectomies at both levels. Generalized decrease in bone density since prior study. There has been some improvement in bone density however at the L5 level since prior study. Other fixation screws extend through the sacrum and SI joints bilaterally. Relative lucency around the screws suggest possibility of loosening or infection. There has been interval progressive osteopenia with loss of the anterior cortex of the sacrum and definition of the S1-S2 segment definition. L1-L2: No significant disc bulge or herniation. No severe spinal canal stenosis. No significant neural foraminal narrowing. L2-L3: No significant disc bulge or herniation. No severe spinal canal stenosis. No significant neural foraminal narrowing. L3-L4: No significant disc bulge or herniation. No severe spinal canal stenosis. No significant neural foraminal narrowing. L4-L5: No significant disc bulge or herniation. No severe spinal canal stenosis. No significant neural foraminal narrowing. L5-S1: No significant disc bulge or herniation. No severe spinal canal stenosis. No significant neural foraminal narrowing. Kidneys and ureters: The kidneys are unremarkable. No urinary tract stones or obstruction noted. Appendix: The appendix is visualized and appears normal. Vasculature: Aorta with minimal atherosclerotic calcification. No aneurysm. Soft tissues: Unremarkable. No soft tissue fluid collection or abnormal ectopic air. CT/CT lumbar spine wo con* [id number] IMPRESSION: 1. There has been interval progressive osteopenia with loss of the anterior cortex of the sacrum and definition of the S1-S2 segment definition. This pattern is suspicious for possible osteomyelitis. 2. At T11, the right pedicle screw breaches the central canal by 6 mm. At T12, the right pedicle screw similarly breaches the canal. 3. Other fixation screws extend through the sacrum and SI joints bilaterally. These are new since prior study. Relative lucency around the screws suggest possibility of loosening or infection as well.
--- NOTE | 2025-11-17 14:15 | CTR_ITS ---
PROCEDURE INFORMATION: Exam: CT Thoracic Spine Without Contrast Exam date and time: 11/17/2025 2:24 PM Age: 50 years old Clinical indication: Pain in thoracic spine; Prior Surgery; Surgery Date: 6+ months; Surgery Type: spinal fusion x 4; Additional Info: thoracic pain TECHNIQUE: Imaging protocol: Computed tomography of the thoracic spine without contrast. Radiation optimization: All CT scans at this facility use at least one of these dose optimization techniques: automated exposure control; mA and/or kV adjustment per patient size (includes targeted exams where dose is matched to clinical indication); or iterative reconstruction. COMPARISON: 1. CT thoracic spin wo con* [id number] 12/17/2023 5:43 PM 2. MR thoracic spin wo con* [id number] 11/08/2023 2:22 PM RADIATION DOSE METRICS: Total DLP (mGy-cm): 934.31 FINDINGS: Bones/joints: Posterior fixation hardware extends from T10 to T12, and beyond to the sacrum. Right T10 pedicle screw breaches the spinal canal wall by 6 mm. There is some slight lucency around both screws at T10. Right T11 and T12 pedicle screws also breech the right canal wall by 6 mm. Bone density remains unremarkable. No acute fractures are appreciated. Mild degenerative changes are seen throughout, with moderate degenerative changes in the lower cervical spine. Soft tissues: Unremarkable. No abnormal fluid or air collections. Vasculature: There is no evidence of aortic aneurysm. No significant atherosclerotic changes noted. Lungs: Right lung demonstrates mild pleural-parenchymal scarring in the lower lobe. No airspace disease or suspicious pulmonary nodules are appreciated. CT/CT thoracic spin wo con* [id number] IMPRESSION: 1. Right T10 pedicle screw breaches the spinal canal wall by 6 mm. There is some slight lucency around both screws. Right T11 and T12 pedicle screws also breech the right canal wall by 6 mm. 2. Loosening or infection of pedicle screws at T10 is not excluded. This level was not included on prior studies. 3. See separate report for lumbar spine findings.
== END 2025-11-17 14:10 | disposition home or self-care (01) ==
LOC: RAD 14:11
PROVIDERS: PCP Family Medicine; Visit Provider Orthopaedic Surgery
DX: M46.26 Osteomyelitis of vertebra, lumbar region (principal); M85.88 Other specified disorders of bone density and structure, other site; M47.814 Spondylosis without myelopathy or radiculopathy, thoracic region; J98.4 Other disorders of lung
CPT/HCPCS: 72128; 72131

== ENCOUNTER → 2025-11-21 15:15 | Outpatient (BNVA) | payer MEDICAID, SELFPAY | PROVIDERS: PCP Family Medicine; Visit Provider Orthopaedic Surgery | DX: Z98.1 Arthrodesis status (principal); Z51.89 Encounter for other specified aftercare | CPT/HCPCS: 99213 ==